=== PATIENT | female | born 1950 | race American Indian/Alaskan Native ===

== ENCOUNTER 2019-01-12 23:29 | Inpatient (IN) | payer MEDICARE ==
[2019-01-12] MEDS ORDERED: MINERAL OIL/PETROLATUM, WHITE OPHTH OINT 3.5 GM OU PRN (23:54)
[2019-01-12] MEDS ORDERED: LIP THERAPY VASELINE TP PRN (23:54)
[2019-01-13] MEDS ORDERED: LORazepam 2 MG/ML VIAL IV ONE (00:03)
--- NOTE | 2019-01-13 00:03 | Emergency Department Report ---
ED Shortness of Breath HPI - General Stated Complaint: SOB Time Seen by Provider: 01/12/19 23:53 Source: family (sister), EMS Limitations: Altered Mental Status - History of Present Illness Initial Comments: 68-year-old female with only past medical history of a psychiatric condition and cerbral palsy presents to the hospital with acute respiratory distress that started 30 minutes prior to arrival. Pts sister/roomate/instrument lens inspector at the bedside. She states at patient's baseline she can speak but can't hold a full conversation and she gets assistance from a home health nurse to take care of her. She states that otherwise patient ambulates without difficulty. Patient also suffers from chronic constipation and takes MiraLAX and metamucil on the regular basis. Tonight her sister noticed that abdomen was more distended than usual. Patient went to the bathroom and had a large hard bowel movement and then developed shortness of breath. Upon arrival patient is on a nonrebreather with agonal respirations satting in the mid to high 90's. She does not respond to verbal or painful stimuli. Abdomen was noted to be hard and distended. Decision made to intubate the patient immediately upon arrival. Patient's only previous abdominal surgical history is a PEG tube which is no longer present. Patient's medications include trazodone, Seroquel, and Ativan. - Related Data Previous Rx's Medication Instructions Recorded Last Taken Type Ibuprofen [Motrin 400 MG tab] 400 mg PO Q8H PRN #30 tablet 12/07/13 Unknown Rx Allergies Allergy/AdvReac Type Severity Reaction Status Date / Time No Known Allergies Allergy Unverified 12/07/13 17:18 ED Review of Systems ROS: Stated complaint: SOB Other details as noted in HPI ED Past Medical Hx - Past Medical History Hx Seizures: Yes Hx Psychiatric Treatment: Yes (schizophrenia) Additional medical history: Chronic Constipation. cerbral palsy - Surgical History Past Surgical History?: Yes Additional Surgical History: PEG tube placement in the past - Social History Smoking Status: Never Smoker Substance Use Type: None - Medications Home Medications: Home Medications Medication Instructions Recorded Confirmed Last Taken Type Ibuprofen [Motrin 400 MG tab] 400 mg PO Q8H PRN #30 tablet 12/07/13 Unknown Rx ED Physical Exam - Other Other exam information: General: Positive distress Head: Atraumatic Eyes: normal appearance ENT: Moist mucous membranes Neck: Normal appearance Chest: Tachypnea, agonal respirations, diminished breath sounds CV: Tachycardic regular rhythm Abdomen: Firm, distended Back: Normal inspection Extremity: Normal inspection Neuro: Lethargic, not follow commands, nonverbal ED Course Vital Signs 01/12/19 01/12/19 01/13/19 23:38 23:45 00:00 Temperature Pulse Rate 144 H 124 H 118 H Respiratory 19 22 16 Rate Blood Pressure 134/92 124/96 124/96 Blood Pressure [Right] O2 Sat by Pulse 95 96 Oximetry 01/13/19 01/13/19 01/13/19 00:15 00:30 00:45 Temperature Pulse Rate 115 H 113 H 112 H Respiratory 18 15 14 Rate Blood Pressure 129/88 137/93 145/95 Blood Pressure [Right] O2 Sat by Pulse Oximetry 01/13/19 01/13/19 01/13/19 01:00 01:01 01:36 Temperature 98.4 F Pulse Rate 111 H 112 H 109 H Respiratory 13 14 11 L Rate Blood Pressure 136/94 136/94 Blood Pressure 136/94 [Right] O2 Sat by Pulse 99 Oximetry 01/13/19 01:45 Temperature Pulse Rate 108 H Respiratory 13 Rate Blood Pressure Blood Pressure [Right] O2 Sat by Pulse 100 Oximetry - Intubation Time Out Performed: Yes Sedative: Etomidate Mg Given: 20 Paralytic: Succinylcholine Mg Given: 100 Laryngoscope: Samantha Size: 3 ET Tube Size: 7.5 Tube Secured Depth (cm): 22 Tube Secured Location: lips Tube Placement Confirmation: visualized tube passing t, equal breath sounds bilat, no breath sounds over epi, confirmation by capnometr Patient Tolerated Procedure: well Intubation Complications: none ED Medical Decision Making - Lab Data Result diagrams: 01/13/19 00:27 01/13/19 00:27 Lab Results 01/13/19 01/13/19 01/13/19 Range/Units 00:27 00:27 00:27 WBC 6.7 (4.5-11.0) K/mm3 RBC 3.36 L (3.65-5.03) M/mm3 Hgb 10.3 (10.1-14.3) gm/dl Hct 31.2 (30.3-42.9) % MCV 93 (79-97) fl MCH 31 (28-32) pg MCHC 33 (30-34) % RDW 14.0 (13.2-15.2) % Plt Count 194 (140-440) K/mm3 Lymph % (Auto) 4.2 L (13.4-35.0) % Emanuel % (Auto) 6.5 (0.0-7.3) % Eos % (Auto) 0.0 (0.0-4.3) % Baso % (Auto) 0.2 (0.0-1.8) % Lymph # 0.3 L (1.2-5.4) K/mm3 Emanuel # 0.4 (0.0-0.8) K/mm3 Eos # 0.0 (0.0-0.4) K/mm3 Baso # 0.0 (0.0-0.1) K/mm3 Seg Neutrophils % 89.1 H (40.0-70.0) % Seg Neutrophils # 5.9 (1.8-7.7) K/mm3 PT 14.0 (12.2-14.9) Sec. INR 1.09 (0.87-1.13) APTT TNR D-Dimer 135.00 (0-234) ng/mlDDU POC ABG pH (7.35-7.45) POC ABG pCO2 (35-45) POC ABG pO2 (80-105) POC ABG HCO3 (22-26 mml/L) POC ABG Total CO2 (23-27mmol/L) POC ABG O2 Sat POC ABG Base Excess ((-2) - (+3)mmol/L) VBG pH 7.178 L* (7.320-7.420) FiO2 % Sodium (137-145) mmol/L Potassium (3.6-5.0) mmol/L Chloride (98-107) mmol/L Carbon Dioxide (22-30) mmol/L Anion Gap mmol/L BUN (7-17) mg/dL Creatinine (0.7-1.2) mg/dL Estimated GFR ml/min BUN/Creatinine Ratio % Glucose (65-100) mg/dL Lactic Acid (0.7-2.0) mmol/L Calcium (8.4-10.2) mg/dL Total Bilirubin (0.1-1.2) mg/dL AST (5-40) units/L ALT (7-56) units/L Alkaline Phosphatase (35-129) units/L Ammonia (25-60) umol/L Total Creatine Kinase (30-135) units/L CK-MB (CK-2) (0.0-4.0) ng/mL CK-MB (CK-2) Rel Index (0-4) Troponin T (0.00-0.029) ng/mL NT-Pro-B Natriuret Pep (0-900) pg/mL Total Protein (6.3-8.2) g/dL Albumin (3.9-5) g/dL Albumin/Globulin Ratio % 01/13/19 01/13/19 01/13/19 Range/Units 00:27 00:27 00:27 WBC (4.5-11.0) K/mm3 RBC (3.65-5.03) M/mm3 Hgb (10.1-14.3) gm/dl Hct (30.3-42.9) % MCV (79-97) fl MCH (28-32) pg MCHC (30-34) % RDW (13.2-15.2) % Plt Count (140-440) K/mm3 Lymph % (Auto) (13.4-35.0) % Emanuel % (Auto) (0.0-7.3) % Eos % (Auto) (0.0-4.3) % Baso % (Auto) (0.0-1.8) % Lymph # (1.2-5.4) K/mm3 Emanuel # (0.0-0.8) K/mm3 Eos # (0.0-0.4) K/mm3 Baso # (0.0-0.1) K/mm3 Seg Neutrophils % (40.0-70.0) % Seg Neutrophils # (1.8-7.7) K/mm3 PT (12.2-14.9) Sec. INR (0.87-1.13) APTT D-Dimer (0-234) ng/mlDDU POC ABG pH (7.35-7.45) POC ABG pCO2 (35-45) POC ABG pO2 (80-105) POC ABG HCO3 (22-26 mml/L) POC ABG Total CO2 (23-27mmol/L) POC ABG O2 Sat POC ABG Base Excess ((-2) - (+3)mmol/L) VBG pH (7.320-7.420) FiO2 % Sodium 141 (137-145) mmol/L Potassium 4.2 (3.6-5.0) mmol/L Chloride 109.1 H (98-107) mmol/L Carbon Dioxide 20 L (22-30) mmol/L Anion Gap 16 mmol/L BUN 29 H (7-17) mg/dL Creatinine 0.7 (0.7-1.2) mg/dL Estimated GFR > 60 ml/min BUN/Creatinine Ratio 41 % Glucose 175 H (65-100) mg/dL Lactic Acid 2.90 H* (0.7-2.0) mmol/L Calcium 7.8 L (8.4-10.2) mg/dL Total Bilirubin < 0.20 (0.1-1.2) mg/dL AST 33 (5-40) units/L ALT 28 (7-56) units/L Alkaline Phosphatase 85 (35-129) units/L Ammonia 25.0 (25-60) umol/L Total Creatine Kinase 106 (30-135) units/L CK-MB (CK-2) 7.7 H (0.0-4.0) ng/mL CK-MB (CK-2) Rel Index 7.2 H (0-4) Troponin T < 0.010 (0.00-0.029) ng/mL NT-Pro-B Natriuret Pep 52.36 (0-900) pg/mL Total Protein 6.0 L (6.3-8.2) g/dL Albumin 3.3 L (3.9-5) g/dL Albumin/Globulin Ratio 1.2 % 01/13/19 Range/Units 02:14 WBC (4.5-11.0) K/mm3 RBC (3.65-5.03) M/mm3 Hgb (10.1-14.3) gm/dl Hct (30.3-42.9) % MCV (79-97) fl MCH (28-32) pg MCHC (30-34) % RDW (13.2-15.2) % Plt Count (140-440) K/mm3 Lymph % (Auto) (13.4-35.0) % Emanuel % (Auto) (0.0-7.3) % Eos % (Auto) (0.0-4.3) % Baso % (Auto) (0.0-1.8) % Lymph # (1.2-5.4) K/mm3 Emanuel # (0.0-0.8) K/mm3 Eos # (0.0-0.4) K/mm3 Baso # (0.0-0.1) K/mm3 Seg Neutrophils % (40.0-70.0) % Seg Neutrophils # (1.8-7.7) K/mm3 PT (12.2-14.9) Sec. INR (0.87-1.13) APTT D-Dimer (0-234) ng/mlDDU POC ABG pH 7.276 L (7.35-7.45) POC ABG pCO2 49.4 H (35-45) POC ABG pO2 156 H (80-105) POC ABG HCO3 23.0 (22-26 mml/L) POC ABG Total CO2 24 (23-27mmol/L) POC ABG O2 Sat 99 POC ABG Base Excess -4 ((-2) - (+3)mmol/L) VBG pH (7.320-7.420) FiO2 50 % Sodium (137-145) mmol/L Potassium (3.6-5.0) mmol/L Chloride (98-107) mmol/L Carbon Dioxide (22-30) mmol/L Anion Gap mmol/L BUN (7-17) mg/dL Creatinine (0.7-1.2) mg/dL Estimated GFR ml/min BUN/Creatinine Ratio % Glucose (65-100) mg/dL Lactic Acid (0.7-2.0) mmol/L Calcium (8.4-10.2) mg/dL Total Bilirubin (0.1-1.2) mg/dL AST (5-40) units/L ALT (7-56) units/L Alkaline Phosphatase (35-129) units/L Ammonia (25-60) umol/L Total Creatine Kinase (30-135) units/L CK-MB (CK-2) (0.0-4.0) ng/mL CK-MB (CK-2) Rel Index (0-4) Troponin T (0.00-0.029) ng/mL NT-Pro-B Natriuret Pep (0-900) pg/mL Total Protein (6.3-8.2) g/dL Albumin (3.9-5) g/dL Albumin/Globulin Ratio % - EKG Data -: EKG Interpreted by Me EKG shows normal: sinus rhythm, ST-T waves (no stemi or t inv) Rate: tachycardia (107) - Radiology Data Radiology results: report reviewed CHEST 1 VIEW INDICATION: ETT placement. COMPARISON: Endotracheal tube and NG tube in satisfactory position. FINDINGS: Support devices: None. Heart: Within normal limits. Lungs/Pleura: Left basilar atelectasis. Additional findings: Bowel distention and prominent stool partially imaged. ABDOMEN 1 VIEW(S) INDICATION / CLINICAL INFORMATION: distended abd. COMPARISON: None available. FINDINGS: TUBES / LINES: NG tube in satisfactory position. BOWEL GAS PATTERN: Prominent constipation with possible impaction. Diffuse small bowel distention. ADDITIONAL FINDINGS: No significant additional findings. . CT head/brain wo con INDICATION: ams, intubated. TECHNIQUE: All CT scans at this location are performed using the following dose modulation technique: Automated exposure control. CONTRAST: None. COMPARISON: 01/13/2019. FINDINGS: The ventricular system is appropriate in size and configuration without midline shift. Negative for mass, stroke or hemorrhage. Imaged portions the paranasal sinuses are clear. IMPRESSION: Negative CT brain without contrast. CT angio chest INDICATION / CLINICAL INFORMATION: ams, resp distress, intubation. TECHNIQUE: Axial CT images were obtained after injection of IV contrast using CTA protocol. 3 plane MIP / 3D reconstructions were produced. All CT scans at this location are performed using CT dose reduction for ALARA by means of automated exposure control. COMPARISON: None available. FINDINGS: Small basilar effusions have associated atelectasis. Negative for mass or significant infiltrate. No mediastinal mass or adenopathy. The esophagus is dilated and filled with fluid. The endotracheal tube and NG tube are in satisfactory position. Negative for aneurysm, dissection or pulmonary embolus. Imaging of the upper abdomen demonstrates marked constipation and gastric distention which contains dependent debris. Diffuse soft tissue anasarca is present. IMPRESSION: 1. Negative for pulmonary embolus or pneumonia. 2. Small basilar effusions with associated atelectasis. 3. Esophagus distended with fluid. 4. Prominent constipation and gastric distention. CT abdomen pelvis w con INDICATION: abd distention, chronic constipation. TECHNIQUE: All CT scans at this location are performed using the following dose modulation technique: Automated exposure control. CONTRAST: Omnipaque 350, 80 cc IV injection. COMPARISON: None available. CT ABDOMEN: The parenchymal organs are unremarkable in appearance other than a benign-appearing left renal cyst. There is severe constipation. The stomach is distended and contains dependent debris. Small bowel is dilated diffusely. Negative for abdominal fluid collection. Diffuse soft tissue anasarca is present. CT PELVIS: Fecal impaction at the upper rectum. Negative for pelvic fluid collection. IMPRESSION: 1. Severe constipation with distal impaction. 2. Small bowel ileus. 3. Diffuse soft tissue anasarca. 4. Gastric distention with dependent debris. - Medical Decision Making after evaluation it appears the patient's respiratory failure is related to severe fecal impaction and constipation causing abdominal distention, gastric distention, and bibasilar atelectasis. Small effusion is also noted. Gastric contents suctioned out with NG tube. At disposition a soapsuds enema has been ordered and awaiting Horan catheter placement and UA collection. Initial venous was pH is 7.1. However ABG performed showed mild respiratory acidosis. Respiratory rate was increased from 10 to 14 and O2 saturation was adjusted by respiratory therapist. hospitalist Informed of admission. pt Did have extravasation of contrast during CT. warm compress applied to right arm - Differential Diagnosis pe, chf, pneumonia, aspiration, obstuction, ich, ileus, Critical Care Time: No Critical care attestation.: If time is entered above; I have spent that time in minutes in the direct care of this critically ill patient, excluding procedure time. ED Disposition Clinical Impression: Fecal impaction, Constipation, Respiratory failure requiring intubation, Ileus, Cerebral palsy, Dehydration Disposition: -09 OP ADMIT IP TO THIS HOSP Is pt being admited?: Yes Condition: Stable Time of Disposition: 02:30 (Dr Meier/[facility])
[2019-01-13] MEDS ORDERED: MIDAZOLAM 2 MG/2 ML INJ IV PRN (00:04)
[2019-01-13] MEDS ORDERED: fentaNYL 100 MCG/2 ML INJ IV PRN (00:04)
[2019-01-13] MEDS ORDERED: LORazepam 2 MG/ML VIAL ONE (00:06)
[2019-01-13] MEDS ORDERED: SODIUM CHLORIDE 0.9% 1000 ML 1,000 ML IV ONE (00:16)
--- NOTE | 2019-01-13 00:40 | XRay Report ---
CHEST 1 VIEW INDICATION: ETT placement. COMPARISON: Endotracheal tube and NG tube in satisfactory position. FINDINGS: Support devices: None. Heart: Within normal limits. Lungs/Pleura: Left basilar atelectasis. Additional findings: Bowel distention and prominent stool partially imaged. Signer Name: Dread Mullen MD Signed: 01/13/2019 12:36 AM Workstation Name: [id number]
--- NOTE | 2019-01-13 00:41 | XRay Report ---
ABDOMEN 1 VIEW(S) INDICATION / CLINICAL INFORMATION: distended abd. COMPARISON: None available. FINDINGS: TUBES / LINES: NG tube in satisfactory position. BOWEL GAS PATTERN: Prominent constipation with possible impaction. Diffuse small bowel distention. ADDITIONAL FINDINGS: No significant additional findings. Signer Name: Dread Mullen MD Signed: 01/13/2019 12:36 AM Workstation Name: [email or web address]
[2019-01-13] MEDS: MIDAZOLAM 100 MG in SODIUM CHLORIDE 0.9% 80 ML IV SCH ×2 (00:47→22:24)
[2019-01-13 00:51] LABS: Basophils % (Auto) 0.2 % (0.0-1.8); Hematocrit 31.2 % (30.3-42.9); Hemoglobin 10.3 gm/dl (10.1-14.3); Lymphocytes # (Auto) 0.3 K/mm3 (1.2-5.4); Lymphocytes % (Auto) 4.2 % (13.4-35.0); Mean Corpuscular HGB Conc 33 % (30-34); Mean Corpuscular Volume 93 fl (79-97); Monocytes # (Auto) 0.4 K/mm3 (0.0-0.8); Monocytes % (Auto) 6.5 % (0.0-7.3); Platelet Count 194 K/mm3 (140-440); Red Blood Count 3.36 M/mm3 (3.65-5.03)
[2019-01-13] MEDS ORDERED: fentaNYL DRIP Premix 2,000 MCG/100 ML BAG IV SCH (01:00)
[2019-01-13 01:02] LABS: Creatine Kinase MB 7.7 ng/mL (0.0-4.0); INR 1.09 (0.87-1.13)
[2019-01-13 01:04] LABS: Alanine Aminotransferase 28 units/L (7-56); Albumin 3.3 g/dL (3.9-5); BUN/Creatinine Ratio 41; Blood Urea Nitrogen 29 mg/dL (7-17); Calcium 7.8 mg/dL (8.4-10.2); Hemolysis Index 61
[2019-01-13 01:26] LABS: Partial Thromboplastin Time TNR Sec. (24.2-36.6)
--- NOTE | 2019-01-13 02:01 | Cat Scan Report ---
. CT head/brain wo con INDICATION: ams, intubated. TECHNIQUE: All CT scans at this location are performed using the following dose modulation technique: Automated exposure control. CONTRAST: None. COMPARISON: 01/13/2019. FINDINGS: The ventricular system is appropriate in size and configuration without midline shift. Nega tive for mass, stroke or hemorrhage. Imaged portions the paranasal sinuses are clear. IMPRESSION: Negative CT brain without contrast. Signer Name: Dread Mullen MD Signed: 01/13/2019 1:56 AM Workstation Name: [id number]
--- NOTE | 2019-01-13 02:07 | Cat Scan Report ---
CT angio chest INDICATION / CLINICAL INFORMATION: ams, resp distress, intubation. TECHNIQUE: Axial CT images were obtained after injection of IV contrast using CTA protocol. 3 plane MIP / 3D rec onstructions were produced. All CT scans at this location are performed using CT dose reduction for A JACK by means of automated exposure control. COMPARISON: None available. FINDINGS: Small basilar effusions have associated atelectasis. Negative for mass or significant infiltrate. No mediastinal mass or adenopathy. The esophagus is dilated and filled with fluid. The endotracheal tube and NG tube are in satisfactory position. Negative for aneurysm, dissection or pulmonary embolus. Imaging of the upper abdomen demonstrates mar ked constipation and gastric distention which contains dependent debris. Diffuse soft tissue anasarca is present. IMPRESSION: 1. Negative for pulmonary embolus or pneumonia. 2. Small basilar effusions with associated atelectasis. 3. Esophagus distended with fluid. 4. Prominent constipation and gastric distention. Signer Name: Dread Mullen MD Signed: 01/13/2019 2:02 AM Workstation Name: [id number]
--- NOTE | 2019-01-13 02:13 | Cat Scan Report ---
CT abdomen pelvis w con INDICATION: abd distention, chronic constipation. TECHNIQUE: All CT scans at this location are performed using the following dose modulation technique: Automated exposure control. CONTRAST: Omnipaque 350, 80 cc IV injection. COMPARISON: None available. CT ABDOMEN: The parenchymal organs are unremarkable in appearance other than a benign-appearing left renal cyst. There is severe constipation. The stomach is distended and contains dependent debris. Sma ll bowel is dilated diffusely. Negative for abdominal fluid collection. Diffuse soft tissue anasarca is present. CT PELVIS: Fecal impaction at the upper rectum. Negative for pelvic fluid collection. IMPRESSION: 1. Severe constipation with distal impaction. 2. Small bowel ileus. 3. Diffuse soft tissue anasarca. 4. Gastric distention with dependent debris. Signer Name: Dread Mullen MD Signed: 01/13/2019 2:09 AM Workstation Name: [id number]
[2019-01-13 03:29] LABS: Bacteria,Urine 1+ /HPF (Negative); Bilirubin,Urine NEG (Negative); Blood,Urine NEG (Negative); Color,Urine Yellow (Yellow); Mucus,Urine 1+ /HPF; Protein,Urine <15 mg/dL mg/dL (Negative); RBC,Urine < 1.0 /HPF (0.0-6.0); Urobilinogen,Urine < 2.0 mg/dL (<2.0)
[2019-01-13 03:36] LABS: WBC,Urine < 1.0 /HPF (0.0-6.0)
[2019-01-13] MEDS ORDERED: fentaNYL DRIP Premix 2,000 MCG/100 ML BAG IV ONE (03:47)
[2019-01-13] MEDS: fentaNYL DRIP Premix 2,000 MCG/100 ML BAG IV SCH ×2 (03:58→19:10)
[2019-01-13] MEDS ORDERED: ONDANSETRON 4 MG/2 ML INJ IV PRN (04:55)
--- NOTE | 2019-01-13 05:29 | History and Physical Report ---
History of Present Illness Date of examination: 01/13/19 Date of admission: 01/13/19 02:34 Chief complaint: Respiratory distress Abdominal distention History of present illness: 68-year-old female with known history of cerebral palsy was brought into the emergency room in respiratory distress. She is also known to have history of chronic constipation. She has been noticed to have increasing swelling of abdomen over the past few days. Upon arrival in the emergency room she was found to be constipated. She had a large bowel movement upon arrival. However because of her respiratory distress she was subsequently intubated. Her work-up however including CT of the abdomen shows fecal impaction. There has been no history of nausea vomiting. No fever or chills. Past History Past Medical History: other (Cerebral palsy, history of chronic constipation.) Past Surgical History: Other (History of PEG tube placement in the past) Social history: no significant social history Family history: no significant family history Medications and Allergies Allergies Allergy/AdvReac Type Severity Reaction Status Date / Time No Known Allergies Allergy Unverified 12/07/13 17:18 Home Medications Medication Instructions Recorded Confirmed Last Taken Type LORazepam 1 mg PO TID 01/13/19 01/13/19 Unknown History Quetiapine Fumarate [SEROquel] 600 mg PO DAILY 01/13/19 01/13/19 Unknown History traZODone [Desyrel] 100 mg PO DAILY 01/13/19 01/13/19 Unknown History Active Meds: Active Medications Acetaminophen (Tylenol) 650 mg NE Q6H PRN PRN Reason: Pain MILD(1-3)/Fever >100.5/WOOD Bisacodyl (Dulcolax) 10 mg NE QDAY PRN PRN Reason: constipation unrelieved by MOM Fentanyl (Sublimaze) 50 mcg IV Q10MIN PRN PRN Reason: ANALGESIA Last Admin: 01/13/19 01:05 Dose: 50 mcg Documented by: Heparin Sodium (Porcine) (Heparin) 5,000 unit SUB-Q Q8HR JOAN Hydrophilic Ointment (Vaseline Lip Therapy) 1 applic TP Q2HR PRN PRN Reason: Dry Lips Midazolam HCl 100 mg/ Sodium (Chloride) 100 mls @ 2 mls/hr IV TITR JOAN; Protocol Last Titration: 01/13/19 01:10 Dose: 3 mg/hr, 3 mls/hr Documented by: Fentanyl Citrate (Fentanyl Drip Premix) 2,000 mcg in 100 mls @ 1.86 mls/hr IV TITR JOAN; Protocol Last Admin: 01/13/19 03:58 Dose: 1 mcg/kg/hr, 1.86 mls/hr Documented by: Sodium Chloride (Nacl 0.9% 1000 Ml) 1,000 mls @ 75 mls/hr IV DIRECT JOAN Midazolam HCl (Versed) 2 mg IV Q10MIN PRN PRN Reason: Sedation Multi-Ingred Cream/Lotion/Oil/Oint (Artificial Tears Ophth Oint) 1 applic OU Q4HR PRN PRN Reason: Dry Eye(s) Ondansetron HCl (Zofran) 4 mg IV Q8H PRN PRN Reason: Nausea And Vomiting Sodium Chloride (Sodium Chloride Flush Syringe 10 Ml) 10 ml IV BID JOAN Sodium Chloride (Sodium Chloride Flush Syringe 10 Ml) 10 ml IV PRN PRN PRN Reason: LINE FLUSH Review of Systems ROS unobtainable: due to endotracheal tube Exam - Constitutional Vitals: Temp Pulse Resp BP Pulse Ox 98.4 F 113 H 16 146/97 98 01/13/19 01:01 01/13/19 05:14 01/13/19 03:00 01/13/19 05:14 01/13/19 05:14 General appearance: Present: no acute distress, cachectic, other (Intubated and sedated) - EENT Eyes: Present: PERRL, EOM intact ENT: hearing intact, clear oral mucosa, dentition normal - Neck Neck: Present: supple, normal ROM - Respiratory Respiratory effort: normal Respiratory: bilateral: CTA - Cardiovascular Rhythm: regular Heart Sounds: Present: S1 & S2 - Extremities Extremities: no ischemia, pulses intact Extremity abnormal: edema (Trace bilateral ankle edema) Peripheral Pulses: within normal limits - Abdominal General gastrointestinal: Present: distended - Rectal Rectal Exam: deferred - Integumentary Integumentary: Present: clear, warm, dry - Musculoskeletal Musculoskeletal: other (Patient intubated and sedated.) - Neurologic Neurologic: other (Patient is intubated and sedated ) Results - Labs CBC & Chem 7: 01/13/19 00:27 01/13/19 00:27 Labs: Abnormal lab results 01/13/19 01/13/19 01/13/19 Range/Units 00:27 00:27 00:27 RBC 3.36 L (3.65-5.03) M/mm3 Lymph % (Auto) 4.2 L (13.4-35.0) % Lymph # 0.3 L (1.2-5.4) K/mm3 Seg Neutrophils % 89.1 H (40.0-70.0) % APTT (24.2-36.6) Sec. POC ABG pH (7.35-7.45) POC ABG pCO2 (35-45) POC ABG pO2 (80-105) VBG pH 7.178 L* (7.320-7.420) Chloride 109.1 H (98-107) mmol/L Carbon Dioxide 20 L (22-30) mmol/L BUN 29 H (7-17) mg/dL Glucose 175 H (65-100) mg/dL Lactic Acid (0.7-2.0) mmol/L Calcium 7.8 L (8.4-10.2) mg/dL CK-MB (CK-2) 7.7 H (0.0-4.0) ng/mL CK-MB (CK-2) Rel Index 7.2 H (0-4) Total Protein 6.0 L (6.3-8.2) g/dL Albumin 3.3 L (3.9-5) g/dL Ur Specific [place] (1.003-1.030) 01/13/19 01/13/19 01/13/19 Range/Units 00:27 02:14 02:22 RBC (3.65-5.03) M/mm3 Lymph % (Auto) (13.4-35.0) % Lymph # (1.2-5.4) K/mm3 Seg Neutrophils % (40.0-70.0) % APTT (24.2-36.6) Sec. POC ABG pH 7.276 L (7.35-7.45) POC ABG pCO2 49.4 H (35-45) POC ABG pO2 156 H (80-105) VBG pH (7.320-7.420) Chloride (98-107) mmol/L Carbon Dioxide (22-30) mmol/L BUN (7-17) mg/dL Glucose (65-100) mg/dL Lactic Acid 2.90 H* 0.30 L (0.7-2.0) mmol/L Calcium (8.4-10.2) mg/dL CK-MB (CK-2) (0.0-4.0) ng/mL CK-MB (CK-2) Rel Index (0-4) Total Protein (6.3-8.2) g/dL Albumin (3.9-5) g/dL Ur Specific [place] (1.003-1.030) 01/13/19 01/13/19 Range/Units 02:22 02:34 RBC (3.65-5.03) M/mm3 Lymph % (Auto) (13.4-35.0) % Lymph # (1.2-5.4) K/mm3 Seg Neutrophils % (40.0-70.0) % APTT 39.4 H (24.2-36.6) Sec. POC ABG pH (7.35-7.45) POC ABG pCO2 (35-45) POC ABG pO2 (80-105) VBG pH (7.320-7.420) Chloride (98-107) mmol/L Carbon Dioxide (22-30) mmol/L BUN (7-17) mg/dL Glucose (65-100) mg/dL Lactic Acid (0.7-2.0) mmol/L Calcium (8.4-10.2) mg/dL CK-MB (CK-2) (0.0-4.0) ng/mL CK-MB (CK-2) Rel Index (0-4) Total Protein (6.3-8.2) g/dL Albumin (3.9-5) g/dL Ur Specific [place] 1.051 H (1.003-1.030) Assessment and Plan - Patient Problems (1) Respiratory failure requiring intubation Current Visit: Yes Status: Acute Plan to address problem: Patient will be monitored in the intensive care unit. Cyber Threat Analyst has been consulted for further evaluation. (2) Cerebral palsy Current Visit: Yes Status: Acute Plan to address problem: Patient has known history of cerebral palsy. (3) Fecal impaction Current Visit: Yes Status: Acute Plan to address problem: She has been placed on an enema. We will also place a consult to gastroenterology for evaluation and further recommendation. (4) DVT prophylaxis Current Visit: Yes Status: Acute Plan to address problem: She has been placed on subcutaneous heparin (5) Full code status Current Visit: Yes Status: Acute
[2019-01-13] MEDS ORDERED: SODIUM CHLORIDE 0.9% 1000 ML 1,000 ML ONE ×2 (05:36→17:18)
[2019-01-13] MEDS ORDERED: HEPARIN 5,000 UNIT/1 ML VIAL ONE ×2 (05:37→14:04)
[2019-01-13] MEDS: SODIUM CHLORIDE 0.9% 1000 ML 1,000 ML IV SCH (05:52)
[2019-01-13] MEDS: HEPARIN 5,000 UNIT/1 ML VIAL SUB-Q SCH ×3 (05:52→21:46)
--- NOTE | 2019-01-13 07:37 | XRay Report ---
CHEST 1 VIEW INDICATION: follow up respiratory failure. COMPARISON: Previous day. FINDINGS: Support devices: NG tube an endotracheal tube unchanged. Heart: Within normal limits. Lungs/Pleura: Persistent basilar atelectasis left greater than right. Additional findings: Chronic constipation again noted. IMPRESSION: 1. No significant change. Signer Name: Derad Mullen MD Signed: 01/13/2019 7:33 AM Workstation Name: [id number]
--- NOTE | 2019-01-13 11:44 | Consultation ---
History of Present Illness Consult date: 01/13/19 Requesting physician: GREGORIO CHEN Reason for consult: other (Acute hypoxic respiratroy failure on MVS, Acute toxic-metabolic encephalopathy) History of present illness: 68-year-old female with only past medical history of a psychiatric condition and cerbral palsy presents to the hospital with acute respiratory distress that started 30 minutes prior to arrival to ED. Pts sister/hops farmworker at the bedside. Sister states at patient's baseline she can speak but can't hold a full conversation and she gets assistance from a home health nurse to take care of her. She states that otherwise patient ambulates without difficulty. Patient also suffers from chronic constipation and takes MiraLAX and metamucil on the regular basis. On her sister noticed that abdomen was more distended than usual. Patient went to the bathroom and had a large hard bowel movement and then developed shortness of breath. Upon arrival patient is on a nonrebreather with agonal respirations satting in the mid to high 90's. She does not respond to verbal or painful stimuli. Abdomen was noted to be hard and distended. Decision made to intubate the patient immediately upon arrival. Patient's only previous abdominal surgical history is a PEG tube which is no longer present. Patient's medications include trazodone, Seroquel, and Ativan. I have been consulted fro critical care management. Patient was seen and examined. Vitals, labs, medications, chart and imaging reviewed. Sister at the bedside Past History Past Medical History: other (Cerebral palsy, history of chronic constipation.) Past Surgical History: Other (History of PEG tube placement in the past) Social history: no significant social history Family history: no significant family history Medications and Allergies Allergies Allergy/AdvReac Type Severity Reaction Status Date / Time No Known Allergies Allergy Unverified 12/07/13 17:18 Home Medications Medication Instructions Recorded Confirmed Last Taken Type LORazepam 1 mg PO TID 01/13/19 01/13/19 Unknown History Quetiapine Fumarate [SEROquel] 600 mg PO DAILY 01/13/19 01/13/19 Unknown History traZODone [Desyrel] 100 mg PO DAILY 01/13/19 01/13/19 Unknown History Haldol 5 mg PO PCHS 01/14/19 01/14/19 Unknown History Active Meds: Active Medications Acetaminophen (Tylenol) 650 mg [place] Q6H PRN PRN Reason: Pain MILD(1-3)/Fever >100.5/WOOD Bisacodyl (Dulcolax) 10 mg [place] QDAY PRN PRN Reason: constipation unrelieved by MOM Fentanyl (Sublimaze) 50 mcg IV Q10MIN PRN PRN Reason: ANALGESIA Last Admin: 01/13/19 01:05 Dose: 50 mcg Documented by: Heparin Sodium (Porcine) (Heparin) 5,000 unit SUB-Q Q8HR JOAN Last Admin: 01/13/19 05:52 Dose: 5,000 unit Documented by: Hydrophilic Ointment (Vaseline Lip Therapy) 1 applic TP Q2HR PRN PRN Reason: Dry Lips Midazolam HCl 100 mg/ Sodium (Chloride) 100 mls @ 2 mls/hr IV TITR JOAN; Protocol Last Titration: 01/13/19 01:10 Dose: 3 mg/hr, 3 mls/hr Documented by: Fentanyl Citrate (Fentanyl Drip Premix) 2,000 mcg in 100 mls @ 1.86 mls/hr IV TITR JOAN; Protocol Last Titration: 01/13/19 06:17 Dose: 1.08 mcg/kg/hr, 2 mls/hr Documented by: Sodium Chloride (Nacl 0.9% 1000 Ml) 1,000 mls @ 75 mls/hr IV DIRECT JOAN Last Admin: 01/13/19 05:52 Dose: 75 mls/hr Documented by: Midazolam HCl (Versed) 2 mg IV Q10MIN PRN PRN Reason: Sedation Multi-Ingred Cream/Lotion/Oil/Oint (Artificial Tears Ophth Oint) 1 applic OU Q4HR PRN PRN Reason: Dry Eye(s) Ondansetron HCl (Zofran) 4 mg IV Q8H PRN PRN Reason: Nausea And Vomiting Sodium Chloride (Sodium Chloride Flush Syringe 10 Ml) 10 ml IV BID JOAN Sodium Chloride (Sodium Chloride Flush Syringe 10 Ml) 10 ml IV PRN PRN PRN Reason: LINE FLUSH Review of Systems ROS unobtainable: due to endotracheal tube, due to mental status Physical Examination Vital signs: Vital Signs Pulse Resp BP 144 H 19 134/92 01/12/19 23:38 01/12/19 23:38 01/12/19 23:38 Vitals reviwed Constitutional: appears uncomfortable, other (chronically ill looking thin AAF with cerebral palsy fascies on MVS with mildly increased resp effort) Eyes: non-icteric ENT: oropharynx moist, other (ETT 23 cm SHERMAN) Neck: supple, no lymphadenopathy, no JVD Effort: mildly labored Ascultation: Bilateral: rales Percussion: Bilateral: not dull Cardiovascular: regular rate and rhythm Gastrointestinal: RLL mass felt( appears to be stool), hypoactive bowel sounds, soft, non-tender, distended Integumentary: rash Extremities: no cyanosis, pulses normal, no ischemia or petechiae Neurologic: pupils equal and round, unable to assess Psychiatric: other (unable to assess re: AMS) Results - Laboratory Findings CBC and BMP: 01/14/19 05:13 01/14/19 05:13 ABG POC ABG pH 7.276 (7.35-7.45) L 01/13/19 02:14 POC ABG pCO2 49.4 (35-45) H 01/13/19 02:14 POC ABG pO2 156 (80-105) H 01/13/19 02:14 POC ABG HCO3 23.0 (22-26 mml/L) 01/13/19 02:14 POC ABG Total CO2 24 (23-27mmol/L) 01/13/19 02:14 POC ABG O2 Sat 99 01/13/19 02:14 PT/INR, D-dimer PT 14.0 Sec. (12.2-14.9) 01/13/19 00:27 INR 1.09 (0.87-1.13) 01/13/19 00:27 D-Dimer 135.00 ng/mlDDU (0-234) 01/13/19 00:27 Abnormal lab findings: Abnormal Labs 01/13/19 01/13/19 01/13/19 00:27 00:27 00:27 RBC 3.36 L Lymph % (Auto) 4.2 L Lymph # 0.3 L Seg Neutrophils % 89.1 H APTT POC ABG pH POC ABG pCO2 POC ABG pO2 VBG pH 7.178 L* Chloride 109.1 H Carbon Dioxide 20 L BUN 29 H Glucose 175 H Lactic Acid Calcium 7.8 L CK-MB (CK-2) 7.7 H CK-MB (CK-2) Rel Index 7.2 H Total Protein 6.0 L Albumin 3.3 L Ur Specific [place] 01/13/19 01/13/19 01/13/19 00:27 02:14 02:22 RBC Lymph % (Auto) Lymph # Seg Neutrophils % APTT POC ABG pH 7.276 L POC ABG pCO2 49.4 H POC ABG pO2 156 H VBG pH Chloride Carbon Dioxide BUN Glucose Lactic Acid 2.90 H* 0.30 L Calcium CK-MB (CK-2) CK-MB (CK-2) Rel Index Total Protein Albumin Ur Specific [place] 01/13/19 01/13/19 02:22 02:34 RBC Lymph % (Auto) Lymph # Seg Neutrophils % APTT 39.4 H POC ABG pH POC ABG pCO2 POC ABG pO2 VBG pH Chloride Carbon Dioxide BUN Glucose Lactic Acid Calcium CK-MB (CK-2) CK-MB (CK-2) Rel Index Total Protein Albumin Ur Specific [place] 1.051 H - Diagnostic Findings Chest x-ray: image reviewed Assessment and Plan Acute Hypoxemic and Hypercapnic Respiratory failure requiring intubation( possible from fecal impaction/mechanical causes) Anemia (Normocytic) Acute Encephalopathy Moderate-Severe protein calorie malnutrition Cerebral palsy Fecal impaction - VAP bundle addressed -Bowel regimen- tap water enema, magnesium citrate -Agitation management -Placement of feeding tube for oral medications, enteric nutrition - VAP bundle addressed (Aspiration precautions, HOB > 40 degrees) - Lung protective strategies - Wean FIO2 for O2 sats >90% - Bronchodilators with pulmonary hygiene per RT - CXR's & ABG in the am -Serial KUBs -Pain management per CPOT - follow clinically off AB's - VTE prophylaxis - Stress ulcer prophylaxis - Acuchecks with glycemic control for SSI (While critically ill target blood glucose of 140-180 mg/dL; avoid hypoglycemia) - Mobility protocol for pressure ulcer prevention - Monitor hemodynamics closely - Monitor electrolyte profile closely and replete as indicated - Resume chronic home medications per attending and as clinically indicated - continue other care per attending / other consultants Discussed with RT and RN Discussed with the sister and the patient's career developer at the bedside. Goasl of care and prognosis discussed extensively CONDITION: CRITICAL PROGNOSIS: GUARDED CODE STATUS: FULL CODE The high probability of a clinically significant, sudden or life-threatening deterioration of the [cardiac, respiratory, gastrointestinal & neurologic] system(s) required my full and direct attention, intervention and personal management. The aggregate critical care time was [65] minutes without overlap. Time includes spent on; [x] Data Review and interpretation [x] Patient assessment and monitoring of vital signs [x] Documentation [x] Medication orders and management
--- NOTE | 2019-01-13 12:06 | Event Note ---
Date: 01/13/19 Patient seen and examined. We will continue the plan as outlined in H&P. Time spent equals 35 minutes with greater than 50% spent on coordination and care and counseling.
--- NOTE | 2019-01-13 16:46 | XRay Report ---
ABDOMEN 1 VIEW(S) INDICATION / CLINICAL INFORMATION: NG tube placement. COMPARISON: CT abdomen and pelvis done earlier on 01/13/2019 FINDINGS: TUBES / LINES: The tip of the esophagogastric tube projects over the body the stomach. BOWEL GAS PATTERN/EXTRALUMINAL GAS: There is unchanged severe constipation. No pneumatosis or seconda ry signs of free air. ADDITIONAL FINDINGS: No significant additional findings. IMPRESSION: 1. Esophagogastric tube tip projects over the body the stomach. Signer Name: Rufus Olivier MD Signed: 01/13/2019 4:42 PM Workstation Name: [email or web address]
[2019-01-13] MEDS ORDERED: ETOMIDATE 20 MG/10 ML INJ IV ONE (23:45)
[2019-01-13] MEDS ORDERED: SUCCINYLCHOLINE CHLORIDE 200 MG/10 ML INJ MDV ONE (23:45)
--- NOTE | 2019-01-14 03:11 | XRay Report ---
CHEST 1 VIEW INDICATION: follow up respiratory failure. COMPARISON: Previous day. FINDINGS: Support devices: Endotracheal tube in satisfactory position. The NG tube has its sidehole in the dist al esophagus. This should be advanced 6-8 cm. Heart: Within normal limits. Lungs/Pleura: Basilar atelectasis is mildly improved. Additional findings: None. IMPRESSION: 1. Advanced NG tube 6-8 cm. 2. Improving basilar atelectasis. Signer Name: Dread Mullen MD Signed: 01/14/2019 3:06 AM Workstation Name: [employer]
[2019-01-14 05:59] LABS: Basophils % (Auto) 0.4 % (0.0-1.8); Eosinophils # (Auto) 0.1 K/mm3 (0.0-0.4); Eosinophils % (Auto) 0.9 % (0.0-4.3); Hematocrit 27.4 % (30.3-42.9); Hemoglobin 9.3 gm/dl (10.1-14.3); Lymphocytes # (Auto) 1.4 K/mm3 (1.2-5.4); Lymphocytes % (Auto) 22.2 % (13.4-35.0); Mean Corpuscular HGB Conc 34 % (30-34); Mean Corpuscular Volume 93 fl (79-97); Monocytes # (Auto) 0.7 K/mm3 (0.0-0.8); Monocytes % (Auto) 11.9 % (0.0-7.3); Platelet Count 155 K/mm3 (140-440); Red Blood Count 2.96 M/mm3 (3.65-5.03); Red Cell Distribution Width 14.3 % (13.2-15.2)
[2019-01-14 06:15] LABS: INR 1.11 (0.87-1.13)
[2019-01-14 06:16] LABS: BUN/Creatinine Ratio 37; Blood Urea Nitrogen 22 mg/dL (7-17); Hemolysis Index 15
[2019-01-14 06:21] LABS: Partial Thromboplastin Time 31.9 Sec. (24.2-36.6)
[2019-01-14] MEDS: HEPARIN 5,000 UNIT/1 ML VIAL SUB-Q SCH ×2 (06:54→14:00)
[2019-01-14] MEDS: SODIUM CHLORIDE 0.9% 1000 ML 1,000 ML IV SCH ×2 (06:55→20:36)
[2019-01-14] MEDS: fentaNYL DRIP Premix 2,000 MCG/100 ML BAG IV SCH (11:03)
--- NOTE | 2019-01-14 12:12 | Progress Note ---
Assessment and Plan Assessment and plan: Respiratory failure requiring intubation Cont vent weaning per protocols. Pulm following Cerebral palsy Patient has known history of cerebral palsy. Fecal impaction She has been placed on an enema. Await gastroenterology evaluation and recommendations. DVT prophylaxis History Interval history: No new issues Hospitalist Physical - Constitutional Vitals: Temp Pulse Resp BP Pulse Ox 99.5 F 83 14 101/58 100 01/14/19 07:51 01/14/19 10:00 01/13/19 18:13 01/14/19 08:53 01/14/19 09:00 General appearance: Present: no acute distress, cachectic, other (Intubated and sedated) - EENT Eyes: Present: PERRL, EOM intact ENT: hearing intact, clear oral mucosa, dentition normal - Neck Neck: Present: supple, normal ROM - Respiratory Respiratory effort: normal Respiratory: bilateral: CTA - Cardiovascular Rhythm: regular Heart Sounds: Present: S1 & S2. Absent: gallop, rub - Extremities Extremities: no ischemia, No edema, Full ROM - Abdominal General gastrointestinal: soft, non-tender, non-distended, normal bowel sounds - Integumentary Integumentary: Present: clear, warm, dry - Neurologic Neurologic: CNII-XII intact, moves all extremities Results - Labs CBC & Chem 7: 01/14/19 05:13 01/14/19 05:13 Labs: Laboratory Last Values WBC 6.1 K/mm3 (4.5-11.0) 01/14/19 05:13 RBC 2.96 M/mm3 (3.65-5.03) L 01/14/19 05:13 Hgb 9.3 gm/dl (10.1-14.3) L 01/14/19 05:13 Hct 27.4 % (30.3-42.9) L 01/14/19 05:13 MCV 93 fl (79-97) 01/14/19 05:13 MCH 31 pg (28-32) 01/14/19 05:13 MCHC 34 % (30-34) 01/14/19 05:13 RDW 14.3 % (13.2-15.2) 01/14/19 05:13 Plt Count 155 K/mm3 (140-440) 01/14/19 05:13 Lymph % (Auto) 22.2 % (13.4-35.0) 01/14/19 05:13 [place] % (Auto) 11.9 % (0.0-7.3) H 01/14/19 05:13 Eos % (Auto) 0.9 % (0.0-4.3) 01/14/19 05:13 Baso % (Auto) 0.4 % (0.0-1.8) 01/14/19 05:13 Lymph # 1.4 K/mm3 (1.2-5.4) 01/14/19 05:13 [place] # 0.7 K/mm3 (0.0-0.8) 01/14/19 05:13 Eos # 0.1 K/mm3 (0.0-0.4) 01/14/19 05:13 Baso # 0.0 K/mm3 (0.0-0.1) 01/14/19 05:13 Seg Neutrophils % 64.6 % (40.0-70.0) 01/14/19 05:13 Seg Neutrophils # 3.9 K/mm3 (1.8-7.7) 01/14/19 05:13 PT 14.2 Sec. (12.2-14.9) 01/14/19 05:13 INR 1.11 (0.87-1.13) 01/14/19 05:13 APTT 31.9 Sec. (24.2-36.6) 01/14/19 05:13 D-Dimer 135.00 ng/mlDDU (0-234) 01/13/19 00:27 POC ABG pH 7.416 (7.35-7.45) 01/14/19 06:06 POC ABG pCO2 36.6 (35-45) 01/14/19 06:06 POC ABG pO2 121 (80-105) H 01/14/19 06:06 POC ABG HCO3 23.5 (22-26 mml/L) 01/14/19 06:06 POC ABG Total CO2 25 (23-27mmol/L) 01/14/19 06:06 POC ABG O2 Sat 99 01/14/19 06:06 POC ABG Base Excess -1 ((-2) - (+3)mmol/L) 01/14/19 06:06 VBG pH 7.178 (7.320-7.420) L* 01/13/19 00:27 FiO2 30 % 01/14/19 06:06 Sodium 140 mmol/L (137-145) 01/14/19 05:13 Potassium 4.0 mmol/L (3.6-5.0) 01/14/19 05:13 Chloride 107.0 mmol/L (98-107) 01/14/19 05:13 Carbon Dioxide 21 mmol/L (22-30) L 01/14/19 05:13 Anion Gap 16 mmol/L 01/14/19 05:13 BUN 22 mg/dL (7-17) H 01/14/19 05:13 Creatinine 0.6 mg/dL (0.7-1.2) L 01/14/19 05:13 Estimated GFR > 60 ml/min 01/14/19 05:13 BUN/Creatinine Ratio 37 % 01/14/19 05:13 Glucose 62 mg/dL (65-100) L 01/14/19 05:13 Lactic Acid 0.30 mmol/L (0.7-2.0) L 01/13/19 02:22 Calcium 8.0 mg/dL (8.4-10.2) L 01/14/19 05:13 Total Bilirubin < 0.20 mg/dL (0.1-1.2) 01/13/19 00:27 AST 33 units/L (5-40) 01/13/19 00:27 ALT 28 units/L (7-56) 01/13/19 00:27 Alkaline Phosphatase 85 units/L (35-129) 01/13/19 00:27 Ammonia 25.0 umol/L (25-60) 01/13/19 00:27 Total Creatine Kinase 106 units/L (30-135) 01/13/19 00:27 CK-MB (CK-2) 7.7 ng/mL (0.0-4.0) H 01/13/19 00:27 CK-MB (CK-2) Rel Index 7.2 (0-4) H 01/13/19 00:27 Troponin T < 0.010 ng/mL (0.00-0.029) 01/13/19 00:27 NT-Pro-B Natriuret Pep 52.36 pg/mL (0-900) 01/13/19 00:27 Total Protein 6.0 g/dL (6.3-8.2) L 01/13/19 00:27 Albumin 3.3 g/dL (3.9-5) L 01/13/19 00:27 Albumin/Globulin Ratio 1.2 % 01/13/19 00:27 Urine Color Yellow (Yellow) 01/13/19 02:34 Urine Turbidity Slightly-cloudy (Clear) 01/13/19 02:34 Urine pH 5.0 (5.0-7.0) 01/13/19 02:34 Ur Specific [place] 1.051 (1.003-1.030) H 01/13/19 02:34 Urine Protein <15 mg/dl mg/dL (Negative) 01/13/19 02:34 Urine Glucose (UA) 50 mg/dL (Negative) 01/13/19 02:34 Urine Ketones Neg mg/dL (Negative) 01/13/19 02:34 Urine Blood Neg (Negative) 01/13/19 02:34 Urine Nitrite Neg (Negative) 01/13/19 02:34 Urine Bilirubin Neg (Negative) 01/13/19 02:34 Urine Urobilinogen < 2.0 mg/dL (<2.0) 01/13/19 02:34 Ur Leukocyte Esterase Neg (Negative) 01/13/19 02:34 Urine WBC (Auto) < 1.0 /HPF (0.0-6.0) 01/13/19 02:34 Urine RBC (Auto) < 1.0 /HPF (0.0-6.0) 01/13/19 02:34 U Epithel Cells (Auto) < 1.0 /HPF (0-13.0) 01/13/19 02:34 Urine Bacteria (Auto) 1+ /HPF (Negative) 01/13/19 02:34 Urine Mucus 1+ /HPF 01/13/19 02:34 Active Medications - Current Medications Current Medications: Generic Name Dose Route Start Last Admin Trade Name Freq PRN Reason Stop Dose Admin Acetaminophen 650 mg 01/13/19 04:55 Tylenol [place] Q6H PRN Pain MILD(1-3)/Fever >100.5/WOOD Bisacodyl 10 mg 01/13/19 04:55 Dulcolax [place] QDAY PRN constipation unrelieved by MOM Fentanyl 50 mcg 01/13/19 00:04 01/13/19 01:05 Sublimaze IV 50 mcg Q10MIN PRN Administration ANALGESIA Heparin Sodium (Porcine) 5,000 unit 01/13/19 06:00 01/14/19 06:54 Heparin SUB-Q 5,000 unit Q8HR JOAN Administration Hydrophilic Ointment 1 applic 01/12/19 23:54 Vaseline Lip Therapy TP Q2HR PRN Dry Lips Midazolam HCl 100 mg/ Sodium 100 mls @ 2 mls/hr 01/13/19 01:00 01/13/19 22:24 Chloride IV 4 mg/hr TITR JOAN 4 mls/hr Administration Protocol 2 MG/HR Fentanyl Citrate 2,000 mcg in 100 mls @ 1.86 mls/hr 01/13/19 04:00 01/14/19 11:03 Fentanyl Drip Premix IV 3 mcg/kg/hr TITR JOAN 5.579 mls/hr Administration Protocol 1 MCG/KG/HR Sodium Chloride 1,000 mls @ 75 mls/hr 01/13/19 05:00 01/14/19 06:55 Nacl 0.9% 1000 Ml IV 75 mls/hr DIRECT JOAN Administration Midazolam HCl 2 mg 01/13/19 00:04 Versed IV Q10MIN PRN Sedation Multi-Ingred Cream/Lotion/Oil/Oint 1 applic 01/12/19 23:54 Artificial Tears Ophth Oint OU Q4HR PRN Dry Eye(s) Ondansetron HCl 4 mg 01/13/19 04:55 Zofran IV Q8H PRN Nausea And Vomiting Sodium Chloride 10 ml 01/13/19 10:00 01/14/19 10:00 Sodium Chloride Flush Syringe 10 Ml IV 10 ml BID JOAN Administration Sodium Chloride 10 ml 01/13/19 04:55 Sodium Chloride Flush Syringe 10 Ml IV PRN PRN LINE FLUSH Nutrition/Malnutrition Assess - Dietary Evaluation Nutrition/Malnutrition Findings: Nutrition Notes Start: 01/13/19 12:10 Freq: Status: Active Protocol: Document 01/13/19 12:10 LP (Rec: 01/13/19 12:18 LP [id number]) Nutrition Notes Need for Assessment generated from: MD Order Initial or Follow up Assessment Current Diagnosis Respiratory Failure Other Pertinent Diagnosis Cerbral palsy, Seizure, fecal impaction, dehydration Current Diet NPO Labs/Tests BUN 29 BG 175 Pertinent Medications NS at 75ml/hr Height 5 ft 2 in Weight 37.195 kg [place] Body Weight (kg) 50.00 BMI 15.0 Subjective/Other Information Consult for evaluate nutritional intake. Pt on vent in the ED. Burn Absent Trauma Absent GI Symptoms Constipation Minimum of two criteria No #1 Nutrition Diagnosis Inadequate oral intake Etiology vent As Evidenced by Signs and Symptoms Pt unable to consume PO and unable to obtain nutrition hx Is patient on ventilator? Yes Is Patient Ambulatory and/or Out of Bed No REE-([facility]-confined to bed) 1032.324 Kcal/Kg value to use for calculation 42 Approximate Energy Requirements Using 1562 kcal/Kg Calculation Used for Recommendations Kcal/kg Additional Notes Protein needs are 44-74g (1.2- 2g/kg) Fluid needs are 1ml/kcal Nutrition Intervention Change Diet Order: TF consult or diet advancement Nutrition Support: Once consulted Promote at 60ml /hr Water flush 60ml q6h Kcal 1,440 Protein (gm) 90 Fluid (mL) 1,208 Goal #1 TF consult or extubation Anticipated Discharge Needs: Unable to determine at this time Follow-Up By: 01/15/19 Additional Comments Follow for TF consult or extubation/intakes
--- NOTE | 2019-01-14 12:43 | Progress Note ---
Assessment and Plan Acute Hypoxemic and Hypercapnic Respiratory failure requiring intubation( possible from fecal impaction/mechanical causes) Anemia (Normocytic) Acute Encephalopathy Moderate-Severe protein calorie malnutrition Cerebral palsy Fecal impaction - VAP bundle addressed -Bowel regimen- tap water enema, magnesium citrate- yet to have a good bowel movement -Agitation management -Feeding tube for oral medications, enteric nutrition- tube feedings, trickle -Daily SAT and SBT- assess for readiness for weaning - VAP bundle addressed (Aspiration precautions, HOB > 40 degrees) - Lung protective strategies - Wean FIO2 for O2 sats >90% - Bronchodilators with pulmonary hygiene per RT - CXR's & ABG in the am -Serial KUBs -Pain management per CPOT - follow clinically off AB's - VTE prophylaxis - Stress ulcer prophylaxis - Acuchecks with glycemic control for SSI (While critically ill target blood glucose of 140-180 mg/dL; avoid hypoglycemia) - Mobility protocol for pressure ulcer prevention - Monitor hemodynamics closely - Monitor electrolyte profile closely and replete as indicated - Continue chronic home medications per attending and as clinically indicated - continue other care per attending / other consultants Discussed with RT and RN Discussed with the sister at the bedside. CONDITION: CRITICAL PROGNOSIS: GUARDED CODE STATUS: FULL CODE The high probability of a clinically significant, sudden or life-threatening deterioration of the [cardiac, respiratory, gastrointestinal & neurologic] system(s) required my full and direct attention, intervention and personal management. The aggregate critical care time was [35] minutes without overlap. Time includes spent on; [x] Data Review and interpretation [x] Patient assessment and monitoring of vital signs [x] Documentation [x] Medication orders and management Subjective Date of service: 01/14/19 Interval history: Patient is seen today for: Acute Hypoxemic and Hypercapnic Respiratory failure; Anemia; Acute Encephalopathy; Cerebral palsy; Fecal impaction Seen and examined at bedside; 24hour events reviewed; nursing and respiratory care staff consulted; no adverse overnight events reported to me; resting in bed; remains on MVS; no patietn-ventilator dysnchrony ; AMS is persistent; oral secretions; No N/V/F/ reported. Had loose stools- sounds like overflow diarrhea Vitals, labs, medications, chart reviewed Objective Vital Signs - 12hr 01/14/19 01/14/19 01/14/19 04:00 04:30 07:51 Temperature 98.7 F 99.5 F Pulse Rate 87 Blood Pressure 92/53 O2 Sat by Pulse 100 Oximetry 01/14/19 01/14/19 01/14/19 08:53 09:00 10:00 Temperature Pulse Rate 88 83 Blood Pressure 101/58 O2 Sat by Pulse 100 100 Oximetry CBC and BMP: 01/14/19 05:13 01/14/19 05:13 ABG, PT/INR, D-dimer: ABG POC ABG pH 7.416 (7.35-7.45) 01/14/19 06:06 POC ABG pCO2 36.6 (35-45) 01/14/19 06:06 POC ABG pO2 121 (80-105) H 01/14/19 06:06 POC ABG HCO3 23.5 (22-26 mml/L) 01/14/19 06:06 POC ABG Total CO2 25 (23-27mmol/L) 01/14/19 06:06 POC ABG O2 Sat 99 01/14/19 06:06 PT/INR, D-dimer PT 14.2 Sec. (12.2-14.9) 01/14/19 05:13 INR 1.11 (0.87-1.13) 01/14/19 05:13 D-Dimer 135.00 ng/mlDDU (0-234) 01/13/19 00:27 Abnormal lab findings: Abnormal Labs 01/13/19 01/13/19 01/13/19 00:27 00:27 00:27 RBC 3.36 L Hgb Hct Lymph % (Auto) 4.2 L [place] % (Auto) Lymph # 0.3 L Seg Neutrophils % 89.1 H APTT POC ABG pH POC ABG pCO2 POC ABG pO2 VBG pH 7.178 L* Chloride 109.1 H Carbon Dioxide 20 L BUN 29 H Creatinine Glucose 175 H Lactic Acid Calcium 7.8 L CK-MB (CK-2) 7.7 H CK-MB (CK-2) Rel Index 7.2 H Total Protein 6.0 L Albumin 3.3 L Ur Specific [place] 01/13/19 01/13/19 01/13/19 00:27 02:14 02:22 RBC Hgb Hct Lymph % (Auto) [place] % (Auto) Lymph # Seg Neutrophils % APTT POC ABG pH 7.276 L POC ABG pCO2 49.4 H POC ABG pO2 156 H VBG pH Chloride Carbon Dioxide BUN Creatinine Glucose Lactic Acid 2.90 H* 0.30 L Calcium CK-MB (CK-2) CK-MB (CK-2) Rel Index Total Protein Albumin Ur Specific [place] 01/13/19 01/13/19 01/14/19 02:22 02:34 05:13 RBC 2.96 L Hgb 9.3 L Hct 27.4 L Lymph % (Auto) [place] % (Auto) 11.9 H Lymph # Seg Neutrophils % APTT 39.4 H POC ABG pH POC ABG pCO2 POC ABG pO2 VBG pH Chloride Carbon Dioxide BUN Creatinine Glucose Lactic Acid Calcium CK-MB (CK-2) CK-MB (CK-2) Rel Index Total Protein Albumin Ur Specific [place] 1.051 H 01/14/19 01/14/19 05:13 06:06 RBC Hgb Hct Lymph % (Auto) [place] % (Auto) Lymph # Seg Neutrophils % APTT POC ABG pH POC ABG pCO2 POC ABG pO2 121 H VBG pH Chloride Carbon Dioxide 21 L BUN 22 H Creatinine 0.6 L Glucose 62 L Lactic Acid Calcium 8.0 L CK-MB (CK-2) CK-MB (CK-2) Rel Index Total Protein Albumin Ur Specific [place]
--- NOTE | 2019-01-14 13:58 | Gastroenterology Consultation ---
History of Present Illness - Reason for Consult Consult date: 01/14/19 Constipation Requesting physician: GREGORIO CHEN - History of Present Illness The patient james 68 yo aaf with h/o cerebral palsy who presented with respiratory failure; pt currently intubated and in the ICU. History gathered from chart review and pt's sister at bedside. Pt with chronic constipation, on daily bowel regimen, and can go up to 2 weeks b/w bm's. she had a large bm prior to arri victor manuel. imaging in ED showed severe constipation with fecal impaction in proximal rectum. She has been receiving enemas since admission. No bm today so far. Past History Past Medical History: other (Cerebral palsy, history of chronic constipation.) Past Surgical History: Other (History of PEG tube placement in the past) Social history: no significant social history Family history: no significant family history Medications and Allergies Allergies Allergy/AdvReac Type Severity Reaction Status Date / Time No Known Allergies Allergy Unverified 12/07/13 17:18 Home Medications Medication Instructions Recorded Confirmed Last Taken Type LORazepam 1 mg PO TID 01/13/19 01/13/19 Unknown History Quetiapine Fumarate [SEROquel] 600 mg PO DAILY 01/13/19 01/13/19 Unknown History traZODone [Desyrel] 100 mg PO DAILY 01/13/19 01/13/19 Unknown History Haldol 5 mg PO PCHS 01/14/19 01/14/19 Unknown History Active Meds: Active Medications Acetaminophen (Tylenol) 650 mg VA Q6H PRN PRN Reason: Pain MILD(1-3)/Fever >100.5/WOOD Bisacodyl (Dulcolax) 10 mg VA QDAY PRN PRN Reason: constipation unrelieved by MOM Fentanyl (Sublimaze) 50 mcg IV Q10MIN PRN PRN Reason: ANALGESIA Last Admin: 01/13/19 01:05 Dose: 50 mcg Documented by: Heparin Sodium (Porcine) (Heparin) 5,000 unit SUB-Q Q8HR JOAN Last Admin: 01/14/19 06:54 Dose: 5,000 unit Documented by: Hydrophilic Ointment (Vaseline Lip Therapy) 1 applic TP Q2HR PRN PRN Reason: Dry Lips Midazolam HCl 100 mg/ Sodium (Chloride) 100 mls @ 2 mls/hr IV TITR JOAN; Protocol Last Admin: 01/13/19 22:24 Dose: 4 mg/hr, 4 mls/hr Documented by: Fentanyl Citrate (Fentanyl Drip Premix) 2,000 mcg in 100 mls @ 1.86 mls/hr IV TITR JOAN; Protocol Last Admin: 01/14/19 11:03 Dose: 3 mcg/kg/hr, 5.579 mls/hr Documented by: Sodium Chloride (Nacl 0.9% 1000 Ml) 1,000 mls @ 75 mls/hr IV DIRECT JOAN Last Admin: 01/14/19 06:55 Dose: 75 mls/hr Documented by: Midazolam HCl (Versed) 2 mg IV Q10MIN PRN PRN Reason: Sedation Multi-Ingred Cream/Lotion/Oil/Oint (Artificial Tears Ophth Oint) 1 applic OU Q4HR PRN PRN Reason: Dry Eye(s) Ondansetron HCl (Zofran) 4 mg IV Q8H PRN PRN Reason: Nausea And Vomiting Sodium Chloride (Sodium Chloride Flush Syringe 10 Ml) 10 ml IV BID [facility] Last Admin: 01/14/19 10:00 Dose: 10 ml Documented by: Sodium Chloride (Sodium Chloride Flush Syringe 10 Ml) 10 ml IV PRN PRN PRN Reason: LINE FLUSH Reviewed/updated patient's home and current medications Review of Systems - Review of Systems ROS unobtainable: due to endotracheal tube, due to mental status Exam - Exam Narrative Exam: Gen: intubated Head: nc/at Eyes: anicteric Mouth: intubated, dry mm CV: RRR Lungs: CTAB Abd: mod dist, hypoactive bs, nt - Constitutional Vital Signs: Temp Pulse Resp BP Pulse Ox 99.1 F 91 H 14 101/51 100 01/14/19 12:00 01/14/19 12:43 01/13/19 18:13 01/14/19 12:43 01/14/19 12:43 - Labs CBC & Chem 7: 01/14/19 05:13 01/14/19 05:13 Lab Results: Laboratory Results - last 24 hr 01/14/19 01/14/19 01/14/19 05:13 05:13 05:13 WBC 6.1 RBC 2.96 L Hgb 9.3 L Hct 27.4 L MCV 93 MCH 31 MCHC 34 RDW 14.3 Plt Count 155 Lymph % (Auto) 22.2 [place] % (Auto) 11.9 H Eos % (Auto) 0.9 Baso % (Auto) 0.4 Lymph # 1.4 [place] # 0.7 Eos # 0.1 Baso # 0.0 Seg Neutrophils % 64.6 Seg Neutrophils # 3.9 PT 14.2 INR 1.11 APTT 31.9 POC ABG pH POC ABG pCO2 POC ABG pO2 POC ABG HCO3 POC ABG Total CO2 POC ABG O2 Sat POC ABG Base Excess FiO2 Sodium 140 Potassium 4.0 Chloride 107.0 Carbon Dioxide 21 L Anion Gap 16 BUN 22 H Creatinine 0.6 L Estimated GFR > 60 BUN/Creatinine Ratio 37 Glucose 62 L Calcium 8.0 L 01/14/19 06:06 WBC RBC Hgb Hct MCV MCH MCHC RDW Plt Count Lymph % (Auto) [place] % (Auto) Eos % (Auto) Baso % (Auto) Lymph # [place] # Eos # Baso # Seg Neutrophils % Seg Neutrophils # PT INR APTT POC ABG pH 7.416 POC ABG pCO2 36.6 POC ABG pO2 121 H POC ABG HCO3 23.5 POC ABG Total CO2 25 POC ABG O2 Sat 99 POC ABG Base Excess -1 FiO2 30 Sodium Potassium Chloride Carbon Dioxide Anion Gap BUN Creatinine Estimated GFR BUN/Creatinine Ratio Glucose Calcium - Imaging X-ray: report reviewed CT Scan: report reviewed Assessment and Plan 1. Fecal impaction/constipation 2. Respiratory failure 3. Cerebral palsy -will monitor response with current enema administration. if inadequate response, then may need gastrograffin enema. repeat KUB tomorrow
--- NOTE | 2019-01-15 03:09 | XRay Report ---
CHEST 1 VIEW INDICATION: follow up respiratory failure. COMPARISON: 01/14/2019. FINDINGS: Support devices: NG tube in satisfactory position. Heart: Within normal limits. Lungs/Pleura: Mild basilar atelectasis. Additional findings: None. IMPRESSION: Mild basilar atelectasis. Signer Name: Dread Mullen MD Signed: 01/15/2019 3:05 AM Workstation Name: [id number]
[2019-01-15] MEDS: MIDAZOLAM 100 MG in SODIUM CHLORIDE 0.9% 80 ML IV SCH (04:15)
[2019-01-15] MEDS: HEPARIN 5,000 UNIT/1 ML VIAL SUB-Q SCH ×3 (06:24→22:09)
[2019-01-15] MEDS: LORazepam 1 MG TAB PO SCH ×2 (08:00→16:00)
[2019-01-15] MEDS ORDERED: DEXTROSE 50% IN WATER (25GM) 50 ML SYRINGE IV PRN (08:51)
[2019-01-15] MEDS ORDERED: DEXTROSE 50% IN WATER (25GM) 50 ML SYRINGE IV ONE (08:56)
--- NOTE | 2019-01-15 09:16 | Progress Note ---
Assessment and Plan Acute Hypoxemic and Hypercapnic Respiratory failure requiring intubation Anemia (Normocytic) Acute Encephalopathy Cerebral palsy Fecal impaction - begin D5NS @ 75 ml's/hr X 3 liters then reassess - reduce set rate to 12/min - continue daily SAT's and SBT assessment as tolerated now - schedule lactulose for constipation - Magnesium citrate 150 ml's X 1 now - VAP bundle addressed (Aspiration precautions, HOB > 40 degrees) - continue Lung protective strategies - continue to wean FIO2 for O2 sats >90% - continue bronchodilators with pulmonary hygiene per RT - continue daily CXR's & ABG's acutely - begin enteral nutrition and advance to goal rate as tolerated (hold for tentative extubation) - continue agitation management / Pain management per CPOT - follow clinically off AB's - continue VTE prophylaxis - continue stress ulcer prophylaxis - continue accuchecks with glycemic control for SSI (While critically ill target blood glucose of 140-180 mg/dL; avoid hypoglycemia) - Continue mobility protocol for pressure ulcer prevention - Continue to monitor hemodynamics closely - Monitor electrolyte profile closely and replete as indicated - continue chronic home medications per attending and as clinically indicated - continue other care per attending / other consultants CONDITION: CRITICAL PROGNOSIS: GUARDED-POOR CODE STATUS: FULL CODE The high probability of a clinically significant, sudden or life-threatening deterioration of the [cardiac, respiratory & neurologic] system(s) required my full and direct attention, intervention and personal management. The aggregate critical care time was [32] minutes without overlap. Time includes spent on; [x] Data Review and interpretation [x] Patient assessment and monitoring of vital signs [x] Documentation [x] Medication orders and management Subjective Date of service: 01/15/19 Principal diagnosis: Ac Hypoxemic and Hypercapnic Resp failure; Anemia; Cerebral palsy Interval history: Patient is seen today for: Acute Hypoxemic and Hypercapnic Respiratory failure; Anemia; Acute Encephalopathy; Cerebral palsy; Fecal impaction Seen and examined at bedside; 24hour events reviewed; nursing and respiratory care staff consulted; no adverse overnight events reported to me; resting in bed; remains on MVS; secretions moderate; not following commands and remains encephalopathic; still with constipation Objective Vital Signs - 12hr 01/14/19 01/14/19 01/15/19 21:55 22:00 00:00 Temperature 99.3 F Pulse Rate 94 H 77 75 Pulse Rate [ From Monitor] Blood Pressure 117/73 120/71 O2 Sat by Pulse 100 100 Oximetry 01/15/19 01/15/19 01/15/19 01:00 04:00 04:13 Temperature 98.9 F Pulse Rate 66 Pulse Rate [ 76 From Monitor] Blood Pressure 127/67 O2 Sat by Pulse 100 100 Oximetry 01/15/19 01/15/19 01/15/19 05:00 07:57 08:00 Temperature 98.3 F Pulse Rate 63 Pulse Rate [ 77 From Monitor] Blood Pressure 109/65 O2 Sat by Pulse 100 100 Oximetry Constitutional: appears uncomfortable, other (elderly looking thin AAF with cerebral palsy fascies on MVS with mildly increased resp effort) Eyes: non-icteric ENT: oropharynx moist, other (ETT 23 cm SHERMAN) Neck: supple, no lymphadenopathy, no JVD Effort: mildly labored Ascultation: Bilateral: rales Percussion: Bilateral: not dull Cardiovascular: regular rate and rhythm Gastrointestinal: normoactive bowel sounds, hypoactive bowel sounds, soft, non- tender, non-distended Integumentary: rash Extremities: no cyanosis, pulses normal, no ischemia or petechiae Neurologic: pupils equal and round, unable to assess Psychiatric: other (unable to assess re: AMS) CBC and BMP: 01/14/19 05:13 01/14/19 05:13 ABG, PT/INR, D-dimer: ABG POC ABG pH 7.397 (7.35-7.45) 01/15/19 04:31 POC ABG pCO2 33.7 (35-45) L 01/15/19 04:31 POC ABG pO2 114 (80-105) H 01/15/19 04:31 POC ABG HCO3 20.7 (22-26 mml/L) 01/15/19 04:31 POC ABG Total CO2 22 (23-27mmol/L) 01/15/19 04:31 POC ABG O2 Sat 99 01/15/19 04:31 PT/INR, D-dimer PT 14.2 Sec. (12.2-14.9) 01/14/19 05:13 INR 1.11 (0.87-1.13) 01/14/19 05:13 D-Dimer 135.00 ng/mlDDU (0-234) 01/13/19 00:27 Abnormal lab findings: Abnormal Labs 01/13/19 01/13/19 01/13/19 00:27 00:27 00:27 RBC 3.36 L Hgb Hct Lymph % (Auto) 4.2 L [place] % (Auto) Lymph # 0.3 L Seg Neutrophils % 89.1 H APTT POC ABG pH POC ABG pCO2 POC ABG pO2 VBG pH 7.178 L* Chloride 109.1 H Carbon Dioxide 20 L BUN 29 H Creatinine Glucose 175 H POC Glucose Lactic Acid Calcium 7.8 L CK-MB (CK-2) 7.7 H CK-MB (CK-2) Rel Index 7.2 H Total Protein 6.0 L Albumin 3.3 L Ur Specific [place] 01/13/19 01/13/19 01/13/19 00:27 02:14 02:22 RBC Hgb Hct Lymph % (Auto) [place] % (Auto) Lymph # Seg Neutrophils % APTT POC ABG pH 7.276 L POC ABG pCO2 49.4 H POC ABG pO2 156 H VBG pH Chloride Carbon Dioxide BUN Creatinine Glucose POC Glucose Lactic Acid 2.90 H* 0.30 L Calcium CK-MB (CK-2) CK-MB (CK-2) Rel Index Total Protein Albumin Ur Specific [place] 01/13/19 01/13/19 01/14/19 02:22 02:34 05:13 RBC 2.96 L Hgb 9.3 L Hct 27.4 L Lymph % (Auto) [place] % (Auto) 11.9 H Lymph # Seg Neutrophils % APTT 39.4 H POC ABG pH POC ABG pCO2 POC ABG pO2 VBG pH Chloride Carbon Dioxide BUN Creatinine Glucose POC Glucose Lactic Acid Calcium CK-MB (CK-2) CK-MB (CK-2) Rel Index Total Protein Albumin Ur Specific [place] 1.051 H 01/14/19 01/14/19 01/15/19 05:13 06:06 04:31 RBC Hgb Hct Lymph % (Auto) [place] % (Auto) Lymph # Seg Neutrophils % APTT POC ABG pH POC ABG pCO2 33.7 L POC ABG pO2 121 H 114 H VBG pH Chloride Carbon Dioxide 21 L BUN 22 H Creatinine 0.6 L Glucose 62 L POC Glucose Lactic Acid Calcium 8.0 L CK-MB (CK-2) CK-MB (CK-2) Rel Index Total Protein Albumin Ur Specific [place] 01/15/19 08:51 RBC Hgb Hct Lymph % (Auto) [place] % (Auto) Lymph # Seg Neutrophils % APTT POC ABG pH POC ABG pCO2 POC ABG pO2 VBG pH Chloride Carbon Dioxide BUN Creatinine Glucose POC Glucose < 40 L Lactic Acid Calcium CK-MB (CK-2) CK-MB (CK-2) Rel Index Total Protein Albumin Ur Specific [place] Chest x-ray: image reviewed (RLL platelike atelectasis; ETT in good position) Allied health notes reviewed: nursing
[2019-01-15] MEDS: QUEtiapine 200 MG TAB PO SCH (10:00)
[2019-01-15] MEDS: FAMOTIDINE 20 MG/2 ML INJ IV SCH ×2 (10:00→22:08)
[2019-01-15] MEDS: traZODone 100 MG TAB PO SCH (10:00)
[2019-01-15] MEDS: SODIUM CHLORIDE 0.9% 1000 ML 1,000 ML IV SCH (10:05)
[2019-01-15] MEDS: fentaNYL DRIP Premix 2,000 MCG/100 ML BAG IV SCH (10:06)
[2019-01-15] MEDS: D5W/0.9% NACL 1,000 ML IV SCH (13:00)
--- NOTE | 2019-01-15 13:41 | Gastroenterology Progress Note ---
<BETZAIDA HARTMAN - Last Filed: 01/15/19 13:43> Assessment and Plan 1. Fecal impaction/constipation 2. Respiratory failure 3. Cerebral palsy -large BM x 1 this am with current enema administration -KUB pending for today -gastrograffin enema pending on KUB results Subjective Date of service: 01/15/19 Principal diagnosis: fecal impaction Interval history: Remains in ICU on vent. Large BM x 1 this am per nursing. Objective - Constitutional Vitals: Temp Pulse Resp BP Pulse Ox 98.3 F 65 14 110/68 100 01/15/19 08:00 01/15/19 13:04 01/13/19 18:13 01/15/19 13:04 01/15/19 13:04 General appearance: other (in ICU on vent) - Respiratory Respiratory: bilateral: diminished - Cardiovascular Rhythm: regular - Gastrointestinal General gastrointestinal: Present: non-tender, distended, hypoactive bowel sounds - Integumentary Integumentary: Present: warm, dry - Neurologic Neurological: other (alert) - Labs CBC & Chem 7: 01/14/19 05:13 01/14/19 05:13 Labs: Laboratory Results - last 24 hr 01/15/19 01/15/19 01/15/19 04:21 04:31 08:51 POC ABG pH 7.397 POC ABG pCO2 33.7 L POC ABG pO2 114 H POC ABG HCO3 20.7 POC ABG Total CO2 22 POC ABG O2 Sat 99 POC ABG Base Excess -4 FiO2 25 POC Glucose 76 < 40 L 01/15/19 10:07 POC ABG pH POC ABG pCO2 POC ABG pO2 POC ABG HCO3 POC ABG Total CO2 POC ABG O2 Sat POC ABG Base Excess FiO2 POC Glucose 158 H <ROBERTO AVILES - Last Filed: 01/15/19 20:00> Assessment and Plan Pt seen and examined. Agree with note above. Objective - Constitutional Vitals: Temp Pulse Resp BP Pulse Ox 97.5 F L 81 14 101/68 100 01/15/19 16:00 01/15/19 17:00 01/13/19 18:13 01/15/19 16:59 01/15/19 17:00 - Labs CBC & Chem 7: 01/14/19 05:13 01/14/19 05:13 Labs: Laboratory Results - last 24 hr 01/15/19 01/15/19 01/15/19 04:21 04:31 08:51 POC ABG pH 7.397 POC ABG pCO2 33.7 L POC ABG pO2 114 H POC ABG HCO3 20.7 POC ABG Total CO2 22 POC ABG O2 Sat 99 POC ABG Base Excess -4 FiO2 25 POC Glucose 76 < 40 L 01/15/19 10:07 POC ABG pH POC ABG pCO2 POC ABG pO2 POC ABG HCO3 POC ABG Total CO2 POC ABG O2 Sat POC ABG Base Excess FiO2 POC Glucose 158 H
--- NOTE | 2019-01-15 13:44 | XRay Report ---
ABDOMEN 2 VIEW(S) INDICATION / CLINICAL INFORMATION: abdominal distention. COMPARISON: KUB from 01/13/2019 FINDINGS: TUBES / LINES: NG tube tip is in the mid stomach. BOWEL GAS PATTERN: Large colonic stool burden again noted. FREE AIR / EXTRALUMINAL GAS: None seen. ADDITIONAL FINDINGS: No significant additional findings. IMPRESSION: 1. Findings of fecal impaction/severe constipation again noted. Signer Name: Karl Roque MD Signed: 01/15/2019 1:40 PM Workstation Name: [id number]
[2019-01-15] MEDS: LACTULOSE 20 GM/30 ML ORAL LIQD PO SCH ×2 (14:00→22:10)
[2019-01-15] MEDS ORDERED: MAGNESIUM CITRATE 300 ML ORAL LIQD PO ONE (14:00)
[2019-01-15] MEDS: SCOPOLAMINE TRANSDERMAL PATCH 72 HR TD SCH (14:00)
[2019-01-15] MEDS: HALOPERIDOL 5 MG TAB PO SCH (22:10)
--- NOTE | 2019-01-16 02:44 | XRay Report ---
CHEST 1 VIEW INDICATION: follow up respiratory failure. COMPARISON: Previous day. FINDINGS: Support devices: Endotracheal tube and NG tube remain in satisfactory position. Heart: Within normal limits. Lungs/Pleura: Mild decrease in lung volumes. No significant infiltrate. Additional findings: Prominent constipation imaged upper abdomen. IMPRESSION: 1. Diminished lung volumes. 2. Prominent constipation. Signer Name: Dread Mullen MD Signed: 01/16/2019 2:39 AM Workstation Name: [id number]
[2019-01-16] MEDS: D5W/0.9% NACL 1,000 ML IV SCH ×2 (02:59→17:21)
[2019-01-16] MEDS: LACTULOSE 20 GM/30 ML ORAL LIQD PO SCH ×3 (06:02→21:44)
[2019-01-16] MEDS: LORazepam 1 MG TAB PO SCH ×3 (06:02→16:00)
--- NOTE | 2019-01-16 08:27 | Progress Note ---
Assessment and Plan Respiratory failure requiring intubation Cont vent weaning per protocols. Pulm following Cerebral palsy Patient has known history of cerebral palsy. Fecal impaction -large BM x 1 this am with current enema administration -KUB pending for today -gastrograffin enema pending on KUB results DVT prophylaxis On Heparin SQ The high probability of a clinically significant, sudden or life threatening deterioration of the [respiratory neurological] system(s) required my full and direct attention, intervention and personal management. The aggregate critical care time was [31] minutes. This time is in addition to time spent performing re ported procedures but includes the following: [x] Data Review and interpretation [x] Patient assessment and monitoring of vital signs [x] Documentation [x] Medication orders and management Subjective Date of service: 01/15/19 Principal diagnosis: Ac Hypoxemic and Hypercapnic Resp failure; Anemia; Cerebral palsy Interval history: 68-year-old female with known history of cerebral palsy was brought into the emergency room in respiratory distress. She is also known to have history of chronic constipation. She has been noticed to have increasing swelling of abdomen over the past few days. Upon arrival in the emergency room she was found to be constipated. She had a large bowel movement upon arrival. However because of her respiratory distress she was subsequently intubated. Her work-up however including CT of the abdomen shows fecal impaction. There has been no history of nausea vomiting. No fever or chills. Large BM this am. Objective - Constitutional Vitals: Vital Signs - 12hr 01/15/19 01/15/19 01/16/19 20:51 22:00 00:00 Temperature 97.5 F L Pulse Rate 79 76 Pulse Rate [ 72 From Monitor] Blood Pressure 119/77 O2 Sat by Pulse 100 100 Oximetry 01/16/19 01/16/19 01/16/19 01:30 03:54 04:12 Temperature 98.3 F Pulse Rate 78 85 Pulse Rate [ From Monitor] Blood Pressure 142/87 143/92 O2 Sat by Pulse 100 100 Oximetry 01/16/19 05:00 Temperature Pulse Rate Pulse Rate [ 76 From Monitor] Blood Pressure O2 Sat by Pulse 100 Oximetry General appearance: Present: no acute distress, well-nourished - EENT Eyes: PERRL, EOM intact ENT: hearing intact, clear oral mucosa Ears: bilateral: normal - Neck Neck: supple, normal ROM - Respiratory Respiratory effort: normal Respiratory: bilateral: CTA - Breasts Breasts: normal - Cardiovascular Heart rate: 78 Rhythm: regular Heart Sounds: Present: S1 & S2. Absent: gallop, rub Extremities: pulses intact, No edema, normal color, Full ROM - Gastrointestinal General gastrointestinal: Present: soft, non-tender, non-distended, normal bowel sounds - Genitourinary Female genitourinary: normal - Integumentary Integumentary: clear, warm, dry - Musculoskeletal Musculoskeletal: generalized weakness - Allied health notes Allied health notes reviewed: nursing, case management - Labs CBC & Chem 7: 01/14/19 05:13 01/14/19 05:13 Labs: Abnormal lab results 01/15/19 01/15/19 01/16/19 Range/Units 08:51 10:07 02:56 POC Glucose < 40 L 158 H 142 H (70-105)
--- NOTE | 2019-01-16 08:43 | Progress Note ---
Assessment and Plan Respiratory failure requiring intubation Cont vent weaning per protocols. Pulm following Cerebral palsy Patient has known history of cerebral palsy. Fecal impaction -large BM x 1 Yesterday. On lactulose -KUB pending -gastrograffin enema pending DVT prophylaxis On Heparin SQ The high probability of a clinically significant, sudden or life threatening deterioration of the [respiratory neurological] system(s) required my full and direct attention, intervention and personal management. The aggregate critical care time was [31] minutes. This time is in addition to time spent performing reported procedures but includes the following: [x] Data Review and interpretation [x] Patient assessment and monitoring of vital signs [x] Documentation [x] Medication orders and management Subjective Date of service: 01/16/19 Principal diagnosis: Ac Hypoxemic and Hypercapnic Resp failure; Anemia; Cerebral palsy Interval history: 68-year-old female with known history of cerebral palsy was brought into the emergency room in respiratory distress. She is also known to have history of chronic constipation. She has been noticed to have increasing swelling of abdomen over the past few days. Upon arrival in the emergency room she was found to be constipated. She had a large bowel movement upon arrival. However because of her respiratory distress she was subsequently intubated. Her work-up however including CT of the abdomen shows fecal impaction. There has been no history of nausea vomiting. No fever or chills. Large BM yesterday. KUB showing Fecal impaction Objective - Constitutional Vitals: Vital Signs - 12hr 01/15/19 01/15/19 01/16/19 20:51 22:00 00:00 Temperature 97.5 F L Pulse Rate 79 76 Pulse Rate [ 72 From Monitor] Blood Pressure 119/77 O2 Sat by Pulse 100 100 Oximetry 01/16/19 01/16/19 01/16/19 01:30 03:54 04:12 Temperature 98.3 F Pulse Rate 78 85 Pulse Rate [ From Monitor] Blood Pressure 142/87 143/92 O2 Sat by Pulse 100 100 Oximetry 01/16/19 05:00 Temperature Pulse Rate Pulse Rate [ 76 From Monitor] Blood Pressure O2 Sat by Pulse 100 Oximetry General appearance: Present: no acute distress, well-nourished - EENT Eyes: PERRL, EOM intact ENT: hearing intact, clear oral mucosa Ears: bilateral: normal - Neck Neck: supple, normal ROM - Respiratory Respiratory effort: normal Respiratory: bilateral: CTA - Breasts Breasts: normal - Cardiovascular Rhythm: regular Heart Sounds: Present: S1 & S2. Absent: gallop, rub Extremities: pulses intact, No edema, normal color, Full ROM - Gastrointestinal General gastrointestinal: Present: soft, non-tender, non-distended, normal bowel sounds - Genitourinary Female genitourinary: normal - Integumentary Integumentary: clear, warm, dry - Musculoskeletal Musculoskeletal: 1, strength equal bilaterally - Neurologic Neurologic: moves all extremities - Psychiatric Psychiatric: memory intact, appropriate mood/affect, intact judgment & insight - Labs CBC & Chem 7: 01/14/19 05:13 01/14/19 05:13 Labs: Abnormal lab results 01/15/19 01/15/19 01/16/19 Range/Units 08:51 10:07 02:56 POC Glucose < 40 L 158 H 142 H (70-105)
[2019-01-16] MEDS: traZODone 100 MG TAB PO SCH (09:01)
[2019-01-16] MEDS: QUEtiapine 200 MG TAB PO SCH (09:02)
[2019-01-16] MEDS: HEPARIN 5,000 UNIT/1 ML VIAL SUB-Q SCH ×2 (09:03→21:45)
[2019-01-16] MEDS: FAMOTIDINE 20 MG/2 ML INJ IV SCH ×2 (09:04→21:45)
--- NOTE | 2019-01-16 11:29 | Gastroenterology Progress Note ---
<BETZAIDA HARTMAN - Last Filed: 01/16/19 11:32> Assessment and Plan 1. Fecal impaction/constipation 2. Respiratory failure 3. Cerebral palsy -small BM x 1 this am -repeat KUB yesterday showed continue fecal impaction/severe constipation -will order gastrograffin enema for today Subjective Date of service: 01/16/19 Principal diagnosis: fecal impaction Interval history: No acute distress. Small BM this am. Objective - Constitutional Vitals: Temp Pulse Resp BP Pulse Ox 98.6 F 79 12 148/91 100 01/16/19 08:00 01/16/19 08:45 01/16/19 08:45 01/16/19 08:45 01/16/19 08:45 General appearance: no acute distress, other (in ICU on vent) - Respiratory Respiratory: bilateral: CTA (anterior) - Cardiovascular Rhythm: regular - Gastrointestinal General gastrointestinal: Present: non-tender, distended, hypoactive bowel sounds - Labs CBC & Chem 7: 01/14/19 05:13 01/14/19 05:13 Labs: Laboratory Results - last 24 hr 01/16/19 01/16/19 02:56 04:29 POC ABG pH 7.404 POC ABG pCO2 35.7 POC ABG pO2 103 POC ABG HCO3 22.3 POC ABG Total CO2 23 POC ABG O2 Sat 98 POC ABG Base Excess -2 FiO2 25 POC Glucose 142 H <ROBERTO AVILES - Last Filed: 01/16/19 19:02> Assessment and Plan Patient seen and examined; agree with note above. okay for tube feeds from gi stand point. GGE when able to per radiology Objective - Constitutional Vitals: Temp Pulse Resp BP Pulse Ox 98.4 F 92 H 12 154/105 100 01/16/19 16:00 01/16/19 17:45 01/16/19 17:45 01/16/19 17:45 01/16/19 17:45 - Labs CBC & Chem 7: 01/14/19 05:13 01/14/19 05:13 Labs: Laboratory Results - last 24 hr 01/16/19 01/16/19 02:56 04:29 POC ABG pH 7.404 POC ABG pCO2 35.7 POC ABG pO2 103 POC ABG HCO3 22.3 POC ABG Total CO2 23 POC ABG O2 Sat 98 POC ABG Base Excess -2 FiO2 25 POC Glucose 142 H
[2019-01-16] MEDS ORDERED: SIMPLE SYRUP 15 ML FEEDTUBE PRN ×2 (13:32)
[2019-01-16] MEDS ORDERED: LIPASE 10,500/PROTEASE 25,000/AMYLASE 43,750 (UNITS) DR CAP FEEDTUBE PRN (13:32)
[2019-01-16] MEDS ORDERED: SODIUM BICARBONATE 325 MG TAB FEEDTUBE PRN (13:32)
--- NOTE | 2019-01-16 14:18 | Progress Note ---
Assessment and Plan Acute Hypoxemic and Hypercapnic Respiratory failure requiring intubation Anemia (Normocytic) Acute Encephalopathy Cerebral palsy Fecal impaction - get ABG after 2-4 hours on PSV 12/03 - allow to go the whole day on PSV if tolerates; rest on AC overnight and tentative extubation in am - complete D5NS @ 75 ml's/hr X 3 liters then reassess - continue set rate at 12/min - continue daily SAT's and SBT assessment as tolerated now - continue lactulose for constipation (had a large BM after Mag citrate yesterday) - VAP bundle addressed (Aspiration precautions, HOB > 40 degrees) - continue Lung protective strategies - continue to wean FIO2 for O2 sats >90% - continue bronchodilators with pulmonary hygiene per RT - continue daily CXR's & ABG's acutely - continue enteral nutrition and advance to goal rate as tolerated (hold for tentative extubation) - continue agitation management / Pain management per CPOT - follow clinically off AB's - continue VTE prophylaxis - continue stress ulcer prophylaxis - continue accuchecks with glycemic control for SSI (While critically ill target blood glucose of 140-180 mg/dL; avoid hypoglycemia) - Continue mobility protocol for pressure ulcer prevention - Continue to monitor hemodynamics closely - Monitor electrolyte profile closely and replete as indicated - continue chronic home medications per attending and as clinically indicated - continue other care per attending / other consultants CONDITION: CRITICAL PROGNOSIS: GUARDED-POOR CODE STATUS: FULL CODE The high probability of a clinically significant, sudden or life-threatening deterioration of the [cardiac, respiratory & neurologic] system(s) required my full and direct attention, intervention and personal management. The aggregate critical care time was [34] minutes without overlap. Time includes spent on; [x] Data Review and interpretation [x] Patient assessment and monitoring of vital signs [x] Documentation [x] Medication orders and management Subjective Date of service: 01/16/19 Principal diagnosis: Ac Hypoxemic and Hypercapnic Resp failure; Anemia; Cerebral palsy Interval history: Patient is seen today for: Acute Hypoxemic and Hypercapnic Respiratory failure; Anemia; Acute Encephalopathy; Cerebral palsy; Fecal impaction Seen and examined at bedside; 24hour events reviewed; nursing and respiratory care staff consulted; no adverse overnight events reported to me; resting in bed; remains on MVS; tolerating PSV trial better today; AMS is persistent; secretions better but persistent; No N/V/F/C Objective Vital Signs - 12hr 01/16/19 01/16/19 01/16/19 03:54 04:12 05:00 Temperature 98.3 F Pulse Rate 85 Pulse Rate [ 76 From Monitor] Respiratory Rate Blood Pressure 143/92 O2 Sat by Pulse 100 100 Oximetry 01/16/19 01/16/19 01/16/19 08:00 08:45 09:00 Temperature 98.6 F Pulse Rate 79 Pulse Rate [ 86 From Monitor] Respiratory 12 Rate Blood Pressure 148/91 O2 Sat by Pulse 100 100 Oximetry 01/16/19 01/16/19 12:00 12:37 Temperature 98.3 F Pulse Rate 86 Pulse Rate [ From Monitor] Respiratory 14 Rate Blood Pressure 146/93 O2 Sat by Pulse 100 Oximetry Constitutional: appears uncomfortable, other (elderly looking thin AAF with cerebral palsy fascies on MVS with mildly increased resp effort) Eyes: non-icteric ENT: oropharynx moist, other (ETT 23 cm SHERMAN) Neck: supple, no lymphadenopathy, no JVD Effort: mildly labored Ascultation: Bilateral: rales Percussion: Bilateral: not dull Cardiovascular: regular rate and rhythm Gastrointestinal: normoactive bowel sounds, hypoactive bowel sounds, soft, non- tender, non-distended Integumentary: rash Extremities: no cyanosis, pulses normal, no ischemia or petechiae Neurologic: pupils equal and round, unable to assess Psychiatric: other (unable to assess re: AMS) CBC and BMP: 01/14/19 05:13 01/14/19 05:13 ABG, PT/INR, D-dimer: ABG POC ABG pH 7.404 (7.35-7.45) 01/16/19 04:29 POC ABG pCO2 35.7 (35-45) 01/16/19 04:29 POC ABG pO2 103 (80-105) 01/16/19 04:29 POC ABG HCO3 22.3 (22-26 mml/L) 01/16/19 04:29 POC ABG Total CO2 23 (23-27mmol/L) 01/16/19 04:29 POC ABG O2 Sat 98 01/16/19 04:29 PT/INR, D-dimer PT 14.2 Sec. (12.2-14.9) 01/14/19 05:13 INR 1.11 (0.87-1.13) 01/14/19 05:13 D-Dimer 135.00 ng/mlDDU (0-234) 01/13/19 00:27 Abnormal lab findings: Abnormal Labs 01/13/19 01/13/19 01/13/19 00:27 00:27 00:27 RBC 3.36 L Hgb Hct Lymph % (Auto) 4.2 L [place] % (Auto) Lymph # 0.3 L Seg Neutrophils % 89.1 H APTT POC ABG pH POC ABG pCO2 POC ABG pO2 VBG pH 7.178 L* Chloride 109.1 H Carbon Dioxide 20 L BUN 29 H Creatinine Glucose 175 H POC Glucose Lactic Acid Calcium 7.8 L CK-MB (CK-2) 7.7 H CK-MB (CK-2) Rel Index 7.2 H Total Protein 6.0 L Albumin 3.3 L Ur Specific [place] 01/13/19 01/13/19 01/13/19 00:27 02:14 02:22 RBC Hgb Hct Lymph % (Auto) [place] % (Auto) Lymph # Seg Neutrophils % APTT POC ABG pH 7.276 L POC ABG pCO2 49.4 H POC ABG pO2 156 H VBG pH Chloride Carbon Dioxide BUN Creatinine Glucose POC Glucose Lactic Acid 2.90 H* 0.30 L Calcium CK-MB (CK-2) CK-MB (CK-2) Rel Index Total Protein Albumin Ur Specific [place] 01/13/19 01/13/19 01/14/19 02:22 02:34 05:13 RBC 2.96 L Hgb 9.3 L Hct 27.4 L Lymph % (Auto) [place] % (Auto) 11.9 H Lymph # Seg Neutrophils % APTT 39.4 H POC ABG pH POC ABG pCO2 POC ABG pO2 VBG pH Chloride Carbon Dioxide BUN Creatinine Glucose POC Glucose Lactic Acid Calcium CK-MB (CK-2) CK-MB (CK-2) Rel Index Total Protein Albumin Ur Specific [place] 1.051 H 01/14/19 01/14/19 01/15/19 05:13 06:06 04:31 RBC Hgb Hct Lymph % (Auto) [place] % (Auto) Lymph # Seg Neutrophils % APTT POC ABG pH POC ABG pCO2 33.7 L POC ABG pO2 121 H 114 H VBG pH Chloride Carbon Dioxide 21 L BUN 22 H Creatinine 0.6 L Glucose 62 L POC Glucose Lactic Acid Calcium 8.0 L CK-MB (CK-2) CK-MB (CK-2) Rel Index Total Protein Albumin Ur Specific [place] 01/15/19 01/15/19 01/16/19 08:51 10:07 02:56 RBC Hgb Hct Lymph % (Auto) [place] % (Auto) Lymph # Seg Neutrophils % APTT POC ABG pH POC ABG pCO2 POC ABG pO2 VBG pH Chloride Carbon Dioxide BUN Creatinine Glucose POC Glucose < 40 L 158 H 142 H Lactic Acid Calcium CK-MB (CK-2) CK-MB (CK-2) Rel Index Total Protein Albumin Ur Specific [place] Chest x-ray: image reviewed (ETT in good position) Allied health notes reviewed: nursing
[2019-01-16] MEDS: HALOPERIDOL 5 MG TAB PO SCH (21:45)
[2019-01-17] MEDS: LORazepam 1 MG TAB PO SCH ×4 (00:27→23:59)
--- NOTE | 2019-01-17 04:06 | XRay Report ---
CHEST 1 VIEW INDICATION: follow up respiratory failure. COMPARISON: Previous day. FINDINGS: Support devices: Unchanged. Heart: Within normal limits. Lungs/Pleura: No acute air space or interstitial disease. Additional findings: Persistent constipation upper abdomen. IMPRESSION: Stenosis and constipation. Signer Name: Dread Mullen MD Signed: 01/17/2019 4:01 AM Workstation Name: [email or web address]
[2019-01-17] MEDS: LACTULOSE 20 GM/30 ML ORAL LIQD PO SCH ×2 (06:00→21:01)
--- NOTE | 2019-01-17 08:56 | XRay Report ---
ABDOMEN SINGLE VIEW HISTORY: Abdominal distention. COMPARISON: 01/15/2019 FINDINGS: Lung bases are clear. A large volume of stool throughout the colon slightly less stool than on the last exam. Mild distention of proximal small bowel. No free air. The nasogastric tube tip is in the stomach. IMPRESSION: Persistent but slightly improved findings of fecal impaction/severe constipation. Signer Name: Dougie Gillespie MD Signed: 01/17/2019 8:52 AM Workstation Name: [id number]
[2019-01-17] MEDS: traZODone 100 MG TAB PO SCH (10:00)
[2019-01-17] MEDS: HEPARIN 5,000 UNIT/1 ML VIAL SUB-Q SCH ×2 (10:00→21:01)
[2019-01-17] MEDS: QUEtiapine 200 MG TAB PO SCH (10:00)
[2019-01-17] MEDS: FAMOTIDINE 20 MG TAB PO SCH ×2 (10:00→21:01)
--- NOTE | 2019-01-17 10:11 | Gastroenterology Progress Note ---
<BETZAIDA HARTMAN - Last Filed: 01/17/19 10:18> Assessment and Plan 1. Fecal impaction/constipation 2. Respiratory failure 3. Cerebral palsy -small BM x 1 this am -KUB showed slight improvement in fecal impaction/severe constipation -give colon prep today via OGT and start on daily bowel regimen with Miralax BID tomorrow -hold gastrograffin enema for now, will consider once extubated based on progress -continue supportive care -will follow Subjective Date of service: 01/17/19 Principal diagnosis: fecal impaction Interval history: Patient remains in ICU on vent. No acute distress. BM x 1 this am. Objective - Constitutional Vitals: Temp Pulse Resp BP Pulse Ox 99.4 F 100 H 18 155/90 99 01/17/19 08:00 01/17/19 08:57 01/17/19 08:57 01/17/19 08:57 01/17/19 08:57 General appearance: no acute distress, other (on vent) - Respiratory Respiratory: bilateral: diminished (anterior) - Cardiovascular Rhythm: other (tachycardia) - Gastrointestinal General gastrointestinal: Present: soft, non-tender, distended (slightly), hypoactive bowel sounds - Integumentary Integumentary: Present: warm, dry - Labs CBC & Chem 7: 01/14/19 05:13 01/14/19 05:13 Labs: Laboratory Results - last 24 hr 01/16/19 01/17/19 01/17/19 17:54 04:06 04:23 POC ABG pH 7.450 POC ABG pCO2 33.7 L POC ABG pO2 85 POC ABG HCO3 23.4 POC ABG Total CO2 24 POC ABG O2 Sat 97 POC ABG Base Excess -1 FiO2 25 POC Glucose 123 H 161 H <ROBERTO AVILES - Last Filed: 01/17/19 11:38> Assessment and Plan pt seen and examined; improvement in KUB; hold of on GGE and will give bowel regimen/prep as above. Objective - Constitutional Vitals: Temp Pulse Resp BP Pulse Ox 99.4 F 101 H 20 148/89 100 01/17/19 08:00 01/17/19 11:09 01/17/19 11:09 01/17/19 11:09 01/17/19 11:09 - Labs CBC & Chem 7: 01/14/19 05:13 01/14/19 05:13 Labs: Laboratory Results - last 24 hr 01/16/19 01/17/19 01/17/19 17:54 04:06 04:23 POC ABG pH 7.450 POC ABG pCO2 33.7 L POC ABG pO2 85 POC ABG HCO3 23.4 POC ABG Total CO2 24 POC ABG O2 Sat 97 POC ABG Base Excess -1 FiO2 25 POC Glucose 123 H 161 H
[2019-01-17] MEDS ORDERED: POLYETHYLENE GLYCOL/ELECT SOLN 4000 ML PO ONE (11:00)
--- NOTE | 2019-01-17 13:08 | Progress Note ---
Assessment and Plan Acute Hypoxemic and Hypercapnic Respiratory failure requiring intubation Anemia (Normocytic) Acute Encephalopathy Cerebral palsy Fecal impaction - add Robinul for better secretion control - taper off lactulose at this point (3 BM's today already) - Extubate after completing SBT (ABG acceptable) - complete D5NS @ 75 ml's/hr X 3 liters then reassess - continue set rate at 12/min - continue daily SAT's and SBT assessment as tolerated now - continue lactulose for constipation (had a large BM after Mag citrate yesterday) - VAP bundle addressed (Aspiration precautions, HOB > 40 degrees) - continue Lung protective strategies - continue to wean FIO2 for O2 sats >90% - continue bronchodilators with pulmonary hygiene per RT - continue daily CXR's & ABG's acutely - continue enteral nutrition and advance to goal rate as tolerated (hold for tentative extubation) - continue agitation management / Pain management per CPOT - follow clinically off AB's - continue VTE prophylaxis - continue stress ulcer prophylaxis - continue accuchecks with glycemic control for SSI (While critically ill target blood glucose of 140-180 mg/dL; avoid hypoglycemia) - Continue mobility protocol for pressure ulcer prevention - Continue to monitor hemodynamics closely - Monitor electrolyte profile closely and replete as indicated - continue chronic home medications per attending and as clinically indicated - continue other care per attending / other consultants CONDITION: CRITICAL PROGNOSIS: GUARDED-POOR CODE STATUS: FULL CODE The high probability of a clinically significant, sudden or life-threatening deterioration of the [cardiac, respiratory & neurologic] system(s) required my full and direct attention, intervention and personal management. The aggregate critical care time was [32] minutes without overlap. Time includes spent on; [x] Data Review and interpretation [x] Patient assessment and monitoring of vital signs [x] Documentation [x] Medication orders and management Subjective Date of service: 01/17/19 Principal diagnosis: Ac Hypoxemic and Hypercapnic Resp failure; Anemia; Cerebral palsy Interval history: Patient is seen today for: Acute Hypoxemic and Hypercapnic Respiratory failure; Anemia; Acute Encephalopathy; Cerebral palsy; Fecal impaction Seen and examined at bedside; 24hour events reviewed; nursing and respiratory care staff consulted; no adverse overnight events reported to me; resting in bed; remains on MVS; tolerating SBT better; secretions mild; No seizures; No emesis or overt aspiration Objective Vital Signs - 12hr 01/17/19 01/17/19 01/17/19 04:00 04:04 08:00 Temperature 98.1 F 99.4 F Pulse Rate 98 H Respiratory Rate Blood Pressure 156/97 O2 Sat by Pulse Oximetry 01/17/19 01/17/19 01/17/19 08:54 08:57 11:09 Temperature Pulse Rate 102 H 100 H 101 H Respiratory 18 20 Rate Blood Pressure 155/90 155/90 148/89 O2 Sat by Pulse 100 99 100 Oximetry 01/17/19 12:00 Temperature 98.7 F Pulse Rate Respiratory Rate Blood Pressure O2 Sat by Pulse Oximetry Constitutional: appears uncomfortable, other (elderly looking thin AAF with cerebral palsy fascies on MVS with mildly increased resp effort) Eyes: non-icteric ENT: oropharynx moist, other (ETT 23 cm SHERMAN) Neck: supple, no lymphadenopathy, no JVD Effort: mildly labored Ascultation: Bilateral: rales Percussion: Bilateral: not dull Cardiovascular: regular rate and rhythm Gastrointestinal: normoactive bowel sounds, hypoactive bowel sounds, soft, non- tender, non-distended Integumentary: rash Extremities: no cyanosis, pulses normal, no ischemia or petechiae Neurologic: pupils equal and round, unable to assess Psychiatric: mood appropriate, affect normal CBC and BMP: 01/14/19 05:13 01/14/19 05:13 ABG, PT/INR, D-dimer: ABG POC ABG pH 7.498 (7.35-7.45) H 01/17/19 11:20 POC ABG pCO2 32.1 (35-45) L 01/17/19 11:20 POC ABG pO2 99 (80-105) 01/17/19 11:20 POC ABG HCO3 24.9 (22-26 mml/L) 01/17/19 11:20 POC ABG Total CO2 26 (23-27mmol/L) 01/17/19 11:20 POC ABG O2 Sat 98 01/17/19 11:20 PT/INR, D-dimer PT 14.2 Sec. (12.2-14.9) 01/14/19 05:13 INR 1.11 (0.87-1.13) 01/14/19 05:13 D-Dimer 135.00 ng/mlDDU (0-234) 01/13/19 00:27 Abnormal lab findings: Abnormal Labs 01/13/19 01/13/19 01/13/19 00:27 00:27 00:27 RBC 3.36 L Hgb Hct Lymph % (Auto) 4.2 L [place] % (Auto) Lymph # 0.3 L Seg Neutrophils % 89.1 H APTT POC ABG pH POC ABG pCO2 POC ABG pO2 VBG pH 7.178 L* Chloride 109.1 H Carbon Dioxide 20 L BUN 29 H Creatinine Glucose 175 H POC Glucose Lactic Acid Calcium 7.8 L CK-MB (CK-2) 7.7 H CK-MB (CK-2) Rel Index 7.2 H Total Protein 6.0 L Albumin 3.3 L Ur Specific [place] 01/13/19 01/13/19 01/13/19 00:27 02:14 02:22 RBC Hgb Hct Lymph % (Auto) [place] % (Auto) Lymph # Seg Neutrophils % APTT POC ABG pH 7.276 L POC ABG pCO2 49.4 H POC ABG pO2 156 H VBG pH Chloride Carbon Dioxide BUN Creatinine Glucose POC Glucose Lactic Acid 2.90 H* 0.30 L Calcium CK-MB (CK-2) CK-MB (CK-2) Rel Index Total Protein Albumin Ur Specific [place] 01/13/19 01/13/19 01/14/19 02:22 02:34 05:13 RBC 2.96 L Hgb 9.3 L Hct 27.4 L Lymph % (Auto) [place] % (Auto) 11.9 H Lymph # Seg Neutrophils % APTT 39.4 H POC ABG pH POC ABG pCO2 POC ABG pO2 VBG pH Chloride Carbon Dioxide BUN Creatinine Glucose POC Glucose Lactic Acid Calcium CK-MB (CK-2) CK-MB (CK-2) Rel Index Total Protein Albumin Ur Specific [place] 1.051 H 01/14/19 01/14/19 01/15/19 05:13 06:06 04:31 RBC Hgb Hct Lymph % (Auto) [place] % (Auto) Lymph # Seg Neutrophils % APTT POC ABG pH POC ABG pCO2 33.7 L POC ABG pO2 121 H 114 H VBG pH Chloride Carbon Dioxide 21 L BUN 22 H Creatinine 0.6 L Glucose 62 L POC Glucose Lactic Acid Calcium 8.0 L CK-MB (CK-2) CK-MB (CK-2) Rel Index Total Protein Albumin Ur Specific [place] 01/15/19 01/15/19 01/16/19 08:51 10:07 02:56 RBC Hgb Hct Lymph % (Auto) [place] % (Auto) Lymph # Seg Neutrophils % APTT POC ABG pH POC ABG pCO2 POC ABG pO2 VBG pH Chloride Carbon Dioxide BUN Creatinine Glucose POC Glucose < 40 L 158 H 142 H Lactic Acid Calcium CK-MB (CK-2) CK-MB (CK-2) Rel Index Total Protein Albumin Ur Specific [place] 01/16/19 01/17/19 01/17/19 17:54 04:06 04:23 RBC Hgb Hct Lymph % (Auto) [place] % (Auto) Lymph # Seg Neutrophils % APTT POC ABG pH POC ABG pCO2 33.7 L POC ABG pO2 VBG pH Chloride Carbon Dioxide BUN Creatinine Glucose POC Glucose 123 H 161 H Lactic Acid Calcium CK-MB (CK-2) CK-MB (CK-2) Rel Index Total Protein Albumin Ur Specific [place] 01/17/19 11:20 RBC Hgb Hct Lymph % (Auto) [place] % (Auto) Lymph # Seg Neutrophils % APTT POC ABG pH 7.498 H POC ABG pCO2 32.1 L POC ABG pO2 VBG pH Chloride Carbon Dioxide BUN Creatinine Glucose POC Glucose Lactic Acid Calcium CK-MB (CK-2) CK-MB (CK-2) Rel Index Total Protein Albumin Ur Specific [place] Chest x-ray: image reviewed (ETT in good position; no new infiltrates) Allied health notes reviewed: nursing
[2019-01-17] MEDS: GLYCOPYRROLATE 1 MG TAB PO SCH ×2 (13:35→20:57)
[2019-01-17] MEDS: HALOPERIDOL 5 MG TAB PO SCH (21:01)
--- NOTE | 2019-01-17 23:57 | Progress Note ---
Assessment and Plan Respiratory failure requiring intubation Cont vent weaning per protocols. Pulm following Cerebral palsy Patient has known history of cerebral palsy. Fecal impaction -large BM x 1 Yesterday. On lactulose -KUB pending -gastrograffin enema pending DVT prophylaxis On Heparin SQ The high probability of a clinically significant, sudden or life threatening deterioration of the [respiratory neurological] system(s) required my full and d irect attention, intervention and personal management. The aggregate critical care time was [31] minutes. This time is in addition to time spent performing reported procedures but includes the following: [x] Data Review and interpretation [x] Patient assessment and monitoring of vital signs [x] Documentation [x] Medication orders and management Subjective Date of service: 01/17/19 Principal diagnosis: Ac Hypoxemic and Hypercapnic Resp failure; Anemia; Cerebral palsy Interval history: 68-year-old female with known history of cerebral palsy was brought into the emergency room in respiratory distress. She is also known to have history of chronic constipation. She has been noticed to have increasing swelling of abdomen over the past few days. Upon arrival in the emergency room she was found to be constipated. She had a large bowel movement upon arrival. However because of her respiratory distress she was subsequently intubated. Her work-up however including CT of the abdomen shows fecal impaction. There has been no history of nausea vomiting. No fever or chills. Large BM yesterday. KUB showing Fecal impaction Objective - Constitutional Vitals: Vital Signs - 12hr 01/17/19 01/17/19 01/17/19 12:00 13:00 14:23 Temperature 98.7 F Pulse Rate 99 H Pulse Rate [ 88 From Monitor] Respiratory 23 Rate Blood Pressure 154/100 O2 Sat by Pulse 100 100 Oximetry 01/17/19 01/17/19 01/17/19 16:00 17:00 17:22 Temperature 98.8 F Pulse Rate 89 Pulse Rate [ 94 H From Monitor] Respiratory 24 Rate Blood Pressure 152/94 O2 Sat by Pulse 100 100 Oximetry 01/17/19 01/17/19 01/17/19 20:00 20:37 22:00 Temperature 98.2 F Pulse Rate 87 78 Pulse Rate [ From Monitor] Respiratory 8 L Rate Blood Pressure 148/89 O2 Sat by Pulse 100 100 Oximetry General appearance: Present: no acute distress, well-nourished - EENT Eyes: PERRL, EOM intact ENT: hearing intact, clear oral mucosa Ears: bilateral: normal - Neck Neck: supple, normal ROM - Respiratory Respiratory effort: normal Respiratory: bilateral: CTA - Breasts Breasts: normal - Cardiovascular Rhythm: regular Heart Sounds: Present: S1 & S2. Absent: gallop, rub Extremities: pulses intact, No edema, normal color, Full ROM - Gastrointestinal General gastrointestinal: Present: soft, non-tender, non-distended, normal bowel sounds - Genitourinary Female genitourinary: normal - Integumentary Integumentary: clear, warm, dry - Musculoskeletal Musculoskeletal: 1, strength equal bilaterally - Neurologic Neurologic: moves all extremities - Psychiatric Psychiatric: memory intact, appropriate mood/affect, intact judgment & insight - Labs CBC & Chem 7: 01/14/19 05:13 01/14/19 05:13 Labs: Abnormal lab results 01/16/19 01/17/19 01/17/19 Range/Units 17:54 04:06 04:23 POC ABG pH (7.35-7.45) POC ABG pCO2 33.7 L (35-45) POC Glucose 123 H 161 H (70-105) 01/17/19 Range/Units 11:20 POC ABG pH 7.498 H (7.35-7.45) POC ABG pCO2 32.1 L (35-45) POC Glucose (70-105)
--- NOTE | 2019-01-18 08:41 | XRay Report ---
CHEST 1 VIEW INDICATION / CLINICAL INFORMATION: follow up respiratory failure. COMPARISON: 01/17/2019 FINDINGS: SUPPORT DEVICES: Nasogastric tube appears unchanged. Endotracheal tube tip is positioned approximatel y 4 cm above the jodie. HEART / MEDIASTINUM: No significant abnormality. LUNGS / PLEURA: No significant pulmonary or pleural abnormality.. No pneumothorax. ADDITIONAL FINDINGS: No significant additional findings. IMPRESSION: 1. No acute findings. Signer Name: Terry Bueno MD Signed: 01/18/2019 8:37 AM Workstation Name: [id number]
--- NOTE | 2019-01-18 08:42 | XRay Report ---
ABDOMEN 1 VIEW(S) INDICATION / CLINICAL INFORMATION: Fecal impaction, constipation. COMPARISON: None available. FINDINGS: TUBES / LINES: Nasogastric tube tip is in stomach BOWEL GAS PATTERN/EXTRALUMINAL GAS: There is marked decrease in the volume of stool in the colon. The re is some gas noted throughout the small bowel and there is some gas in the colon. No pneumatosis or secondary signs of free air. ADDITIONAL FINDINGS: No significant additional findings. IMPRESSION: 1. Marked interval decrease in volume of stool in the colon Signer Name: Terry Bueno MD Signed: 01/18/2019 8:38 AM Workstation Name: [id number]
[2019-01-18] MEDS ORDERED: SODIUM BICARBONATE 325 MG TAB FEEDTUBE PRN (09:36)
[2019-01-18] MEDS ORDERED: LIPASE 10,500/PROTEASE 25,000/AMYLASE 43,750 (UNITS) DR CAP FEEDTUBE PRN (09:36)
[2019-01-18] MEDS ORDERED: SIMPLE SYRUP 15 ML FEEDTUBE PRN ×2 (09:36)
--- NOTE | 2019-01-18 10:11 | Progress Note ---
Assessment and Plan Acute Hypoxemic and Hypercapnic Respiratory failure requiring intubation/MVS Anemia (Normocytic) Acute Encephalopathy( improving) Cerebral palsy Fecal impaction( resolved) Get weaning parameters, if acceptable plan to liberate from MVS Stop OGT feedings in anticipation of extubation Once extubated, keep NPO, get TILE GRADER evaluation in the morning. - continue daily SAT's and SBT - VAP bundle addressed (Aspiration precautions, HOB > 40 degrees) - continue Lung protective strategies - continue to wean FIO2 for O2 sats >90% - continue bronchodilators with pulmonary hygiene per RT - CXR and ABG prn - begin enteral nutrition and advance to goal rate as tolerated (hold for tentative extubation) - continue agitation management / Pain management per CPOT - follow clinically off AB's - continue VTE prophylaxis - continue stress ulcer prophylaxis - continue accuchecks with glycemic control for SSI (While critically ill target blood glucose of 140-180 mg/dL; avoid hypoglycemia) - Continue mobility protocol for pressure ulcer prevention - Continue to monitor hemodynamics closely - Monitor electrolyte profile closely and replete as indicated - continue chronic home medications per attending and as clinically indicated - continue other care per attending / other consultants CONDITION: CRITICAL PROGNOSIS: GUARDED CODE STATUS: FULL CODE The high probability of a clinically significant, sudden or life-threatening deterioration of the [cardiac, respiratory & neurologic] system(s) required my full and direct attention, intervention and personal management. The aggregate critical care time was [32] minutes without overlap. Time includes spent on; [x] Data Review and interpretation [x] Patient assessment and monitoring of vital signs [x] Documentation [x] Medication orders and management Subjective Date of service: 01/18/19 Principal diagnosis: Ac Hypoxemic and Hypercapnic Resp failure; Anemia; Cerebral palsy Interval history: Patient is seen today for: Acute Hypoxemic and Hypercapnic Respiratory failure; Anemia; Acute Encephalopathy; Cerebral palsy; Fecal impaction Seen and examined at bedside; 24hour events reviewed; nursing and respiratory care staff consulted; no adverse overnight events reported to me; resting in bed; remains on MVS; tolerating PSV trial better today on PS 10/6 with spontaneous tidal volumes 380-550 ; AMS is persistent; secretions much better; N o N/V/F/C, Vitals, labs, medications, chart reviewed Objective Vital Signs - 12hr 01/18/19 01/18/19 01/18/19 00:00 00:58 04:00 Temperature 97.5 F L 98.3 F Pulse Rate 76 Respiratory Rate Blood Pressure 159/90 O2 Sat by Pulse 100 100 100 Oximetry 01/18/19 01/18/19 01/18/19 04:16 08:00 09:30 Temperature 98.5 F Pulse Rate 82 88 Respiratory 13 Rate Blood Pressure 141/85 131/83 O2 Sat by Pulse 100 100 Oximetry Constitutional: no acute distress, alert Eyes: non-icteric ENT: oropharynx moist, other (ETT 23 cm SHERMAN) Neck: supple, no lymphadenopathy, no JVD Effort: normal Ascultation: Bilateral: rales Percussion: Bilateral: not dull Cardiovascular: regular rate and rhythm, other (S1,S2) Gastrointestinal: normoactive bowel sounds, hypoactive bowel sounds, soft, non- tender, non-distended Integumentary: rash Extremities: no cyanosis, pulses normal, no ischemia or petechiae Neurologic: pupils equal and round, other (awake, alert, tracking voice) Psychiatric: mood appropriate, affect normal CBC and BMP: 01/14/19 05:13 01/14/19 05:13 ABG, PT/INR, D-dimer: ABG POC ABG pH 7.484 (7.35-7.45) H 01/18/19 04:34 POC ABG pCO2 35.6 (35-45) 01/18/19 04:34 POC ABG pO2 121 (80-105) H 01/18/19 04:34 POC ABG HCO3 26.8 (22-26 mml/L) 01/18/19 04:34 POC ABG Total CO2 28 (23-27mmol/L) 01/18/19 04:34 POC ABG O2 Sat 99 01/18/19 04:34 PT/INR, D-dimer PT 14.2 Sec. (12.2-14.9) 01/14/19 05:13 INR 1.11 (0.87-1.13) 01/14/19 05:13 D-Dimer 135.00 ng/mlDDU (0-234) 01/13/19 00:27 Abnormal lab findings: Abnormal Labs 01/13/19 01/13/19 01/13/19 00:27 00:27 00:27 RBC 3.36 L Hgb Hct Lymph % (Auto) 4.2 L [place] % (Auto) Lymph # 0.3 L Seg Neutrophils % 89.1 H APTT POC ABG pH POC ABG pCO2 POC ABG pO2 VBG pH 7.178 L* Chloride 109.1 H Carbon Dioxide 20 L BUN 29 H Creatinine Glucose 175 H POC Glucose Lactic Acid Calcium 7.8 L CK-MB (CK-2) 7.7 H CK-MB (CK-2) Rel Index 7.2 H Total Protein 6.0 L Albumin 3.3 L Ur Specific [place] 01/13/19 01/13/19 01/13/19 00:27 02:14 02:22 RBC Hgb Hct Lymph % (Auto) [place] % (Auto) Lymph # Seg Neutrophils % APTT POC ABG pH 7.276 L POC ABG pCO2 49.4 H POC ABG pO2 156 H VBG pH Chloride Carbon Dioxide BUN Creatinine Glucose POC Glucose Lactic Acid 2.90 H* 0.30 L Calcium CK-MB (CK-2) CK-MB (CK-2) Rel Index Total Protein Albumin Ur Specific [place] 01/13/19 01/13/19 01/14/19 02:22 02:34 05:13 RBC 2.96 L Hgb 9.3 L Hct 27.4 L Lymph % (Auto) [place] % (Auto) 11.9 H Lymph # Seg Neutrophils % APTT 39.4 H POC ABG pH POC ABG pCO2 POC ABG pO2 VBG pH Chloride Carbon Dioxide BUN Creatinine Glucose POC Glucose Lactic Acid Calcium CK-MB (CK-2) CK-MB (CK-2) Rel Index Total Protein Albumin Ur Specific [place] 1.051 H 01/14/19 01/14/19 01/15/19 05:13 06:06 04:31 RBC Hgb Hct Lymph % (Auto) [place] % (Auto) Lymph # Seg Neutrophils % APTT POC ABG pH POC ABG pCO2 33.7 L POC ABG pO2 121 H 114 H VBG pH Chloride Carbon Dioxide 21 L BUN 22 H Creatinine 0.6 L Glucose 62 L POC Glucose Lactic Acid Calcium 8.0 L CK-MB (CK-2) CK-MB (CK-2) Rel Index Total Protein Albumin Ur Specific [place] 01/15/19 01/15/19 01/16/19 08:51 10:07 02:56 RBC Hgb Hct Lymph % (Auto) [place] % (Auto) Lymph # Seg Neutrophils % APTT POC ABG pH POC ABG pCO2 POC ABG pO2 VBG pH Chloride Carbon Dioxide BUN Creatinine Glucose POC Glucose < 40 L 158 H 142 H Lactic Acid Calcium CK-MB (CK-2) CK-MB (CK-2) Rel Index Total Protein Albumin Ur Specific [place] 01/16/19 01/17/19 01/17/19 17:54 04:06 04:23 RBC Hgb Hct Lymph % (Auto) [place] % (Auto) Lymph # Seg Neutrophils % APTT POC ABG pH POC ABG pCO2 33.7 L POC ABG pO2 VBG pH Chloride Carbon Dioxide BUN Creatinine Glucose POC Glucose 123 H 161 H Lactic Acid Calcium CK-MB (CK-2) CK-MB (CK-2) Rel Index Total Protein Albumin Ur Specific [place] 01/17/19 01/18/19 11:20 04:34 RBC Hgb Hct Lymph % (Auto) [place] % (Auto) Lymph # Seg Neutrophils % APTT POC ABG pH 7.498 H 7.484 H POC ABG pCO2 32.1 L POC ABG pO2 121 H VBG pH Chloride Carbon Dioxide BUN Creatinine Glucose POC Glucose Lactic Acid Calcium CK-MB (CK-2) CK-MB (CK-2) Rel Index Total Protein Albumin Ur Specific [place] Chest x-ray: image reviewed Allied health notes reviewed: RT
--- NOTE | 2019-01-18 11:47 | Gastroenterology Progress Note ---
Assessment and Plan 1. Fecal impaction/constipation 2. Respiratory failure 3. Cerebral palsy -Multiple BMs yesterday s/p colon prep -KUB this am showed marked interval decrease in volume of stool in the colon -clinically, abdomen is soft with distention improved upon exam. -continue daily bowel regimen with Miralax BID -avoid narcotics -continue supportive care -no further recommendations per GI standpoint at this time -will sign off, please call if needed Subjective Date of service: 01/18/19 Principal diagnosis: fecal impaction Interval history: Patient remains in ICU on vent. No acute distress. Multiple BMs yesterday s/p colon prep. Objective - Constitutional Vitals: Temp Pulse Resp BP Pulse Ox 98.5 F 88 13 131/83 100 01/18/19 08:00 01/18/19 09:30 01/18/19 09:30 01/18/19 09:30 01/18/19 09:30 General appearance: no acute distress, other (in ICU on vent) - Respiratory Respiratory: bilateral: rales - Cardiovascular Rhythm: regular - Gastrointestinal General gastrointestinal: Present: soft, non-tender, non-distended, hypoactive bowel sounds - Integumentary Integumentary: Present: warm, dry - Labs CBC & Chem 7: 01/14/19 05:13 01/14/19 05:13 Labs: Laboratory Results - last 24 hr 01/17/19 01/17/19 01/18/19 11: 18:41 04:34 POC ABG pH 7.498 H 7.484 H POC ABG pCO2 32.1 L 35.6 POC ABG pO2 99 121 H POC ABG HCO3 24.9 26.8 POC ABG Total CO2 26 28 POC ABG O2 Sat 98 99 POC ABG Base Excess 2 3 FiO2 25 25 POC Glucose 102
[2019-01-18] MEDS: LORazepam 1 MG TAB PO SCH ×2 (14:37→16:44)
[2019-01-18] MEDS: GLYCOPYRROLATE 1 MG TAB PO SCH ×3 (14:37→20:37)
[2019-01-18] MEDS: HEPARIN 5,000 UNIT/1 ML VIAL SUB-Q SCH ×2 (14:45→22:25)
[2019-01-18] MEDS: SCOPOLAMINE TRANSDERMAL PATCH 72 HR TD SCH (14:48)
--- NOTE | 2019-01-18 15:38 | XRay Report ---
ABDOMEN 1 VIEW(S) INDICATION / CLINICAL INFORMATION: DHT feeding tube plcmt. COMPARISON: 01/18/2019, 0727 hours FINDINGS: TUBES / LINES: Tip of feeding tube projects the level the body of the stomach BOWEL GAS PATTERN/EXTRALUMINAL GAS: There is gas noted throughout the bowel. The volume of bowel gas is somewhat increased when compared to radiograph obtained earlier. No pneumatosis or secondary signs of free air. ADDITIONAL FINDINGS: No significant additional findings. Signer Name: Terry Bueno MD Signed: 01/18/2019 3:34 PM Workstation Name: [id number]
[2019-01-18] MEDS ORDERED: IPRATROPIUM/ALBUTEROL SULFATE 3 ML AMPUL.NEB IH ONE (16:32)
[2019-01-18] MEDS ORDERED: EPINEPHrine RACEMIC 2.25% 0.5ML NEBU IH ONE (16:41)
[2019-01-18] MEDS: FAMOTIDINE 20 MG TAB PO SCH ×2 (16:44→22:26)
[2019-01-18] MEDS: QUEtiapine 200 MG TAB PO SCH (16:44)
[2019-01-18] MEDS: LACTULOSE 20 GM/30 ML ORAL LIQD PO SCH ×2 (16:44→22:25)
[2019-01-18] MEDS: traZODone 100 MG TAB PO SCH (16:44)
[2019-01-18] MEDS: POLYETHYLENE GLYCOL 3350 17 GM POWDER PO SCH ×2 (16:44→22:25)
[2019-01-18] MEDS ORDERED: EPINEPHrine RACEMIC 2.25% 0.5ML NEBU IH STA (17:19)
[2019-01-18] MEDS ORDERED: hydrALAZINE 20 MG/1 ML INJ IV PRN (18:48)
[2019-01-18] MEDS: LORazepam 2 MG/ML VIAL IV PRN (19:37)
[2019-01-18] MEDS: HALOPERIDOL 5 MG TAB PO SCH (22:25)
[2019-01-19] MEDS: LORazepam 1 MG TAB PO SCH ×3 (01:16→17:08)
[2019-01-19] MEDS: LORazepam 2 MG/ML VIAL IV PRN (01:17)
--- NOTE | 2019-01-19 02:48 | XRay Report ---
CHEST 1 VIEW INDICATION: follow up respiratory failure. COMPARISON: Previous day. FINDINGS: Support devices: NG tube removed. Heart: Within normal limits. Lungs/Pleura: No acute air space or interstitial disease. Additional findings: None. IMPRESSION: No acute infiltrate. Signer Name: Dread Mullen MD Signed: 01/19/2019 2:44 AM Workstation Name: [email or web address]
--- NOTE | 2019-01-19 07:07 | Progress Note ---
Assessment and Plan Respiratory failure requiring intubation Cont vent weaning per protocols. Pulm following Extubated today On Bipap Cerebral palsy Patient has known history of cerebral palsy. Fecal impaction -large BM x 1 Yesterday. On lactulose -gastrograffin enema pending DVT prophylaxis On Heparin SQ The high probability of a clinically significant, sudden or life threatening deterioration of the [respiratory neurological] system(s) required my full and direct attention, intervention and personal management. The aggregate critical care time was [31] minutes. This time is in addition to time spent performing reported procedures but includes the following: [x] Data Review and interpretation [x] Patient assessment and monitoring of vital signs [x] Documentation [x] Medication orders and management Subjective Date of service: 01/18/19 Principal diagnosis: Ac Hypoxemic and Hypercapnic Resp failure; Anemia; Cerebral palsy Interval history: 68-year-old female with known history of cerebral palsy was brought into the emergency room in respiratory distress. She is also known to have history of chronic constipation. She has been noticed to have increasing swelling of abdomen over the past few days. Upon arrival in the emergency room she was found to be constipated. She had a large bowel movement upon arrival. However because of her respiratory distress she was subsequently intubated. Her work-up however including CT of the abdomen shows fecal impaction. There has been no history of nausea vomiting. No fever or chills. Large BM yesterday. KUB showing Fecal impaction Objective - Constitutional Vitals: Vital Signs - 12hr 01/18/19 01/18/19 01/18/19 19:36 19:45 19:57 Temperature 98.8 F Pulse Rate 103 H 92 H Pulse Rate [ Bilateral Throughout] Pulse Rate [ From Monitor] Respiratory 23 Rate Respiratory Rate [Bilateral Throughout] Blood Pressure 199/118 175/100 O2 Sat by Pulse 97 Oximetry 01/18/19 01/18/19 01/18/19 20:00 20:01 20:03 Temperature Pulse Rate 104 H 92 H Pulse Rate [ Bilateral Throughout] Pulse Rate [ 104 H From Monitor] Respiratory 25 H 25 H Rate Respiratory Rate [Bilateral Throughout] Blood Pressure 167/90 O2 Sat by Pulse 100 100 Oximetry 01/18/19 01/18/19 01/18/19 20:41 20:44 21:01 Temperature Pulse Rate 88 91 H Pulse Rate [ 90 Bilateral Throughout] Pulse Rate [ From Monitor] Respiratory 24 21 Rate Respiratory 22 Rate [Bilateral Throughout] Blood Pressure 175/100 151/80 O2 Sat by Pulse 95 100 Oximetry 01/18/19 01/18/19 01/18/19 22:00 23:00 23:38 Temperature Pulse Rate 98 H 96 H 99 H Pulse Rate [ Bilateral Throughout] Pulse Rate [ From Monitor] Respiratory 21 22 24 Rate Respiratory Rate [Bilateral Throughout] Blood Pressure 161/85 150/78 150/78 O2 Sat by Pulse 100 100 100 Oximetry 01/19/19 01/19/19 01/19/19 00:00 01:00 02:00 Temperature 97.4 F L Pulse Rate 99 H 95 H 106 H Pulse Rate [ Bilateral Throughout] Pulse Rate [ 99 H From Monitor] Respiratory 22 23 23 Rate Respiratory Rate [Bilateral Throughout] Blood Pressure 152/71 137/71 91/60 O2 Sat by Pulse 100 98 100 Oximetry 01/19/19 01/19/19 01/19/19 03:00 03:46 04:00 Temperature 97.6 F Pulse Rate 93 H 95 H 92 H Pulse Rate [ Bilateral Throughout] Pulse Rate [ 92 H From Monitor] Respiratory 24 24 25 H Rate Respiratory Rate [Bilateral Throughout] Blood Pressure 120/79 115/80 129/76 O2 Sat by Pulse 100 100 100 Oximetry 01/19/19 01/19/19 05:00 06:00 Temperature Pulse Rate 92 H 91 H Pulse Rate [ Bilateral Throughout] Pulse Rate [ From Monitor] Respiratory 23 21 Rate Respiratory Rate [Bilateral Throughout] Blood Pressure 127/78 135/81 O2 Sat by Pulse 100 100 Oximetry General appearance: Present: mild distress, well-nourished - EENT Eyes: PERRL, EOM intact ENT: hearing intact, clear oral mucosa Ears: bilateral: normal - Neck Neck: supple, normal ROM - Respiratory Respiratory effort: normal Respiratory: bilateral: CTA, rhonchi - Breasts Breasts: normal - Cardiovascular Rhythm: regular Heart Sounds: Present: S1 & S2. Absent: gallop, rub Extremities: pulses intact, No edema, normal color, Full ROM - Gastrointestinal General gastrointestinal: Present: soft, non-tender, non-distended, normal bowel sounds - Genitourinary Female genitourinary: normal - Integumentary Integumentary: clear, warm, dry - Musculoskeletal Musculoskeletal: 1, strength equal bilaterally - Neurologic Neurologic: moves all extremities - Psychiatric Psychiatric: memory intact, appropriate mood/affect, intact judgment & insight - Labs CBC & Chem 7: 01/14/19 05:13 01/14/19 05:13
[2019-01-19] MEDS ORDERED: IPRATROPIUM/ALBUTEROL SULFATE 3 ML AMPUL.NEB IH ONE ×2 (08:08→09:30)
[2019-01-19] MEDS: GLYCOPYRROLATE 1 MG TAB PO SCH (08:56)
[2019-01-19] MEDS: POLYETHYLENE GLYCOL 3350 17 GM POWDER PO SCH ×2 (10:00→21:50)
[2019-01-19] MEDS: FAMOTIDINE 20 MG TAB PO SCH ×2 (10:00→21:51)
[2019-01-19] MEDS: LACTULOSE 20 GM/30 ML ORAL LIQD PO SCH (10:00)
[2019-01-19] MEDS: HEPARIN 5,000 UNIT/1 ML VIAL SUB-Q SCH ×2 (10:36→21:49)
--- NOTE | 2019-01-19 11:43 | XRay Report ---
ABDOMEN 1 VIEW(S) INDICATION / CLINICAL INFORMATION: dobhoff placement. COMPARISON: 01/18/2019 FINDINGS: TUBES / LINES: Feeding tube is coiled in the stomach BOWEL GAS PATTERN/EXTRALUMINAL GAS: No significant abnormality. No pneumatosis or secondary signs of free air. There is gas noted throughout the small and large bowel. The volume of bowel gas is mildly decreased from yesterday's study ADDITIONAL FINDINGS: No significant additional findings. IMPRESSION: 1. No acute abnormality. Signer Name: Terry Bueno MD Signed: 01/19/2019 11:38 AM Workstation Name: [id number]
[2019-01-19] MEDS: IPRATROPIUM/ALBUTEROL SULFATE 3 ML AMPUL.NEB IH SCH ×3 (12:04→20:36)
[2019-01-19] MEDS ORDERED: LIPASE 10,500/PROTEASE 25,000/AMYLASE 43,750 (UNITS) DR CAP FEEDTUBE PRN (13:12)
[2019-01-19] MEDS ORDERED: SODIUM BICARBONATE 325 MG TAB FEEDTUBE PRN (13:12)
[2019-01-19] MEDS: traZODone 100 MG TAB PO SCH (13:12)
[2019-01-19] MEDS ORDERED: SIMPLE SYRUP 15 ML FEEDTUBE PRN ×2 (13:12)
[2019-01-19] MEDS: QUEtiapine 200 MG TAB PO SCH (13:16)
--- NOTE | 2019-01-19 15:28 | Progress Note ---
Assessment and Plan Acute Hypoxemic and Hypercapnic Respiratory failure s/p extubation on NIPPV Anemia (Normocytic) Acute Encephalopathy( improving) Cerebral palsy Fecal impaction( resolved) Moderate- severe protein calorie malnutrition -Place small bowel feeding tube for nutritional support -NIPPV, can take her off NIPPV and trial supplemental oxygen via NC with NIPPV at night -Aspiration precautions, HOB >40% -CHEMICAL CHECKER to evaluate and treat once she is off BIPAP -PT/OT to evaluate and treat -wean supplemental oxygen for O2 sats>90% -Get ABG and adjust BIPAP settings as indicated -Mainenance of sleep -wake cycle -Avoid delirium and -continue bronchodilators with pulmonary hygiene per RT - CXR and ABG prn -Stop IV sedation, resume her home once small bowel feeding tube is placed and placement confirmed - continue agitation management / Pain management per CPOT - follow clinically off antibiotics - continue VTE prophylaxis - continue stress ulcer prophylaxis - continue accuchecks with glycemic control for SSI (While critically ill target blood glucose of 140-180 mg/dL; avoid hypoglycemia) - Continue mobility protocol for pressure ulcer prevention - Continue to monitor hemodynamics closely - Monitor electrolyte profile closely and replete as indicated - continue other care per attending / other consultants Discussed with Dr. Sheikh- monitor overnight in ICU CONDITION: CRITICAL PROGNOSIS: GUARDED CODE STATUS: FULL CODE The high probability of a clinically significant, sudden or life-threatening deterioration of the [cardiac, respiratory & neurologic] system(s) required my full and direct attention, intervention and personal management. The aggregate critical care time was [32] minutes without overlap. Time includes spent on; [x] Data Review and interpretation [x] Patient assessment and monitoring of vital signs [x] Documentation [x] Medication orders and management Subjective Date of service: 01/19/19 Principal diagnosis: Ac Hypoxemic and Hypercapnic Resp failure; Anemia; Cerebral palsy Interval history: Patient is seen today for: Acute Hypoxemic and Hypercapnic Respiratory failure; Anemia; Acute Encephalopathy; Cerebral palsy; Fecal impaction Seen and examined at bedside; 24hour events reviewed; nursing and respiratory care staff consulted; no adverse overnight events reported to me; resting in bed; s/p extubation, required racemic epinephrine for stridor and BIPAP for increased work of breathing about 4 hours post extubation. Somnolent this morning, but had 2 doses of IV lorazepam overnight. Has been having good bowel movements Vitals, labs, medications, chart reviewed Sister at the bedside Objective Vital Signs - 12hr 01/19/19 01/19/19 01/19/19 03:46 04:00 05:00 Temperature 97.6 F Pulse Rate 95 H 92 H 92 H Pulse Rate [ Anterior Throughout] Pulse Rate [ Bilateral Throughout] Pulse Rate [ 92 H From Monitor] Respiratory 24 25 H 23 Rate Respiratory Rate [Anterior Throughout] Respiratory Rate [Bilateral Throughout] Blood Pressure 115/80 129/76 127/78 O2 Sat by Pulse 100 100 100 Oximetry 01/19/19 01/19/19 01/19/19 06:00 07:00 08:00 Temperature 97.5 F L Pulse Rate 91 H 90 94 H Pulse Rate [ Anterior Throughout] Pulse Rate [ Bilateral Throughout] Pulse Rate [ From Monitor] Respiratory 21 25 H 23 Rate Respiratory Rate [Anterior Throughout] Respiratory Rate [Bilateral Throughout] Blood Pressure 135/81 135/87 148/88 O2 Sat by Pulse 100 99 96 Oximetry 01/19/19 01/19/19 01/19/19 09:00 09:30 09:56 Temperature Pulse Rate 95 H 99 H Pulse Rate [ 94 H Anterior Throughout] Pulse Rate [ 94 H Bilateral Throughout] Pulse Rate [ From Monitor] Respiratory 23 23 Rate Respiratory 25 H Rate [Anterior Throughout] Respiratory 25 H Rate [Bilateral Throughout] Blood Pressure 152/93 148/96 O2 Sat by Pulse 100 100 Oximetry 01/19/19 01/19/19 01/19/19 10:00 10:47 11:00 Temperature 97.3 F L Pulse Rate 92 H 99 H Pulse Rate [ Anterior Throughout] Pulse Rate [ Bilateral Throughout] Pulse Rate [ From Monitor] Respiratory 29 H 25 H Rate Respiratory Rate [Anterior Throughout] Respiratory Rate [Bilateral Throughout] Blood Pressure 155/91 135/90 O2 Sat by Pulse 100 94 Oximetry 01/19/19 01/19/19 01/19/19 12:01 12:05 12:10 Temperature Pulse Rate 91 H Pulse Rate [ 93 H Anterior Throughout] Pulse Rate [ 93 H Bilateral Throughout] Pulse Rate [ From Monitor] Respiratory 30 H Rate Respiratory 28 H Rate [Anterior Throughout] Respiratory 28 H Rate [Bilateral Throughout] Blood Pressure 158/96 O2 Sat by Pulse 97 100 Oximetry 01/19/19 01/19/19 01/19/19 12:49 13:01 13:07 Temperature 98.1 F Pulse Rate 102 H 109 H Pulse Rate [ Anterior Throughout] Pulse Rate [ Bilateral Throughout] Pulse Rate [ From Monitor] Respiratory 32 H 26 H Rate Respiratory Rate [Anterior Throughout] Respiratory Rate [Bilateral Throughout] Blood Pressure 155/92 147/95 O2 Sat by Pulse 100 93 Oximetry 01/19/19 14:00 Temperature Pulse Rate 114 H Pulse Rate [ Anterior Throughout] Pulse Rate [ Bilateral Throughout] Pulse Rate [ From Monitor] Respiratory 20 Rate Respiratory Rate [Anterior Throughout] Respiratory Rate [Bilateral Throughout] Blood Pressure 144/94 O2 Sat by Pulse 95 Oximetry Constitutional: no acute distress, other (on BIPAP, rousable when I adjusted her mask and turned the lights on) Eyes: non-icteric ENT: oropharynx dry Neck: supple, no lymphadenopathy, no JVD Effort: mildly labored Ascultation: Bilateral: rales Percussion: Bilateral: not dull Cardiovascular: regular rate and rhythm, other (S1,S2) Gastrointestinal: normoactive bowel sounds, soft, non-tender, non-distended Integumentary: rash Extremities: no cyanosis, no edema, pulses normal, no ischemia or petechiae Neurologic: pupils equal and round, other (awake, alert, ) Psychiatric: other (unable to assess) CBC and BMP: 01/14/19 05:13 01/14/19 05:13 ABG, PT/INR, D-dimer: ABG POC ABG pH 7.442 (7.35-7.45) 01/19/19 11:55 POC ABG pCO2 41.8 (35-45) 01/19/19 11:55 POC ABG pO2 52 (80-105) L 01/19/19 11:55 POC ABG HCO3 28.5 (22-26 mml/L) 01/19/19 11:55 POC ABG Total CO2 30 (23-27mmol/L) 01/19/19 11:55 POC ABG O2 Sat 88 01/19/19 11:55 PT/INR, D-dimer PT 14.2 Sec. (12.2-14.9) 01/14/19 05:13 INR 1.11 (0.87-1.13) 01/14/19 05:13 D-Dimer 135.00 ng/mlDDU (0-234) 01/13/19 00:27 Abnormal lab findings: Abnormal Labs 01/13/19 01/13/19 01/13/19 00:27 00:27 00:27 RBC 3.36 L Hgb Hct Lymph % (Auto) 4.2 L [place] % (Auto) Lymph # 0.3 L Seg Neutrophils % 89.1 H APTT POC ABG pH POC ABG pCO2 POC ABG pO2 VBG pH 7.178 L* Chloride 109.1 H Carbon Dioxide 20 L BUN 29 H Creatinine Glucose 175 H POC Glucose Lactic Acid Calcium 7.8 L CK-MB (CK-2) 7.7 H CK-MB (CK-2) Rel Index 7.2 H Total Protein 6.0 L Albumin 3.3 L Ur Specific [place] 01/13/19 01/13/19 01/13/19 00:27 02:14 02:22 RBC Hgb Hct Lymph % (Auto) [place] % (Auto) Lymph # Seg Neutrophils % APTT POC ABG pH 7.276 L POC ABG pCO2 49.4 H POC ABG pO2 156 H VBG pH Chloride Carbon Dioxide BUN Creatinine Glucose POC Glucose Lactic Acid 2.90 H* 0.30 L Calcium CK-MB (CK-2) CK-MB (CK-2) Rel Index Total Protein Albumin Ur Specific [place] 01/13/19 01/13/19 01/14/19 02:22 02:34 05:13 RBC 2.96 L Hgb 9.3 L Hct 27.4 L Lymph % (Auto) [place] % (Auto) 11.9 H Lymph # Seg Neutrophils % APTT 39.4 H POC ABG pH POC ABG pCO2 POC ABG pO2 VBG pH Chloride Carbon Dioxide BUN Creatinine Glucose POC Glucose Lactic Acid Calcium CK-MB (CK-2) CK-MB (CK-2) Rel Index Total Protein Albumin Ur Specific [place] 1.051 H 01/14/19 01/14/19 01/15/19 05:13 06:06 04:31 RBC Hgb Hct Lymph % (Auto) [place] % (Auto) Lymph # Seg Neutrophils % APTT POC ABG pH POC ABG pCO2 33.7 L POC ABG pO2 121 H 114 H VBG pH Chloride Carbon Dioxide 21 L BUN 22 H Creatinine 0.6 L Glucose 62 L POC Glucose Lactic Acid Calcium 8.0 L CK-MB (CK-2) CK-MB (CK-2) Rel Index Total Protein Albumin Ur Specific [place] 11/01/15/19 01/16/19 08:51 10:07 02:56 RBC Hgb Hct Lymph % (Auto) [place] % (Auto) Lymph # Seg Neutrophils % APTT POC ABG pH POC ABG pCO2 POC ABG pO2 VBG pH Chloride Carbon Dioxide BUN Creatinine Glucose POC Glucose < 40 L 158 H 142 H Lactic Acid Calcium CK-MB (CK-2) CK-MB (CK-2) Rel Index Total Protein Albumin Ur Specific [place] 01/16/19 01/17/19 01/17/19 17:54 04:06 04:23 RBC Hgb Hct Lymph % (Auto) [place] % (Auto) Lymph # Seg Neutrophils % APTT POC ABG pH POC ABG pCO2 33.7 L POC ABG pO2 VBG pH Chloride Carbon Dioxide BUN Creatinine Glucose POC Glucose 123 H 161 H Lactic Acid Calcium CK-MB (CK-2) CK-MB (CK-2) Rel Index Total Protein Albumin Ur Specific [place] 01/17/19 01/18/19 01/19/19 11:20 04:34 11:55 RBC Hgb Hct Lymph % (Auto) [place] % (Auto) Lymph # Seg Neutrophils % APTT POC ABG pH 7.498 H 7.484 H POC ABG pCO2 32.1 L POC ABG pO2 121 H 52 L VBG pH Chloride Carbon Dioxide BUN Creatinine Glucose POC Glucose Lactic Acid Calcium CK-MB (CK-2) CK-MB (CK-2) Rel Index Total Protein Albumin Ur Specific [place] Chest x-ray: image reviewed (No new infiltrates, ETT out) Allied health notes reviewed: RT
--- NOTE | 2019-01-19 17:06 | Progress Note ---
Assessment and Plan Assessment and plan: Respiratory failure requiring intubation Cont vent weaning per protocols. Pulm following Extubated , On Bipap,supportive care Cerebral palsy Patient has known history of cerebral palsy. Fecal impaction -large BM x 1 Yesterday. On lactulose -gastrograffin enema as needed DVT prophylaxis On Heparin SQ The high probability of a clinically significant, sudden or life threatening deterioration of the [respiratory neurological] system(s) required my full and direct attention, intervention and personal management. The aggregate critical care time was [31] minutes. This time is in addition to time spent performing reported procedures but includes the following: [x] Data Review and interpretation [x] Patient assessment and monitoring of vital signs [x] Documentation [x] Medication orders and management History Interval history: Patient seen and examined medical records reviewed Patient was extubated,on Bipap.lethergic Mild distress, Vitals noted Hospitalist Physical - Constitutional Vitals: Temp Pulse Resp BP Pulse Ox 97.6 F 103 H 25 H 144/94 95 01/19/19 15:45 01/19/19 15:52 01/19/19 15:52 01/19/19 14:00 01/19/19 14:00 General appearance: Present: mild distress, well-nourished - EENT Eyes: Present: PERRL, EOM intact - Neck Neck: Present: supple, normal ROM - Respiratory Respiratory effort: normal Respiratory: bilateral: diminished, rhonchi, negative: rales, wheezing - Cardiovascular Rhythm: regular Heart Sounds: Present: S1 & S2 - Extremities Extremities: no ischemia, No edema - Abdominal General gastrointestinal: soft, non-tender, non-distended, normal bowel sounds - Integumentary Integumentary: Present: clear, warm - Psychiatric Psychiatric: other (on bipap) - Neurologic Neurologic: moves all extremities Results - Labs CBC & Chem 7: 01/14/19 05:13 01/14/19 05:13 Labs: Laboratory Last Values WBC 6.1 K/mm3 (4.5-11.0) 01/14/19 05:13 RBC 2.96 M/mm3 (3.65-5.03) L 01/14/19 05:13 Hgb 9.3 gm/dl (10.1-14.3) L 01/14/19 05:13 Hct 27.4 % (30.3-42.9) L 01/14/19 05:13 MCV 93 fl (79-97) 01/14/19 05:13 MCH 31 pg (28-32) 01/14/19 05:13 MCHC 34 % (30-34) 01/14/19 05:13 RDW 14.3 % (13.2-15.2) 01/14/19 05:13 Plt Count 155 K/mm3 (140-440) 01/14/19 05:13 Lymph % (Auto) 22.2 % (13.4-35.0) 01/14/19 05:13 [place] % (Auto) 11.9 % (0.0-7.3) H 01/14/19 05:13 Eos % (Auto) 0.9 % (0.0-4.3) 01/14/19 05:13 Baso % (Auto) 0.4 % (0.0-1.8) 01/14/19 05:13 Lymph # 1.4 K/mm3 (1.2-5.4) 01/14/19 05:13 [place] # 0.7 K/mm3 (0.0-0.8) 01/14/19 05:13 Eos # 0.1 K/mm3 (0.0-0.4) 01/14/19 05:13 Baso # 0.0 K/mm3 (0.0-0.1) 01/14/19 05:13 Seg Neutrophils % 64.6 % (40.0-70.0) 01/14/19 05:13 Seg Neutrophils # 3.9 K/mm3 (1.8-7.7) 01/14/19 05:13 PT 14.2 Sec. (12.2-14.9) 01/14/19 05:13 INR 1.11 (0.87-1.13) 01/14/19 05:13 APTT 31.9 Sec. (24.2-36.6) 01/14/19 05:13 D-Dimer 135.00 ng/mlDDU (0-234) 01/13/19 00:27 POC ABG pH 7.442 (7.35-7.45) 01/19/19 11:55 POC ABG pCO2 41.8 (35-45) 01/19/19 11:55 POC ABG pO2 52 (80-105) L 01/19/19 11:55 POC ABG HCO3 28.5 (22-26 mml/L) 01/19/19 11:55 POC ABG Total CO2 30 (23-27mmol/L) 01/19/19 11:55 POC ABG O2 Sat 88 01/19/19 11:55 POC ABG Base Excess 4 ((-2) - (+3)mmol/L) 01/19/19 11:55 VBG pH 7.178 (7.320-7.420) L* 01/13/19 00:27 FiO2 45 % 01/19/19 11:55 Sodium 140 mmol/L (137-145) 01/14/19 05:13 Potassium 4.0 mmol/L (3.6-5.0) 01/14/19 05:13 Chloride 107.0 mmol/L (98-107) 01/14/19 05:13 Carbon Dioxide 21 mmol/L (22-30) L 01/14/19 05:13 Anion Gap 16 mmol/L 01/14/19 05:13 BUN 22 mg/dL (7-17) H 01/14/19 05:13 Creatinine 0.6 mg/dL (0.7-1.2) L 01/14/19 05:13 Estimated GFR > 60 ml/min 01/14/19 05:13 BUN/Creatinine Ratio 37 % 01/14/19 05:13 Glucose 62 mg/dL (65-100) L 01/14/19 05:13 POC Glucose 98 (70-105) 01/19/19 11:51 Lactic Acid 0.30 mmol/L (0.7-2.0) L 01/13/19 02:22 Calcium 8.0 mg/dL (8.4-10.2) L 01/14/19 05:13 Total Bilirubin < 0.20 mg/dL (0.1-1.2) 01/13/19 00:27 AST 33 units/L (5-40) 01/13/19 00:27 ALT 28 units/L (7-56) 01/13/19 00:27 Alkaline Phosphatase 85 units/L (35-129) 01/13/19 00:27 Ammonia 25.0 umol/L (25-60) 01/13/19 00:27 Total Creatine Kinase 106 units/L (30-135) 01/13/19 00:27 CK-MB (CK-2) 7.7 ng/mL (0.0-4.0) H 01/13/19 00:27 CK-MB (CK-2) Rel Index 7.2 (0-4) H 01/13/19 00:27 Troponin T < 0.010 ng/mL (0.00-0.029) 01/13/19 00:27 NT-Pro-B Natriuret Pep 52.36 pg/mL (0-900) 01/13/19 00:27 Total Protein 6.0 g/dL (6.3-8.2) L 01/13/19 00:27 Albumin 3.3 g/dL (3.9-5) L 01/13/19 00:27 Albumin/Globulin Ratio 1.2 % 01/13/19 00:27 Urine Color Yellow (Yellow) 01/13/19 02:34 Urine Turbidity Slightly-cloudy (Clear) 01/13/19 02:34 Urine pH 5.0 (5.0-7.0) 01/13/19 02:34 Ur Specific [place] 1.051 (1.003-1.030) H 01/13/19 02:34 Urine Protein <15 mg/dl mg/dL (Negative) 01/13/19 02:34 Urine Glucose (UA) 50 mg/dL (Negative) 01/13/19 02:34 Urine Ketones Neg mg/dL (Negative) 01/13/19 02:34 Urine Blood Neg (Negative) 01/13/19 02:34 Urine Nitrite Neg (Negative) 01/13/19 02:34 Urine Bilirubin Neg (Negative) 01/13/19 02:34 Urine Urobilinogen < 2.0 mg/dL (<2.0) 01/13/19 02:34 Ur Leukocyte Esterase Neg (Negative) 01/13/19 02:34 Urine WBC (Auto) < 1.0 /HPF (0.0-6.0) 01/13/19 02:34 Urine RBC (Auto) < 1.0 /HPF (0.0-6.0) 01/13/19 02:34 U Epithel Cells (Auto) < 1.0 /HPF (0-13.0) 01/13/19 02:34 Urine Bacteria (Auto) 1+ /HPF (Negative) 01/13/19 02:34 Urine Mucus 1+ /HPF 01/13/19 02:34 Active Medications - Current Medications Current Medications: Generic Name Dose Route Start Last Admin Trade Name Freq PRN Reason Stop Dose Admin Acetaminophen 650 mg 01/13/19 04:55 Tylenol OR Q6H PRN Pain MILD(1-3)/Fever >100.5/WOOD Albuterol/Ipratropium 1 ampul 01/19/19 12:00 01/19/19 15:51 Duoneb *Not For Prn Use* IH 1 ampul QIDRT JOAN Administration Lipase/Protease/Amylase 1 each 01/19/19 13:12 Pancreazsundeep Schwartz 10,500 Unit FEEDTUBE PRN PRN For Clogged Feeding Tube Bisacodyl 10 mg 01/13/19 04:55 01/16/19 11:30 Dulcolax OR 10 mg QDAY PRN Administration constipation unrelieved by MOM Dextrose 25 ml 01/15/19 08:51 01/15/19 09:00 D50w (25gm) Syringe IV 25 ml Q30MIN PRN Administration Hypoglycemia Protocol Famotidine 20 mg 01/17/19 10:00 01/19/19 10:00 Pepcid PO Not Given BID [facility] Haloperidol 5 mg 01/15/19 22:00 01/18/19 22:25 Haldol PO Not Given QHS [facility] Heparin Sodium (Porcine) 5,000 unit 01/15/19 22:00 01/19/19 10:36 Heparin SUB-Q 5,000 unit Q12HR [facility] Administration Hydralazine HCl 10 mg 01/18/19 18:48 01/18/19 19:36 Apresoline IV 10 mg Q3HR PRN Administration SBP >/=160 Hydrophilic Ointment 1 applic 01/12/19 23:54 Vaseline Lip Therapy TP Q2HR PRN Dry Lips Lorazepam 1 mg 01/15/19 08:00 01/19/19 08:00 Ativan PO Not Given Q8H [facility] Multi-Ingred Cream/Lotion/Oil/Oint 1 applic 01/12/19 23:54 Artificial Tears Ophth Oint OU Q4HR PRN Dry Eye(s) Ondansetron HCl 4 mg 01/13/19 04:55 Zofran IV Q8H PRN Nausea And Vomiting Polyethylene Glycol 17 gm 01/18/19 11:00 01/19/19 10:00 Miralax 3350 PO Not Given BID JOAN Quetiapine Fumarate 600 mg 01/15/19 10:00 01/19/19 13:16 Seroquel PO 600 mg DAILY JOAN Administration Scopolamine 1 each 01/15/19 14:00 01/18/19 14:48 Transderm-Scop TD 1 each Q3D JOAN Administration Simple Syrup 15 ml 01/19/19 13:12 Simple Syrup FEEDTUBE PRN PRN Hypoglycemia Simple Syrup 30 ml 01/19/19 13:12 Simple Syrup FEEDTUBE PRN PRN Hypoglycemia Sodium Bicarbonate 325 mg 01/19/19 13:12 Sodium Bicarbonate FEEDTUBE PRN PRN For Clogged Feeding Tube Sodium Chloride 10 ml 01/13/19 10:00 01/19/19 13:17 Sodium Chloride Flush Syringe 10 Ml IV 10 ml BID JOAN Administration Sodium Chloride 10 ml 01/13/19 04:55 Sodium Chloride Flush Syringe 10 Ml IV PRN PRN LINE FLUSH Trazodone HCl 100 mg 01/15/19 10:00 01/19/19 13:12 Desyrel PO 100 mg DAILY JOAN Administration Nutrition/Malnutrition Assess - Dietary Evaluation Nutrition/Malnutrition Findings: Nutrition Notes Start: 01/13/19 12:10 Freq: Status: Active Protocol: Document 01/19/19 10:58 CC (Rec: 01/19/19 11:13 CC [email or web address]) Co-Sign 01/19/19 10:58 LP Nutrition Notes Initial or Follow up Reassessment Current Diagnosis Respiratory Failure Other Pertinent Diagnosis Cerbral palsy, Seizure, fecal impaction, dehydration Current Diet Promote at 60ml/hr Labs/Tests No new labs Pertinent Medications Reviewed Height 5 ft 2 in Weight 37.195 kg [place] Body Weight (kg) 50.00 BMI 15.0 Weight Status Underweight Subjective/Other Information Pt was extubated yesterday, [employer] consulted for today. TF not running. Dobhoff is planned to be placed today. Change TF to [place] 1.2 at 50ml/hr Percent of energy/protein needs met: 0%/0% Burn Absent Trauma Absent Current % PO Negligible Minimum of two criteria No #1 Nutrition Diagnosis Inadequate oral intake Diagnosis Progress(for reassessment Continues documentation) Is patient on ventilator? No Is Patient Ambulatory and/or Out of Bed No [facility] 1032.324 Kcal/Kg value to use for calculation 42 Approximate Energy Requirements Using 1562 kcal/Kg Calculation Used for Recommendations Kcal/kg Additional Notes PRO: 37-45g/day (1.0-1.2g/kg) Fluid: Nutrition Intervention Change Diet Order: TF diet Nutrition Support: Change to Jevity 1.2 at 50ml/ hr Water flush 100ml q4hr Kcal 1,440 Protein (gm) 67 Fluid (mL) 968 Goal #1 Restart TF once Dobhoff placed Goal #2 Meet at least 80% of energy and protein needs Anticipated Discharge Needs: Unable to determine at this time Follow-Up By: 01/23/19 Additional Comments F/U for TF rate/tolerance
[2019-01-19] MEDS: HALOPERIDOL 5 MG TAB PO SCH (21:50)
[2019-01-20] MEDS: LORazepam 1 MG TAB PO SCH ×3 (00:10→21:10)
[2019-01-20] MEDS: IPRATROPIUM/ALBUTEROL SULFATE 3 ML AMPUL.NEB IH SCH ×4 (07:47→20:31)
[2019-01-20] MEDS: POLYETHYLENE GLYCOL 3350 17 GM POWDER PO SCH ×2 (09:45→21:11)
[2019-01-20] MEDS: FAMOTIDINE 20 MG TAB PO SCH ×2 (09:59→21:10)
[2019-01-20] MEDS: HEPARIN 5,000 UNIT/1 ML VIAL SUB-Q SCH ×2 (09:59→21:11)
--- NOTE | 2019-01-20 10:09 | Progress Note ---
Assessment and Plan Acute Hypoxemic and Hypercapnic Respiratory failure requiring intubation Anemia (Normocytic) Acute Encephalopathy Cerebral palsy Fecal impaction - Stop Trazodone re: letheragy - get stat ABG and address - give daytime breaks off BIPAP as tolerated if pH well compensated - continue Robinul & scopolamine for secretion control - tapered off lactulose - continue aspiration precautions (HOB > 40 degrees) - continue to wean FIO2 for O2 sats >90% - continue bronchodilators with pulmonary hygiene per RT - prn CXR's & ABG's at this point - continue enteral nutrition and advance to goal rate as tolerated - ST evaluation shortly - continue agitation management / Pain management per CPOT - follow clinically off AB's - continue VTE prophylaxis - continue stress ulcer prophylaxis - continue accuchecks with glycemic control for SSI (While critically ill target blood glucose of 140-180 mg/dL; avoid hypoglycemia) - Continue mobility protocol for pressure ulcer prevention - Continue to monitor hemodynamics closely - Monitor electrolyte profile closely and replete as indicated - continue chronic home medications per attending and as clinically indicated - continue other care per attending / other consultants CONDITION: CRITICAL PROGNOSIS: GUARDED-POOR CODE STATUS: FULL CODE The high probability of a clinically significant, sudden or life-threatening deterioration of the [cardiac, respiratory & neurologic] system(s) required my full and direct attention, intervention and personal management. The aggregate critical care time was [35] minutes without overlap. Time includes spent on; [x] Data Review and interpretation [x] Patient assessment and monitoring of vital signs [x] Documentation [x] Medication orders and management Subjective Date of service: 01/20/19 Principal diagnosis: Ac Hypoxemic and Hypercapnic Resp failure; Anemia; Cerebral palsy Interval history: Patient is seen today for: Acute Hypoxemic and Hypercapnic Respiratory failure; Anemia; Acute Encephalopathy; Cerebral palsy; Fecal impaction Seen and examined at bedside; 24hour events reviewed; nursing and respiratory care staff consulted; no adverse overnight events reported to me; resting in bed; resting peacefully in bed; lethargic; remains on continuous BIPAP; no emesis or overt aspiration Objective Vital Signs - 12hr 01/19/19 01/19/19 01/19/19 22:38 23:00 23:20 Temperature Pulse Rate 98 H 99 H 99 H Pulse Rate [ Anterior Throughout] Pulse Rate [ Bilateral Throughout] Respiratory 15 20 20 Rate Respiratory Rate [Anterior Throughout] Respiratory Rate [Bilateral Throughout] Blood Pressure 110/77 121/79 121/79 O2 Sat by Pulse 100 97 95 Oximetry 01/19/19 01/20/19 01/20/19 23:47 00:00 00:10 Temperature 97.4 F L Pulse Rate 97 H 97 H Pulse Rate [ Anterior Throughout] Pulse Rate [ Bilateral Throughout] Respiratory 17 Rate Respiratory Rate [Anterior Throughout] Respiratory Rate [Bilateral Throughout] Blood Pressure 132/87 O2 Sat by Pulse 95 100 Oximetry 01/20/19 01/20/19 01/20/19 01:00 01:30 02:00 Temperature Pulse Rate 111 H 97 H 102 H Pulse Rate [ Anterior Throughout] Pulse Rate [ Bilateral Throughout] Respiratory 19 20 Rate Respiratory Rate [Anterior Throughout] Respiratory Rate [Bilateral Throughout] Blood Pressure 114/78 127/82 O2 Sat by Pulse 79 L 100 90 Oximetry 01/20/19 01/20/19 01/20/19 03:00 03:27 03:30 Temperature Pulse Rate 96 H 104 H Pulse Rate [ Anterior Throughout] Pulse Rate [ Bilateral Throughout] Respiratory 10 L 25 H Rate Respiratory Rate [Anterior Throughout] Respiratory Rate [Bilateral Throughout] Blood Pressure 128/85 128/85 O2 Sat by Pulse 92 100 100 Oximetry 01/20/19 01/20/19 01/20/19 04:00 05:00 06:00 Temperature 98.1 F Pulse Rate 95 H 103 H 105 H Pulse Rate [ Anterior Throughout] Pulse Rate [ Bilateral Throughout] Respiratory 11 L 20 19 Rate Respiratory Rate [Anterior Throughout] Respiratory Rate [Bilateral Throughout] Blood Pressure 138/86 132/79 134/81 O2 Sat by Pulse 100 96 100 Oximetry 01/20/19 01/20/19 01/20/19 07:00 07:48 07:52 Temperature Pulse Rate 105 H 107 H Pulse Rate [ 110 H Anterior Throughout] Pulse Rate [ 110 H Bilateral Throughout] Respiratory 20 20 Rate Respiratory 23 Rate [Anterior Throughout] Respiratory 22 Rate [Bilateral Throughout] Blood Pressure 145/86 128/82 O2 Sat by Pulse 100 100 Oximetry 01/20/19 08:00 Temperature 99.4 F Pulse Rate 104 H Pulse Rate [ Anterior Throughout] Pulse Rate [ Bilateral Throughout] Respiratory 19 Rate Respiratory Rate [Anterior Throughout] Respiratory Rate [Bilateral Throughout] Blood Pressure 127/79 O2 Sat by Pulse 100 Oximetry Constitutional: no acute distress, other (\) Eyes: non-icteric ENT: oropharynx moist, other (BIPAP) Neck: supple, no lymphadenopathy, no JVD Effort: mildly labored Ascultation: Bilateral: rhonchi, other (referred upper airway sounds) Percussion: Bilateral: not dull Cardiovascular: regular rate and rhythm, other (S1,S2) Gastrointestinal: normoactive bowel sounds, soft, non-tender, non-distended Integumentary: rash Extremities: no cyanosis, no edema, pulses normal, no ischemia or petechiae Neurologic: non-focal exam (grossly), pupils equal and round, other (lethargic) Psychiatric: other (unable to assess) CBC and BMP: 01/14/19 05:13 01/14/19 05:13 ABG, PT/INR, D-dimer: ABG POC ABG pH 7.442 (7.35-7.45) 01/19/19 11:55 POC ABG pCO2 41.8 (35-45) 01/19/19 11:55 POC ABG pO2 52 (80-105) L 01/19/19 11:55 POC ABG HCO3 28.5 (22-26 mml/L) 01/19/19 11:55 POC ABG Total CO2 30 (23-27mmol/L) 01/19/19 11:55 POC ABG O2 Sat 88 01/19/19 11:55 PT/INR, D-dimer PT 14.2 Sec. (12.2-14.9) 01/14/19 05:13 INR 1.11 (0.87-1.13) 01/14/19 05:13 D-Dimer 135.00 ng/mlDDU (0-234) 01/13/19 00:27 Abnormal lab findings: Abnormal Labs 01/13/19 01/13/19 01/13/19 00:27 00:27 00:27 RBC 3.36 L Hgb Hct Lymph % (Auto) 4.2 L [place] % (Auto) Lymph # 0.3 L Seg Neutrophils % 89.1 H APTT POC ABG pH POC ABG pCO2 POC ABG pO2 VBG pH 7.178 L* Chloride 109.1 H Carbon Dioxide 20 L BUN 29 H Creatinine Glucose 175 H POC Glucose Lactic Acid Calcium 7.8 L CK-MB (CK-2) 7.7 H CK-MB (CK-2) Rel Index 7.2 H Total Protein 6.0 L Albumin 3.3 L Ur Specific [place] 01/13/19 01/13/19 01/13/19 00:27 02:14 02:22 RBC Hgb Hct Lymph % (Auto) [place] % (Auto) Lymph # Seg Neutrophils % APTT POC ABG pH 7.276 L POC ABG pCO2 49.4 H POC ABG pO2 156 H VBG pH Chloride Carbon Dioxide BUN Creatinine Glucose POC Glucose Lactic Acid 2.90 H* 0.30 L Calcium CK-MB (CK-2) CK-MB (CK-2) Rel Index Total Protein Albumin Ur Specific [place] 01/13/19 01/13/19 01/14/19 02:22 02:34 05:13 RBC 2.96 L Hgb 9.3 L Hct 27.4 L Lymph % (Auto) [place] % (Auto) 11.9 H Lymph # Seg Neutrophils % APTT 39.4 H POC ABG pH POC ABG pCO2 POC ABG pO2 VBG pH Chloride Carbon Dioxide BUN Creatinine Glucose POC Glucose Lactic Acid Calcium CK-MB (CK-2) CK-MB (CK-2) Rel Index Total Protein Albumin Ur Specific [place] 1.051 H 01/14/19 01/14/19 01/15/19 05:13 06:06 04:31 RBC Hgb Hct Lymph % (Auto) [place] % (Auto) Lymph # Seg Neutrophils % APTT POC ABG pH POC ABG pCO2 33.7 L POC ABG pO2 121 H 114 H VBG pH Chloride Carbon Dioxide 21 L BUN 22 H Creatinine 0.6 L Glucose 62 L POC Glucose Lactic Acid Calcium 8.0 L CK-MB (CK-2) CK-MB (CK-2) Rel Index Total Protein Albumin Ur Specific [place] 01/15/19 01/15/19 01/16/19 08:51 10:07 02:56 RBC Hgb Hct Lymph % (Auto) [place] % (Auto) Lymph # Seg Neutrophils % APTT POC ABG pH POC ABG pCO2 POC ABG pO2 VBG pH Chloride Carbon Dioxide BUN Creatinine Glucose POC Glucose < 40 L 158 H 142 H Lactic Acid Calcium CK-MB (CK-2) CK-MB (CK-2) Rel Index Total Protein Albumin Ur Specific [place] 01/16/19 01/17/19 01/17/19 17:54 04:06 04:23 RBC Hgb Hct Lymph % (Auto) [place] % (Auto) Lymph # Seg Neutrophils % APTT POC ABG pH POC ABG pCO2 33.7 L POC ABG pO2 VBG pH Chloride Carbon Dioxide BUN Creatinine Glucose POC Glucose 123 H 161 H Lactic Acid Calcium CK-MB (CK-2) CK-MB (CK-2) Rel Index Total Protein Albumin Ur Specific [place] 01/17/19 01/18/19 01/19/19 11:20 04:34 11:55 RBC Hgb Hct Lymph % (Auto) [place] % (Auto) Lymph # Seg Neutrophils % APTT POC ABG pH 7.498 H 7.484 H POC ABG pCO2 32.1 L POC ABG pO2 121 H 52 L VBG pH Chloride Carbon Dioxide BUN Creatinine Glucose POC Glucose Lactic Acid Calcium CK-MB (CK-2) CK-MB (CK-2) Rel Index Total Protein Albumin Ur Specific [place] 01/19/19 01/20/19 23:45 06:30 RBC Hgb Hct Lymph % (Auto) [place] % (Auto) Lymph # Seg Neutrophils % APTT POC ABG pH POC ABG pCO2 POC ABG pO2 VBG pH Chloride Carbon Dioxide BUN Creatinine Glucose POC Glucose 128 H 107 H Lactic Acid Calcium CK-MB (CK-2) CK-MB (CK-2) Rel Index Total Protein Albumin Ur Specific [place] Chest x-ray: other (none today) Allied health notes reviewed: RT
[2019-01-20] MEDS: QUEtiapine 200 MG TAB PO SCH (10:16)
[2019-01-20] MEDS: traZODone 100 MG TAB PO SCH (10:16)
--- NOTE | 2019-01-20 10:23 | Progress Note ---
Assessment and Plan Assessment and plan: Respiratory failure requiring intubation Cont vent weaning per protocols. Pulm following Extubated , On Bipap,supportive care. Metabolic encephalopathy : Multifactorial, supportive care Cerebral palsy Patient has known history of cerebral palsy. Fecal impaction Resolved, stool softeners as needed. Moderate malnutrition /hypoalbuminemia Nutrition supplements, supportive care DVT prophylaxis, On Heparin SQ Full code status Continue to Monitor clinically in the ICU and adjust the management as needed . The high probability of a clinically significant, sudden or life threatening deterioration of the [respiratory neurological] system(s) required my full and direct attention, intervention and personal management. The aggregate critical care time was [32] minutes. This time is in addition to time spent performing reported procedures but includes the following: [x] Data Review and interpretation [x] Patient assessment and monitoring of vital signs [x] Documentation [x] Medication orders and management History Interval history: Patient seen and examined medical records reviewed Patient is in mild distress on BiPAP Lethargic, vital signs reviewed Hospitalist Physical - Constitutional Vitals: Temp Pulse Resp BP Pulse Ox 99.4 F 111 H 12 105/65 100 01/20/19 08:00 01/20/19 10:00 01/20/19 10:00 01/20/19 10:00 01/20/19 10:00 General appearance: Present: mild distress, cachectic, other (lethargic on BiPAP) - EENT Eyes: Present: PERRL, EOM intact - Neck Neck: Present: supple, normal ROM, carotid bruits - Respiratory Respiratory effort: normal Respiratory: bilateral: diminished, rhonchi, negative: rales, wheezing - Cardiovascular Rhythm: regular Heart Sounds: Present: S1 & S2 - Extremities Extremities: no ischemia, No edema - Abdominal General gastrointestinal: soft, non-tender, non-distended, normal bowel sounds - Integumentary Integumentary: Present: clear, warm - Psychiatric Psychiatric: other (noncommunicative) - Neurologic Neurologic: moves all extremities, other (on BiPAP) Results - Labs CBC & Chem 7: 01/14/19 05:13 01/14/19 05:13 Labs: Laboratory Last Values WBC 6.1 K/mm3 (4.5-11.0) 01/14/19 05:13 RBC 2.96 M/mm3 (3.65-5.03) L 01/14/19 05:13 Hgb 9.3 gm/dl (10.1-14.3) L 01/14/19 05:13 Hct 27.4 % (30.3-42.9) L 01/14/19 05:13 MCV 93 fl (79-97) 01/14/19 05:13 MCH 31 pg (28-32) 01/14/19 05:13 MCHC 34 % (30-34) 01/14/19 05:13 RDW 14.3 % (13.2-15.2) 01/14/19 05:13 Plt Count 155 K/mm3 (140-440) 01/14/19 05:13 Lymph % (Auto) 22.2 % (13.4-35.0) 01/14/19 05:13 [place] % (Auto) 11.9 % (0.0-7.3) H 01/14/19 05:13 Eos % (Auto) 0.9 % (0.0-4.3) 01/14/19 05:13 Baso % (Auto) 0.4 % (0.0-1.8) 01/14/19 05:13 Lymph # 1.4 K/mm3 (1.2-5.4) 01/14/19 05:13 [place] # 0.7 K/mm3 (0.0-0.8) 01/14/19 05:13 Eos # 0.1 K/mm3 (0.0-0.4) 01/14/19 05:13 Baso # 0.0 K/mm3 (0.0-0.1) 01/14/19 05:13 Seg Neutrophils % 64.6 % (40.0-70.0) 01/14/19 05:13 Seg Neutrophils # 3.9 K/mm3 (1.8-7.7) 01/14/19 05:13 PT 14.2 Sec. (12.2-14.9) 01/14/19 05:13 INR 1.11 (0.87-1.13) 01/14/19 05:13 APTT 31.9 Sec. (24.2-36.6) 01/14/19 05:13 D-Dimer 135.00 ng/mlDDU (0-234) 01/13/19 00:27 POC ABG pH 7.442 (7.35-7.45) 01/19/19 11:55 POC ABG pCO2 41.8 (35-45) 01/19/19 11:55 POC ABG pO2 52 (80-105) L 01/19/19 11:55 POC ABG HCO3 28.5 (22-26 mml/L) 01/19/19 11:55 POC ABG Total CO2 30 (23-27mmol/L) 01/19/19 11:55 POC ABG O2 Sat 88 01/19/19 11:55 POC ABG Base Excess 4 ((-2) - (+3)mmol/L) 01/19/19 11:55 VBG pH 7.178 (7.320-7.420) L* 01/13/19 00:27 FiO2 45 % 01/19/19 11:55 Sodium 140 mmol/L (137-145) 01/14/19 05:13 Potassium 4.0 mmol/L (3.6-5.0) 01/14/19 05:13 Chloride 107.0 mmol/L (98-107) 01/14/19 05:13 Carbon Dioxide 21 mmol/L (22-30) L 01/14/19 05:13 Anion Gap 16 mmol/L 01/14/19 05:13 BUN 22 mg/dL (7-17) H 01/14/19 05:13 Creatinine 0.6 mg/dL (0.7-1.2) L 01/14/19 05:13 Estimated GFR > 60 ml/min 01/14/19 05:13 BUN/Creatinine Ratio 37 % 01/14/19 05:13 Glucose 62 mg/dL (65-100) L 01/14/19 05:13 POC Glucose 107 (70-105) H 01/20/19 06:30 Lactic Acid 0.30 mmol/L (0.7-2.0) L 01/13/19 02:22 Calcium 8.0 mg/dL (8.4-10.2) L 01/14/19 05:13 Total Bilirubin < 0.20 mg/dL (0.1-1.2) 01/13/19 00:27 AST 33 units/L (5-40) 01/13/19 00:27 ALT 28 units/L (7-56) 01/13/19 00:27 Alkaline Phosphatase 85 units/L (35-129) 01/13/19 00:27 Ammonia 25.0 umol/L (25-60) 01/13/19 00:27 Total Creatine Kinase 106 units/L (30-135) 01/13/19 00:27 CK-MB (CK-2) 7.7 ng/mL (0.0-4.0) H 01/13/19 00:27 CK-MB (CK-2) Rel Index 7.2 (0-4) H 01/13/19 00:27 Troponin T < 0.010 ng/mL (0.00-0.029) 01/13/19 00:27 NT-Pro-B Natriuret Pep 52.36 pg/mL (0-900) 01/13/19 00:27 Total Protein 6.0 g/dL (6.3-8.2) L 01/13/19 00:27 Albumin 3.3 g/dL (3.9-5) L 01/13/19 00:27 Albumin/Globulin Ratio 1.2 % 01/13/19 00:27 Urine Color Yellow (Yellow) 01/13/19 02:34 Urine Turbidity Slightly-cloudy (Clear) 01/13/19 02:34 Urine pH 5.0 (5.0-7.0) 01/13/19 02:34 Ur Specific [place] 1.051 (1.003-1.030) H 01/13/19 02:34 Urine Protein <15 mg/dl mg/dL (Negative) 01/13/19 02:34 Urine Glucose (UA) 50 mg/dL (Negative) 01/13/19 02:34 Urine Ketones Neg mg/dL (Negative) 01/13/19 02:34 Urine Blood Neg (Negative) 01/13/19 02:34 Urine Nitrite Neg (Negative) 01/13/19 02:34 Urine Bilirubin Neg (Negative) 01/13/19 02:34 Urine Urobilinogen < 2.0 mg/dL (<2.0) 01/13/19 02:34 Ur Leukocyte Esterase Neg (Negative) 01/13/19 02:34 Urine WBC (Auto) < 1.0 /HPF (0.0-6.0) 01/13/19 02:34 Urine RBC (Auto) < 1.0 /HPF (0.0-6.0) 01/13/19 02:34 U Epithel Cells (Auto) < 1.0 /HPF (0-13.0) 01/13/19 02:34 Urine Bacteria (Auto) 1+ /HPF (Negative) 01/13/19 02:34 Urine Mucus 1+ /HPF 01/13/19 02:34 Active Medications - Current Medications Current Medications: Generic Name Dose Route Start Last Admin Trade Name Freq PRN Reason Stop Dose Admin Acetaminophen 650 mg 01/13/19 04:[address] Q6H PRN Pain MILD(1-3)/Fever >100.5/WOOD Albuterol/Ipratropium 1 ampul 01/19/19 12:00 01/20/19 07:47 Duoneb *Not For Prn Use* IH 1 ampul QIDRT JOAN Administration Lipase/Protease/Amylase 1 each 01/19/19 13:12 Pancrenicolasa Schwartz 10,500 Unit FEEDTUBE PRN PRN For Clogged Feeding Tube Bisacodyl 10 mg 01/13/19 04:55 01/16/19 11:[address] 10 mg QDAY PRN Administration constipation unrelieved by MOM Dextrose 25 ml 01/15/19 08:51 01/15/19 09:00 D50w (25gm) Syringe IV 25 ml Q30MIN PRN Administration Hypoglycemia Protocol Famotidine 20 mg 01/17/19 10:00 01/20/19 09:59 Pepcid PO 20 mg BID JOAN Administration Haloperidol 5 mg 01/15/19 22:00 01/19/19 21:50 Haldol PO Not Given QHS [facility] Heparin Sodium (Porcine) 5,000 unit 01/15/19 22:00 01/20/19 09:59 Heparin SUB-Q 5,000 unit Q12HR JOAN Administration Hydralazine HCl 10 mg 01/18/19 18:48 01/18/19 19:36 Apresoline IV 10 mg Q3HR PRN Administration SBP >/=160 Hydrophilic Ointment 1 applic 01/12/19 23:54 Vaseline Lip Therapy TP Q2HR PRN Dry Lips Lorazepam 1 mg 01/15/19 08:00 01/20/19 09:11 Ativan PO Not Given Q8H [facility] Multi-Ingred Cream/Lotion/Oil/Oint 1 applic 01/12/19 23:54 Artificial Tears Ophth Oint OU Q4HR PRN Dry Eye(s) Ondansetron HCl 4 mg 01/13/19 04:55 Zofran IV Q8H PRN Nausea And Vomiting Polyethylene Glycol 17 gm 01/18/19 11:00 01/20/19 09:45 Miralax 3350 PO 17 gm BID JOAN Administration Quetiapine Fumarate 600 mg 01/15/19 10:00 01/20/19 10:16 Seroquel PO Not Given DAILY JOAN Scopolamine 1 each 01/15/19 14:00 01/18/19 14:48 Transderm-Scop TD 1 each Q3D JOAN Administration Simple Syrup 15 ml 01/19/19 13:12 Simple Syrup FEEDTUBE PRN PRN Hypoglycemia Simple Syrup 30 ml 01/19/19 13:12 Simple Syrup FEEDTUBE PRN PRN Hypoglycemia Sodium Bicarbonate 325 mg 01/19/19 13:12 Sodium Bicarbonate FEEDTUBE PRN PRN For Clogged Feeding Tube Sodium Chloride 10 ml 01/13/19 10:00 01/19/19 22:43 Sodium Chloride Flush Syringe 10 Ml IV 10 ml BID JOAN Administration Sodium Chloride 10 ml 01/13/19 04:55 Sodium Chloride Flush Syringe 10 Ml IV PRN PRN LINE FLUSH Trazodone HCl 100 mg 01/15/19 10:00 01/20/19 10:16 Desyrel PO Not Given DAILY JOAN Nutrition/Malnutrition Assess - Dietary Evaluation Nutrition/Malnutrition Findings: Nutrition Notes Start: 01/13/19 12:10 Freq: Status: Active Protocol: Document 01/19/19 10:58 CC (Rec: 01/19/19 11:13 CC [id number]) Co-Sign 01/19/19 10:58 LP Nutrition Notes Initial or Follow up Reassessment Current Diagnosis Respiratory Failure Other Pertinent Diagnosis Cerbral palsy, Seizure, fecal impaction, dehydration Current Diet Promote at 60ml/hr Labs/Tests No new labs Pertinent Medications Reviewed Height 5 ft 2 in Weight 37.195 kg [place] Body Weight (kg) 50.00 BMI 15.0 Weight Status Underweight Subjective/Other Information Pt was extubated yesterday, [employer] MEMBER consulted for today. TF not running. Dobhoff is planned to be placed today. Change TF to Jevity 1.2 at 50ml/hr Percent of energy/protein needs met: 0%/0% Burn Absent Trauma Absent Current % PO Negligible Minimum of two criteria No #1 Nutrition Diagnosis Inadequate oral intake Diagnosis Progress(for reassessment Continues documentation) Is patient on ventilator? No Is Patient Ambulatory and/or Out of Bed No REE-([facility]-confined to bed) 1032.324 Kcal/Kg value to use for calculation 42 Approximate Energy Requirements Using 1562 kcal/Kg Calculation Used for Recommendations Kcal/kg Additional Notes PRO: 37-45g/day (1.0-1.2g/kg) Fluid: Nutrition Intervention Change Diet Order: TF diet Nutrition Support: Change to Jevity 1.2 at 50ml/ hr Water flush 100ml q4hr Kcal 1,440 Protein (gm) 67 Fluid (mL) 968 Goal #1 Restart TF once Dobhoff placed Goal #2 Meet at least 80% of energy and protein needs Anticipated Discharge Needs: Unable to determine at this time Follow-Up By: 01/23/19 Additional Comments F/U for TF rate/tolerance
[2019-01-20] MEDS: HALOPERIDOL 5 MG TAB PO SCH (21:10)
[2019-01-21 05:09] LABS: Basophils % (Auto) 0.2 % (0.0-1.8); Eosinophils % (Auto) 0.2 % (0.0-4.3); Hematocrit 26.7 % (30.3-42.9); Hemoglobin 8.9 gm/dl (10.1-14.3); Lymphocytes # (Auto) 0.7 K/mm3 (1.2-5.4); Mean Corpuscular HGB Conc 33 % (30-34); Mean Corpuscular Volume 93 fl (79-97); Monocytes # (Auto) 0.5 K/mm3 (0.0-0.8); Monocytes % (Auto) 9.6 % (0.0-7.3); Platelet Count 234 K/mm3 (140-440); Red Blood Count 2.89 M/mm3 (3.65-5.03); Red Cell Distribution Width 13.5 % (13.2-15.2)
[2019-01-21 05:40] LABS: Alanine Aminotransferase 102 units/L (7-56); Albumin 2.2 g/dL (3.9-5); BUN/Creatinine Ratio 45; Blood Urea Nitrogen 18 mg/dL (7-17); Hemolysis Index 3
[2019-01-21] MEDS: IPRATROPIUM/ALBUTEROL SULFATE 3 ML AMPUL.NEB IH SCH ×4 (08:32→19:37)
--- NOTE | 2019-01-21 08:39 | Progress Note ---
Assessment and Plan Assessment and plan: Metabolic encephalopathy : Multifactorial, supportive care Respiratory failure requiring intubation Extubated , On Bipap,supportive care. Pulm following, continue supportive care Transaminitis ; Monitor LFTs closely, consult GI if needed Cerebral palsy Patient has known history of cerebral palsy. Fecal impaction Resolved, stool softeners as needed. Severe malnutrition /hypoalbuminemia Nutrition supplements, dietitian following Continue tube feeding DVT prophylaxis, On Heparin SQ Full code status. Patient is critically ill with full poor prognosis Continue to Monitor clinically in the ICU and adjust the management as needed . The high probability of a clinically significant, sudden or life threatening deterioration of the [respiratory neurological] system(s) required my full and direct attention, intervention and personal management. The aggregate critical care time was [31] minutes. This time is in addition to time spent performing reported procedures but includes the following: [x] Data Review and interpretation [x] Patient assessment and monitoring of vital signs [x] Documentation [x] Medication orders and management History Interval history: Patient seen and examined this morning medical records reviewed Patient is patient is having loose stool secondary to MiraLAX Patient was getting for constipation Patient is Lethargic, on BiPAP, noncommunicative No new overnight events reported by the nursing staff Vital signs reviewed Hospitalist Physical - Constitutional Vitals: Temp Pulse Resp BP Pulse Ox 98.2 F 90 16 122/75 100 01/21/19 04:36 01/21/19 08:33 01/21/19 08:33 01/21/19 08:00 01/21/19 08:00 General appearance: Present: mild distress, cachectic, other (lethargic on BiPAP) - EENT Eyes: Present: PERRL, EOM intact - Neck Neck: Present: supple, normal ROM - Respiratory Respiratory effort: normal Respiratory: bilateral: diminished, rhonchi, negative: rales, wheezing - Cardiovascular Rhythm: regular Heart Sounds: Present: S1 & S2 - Extremities Extremities: no ischemia, No edema - Abdominal General gastrointestinal: soft, non-tender, non-distended, normal bowel sounds - Integumentary Integumentary: Present: clear, warm - Psychiatric Psychiatric: appropriate mood/affect, cooperative - Neurologic Neurologic: CNII-XII intact, moves all extremities Results - Labs CBC & Chem 7: 01/21/19 04:47 01/21/19 04:47 Labs: Laboratory Last Values WBC 5.5 K/mm3 (4.5-11.0) 01/21/19 04:47 RBC 2.89 M/mm3 (3.65-5.03) L 01/21/19 04:47 Hgb 8.9 gm/dl (10.1-14.3) L 01/21/19 04:47 Hct 26.7 % (30.3-42.9) L 01/21/19 04:47 MCV 93 fl (79-97) 01/21/19 04:47 MCH 31 pg (28-32) 01/21/19 04:47 MCHC 33 % (30-34) 01/21/19 04:47 RDW 13.5 % (13.2-15.2) 01/21/19 04:47 Plt Count 234 K/mm3 (140-440) 01/21/19 04:47 Lymph % (Auto) 13.0 % (13.4-35.0) L 01/21/19 04:47 [place] % (Auto) 9.6 % (0.0-7.3) H 01/21/19 04:47 Eos % (Auto) 0.2 % (0.0-4.3) 01/21/19 04:47 Baso % (Auto) 0.2 % (0.0-1.8) 01/21/19 04:47 Lymph # 0.7 K/mm3 (1.2-5.4) L 01/21/19 04:47 [place] # 0.5 K/mm3 (0.0-0.8) 01/21/19 04:47 Eos # 0.0 K/mm3 (0.0-0.4) 01/21/19 04:47 Baso # 0.0 K/mm3 (0.0-0.1) 01/21/19 04:47 Seg Neutrophils % 77.0 % (40.0-70.0) H 01/21/19 04:47 Seg Neutrophils # 4.2 K/mm3 (1.8-7.7) 01/21/19 04:47 PT 14.2 Sec. (12.2-14.9) 01/14/19 05:13 INR 1.11 (0.87-1.13) 01/14/19 05:13 APTT 31.9 Sec. (24.2-36.6) 01/14/19 05:13 D-Dimer 135.00 ng/mlDDU (0-234) 01/13/19 00:27 POC ABG pH 7.518 (7.35-7.45) H 01/20/19 16:07 POC ABG pCO2 37.5 (35-45) 01/20/19 16:07 POC ABG pO2 210 (80-105) H 01/20/19 16:07 POC ABG HCO3 30.4 (22-26 mml/L) 01/20/19 16:07 POC ABG Total CO2 32 (23-27mmol/L) 01/20/19 16:07 POC ABG O2 Sat 100 01/20/19 16:07 POC ABG Base Excess 8 ((-2) - (+3)mmol/L) 01/20/19 16:07 VBG pH 7.178 (7.320-7.420) L* 01/13/19 00:27 FiO2 50 % 01/20/19 16:07 Sodium 134 mmol/L (137-145) L 01/21/19 04:47 Potassium 3.7 mmol/L (3.6-5.0) 01/21/19 04:47 Chloride 96.9 mmol/L (98-107) L 01/21/19 04:47 Carbon Dioxide 25 mmol/L (22-30) 01/21/19 04:47 Anion Gap 16 mmol/L 01/21/19 04:47 BUN 18 mg/dL (7-17) H 01/21/19 04:47 Creatinine 0.4 mg/dL (0.7-1.2) L 01/21/19 04:47 Estimated GFR > 60 ml/min 01/21/19 04:47 BUN/Creatinine Ratio 45 % 01/21/19 04:47 Glucose 138 mg/dL (65-100) H 01/21/19 04:47 POC Glucose 138 (70-105) H 01/21/19 04:36 Lactic Acid 0.30 mmol/L (0.7-2.0) L 01/13/19 02:22 Calcium 8.0 mg/dL (8.4-10.2) L 01/21/19 04:47 Magnesium 2.10 mg/dL (1.7-2.3) 01/21/19 04:47 Total Bilirubin < 0.20 mg/dL (0.1-1.2) 01/21/19 04:47 AST 171 units/L (5-40) H 01/21/19 04:47 ALT 102 units/L (7-56) H 01/21/19 04:47 Alkaline Phosphatase 107 units/L (35-129) 01/21/19 04:47 Ammonia 25.0 umol/L (25-60) 01/13/19 00:27 Total Creatine Kinase 106 units/L (30-135) 01/13/19 00:27 CK-MB (CK-2) 7.7 ng/mL (0.0-4.0) H 01/13/19 00:27 CK-MB (CK-2) Rel Index 7.2 (0-4) H 01/13/19 00:27 Troponin T < 0.010 ng/mL (0.00-0.029) 01/13/19 00:27 NT-Pro-B Natriuret Pep 52.36 pg/mL (0-900) 01/13/19 00:27 Total Protein 5.6 g/dL (6.3-8.2) L 01/21/19 04:47 Albumin 2.2 g/dL (3.9-5) L 01/21/19 04:47 Albumin/Globulin Ratio 0.6 % 01/21/19 04:47 Urine Color Yellow (Yellow) 01/13/19 02:34 Urine Turbidity Slightly-cloudy (Clear) 01/13/19 02:34 Urine pH 5.0 (5.0-7.0) 01/13/19 02:34 Ur Specific [place] 1.051 (1.003-1.030) H 01/13/19 02:34 Urine Protein <15 mg/dl mg/dL (Negative) 01/13/19 02:34 Urine Glucose (UA) 50 mg/dL (Negative) 01/13/19 02:34 Urine Ketones Neg mg/dL (Negative) 01/13/19 02:34 Urine Blood Neg (Negative) 01/13/19 02:34 Urine Nitrite Neg (Negative) 01/13/19 02:34 Urine Bilirubin Neg (Negative) 01/13/19 02:34 Urine Urobilinogen < 2.0 mg/dL (<2.0) 01/13/19 02:34 Ur Leukocyte Esterase Neg (Negative) 01/13/19 02:34 Urine WBC (Auto) < 1.0 /HPF (0.0-6.0) 01/13/19 02:34 Urine RBC (Auto) < 1.0 /HPF (0.0-6.0) 01/13/19 02:34 U Epithel Cells (Auto) < 1.0 /HPF (0-13.0) 01/13/19 02:34 Urine Bacteria (Auto) 1+ /HPF (Negative) 01/13/19 02:34 Urine Mucus 1+ /HPF 01/13/19 02:34 Active Medications - Current Medications Current Medications: Generic Name Dose Route Start Last Admin Trade Name Freq PRN Reason Stop Dose Admin Acetaminophen 650 mg 01/13/19 04:55 Tylenol [place] Q6H PRN Pain MILD(1-3)/Fever >100.5/WOOD Albuterol/Ipratropium 1 ampul 01/19/19 12:00 01/21/19 08:32 Duoneb *Not For Prn Use* IH 1 ampul QIDRT JOAN Administration Lipase/Protease/Amylase 1 each 01/19/19 13:12 Pancreazsundeep Schwartz 10,500 Unit FEEDTUBE PRN PRN For Clogged Feeding Tube Bisacodyl 10 mg 01/13/19 04:55 01/16/19 11:30 Dulcolax [place] 10 mg QDAY PRN Administration constipation unrelieved by MOM Dextrose 25 ml 01/15/19 08:51 01/15/19 09:00 D50w (25gm) Syringe IV 25 ml Q30MIN PRN Administration Hypoglycemia Protocol Famotidine 20 mg 01/17/19 10:00 01/20/19 21:10 Pepcid PO 20 mg BID JOAN Administration Haloperidol 5 mg 01/15/19 22:00 01/20/19 21:10 Haldol PO Not Given QHS JOAN Heparin Sodium (Porcine) 5,000 unit 01/15/19 22:00 01/20/19 21:11 Heparin SUB-Q 5,000 unit Q12HR JOAN Administration Hydralazine HCl 10 mg 01/18/19 18:48 01/18/19 19:36 Apresoline IV 10 mg Q3HR PRN Administration SBP >/=160 Hydrophilic Ointment 1 applic 01/12/19 23:54 Vaseline Lip Therapy TP Q2HR PRN Dry Lips Lorazepam 1 mg 01/20/19 22:00 01/20/19 21:10 Ativan PO 1 mg BID JOAN Administration Multi-Ingred Cream/Lotion/Oil/Oint 1 applic 01/12/19 23:54 Artificial Tears Ophth Oint OU Q4HR PRN Dry Eye(s) Ondansetron HCl 4 mg 01/13/19 04:55 Zofran IV Q8H PRN Nausea And Vomiting Polyethylene Glycol 17 gm 01/18/19 11:00 01/20/19 21:11 Miralax 3350 PO 17 gm BID JOAN Administration Quetiapine Fumarate 600 mg 01/15/19 10:00 01/20/19 10:16 Seroquel PO Not Given DAILY JOAN Scopolamine 1 each 01/15/19 14:00 01/18/19 14:48 Transderm-Scop TD 1 each Q3D JOAN Administration Simple Syrup 15 ml 01/19/19 13:12 Simple Syrup FEEDTUBE PRN PRN Hypoglycemia Simple Syrup 30 ml 01/19/19 13:12 Simple Syrup FEEDTUBE PRN PRN Hypoglycemia Sodium Bicarbonate 325 mg 01/19/19 13:12 Sodium Bicarbonate FEEDTUBE PRN PRN For Clogged Feeding Tube Sodium Chloride 10 ml 01/13/19 10:00 01/20/19 21:17 Sodium Chloride Flush Syringe 10 Ml IV 10 ml BID JOAN Administration Sodium Chloride 10 ml 01/13/19 04:55 Sodium Chloride Flush Syringe 10 Ml IV PRN PRN LINE FLUSH Nutrition/Malnutrition Assess - Dietary Evaluation Nutrition/Malnutrition Findings: Nutrition Notes Start: 01/13/19 12:10 Freq: Status: Active Protocol: Document 01/19/19 10:58 CC (Rec: 01/19/19 11:13 CC [id number]) Co-Sign 01/19/19 10:58 LP Nutrition Notes Initial or Follow up Reassessment Current Diagnosis Respiratory Failure Other Pertinent Diagnosis Cerbral palsy, Seizure, fecal impaction, dehydration Current Diet Promote at 60ml/hr Labs/Tests No new labs Pertinent Medications Reviewed Height 5 ft 2 in Weight 37.195 kg [place] Body Weight (kg) 50.00 BMI 15.0 Weight Status Underweight Subjective/Other Information Pt was extubated yesterday, [employer]LINE CONTENT EDITOR consulted for today. TF not running. Dobhoff is planned to be placed today. Change TF to Jevity 1.2 at 50ml/hr Percent of energy/protein needs met: 0%/0% Burn Absent Trauma Absent Current % PO Negligible Minimum of two criteria No #1 Nutrition Diagnosis Inadequate oral intake Diagnosis Progress(for reassessment Continues documentation) Is patient on ventilator? No Is Patient Ambulatory and/or Out of Bed No REE-([facility]-confined to bed) 1032.324 Kcal/Kg value to use for calculation 42 Approximate Energy Requirements Using 1562 kcal/Kg Calculation Used for Recommendations Kcal/kg Additional Notes PRO: 37-45g/day (1.0-1.2g/kg) Fluid: Nutrition Intervention Change Diet Order: TF diet Nutrition Support: Change to Jevity 1.2 at 50ml/ hr Water flush 100ml q4hr Kcal 1,440 Protein (gm) 67 Fluid (mL) 968 Goal #1 Restart TF once Dobhoff placed Goal #2 Meet at least 80% of energy and protein needs Anticipated Discharge Needs: Unable to determine at this time Follow-Up By: 01/23/19 Additional Comments F/U for TF rate/tolerance
[2019-01-21] MEDS: QUEtiapine 200 MG TAB PO SCH (10:11)
[2019-01-21] MEDS: HEPARIN 5,000 UNIT/1 ML VIAL SUB-Q SCH ×2 (10:11→21:54)
[2019-01-21] MEDS: FAMOTIDINE 20 MG TAB PO SCH ×2 (10:11→21:54)
[2019-01-21] MEDS: LORazepam 1 MG TAB PO SCH ×2 (10:11→21:56)
--- NOTE | 2019-01-21 14:14 | Progress Note ---
Assessment and Plan Acute Hypoxemic and Hypercapnic Respiratory failure requiring intubation Anemia (Normocytic) Acute Encephalopathy Cerebral palsy Fecal impaction - Stopped Trazodone re: letheragy - ABG reviewed and addressed; ventilation adequate - continue give daytime breaks off BIPAP as tolerated but keep in ICU - continue Robinul & scopolamine for secretion control - tapered off lactulose (follow ammonia level prn) - continue aspiration precautions (HOB > 40 degrees) - continue to wean FIO2 for O2 sats >90% - continue bronchodilators with pulmonary hygiene per RT - prn CXR's & ABG's at this point - continue enteral nutrition and advance to goal rate as tolerated - ST evaluation shortly - continue agitation management / Pain management per CPOT - follow clinically off AB's - continue VTE prophylaxis - continue stress ulcer prophylaxis - continue accuchecks with glycemic control for SSI (While critically ill target blood glucose of 140-180 mg/dL; avoid hypoglycemia) - Continue mobility protocol for pressure ulcer prevention - Continue to monitor hemodynamics closely - Monitor electrolyte profile closely and replete as indicated - continue chronic home medications per attending and as clinically indicated - continue other care per attending / other consultants CONDITION: CRITICAL PROGNOSIS: GUARDED-POOR CODE STATUS: FULL CODE The high probability of a clinically significant, sudden or life-threatening deterioration of the [cardiac, respiratory & neurologic] system(s) required my full and direct attention, intervention and personal management. The aggregate critical care time was [32] minutes without overlap. Time includes spent on; [x] Data Review and interpretation [x] Patient assessment and monitoring of vital signs [x] Documentation [x] Medication orders and management Subjective Date of service: 01/21/19 Principal diagnosis: Ac Hypoxemic and Hypercapnic Resp failure; Anemia; Cerebral palsy Interval history: Patient is seen today for: Acute Hypoxemic and Hypercapnic Respiratory failure; Anemia; Acute Encephalopathy; Cerebral palsy; Fecal impaction Seen and examined at bedside; 24hour events reviewed; nursing and respiratory care staff consulted; no adverse overnight events reported to me; resting in bed; still very lethargic; no emesis or overt aspiration; remains on supplemental oxygen Objective Vital Signs - 12hr 01/21/19 01/21/19 01/21/19 03:00 04:00 04:36 Temperature 98.2 F Pulse Rate 99 H 94 H 96 H Pulse Rate [ Anterior Throughout] Pulse Rate [ Bilateral Throughout] Pulse Rate [ From Monitor] Respiratory 26 H 16 14 Rate Respiratory Rate [Anterior Throughout] Respiratory Rate [Bilateral Throughout] Blood Pressure 124/80 114/77 O2 Sat by Pulse 100 100 100 Oximetry 01/21/19 01/21/19 01/21/19 05:00 06:00 07:00 Temperature Pulse Rate 94 H 92 H 86 Pulse Rate [ Anterior Throughout] Pulse Rate [ Bilateral Throughout] Pulse Rate [ From Monitor] Respiratory 20 20 20 Rate Respiratory Rate [Anterior Throughout] Respiratory Rate [Bilateral Throughout] Blood Pressure 126/84 125/80 120/82 O2 Sat by Pulse 100 100 Oximetry 01/21/19 01/21/19 01/21/19 08:00 08:33 08:56 Temperature 99.0 F Pulse Rate 87 90 Pulse Rate [ Anterior Throughout] Pulse Rate [ 90 Bilateral Throughout] Pulse Rate [ 87 From Monitor] Respiratory 20 22 Rate Respiratory Rate [Anterior Throughout] Respiratory 16 Rate [Bilateral Throughout] Blood Pressure 122/75 O2 Sat by Pulse 100 100 Oximetry 01/21/19 01/21/19 01/21/19 09:00 10:00 11:00 Temperature Pulse Rate 92 H 81 112 H Pulse Rate [ Anterior Throughout] Pulse Rate [ Bilateral Throughout] Pulse Rate [ From Monitor] Respiratory 18 22 11 L Rate Respiratory Rate [Anterior Throughout] Respiratory Rate [Bilateral Throughout] Blood Pressure 129/81 121/76 110/69 O2 Sat by Pulse 100 98 100 Oximetry 01/21/19 01/21/19 01/21/19 12:00 12:35 12:38 Temperature Pulse Rate 110 H 111 H Pulse Rate [ 112 H Anterior Throughout] Pulse Rate [ Bilateral Throughout] Pulse Rate [ 110 H From Monitor] Respiratory 17 Rate Respiratory 16 Rate [Anterior Throughout] Respiratory Rate [Bilateral Throughout] Blood Pressure 115/82 O2 Sat by Pulse 100 99 Oximetry Constitutional: no acute distress, other (\) Eyes: non-icteric ENT: oropharynx moist, other (BIPAP) Neck: supple, no lymphadenopathy, no JVD Effort: mildly labored Ascultation: Bilateral: rhonchi Percussion: Bilateral: not dull Cardiovascular: regular rate and rhythm, other (S1,S2) Gastrointestinal: normoactive bowel sounds, soft, non-tender, non-distended Integumentary: rash Extremities: no cyanosis, no edema, pulses normal, no ischemia or petechiae Neurologic: non-focal exam (grossly), pupils equal and round, other (lethargic) Psychiatric: other (unable to assess) CBC and BMP: 01/21/19 04:47 01/21/19 04:47 ABG, PT/INR, D-dimer: ABG POC ABG pH 7.518 (7.35-7.45) H 01/20/19 16:07 POC ABG pCO2 37.5 (35-45) 01/20/19 16:07 POC ABG pO2 210 (80-105) H 01/20/19 16:07 POC ABG HCO3 30.4 (22-26 mml/L) 01/20/19 16:07 POC ABG Total CO2 32 (23-27mmol/L) 01/20/19 16:07 POC ABG O2 Sat 100 01/20/19 16:07 PT/INR, D-dimer PT 14.2 Sec. (12.2-14.9) 01/14/19 05:13 INR 1.11 (0.87-1.13) 01/14/19 05:13 D-Dimer 135.00 ng/mlDDU (0-234) 01/13/19 00:27 Abnormal lab findings: Abnormal Labs 01/13/19 01/13/19 01/13/19 00:27 00:27 00:27 RBC 3.36 L Hgb Hct Lymph % (Auto) 4.2 L [place] % (Auto) Lymph # 0.3 L Seg Neutrophils % 89.1 H APTT POC ABG pH POC ABG pCO2 POC ABG pO2 VBG pH 7.178 L* Sodium Chloride 109.1 H Carbon Dioxide 20 L BUN 29 H Creatinine Glucose 175 H POC Glucose Lactic Acid Calcium 7.8 L AST ALT CK-MB (CK-2) 7.7 H CK-MB (CK-2) Rel Index 7.2 H Total Protein 6.0 L Albumin 3.3 L Ur Specific [place] 01/13/19 01/13/19 01/13/19 00:27 02:14 02:22 RBC Hgb Hct Lymph % (Auto) [place] % (Auto) Lymph # Seg Neutrophils % APTT POC ABG pH 7.276 L POC ABG pCO2 49.4 H POC ABG pO2 156 H VBG pH Sodium Chloride Carbon Dioxide BUN Creatinine Glucose POC Glucose Lactic Acid 2.90 H* 0.30 L Calcium AST ALT CK-MB (CK-2) CK-MB (CK-2) Rel Index Total Protein Albumin Ur Specific [place] 01/13/19 01/13/19 01/14/19 02:22 02:34 05:13 RBC 2.96 L Hgb 9.3 L Hct 27.4 L Lymph % (Auto) [place] % (Auto) 11.9 H Lymph # Seg Neutrophils % APTT 39.4 H POC ABG pH POC ABG pCO2 POC ABG pO2 VBG pH Sodium Chloride Carbon Dioxide BUN Creatinine Glucose POC Glucose Lactic Acid Calcium AST ALT CK-MB (CK-2) CK-MB (CK-2) Rel Index Total Protein Albumin Ur Specific [place] 1.051 H 01/14/19 01/14/19 01/15/19 05:13 06:06 04:31 RBC Hgb Hct Lymph % (Auto) [place] % (Auto) Lymph # Seg Neutrophils % APTT POC ABG pH POC ABG pCO2 33.7 L POC ABG pO2 121 H 114 H VBG pH Sodium Chloride Carbon Dioxide 21 L BUN 22 H Creatinine 0.6 L Glucose 62 L POC Glucose Lactic Acid Calcium 8.0 L AST ALT CK-MB (CK-2) CK-MB (CK-2) Rel Index Total Protein Albumin Ur Specific [place] 01/15/19 01/15/19 01/16/19 08:51 10:07 02:56 RBC Hgb Hct Lymph % (Auto) [place] % (Auto) Lymph # Seg Neutrophils % APTT POC ABG pH POC ABG pCO2 POC ABG pO2 VBG pH Sodium Chloride Carbon Dioxide BUN Creatinine Glucose POC Glucose < 40 L 158 H 142 H Lactic Acid Calcium AST ALT CK-MB (CK-2) CK-MB (CK-2) Rel Index Total Protein Albumin Ur Specific [place] 01/16/19 01/17/19 01/17/19 17:54 04:06 04:23 RBC Hgb Hct Lymph % (Auto) [place] % (Auto) Lymph # Seg Neutrophils % APTT POC ABG pH POC ABG pCO2 33.7 L POC ABG pO2 VBG pH Sodium Chloride Carbon Dioxide BUN Creatinine Glucose POC Glucose 123 H 161 H Lactic Acid Calcium AST ALT CK-MB (CK-2) CK-MB (CK-2) Rel Index Total Protein Albumin Ur Specific [place] 01/17/19 01/18/19 01/19/19 11:20 04:34 11:55 RBC Hgb Hct Lymph % (Auto) [place] % (Auto) Lymph # Seg Neutrophils % APTT POC ABG pH 7.498 H 7.484 H POC ABG pCO2 32.1 L POC ABG pO2 121 H 52 L VBG pH Sodium Chloride Carbon Dioxide BUN Creatinine Glucose POC Glucose Lactic Acid Calcium AST ALT CK-MB (CK-2) CK-MB (CK-2) Rel Index Total Protein Albumin Ur Specific [place] 01/19/19 01/20/19 01/20/19 23:45 06:30 13:22 RBC Hgb Hct Lymph % (Auto) [place] % (Auto) Lymph # Seg Neutrophils % APTT POC ABG pH POC ABG pCO2 POC ABG pO2 VBG pH Sodium Chloride Carbon Dioxide BUN Creatinine Glucose POC Glucose 128 H 107 H 149 H Lactic Acid Calcium AST ALT CK-MB (CK-2) CK-MB (CK-2) Rel Index Total Protein Albumin Ur Specific [place] 01/20/19 01/20/19 01/20/19 16:07 18:11 22:53 RBC Hgb Hct Lymph % (Auto) [place] % (Auto) Lymph # Seg Neutrophils % APTT POC ABG pH 7.518 H POC ABG pCO2 POC ABG pO2 210 H VBG pH Sodium Chloride Carbon Dioxide BUN Creatinine Glucose POC Glucose 139 H 166 H Lactic Acid Calcium AST ALT CK-MB (CK-2) CK-MB (CK-2) Rel Index Total Protein Albumin Ur Specific [place] 01/21/19 01/21/19 01/21/19 04:36 04:47 04:47 RBC 2.89 L Hgb 8.9 L Hct 26.7 L Lymph % (Auto) 13.0 L [place] % (Auto) 9.6 H Lymph # 0.7 L Seg Neutrophils % 77.0 H APTT POC ABG pH POC ABG pCO2 POC ABG pO2 VBG pH Sodium 134 L Chloride 96.9 L Carbon Dioxide BUN 18 H Creatinine 0.4 L Glucose 138 H POC Glucose 138 H Lactic Acid Calcium 8.0 L AST 171 H ALT 102 H CK-MB (CK-2) CK-MB (CK-2) Rel Index Total Protein 5.6 L Albumin 2.2 L Ur Specific [place] Chest x-ray: other (none today) Allied health notes reviewed: RT
[2019-01-21] MEDS: SCOPOLAMINE TRANSDERMAL PATCH 72 HR TD SCH (14:29)
[2019-01-21] MEDS: HALOPERIDOL 5 MG TAB PO SCH (21:56)
[2019-01-22] MEDS: LORazepam 1 MG TAB PO SCH ×3 (07:51→23:13)
[2019-01-22] MEDS: IPRATROPIUM/ALBUTEROL SULFATE 3 ML AMPUL.NEB IH SCH ×4 (07:52→20:26)
[2019-01-22] MEDS: FAMOTIDINE 20 MG TAB PO SCH ×2 (09:03→23:13)
[2019-01-22] MEDS: HEPARIN 5,000 UNIT/1 ML VIAL SUB-Q SCH ×2 (09:04→23:13)
--- NOTE | 2019-01-22 10:23 | Progress Note ---
Assessment and Plan Acute Hypoxemic and Hypercapnic Respiratory failure s/p extubation on NIPPV qhs Anemia (Normocytic) Acute Encephalopathy( improving) Cerebral palsy Fecal impaction( resolved) Moderate- severe protein calorie malnutrition -Continue small bowel feeding tube , until MBS is done to further evaluate swallow function -NIPPV qhs and prn -Aspiration precautions, HOB >40% -PT/OT to evaluate and treat -wean supplemental oxygen for O2 sats>90% -Get ABG and adjust BIPAP settings as indicated -Mainenance of sleep -wake cycle -Avoid delirium, decrease Seroquel dos -continue bronchodilators with pulmonary hygiene per RT - CXR and ABG prn - continue agitation management / Pain management per CPOT - follow clinically off antibiotics - continue VTE prophylaxis - continue stress ulcer prophylaxis - continue accuchecks with glycemic control for SSI (While critically ill target blood glucose of 140-180 mg/dL; avoid hypoglycemia) - Continue mobility protocol for pressure ulcer prevention - Monitor electrolyte profile closely and replete as indicated - continue other care per attending / other consultants Ok to transfer out of the ICU to a step down unit CONDITION: FAIR PROGNOSIS: GUARDED CODE STATUS: FULL CODE Subjective Date of service: 01/22/19 Principal diagnosis: Ac Hypoxemic and Hypercapnic Resp failure; Anemia; Cerebral palsy Interval history: Patient is seen today for: Acute Hypoxemic and Hypercapnic Respiratory failure; Anemia; Acute Encephalopathy; Cerebral palsy; Fecal impaction Seen and examined at bedside; 24hour events reviewed; nursing and respiratory care staff consulted; no adverse overnight events reported to me; resting in bed; on supplemental oxygen, NIPPV qhs. Failed bedside swallow evalaution by PRINCIPAL CONSULTING ENGINEER, needs modified barium swallow; no fevers, no vomiting, tolerating tube feeding via SBFT Vitals, labs, medications, chart reviewed Sister at the bedside Objective Vital Signs - 12hr 01/21/19 01/21/19 01/22/19 23:00 23:51 00:00 Temperature 98 F Pulse Rate 88 80 Pulse Rate [ Bilateral Throughout] Pulse Rate [ 81 From Monitor] Respiratory 18 18 20 Rate Respiratory Rate [Bilateral Throughout] Blood Pressure 100/61 116/77 O2 Sat by Pulse 100 100 100 Oximetry 01/22/19 01/22/19 01/22/19 00:01 01:00 02:00 Temperature Pulse Rate 82 87 83 Pulse Rate [ Bilateral Throughout] Pulse Rate [ From Monitor] Respiratory 20 19 18 Rate Respiratory Rate [Bilateral Throughout] Blood Pressure 116/77 113/78 117/77 O2 Sat by Pulse 100 100 100 Oximetry 01/22/19 01/22/19 01/22/19 03:00 03:23 03:28 Temperature 99 F Pulse Rate 88 93 H Pulse Rate [ Bilateral Throughout] Pulse Rate [ From Monitor] Respiratory 17 22 Rate Respiratory Rate [Bilateral Throughout] Blood Pressure 123/81 123/81 O2 Sat by Pulse 99 100 Oximetry 01/22/19 01/22/19 01/22/19 03:52 04:00 05:00 Temperature Pulse Rate 85 79 Pulse Rate [ Bilateral Throughout] Pulse Rate [ 93 H From Monitor] Respiratory 18 19 Rate Respiratory Rate [Bilateral Throughout] Blood Pressure 121/74 119/75 O2 Sat by Pulse 100 99 97 Oximetry 01/22/19 01/22/19 01/22/19 06:00 06:05 07:00 Temperature Pulse Rate 86 86 Pulse Rate [ Bilateral Throughout] Pulse Rate [ From Monitor] Respiratory 17 14 Rate Respiratory Rate [Bilateral Throughout] Blood Pressure 141/90 140/78 O2 Sat by Pulse 100 100 100 Oximetry 01/22/19 01/22/19 01/22/19 07:51 07:52 08:00 Temperature 99.2 F Pulse Rate 84 Pulse Rate [ 87 Bilateral Throughout] Pulse Rate [ 94 H From Monitor] Respiratory 19 Rate Respiratory 14 Rate [Bilateral Throughout] Blood Pressure 140/83 O2 Sat by Pulse 100 100 Oximetry 01/22/19 09:00 Temperature Pulse Rate 92 H Pulse Rate [ Bilateral Throughout] Pulse Rate [ From Monitor] Respiratory 17 Rate Respiratory Rate [Bilateral Throughout] Blood Pressure 142/80 O2 Sat by Pulse 100 Oximetry Constitutional: no acute distress Eyes: non-icteric ENT: oropharynx moist, other (BIPAP) Neck: supple, no lymphadenopathy, no JVD Effort: normal Ascultation: Bilateral: rales, rhonchi Percussion: Bilateral: not dull Cardiovascular: regular rate and rhythm, other (S1,S2) Gastrointestinal: normoactive bowel sounds, soft, non-tender, non-distended Integumentary: rash Extremities: no cyanosis, no edema, pulses normal, no ischemia or petechiae Neurologic: non-focal exam (grossly), pupils equal and round Psychiatric: other (unable to assess) CBC and BMP: 01/21/19 04:47 01/21/19 04:47 ABG, PT/INR, D-dimer: ABG POC ABG pH 7.518 (7.35-7.45) H 01/20/19 16:07 POC ABG pCO2 37.5 (35-45) 01/20/19 16:07 POC ABG pO2 210 (80-105) H 01/20/19 16:07 POC ABG HCO3 30.4 (22-26 mml/L) 01/20/19 16:07 POC ABG Total CO2 32 (23-27mmol/L) 01/20/19 16:07 POC ABG O2 Sat 100 01/20/19 16:07 PT/INR, D-dimer PT 14.2 Sec. (12.2-14.9) 01/14/19 05:13 INR 1.11 (0.87-1.13) 01/14/19 05:13 D-Dimer 135.00 ng/mlDDU (0-234) 01/13/19 00:27 Abnormal lab findings: Abnormal Labs 01/13/19 01/13/19 01/13/19 00:27 00:27 00:27 RBC 3.36 L Hgb Hct Lymph % (Auto) 4.2 L [place] % (Auto) Lymph # 0.3 L Seg Neutrophils % 89.1 H APTT POC ABG pH POC ABG pCO2 POC ABG pO2 VBG pH 7.178 L* Sodium Chloride 109.1 H Carbon Dioxide 20 L BUN 29 H Creatinine Glucose 175 H POC Glucose Lactic Acid Calcium 7.8 L AST ALT CK-MB (CK-2) 7.7 H CK-MB (CK-2) Rel Index 7.2 H Total Protein 6.0 L Albumin 3.3 L Ur Specific [place] 01/13/19 01/13/19 01/13/19 00:27 02:14 02:22 RBC Hgb Hct Lymph % (Auto) [place] % (Auto) Lymph # Seg Neutrophils % APTT POC ABG pH 7.276 L POC ABG pCO2 49.4 H POC ABG pO2 156 H VBG pH Sodium Chloride Carbon Dioxide BUN Creatinine Glucose POC Glucose Lactic Acid 2.90 H* 0.30 L Calcium AST ALT CK-MB (CK-2) CK-MB (CK-2) Rel Index Total Protein Albumin Ur Specific [place] 01/13/19 01/13/1901/14/19 02:22 02:34 05:13 RBC 2.96 L Hgb 9.3 L Hct 27.4 L Lymph % (Auto) [place] % (Auto) 11.9 H Lymph # Seg Neutrophils % APTT 39.4 H POC ABG pH POC ABG pCO2 POC ABG pO2 VBG pH Sodium Chloride Carbon Dioxide BUN Creatinine Glucose POC Glucose Lactic Acid Calcium AST ALT CK-MB (CK-2) CK-MB (CK-2) Rel Index Total Protein Albumin Ur Specific [place] 1.051 H 01/14/19 01/14/19 01/15/19 05:13 06:06 04:31 RBC Hgb Hct Lymph % (Auto) [place] % (Auto) Lymph # Seg Neutrophils % APTT POC ABG pH POC ABG pCO2 33.7 L POC ABG pO2 121 H 114 H VBG pH Sodium Chloride Carbon Dioxide 21 L BUN 22 H Creatinine 0.6 L Glucose 62 L POC Glucose Lactic Acid Calcium 8.0 L AST ALT CK-MB (CK-2) CK-MB (CK-2) Rel Index Total Protein Albumin Ur Specific [place] 01/15/19 01/15/19 01/16/19 08:51 10:07 02:56 RBC Hgb Hct Lymph % (Auto) [place] % (Auto) Lymph # Seg Neutrophils % APTT POC ABG pH POC ABG pCO2 POC ABG pO2 VBG pH Sodium Chloride Carbon Dioxide BUN Creatinine Glucose POC Glucose < 40 L 158 H 142 H Lactic Acid Calcium AST ALT CK-MB (CK-2) CK-MB (CK-2) Rel Index Total Protein Albumin Ur Specific [place] 01/16/19 01/17/19 01/17/19 17:54 04:06 04:23 RBC Hgb Hct Lymph % (Auto) [place] % (Auto) Lymph # Seg Neutrophils % APTT POC ABG pH POC ABG pCO2 33.7 L POC ABG pO2 VBG pH Sodium Chloride Carbon Dioxide BUN Creatinine Glucose POC Glucose 123 H 161 H Lactic Acid Calcium AST ALT CK-MB (CK-2) CK-MB (CK-2) Rel Index Total Protein Albumin Ur Specific [place] 01/17/19 01/18/19 01/19/19 11:20 04:34 11:55 RBC Hgb Hct Lymph % (Auto) [place] % (Auto) Lymph # Seg Neutrophils % APTT POC ABG pH 7.498 H 7.484 H POC ABG pCO2 32.1 L POC ABG pO2 121 H 52 L VBG pH Sodium Chloride Carbon Dioxide BUN Creatinine Glucose POC Glucose Lactic Acid Calcium AST ALT CK-MB (CK-2) CK-MB (CK-2) Rel Index Total Protein Albumin Ur Specific [place] 01/19/19 01/20/19 01/20/19 23:45 06:30 13:22 RBC Hgb Hct Lymph % (Auto) [place] % (Auto) Lymph # Seg Neutrophils % APTT POC ABG pH POC ABG pCO2 POC ABG pO2 VBG pH Sodium Chloride Carbon Dioxide BUN Creatinine Glucose POC Glucose 128 H 107 H 149 H Lactic Acid Calcium AST ALT CK-MB (CK-2) CK-MB (CK-2) Rel Index Total Protein Albumin Ur Specific [place] 01/20/19 01/20/19 01/20/19 16:07 18:11 22:53 RBC Hgb Hct Lymph % (Auto) [place] % (Auto) Lymph # Seg Neutrophils % APTT POC ABG pH 7.518 H POC ABG pCO2 POC ABG pO2 210 H VBG pH Sodium Chloride Carbon Dioxide BUN Creatinine Glucose POC Glucose 139 H 166 H Lactic Acid Calcium AST ALT CK-MB (CK-2) CK-MB (CK-2) Rel Index Total Protein Albumin Ur Specific [place] 01/21/19 01/21/19 01/21/19 04:36 04:47 04:47 RBC 2.89 L Hgb 8.9 L Hct 26.7 L Lymph % (Auto) 13.0 L [place] % (Auto) 9.6 H Lymph # 0.7 L Seg Neutrophils % 77.0 H APTT POC ABG pH POC ABG pCO2 POC ABG pO2 VBG pH Sodium 134 L Chloride 96.9 L Carbon Dioxide BUN 18 H Creatinine 0.4 L Glucose 138 H POC Glucose 138 H Lactic Acid Calcium 8.0 L AST 171 H ALT 102 H CK-MB (CK-2) CK-MB (CK-2) Rel Index Total Protein 5.6 L Albumin 2.2 L Ur Specific [place] 01/22/19 01/22/19 00:31 05:27 RBC Hgb Hct Lymph % (Auto) [place] % (Auto) Lymph # Seg Neutrophils % APTT POC ABG pH POC ABG pCO2 POC ABG pO2 VBG pH Sodium Chloride Carbon Dioxide BUN Creatinine Glucose POC Glucose 113 H 106 H Lactic Acid Calcium AST ALT CK-MB (CK-2) CK-MB (CK-2) Rel Index Total Protein Albumin Ur Specific [place] Allied health notes reviewed: RT
[2019-01-22] MEDS: QUEtiapine 200 MG TAB PO SCH ×2 (11:12→23:12)
--- NOTE | 2019-01-22 11:35 | Progress Note ---
Assessment and Plan Assessment and plan: --Dysphagia; modified barium swallow evaluation Speech therapist recommended PEG GI evaluated possible PEG tomorrow --Metabolic encephalopathy : Multifactorial, supportive care. --Respiratory failure requiring intubation Extubated , On Bipap, when necessary Saturating well on nasal cannula oxygen --Transaminitis ; Monitor LFTs closely, consult GI if needed --Cerebral palsy Patient has known history of cerebral palsy. --Fecal impaction Resolved, stool softeners as needed. --Severe malnutrition /hypoalbuminemia Nutrition supplements, dietitian following Continue tube feeding --DVT prophylaxis, On Heparin SQ --Full code status. Patient is critically ill with poor poor prognosis . Follow-up PEG placement, PEG feeds This patient is stable discharge with home health versus subacute rehabilitation History Interval history: Patient seen and examined medical records reviewed No new complaints, patient is noncommunicative Cachectic and malnourished Vital signs reviewed Hospitalist Physical - Constitutional Vitals: Temp Pulse Resp BP Pulse Ox 99.2 F 91 H 17 138/83 100 01/22/19 08:00 01/22/19 10:00 01/22/19 10:00 01/22/19 10:00 01/22/19 10:00 General appearance: Present: no acute distress, cachectic - EENT Eyes: Present: PERRL, EOM intact - Neck Neck: Present: supple, normal ROM - Respiratory Respiratory effort: normal Respiratory: bilateral: diminished, rhonchi, negative: rales, wheezing - Cardiovascular Rhythm: regular Heart Sounds: Present: S1 & S2 - Extremities Extremities: no ischemia, No edema - Abdominal General gastrointestinal: soft, non-tender, non-distended, normal bowel sounds - Integumentary Integumentary: Present: clear, warm - Psychiatric Psychiatric: cooperative, other (infused at times) - Neurologic Neurologic: moves all extremities, other (residual weakness) Results - Labs CBC & Chem 7: 01/21/19 04:47 01/21/19 04:47 Labs: Laboratory Last Values WBC 5.5 K/mm3 (4.5-11.0) 01/21/19 04:47 RBC 2.89 M/mm3 (3.65-5.03) L 01/21/19 04:47 Hgb 8.9 gm/dl (10.1-14.3) L 01/21/19 04:47 Hct 26.7 % (30.3-42.9) L 01/21/19 04:47 MCV 93 fl (79-97) 01/21/19 04:47 MCH 31 pg (28-32) 01/21/19 04:47 MCHC 33 % (30-34) 01/21/19 04:47 RDW 13.5 % (13.2-15.2) 01/21/19 04:47 Plt Count 234 K/mm3 (140-440) 01/21/19 04:47 Lymph % (Auto) 13.0 % (13.4-35.0) L 01/21/19 04:47 [place] % (Auto) 9.6 % (0.0-7.3) H 01/21/19 04:47 Eos % (Auto) 0.2 % (0.0-4.3) 01/21/19 04:47 Baso % (Auto) 0.2 % (0.0-1.8) 01/21/19 04:47 Lymph # 0.7 K/mm3 (1.2-5.4) L 01/21/19 04:47 [place] # 0.5 K/mm3 (0.0-0.8) 01/21/19 04:47 Eos # 0.0 K/mm3 (0.0-0.4) 01/21/19 04:47 Baso # 0.0 K/mm3 (0.0-0.1) 01/21/19 04:47 Seg Neutrophils % 77.0 % (40.0-70.0) H 01/21/19 04:47 Seg Neutrophils # 4.2 K/mm3 (1.8-7.7) 01/21/19 04:47 PT 14.2 Sec. (12.2-14.9) 01/14/19 05:13 INR 1.11 (0.87-1.13) 01/14/19 05:13 APTT 31.9 Sec. (24.2-36.6) 01/14/19 05:13 D-Dimer 135.00 ng/mlDDU (0-234) 01/13/19 00:27 POC ABG pH 7.518 (7.35-7.45) H 01/20/19 16:07 POC ABG pCO2 37.5 (35-45) 01/20/19 16:07 POC ABG pO2 210 (80-105) H 01/20/19 16:07 POC ABG HCO3 30.4 (22-26 mml/L) 01/20/19 16:07 POC ABG Total CO2 32 (23-27mmol/L) 01/20/19 16:07 POC ABG O2 Sat 100 01/20/19 16:07 POC ABG Base Excess 8 ((-2) - (+3)mmol/L) 01/20/19 16:07 VBG pH 7.178 (7.320-7.420) L* 01/13/19 00:27 FiO2 50 % 01/20/19 16:07 Sodium 134 mmol/L (137-145) L 01/21/19 04:47 Potassium 3.7 mmol/L (3.6-5.0) 01/21/19 04:47 Chloride 96.9 mmol/L (98-107) L 01/21/19 04:47 Carbon Dioxide 25 mmol/L (22-30) 01/21/19 04:47 Anion Gap 16 mmol/L 01/21/19 04:47 BUN 18 mg/dL (7-17) H 01/21/19 04:47 Creatinine 0.4 mg/dL (0.7-1.2) L 01/21/19 04:47 Estimated GFR > 60 ml/min 01/21/19 04:47 BUN/Creatinine Ratio 45 % 01/21/19 04:47 Glucose 138 mg/dL (65-100) H 01/21/19 04:47 POC Glucose 106 (70-105) H 01/22/19 05:27 Lactic Acid 0.30 mmol/L (0.7-2.0) L 01/13/19 02:22 Calcium 8.0 mg/dL (8.4-10.2) L 01/21/19 04:47 Magnesium 2.10 mg/dL (1.7-2.3) 01/21/19 04:47 Total Bilirubin < 0.20 mg/dL (0.1-1.2) 01/21/19 04:47 AST 171 units/L (5-40) H 01/21/19 04:47 ALT 102 units/L (7-56) H 01/21/19 04:47 Alkaline Phosphatase 107 units/L (35-129) 01/21/19 04:47 Ammonia 25.0 umol/L (25-60) 01/13/19 00:27 Total Creatine Kinase 106 units/L (30-135) 01/13/19 00:27 CK-MB (CK-2) 7.7 ng/mL (0.0-4.0) H 01/13/19 00:27 CK-MB (CK-2) Rel Index 7.2 (0-4) H 01/13/19 00:27 Troponin T < 0.010 ng/mL (0.00-0.029) 01/13/19 00:27 NT-Pro-B Natriuret Pep 52.36 pg/mL (0-900) 01/13/19 00:27 Total Protein 5.6 g/dL (6.3-8.2) L 01/21/19 04:47 Albumin 2.2 g/dL (3.9-5) L 01/21/19 04:47 Albumin/Globulin Ratio 0.6 % 01/21/19 04:47 Urine Color Yellow (Yellow) 01/13/19 02:34 Urine Turbidity Slightly-cloudy (Clear) 01/13/19 02:34 Urine pH 5.0 (5.0-7.0) 01/13/19 02:34 Ur Specific [place] 1.051 (1.003-1.030) H 01/13/19 02:34 Urine Protein <15 mg/dl mg/dL (Negative) 01/13/19 02:34 Urine Glucose (UA) 50 mg/dL (Negative) 01/13/19 02:34 Urine Ketones Neg mg/dL (Negative) 01/13/19 02:34 Urine Blood Neg (Negative) 01/13/19 02:34 Urine Nitrite Neg (Negative) 01/13/19 02:34 Urine Bilirubin Neg (Negative) 01/13/19 02:34 Urine Urobilinogen < 2.0 mg/dL (<2.0) 01/13/19 02:34 Ur Leukocyte Esterase Neg (Negative) 01/13/19 02:34 Urine WBC (Auto) < 1.0 /HPF (0.0-6.0) 01/13/19 02:34 Urine RBC (Auto) < 1.0 /HPF (0.0-6.0) 01/13/19 02:34 U Epithel Cells (Auto) < 1.0 /HPF (0-13.0) 01/13/19 02:34 Urine Bacteria (Auto) 1+ /HPF (Negative) 01/13/19 02:34 Urine Mucus 1+ /HPF 01/13/19 02:34 Active Medications - Current Medications Current Medications: Generic Name Dose Route Start Last Admin Trade Name Freq PRN Reason Stop Dose Admin Acetaminophen 650 mg 01/13/19 04:55 Tylenol NV Q6H PRN Pain MILD(1-3)/Fever >100.5/WOOD Albuterol/Ipratropium 1 ampul 01/19/19 12:00 01/22/19 07:52 Duoneb *Not For Prn Use* IH 1 ampul QIDRT JOAN Administration Lipase/Protease/Amylase 1 each 01/19/19 13:12 Pancreazsundeep Schwartz 10,500 Unit FEEDTUBE PRN PRN For Clogged Feeding Tube Bisacodyl 10 mg 01/13/19 04:55 01/16/19 11:30 Dulcolax NV 10 mg QDAY PRN Administration constipation unrelieved by MOM Dextrose 25 ml 01/15/19 08:51 01/15/19 09:00 D50w (25gm) Syringe IV 25 ml Q30MIN PRN Administration Hypoglycemia Protocol Famotidine 20 mg 01/17/19 10:00 01/22/19 09:03 Pepcid PO 20 mg BID JOAN Administration Haloperidol 5 mg 01/15/19 22:00 01/21/19 21:56 Haldol PO Not Given QHS [facility] Heparin Sodium (Porcine) 5,000 unit 01/15/19 22:00 01/22/19 09:04 Heparin SUB-Q 5,000 unit Q12HR JOAN Administration Hydralazine HCl 10 mg 01/18/19 18:48 01/18/19 19:36 Apresoline IV 10 mg Q3HR PRN Administration SBP >/=160 Hydrophilic Ointment 1 applic 01/12/19 23:54 Vaseline Lip Therapy TP Q2HR PRN Dry Lips Lorazepam 1 mg 01/20/19 22:00 01/22/19 09:04 Ativan PO 1 mg BID JOAN Administration Multi-Ingred Cream/Lotion/Oil/Oint 1 applic 01/12/19 23:54 Artificial Tears Ophth Oint OU Q4HR PRN Dry Eye(s) Ondansetron HCl 4 mg 01/13/19 04:55 Zofran IV Q8H PRN Nausea And Vomiting Quetiapine Fumarate 400 mg 01/22/19 22:00 Seroquel PO QHS JOAN Scopolamine 1 each 01/15/19 14:00 01/21/19 14:29 Transderm-Scop TD 1 each Q3D JOAN Administration Simple Syrup 15 ml 01/19/19 13:12 Simple Syrup FEEDTUBE PRN PRN Hypoglycemia Simple Syrup 30 ml 01/19/19 13:12 Simple Syrup FEEDTUBE PRN PRN Hypoglycemia Sodium Bicarbonate 325 mg 01/19/19 13:12 Sodium Bicarbonate FEEDTUBE PRN PRN For Clogged Feeding Tube Sodium Chloride 10 ml 01/13/19 10:00 01/22/19 09:04 Sodium Chloride Flush Syringe 10 Ml IV 10 ml BID JOAN Administration Sodium Chloride 10 ml 01/13/19 04:55 Sodium Chloride Flush Syringe 10 Ml IV PRN PRN LINE FLUSH Nutrition/Malnutrition Assess - Dietary Evaluation Nutrition/Malnutrition Findings: Nutrition Notes Start: 01/13/19 12:10 Freq: Status: Active Protocol: Document 01/19/19 10:58 CC (Rec: 01/19/19 11:13 CC [id number]) Co-Sign 01/19/19 10:58 LP Nutrition Notes Initial or Follow up Reassessment Current Diagnosis Respiratory Failure Other Pertinent Diagnosis Cerbral palsy, Seizure, fecal impaction, dehydration Current Diet Promote at 60ml/hr Labs/Tests No new labs Pertinent Medications Reviewed Height 5 ft 2 in Weight 37.195 kg [place] Body Weight (kg) 50.00 BMI 15.0 Weight Status Underweight Subjective/Other Information Pt was extubated yesterday, [employer]ATOR consulted for today. TF not running. Dobhoff is planned to be placed today. Change TF to [place] 1.2 at 50ml/hr Percent of energy/protein needs met: 0%/0% Burn Absent Trauma Absent Current % PO Negligible Minimum of two criteria No #1 Nutrition Diagnosis Inadequate oral intake Diagnosis Progress(for reassessment Continues documentation) Is patient on ventilator? No Is Patient Ambulatory and/or Out of Bed No REE-([facility]-confined to bed) 1032.324 Kcal/Kg value to use for calculation 42 Approximate Energy Requirements Using 1562 kcal/Kg Calculation Used for Recommendations Kcal/kg Additional Notes PRO: 37-45g/day (1.0-1.2g/kg) Fluid: Nutrition Intervention Change Diet Order: TF diet Nutrition Support: Change to Jevity 1.2 at 50ml/ hr Water flush 100ml q4hr Kcal 1,440 Protein (gm) 67 Fluid (mL) 968 Goal #1 Restart TF once Dobhoff placed Goal #2 Meet at least 80% of energy and protein needs Anticipated Discharge Needs: Unable to determine at this time Follow-Up By: 01/23/19 Additional Comments F/U for TF rate/tolerance
--- NOTE | 2019-01-22 13:44 | Progress Note ---
Assessment and Plan Patient sleeping. Not responding to verbal stimuli.Not following commands. Patient bruxing her teeth. Patient is on 3 litres O2. O2 saturation 100%. No acute respiratory distress. - Patient Problems (1) Respiratory failure requiring intubation Current Visit: Yes Status: Acute Plan to address problem: Patient intubated and extubated presently resting on 2 l of O2. [id number] running at 100% (2) Cerebral palsy Current Visit: Yes Status: Acute Plan to address problem: Aspiration precautions management was per primary care (3) Constipation Current Visit: Yes Status: Acute Plan to address problem: Management was per primary care team (4) Ileus Current Visit: Yes Status: Acute Plan to address problem: Management was per primary care team Subjective Date of service: 01/22/19 Principal diagnosis: Ac Hypoxemic and Hypercapnic Resp failure; Anemia; Cerebral palsy Interval history: Patient sleeping. Not responding to verbal stimuli.Not following commands. Patient bruxing her teeth. Patient is on 3 litres O2. O2 saturation 100%. No acu te respiratory distress. Objective Vital Signs - 12hr 01/22/19 01/22/19 01/22/19 02:00 03:00 03:23 Temperature 99 F Pulse Rate 83 88 Pulse Rate [ Bilateral Throughout] Pulse Rate [ From Monitor] Respiratory 18 17 Rate Respiratory Rate [Bilateral Throughout] Blood Pressure 117/77 123/81 O2 Sat by Pulse 100 99 Oximetry 01/22/19 01/22/19 01/22/19 03:28 03:52 04:00 Temperature Pulse Rate 93 H 85 Pulse Rate [ Bilateral Throughout] Pulse Rate [ 93 H From Monitor] Respiratory 22 18 Rate Respiratory Rate [Bilateral Throughout] Blood Pressure 123/81 121/74 O2 Sat by Pulse 100 100 99 Oximetry 01/22/19 01/22/19 01/22/19 05:00 06:00 06:05 Temperature Pulse Rate 79 86 Pulse Rate [ Bilateral Throughout] Pulse Rate [ From Monitor] Respiratory 19 17 Rate Respiratory Rate [Bilateral Throughout] Blood Pressure 119/75 141/90 O2 Sat by Pulse 97 100 100 Oximetry 01/22/19 01/22/19 01/22/19 07:00 07:51 07:52 Temperature Pulse Rate 86 Pulse Rate [ 87 Bilateral Throughout] Pulse Rate [ From Monitor] Respiratory 14 Rate Respiratory 14 Rate [Bilateral Throughout] Blood Pressure 140/78 O2 Sat by Pulse 100 100 Oximetry 01/22/19 01/22/19 01/22/19 08:00 09:00 10:00 Temperature 99.2 F Pulse Rate 84 92 H 91 H Pulse Rate [ Bilateral Throughout] Pulse Rate [ 94 H From Monitor] Respiratory 19 17 17 Rate Respiratory Rate [Bilateral Throughout] Blood Pressure 140/83 142/80 138/83 O2 Sat by Pulse 100 100 100 Oximetry 01/22/19 01/22/19 11:00 12:00 Temperature Pulse Rate 95 H 94 H Pulse Rate [ Bilateral Throughout] Pulse Rate [ 105 H From Monitor] Respiratory 25 H 15 Rate Respiratory Rate [Bilateral Throughout] Blood Pressure 137/85 129/87 O2 Sat by Pulse 81 L 78 L Oximetry Constitutional: no acute distress, asleep Eyes: non-icteric ENT: oropharynx moist, other (BIPAP) Neck: supple, no lymphadenopathy, no JVD Effort: mildly labored Ascultation: Bilateral: rales, rhonchi, other (referred upper airway sounds) Percussion: Bilateral: not dull Cardiovascular: regular rate and rhythm, other (S1,S2) Gastrointestinal: normoactive bowel sounds, soft, non-tender, non-distended Integumentary: rash Extremities: no cyanosis, no edema, pulses normal, no ischemia or petechiae Neurologic: non-focal exam (grossly), pupils equal and round, other (lethargic) Psychiatric: other (unable to assess) CBC and BMP: 01/21/19 04:47 01/21/19 04:47 ABG, PT/INR, D-dimer: ABG POC ABG pH 7.518 (7.35-7.45) H 01/20/19 16:07 POC ABG pCO2 37.5 (35-45) 01/20/19 16:07 POC ABG pO2 210 (80-105) H 01/20/19 16:07 POC ABG HCO3 30.4 (22-26 mml/L) 01/20/19 16:07 POC ABG Total CO2 32 (23-27mmol/L) 01/20/19 16:07 POC ABG O2 Sat 100 01/20/19 16:07 PT/INR, D-dimer PT 14.2 Sec. (12.2-14.9) 01/14/19 05:13 INR 1.11 (0.87-1.13) 01/14/19 05:13 D-Dimer 135.00 ng/mlDDU (0-234) 01/13/19 00:27 Abnormal lab findings: Abnormal Labs 01/13/19 01/13/19 01/13/19 00:27 00:27 00:27 RBC 3.36 L Hgb Hct Lymph % (Auto) 4.2 L [place] % (Auto) Lymph # 0.3 L Seg Neutrophils % 89.1 H APTT POC ABG pH POC ABG pCO2 POC ABG pO2 VBG pH 7.178 L* Sodium Chloride 109.1 H Carbon Dioxide 20 L BUN 29 H Creatinine Glucose 175 H POC Glucose Lactic Acid Calcium 7.8 L AST ALT CK-MB (CK-2) 7.7 H CK-MB (CK-2) Rel Index 7.2 H Total Protein 6.0 L Albumin 3.3 L Ur Specific [place] 01/13/19 01/13/19 01/13/19 00:27 02:14 02:22 RBC Hgb Hct Lymph % (Auto) [place] % (Auto) Lymph # Seg Neutrophils % APTT POC ABG pH 7.276 L POC ABG pCO2 49.4 H POC ABG pO2 156 H VBG pH Sodium Chloride Carbon Dioxide BUN Creatinine Glucose POC Glucose Lactic Acid 2.90 H* 0.30 L Calcium AST ALT CK-MB (CK-2) CK-MB (CK-2) Rel Index Total Protein Albumin Ur Specific [place] 01/13/19 01/13/19 01/14/19 02:22 02:34 05:13 RBC 2.96 L Hgb 9.3 L Hct 27.4 L Lymph % (Auto) [place] % (Auto) 11.9 H Lymph # Seg Neutrophils % APTT 39.4 H POC ABG pH POC ABG pCO2 POC ABG pO2 VBG pH Sodium Chloride Carbon Dioxide BUN Creatinine Glucose POC Glucose Lactic Acid Calcium AST ALT CK-MB (CK-2) CK-MB (CK-2) Rel Index Total Protein Albumin Ur Specific [place] 1.051 H 01/14/19 01/14/19 01/15/19 05:13 06:06 04:31 RBC Hgb Hct Lymph % (Auto) [place] % (Auto) Lymph # Seg Neutrophils % APTT POC ABG pH POC ABG pCO2 33.7 L POC ABG pO2 121 H 114 H VBG pH Sodium Chloride Carbon Dioxide 21 L BUN 22 H Creatinine 0.6 L Glucose 62 L POC Glucose Lactic Acid Calcium 8.0 L AST ALT CK-MB (CK-2) CK-MB (CK-2) Rel Index Total Protein Albumin Ur Specific [place] 01/15/19 01/15/19 01/16/19 08:51 10:07 02:56 RBC Hgb Hct Lymph % (Auto) [place] % (Auto) Lymph # Seg Neutrophils % APTT POC ABG pH POC ABG pCO2 POC ABG pO2 VBG pH Sodium Chloride Carbon Dioxide BUN Creatinine Glucose POC Glucose < 40 L 158 H 142 H Lactic Acid Calcium AST ALT CK-MB (CK-2) CK-MB (CK-2) Rel Index Total Protein Albumin Ur Specific [place] 01/16/19 01/17/19 01/17/19 17:54 04:06 04:23 RBC Hgb Hct Lymph % (Auto) [place] % (Auto) Lymph # Seg Neutrophils % APTT POC ABG pH POC ABG pCO2 33.7 L POC ABG pO2 VBG pH Sodium Chloride Carbon Dioxide BUN Creatinine Glucose POC Glucose 123 H 161 H Lactic Acid Calcium AST ALT CK-MB (CK-2) CK-MB (CK-2) Rel Index Total Protein Albumin Ur Specific [place] 01/17/19 01/18/19 01/19/19 11:20 04:34 11:55 RBC Hgb Hct Lymph % (Auto) [place] % (Auto) Lymph # Seg Neutrophils % APTT POC ABG pH 7.498 H 7.484 H POC ABG pCO2 32.1 L POC ABG pO2 121 H 52 L VBG pH Sodium Chloride Carbon Dioxide BUN Creatinine Glucose POC Glucose Lactic Acid Calcium AST ALT CK-MB (CK-2) CK-MB (CK-2) Rel Index Total Protein Albumin Ur Specific [place] 01/19/19 01/20/19 01/20/19 23:45 06:30 13:22 RBC Hgb Hct Lymph % (Auto) [place] % (Auto) Lymph # Seg Neutrophils % APTT POC ABG pH POC ABG pCO2 POC ABG pO2 VBG pH Sodium Chloride Carbon Dioxide BUN Creatinine Glucose POC Glucose 128 H 107 H 149 H Lactic Acid Calcium AST ALT CK-MB (CK-2) CK-MB (CK-2) Rel Index Total Protein Albumin Ur Specific [place] 01/20/19 01/20/19 01/20/19 16:07 18:11 22:53 RBC Hgb Hct Lymph % (Auto) [place] % (Auto) Lymph # Seg Neutrophils % APTT POC ABG pH 7.518 H POC ABG pCO2 POC ABG pO2 210 H VBG pH Sodium Chloride Carbon Dioxide BUN Creatinine Glucose POC Glucose 139 H 166 H Lactic Acid Calcium AST ALT CK-MB (CK-2) CK-MB (CK-2) Rel Index Total Protein Albumin Ur Specific [place] 01/21/19 01/21/19 01/21/19 04:36 04:47 04:47 RBC 2.89 L Hgb 8.9 L Hct 26.7 L Lymph % (Auto) 13.0 L [place] % (Auto) 9.6 H Lymph # 0.7 L Seg Neutrophils % 77.0 H APTT POC ABG pH POC ABG pCO2 POC ABG pO2 VBG pH Sodium 134 L Chloride 96.9 L Carbon Dioxide BUN 18 H Creatinine 0.4 L Glucose 138 H POC Glucose 138 H Lactic Acid Calcium 8.0 L AST 171 H ALT 102 H CK-MB (CK-2) CK-MB (CK-2) Rel Index Total Protein 5.6 L Albumin 2.2 L Ur Specific [place] 01/22/19 01/22/19 01/22/19 00:31 05:27 12:16 RBC Hgb Hct Lymph % (Auto) [place] % (Auto) Lymph # Seg Neutrophils % APTT POC ABG pH POC ABG pCO2 POC ABG pO2 VBG pH Sodium Chloride Carbon Dioxide BUN Creatinine Glucose POC Glucose 113 H 106 H 113 H Lactic Acid Calcium AST ALT CK-MB (CK-2) CK-MB (CK-2) Rel Index Total Protein Albumin Ur Specific [place] Chest x-ray: report reviewed (reported no acute findings), image reviewed Allied health notes reviewed: RT
--- NOTE | 2019-01-22 15:26 | Fluoroscopy Report ---
MODIFIED BARIUM SWALLOW INDICATION: dysphagia TECHNIQUE: Swallowing was evaluated in the lateral position under direct fluoroscopy. FINDINGS: The patient was evaluated with thin liquids, nectar and puree consistencies. Silent aspiration was witnessed with all 3 consistencies. The exam was terminated at this point. IMPRESSION: Aspiration with thin liquids, nectar and puree consistencies. Fluoroscopic time: 1.0 minutes Number of fluoroscopic images: 1 Signer Name: Víctor Bai Jr, MD Signed: 01/22/2019 3:22 PM Workstation Name: [id number]
[2019-01-22] MEDS: HALOPERIDOL 5 MG TAB PO SCH (23:13)
[2019-01-23] MEDS: IPRATROPIUM/ALBUTEROL SULFATE 3 ML AMPUL.NEB IH SCH ×4 (02:15→21:52)
--- NOTE | 2019-01-23 08:21 | Progress Note ---
Assessment and Plan Assessment and plan: Metabolic encephalopathy : Multifactorial, supportive care Respiratory failure requiring intubation Extubated , On Bipap, when necessary Saturating well on nasal cannula oxygen Transaminitis ; Monitor LFTs closely, consult GI if needed Abnormal swallow evaluation /dysphagia GI evaluation and PEG placement Cerebral palsy Patient has known history of cerebral palsy. Fecal impaction Resolved, stool softeners as needed. Severe malnutrition /hypoalbuminemia Nutrition supplements, dietitian following Continue tube feeding DVT prophylaxis, On Heparin SQ Full code status. monitor the patient closely and adjust management as needed Follow GI evaluation and recommendations Plan of care reviewed with the patient and nurse History Interval history: Patient seen and examined medical records reviewed No new events reported by the nursing staff Speech and swallow evaluated the patient Modified barium swallow abnormal Check GI for possible PEG placement Patient feels better Hospitalist Physical - Constitutional Vitals: Temp Pulse Resp BP Pulse Ox 99.8 F H 93 H 18 89/57 100 01/23/19 02:16 01/23/19 02:16 01/23/19 02:16 01/23/19 02:16 01/23/19 08:14 General appearance: Present: no acute distress, cachectic - EENT Eyes: Present: PERRL, EOM intact - Neck Neck: Present: supple, normal ROM - Respiratory Respiratory effort: normal Respiratory: bilateral: diminished, negative: rales, rhonchi, wheezing - Cardiovascular Rhythm: regular Heart Sounds: Present: S1 & S2 - Extremities Extremities: no ischemia, pulses intact Peripheral Pulses: within normal limits - Abdominal General gastrointestinal: soft, non-tender, non-distended, normal bowel sounds - Integumentary Integumentary: Present: clear, warm - Psychiatric Psychiatric: appropriate mood/affect, cooperative - Neurologic Neurologic: CNII-XII intact Results - Labs CBC & Chem 7: 01/21/19 04:47 01/21/19 04:47 Labs: Laboratory Last Values WBC 5.5 K/mm3 (4.5-11.0) 01/21/19 04:47 RBC 2.89 M/mm3 (3.65-5.03) L 01/21/19 04:47 Hgb 8.9 gm/dl (10.1-14.3) L 01/21/19 04:47 Hct 26.7 % (30.3-42.9) L 01/21/19 04:47 MCV 93 fl (79-97) 01/21/19 04:47 MCH 31 pg (28-32) 01/21/19 04:47 MCHC 33 % (30-34) 01/21/19 04:47 RDW 13.5 % (13.2-15.2) 01/21/19 04:47 Plt Count 234 K/mm3 (140-440) 01/21/19 04:47 Lymph % (Auto) 13.0 % (13.4-35.0) L 01/21/19 04:47 [place] % (Auto) 9.6 % (0.0-7.3) H 01/21/19 04:47 Eos % (Auto) 0.2 % (0.0-4.3) 01/21/19 04:47 Baso % (Auto) 0.2 % (0.0-1.8) 01/21/19 04:47 Lymph # 0.7 K/mm3 (1.2-5.4) L 01/21/19 04:47 [place] # 0.5 K/mm3 (0.0-0.8) 01/21/19 04:47 Eos # 0.0 K/mm3 (0.0-0.4) 01/21/19 04:47 Baso # 0.0 K/mm3 (0.0-0.1) 01/21/19 04:47 Seg Neutrophils % 77.0 % (40.0-70.0) H 01/21/19 04:47 Seg Neutrophils # 4.2 K/mm3 (1.8-7.7) 01/21/19 04:47 PT 14.2 Sec. (12.2-14.9) 01/14/19 05:13 INR 1.11 (0.87-1.13) 01/14/19 05:13 APTT 31.9 Sec. (24.2-36.6) 01/14/19 05:13 D-Dimer 135.00 ng/mlDDU (0-234) 01/13/19 00:27 POC ABG pH 7.518 (7.35-7.45) H 01/20/19 16:07 POC ABG pCO2 37.5 (35-45) 01/20/19 16:07 POC ABG pO2 210 (80-105) H 01/20/19 16:07 POC ABG HCO3 30.4 (22-26 mml/L) 01/20/19 16:07 POC ABG Total CO2 32 (23-27mmol/L) 01/20/19 16:07 POC ABG O2 Sat 100 01/20/19 16:07 POC ABG Base Excess 8 ((-2) - (+3)mmol/L) 01/20/19 16:07 VBG pH 7.178 (7.320-7.420) L* 01/13/19 00:27 FiO2 50 % 01/20/19 16:07 Sodium 134 mmol/L (137-145) L 01/21/19 04:47 Potassium 3.7 mmol/L (3.6-5.0) 01/21/19 04:47 Chloride 96.9 mmol/L (98-107) L 01/21/19 04:47 Carbon Dioxide 25 mmol/L (22-30) 01/21/19 04:47 Anion Gap 16 mmol/L 01/21/19 04:47 BUN 18 mg/dL (7-17) H 01/21/19 04:47 Creatinine 0.4 mg/dL (0.7-1.2) L 01/21/19 04:47 Estimated GFR > 60 ml/min 01/21/19 04:47 BUN/Creatinine Ratio 45 % 01/21/19 04:47 Glucose 138 mg/dL (65-100) H 01/21/19 04:47 POC Glucose 139 (70-105) H 01/23/19 05:43 Lactic Acid 0.30 mmol/L (0.7-2.0) L 01/13/19 02:22 Calcium 8.0 mg/dL (8.4-10.2) L 01/21/19 04:47 Magnesium 2.10 mg/dL (1.7-2.3) 01/21/19 04:47 Total Bilirubin < 0.20 mg/dL (0.1-1.2) 01/21/19 04:47 AST 171 units/L (5-40) H 01/21/19 04:47 ALT 102 units/L (7-56) H 01/21/19 04:47 Alkaline Phosphatase 107 units/L (35-129) 01/21/19 04:47 Ammonia 25.0 umol/L (25-60) 01/13/19 00:27 Total Creatine Kinase 106 units/L (30-135) 01/13/19 00:27 CK-MB (CK-2) 7.7 ng/mL (0.0-4.0) H 01/13/19 00:27 CK-MB (CK-2) Rel Index 7.2 (0-4) H 01/13/19 00:27 Troponin T < 0.010 ng/mL (0.00-0.029) 01/13/19 00:27 NT-Pro-B Natriuret Pep 52.36 pg/mL (0-900) 01/13/19 00:27 Total Protein 5.6 g/dL (6.3-8.2) L 01/21/19 04:47 Albumin 2.2 g/dL (3.9-5) L 01/21/19 04:47 Albumin/Globulin Ratio 0.6 % 01/21/19 04:47 Urine Color Yellow (Yellow) 01/13/19 02:34 Urine Turbidity Slightly-cloudy (Clear) 01/13/19 02:34 Urine pH 5.0 (5.0-7.0) 01/13/19 02:34 Ur Specific [place] 1.051 (1.003-1.030) H 01/13/19 02:34 Urine Protein <15 mg/dl mg/dL (Negative) 01/13/19 02:34 Urine Glucose (UA) 50 mg/dL (Negative) 01/13/19 02:34 Urine Ketones Neg mg/dL (Negative) 01/13/19 02:34 Urine Blood Neg (Negative) 01/13/19 02:34 Urine Nitrite Neg (Negative) 01/13/19 02:34 Urine Bilirubin Neg (Negative) 01/13/19 02:34 Urine Urobilinogen < 2.0 mg/dL (<2.0) 01/13/19 02:34 Ur Leukocyte Esterase Neg (Negative) 01/13/19 02:34 Urine WBC (Auto) < 1.0 /HPF (0.0-6.0) 01/13/19 02:34 Urine RBC (Auto) < 1.0 /HPF (0.0-6.0) 01/13/19 02:34 U Epithel Cells (Auto) < 1.0 /HPF (0-13.0) 01/13/19 02:34 Urine Bacteria (Auto) 1+ /HPF (Negative) 01/13/19 02:34 Urine Mucus 1+ /HPF 01/13/19 02:34 Active Medications - Current Medications Current Medications: Generic Name Dose Route Start Last Admin Trade Name Freq PRN Reason Stop Dose Admin Acetaminophen 650 mg 01/13/19 04:55 Tylenol TX Q6H PRN Pain MILD(1-3)/Fever >100.5/WOOD Albuterol/Ipratropium 1 ampul 01/22/19 14:00 01/23/19 08:18 Duoneb *Not For Prn Use* IH 1 ampul Q6HRT JOAN Administration Lipase/Protease/Amylase 1 each 01/19/19 13:12 Pancreazsundeep Schwartz 10,500 Unit FEEDTUBE PRN PRN For Clogged Feeding Tube Bisacodyl 10 mg 01/13/19 04:55 01/16/19 11:30 Dulcolax TX 10 mg QDAY PRN Administration constipation unrelieved by MOM Dextrose 25 ml 01/15/19 08:51 01/15/19 09:00 D50w (25gm) Syringe IV 25 ml Q30MIN PRN Administration Hypoglycemia Protocol Famotidine 20 mg 01/17/19 10:00 01/22/19 23:13 Pepcid PO 20 mg BID OJAN Administration Haloperidol 5 mg 01/15/19 22:00 01/22/19 23:13 Haldol PO 5 mg QHS JOAN Administration Heparin Sodium (Porcine) 5,000 unit 01/15/19 22:00 01/22/19 23:13 Heparin SUB-Q 5,000 unit Q12HR JOAN Administration Hydralazine HCl 10 mg 01/18/19 18:48 01/18/19 19:36 Apresoline IV 10 mg Q3HR PRN Administration SBP >/=160 Hydrophilic Ointment 1 applic 01/12/19 23:54 Vaseline Lip Therapy TP Q2HR PRN Dry Lips Lorazepam 1 mg 01/20/19 22:00 01/22/19 23:13 Ativan PO 1 mg BID JOAN Administration Multi-Ingred Cream/Lotion/Oil/Oint 1 applic 01/12/19 23:54 Artificial Tears Ophth Oint OU Q4HR PRN Dry Eye(s) Ondansetron HCl 4 mg 01/13/19 04:55 Zofran IV Q8H PRN Nausea And Vomiting Quetiapine Fumarate 400 mg 01/22/19 22:00 01/22/19 23:12 Seroquel PO 400 mg QHS JOAN Administration Simple Syrup 15 ml 01/19/19 13:12 Simple Syrup FEEDTUBE PRN PRN Hypoglycemia Simple Syrup 30 ml 01/19/19 13:12 Simple Syrup FEEDTUBE PRN PRN Hypoglycemia Sodium Bicarbonate 325 mg 01/19/19 13:12 Sodium Bicarbonate FEEDTUBE PRN PRN For Clogged Feeding Tube Sodium Chloride 10 ml 01/13/19 10:00 01/22/19 23:14 Sodium Chloride Flush Syringe 10 Ml IV 10 ml BID JOAN Administration Sodium Chloride 10 ml 01/13/19 04:55 Sodium Chloride Flush Syringe 10 Ml IV PRN PRN LINE FLUSH Nutrition/Malnutrition Assess - Dietary Evaluation Nutrition/Malnutrition Findings: Nutrition Notes Start: 01/13/19 12:10 Freq: Status: Active Protocol: Document 01/19/19 10:58 CC (Rec: 01/19/19 11:13 CC [id number]) Co-Sign 01/19/19 10:58 LP Nutrition Notes Initial or Follow up Reassessment Current Diagnosis Respiratory Failure Other Pertinent Diagnosis Cerbral palsy, Seizure, fecal impaction, dehydration Current Diet Promote at 60ml/hr Labs/Tests No new labs Pertinent Medications Reviewed Height 5 ft 2 in Weight 37.195 kg [place] Body Weight (kg) 50.00 BMI 15.0 Weight Status Underweight Subjective/Other Information Pt was extubated yesterday, [employer] consulted for today. TF not running. Dobhoff is planned to be placed today. Change TF to Jevity 1.2 at 50ml/hr Percent of energy/protein needs met: 0%/0% Burn Absent Trauma Absent Current % PO Negligible Minimum of two criteria No #1 Nutrition Diagnosis Inadequate oral intake Diagnosis Progress(for reassessment Continues documentation) Is patient on ventilator? No Is Patient Ambulatory and/or Out of Bed No REE-([facility]-confined to bed) 1032.324 Kcal/Kg value to use for calculation 42 Approximate Energy Requirements Using 1562 kcal/Kg Calculation Used for Recommendations Kcal/kg Additional Notes PRO: 37-45g/day (1.0-1.2g/kg) Fluid: Nutrition Intervention Change Diet Order: TF diet Nutrition Support: Change to Jevity 1.2 at 50ml/ hr Water flush 100ml q4hr Kcal 1,440 Protein (gm) 67 Fluid (mL) 968 Goal #1 Restart TF once Dobhoff placed Goal #2 Meet at least 80% of energy and protein needs Anticipated Discharge Needs: Unable to determine at this time Follow-Up By: 01/23/19 Additional Comments F/U for TF rate/tolerance
[2019-01-23] MEDS: FAMOTIDINE 20 MG TAB PO SCH ×2 (10:14→23:00)
[2019-01-23] MEDS: LORazepam 1 MG TAB PO SCH ×2 (10:14→22:59)
[2019-01-23] MEDS: HEPARIN 5,000 UNIT/1 ML VIAL SUB-Q SCH ×2 (10:15→23:00)
--- NOTE | 2019-01-23 14:15 | Progress Note ---
Assessment and Plan Patient awake. .Not following commands. Patient bruxing her teeth. Patient is on 3 litres O2. O2 saturation 98%. No acute respiratory distress.. - Patient Problems (1) Respiratory failure requiring intubation Current Visit: Yes Status: Acute Plan to address problem: Patient intubated and extubated presently resting on 3 l of O2. [id number] running at 98% (2) Cerebral palsy Current Visit: Yes Status: Acute Plan to address problem: Aspiration precautions management was per primary care (3) Constipation Current Visit: Yes Status: Acute Plan to address problem: Management was per primary care team (4) Ileus Current Visit: Yes Status: Acute Plan to address problem: Management was per primary care team Subjective Date of service: 01/23/19 Principal diagnosis: Ac Hypoxemic and Hypercapnic Resp failure; Anemia; Cerebral palsy Interval history: Patient awake. .Not following commands. Patient bruxing her teeth. Patient is on 3 litres O2. O2 saturation 98%. No acute respiratory distress. Objective Vital Signs - 12hr 01/23/19 01/23/19 01/23/19 02:16 08:14 08:17 Temperature 99.8 F H Pulse Rate 131 H 95 H Pulse Rate [ 93 H Anterior Throughout] Pulse Rate [ 92 H Bilateral Throughout] Pulse Rate [ From Monitor] Respiratory 18 Rate Respiratory 18 Rate [Anterior Throughout] Respiratory 16 Rate [Bilateral Throughout] Blood Pressure 89/57 O2 Sat by Pulse 100 100 100 Oximetry 01/23/19 01/23/19 08:18 10:00 Temperature Pulse Rate Pulse Rate [ Anterior Throughout] Pulse Rate [ 96 H Bilateral Throughout] Pulse Rate [ 96 H From Monitor] Respiratory 18 Rate Respiratory Rate [Anterior Throughout] Respiratory 18 Rate [Bilateral Throughout] Blood Pressure O2 Sat by Pulse 100 Oximetry Constitutional: no acute distress, alert Eyes: non-icteric ENT: oropharynx moist, other (BIPAP) Neck: supple, no lymphadenopathy, no JVD Effort: normal Ascultation: Bilateral: rales, other (referred upper airway sounds) Percussion: Bilateral: not dull Cardiovascular: regular rate and rhythm, other (S1,S2) Gastrointestinal: normoactive bowel sounds, soft, non-tender, non-distended Integumentary: rash Extremities: no cyanosis, no edema, pulses normal, no ischemia or petechiae Neurologic: non-focal exam (grossly), pupils equal and round Psychiatric: other (unable to assess) CBC and BMP: 01/21/19 04:47 01/21/19 04:47 ABG, PT/INR, D-dimer: ABG POC ABG pH 7.518 (7.35-7.45) H 01/20/19 16:07 POC ABG pCO2 37.5 (35-45) 01/20/19 16:07 POC ABG pO2 210 (80-105) H 01/20/19 16:07 POC ABG HCO3 30.4 (22-26 mml/L) 01/20/19 16:07 POC ABG Total CO2 32 (23-27mmol/L) 01/20/19 16:07 POC ABG O2 Sat 100 01/20/19 16:07 PT/INR, D-dimer PT 14.2 Sec. (12.2-14.9) 01/14/19 05:13 INR 1.11 (0.87-1.13) 01/14/19 05:13 D-Dimer 135.00 ng/mlDDU (0-234) 01/13/19 00:27 Abnormal lab findings: Abnormal Labs 01/13/19 01/13/19 01/13/19 00:27 00:27 00:27 RBC 3.36 L Hgb Hct Lymph % (Auto) 4.2 L [place] % (Auto) Lymph # 0.3 L Seg Neutrophils % 89.1 H APTT POC ABG pH POC ABG pCO2 POC ABG pO2 VBG pH 7.178 L* Sodium Chloride 109.1 H Carbon Dioxide 20 L BUN 29 H Creatinine Glucose 175 H POC Glucose Lactic Acid Calcium 7.8 L AST ALT CK-MB (CK-2) 7.7 H CK-MB (CK-2) Rel Index 7.2 H Total Protein 6.0 L Albumin 3.3 L Ur Specific [place] 01/13/19 01/13/19 01/13/19 00:27 02:14 02:22 RBC Hgb Hct Lymph % (Auto) [place] % (Auto) Lymph # Seg Neutrophils % APTT POC ABG pH 7.276 L POC ABG pCO2 49.4 H POC ABG pO2 156 H VBG pH Sodium Chloride Carbon Dioxide BUN Creatinine Glucose POC Glucose Lactic Acid 2.90 H* 0.30 L Calcium AST ALT CK-MB (CK-2) CK-MB (CK-2) Rel Index Total Protein Albumin Ur Specific [place] 01/13/19 01/13/19 01/14/19 02:22 02:34 05:13 RBC 2.96 L Hgb 9.3 L Hct 27.4 L Lymph % (Auto) [place] % (Auto) 11.9 H Lymph # Seg Neutrophils % APTT 39.4 H POC ABG pH POC ABG pCO2 POC ABG pO2 VBG pH Sodium Chloride Carbon Dioxide BUN Creatinine Glucose POC Glucose Lactic Acid Calcium AST ALT CK-MB (CK-2) CK-MB (CK-2) Rel Index Total Protein Albumin Ur Specific [place] 1.051 H 01/14/19 01/14/19 01/15/19 05:13 06:06 04:31 RBC Hgb Hct Lymph % (Auto) [place] % (Auto) Lymph # Seg Neutrophils % APTT POC ABG pH POC ABG pCO2 33.7 L POC ABG pO2 121 H 114 H VBG pH Sodium Chloride Carbon Dioxide 21 L BUN 22 H Creatinine 0.6 L Glucose 62 L POC Glucose Lactic Acid Calcium 8.0 L AST ALT CK-MB (CK-2) CK-MB (CK-2) Rel Index Total Protein Albumin Ur Specific [place] 01/15/19 01/15/19 01/16/19 08:51 10:07 02:56 RBC Hgb Hct Lymph % (Auto) [place] % (Auto) Lymph # Seg Neutrophils % APTT POC ABG pH POC ABG pCO2 POC ABG pO2 VBG pH Sodium Chloride Carbon Dioxide BUN Creatinine Glucose POC Glucose < 40 L 158 H 142 H Lactic Acid Calcium AST ALT CK-MB (CK-2) CK-MB (CK-2) Rel Index Total Protein Albumin Ur Specific [place] 01/16/19 01/17/19 01/17/19 17:54 04:06 04:23 RBC Hgb Hct Lymph % (Auto) [place] % (Auto) Lymph # Seg Neutrophils % APTT POC ABG pH POC ABG pCO2 33.7 L POC ABG pO2 VBG pH Sodium Chloride Carbon Dioxide BUN Creatinine Glucose POC Glucose 123 H 161 H Lactic Acid Calcium AST ALT CK-MB (CK-2) CK-MB (CK-2) Rel Index Total Protein Albumin Ur Specific [place] 01/17/19 01/18/19 01/19/19 11:20 04:34 11:55 RBC Hgb Hct Lymph % (Auto) [place] % (Auto) Lymph # Seg Neutrophils % APTT POC ABG pH 7.498 H 7.484 H POC ABG pCO2 32.1 L POC ABG pO2 121 H 52 L VBG pH Sodium Chloride Carbon Dioxide BUN Creatinine Glucose POC Glucose Lactic Acid Calcium AST ALT CK-MB (CK-2) CK-MB (CK-2) Rel Index Total Protein Albumin Ur Specific [place] 01/19/19 01/20/19 01/20/19 23:45 06:30 13:22 RBC Hgb Hct Lymph % (Auto) [place] % (Auto) Lymph # Seg Neutrophils % APTT POC ABG pH POC ABG pCO2 POC ABG pO2 VBG pH Sodium Chloride Carbon Dioxide BUN Creatinine Glucose POC Glucose 128 H 107 H 149 H Lactic Acid Calcium AST ALT CK-MB (CK-2) CK-MB (CK-2) Rel Index Total Protein Albumin Ur Specific [place] 01/20/19 01/20/19 01/20/19 16:07 18:11 22:53 RBC Hgb Hct Lymph % (Auto) [place] % (Auto) Lymph # Seg Neutrophils % APTT POC ABG pH 7.518 H POC ABG pCO2 POC ABG pO2 210 H VBG pH Sodium Chloride Carbon Dioxide BUN Creatinine Glucose POC Glucose 139 H 166 H Lactic Acid Calcium AST ALT CK-MB (CK-2) CK-MB (CK-2) Rel Index Total Protein Albumin Ur Specific [place] 01/21/19 01/21/19 01/21/19 04:36 04:47 04:47 RBC 2.89 L Hgb 8.9 L Hct 26.7 L Lymph % (Auto) 13.0 L [place] % (Auto) 9.6 H Lymph # 0.7 L Seg Neutrophils % 77.0 H APTT POC ABG pH POC ABG pCO2 POC ABG pO2 VBG pH Sodium 134 L Chloride 96.9 L Carbon Dioxide BUN 18 H Creatinine 0.4 L Glucose 138 H POC Glucose 138 H Lactic Acid Calcium 8.0 L AST 171 H ALT 102 H CK-MB (CK-2) CK-MB (CK-2) Rel Index Total Protein 5.6 L Albumin 2.2 L Ur Specific [place] 01/22/19 01/22/19 01/22/19 00:31 05:27 12:16 RBC Hgb Hct Lymph % (Auto) [place] % (Auto) Lymph # Seg Neutrophils % APTT POC ABG pH POC ABG pCO2 POC ABG pO2 VBG pH Sodium Chloride Carbon Dioxide BUN Creatinine Glucose POC Glucose 113 H 106 H 113 H Lactic Acid Calcium AST ALT CK-MB (CK-2) CK-MB (CK-2) Rel Index Total Protein Albumin Ur Specific [place] 01/23/19 01/23/19 01/23/19 00:35 05:43 11:55 RBC Hgb Hct Lymph % (Auto) [place] % (Auto) Lymph # Seg Neutrophils % APTT POC ABG pH POC ABG pCO2 POC ABG pO2 VBG pH Sodium Chloride Carbon Dioxide BUN Creatinine Glucose POC Glucose 120 H 139 H 119 H Lactic Acid Calcium AST ALT CK-MB (CK-2) CK-MB (CK-2) Rel Index Total Protein Albumin Ur Specific [place] Allied health notes reviewed: RT
[2019-01-23] MEDS: QUEtiapine 200 MG TAB PO SCH (22:59)
[2019-01-23] MEDS: HALOPERIDOL 5 MG TAB PO SCH (22:59)
[2019-01-24] MEDS: IPRATROPIUM/ALBUTEROL SULFATE 3 ML AMPUL.NEB IH SCH ×4 (01:39→21:23)
[2019-01-24] MEDS ORDERED: ALBUTEROL 2.5 MG/3 ML NEBU IH ONE (08:09)
--- NOTE | 2019-01-24 09:33 | Progress Note ---
Assessment and Plan Patient awake. Still not following commands. Patient is on 3 litres O2. O2 saturation 99%. No acute respiratory distress.Bipap on standby in the room. - Patient Problems (1) Respiratory failure requiring intubation Current Visit: Yes Status: Acute Plan to address problem: Patient intubated and extubated presently resting on 3 l of O2. [id number] running at 99% (2) Cerebral palsy Current Visit: Yes Status: Acute Plan to address problem: Aspiration precautions management as per primary care (3) Constipation Current Visit: Yes Status: Acute Plan to address problem: Management as per primary care team (4) Ileus Current Visit: Yes Status: Acute Plan to address problem: Management as per primary care team Subjective Date of service: 01/24/19 Principal diagnosis: Ac Hypoxemic and Hypercapnic Resp failure; Anemia; Cerebral palsy Interval history: Patient awake. Still not following commands. Patient is on 3 litres O2. O2 saturation 99%. No acute respiratory distress. BIPAP standby in the room. Objective Vital Signs - 12hr 01/23/19 01/23/19 01/23/19 21:53 21:54 22:00 Temperature Pulse Rate Pulse Rate [ 96 H Bilateral Throughout] Pulse Rate [ 100 H From Monitor] Respiratory 21 Rate Respiratory 20 Rate [Bilateral Throughout] Blood Pressure Blood Pressure [Right] O2 Sat by Pulse 100 99 Oximetry 01/24/19 01/24/19 01/24/19 01:32 01:39 02:00 Temperature 97.8 F Pulse Rate 100 H 100 H Pulse Rate [ 102 H Bilateral Throughout] Pulse Rate [ From Monitor] Respiratory 21 20 Rate Respiratory 20 Rate [Bilateral Throughout] Blood Pressure Blood Pressure 126/67 [Right] O2 Sat by Pulse 99 94 Oximetry 01/24/19 01/24/19 01/24/19 07:51 08:00 08:34 Temperature Pulse Rate 101 H Pulse Rate [ 104 H Bilateral Throughout] Pulse Rate [ From Monitor] Respiratory 22 20 Rate Respiratory 20 Rate [Bilateral Throughout] Blood Pressure 108/71 Blood Pressure [Right] O2 Sat by Pulse 100 Oximetry 01/24/19 08:36 Temperature Pulse Rate Pulse Rate [ Bilateral Throughout] Pulse Rate [ From Monitor] Respiratory Rate Respiratory Rate [Bilateral Throughout] Blood Pressure Blood Pressure [Right] O2 Sat by Pulse 99 Oximetry Constitutional: no acute distress, alert Eyes: non-icteric ENT: oropharynx moist, other (BIPAP) Neck: supple, no lymphadenopathy, no JVD Effort: normal Ascultation: Bilateral: rales, rhonchi, other (referred upper airway sounds) Percussion: Bilateral: not dull Cardiovascular: regular rate and rhythm, other (S1,S2) Gastrointestinal: normoactive bowel sounds, soft, non-tender, non-distended Integumentary: rash Extremities: no cyanosis, no edema, pulses normal, no ischemia or petechiae Neurologic: non-focal exam (grossly), pupils equal and round Psychiatric: other (unable to assess) CBC and BMP: 01/21/19 04:47 01/21/19 04:47 ABG, PT/INR, D-dimer: ABG POC ABG pH 7.518 (7.35-7.45) H 01/20/19 16:07 POC ABG pCO2 37.5 (35-45) 01/20/19 16:07 POC ABG pO2 210 (80-105) H 01/20/19 16:07 POC ABG HCO3 30.4 (22-26 mml/L) 01/20/19 16:07 POC ABG Total CO2 32 (23-27mmol/L) 01/20/19 16:07 POC ABG O2 Sat 100 01/20/19 16:07 PT/INR, D-dimer PT 14.2 Sec. (12.2-14.9) 01/14/19 05:13 INR 1.11 (0.87-1.13) 01/14/19 05:13 D-Dimer 135.00 ng/mlDDU (0-234) 01/13/19 00:27 Abnormal lab findings: Abnormal Labs 01/13/19 01/13/19 01/13/19 00:27 00:27 00:27 RBC 3.36 L Hgb Hct Lymph % (Auto) 4.2 L Rich % (Auto) Lymph # 0.3 L Seg Neutrophils % 89.1 H APTT POC ABG pH POC ABG pCO2 POC ABG pO2 VBG pH 7.178 L* Sodium Chloride 109.1 H Carbon Dioxide 20 L BUN 29 H Creatinine Glucose 175 H POC Glucose Lactic Acid Calcium 7.8 L AST ALT CK-MB (CK-2) 7.7 H CK-MB (CK-2) Rel Index 7.2 H Total Protein 6.0 L Albumin 3.3 L Ur Specific [place] 01/13/19 01/13/19 01/13/19 00:27 02:14 02:22 RBC Hgb Hct Lymph % (Auto) Rich % (Auto) Lymph # Seg Neutrophils % APTT POC ABG pH 7.276 L POC ABG pCO2 49.4 H POC ABG pO2 156 H VBG pH Sodium Chloride Carbon Dioxide BUN Creatinine Glucose POC Glucose Lactic Acid 2.90 H* 0.30 L Calcium AST ALT CK-MB (CK-2) CK-MB (CK-2) Rel Index Total Protein Albumin Ur Specific [place] 01/13/19 01/13/19 01/14/19 02:22 02:34 05:13 RBC 2.96 L Hgb 9.3 L Hct 27.4 L Lymph % (Auto) Rich % (Auto) 11.9 H Lymph # Seg Neutrophils % APTT 39.4 H POC ABG pH POC ABG pCO2 POC ABG pO2 VBG pH Sodium Chloride Carbon Dioxide BUN Creatinine Glucose POC Glucose Lactic Acid Calcium AST ALT CK-MB (CK-2) CK-MB (CK-2) Rel Index Total Protein Albumin Ur Specific [place] 1.051 H 01/14/19 01/14/19 01/15/19 05:13 06:06 04:31 RBC Hgb Hct Lymph % (Auto) Rich % (Auto) Lymph # Seg Neutrophils % APTT POC ABG pH POC ABG pCO2 33.7 L POC ABG pO2 121 H 114 H VBG pH Sodium Chloride Carbon Dioxide 21 L BUN 22 H Creatinine 0.6 L Glucose 62 L POC Glucose Lactic Acid Calcium 8.0 L AST ALT CK-MB (CK-2) CK-MB (CK-2) Rel Index Total Protein Albumin Ur Specific [place] 01/15/19 01/15/19 01/16/19 08:51 10:07 02:56 RBC Hgb Hct Lymph % (Auto) Rich % (Auto) Lymph # Seg Neutrophils % APTT POC ABG pH POC ABG pCO2 POC ABG pO2 VBG pH Sodium Chloride Carbon Dioxide BUN Creatinine Glucose POC Glucose < 40 L 158 H 142 H Lactic Acid Calcium AST ALT CK-MB (CK-2) CK-MB (CK-2) Rel Index Total Protein Albumin Ur Specific [place] 01/16/19 01/17/19 01/17/19 17:54 04:06 04:23 RBC Hgb Hct Lymph % (Auto) Rich % (Auto) Lymph # Seg Neutrophils % APTT POC ABG pH POC ABG pCO2 33.7 L POC ABG pO2 VBG pH Sodium Chloride Carbon Dioxide BUN Creatinine Glucose POC Glucose 123 H 161 H Lactic Acid Calcium AST ALT CK-MB (CK-2) CK-MB (CK-2) Rel Index Total Protein Albumin Ur Specific [place] 01/17/19 01/18/19 01/19/19 11:20 04:34 11:55 RBC Hgb Hct Lymph % (Auto) Rich % (Auto) Lymph # Seg Neutrophils % APTT POC ABG pH 7.498 H 7.484 H POC ABG pCO2 32.1 L POC ABG pO2 121 H 52 L VBG pH Sodium Chloride Carbon Dioxide BUN Creatinine Glucose POC Glucose Lactic Acid Calcium AST ALT CK-MB (CK-2) CK-MB (CK-2) Rel Index Total Protein Albumin Ur Specific [place] 01/19/19 01/20/19 01/20/19 23:45 06:30 13:22 RBC Hgb Hct Lymph % (Auto) Rich % (Auto) Lymph # Seg Neutrophils % APTT POC ABG pH POC ABG pCO2 POC ABG pO2 VBG pH Sodium Chloride Carbon Dioxide BUN Creatinine Glucose POC Glucose 128 H 107 H 149 H Lactic Acid Calcium AST ALT CK-MB (CK-2) CK-MB (CK-2) Rel Index Total Protein Albumin Ur Specific [place] 01/20/19 01/20/19 01/20/19 16:07 18:11 22:53 RBC Hgb Hct Lymph % (Auto) Rich % (Auto) Lymph # Seg Neutrophils % APTT POC ABG pH 7.518 H POC ABG pCO2 POC ABG pO2 210 H VBG pH Sodium Chloride Carbon Dioxide BUN Creatinine Glucose POC Glucose 139 H 166 H Lactic Acid Calcium AST ALT CK-MB (CK-2) CK-MB (CK-2) Rel Index Total Protein Albumin Ur Specific [place] 01/21/19 01/21/19 01/21/19 04:36 04:47 04:47 RBC 2.89 L Hgb 8.9 L Hct 26.7 L Lymph % (Auto) 13.0 L Rich % (Auto) 9.6 H Lymph # 0.7 L Seg Neutrophils % 77.0 H APTT POC ABG pH POC ABG pCO2 POC ABG pO2 VBG pH Sodium 134 L Chloride 96.9 L Carbon Dioxide BUN 18 H Creatinine 0.4 L Glucose 138 H POC Glucose 138 H Lactic Acid Calcium 8.0 L AST 171 H ALT 102 H CK-MB (CK-2) CK-MB (CK-2) Rel Index Total Protein 5.6 L Albumin 2.2 L Ur Specific [place] 01/22/19 01/22/19 01/22/19 00:31 05:27 12:16 RBC Hgb Hct Lymph % (Auto) Rich % (Auto) Lymph # Seg Neutrophils % APTT POC ABG pH POC ABG pCO2 POC ABG pO2 VBG pH Sodium Chloride Carbon Dioxide BUN Creatinine Glucose POC Glucose 113 H 106 H 113 H Lactic Acid Calcium AST ALT CK-MB (CK-2) CK-MB (CK-2) Rel Index Total Protein Albumin Ur Specific [place] 01/23/19 01/23/19 01/23/19 00:35 05:43 11:55 RBC Hgb Hct Lymph % (Auto) Rich % (Auto) Lymph # Seg Neutrophils % APTT POC ABG pH POC ABG pCO2 POC ABG pO2 VBG pH Sodium Chloride Carbon Dioxide BUN Creatinine Glucose POC Glucose 120 H 139 H 119 H Lactic Acid Calcium AST ALT CK-MB (CK-2) CK-MB (CK-2) Rel Index Total Protein Albumin Ur Specific [place] 01/23/19 01/24/19 01/24/19 18:34 00:40 05:42 RBC Hgb Hct Lymph % (Auto) Rich % (Auto) Lymph # Seg Neutrophils % APTT POC ABG pH POC ABG pCO2 POC ABG pO2 VBG pH Sodium Chloride Carbon Dioxide BUN Creatinine Glucose POC Glucose 146 H 136 H 119 H Lactic Acid Calcium AST ALT CK-MB (CK-2) CK-MB (CK-2) Rel Index Total Protein Albumin Ur Specific Excel Allied health notes reviewed: RT
--- NOTE | 2019-01-24 10:45 | Gastroenterology Progress Note ---
Assessment and Plan 1. PEG placement -s/p failed OUTSOLE CEMENTER MACHINE evaluation -discussed option of PEG placement with patient's sister to include nature of procedure, details of the technique, benefits, purpose, and risks including but limited to perforation, bleeding, infection, and independent risks of anesthesia. She is agreeable to proceed with procedure. -will tentatively schedule EGD/PEG for Tuesday01/26/19 -continue alternative method of nutrition for now (TFs via Dobhoff) -continue supportive care -electrolyte management per primary team -will follow 2.Fecal impaction-resolved -continue daily bowel regiment for constipation 3. Cerebral palsy Subjective Date of service: 01/24/19 Principal diagnosis: PEG Interval history: GI has been re-consulted on this patient for PEG placement after a failed OUTSOLE CEMENTER MACHINE evaluation. Currently tolerating TFs via Dobhoff. No evidence of abd pain or N/V. Objective - Constitutional Vitals: Temp Pulse Resp BP Pulse Ox 97.8 F 101 H 20 108/71 99 01/24/19 02:00 01/24/19 08:34 01/24/19 08:34 01/24/19 07:51 01/24/19 08:36 General appearance: no acute distress, other (nonverbal) - EENT ENT: other (+Dobhoff) - Respiratory Respiratory effort: normal Respiratory: bilateral: diminished - Cardiovascular Rhythm: other (tachycardia) - Gastrointestinal General gastrointestinal: Present: soft, non-distended, normal bowel sounds - Integumentary Integumentary: Present: warm, dry - Musculoskeletal Musculoskeletal: other (contracted) - Neurologic Neurological: other (alert) - Labs CBC & Chem 7: 01/21/19 04:47 01/21/19 04:47 Labs: Laboratory Results - last 24 hr 01/23/19 01/23/19 01/24/19 11:55 18:34 00:40 POC Glucose 119 H 146 H 136 H 01/24/19 05:42 POC Glucose 119 H
[2019-01-24] MEDS: FAMOTIDINE 20 MG TAB PO SCH ×2 (10:56→22:45)
[2019-01-24] MEDS: LORazepam 1 MG TAB PO SCH ×2 (10:56→22:45)
[2019-01-24] MEDS: HEPARIN 5,000 UNIT/1 ML VIAL SUB-Q SCH ×2 (10:56→22:54)
--- NOTE | 2019-01-24 12:48 | Progress Note ---
Assessment and Plan Assessment and plan: --Dysphagia ;Failed swallow evaluation, GI evaluation noted and appreciated, possible PEG placement Metabolic encephalopathy : Multifactorial, supportive care. Respiratory failure requiring intubation Extubated , On Bipap, when necessary Saturating well on nasal cannula oxygen Transaminitis ; Monitor LFTs closely, consult GI if needed Cerebral palsy Patient has known history of cerebral palsy. Fecal impaction Resolved, stool softeners as needed. Severe malnutrition /hypoalbuminemia Nutrition supplements, dietitian following Continue tube feeding DVT prophylaxis, On Heparin SQ Full code status. History Interval history: Patient seen and examined ,medical records. Clinically no change Patient noncommunicative awaiting PEG placement Hospitalist Physical - Constitutional Vitals: Temp Pulse Resp BP Pulse Ox 97.8 F 101 H 20 108/71 99 01/24/19 02:00 01/24/19 08:34 01/24/19 08:34 01/24/19 07:51 01/24/19 08:36 General appearance: Present: no acute distress, cachectic - EENT Eyes: Present: PERRL, EOM intact - Neck Neck: Present: supple, normal ROM - Respiratory Respiratory effort: normal Respiratory: bilateral: diminished, negative: rales, rhonchi, wheezing - Cardiovascular Rhythm: regular Heart Sounds: Present: S1 & S2 - Extremities Extremities: no ischemia, No edema - Abdominal General gastrointestinal: soft, non-tender, non-distended, normal bowel sounds - Integumentary Integumentary: Present: clear, warm - Psychiatric Psychiatric: other (noncommunicative) - Neurologic Neurologic: moves all extremities, other (residual weakness) Results - Labs CBC & Chem 7: 01/21/19 04:47 01/21/19 04:47 Labs: Laboratory Last Values WBC 5.5 K/mm3 (4.5-11.0) 01/21/19 04:47 RBC 2.89 M/mm3 (3.65-5.03) L 01/21/19 04:47 Hgb 8.9 gm/dl (10.1-14.3) L 01/21/19 04:47 Hct 26.7 % (30.3-42.9) L 01/21/19 04:47 MCV 93 fl (79-97) 01/21/19 04:47 MCH 31 pg (28-32) 01/21/19 04:47 MCHC 33 % (30-34) 01/21/19 04:47 RDW 13.5 % (13.2-15.2) 01/21/19 04:47 Plt Count 234 K/mm3 (140-440) 01/21/19 04:47 Lymph % (Auto) 13.0 % (13.4-35.0) L 01/21/19 04:47 [place] % (Auto) 9.6 % (0.0-7.3) H 01/21/19 04:47 Eos % (Auto) 0.2 % (0.0-4.3) 01/21/19 04:47 Baso % (Auto) 0.2 % (0.0-1.8) 01/21/19 04:47 Lymph # 0.7 K/mm3 (1.2-5.4) L 01/21/19 04:47 [place] # 0.5 K/mm3 (0.0-0.8) 01/21/19 04:47 Eos # 0.0 K/mm3 (0.0-0.4) 01/21/19 04:47 Baso # 0.0 K/mm3 (0.0-0.1) 01/21/19 04:47 Seg Neutrophils % 77.0 % (40.0-70.0) H 01/21/19 04:47 Seg Neutrophils # 4.2 K/mm3 (1.8-7.7) 01/21/19 04:47 PT 14.2 Sec. (12.2-14.9) 01/14/19 05:13 INR 1.11 (0.87-1.13) 01/14/19 05:13 APTT 31.9 Sec. (24.2-36.6) 01/14/19 05:13 D-Dimer 135.00 ng/mlDDU (0-234) 01/13/19 00:27 POC ABG pH 7.518 (7.35-7.45) H 01/20/19 16:07 POC ABG pCO2 37.5 (35-45) 01/20/19 16:07 POC ABG pO2 210 (80-105) H 01/20/19 16:07 POC ABG HCO3 30.4 (22-26 mml/L) 01/20/19 16:07 POC ABG Total CO2 32 (23-27mmol/L) 01/20/19 16:07 POC ABG O2 Sat 100 01/20/19 16:07 POC ABG Base Excess 8 ((-2) - (+3)mmol/L) 01/20/19 16:07 VBG pH 7.178 (7.320-7.420) L* 01/13/19 00:27 FiO2 50 % 01/20/19 16:07 Sodium 134 mmol/L (137-145) L 01/21/19 04:47 Potassium 3.7 mmol/L (3.6-5.0) 01/21/19 04:47 Chloride 96.9 mmol/L (98-107) L 01/21/19 04:47 Carbon Dioxide 25 mmol/L (22-30) 01/21/19 04:47 Anion Gap 16 mmol/L 01/21/19 04:47 BUN 18 mg/dL (7-17) H 01/21/19 04:47 Creatinine 0.4 mg/dL (0.7-1.2) L 01/21/19 04:47 Estimated GFR > 60 ml/min 01/21/19 04:47 BUN/Creatinine Ratio 45 % 01/21/19 04:47 Glucose 138 mg/dL (65-100) H 01/21/19 04:47 POC Glucose 117 (70-105) H 01/24/19 11:35 Lactic Acid 0.30 mmol/L (0.7-2.0) L 01/13/19 02:22 Calcium 8.0 mg/dL (8.4-10.2) L 01/21/19 04:47 Magnesium 2.10 mg/dL (1.7-2.3) 01/21/19 04:47 Total Bilirubin < 0.20 mg/dL (0.1-1.2) 01/21/19 04:47 AST 171 units/L (5-40) H 01/21/19 04:47 ALT 102 units/L (7-56) H 01/21/19 04:47 Alkaline Phosphatase 107 units/L (35-129) 01/21/19 04:47 Ammonia 25.0 umol/L (25-60) 01/13/19 00:27 Total Creatine Kinase 106 units/L (30-135) 01/13/19 00:27 CK-MB (CK-2) 7.7 ng/mL (0.0-4.0) H 01/13/19 00:27 CK-MB (CK-2) Rel Index 7.2 (0-4) H 01/13/19 00:27 Troponin T < 0.010 ng/mL (0.00-0.029) 01/13/19 00:27 NT-Pro-B Natriuret Pep 52.36 pg/mL (0-900) 01/13/19 00:27 Total Protein 5.6 g/dL (6.3-8.2) L 01/21/19 04:47 Albumin 2.2 g/dL (3.9-5) L 01/21/19 04:47 Albumin/Globulin Ratio 0.6 % 01/21/19 04:47 Urine Color Yellow (Yellow) 01/13/19 02:34 Urine Turbidity Slightly-cloudy (Clear) 01/13/19 02:34 Urine pH 5.0 (5.0-7.0) 01/13/19 02:34 Ur Specific [place] 1.051 (1.003-1.030) H 01/13/19 02:34 Urine Protein <15 mg/dl mg/dL (Negative) 01/13/19 02:34 Urine Glucose (UA) 50 mg/dL (Negative) 01/13/19 02:34 Urine Ketones Neg mg/dL (Negative) 01/13/19 02:34 Urine Blood Neg (Negative) 01/13/19 02:34 Urine Nitrite Neg (Negative) 01/13/19 02:34 Urine Bilirubin Neg (Negative) 01/13/19 02:34 Urine Urobilinogen < 2.0 mg/dL (<2.0) 01/13/19 02:34 Ur Leukocyte Esterase Neg (Negative) 01/13/19 02:34 Urine WBC (Auto) < 1.0 /HPF (0.0-6.0) 01/13/19 02:34 Urine RBC (Auto) < 1.0 /HPF (0.0-6.0) 01/13/19 02:34 U Epithel Cells (Auto) < 1.0 /HPF (0-13.0) 01/13/19 02:34 Urine Bacteria (Auto) 1+ /HPF (Negative) 01/13/19 02:34 Urine Mucus 1+ /HPF 01/13/19 02:34 Active Medications - Current Medications Current Medications: Generic Name Dose Route Start Last Admin Trade Name Freq PRN Reason Stop Dose Admin Acetaminophen 650 mg 01/13/19 04:55 Tylenol PA Q6H PRN Pain MILD(1-3)/Fever >100.5/WOOD Albuterol/Ipratropium 1 ampul 01/22/19 14:00 01/24/19 08:29 Duoneb *Not For Prn Use* IH Not Given Q6HRT JOAN Lipase/Protease/Amylase 1 each 01/19/19 13:12 Pancreaze 10,500 Unit FEEDTUBE PRN PRN For Clogged Feeding Tube Bisacodyl 10 mg 01/13/19 04:55 01/16/19 11:30 Dulcolax PA 10 mg QDAY PRN Administration constipation unrelieved by MOM Dextrose 25 ml 01/15/19 08:51 01/15/19 09:00 D50w (25gm) Syringe IV 25 ml Q30MIN PRN Administration Hypoglycemia Protocol Famotidine 20 mg 01/17/19 10:00 01/24/19 10:56 Pepcid PO 20 mg BID JOAN Administration Haloperidol 5 mg 01/15/19 22:00 01/23/19 22:59 Haldol PO 5 mg QHS JOAN Administration Heparin Sodium (Porcine) 5,000 unit 01/15/19 22:00 01/24/19 10:56 Heparin SUB-Q 5,000 unit Q12HR JOAN Administration Hydralazine HCl 10 mg 01/18/19 18:48 01/18/19 19:36 Apresoline IV 10 mg Q3HR PRN Administration SBP >/=160 Hydrophilic Ointment 1 applic 01/12/19 23:54 Vaseline Lip Therapy TP Q2HR PRN Dry Lips Lorazepam 1 mg 01/20/19 22:00 01/24/19 10:56 Ativan PO 1 mg BID JOAN Administration Multi-Ingred Cream/Lotion/Oil/Oint 1 applic 01/12/19 23:54 Artificial Tears Ophth Oint OU Q4HR PRN Dry Eye(s) Ondansetron HCl 4 mg 01/13/19 04:55 Zofran IV Q8H PRN Nausea And Vomiting Polyethylene Glycol 17 gm 01/25/19 10:00 Miralax 3350 PO QDAY JOAN Quetiapine Fumarate 400 mg 01/22/19 22:00 01/23/19 22:59 Seroquel PO 400 mg QHS JOAN Administration Simple Syrup 15 ml 01/19/19 13:12 Simple Syrup FEEDTUBE PRN PRN Hypoglycemia Simple Syrup 30 ml 01/19/19 13:12 Simple Syrup FEEDTUBE PRN PRN Hypoglycemia Sodium Bicarbonate 325 mg 01/19/19 13:12 Sodium Bicarbonate FEEDTUBE PRN PRN For Clogged Feeding Tube Sodium Chloride 10 ml 01/13/19 10:00 01/24/19 10:57 Sodium Chloride Flush Syringe 10 Ml IV 10 ml BID JOAN Administration Sodium Chloride 10 ml 01/13/19 04:55 Sodium Chloride Flush Syringe 10 Ml IV PRN PRN LINE FLUSH Nutrition/Malnutrition Assess - Dietary Evaluation Nutrition/Malnutrition Findings: Nutrition Notes Start: 01/13/19 12:10 Freq: Status: Active Protocol: Document 01/23/19 11:45 LM (Rec: 01/23/19 11:52 LM [email or web address]) Nutrition Notes Initial or Follow up Reassessment Current Diagnosis Respiratory Failure Other Pertinent Diagnosis Cerbral palsy, Seizure, fecal impaction, dehydration Current Diet Jevity 1.2 at 50 ml/hr Labs/Tests Poc glu 139 Pertinent Medications Reviewed Height 5 ft 2 in Weight 38 kg [place] Body Weight (kg) 50.00 BMI 15.3 Weight Status Underweight Subjective/Other Information RESISTOR TESTER recommends pt to be NPO. Jevity 1.2 running at 50 ml/hr . Pt tolerating TF. Percent of energy/protein needs met: 90%/100% Burn Absent Trauma Absent Current % PO Negligible Minimum of two criteria No #1 Nutrition Diagnosis Inadequate oral intake Etiology dysphagia As Evidenced by Signs and Symptoms RESISTOR TESTER recommends NPO Diagnosis Progress(for reassessment Continues documentation) Is patient on ventilator? No Is Patient Ambulatory and/or Out of Bed No REE-([facility]-confined to bed) 1041.972 Kcal/Kg value to use for calculation 42 Approximate Energy Requirements Using 1596 kcal/Kg Calculation Used for Recommendations Kcal/kg Additional Notes PRO: 38-46g/day (1.0-1.2g/kg) Fluid: 1 ml/kcal Nutrition Intervention Change Diet Order: TF diet Nutrition Support: Jevity 1.2 at 50ml/hr Water flush 100ml q4hr Kcal 1,440 Protein (gm) 67 Fluid (mL) 968 Goal #1 TF tolerance Goal #2 Meet at least 80% of energy and protein needs Anticipated Discharge Needs: Unable to determine at this time Follow-Up By: 01/30/19 Additional Comments F/U for TF rate/tolerance
[2019-01-24] MEDS: QUEtiapine 200 MG TAB PO SCH (22:22)
[2019-01-24] MEDS: HALOPERIDOL 5 MG TAB PO SCH (22:53)
[2019-01-25] MEDS: IPRATROPIUM/ALBUTEROL SULFATE 3 ML AMPUL.NEB IH SCH ×4 (02:30→20:41)
--- NOTE | 2019-01-25 09:30 | Progress Note ---
Assessment and Plan Acute Hypoxemic and Hypercapnic Respiratory failure requiring intubation Anemia (Normocytic) Acute Encephalopathy Cerebral palsy Fecal impaction - tentatively for EGD - prn BIPAP support for increased work of breathing - Robinul & scopolamine stopped re: oropharyngeal dryness - continue aspiration precautions (HOB > 40 degrees) - continue to wean FIO2 for O2 sats >90% - continue bronchodilators with pulmonary hygiene per RT - prn CXR's & ABG's at this point - continue agitation management / Pain management per CPOT (prn haldol) - continue VTE prophylaxis - continue stress ulcer prophylaxis - continue accuchecks with glycemic control for SSI (While critically ill target blood glucose of 140-180 mg/dL; avoid hypoglycemia) - Continue mobility protocol for pressure ulcer prevention - Continue to monitor hemodynamics closely - Monitor electrolyte profile closely and replete as indicated - continue chronic home medications per attending and as clinically indicated - continue other care per attending / other consultants CONDITION: FAIR PROGNOSIS: IMPROVED CODE STATUS: FULL CODE Subjective Date of service: 01/25/19 Principal diagnosis: Ac Hypoxemic and Hypercapnic Resp failure; Anemia; Cerebral palsy Interval history: Patient is seen today for: Acute Hypoxemic and Hypercapnic Respiratory failure; Anemia; Acute Encephalopathy; Cerebral palsy; Fecal impaction Seen and examined at bedside; 24hour events reviewed; nursing and respiratory care staff consulted; no adverse overnight events reported to me; resting in bed; doing better overall; stil with poor appetite / constipation / abd distention; no emesis or overt aspiration reported; non verbal Objective Vital Signs - 12hr 01/24/19 01/24/19 01/24/19 22:00 22:13 22:17 Temperature Pulse Rate Pulse Rate [ 100 H Bilateral Throughout] Pulse Rate [ 59 L From Monitor] Respiratory 20 Rate Respiratory 18 Rate [Bilateral Throughout] Blood Pressure O2 Sat by Pulse 99 Oximetry 01/25/19 01/25/19 01/25/19 02:30 02:34 07:31 Temperature 98.5 F 98.2 F Pulse Rate 99 H Pulse Rate [ 97 H Bilateral Throughout] Pulse Rate [ From Monitor] Respiratory 22 20 Rate Respiratory 18 Rate [Bilateral Throughout] Blood Pressure 97/61 129/82 O2 Sat by Pulse 98 Oximetry 01/25/19 01/25/19 08:00 08:25 Temperature Pulse Rate Pulse Rate [ 86 Bilateral Throughout] Pulse Rate [ From Monitor] Respiratory Rate Respiratory 18 Rate [Bilateral Throughout] Blood Pressure O2 Sat by Pulse 97 Oximetry Constitutional: no acute distress, other (elderly petite AAF, normocephalic with normal respiratory effort at rest) Eyes: non-icteric ENT: oropharynx dry Neck: supple, no lymphadenopathy, no JVD Effort: normal Ascultation: Bilateral: clear Percussion: Bilateral: not dull Cardiovascular: regular rate and rhythm, other (S1,S2) Gastrointestinal: normoactive bowel sounds, soft, non-tender, non-distended Integumentary: rash Extremities: no cyanosis, no edema, pulses normal, no ischemia or petechiae Neurologic: non-focal exam (grossly), pupils equal and round, other (somnolent) Psychiatric: other (Affect flat) CBC and BMP: 01/26/19 04:12 01/26/19 04:12 ABG, PT/INR, D-dimer: ABG POC ABG pH 7.518 (7.35-7.45) H 01/20/19 16:07 POC ABG pCO2 37.5 (35-45) 01/20/19 16:07 POC ABG pO2 210 (80-105) H 01/20/19 16:07 POC ABG HCO3 30.4 (22-26 mml/L) 01/20/19 16:07 POC ABG Total CO2 32 (23-27mmol/L) 01/20/19 16:07 POC ABG O2 Sat 100 01/20/19 16:07 PT/INR, D-dimer PT 14.2 Sec. (12.2-14.9) 01/14/19 05:13 INR 1.11 (0.87-1.13) 01/14/19 05:13 D-Dimer 135.00 ng/mlDDU (0-234) 01/13/19 00:27 Abnormal lab findings: Abnormal Labs 01/13/19 01/13/19 01/13/19 00:27 00:27 00:27 RBC 3.36 L Hgb Hct Lymph % (Auto) 4.2 L [place] % (Auto) Lymph # 0.3 L Seg Neutrophils % 89.1 H APTT POC ABG pH POC ABG pCO2 POC ABG pO2 VBG pH 7.178 L* Sodium Chloride 109.1 H Carbon Dioxide 20 L BUN 29 H Creatinine Glucose 175 H POC Glucose Lactic Acid Calcium 7.8 L AST ALT CK-MB (CK-2) 7.7 H CK-MB (CK-2) Rel Index 7.2 H Total Protein 6.0 L Albumin 3.3 L Ur Specific [place] 01/13/19 01/13/19 01/13/19 00:27 02:14 02:22 RBC Hgb Hct Lymph % (Auto) [place] % (Auto) Lymph # Seg Neutrophils % APTT POC ABG pH 7.276 L POC ABG pCO2 49.4 H POC ABG pO2 156 H VBG pH Sodium Chloride Carbon Dioxide BUN Creatinine Glucose POC Glucose Lactic Acid 2.90 H* 0.30 L Calcium AST ALT CK-MB (CK-2) CK-MB (CK-2) Rel Index Total Protein Albumin Ur Specific [place] 01/13/19 01/13/19 01/14/19 02:22 02:34 05:13 RBC 2.96 L Hgb 9.3 L Hct 27.4 L Lymph % (Auto) [place] % (Auto) 11.9 H Lymph # Seg Neutrophils % APTT 39.4 H POC ABG pH POC ABG pCO2 POC ABG pO2 VBG pH Sodium Chloride Carbon Dioxide BUN Creatinine Glucose POC Glucose Lactic Acid Calcium AST ALT CK-MB (CK-2) CK-MB (CK-2) Rel Index Total Protein Albumin Ur Specific [place] 1.051 H 01/14/19 01/14/19 01/15/19 05:13 06:06 04:31 RBC Hgb Hct Lymph % (Auto) [place] % (Auto) Lymph # Seg Neutrophils % APTT POC ABG pH POC ABG pCO2 33.7 L POC ABG pO2 121 H 114 H VBG pH Sodium Chloride Carbon Dioxide 21 L BUN 22 H Creatinine 0.6 L Glucose 62 L POC Glucose Lactic Acid Calcium 8.0 L AST ALT CK-MB (CK-2) CK-MB (CK-2) Rel Index Total Protein Albumin Ur Specific [place] 01/15/19 01/15/19 01/16/19 08:51 10:07 02:56 RBC Hgb Hct Lymph % (Auto) [place] % (Auto) Lymph # Seg Neutrophils % APTT POC ABG pH POC ABG pCO2 POC ABG pO2 VBG pH Sodium Chloride Carbon Dioxide BUN Creatinine Glucose POC Glucose < 40 L 158 H 142 H Lactic Acid Calcium AST ALT CK-MB (CK-2) CK-MB (CK-2) Rel Index Total Protein Albumin Ur Specific [place] 01/16/19 01/17/19 01/17/19 17:54 04:06 04:23 RBC Hgb Hct Lymph % (Auto) [place] % (Auto) Lymph # Seg Neutrophils % APTT POC ABG pH POC ABG pCO2 33.7 L POC ABG pO2 VBG pH Sodium Chloride Carbon Dioxide BUN Creatinine Glucose POC Glucose 123 H 161 H Lactic Acid Calcium AST ALT CK-MB (CK-2) CK-MB (CK-2) Rel Index Total Protein Albumin Ur Specific [place] 01/17/19 01/18/19 01/19/19 11:20 04:34 11:55 RBC Hgb Hct Lymph % (Auto) [place] % (Auto) Lymph # Seg Neutrophils % APTT POC ABG pH 7.498 H 7.484 H POC ABG pCO2 32.1 L POC ABG pO2 121 H 52 L VBG pH Sodium Chloride Carbon Dioxide BUN Creatinine Glucose POC Glucose Lactic Acid Calcium AST ALT CK-MB (CK-2) CK-MB (CK-2) Rel Index Total Protein Albumin Ur Specific [place] 01/19/19 01/20/19 01/20/19 23:45 06:30 13:22 RBC Hgb Hct Lymph % (Auto) [place] % (Auto) Lymph # Seg Neutrophils % APTT POC ABG pH POC ABG pCO2 POC ABG pO2 VBG pH Sodium Chloride Carbon Dioxide BUN Creatinine Glucose POC Glucose 128 H 107 H 149 H Lactic Acid Calcium AST ALT CK-MB (CK-2) CK-MB (CK-2) Rel Index Total Protein Albumin Ur Specific [place] 01/20/19 01/20/19 01/20/19 16:07 18:11 22:53 RBC Hgb Hct Lymph % (Auto) [place] % (Auto) Lymph # Seg Neutrophils % APTT POC ABG pH 7.518 H POC ABG pCO2 POC ABG pO2 210 H VBG pH Sodium Chloride Carbon Dioxide BUN Creatinine Glucose POC Glucose 139 H 166 H Lactic Acid Calcium AST ALT CK-MB (CK-2) CK-MB (CK-2) Rel Index Total Protein Albumin Ur Specific [place] 01/21/19 01/21/19 01/21/19 04:36 04:47 04:47 RBC 2.89 L Hgb 8.9 L Hct 26.7 L Lymph % (Auto) 13.0 L [place] % (Auto) 9.6 H Lymph # 0.7 L Seg Neutrophils % 77.0 H APTT POC ABG pH POC ABG pCO2 POC ABG pO2 VBG pH Sodium 134 L Chloride 96.9 L Carbon Dioxide BUN 18 H Creatinine 0.4 L Glucose 138 H POC Glucose 138 H Lactic Acid Calcium 8.0 L AST 171 H ALT 102 H CK-MB (CK-2) CK-MB (CK-2) Rel Index Total Protein 5.6 L Albumin 2.2 L Ur Specific [place] 01/22/19 01/22/19 01/22/19 00:31 05:27 12:16 RBC Hgb Hct Lymph % (Auto) [place] % (Auto) Lymph # Seg Neutrophils % APTT POC ABG pH POC ABG pCO2 POC ABG pO2 VBG pH Sodium Chloride Carbon Dioxide BUN Creatinine Glucose POC Glucose 113 H 106 H 113 H Lactic Acid Calcium AST ALT CK-MB (CK-2) CK-MB (CK-2) Rel Index Total Protein Albumin Ur Specific [place] 01/23/19 01/23/19 01/23/19 00:35 05:43 11:55 RBC Hgb Hct Lymph % (Auto) [place] % (Auto) Lymph # Seg Neutrophils % APTT POC ABG pH POC ABG pCO2 POC ABG pO2 VBG pH Sodium Chloride Carbon Dioxide BUN Creatinine Glucose POC Glucose 120 H 139 H 119 H Lactic Acid Calcium AST ALT CK-MB (CK-2) CK-MB (CK-2) Rel Index Total Protein Albumin Ur Specific [place] 01/23/19 01/24/19 01/24/19 18:34 00:40 05:42 RBC Hgb Hct Lymph % (Auto) [place] % (Auto) Lymph # Seg Neutrophils % APTT POC ABG pH POC ABG pCO2 POC ABG pO2 VBG pH Sodium Chloride Carbon Dioxide BUN Creatinine Glucose POC Glucose 146 H 136 H 119 H Lactic Acid Calcium AST ALT CK-MB (CK-2) CK-MB (CK-2) Rel Index Total Protein Albumin Ur Specific [place] 01/24/19 01/25/19 01/25/19 11:35 00:09 06:30 RBC Hgb Hct Lymph % (Auto) [place] % (Auto) Lymph # Seg Neutrophils % APTT POC ABG pH POC ABG pCO2 POC ABG pO2 VBG pH Sodium Chloride Carbon Dioxide BUN Creatinine Glucose POC Glucose 117 H 119 H 127 H Lactic Acid Calcium AST ALT CK-MB (CK-2) CK-MB (CK-2) Rel Index Total Protein Albumin Ur Specific [place] Chest x-ray: other (none for review today) Allied health notes reviewed: nursing
[2019-01-25] MEDS: FAMOTIDINE 20 MG TAB PO SCH (10:09)
[2019-01-25] MEDS: POLYETHYLENE GLYCOL 3350 17 GM POWDER PO SCH (10:09)
[2019-01-25] MEDS: LORazepam 1 MG TAB PO SCH ×2 (10:09→22:05)
[2019-01-25] MEDS: HEPARIN 5,000 UNIT/1 ML VIAL SUB-Q SCH ×2 (10:10→22:05)
[2019-01-25] MEDS ORDERED: MAGNESIUM CITRATE 300 ML ORAL LIQD PO ONE (11:30)
--- NOTE | 2019-01-25 11:37 | Gastroenterology Progress Note ---
Assessment and Plan - Patient Problems (1) Neurogenic dysphagia Current Visit: Yes Status: Acute Plan to address problem: - Attempted call sister to confirm EGD/PEG for 01/26 (not at home). - Will place on schedule for tomorrow, and re-attempt to contact family (had already given verbal consent to EMERGENCY ROOM REGISTERED NURSE Gonzales earlier this week). - Will check AM KUB and given Mg Citrate x 1 given mild abdominal distention. (2) Fecal impaction Current Visit: Yes Status: Acute Plan to address problem: - Disimpaction last week via Dobhoff tube. - (+) stool in rectal tube, but abdomen is moderately distended; will check AM KUB before proceeding to EGD/PEG, as well a give another dose of Mg Citrate today. - CT reviewed; stomach lumen appears to be in acceptable location to place PEG endoscopically. Subjective Date of service: 01/25/19 Principal diagnosis: Neurogenic Dysphagia Interval history: Patient is alert but nonverbal. No apparent distress. Tolerating tube feeds at 50ml/hour without N/V per nursing. Objective - Constitutional Vitals: Temp Pulse Resp BP Pulse Ox 98.2 F 86 18 129/82 97 01/25/19 07:31 01/25/19 08:00 01/25/19 08:00 01/25/19 07:31 01/25/19 08:25 General appearance: no acute distress - EENT ENT: other (Dobhoff present.) - Respiratory Respiratory effort: normal Respiratory: bilateral: CTA - Cardiovascular Rhythm: regular Heart Sounds: Present: S1 & S2 - Gastrointestinal General gastrointestinal: Present: soft, non-tender, distended (Moderate distention; (+) bowel sounds (normal); stool in rectal tube) - Labs CBC & Chem 7: 01/21/19 04:47 01/21/19 04:47 Labs: Laboratory Results - last 24 hr 01/24/19 01/24/19 01/25/19 11:35 18:31 00:09 POC Glucose 117 H 104 119 H 01/25/19 06:30 POC Glucose 127 H
--- NOTE | 2019-01-25 15:27 | Progress Note ---
Assessment and Plan Assessment and plan: --Dysphagia ;Failed swallow evaluation, GI evaluation noted and appreciated, possible PEG placement tomorrow Metabolic encephalopathy : Multifactorial, supportive care. Respiratory failure requiring intubation Extubated , On Bipap, when necessary Saturating well on nasal cannula oxygen Transaminitis ; Monitor LFTs closely, consult GI if needed Cerebral palsy Patient has known history of cerebral palsy. Fecal impaction Resolved, stool softeners as needed. Severe malnutrition /hypoalbuminemia Nutrition supplements, dietitian following Continue tube feeding DVT prophylaxis, On Heparin SQ. Full code status. f/u PEG Placement, PEG feeding If able to tolerate and if patient is stable may be discharged Home with home health versus subacute rehabilitation History Interval history: Patient seen and examined medical records The patient is alert and awake noncommunicative Cachectic emaciated Right vital signs reviewed Scheduled for PEG placement tomorrow This evening acute feeding NPO from midnight Hospitalist Physical - Constitutional Vitals: Temp Pulse Resp BP Pulse Ox 98.4 F 79 18 115/77 97 01/25/19 12:47 01/25/19 15:06 01/25/19 15:06 01/25/19 12:47 01/25/19 08:25 General appearance: Present: no acute distress, cachectic - EENT Eyes: Present: PERRL, EOM intact - Neck Neck: Present: supple, normal ROM - Respiratory Respiratory effort: normal Respiratory: bilateral: diminished, negative: rales, rhonchi, wheezing - Cardiovascular Rhythm: regular Heart Sounds: Present: S1 & S2 - Extremities Extremities: no ischemia, No edema - Abdominal General gastrointestinal: soft, non-tender, non-distended, normal bowel sounds - Integumentary Integumentary: Present: clear, warm - Psychiatric Psychiatric: other (noncommunicative) - Neurologic Neurologic: other (residual weakness) Results - Labs CBC & Chem 7: 01/21/19 04:47 01/21/19 04:47 Labs: Laboratory Last Values WBC 5.5 K/mm3 (4.5-11.0) 01/21/19 04:47 RBC 2.89 M/mm3 (3.65-5.03) L 01/21/19 04:47 Hgb 8.9 gm/dl (10.1-14.3) L 01/21/19 04:47 Hct 26.7 % (30.3-42.9) L 01/21/19 04:47 MCV 93 fl (79-97) 01/21/19 04:47 MCH 31 pg (28-32) 01/21/19 04:47 MCHC 33 % (30-34) 01/21/19 04:47 RDW 13.5 % (13.2-15.2) 01/21/19 04:47 Plt Count 234 K/mm3 (140-440) 01/21/19 04:47 Lymph % (Auto) 13.0 % (13.4-35.0) L 01/21/19 04:47 [place] % (Auto) 9.6 % (0.0-7.3) H 01/21/19 04:47 Eos % (Auto) 0.2 % (0.0-4.3) 01/21/19 04:47 Baso % (Auto) 0.2 % (0.0-1.8) 01/21/19 04:47 Lymph # 0.7 K/mm3 (1.2-5.4) L 01/21/19 04:47 [place] # 0.5 K/mm3 (0.0-0.8) 01/21/19 04:47 Eos # 0.0 K/mm3 (0.0-0.4) 01/21/19 04:47 Baso # 0.0 K/mm3 (0.0-0.1) 01/21/19 04:47 Seg Neutrophils % 77.0 % (40.0-70.0) H 01/21/19 04:47 Seg Neutrophils # 4.2 K/mm3 (1.8-7.7) 01/21/19 04:47 PT 14.2 Sec. (12.2-14.9) 01/14/19 05:13 INR 1.11 (0.87-1.13) 01/14/19 05:13 APTT 31.9 Sec. (24.2-36.6) 01/14/19 05:13 D-Dimer 135.00 ng/mlDDU (0-234) 01/13/19 00:27 POC ABG pH 7.518 (7.35-7.45) H 01/20/19 16:07 POC ABG pCO2 37.5 (35-45) 01/20/19 16:07 POC ABG pO2 210 (80-105) H 01/20/19 16:07 POC ABG HCO3 30.4 (22-26 mml/L) 01/20/19 16:07 POC ABG Total CO2 32 (23-27mmol/L) 01/20/19 16:07 POC ABG O2 Sat 100 01/20/19 16:07 POC ABG Base Excess 8 ((-2) - (+3)mmol/L) 01/20/19 16:07 VBG pH 7.178 (7.320-7.420) L* 01/13/19 00:27 FiO2 50 % 01/20/19 16:07 Sodium 134 mmol/L (137-145) L 01/21/19 04:47 Potassium 3.7 mmol/L (3.6-5.0) 01/21/19 04:47 Chloride 96.9 mmol/L (98-107) L 01/21/19 04:47 Carbon Dioxide 25 mmol/L (22-30) 01/21/19 04:47 Anion Gap 16 mmol/L 01/21/19 04:47 BUN 18 mg/dL (7-17) H 01/21/19 04:47 Creatinine 0.4 mg/dL (0.7-1.2) L 01/21/19 04:47 Estimated GFR > 60 ml/min 01/21/19 04:47 BUN/Creatinine Ratio 45 % 01/21/19 04:47 Glucose 138 mg/dL (65-100) H 01/21/19 04:47 POC Glucose 109 (70-105) H 01/25/19 12:10 Lactic Acid 0.30 mmol/L (0.7-2.0) L 01/13/19 02:22 Calcium 8.0 mg/dL (8.4-10.2) L 01/21/19 04:47 Magnesium 2.10 mg/dL (1.7-2.3) 01/21/19 04:47 Total Bilirubin < 0.20 mg/dL (0.1-1.2) 01/21/19 04:47 AST 171 units/L (5-40) H 01/21/19 04:47 ALT 102 units/L (7-56) H 01/21/19 04:47 Alkaline Phosphatase 107 units/L (35-129) 01/21/19 04:47 Ammonia 25.0 umol/L (25-60) 01/13/19 00:27 Total Creatine Kinase 106 units/L (30-135) 01/13/19 00:27 CK-MB (CK-2) 7.7 ng/mL (0.0-4.0) H 01/13/19 00:27 CK-MB (CK-2) Rel Index 7.2 (0-4) H 01/13/19 00:27 Troponin T < 0.010 ng/mL (0.00-0.029) 01/13/19 00:27 NT-Pro-B Natriuret Pep 52.36 pg/mL (0-900) 01/13/19 00:27 Total Protein 5.6 g/dL (6.3-8.2) L 01/21/19 04:47 Albumin 2.2 g/dL (3.9-5) L 01/21/19 04:47 Albumin/Globulin Ratio 0.6 % 01/21/19 04:47 Urine Color Yellow (Yellow) 01/13/19 02:34 Urine Turbidity Slightly-cloudy (Clear) 01/13/19 02:34 Urine pH 5.0 (5.0-7.0) 01/13/19 02:34 Ur Specific [place] 1.051 (1.003-1.030) H 01/13/19 02:34 Urine Protein <15 mg/dl mg/dL (Negative) 01/13/19 02:34 Urine Glucose (UA) 50 mg/dL (Negative) 01/13/19 02:34 Urine Ketones Neg mg/dL (Negative) 01/13/19 02:34 Urine Blood Neg (Negative) 01/13/19 02:34 Urine Nitrite Neg (Negative) 01/13/19 02:34 Urine Bilirubin Neg (Negative) 01/13/19 02:34 Urine Urobilinogen < 2.0 mg/dL (<2.0) 01/13/19 02:34 Ur Leukocyte Esterase Neg (Negative) 01/13/19 02:34 Urine WBC (Auto) < 1.0 /HPF (0.0-6.0) 01/13/19 02:34 Urine RBC (Auto) < 1.0 /HPF (0.0-6.0) 01/13/19 02:34 U Epithel Cells (Auto) < 1.0 /HPF (0-13.0) 01/13/19 02:34 Urine Bacteria (Auto) 1+ /HPF (Negative) 01/13/19 02:34 Urine Mucus 1+ /HPF 01/13/19 02:34 Active Medications - Current Medications Current Medications: Generic Name Dose Route Start Last Admin Trade Name Freq PRN Reason Stop Dose Admin Acetaminophen 650 mg 01/13/19 04:55 Tylenol PA Q6H PRN Pain MILD(1-3)/Fever >100.5/WOOD Albuterol/Ipratropium 1 ampul 01/22/19 14:00 01/25/19 15:06 Duoneb *Not For Prn Use* IH 1 ampul Q6HRT JOAN Administration Lipase/Protease/Amylase 1 each 01/19/19 13:12 Pancreaze 10,500 Unit FEEDTUBE PRN PRN For Clogged Feeding Tube Bisacodyl 10 mg 01/13/19 04:55 01/16/19 11:30 Dulcolax PA 10 mg QDAY PRN Administration constipation unrelieved by MOM Dextrose 25 ml 01/15/19 08:51 01/15/19 09:00 D50w (25gm) Syringe IV 25 ml Q30MIN PRN Administration Hypoglycemia Protocol Haloperidol 5 mg 01/15/19 22:00 01/24/19 22:53 Haldol PO 5 mg QHS JOAN Administration Heparin Sodium (Porcine) 5,000 unit 01/15/19 22:00 01/25/19 10:10 Heparin SUB-Q Not Given Q12HR [facility] Hydralazine HCl 10 mg 01/18/19 18:48 01/18/19 19:36 Apresoline IV 10 mg Q3HR PRN Administration SBP >/=160 Hydrophilic Ointment 1 applic 01/12/19 23:54 Vaseline Lip Therapy TP Q2HR PRN Dry Lips Lorazepam 1 mg 01/20/19 22:00 01/25/19 10:09 Ativan PO 1 mg BID JOAN Administration Multi-Ingred Cream/Lotion/Oil/Oint 1 applic 01/12/19 23:54 Artificial Tears Ophth Oint OU Q4HR PRN Dry Eye(s) Ondansetron HCl 4 mg 01/13/19 04:55 Zofran IV Q8H PRN Nausea And Vomiting Polyethylene Glycol 17 gm 01/25/19 10:00 01/25/19 10:09 Miralax 3350 PO 17 gm QDAY JOAN Administration Quetiapine Fumarate 400 mg 01/22/19 22:00 01/24/19 22:22 Seroquel PO 400 mg QHS JOAN Administration Simple Syrup 15 ml 01/19/19 13:12 Simple Syrup FEEDTUBE PRN PRN Hypoglycemia Simple Syrup 30 ml 01/19/19 13:12 Simple Syrup FEEDTUBE PRN PRN Hypoglycemia Sodium Bicarbonate 325 mg 01/19/19 13:12 Sodium Bicarbonate FEEDTUBE PRN PRN For Clogged Feeding Tube Sodium Chloride 10 ml 01/13/19 10:00 01/25/19 10:10 Sodium Chloride Flush Syringe 10 Ml IV 10 ml BID JOAN Administration Sodium Chloride 10 ml 01/13/19 04:55 Sodium Chloride Flush Syringe 10 Ml IV PRN PRN LINE FLUSH Nutrition/Malnutrition Assess - Dietary Evaluation Nutrition/Malnutrition Findings: Nutrition Notes Start: 01/13/19 12:10 Freq: Status: Active Protocol: Document 01/23/19 11:45 LM (Rec: 01/23/19 11:52 LM [email or web address]) Nutrition Notes Initial or Follow up Reassessment Current Diagnosis Respiratory Failure Other Pertinent Diagnosis Cerbral palsy, Seizure, fecal impaction, dehydration Current Diet Jevity 1.2 at 50 ml/hr Labs/Tests Poc glu 139 Pertinent Medications Reviewed Height 5 ft 2 in Weight 38 kg [place] Body Weight (kg) 50.00 BMI 15.3 Weight Status Underweight Subjective/Other Information HEALTH ASSESSMENT AND TREATMENT TEACHER recommends pt to be NPO. Jevity 1.2 running at 50 ml/hr . Pt tolerating TF. Percent of energy/protein needs met: 90%/100% Burn Absent Trauma Absent Current % PO Negligible Minimum of two criteria No #1 Nutrition Diagnosis Inadequate oral intake Etiology dysphagia As Evidenced by Signs and Symptoms HEALTH ASSESSMENT AND TREATMENT TEACHER recommends NPO Diagnosis Progress(for reassessment Continues documentation) Is patient on ventilator? No Is Patient Ambulatory and/or Out of Bed No REE-([place]-confined to bed) 1041.972 Kcal/Kg value to use for calculation 42 Approximate Energy Requirements Using 1596 kcal/Kg Calculation Used for Recommendations Kcal/kg Additional Notes PRO: 38-46g/day (1.0-1.2g/kg) Fluid: 1 ml/kcal Nutrition Intervention Change Diet Order: TF diet Nutrition Support: Jevity 1.2 at 50ml/hr Water flush 100ml q4hr Kcal 1,440 Protein (gm) 67 Fluid (mL) 968 Goal #1 TF tolerance Goal #2 Meet at least 80% of energy and protein needs Anticipated Discharge Needs: Unable to determine at this time Follow-Up By: 01/30/19 Additional Comments F/U for TF rate/tolerance
[2019-01-25] MEDS: QUEtiapine 200 MG TAB PO SCH (22:05)
[2019-01-25] MEDS: HALOPERIDOL 5 MG TAB PO SCH (22:05)
[2019-01-26] MEDS: IPRATROPIUM/ALBUTEROL SULFATE 3 ML AMPUL.NEB IH SCH ×4 (02:26→20:35)
[2019-01-26 04:36] LABS: Basophils % (Auto) 0.5 % (0.0-1.8); Eosinophils % (Auto) 0.5 % (0.0-4.3); Hematocrit 27.5 % (30.3-42.9); Hemoglobin 9.3 gm/dl (10.1-14.3); Lymphocytes # (Auto) 0.9 K/mm3 (1.2-5.4); Lymphocytes % (Auto) 15.1 % (13.4-35.0); Mean Corpuscular HGB Conc 34 % (30-34); Mean Corpuscular Volume 90 fl (79-97); Monocytes # (Auto) 0.6 K/mm3 (0.0-0.8); Platelet Count 409 K/mm3 (140-440); Red Blood Count 3.05 M/mm3 (3.65-5.03); Red Cell Distribution Width 13.2 % (13.2-15.2)
[2019-01-26 04:54] LABS: Alanine Aminotransferase 208 units/L (7-56); Albumin 2.8 g/dL (3.9-5); BUN/Creatinine Ratio 52; Blood Urea Nitrogen 26 mg/dL (7-17); Calcium 8.5 mg/dL (8.4-10.2); Hemolysis Index 2; INR 0.98 (0.87-1.13)
--- NOTE | 2019-01-26 08:46 | Anesthesia Consultation ---
Anesthesia Consult and Med Hx Date of service: 01/26/19 - Airway Anesthetic Teeth Evaluation: Poor ROM Head & Neck: Adequate Mental/Hyoid Distance: Adequate Mallampati Class: Class II Intubation Access Assessment: Probably Good - Pre-Operative Health Status ASA Pre-Surgery Classification: ASA3, Emergency Proposed Anesthetic Plan: MAC - Pulmonary Hx Smoking: No Hx Asthma: No Hx Respiratory Symptoms: No SOB: No COPD: No Home Oxygen Therapy: No Hx Pneumonia: No Hx Sleep Apnea: No - Cardiovascular System Hx Hypertension: No Hx Coronary Artery Disease: No Hx Heart Attack/AMI: No Hx Angina: No Hx Percutaneous Transluminal Coronary Angioplasty (PTCA): No Hx Cardia Arrhythmia: No Hx Pacemaker: No Hx Internal Defibrillator: No Hx Valvular Heart Disease: No Hx Heart Murmur: No Hx Peripheral Vascular Disease: No - Central Nervous System Hx Neuromuscular Disorder: No Hx Seizures: Yes (@ 5yrs old) CVA: No Hx Back Pain: No Hx Psychiatric Problems: Yes (Mentally retarded ) - Gastrointestinal Hx Ulcer: No Hx Gastroesophageal Reflux Disease: No - Endocrine Hx Renal Disease: No Hx End Stage Renal Disease: No Hx Cirrhosis: No Hx Liver Disease: No Hx Insulin Dependent Diabetes: No Hx Non-Insulin Dependent Diabetes: No Hx Thyroid Disease: No Hx Hypothyroidism: No Hx Hyperthyroidism: No - Hematic Hx Anemia: No Hx Sickle Cell Disease: No - Other Systems Hx Alcohol Use: No Hx Substance Use: No Hx Cancer: No Hx Obesity: No
--- NOTE | 2019-01-26 08:47 | Anesthesia Day of Surgery ---
Anesthesia Day of Surgery - Day of Surgery Patient Examined: Yes Patient H&P Reviewed: Yes Patient is NPO: Yes Beta Blockers: No
[2019-01-26] MEDS ORDERED: WATER FOR IRRIG STERILE 1,000 ML BOTTLE ONE (08:56)
[2019-01-26] MEDS ORDERED: SODIUM CHLORIDE 0.9% 1000 ML 1,000 ML ONE ×2 (08:57→11:01)
[2019-01-26] MEDS ORDERED: WATER FOR IRRIG STERILE 250 ML BOTTLE IR ONE (08:57)
[2019-01-26] MEDS ORDERED: ceFAZolin/STERILE WATER 2 GM/20 ML SYRINGE IV NR (09:00)
[2019-01-26] MEDS ORDERED: PROPOFOL 200 MG/20 ML VIAL IV ONE ×2 (09:32→09:33)
[2019-01-26] MEDS ORDERED: ceFAZolin/STERILE WATER 2 GM/20 ML SYRINGE IV ONE (10:00)
[2019-01-26] MEDS: HEPARIN 5,000 UNIT/1 ML VIAL SUB-Q SCH ×2 (10:00→22:07)
[2019-01-26] MEDS ORDERED: ceFAZolin/Water 2 GM/20 ML 2 GM/20 ML SYRINGE IV ONE (10:07)
--- NOTE | 2019-01-26 10:13 | XRay Report ---
ABDOMEN 1 VIEW INDICATION / CLINICAL INFORMATION: fecal impaction. COMPARISON: Abdominal radiograph 01/19/2019 FINDINGS: TUBES / LINES: Dobbhoff tube with tip terminating in the region of the second/third portion of the du odenum. BOWEL GAS PATTERN: No significant abnormality. ADDITIONAL FINDINGS: There is a large amount of stool throughout the colon. Multiple prominent, air-f illed loops of bowel. IMPRESSION: 1. Large amount of stool throughout the colon compatible with provided history of fecal impaction. Signer Name: Elyse Rogel MD Signed: 01/26/2019 10:08 AM Workstation Name: [id number]
--- NOTE | 2019-01-26 10:52 | Post Operative Note ---
Pre-op diagnosis: Neurogenic Dysphagia Post-op diagnosis: other (Foreign Body Stomach) Findings: 1. Large pieces of plastic in stomach; unable to remove through GE junction despite rat tooth forceps, snare, or Gunn net 2. Able to traverse pylorus (once plastic pushed to side) 3. Small hiatal hernia 4. LA Grade A esophagitis Procedure: EGD with attempted foreign body removal Anesthesia: MAC Surgeon: CLAU CLARKE Estimated blood loss: none Pathology: none Specimen disposition: other (N/A) Condition: stable Disposition: floor (Recs: 1. Will consult Gen Surg; patient will need surgical removal of foreign bodies in stomach, and possible exploration of small bowel. 2. PEG not placed due to foreign bodies present; can be placed at surgery.)
[2019-01-26] MEDS ORDERED: LIDOCAINE MPF (2%) 20 MG/1 ML VIAL 5 ML ONE (11:00)
--- NOTE | 2019-01-26 11:15 | Operative Report ---
PROCEDURE PERFORMED: Esophagogastroduodenoscopy with aborted gastrostomy tube placement and attempted removal of foreign bodies in the stomach. PREOPERATIVE DIAGNOSIS: Neurogenic dysphagia. POSTOPERATIVE DIAGNOSES: Neurogenic dysphagia and foreign bodies in the stomach. ENDOSCOPIST: Fam Bruce MD INSTRUMENT: Olympus video endoscope. MEDICATIONS: MAC anesthesia by Anesthesia Services. COMPLICATIONS: No apparent complications. ESTIMATED BLOOD LOSS: Minimal. SPECIMENS: None. IMPLANTS: None. ASSISTANTS: None. CONDITION AT COMPLETION: Stable. TECHNIQUE: The patient and her sister were informed of the risks and benefits of the procedure. The sister signed the informed consent due to the patient's chronic neurologic state. After consent was obtained, she was placed in the supine position. The above sedative medications were given. Her vital signs remained stable throughout the procedure. The instrument was advanced from the mouth to the second portion of the duodenum under direct visualization. At that point, the bowel was insufflated and the endoscope was slowly withdrawn. FINDINGS: 1. The pylorus was able to be traversed and the visualized small bowel appeared normal. 2. There was an unexpected finding in the stomach of large pieces of plastic or heavy grade paper products; these foreign bodies did not appear to obstruct the pylorus, but they were too large to be removed with either using the rat tooth forceps, the snare device or the Gunn net despite numerous attempts. A. The large pieces of foreign body lodged in the gastroesophageal junction could not be passed through there. B. Due to the presence of foreign bodies in the stomach, we did not place the planned gastrostomy tube in the stomach as the patient will require exploratory laparoscopy to remove the foreign bodies. 3. A small scar was present on the anterior wall of the body of the stomach consistent with a prior gastrostomy tube. 4. Small hiatal hernia was present. 5. LA grade A esophagitis, likely from chronic reflux. RECOMMENDATIONS: 1. We will consult General Surgery and the patient will need surgical removal of foreign bodies in the stomach; in addition due to her dilated small bowel, she may require surgical exploration to the level of the terminal ileum. 2. Gastrostomy tube was not placed due to foreign bodies present in the stomach; this can be placed at surgical intervention. JOB# [id number] KASIE/NTS
--- NOTE | 2019-01-26 11:41 | Post Anesthesia Evaluation ---
- Post Anesthesia Evaluation Patient Participated: Yes Airway Patent: Yes Stable Respiratory Function: Yes Nausea/Vomiting: No Temp > 96.8F: Yes Pain Manageable: Yes Adequeate Hydration: Yes Anesthesia Complications: No Block Receding Appropriately: Not Applicable Patient on Ventilator: No
[2019-01-26] MEDS: LORazepam 1 MG TAB PO SCH ×2 (13:10→22:07)
[2019-01-26] MEDS: POLYETHYLENE GLYCOL 3350 17 GM POWDER PO SCH (13:11)
--- NOTE | 2019-01-26 13:38 | Progress Note ---
Assessment and Plan Acute Hypoxemic and Hypercapnic Respiratory failure requiring intubation Anemia (Normocytic) Acute Encephalopathy Cerebral palsy Fecal impaction - surgery evaluation for retained foreign body - continue prn BIPAP support for increased work of breathing - continue aspiration precautions (HOB > 40 degrees) - continue to wean supplemental oxygen for O2 sats >90% - continue bronchodilators with pulmonary hygiene per RT - prn CXR's & ABG's at this point - continue agitation management / Pain management per CPOT (prn haldol) - continue VTE prophylaxis - continue stress ulcer prophylaxis - continue accuchecks with glycemic control for SSI (While critically ill target blood glucose of 140-180 mg/dL; avoid hypoglycemia) - Continue mobility protocol for pressure ulcer prevention - Continue to monitor hemodynamics closely - Monitor electrolyte profile closely and replete as indicated - continue chronic home medications per attending and as clinically indicated - continue other care per attending / other consultants CONDITION: FAIR PROGNOSIS: IMPROVED CODE STATUS: FULL CODE Subjective Date of service: 01/26/19 Principal diagnosis: Ac Hypoxemic and Hypercapnic Resp failure; Anemia; Cerebral palsy Interval history: Patient is seen today for: Acute Hypoxemic and Hypercapnic Respiratory failure; Anemia; Acute Encephalopathy; Cerebral palsy; Fecal impaction Seen and examined at bedside; 24hour events reviewed; nursing and respiratory care staff consulted; no adverse overnight events reported to me; resting in bed; s/p EGD; large foreign body noted and not amenable to endoscopic extraction; Objective Vital Signs - 12hr 01/26/19 01/26/19 01/26/19 01:48 01:49 07:22 Temperature 98.3 F 98.2 F Pulse Rate 99 H 104 H Pulse Rate [ Bilateral Throughout] Pulse Rate [ From Monitor] Respiratory 22 20 Rate Respiratory Rate [Bilateral Throughout] Blood Pressure 182/120 O2 Sat by Pulse 100 100 Oximetry 01/26/19 01/26/19 01/26/19 08:34 08:57 09:30 Temperature 97.9 F Pulse Rate 83 Pulse Rate [ 72 Bilateral Throughout] Pulse Rate [ From Monitor] Respiratory 24 Rate Respiratory 18 Rate [Bilateral Throughout] Blood Pressure 149/91 O2 Sat by Pulse 99 100 Oximetry 01/26/19 01/26/19 01/26/19 10:00 10:43 10:58 Temperature 97.9 F Pulse Rate 100 H 104 H Pulse Rate [ Bilateral Throughout] Pulse Rate [ 92 H From Monitor] Respiratory 22 13 20 Rate Respiratory Rate [Bilateral Throughout] Blood Pressure 128/78 108/61 O2 Sat by Pulse 98 97 96 Oximetry 01/26/19 01/26/19 11:13 12:32 Temperature 98.0 F Pulse Rate 94 H Pulse Rate [ Bilateral Throughout] Pulse Rate [ From Monitor] Respiratory 15 20 Rate Respiratory Rate [Bilateral Throughout] Blood Pressure 119/75 135/86 O2 Sat by Pulse 100 Oximetry Constitutional: no acute distress, other (elderly petite AAF, normocephalic with normal respiratory effort at rest) Eyes: non-icteric ENT: oropharynx dry Neck: supple, no lymphadenopathy, no JVD Effort: normal Ascultation: Bilateral: clear, rales, rhonchi, other (referred upper airway sounds) Percussion: Bilateral: not dull Cardiovascular: regular rate and rhythm, other (S1,S2) Gastrointestinal: normoactive bowel sounds, soft, non-tender, non-distended Integumentary: rash Extremities: no cyanosis, no edema, pulses normal, no ischemia or petechiae Neurologic: non-focal exam (grossly), pupils equal and round, other (somnolent) Psychiatric: other (Affect flat) CBC and BMP: 01/27/19 04:49 01/27/19 04:49 ABG, PT/INR, D-dimer: ABG POC ABG pH 7.518 (7.35-7.45) H 01/20/19 16:07 POC ABG pCO2 37.5 (35-45) 01/20/19 16:07 POC ABG pO2 210 (80-105) H 01/20/19 16:07 POC ABG HCO3 30.4 (22-26 mml/L) 01/20/19 16:07 POC ABG Total CO2 32 (23-27mmol/L) 01/20/19 16:07 POC ABG O2 Sat 100 01/20/19 16:07 PT/INR, D-dimer PT 12.9 Sec. (12.2-14.9) 01/26/19 04:12 INR 0.98 (0.87-1.13) 01/26/19 04:12 D-Dimer 135.00 ng/mlDDU (0-234) 01/13/19 00:27 Abnormal lab findings: Abnormal Labs 01/13/19 01/13/1901/13/19 00:27 00:27 00:27 RBC 3.36 L Hgb Hct Lymph % (Auto) 4.2 L [place] % (Auto) Lymph # 0.3 L Seg Neutrophils % 89.1 H APTT POC ABG pH POC ABG pCO2 POC ABG pO2 VBG pH 7.178 L* Sodium Potassium Chloride 109.1 H Carbon Dioxide 20 L BUN 29 H Creatinine Glucose 175 H POC Glucose Lactic Acid Calcium 7.8 L AST ALT CK-MB (CK-2) 7.7 H CK-MB (CK-2) Rel Index 7.2 H Total Protein 6.0 L Albumin 3.3 L Ur Specific [place] 01/13/19 01/13/19 01/13/19 00:27 02:14 02:22 RBC Hgb Hct Lymph % (Auto) [place] % (Auto) Lymph # Seg Neutrophils % APTT POC ABG pH 7.276 L POC ABG pCO2 49.4 H POC ABG pO2 156 H VBG pH Sodium Potassium Chloride Carbon Dioxide BUN Creatinine Glucose POC Glucose Lactic Acid 2.90 H* 0.30 L Calcium AST ALT CK-MB (CK-2) CK-MB (CK-2) Rel Index Total Protein Albumin Ur Specific [place] 01/13/19 01/13/19 01/14/19 02:22 02:34 05:13 RBC 2.96 L Hgb 9.3 L Hct 27.4 L Lymph % (Auto) [place] % (Auto) 11.9 H Lymph # Seg Neutrophils % APTT 39.4 H POC ABG pH POC ABG pCO2 POC ABG pO2 VBG pH Sodium Potassium Chloride Carbon Dioxide BUN Creatinine Glucose POC Glucose Lactic Acid Calcium AST ALT CK-MB (CK-2) CK-MB (CK-2) Rel Index Total Protein Albumin Ur Specific [place] 1.051 H 01/14/19 01/14/19 01/15/19 05:13 06:06 04:31 RBC Hgb Hct Lymph % (Auto) [place] % (Auto) Lymph # Seg Neutrophils % APTT POC ABG pH POC ABG pCO2 33.7 L POC ABG pO2 121 H 114 H VBG pH Sodium Potassium Chloride Carbon Dioxide 21 L BUN 22 H Creatinine 0.6 L Glucose 62 L POC Glucose Lactic Acid Calcium 8.0 L AST ALT CK-MB (CK-2) CK-MB (CK-2) Rel Index Total Protein Albumin Ur Specific [place] 01/15/19 01/15/19 01/16/19 08:51 10:07 02:56 RBC Hgb Hct Lymph % (Auto) [place] % (Auto) Lymph # Seg Neutrophils % APTT POC ABG pH POC ABG pCO2 POC ABG pO2 VBG pH Sodium Potassium Chloride Carbon Dioxide BUN Creatinine Glucose POC Glucose < 40 L 158 H 142 H Lactic Acid Calcium AST ALT CK-MB (CK-2) CK-MB (CK-2) Rel Index Total Protein Albumin Ur Specific [place] 01/16/19 01/17/19 01/17/19 17:54 04:06 04:23 RBC Hgb Hct Lymph % (Auto) [place] % (Auto) Lymph # Seg Neutrophils % APTT POC ABG pH POC ABG pCO2 33.7 L POC ABG pO2 VBG pH Sodium Potassium Chloride Carbon Dioxide BUN Creatinine Glucose POC Glucose 123 H 161 H Lactic Acid Calcium AST ALT CK-MB (CK-2) CK-MB (CK-2) Rel Index Total Protein Albumin Ur Specific [place] 01/17/19 01/18/19 01/19/19 11:20 04:34 11:55 RBC Hgb Hct Lymph % (Auto) [place] % (Auto) Lymph # Seg Neutrophils % APTT POC ABG pH 7.498 H 7.484 H POC ABG pCO2 32.1 L POC ABG pO2 121 H 52 L VBG pH Sodium Potassium Chloride Carbon Dioxide BUN Creatinine Glucose POC Glucose Lactic Acid Calcium AST ALT CK-MB (CK-2) CK-MB (CK-2) Rel Index Total Protein Albumin Ur Specific [place] 01/19/19 01/20/19 01/20/19 23:45 06:30 13:22 RBC Hgb Hct Lymph % (Auto) [place] % (Auto) Lymph # Seg Neutrophils % APTT POC ABG pH POC ABG pCO2 POC ABG pO2 VBG pH Sodium Potassium Chloride Carbon Dioxide BUN Creatinine Glucose POC Glucose 128 H 107 H 149 H Lactic Acid Calcium AST ALT CK-MB (CK-2) CK-MB (CK-2) Rel Index Total Protein Albumin Ur Specific [place] 01/20/19 01/20/19 01/20/19 16:07 18:11 22:53 RBC Hgb Hct Lymph % (Auto) [place] % (Auto) Lymph # Seg Neutrophils % APTT POC ABG pH 7.518 H POC ABG pCO2 POC ABG pO2 210 H VBG pH Sodium Potassium Chloride Carbon Dioxide BUN Creatinine Glucose POC Glucose 139 H 166 H Lactic Acid Calcium AST ALT CK-MB (CK-2) CK-MB (CK-2) Rel Index Total Protein Albumin Ur Specific [place] 01/21/19 01/21/19 01/21/19 04:36 04:47 04:47 RBC 2.89 L Hgb 8.9 L Hct 26.7 L Lymph % (Auto) 13.0 L [place] % (Auto) 9.6 H Lymph # 0.7 L Seg Neutrophils % 77.0 H APTT POC ABG pH POC ABG pCO2 POC ABG pO2 VBG pH Sodium 134 L Potassium Chloride 96.9 L Carbon Dioxide BUN 18 H Creatinine 0.4 L Glucose 138 H POC Glucose 138 H Lactic Acid Calcium 8.0 L AST 171 H ALT 102 H CK-MB (CK-2) CK-MB (CK-2) Rel Index Total Protein 5.6 L Albumin 2.2 L Ur Specific [place] 01/22/19 01/22/19 01/22/19 00:31 05:27 12:16 RBC Hgb Hct Lymph % (Auto) [place] % (Auto) Lymph # Seg Neutrophils % APTT POC ABG pH POC ABG pCO2 POC ABG pO2 VBG pH Sodium Potassium Chloride Carbon Dioxide BUN Creatinine Glucose POC Glucose 113 H 106 H 113 H Lactic Acid Calcium AST ALT CK-MB (CK-2) CK-MB (CK-2) Rel Index Total Protein Albumin Ur Specific [place] 01/23/19 01/23/19 01/23/19 00:35 05:43 11:55 RBC Hgb Hct Lymph % (Auto) [place] % (Auto) Lymph # Seg Neutrophils % APTT POC ABG pH POC ABG pCO2 POC ABG pO2 VBG pH Sodium Potassium Chloride Carbon Dioxide BUN Creatinine Glucose POC Glucose 120 H 139 H 119 H Lactic Acid Calcium AST ALT CK-MB (CK-2) CK-MB (CK-2) Rel Index Total Protein Albumin Ur Specific [place] 01/23/19 01/24/19 01/24/19 18:34 00:40 05:42 RBC Hgb Hct Lymph % (Auto) [place] % (Auto) Lymph # Seg Neutrophils % APTT POC ABG pH POC ABG pCO2 POC ABG pO2 VBG pH Sodium Potassium Chloride Carbon Dioxide BUN Creatinine Glucose POC Glucose 146 H 136 H 119 H Lactic Acid Calcium AST ALT CK-MB (CK-2) CK-MB (CK-2) Rel Index Total Protein Albumin Ur Specific [place] 01/24/19 01/25/19 01/25/19 11:35 00:09 06:30 RBC Hgb Hct Lymph % (Auto) [place] % (Auto) Lymph # Seg Neutrophils % APTT POC ABG pH POC ABG pCO2 POC ABG pO2 VBG pH Sodium Potassium Chloride Carbon Dioxide BUN Creatinine Glucose POC Glucose 117 H 119 H 127 H Lactic Acid Calcium AST ALT CK-MB (CK-2) CK-MB (CK-2) Rel Index Total Protein Albumin Ur Specific [place] 01/25/19 01/26/19 01/26/19 12:10 00:21 04:12 RBC 3.05 L Hgb 9.3 L Hct 27.5 L Lymph % (Auto) [place] % (Auto) 10.0 H Lymph # 0.9 L Seg Neutrophils % 73.9 H APTT POC ABG pH POC ABG pCO2 POC ABG pO2 VBG pH Sodium Potassium Chloride Carbon Dioxide BUN Creatinine Glucose POC Glucose 109 H 125 H Lactic Acid Calcium AST ALT CK-MB (CK-2) CK-MB (CK-2) Rel Index Total Protein Albumin Ur Specific [place] 01/26/19 04:12 RBC Hgb Hct Lymph % (Auto) [place] % (Auto) Lymph # Seg Neutrophils % APTT POC ABG pH POC ABG pCO2 POC ABG pO2 VBG pH Sodium 133 L Potassium 5.4 H D Chloride Carbon Dioxide BUN 26 H Creatinine 0.5 L Glucose POC Glucose Lactic Acid Calcium AST 161 H ALT 208 H CK-MB (CK-2) CK-MB (CK-2) Rel Index Total Protein Albumin 2.8 L Ur Specific [place] Allied health notes reviewed: nursing
--- NOTE | 2019-01-26 15:24 | Progress Note ---
Assessment and Plan Assessment and plan: Dysphagia ;Failed swallow evaluation, GI evaluation noted and appreciated, for PEG placement. S/P EGD:for PEG placement 1. Large pieces of plastic in stomach; unable to remove through GE junction despite rat tooth forceps, snare, or Gunn net 2. Able to traverse pylorus (once plastic pushed to side) 3. Small hiatal hernia 4. LA Grade A esophagitis GI attempted foreign body removal PEG not placed due to foreign bodies present Recs: Gen Surg consult; patient will need surgical removal of foreign bodies in stomach, and possible exploration of small bowel. PEG can be placed at surgery.) Metabolic encephalopathy : Multifactorial, supportive care. Hyperkalemia ; calcium chloride ,monitor electrolytes Respiratory failure requiring intubation Extubated , On Bipap, when necessary Saturating well on nasal cannula oxygen Transaminitis ; Monitor LFTs closely, consult GI if needed Cerebral palsy Patient has known history of cerebral palsy. Fecal impaction Resolved, stool softeners as needed. Severe malnutrition /hypoalbuminemia Nutrition supplements, dietitian following Continue tube feeding DVT prophylaxis, On Heparin SQ. Full code status. Discharge planning; placement Plan of care reviewed with the patient's nurse Follow Surgical evaluation and recommendations History Interval history: Patient seen and examined medical records Patient underwent EGD, GI found to have large plastic pieces, foreign body In the stomach. Tried to remove, did not do PEG Advised surgery evaluation Hospitalist Physical - Constitutional Vitals: Temp Pulse Resp BP Pulse Ox 98.0 F 84 20 135/86 100 01/26/19 12:32 01/26/19 15:10 01/26/19 15:10 01/26/19 12:32 01/26/19 11:13 General appearance: Present: no acute distress, cachectic - EENT Eyes: Present: PERRL, EOM intact - Neck Neck: Present: supple, normal ROM - Respiratory Respiratory effort: normal Respiratory: bilateral: diminished, negative: rales, rhonchi, wheezing - Cardiovascular Rhythm: regular Heart Sounds: Present: S1 & S2 - Extremities Extremities: no ischemia, No edema - Abdominal General gastrointestinal: soft, non-tender, non-distended, normal bowel sounds - Integumentary Integumentary: Present: clear, warm - Psychiatric Psychiatric: other (minimally communicative confused) - Neurologic Neurologic: other (residual weakness) Results - Labs CBC & Chem 7: 01/26/19 04:12 01/26/19 04:12 Labs: Laboratory Last Values WBC 6.1 K/mm3 (4.5-11.0) 01/26/19 04:12 RBC 3.05 M/mm3 (3.65-5.03) L 01/26/19 04:12 Hgb 9.3 gm/dl (10.1-14.3) L 01/26/19 04:12 Hct 27.5 % (30.3-42.9) L 01/26/19 04:12 MCV 90 fl (79-97) 01/26/19 04:12 MCH 30 pg (28-32) 01/26/19 04:12 MCHC 34 % (30-34) 01/26/19 04:12 RDW 13.2 % (13.2-15.2) 01/26/19 04:12 Plt Count 409 K/mm3 (140-440) 01/26/19 04:12 Lymph % (Auto) 15.1 % (13.4-35.0) 01/26/19 04:12 [place] % (Auto) 10.0 % (0.0-7.3) H 01/26/19 04:12 Eos % (Auto) 0.5 % (0.0-4.3) 01/26/19 04:12 Baso % (Auto) 0.5 % (0.0-1.8) 01/26/19 04:12 Lymph # 0.9 K/mm3 (1.2-5.4) L 01/26/19 04:12 [place] # 0.6 K/mm3 (0.0-0.8) 01/26/19 04:12 Eos # 0.0 K/mm3 (0.0-0.4) 01/26/19 04:12 Baso # 0.0 K/mm3 (0.0-0.1) 01/26/19 04:12 Seg Neutrophils % 73.9 % (40.0-70.0) H 01/26/19 04:12 Seg Neutrophils # 4.5 K/mm3 (1.8-7.7) 01/26/19 04:12 PT 12.9 Sec. (12.2-14.9) 01/26/19 04:12 INR 0.98 (0.87-1.13) 01/26/19 04:12 APTT 31.9 Sec. (24.2-36.6) 01/14/19 05:13 D-Dimer 135.00 ng/mlDDU (0-234) 01/13/19 00:27 POC ABG pH 7.518 (7.35-7.45) H 01/20/19 16:07 POC ABG pCO2 37.5 (35-45) 01/20/19 16:07 POC ABG pO2 210 (80-105) H 01/20/19 16:07 POC ABG HCO3 30.4 (22-26 mml/L) 01/20/19 16:07 POC ABG Total CO2 32 (23-27mmol/L) 01/20/19 16:07 POC ABG O2 Sat 100 01/20/19 16:07 POC ABG Base Excess 8 ((-2) - (+3)mmol/L) 01/20/19 16:07 VBG pH 7.178 (7.320-7.420) L* 01/13/19 00:27 FiO2 50 % 01/20/19 16:07 Sodium 133 mmol/L (137-145) L 01/26/19 04:12 Potassium 5.4 mmol/L (3.6-5.0) H D 01/26/19 04:12 Chloride 98.6 mmol/L (98-107) 01/26/19 04:12 Carbon Dioxide 25 mmol/L (22-30) 01/26/19 04:12 Anion Gap 15 mmol/L 01/26/19 04:12 BUN 26 mg/dL (7-17) H 01/26/19 04:12 Creatinine 0.5 mg/dL (0.7-1.2) L 01/26/19 04:12 Estimated GFR > 60 ml/min 01/26/19 04:12 BUN/Creatinine Ratio 52 % 01/26/19 04:12 Glucose 96 mg/dL (65-100) 01/26/19 04:12 POC Glucose 94 (70-105) 01/26/19 08:17 Lactic Acid 0.30 mmol/L (0.7-2.0) L 01/13/19 02:22 Calcium 8.5 mg/dL (8.4-10.2) 01/26/19 04:12 Magnesium 2.10 mg/dL (1.7-2.3) 01/21/19 04:47 Total Bilirubin < 0.20 mg/dL (0.1-1.2) 01/26/19 04:12 AST 161 units/L (5-40) H 01/26/19 04:12 ALT 208 units/L (7-56) H 01/26/19 04:12 Alkaline Phosphatase 111 units/L (35-129) 01/26/19 04:12 Ammonia 25.0 umol/L (25-60) 01/13/19 00:27 Total Creatine Kinase 106 units/L (30-135) 01/13/19 00:27 CK-MB (CK-2) 7.7 ng/mL (0.0-4.0) H 01/13/19 00:27 CK-MB (CK-2) Rel Index 7.2 (0-4) H 01/13/19 00:27 Troponin T < 0.010 ng/mL (0.00-0.029) 01/13/19 00:27 NT-Pro-B Natriuret Pep 52.36 pg/mL (0-900) 01/13/19 00:27 Total Protein 6.6 g/dL (6.3-8.2) 01/26/19 04:12 Albumin 2.8 g/dL (3.9-5) L 01/26/19 04:12 Albumin/Globulin Ratio 0.7 % 01/26/19 04:12 Urine Color Yellow (Yellow) 01/13/19 02:34 Urine Turbidity Slightly-cloudy (Clear) 01/13/19 02:34 Urine pH 5.0 (5.0-7.0) 01/13/19 02:34 Ur Specific [place] 1.051 (1.003-1.030) H 01/13/19 02:34 Urine Protein <15 mg/dl mg/dL (Negative) 01/13/19 02:34 Urine Glucose (UA) 50 mg/dL (Negative) 01/13/19 02:34 Urine Ketones Neg mg/dL (Negative) 01/13/19 02:34 Urine Blood Neg (Negative) 01/13/19 02:34 Urine Nitrite Neg (Negative) 01/13/19 02:34 Urine Bilirubin Neg (Negative) 01/13/19 02:34 Urine Urobilinogen < 2.0 mg/dL (<2.0) 01/13/19 02:34 Ur Leukocyte Esterase Neg (Negative) 01/13/19 02:34 Urine WBC (Auto) < 1.0 /HPF (0.0-6.0) 01/13/19 02:34 Urine RBC (Auto) < 1.0 /HPF (0.0-6.0) 01/13/19 02:34 U Epithel Cells (Auto) < 1.0 /HPF (0-13.0) 01/13/19 02:34 Urine Bacteria (Auto) 1+ /HPF (Negative) 01/13/19 02:34 Urine Mucus 1+ /HPF 01/13/19 02:34 Active Medications - Current Medications Current Medications: Generic Name Dose Route Start Last Admin Trade Name Freq PRN Reason Stop Dose Admin Acetaminophen 650 mg 01/13/19 04:55 Tylenol ID Q6H PRN Pain MILD(1-3)/Fever >100.5/WOOD Albuterol/Ipratropium 1 ampul 01/22/19 14:00 01/26/19 14:53 Duoneb *Not For Prn Use* IH 1 ampul Q6HRT JOAN Administration Lipase/Protease/Amylase 1 each 01/19/19 13:12 Pancreaze 10,500 Unit FEEDTUBE PRN PRN For Clogged Feeding Tube Bisacodyl 10 mg 01/13/19 04:55 01/16/19 11:30 Dulcolax ID 10 mg QDAY PRN Administration constipation unrelieved by MOM Dextrose 25 ml 01/15/19 08:51 01/15/19 09:00 D50w (25gm) Syringe IV 25 ml Q30MIN PRN Administration Hypoglycemia Protocol Haloperidol 5 mg 01/15/19 22:00 01/25/19 22:05 Haldol PO 5 mg QHS JOAN Administration Heparin Sodium (Porcine) 5,000 unit 01/15/19 22:00 01/26/19 10:00 Heparin SUB-Q Not Given Q12HR [facility] Hydralazine HCl 10 mg 01/18/19 18:48 01/18/19 19:36 Apresoline IV 10 mg Q3HR PRN Administration SBP >/=160 Hydrophilic Ointment 1 applic 01/12/19 23:54 Vaseline Lip Therapy TP Q2HR PRN Dry Lips Sodium Chloride 1,000 mls @ 50 mls/hr 01/26/19 10:00 Nacl 0.9% 1000 Ml IV DIRECT JOAN Lorazepam 1 mg 01/20/19 22:00 01/26/19 13:10 Ativan PO Not Given BID JOAN Multi-Ingred Cream/Lotion/Oil/Oint 1 applic 01/12/19 23:54 Artificial Tears Ophth Oint OU Q4HR PRN Dry Eye(s) Ondansetron HCl 4 mg 01/13/19 04:55 Zofran IV Q8H PRN Nausea And Vomiting Polyethylene Glycol 17 gm 01/25/19 10:00 01/26/19 13:11 Miralax 3350 PO Not Given QDAY JOAN Quetiapine Fumarate 400 mg 01/22/19 22:00 01/25/19 22:05 Seroquel PO 400 mg QHS JOAN Administration Simple Syrup 15 ml 01/19/19 13:12 Simple Syrup FEEDTUBE PRN PRN Hypoglycemia Simple Syrup 30 ml 01/19/19 13:12 Simple Syrup FEEDTUBE PRN PRN Hypoglycemia Sodium Bicarbonate 325 mg 01/19/19 13:12 Sodium Bicarbonate FEEDTUBE PRN PRN For Clogged Feeding Tube Sodium Chloride 10 ml 01/13/19 10:00 01/25/19 22:06 Sodium Chloride Flush Syringe 10 Ml IV 10 ml BID JOAN Administration Sodium Chloride 10 ml 01/13/19 04:55 Sodium Chloride Flush Syringe 10 Ml IV PRN PRN LINE FLUSH Nutrition/Malnutrition Assess - Dietary Evaluation Nutrition/Malnutrition Findings: Nutrition Notes Start: 01/13/19 12:10 Freq: Status: Active Protocol: Document 01/23/19 11:45 LM (Rec: 01/23/19 11:52 LM [email or web address]) Nutrition Notes Initial or Follow up Reassessment Current Diagnosis Respiratory Failure Other Pertinent Diagnosis Cerbral palsy, Seizure, fecal impaction, dehydration Current Diet Jevity 1.2 at 50 ml/hr Labs/Tests Poc glu 139 Pertinent Medications Reviewed Height 5 ft 2 in Weight 38 kg [place] Body Weight (kg) 50.00 BMI 15.3 Weight Status Underweight Subjective/Other Information G[employer]ER recommends pt to be NPO. Jevity 1.2 running at 50 ml/hr . Pt tolerating TF. Percent of energy/protein needs met: 90%/100% Burn Absent Trauma Absent Current % PO Negligible Minimum of two criteria No #1 Nutrition Diagnosis Inadequate oral intake Etiology dysphagia As Evidenced by Signs and Symptoms GOLD BUYER recommends NPO Diagnosis Progress(for reassessment Continues documentation) Is patient on ventilator? No Is Patient Ambulatory and/or Out of Bed No REE-([facility]-confined to bed) 1041.972 Kcal/Kg value to use for calculation 42 Approximate Energy Requirements Using 1596 kcal/Kg Calculation Used for Recommendations Kcal/kg Additional Notes PRO: 38-46g/day (1.0-1.2g/kg) Fluid: 1 ml/kcal Nutrition Intervention Change Diet Order: TF diet Nutrition Support: Jevity 1.2 at 50ml/hr Water flush 100ml q4hr Kcal 1,440 Protein (gm) 67 Fluid (mL) 968 Goal #1 TF tolerance Goal #2 Meet at least 80% of energy and protein needs Anticipated Discharge Needs: Unable to determine at this time Follow-Up By: 01/30/19 Additional Comments F/U for TF rate/tolerance
[2019-01-26] MEDS: ACETAMINOPHEN 650 MG RECT SUPP PR PRN (15:26)
[2019-01-26] MEDS ORDERED: CALCIUM CHLORIDE 500 MG in SODIUM CHLORIDE 0.9% 100 ML IV ONE (16:00)
--- NOTE | 2019-01-26 16:04 | Consultation ---
History of Present Illness Consult date: 01/26/19 Reason for consult: other (Foreign bodies in stomach) Requesting physician: CLAU CLARKE Chief complaint: abdominal bloating - History of present illness History of present illness: 68-year-old female with known history of cerebral palsy and developmental delays was brought into the emergency room in respiratory distress. She is also known to have history of chronic constipation. She has been noticed to have increasing swelling of abdomen over the past few days at the time of admission. Upon arrival in the emergency room she was found to be constipated. She had a large bowel movement upon arrival. However because of her respiratory distress she was subsequently intubated. Her work-up however including CT of the abdomen shows fecal impaction. There has been no history of nausea vomiting. No fever or chills. After multiple bowel treatments, the fecal impaction was felt to be resolved. In the interim, a swallow study had been done. She failed that study and was subsequently set up for PEG tube placement by GI. Today, during the EGD, Dr. Clarke found foreign bodies in the stomach. He felt they may be contributing to her bowel issues. He was unable to remove them due to the large size. He therefore requested general surgery consult on this case. Patient has a well-established history of Pica-like behavior. Pt had a PEG tube 15 years ago that she pulled out. She is able to eat without any difficulties. Pt unable to give any history. History obtained from chart, staff, and sister. Past History Past Medical History: other (Cerebral palsy, history of chronic constipation, developmental delay) Past Surgical History: Other (History of PEG tube placement in the past) Social history: no significant social history Family history: no significant family history Medications and Allergies Allergies Allergy/AdvReac Type Severity Reaction Status Date / Time No Known Allergies Allergy Unverified 12/07/13 17:18 Home Medications Medication Instructions Recorded Confirmed Last Taken Type LORazepam 1 mg PO TID 01/13/19 01/13/19 Unknown History Quetiapine Fumarate [SEROquel] 600 mg PO DAILY 01/13/19 01/13/19 Unknown History traZODone [Desyrel] 100 mg PO DAILY 01/13/19 01/13/19 Unknown History Haldol 5 mg PO PCHS 01/14/19 01/14/19 Unknown History Active Meds: Active Medications Acetaminophen (Tylenol) 650 mg DE Q6H PRN PRN Reason: Pain MILD(1-3)/Fever >100.5/WOOD Albuterol/Ipratropium (Duoneb *Not For Prn Use*) 1 ampul IH Q6HRT [facility] Last Admin: 01/26/19 14:53 Dose: 1 ampul Documented by: Lipase/Protease/Amylase ([place] 10,500 Unit) 1 each FEEDTUBE PRN PRN PRN Reason: For Clogged Feeding Tube Bisacodyl (Dulcolax) 10 mg DE QDAY PRN PRN Reason: constipation unrelieved by MOM Last Admin: 01/16/19 11:30 Dose: 10 mg Documented by: Dextrose (D50w (25gm) Syringe) 25 ml IV Q30MIN PRN; Protocol PRN Reason: Hypoglycemia Last Admin: 01/15/19 09:00 Dose: 25 ml Documented by: Haloperidol (Haldol) 5 mg PO QHS [facility] Last Admin: 01/25/19 22:05 Dose: 5 mg Documented by: Heparin Sodium (Porcine) (Heparin) 5,000 unit SUB-Q Q12HR [facility] Last Admin: 01/26/19 10:00 Dose: Not Given Documented by: Hydralazine HCl (Apresoline) 10 mg IV Q3HR PRN PRN Reason: SBP >/=160 Last Admin: 01/18/19 19:36 Dose: 10 mg Documented by: Hydrophilic Ointment (Vaseline Lip Therapy) 1 applic TP Q2HR PRN PRN Reason: Dry Lips Sodium Chloride (Nacl 0.9% 1000 Ml) 1,000 mls @ 50 mls/hr IV DIRECT [facility] Calcium Chloride 500 mg/ (Sodium Chloride) 105 mls @ 660 mls/hr IV ONCE ONE Stop: 01/26/19 16:09 Ketorolac Tromethamine (Toradol) 15 mg IV Q6H PRN PRN Reason: Pain, Mild (1-3) Stop: 01/31/19 15:31 Lorazepam (Ativan) 1 mg PO BID [facility] Last Admin: 01/26/19 13:10 Dose: Not Given Documented by: Multi-Ingred Cream/Lotion/Oil/Oint (Artificial Tears Ophth Oint) 1 applic OU Q4HR PRN PRN Reason: Dry Eye(s) Ondansetron HCl (Zofran) 4 mg IV Q8H PRN PRN Reason: Nausea And Vomiting Polyethylene Glycol (Miralax 3350) 17 gm PO QDAY [facility] Last Admin: 01/26/19 13:11 Dose: Not Given Documented by: Quetiapine Fumarate (Seroquel) 400 mg PO QHS [facility] Last Admin: 01/25/19 22:05 Dose: 400 mg Documented by: Simple Syrup (Simple Syrup) 15 ml FEEDTUBE PRN PRN PRN Reason: Hypoglycemia Simple Syrup (Simple Syrup) 30 ml FEEDTUBE PRN PRN PRN Reason: Hypoglycemia Sodium Bicarbonate (Sodium Bicarbonate) 325 mg FEEDTUBE PRN PRN PRN Reason: For Clogged Feeding Tube Sodium Chloride (Sodium Chloride Flush Syringe 10 Ml) 10 ml IV BID [facility] Last Admin: 01/25/19 22:06 Dose: 10 ml Documented by: Sodium Chloride (Sodium Chloride Flush Syringe 10 Ml) 10 ml IV PRN PRN PRN Reason: LINE FLUSH Review of Systems ROS unobtainable: due to mental status Exam Vital Signs Pulse Resp BP 144 H 19 134/92 01/12/19 23:38 01/12/19 23:38 01/12/19 23:38 - General physical appearance Positive: no distress, no pain, other (very thin. grinding teeth. Unable to communicate effectively. ) - Respiratory Positive: normal expansion, normal respiratory effort - Cardiovascular Rhythm: regular - Abdomen Abdomen: Present: soft, distended, surgical scars (old PEG tube site scar. ). Absent: tender, masses, guarding, rigid - Integumentary no rash, no growths, no abnormal pigmentation Results - Labs 01/26/19 04:12 01/26/19 04:12 Abnormal lab results 01/26/19 01/26/19 01/26/19 Range/Units 00:21 04:12 04:12 RBC 3.05 L (3.65-5.03) M/mm3 Hgb 9.3 L (10.1-14.3) gm/dl Hct 27.5 L (30.3-42.9) % [place] % (Auto) 10.0 H (0.0-7.3) % Lymph # 0.9 L (1.2-5.4) K/mm3 Seg Neutrophils % 73.9 H (40.0-70.0) % Sodium 133 L (137-145) mmol/L Potassium 5.4 H D (3.6-5.0) mmol/L BUN 26 H (7-17) mg/dL Creatinine 0.5 L (0.7-1.2) mg/dL POC Glucose 125 H (70-105) AST 161 H (5-40) units/L ALT 208 H (7-56) units/L Albumin 2.8 L (3.9-5) g/dL Diabetes panel 01/26/19 Range/Units 04:12 Sodium 133 L (137-145) mmol/L Potassium 5.4 H D (3.6-5.0) mmol/L Chloride 98.6 (98-107) mmol/L Carbon Dioxide 25 (22-30) mmol/L BUN 26 H (7-17) mg/dL Creatinine 0.5 L (0.7-1.2) mg/dL Glucose 96 (65-100) mg/dL Calcium 8.5 (8.4-10.2) mg/dL AST 161 H (5-40) units/L ALT 208 H (7-56) units/L Alkaline Phosphatase 111 (35-129) units/L Total Protein 6.6 (6.3-8.2) g/dL Albumin 2.8 L (3.9-5) g/dL Calcium panel 01/26/19 Range/Units 04:12 Calcium 8.5 (8.4-10.2) mg/dL Albumin 2.8 L (3.9-5) g/dL Pituitary panel 01/26/19 Range/Units 04:12 Sodium 133 L (137-145) mmol/L Potassium 5.4 H D (3.6-5.0) mmol/L Chloride 98.6 (98-107) mmol/L Carbon Dioxide 25 (22-30) mmol/L BUN 26 H (7-17) mg/dL Creatinine 0.5 L (0.7-1.2) mg/dL Glucose 96 (65-100) mg/dL Calcium 8.5 (8.4-10.2) mg/dL Adrenal panel 01/26/19 Range/Units 04:12 Sodium 133 L (137-145) mmol/L Potassium 5.4 H D (3.6-5.0) mmol/L Chloride 98.6 (98-107) mmol/L Carbon Dioxide 25 (22-30) mmol/L BUN 26 H (7-17) mg/dL Creatinine 0.5 L (0.7-1.2) mg/dL Glucose 96 (65-100) mg/dL Calcium 8.5 (8.4-10.2) mg/dL Total Bilirubin < 0.20 (0.1-1.2) mg/dL AST 161 H (5-40) units/L ALT 208 H (7-56) units/L Alkaline Phosphatase 111 (35-129) units/L Total Protein 6.6 (6.3-8.2) g/dL Albumin 2.8 L (3.9-5) g/dL - Imaging Abdominal x-ray: report reviewed, image reviewed CT scan - abdomen: report reviewed, image reviewed CT scan - pelvis: report reviewed, image reviewed Assessment and Plan - Patient Problems (1) Foreign body alimentary tract Current Visit: Yes Status: Acute Qualifiers: Encounter type: initial encounter Qualified Code(s): T18.9XXA - Foreign body of alimentary tract, part unspecified, initial encounter Plan to address problem: Pt stable. Patient need of surgical exploration to remove foreign bodies. As patient is stable and abdomen is benign, we'll get repeat CT scan to assess the status of the entire intestinal tract. GI expressed concern that there might be something at the terminal ileum. After CT is complete, I will sit down with a sister to decide upon a surgical plan. We'll most likely proceed to surgery this weekend. We will most likely need to place a feeding tube as well. Discussed with Dr. Sheikh. TPN would be a good idea at this time. time=45min
[2019-01-26] MEDS: KETOROLAC 30 MG/1 ML INJ IV PRN (16:07)
[2019-01-26] MEDS: HALOPERIDOL 5 MG TAB PO SCH (22:07)
[2019-01-26] MEDS: QUEtiapine 200 MG TAB PO SCH (22:07)
--- NOTE | 2019-01-26 23:32 | Cat Scan Report ---
CT ABDOMEN AND PELVIS WITHOUT CONTRAST INDICATION / CLINICAL INFORMATION: Severe abdominal pain and distention worsening TECHNIQUE: Axial CT images were obtained through the abdomen and pelvis without IV contrast. All CT scans at [facility] location are performed using CT dose reduction for ALARA by means of automated exposure control. COMPARISON: 01/13/2019 FINDINGS: Abdomen and pelvis: When compared to the prior exam the overall burden of stool throughout the colon has significantly de creased in the interim however there is still persistent severe adynamic ileus of the small and large bowel. I see no evidence of foreign body within the large bowel aside from the prominent rectal tube . No free air is appreciated however the exam is somewhat limited from respiratory motion artifact. T here is patchy bibasilar airspace densities within both lower lungs suspicious for aspiration pneumon ia. Tiny bilateral pleural effusions. Review of the intra-abdominal organs are quite limited secondary to diffuse anasarca and the lack of IV contrast. IMPRESSION: 1. Overall decrease in the stool burden throughout the colon when compared to 01/13/2019 however the degree of severe adynamic ileus of the small large bowel has not improved in the interim. 2. Persistent severe anasarca. 3. Suspect bilateral lower lobe aspiration pneumonia. Signer Name: Pio Castro MD Signed: 01/26/2019 11:28 PM Workstation Name: [id number]
[2019-01-27] MEDS: SODIUM CHLORIDE 0.9% 1000 ML 1,000 ML IV SCH ×2 (00:36→16:43)
[2019-01-27] MEDS: IPRATROPIUM/ALBUTEROL SULFATE 3 ML AMPUL.NEB IH SCH ×3 (02:37→14:00)
[2019-01-27 05:08] LABS: Basophils % (Auto) 0.4 % (0.0-1.8); Eosinophils % (Auto) 0.1 % (0.0-4.3); Hemoglobin 9.5 gm/dl (10.1-14.3); Lymphocytes # (Auto) 0.8 K/mm3 (1.2-5.4); Lymphocytes % (Auto) 7.4 % (13.4-35.0); Mean Corpuscular HGB Conc 34 % (30-34); Mean Corpuscular Volume 90 fl (79-97); Monocytes # (Auto) 0.4 K/mm3 (0.0-0.8); Monocytes % (Auto) 4.4 % (0.0-7.3); Platelet Count 477 K/mm3 (140-440); Red Blood Count 3.11 M/mm3 (3.65-5.03); Red Cell Distribution Width 13.3 % (13.2-15.2)
[2019-01-27 05:50] LABS: Alanine Aminotransferase 122 units/L (7-56); Albumin 2.7 g/dL (3.9-5); BUN/Creatinine Ratio 56; Blood Urea Nitrogen 28 mg/dL (7-17); Calcium 8.6 mg/dL (8.4-10.2); Hemolysis Index 1
[2019-01-27] MEDS: LORazepam 1 MG TAB PO SCH ×2 (10:39→21:00)
[2019-01-27] MEDS: HEPARIN 5,000 UNIT/1 ML VIAL SUB-Q SCH ×2 (10:39→21:00)
[2019-01-27] MEDS: POLYETHYLENE GLYCOL 3350 17 GM POWDER PO SCH (10:39)
[2019-01-27] MEDS: KETOROLAC 30 MG/1 ML INJ IV PRN (10:54)
--- NOTE | 2019-01-27 11:38 | Progress Note ---
Assessment and Plan - Patient Problems (1) Foreign body alimentary tract Current Visit: Yes Status: Acute Qualifiers: Encounter type: initial encounter Qualified Code(s): T18.9XXA - Foreign body of alimentary tract, part unspecified, initial encounter Plan to address problem: Pt stable. Patient need of surgical exploration to remove foreign bodies. Procedure, risks, benefits discussed. Consent obtained from sister. To OR today for ex lap and feeding tube placement. time=15min Subjective Date of service: 01/27/19 Patient Reports: Positive: no new complaints Objective Vital Signs - 12hr 01/27/19 01/27/19 01/27/19 02:31 07:40 08:40 Temperature 98.6 F 98.5 F Pulse Rate 87 90 Pulse Rate [ 92 H Anterior Throughout] Pulse Rate [ 92 H Bilateral Throughout] Respiratory 18 20 Rate Respiratory 16 Rate [Anterior Throughout] Respiratory 16 Rate [Bilateral Throughout] Blood Pressure 122/83 133/78 O2 Sat by Pulse 98 98 Oximetry 01/27/19 08:50 Temperature Pulse Rate Pulse Rate [ Anterior Throughout] Pulse Rate [ Bilateral Throughout] Respiratory Rate Respiratory Rate [Anterior Throughout] Respiratory Rate [Bilateral Throughout] Blood Pressure O2 Sat by Pulse 95 Oximetry - General physical appearance no distress, no pain, other (still grinding teeth) - Respiratory normal expansion, normal respiratory effort - Abdomen soft, not tender, bowel sounds hypoactive, distended, not guarding, not rigid - Integumentary no rash, no growths, no abnormal pigmentation - Labs 01/27/19 04:49 01/27/19 04:49 Diabetes panel 01/27/19 Range/Units 04:49 Sodium 131 L (137-145) mmol/L Potassium 4.9 (3.6-5.0) mmol/L Chloride 101.6 (98-107) mmol/L Carbon Dioxide 20 L (22-30) mmol/L BUN 28 H (7-17) mg/dL Creatinine 0.5 L (0.7-1.2) mg/dL Glucose 87 (65-100) mg/dL Calcium 8.6 (8.4-10.2) mg/dL AST 82 H (5-40) units/L ALT 122 H (7-56) units/L Alkaline Phosphatase 110 (35-129) units/L Total Protein 6.2 L (6.3-8.2) g/dL Albumin 2.7 L (3.9-5) g/dL Calcium panel 01/27/19 Range/Units 04:49 Calcium 8.6 (8.4-10.2) mg/dL Phosphorus 4.60 H (2.5-4.5) mg/dL Albumin 2.7 L (3.9-5) g/dL Pituitary panel 01/27/19 Range/Units 04:49 Sodium 131 L (137-145) mmol/L Potassium 4.9 (3.6-5.0) mmol/L Chloride 101.6 (98-107) mmol/L Carbon Dioxide 20 L (22-30) mmol/L BUN 28 H (7-17) mg/dL Creatinine 0.5 L (0.7-1.2) mg/dL Glucose 87 (65-100) mg/dL Calcium 8.6 (8.4-10.2) mg/dL Adrenal panel 01/27/19 Range/Units 04:49 Sodium 131 L (137-145) mmol/L Potassium 4.9 (3.6-5.0) mmol/L Chloride 101.6 (98-107) mmol/L Carbon Dioxide 20 L (22-30) mmol/L BUN 28 H (7-17) mg/dL Creatinine 0.5 L (0.7-1.2) mg/dL Glucose 87 (65-100) mg/dL Calcium 8.6 (8.4-10.2) mg/dL Total Bilirubin 0.20 (0.1-1.2) mg/dL AST 82 H (5-40) units/L ALT 122 H (7-56) units/L Alkaline Phosphatase 110 (35-129) units/L Total Protein 6.2 L (6.3-8.2) g/dL Albumin 2.7 L (3.9-5) g/dL
[2019-01-27] MEDS ORDERED: ceFAZolin/Water 2 GM/20 ML 2 GM/20 ML SYRINGE IV NR (13:00)
--- NOTE | 2019-01-27 13:29 | Progress Note ---
Assessment and Plan Acute Hypoxemic and Hypercapnic Respiratory failure requiring intubation Anemia (Normocytic) Acute Encephalopathy Cerebral palsy Fecal impaction - to OR todayu; will follow evelin-operatively - continue prn BIPAP support for increased work of breathing - continue aspiration precautions (HOB > 40 degrees) - continue prn supplemental oxygen for target O2 sats >90% - continue bronchodilators with pulmonary hygiene per RT - prn CXR's & ABG's at this point - continue agitation management / Pain management per CPOT (prn haldol) - continue VTE prophylaxis - continue stress ulcer prophylaxis - continue accuchecks with glycemic control for SSI (While critically ill target blood glucose of 140-180 mg/dL; avoid hypoglycemia) - Continue mobility protocol for pressure ulcer prevention - Continue to monitor hemodynamics closely - Monitor electrolyte profile closely and replete as indicated - continue chronic home medications per attending and as clinically indicated - continue other care per attending / other consultants CONDITION: FAIR PROGNOSIS: IMPROVED CODE STATUS: FULL CODE Subjective Date of service: 01/27/19 Principal diagnosis: Ac Hypoxemic and Hypercapnic Resp failure; Anemia; Cerebral palsy Interval history: Patient is seen today for: Acute Hypoxemic and Hypercapnic Respiratory failure; Anemia; Acute Encephalopathy; Cerebral palsy; Fecal impaction Seen and examined at bedside; 24hour events reviewed; nursing and respiratory care staff consulted; no adverse overnight events reported to me; resting in bed; sister in room; tentatively to OR today re: gastric lesion; no emesis or overt aspiration reported Objective Vital Signs - 12hr 01/27/19 01/27/19 01/27/19 02:31 07:40 08:40 Temperature 98.6 F 98.5 F Pulse Rate 87 90 Pulse Rate [ 92 H Anterior Throughout] Pulse Rate [ 92 H Bilateral Throughout] Pulse Rate [ From Monitor] Respiratory 18 20 Rate Respiratory 16 Rate [Anterior Throughout] Respiratory 16 Rate [Bilateral Throughout] Blood Pressure 122/83 133/78 O2 Sat by Pulse 98 98 Oximetry 01/27/19 01/27/19 01/27/19 08:50 10:00 13:12 Temperature 99.0 F Pulse Rate 51 L Pulse Rate [ Anterior Throughout] Pulse Rate [ Bilateral Throughout] Pulse Rate [ 90 From Monitor] Respiratory 20 18 Rate Respiratory Rate [Anterior Throughout] Respiratory Rate [Bilateral Throughout] Blood Pressure 102/59 O2 Sat by Pulse 95 98 83 L Oximetry Constitutional: appears uncomfortable, other (elderly petite AAF, normocephalic with normal respiratory effort at rest) Eyes: non-icteric ENT: oropharynx moist Neck: supple, no lymphadenopathy, no JVD Effort: normal Ascultation: Bilateral: rhonchi Percussion: Bilateral: not dull Cardiovascular: regular rate and rhythm, other (S1,S2) Gastrointestinal: normoactive bowel sounds, soft, non-tender, non-distended Integumentary: rash Extremities: no cyanosis, no edema, pulses normal, no ischemia or petechiae Neurologic: non-focal exam (grossly), pupils equal and round, other (+ cognitive defect re: cerebral Palsy) Psychiatric: anxious CBC and BMP: 01/28/19 04:13 01/28/19 04:13 ABG, PT/INR, D-dimer: ABG POC ABG pH 7.518 (7.35-7.45) H 01/20/19 16:07 POC ABG pCO2 37.5 (35-45) 01/20/19 16:07 POC ABG pO2 210 (80-105) H 01/20/19 16:07 POC ABG HCO3 30.4 (22-26 mml/L) 01/20/19 16:07 POC ABG Total CO2 32 (23-27mmol/L) 01/20/19 16:07 POC ABG O2 Sat 100 01/20/19 16:07 PT/INR, D-dimer PT 12.9 Sec. (12.2-14.9) 01/26/19 04:12 INR 0.98 (0.87-1.13) 01/26/19 04:12 D-Dimer 135.00 ng/mlDDU (0-234) 01/13/19 00:27 Abnormal lab findings: Abnormal Labs 01/13/19 01/13/19 01/13/19 00:27 00:27 00:27 RBC 3.36 L Hgb Hct Plt Count Lymph % (Auto) 4.2 L [place] % (Auto) Lymph # 0.3 L Seg Neutrophils % 89.1 H Seg Neutrophils # APTT POC ABG pH POC ABG pCO2 POC ABG pO2 VBG pH 7.178 L* Sodium Potassium Chloride 109.1 H Carbon Dioxide 20 L BUN 29 H Creatinine Glucose 175 H POC Glucose Lactic Acid Calcium 7.8 L Phosphorus AST ALT CK-MB (CK-2) 7.7 H CK-MB (CK-2) Rel Index 7.2 H Total Protein 6.0 L Albumin 3.3 L Ur Specific [place] 01/13/19 01/13/19 01/13/19 00:27 02:14 02:22 RBC Hgb Hct Plt Count Lymph % (Auto) [place] % (Auto) Lymph # Seg Neutrophils % Seg Neutrophils # APTT POC ABG pH 7.276 L POC ABG pCO2 49.4 H POC ABG pO2 156 H VBG pH Sodium Potassium Chloride Carbon Dioxide BUN Creatinine Glucose POC Glucose Lactic Acid 2.90 H* 0.30 L Calcium Phosphorus AST ALT CK-MB (CK-2) CK-MB (CK-2) Rel Index Total Protein Albumin Ur Specific [place] 01/13/19 01/13/19 01/14/19 02:22 02:34 05:13 RBC 2.96 L Hgb 9.3 L Hct 27.4 L Plt Count Lymph % (Auto) [place] % (Auto) 11.9 H Lymph # Seg Neutrophils % Seg Neutrophils # APTT 39.4 H POC ABG pH POC ABG pCO2 POC ABG pO2 VBG pH Sodium Potassium Chloride Carbon Dioxide BUN Creatinine Glucose POC Glucose Lactic Acid Calcium Phosphorus AST ALT CK-MB (CK-2) CK-MB (CK-2) Rel Index Total Protein Albumin Ur Specific [place] 1.051 H 01/14/19 01/14/19 01/15/19 05:13 06:06 04:31 RBC Hgb Hct Plt Count Lymph % (Auto) [place] % (Auto) Lymph # Seg Neutrophils % Seg Neutrophils # APTT POC ABG pH POC ABG pCO2 33.7 L POC ABG pO2 121 H 114 H VBG pH Sodium Potassium Chloride Carbon Dioxide 21 L BUN 22 H Creatinine 0.6 L Glucose 62 L POC Glucose Lactic Acid Calcium 8.0 L Phosphorus AST ALT CK-MB (CK-2) CK-MB (CK-2) Rel Index Total Protein Albumin Ur Specific [place] 01/15/19 01/15/19 01/16/19 08:51 10:07 02:56 RBC Hgb Hct Plt Count Lymph % (Auto) [place] % (Auto) Lymph # Seg Neutrophils % Seg Neutrophils # APTT POC ABG pH POC ABG pCO2 POC ABG pO2 VBG pH Sodium Potassium Chloride Carbon Dioxide BUN Creatinine Glucose POC Glucose < 40 L 158 H 142 H Lactic Acid Calcium Phosphorus AST ALT CK-MB (CK-2) CK-MB (CK-2) Rel Index Total Protein Albumin Ur Specific [place] 01/16/19 01/17/19 01/17/19 17:54 04:06 04:23 RBC Hgb Hct Plt Count Lymph % (Auto) [place] % (Auto) Lymph # Seg Neutrophils % Seg Neutrophils # APTT POC ABG pH POC ABG pCO2 33.7 L POC ABG pO2 VBG pH Sodium Potassium Chloride Carbon Dioxide BUN Creatinine Glucose POC Glucose 123 H 161 H Lactic Acid Calcium Phosphorus AST ALT CK-MB (CK-2) CK-MB (CK-2) Rel Index Total Protein Albumin Ur Specific [place] 01/17/19 01/18/19 01/19/19 11:20 04:34 11:55 RBC Hgb Hct Plt Count Lymph % (Auto) [place] % (Auto) Lymph # Seg Neutrophils % Seg Neutrophils # APTT POC ABG pH 7.498 H 7.484 H POC ABG pCO2 32.1 L POC ABG pO2 121 H 52 L VBG pH Sodium Potassium Chloride Carbon Dioxide BUN Creatinine Glucose POC Glucose Lactic Acid Calcium Phosphorus AST ALT CK-MB (CK-2) CK-MB (CK-2) Rel Index Total Protein Albumin Ur Specific [place] 01/19/19 01/20/19 01/20/19 23:45 06:30 13:22 RBC Hgb Hct Plt Count Lymph % (Auto) [place] % (Auto) Lymph # Seg Neutrophils % Seg Neutrophils # APTT POC ABG pH POC ABG pCO2 POC ABG pO2 VBG pH Sodium Potassium Chloride Carbon Dioxide BUN Creatinine Glucose POC Glucose 128 H 107 H 149 H Lactic Acid Calcium Phosphorus AST ALT CK-MB (CK-2) CK-MB (CK-2) Rel Index Total Protein Albumin Ur Specific [place] 01/20/19 01/20/19 01/20/19 16:07 18:11 22:53 RBC Hgb Hct Plt Count Lymph % (Auto) [place] % (Auto) Lymph # Seg Neutrophils % Seg Neutrophils # APTT POC ABG pH 7.518 H POC ABG pCO2 POC ABG pO2 210 H VBG pH Sodium Potassium Chloride Carbon Dioxide BUN Creatinine Glucose POC Glucose 139 H 166 H Lactic Acid Calcium Phosphorus AST ALT CK-MB (CK-2) CK-MB (CK-2) Rel Index Total Protein Albumin Ur Specific [place] 01/21/19 01/21/19 01/21/19 04:36 04:47 04:47 RBC 2.89 L Hgb 8.9 L Hct 26.7 L Plt Count Lymph % (Auto) 13.0 L [place] % (Auto) 9.6 H Lymph # 0.7 L Seg Neutrophils % 77.0 H Seg Neutrophils # APTT POC ABG pH POC ABG pCO2 POC ABG pO2 VBG pH Sodium 134 L Potassium Chloride 96.9 L Carbon Dioxide BUN 18 H Creatinine 0.4 L Glucose 138 H POC Glucose 138 H Lactic Acid Calcium 8.0 L Phosphorus AST 171 H ALT 102 H CK-MB (CK-2) CK-MB (CK-2) Rel Index Total Protein 5.6 L Albumin 2.2 L Ur Specific [place] 01/22/19 01/22/19 01/22/19 00:31 05:27 12:16 RBC Hgb Hct Plt Count Lymph % (Auto) [place] % (Auto) Lymph # Seg Neutrophils % Seg Neutrophils # APTT POC ABG pH POC ABG pCO2 POC ABG pO2 VBG pH Sodium Potassium Chloride Carbon Dioxide BUN Creatinine Glucose POC Glucose 113 H 106 H 113 H Lactic Acid Calcium Phosphorus AST ALT CK-MB (CK-2) CK-MB (CK-2) Rel Index Total Protein Albumin Ur Specific [place] 01/23/19 01/23/19 01/23/19 00:35 05:43 11:55 RBC Hgb Hct Plt Count Lymph % (Auto) [place] % (Auto) Lymph # Seg Neutrophils % Seg Neutrophils # APTT POC ABG pH POC ABG pCO2 POC ABG pO2 VBG pH Sodium Potassium Chloride Carbon Dioxide BUN Creatinine Glucose POC Glucose 120 H 139 H 119 H Lactic Acid Calcium Phosphorus AST ALT CK-MB (CK-2) CK-MB (CK-2) Rel Index Total Protein Albumin Ur Specific [place] 01/23/19 01/24/19 01/24/19 18:34 00:40 05:42 RBC Hgb Hct Plt Count Lymph % (Auto) [place] % (Auto) Lymph # Seg Neutrophils % Seg Neutrophils # APTT POC ABG pH POC ABG pCO2 POC ABG pO2 VBG pH Sodium Potassium Chloride Carbon Dioxide BUN Creatinine Glucose POC Glucose 146 H 136 H 119 H Lactic Acid Calcium Phosphorus AST ALT CK-MB (CK-2) CK-MB (CK-2) Rel Index Total Protein Albumin Ur Specific [place] 11/01/25/19 01/25/19 11:35 00:09 06:30 RBC Hgb Hct Plt Count Lymph % (Auto) [place] % (Auto) Lymph # Seg Neutrophils % Seg Neutrophils # APTT POC ABG pH POC ABG pCO2 POC ABG pO2 VBG pH Sodium Potassium Chloride Carbon Dioxide BUN Creatinine Glucose POC Glucose 117 H 119 H 127 H Lactic Acid Calcium Phosphorus AST ALT CK-MB (CK-2) CK-MB (CK-2) Rel Index Total Protein Albumin Ur Specific [place] 01/25/19 01/26/19 01/26/19 12:10 00:21 04:12 RBC 3.05 L Hgb 9.3 L Hct 27.5 L Plt Count Lymph % (Auto) [place] % (Auto) 10.0 H Lymph # 0.9 L Seg Neutrophils % 73.9 H Seg Neutrophils # APTT POC ABG pH POC ABG pCO2 POC ABG pO2 VBG pH Sodium Potassium Chloride Carbon Dioxide BUN Creatinine Glucose POC Glucose 109 H 125 H Lactic Acid Calcium Phosphorus AST ALT CK-MB (CK-2) CK-MB (CK-2) Rel Index Total Protein Albumin Ur Specific [place] 01/26/19 01/27/19 01/27/19 04:12 04:49 04:49 RBC 3.11 L Hgb 9.5 L Hct 28.0 L Plt Count 477 H Lymph % (Auto) 7.4 L [place] % (Auto) Lymph # 0.8 L Seg Neutrophils % 87.7 H Seg Neutrophils # 9.0 H APTT POC ABG pH POC ABG pCO2 POC ABG pO2 VBG pH Sodium 133 L 131 L Potassium 5.4 H D Chloride Carbon Dioxide 20 L BUN 26 H 28 H Creatinine 0.5 L 0.5 L Glucose POC Glucose Lactic Acid Calcium Phosphorus 4.60 H AST 161 H 82 H ALT 208 H 122 H CK-MB (CK-2) CK-MB (CK-2) Rel Index Total Protein 6.2 L Albumin 2.8 L 2.7 L Ur Specific [place] Allied health notes reviewed: nursing
--- NOTE | 2019-01-27 14:27 | Event Note ---
Date: 01/27/[address] results and patient to OR today. Will see patient tomorrow post-op.
--- NOTE | 2019-01-27 15:30 | Anesthesia Consultation ---
Anesthesia Consult and Med Hx Date of service: 01/27/19 - Airway Anesthetic Teeth Evaluation: Poor Intubation Access Assessment: Possibly Difficult (uncooperative with airway exam. Previously documented MP 2. Sister denies difficulty with neck mobility.) - Pulmonary Exam CTA: Yes - Cardiac Exam Cardiac Exam: RRR - Pre-Operative Health Status ASA Pre-Surgery Classification: ASA3, Emergency Proposed Anesthetic Plan: General - Pulmonary Hx Respiratory Symptoms: Yes (acute resp failure this admission now on prn BiPAP/O2) Home Oxygen Therapy: No - Cardiovascular System Hx Hypertension: No Hx Heart Attack/AMI: No Hx Percutaneous Transluminal Coronary Angioplasty (PTCA): No - Central Nervous System Hx Neuromuscular Disorder: Yes (cerebral palsy) Hx Seizures: Yes (childhood) CVA: No Hx Psychiatric Problems: Yes (developmental delay) - Gastrointestinal Hx Gastroesophageal Reflux Disease: No - Endocrine Hx Renal Disease: No Hx Liver Disease: No Hx Insulin Dependent Diabetes: No Hx Non-Insulin Dependent Diabetes: No Hx Thyroid Disease: No - Hematic Hx Anemia: Yes - Other Systems Hx Obesity: No - Additional Comments Anesthesia Medical History Comments: EGD for PEG placement performed 01/26 showed foreign material in stomach which could not be removed 2/2 size. Now scheduled for ex-lap, possible PEG placement. Consent obtained from sister, Angelique Meza.
--- NOTE | 2019-01-27 15:31 | Anesthesia Day of Surgery ---
Anesthesia Day of Surgery - Day of Surgery Patient Examined: Yes Patient H&P Reviewed: Yes Patient is NPO: Yes
--- NOTE | 2019-01-27 16:28 | Progress Note ---
Assessment and Plan Patient going to OR today for removal of foreign body and Peg placement. Dysphagia ;Failed swallow evaluation, GI evaluation noted and appreciated, for PEG placement. S/P EGD:for PEG placement 1. Large pieces of plastic in stomach; unable to remove through GE junction despite rat tooth forceps, snare, or Gunn net 2. Able to traverse pylorus (once plastic pushed to side) 3. Small hiatal hernia 4. LA Grade A esophagitis GI attempted foreign body removal PEG not placed due to foreign bodies present Recs: Gen Surg consult; patient will need surgical removal of foreign bodies in stomach, and possible exploration of small bowel. PEG can be placed at surgery.) Metabolic encephalopathy : Multifactorial, supportive care. Hyperkalemia ; calcium chloride ,monitor electrolytes Respiratory failure requiring intubation Extubated , On Bipap, when necessary Saturating well on nasal cannula oxygen Transaminitis ; Monitor LFTs closely, consult GI if needed Cerebral palsy Patient has known history of cerebral palsy. Fecal impaction Resolved, stool softeners as needed. Severe malnutrition /hypoalbuminemia Nutrition supplements, dietitian following Continue tube feeding DVT prophylaxis, On Heparin SQ. Subjective Date of service: 01/27/19 Principal diagnosis: Ac Hypoxemic and Hypercapnic Resp failure; Anemia; Cerebral palsy Interval history: 68-year-old female with known history of cerebral palsy was brought into the emergency room in respiratory distress. She is also known to have history of chronic constipation. She has been noticed to have increasing swelling of abdomen over the past few days. Upon arrival in the emergency room she was found to be constipated. She had a large bowel movement upon arrival. However because of her respiratory distress she was subsequently intubated. Her work-up however including CT of the abdomen shows fecal impaction. There has been no history of nausea vomiting. No fever or chills. Large foreign body in Stomach which could not be removed during EGD. Objective - Constitutional Vitals: Vital Signs - 12hr 01/27/19 01/27/19 01/27/19 07:40 08:40 08:50 Temperature 98.5 F Pulse Rate 90 Pulse Rate [ 92 H Anterior Throughout] Pulse Rate [ 92 H Bilateral Throughout] Pulse Rate [ From Monitor] Respiratory 20 Rate Respiratory 16 Rate [Anterior Throughout] Respiratory 16 Rate [Bilateral Throughout] Blood Pressure 133/78 O2 Sat by Pulse 98 95 Oximetry 01/27/19 01/27/19 01/27/19 10:00 13:12 14:00 Temperature 99.0 F Pulse Rate 51 L Pulse Rate [ 84 Anterior Throughout] Pulse Rate [ 84 Bilateral Throughout] Pulse Rate [ 90 From Monitor] Respiratory 20 18 Rate Respiratory 16 Rate [Anterior Throughout] Respiratory 16 Rate [Bilateral Throughout] Blood Pressure 102/59 O2 Sat by Pulse 98 83 L Oximetry General appearance: Present: no acute distress, well-nourished - EENT Eyes: PERRL, EOM intact ENT: hearing intact, clear oral mucosa Ears: bilateral: normal - Neck Neck: supple, normal ROM - Respiratory Respiratory effort: normal Respiratory: bilateral: CTA - Breasts Breasts: normal - Cardiovascular Rhythm: regular Heart Sounds: Present: S1 & S2. Absent: gallop, rub Extremities: pulses intact, No edema, normal color, Full ROM - Gastrointestinal General gastrointestinal: Present: soft, non-tender, non-distended, normal bowel sounds - Genitourinary Female genitourinary: normal - Integumentary Integumentary: clear, warm, dry - Musculoskeletal Musculoskeletal: 1, strength equal bilaterally - Neurologic Neurologic: moves all extremities - Psychiatric Psychiatric: memory intact, appropriate mood/affect, intact judgment & insight - Labs CBC & Chem 7: 01/27/19 04:49 01/27/19 04:49 Labs: Abnormal lab results 01/27/19 01/27/19 Range/Units 04:49 04:49 RBC 3.11 L (3.65-5.03) M/mm3 Hgb 9.5 L (10.1-14.3) gm/dl Hct 28.0 L (30.3-42.9) % Plt Count 477 H (140-440) K/mm3 Lymph % (Auto) 7.4 L (13.4-35.0) % Lymph # 0.8 L (1.2-5.4) K/mm3 Seg Neutrophils % 87.7 H (40.0-70.0) % Seg Neutrophils # 9.0 H (1.8-7.7) K/mm3 Sodium 131 L (137-145) mmol/L Carbon Dioxide 20 L (22-30) mmol/L BUN 28 H (7-17) mg/dL Creatinine 0.5 L (0.7-1.2) mg/dL Phosphorus 4.60 H (2.5-4.5) mg/dL AST 82 H (5-40) units/L ALT 122 H (7-56) units/L Total Protein 6.2 L (6.3-8.2) g/dL Albumin 2.7 L (3.9-5) g/dL Abd CT IMPRESSION: 1. Overall decrease in the stool burden throughout the colon when compared to 01/13/2019 however the degree of severe adynamic ileus of the small large bowel has not improved in the interim. 2. Persistent severe anasarca. 3. Suspect bilateral lower lobe aspiration pneumonia.
[2019-01-27] MEDS ORDERED: TOTAL PARENTERAL NUTRITION 1,560 ML IV SCH (20:00)
[2019-01-27] MEDS ORDERED: HYDROmorphone 1 MG/1 ML INJ IV PRN (20:32)
[2019-01-27] MEDS: QUEtiapine 200 MG TAB PO SCH (21:00)
[2019-01-27] MEDS: HALOPERIDOL 5 MG TAB PO SCH (21:00)
[2019-01-27] MEDS ORDERED: LIDOCAINE (1%) 10 MG/1 ML VIAL 20 ML MDV ONE (21:44)
[2019-01-27] MEDS ORDERED: fentaNYL 100 MCG/2 ML INJ ONE (21:44)
[2019-01-27] MEDS ORDERED: BUPIVACAINE/PF (0.5%) 5 MG/1 ML 30 ML VIAL INFILTRATI ONE (21:44)
[2019-01-27] MEDS ORDERED: PROPOFOL 200 MG/20 ML VIAL IV ONE (21:44)
[2019-01-27] MEDS ORDERED: LIDOCAINE MPF (2%) 20 MG/1 ML VIAL 5 ML ONE (21:45)
[2019-01-27] MEDS ORDERED: ceFAZolin 1 GM VIAL ONE (21:45)
[2019-01-27] MEDS ORDERED: ROCURONIUM 50 MG/5 ML INJ IV ONE (21:47)
[2019-01-27] MEDS ORDERED: SODIUM CHLORIDE 0.9% IRR 1,000 ML BOTTLE IR ONE (22:40)
[2019-01-27] MEDS ORDERED: PHENYLEPHRINE/NS 1,000 MCG/10 ML SYRINGE (OR USE) IV ONE (23:00)
[2019-01-27] MEDS ORDERED: dexAMETHasone 20 MG/5 ML VIAL ONE (23:24)
[2019-01-27] MEDS ORDERED: NEOSTIGMINE 10MG/10 ML INJ MDV ONE (23:24)
[2019-01-27] MEDS ORDERED: ONDANSETRON 4 MG/2 ML INJ ONE (23:24)
[2019-01-27] MEDS ORDERED: GLYCOPYRROLATE 0.4 MG/2 ML INJ ONE (23:24)
--- NOTE | 2019-01-27 23:41 | Post Operative Note ---
Date of procedure: 01/27/19 (dictation: [id number]) Pre-op diagnosis: foreign body ingestion Post-op diagnosis: same Findings: plastic glove found in cecum. Procedure: Ex Lap Gastro-Jejunostomy tube placement removal of foreign body from cecum [id number] EBL min UOP 50cc Anesthesia: GETA Surgeon: IRAIDA FRIEDMAN Estimated blood loss: minimal Pathology: list (foreign body) Specimen disposition: to lab Condition: stable Disposition: PACU
--- NOTE | 2019-01-28 00:28 | Post Anesthesia Evaluation ---
- Post Anesthesia Evaluation Patient Participated: No (returned to baseline mentation) Airway Patent: Yes Stable Respiratory Function: Yes Nausea/Vomiting: No Temp > 96.8F: Yes Pain Manageable: Yes Adequeate Hydration: Yes Anesthesia Complications: No
[2019-01-28] MEDS: IPRATROPIUM/ALBUTEROL SULFATE 3 ML AMPUL.NEB IH SCH ×4 (02:00→13:03)
[2019-01-28 04:42] LABS: Hematocrit 26.5 % (30.3-42.9); Hemoglobin 8.9 gm/dl (10.1-14.3); Mean Corpuscular HGB Conc 34 % (30-34); Mean Corpuscular Volume 90 fl (79-97); Platelet Count 514 K/mm3 (140-440); Red Blood Count 2.94 M/mm3 (3.65-5.03); Red Cell Distribution Width 13.4 % (13.2-15.2)
[2019-01-28 05:01] LABS: Alanine Aminotransferase 108 units/L (7-56); Albumin 2.7 g/dL (3.9-5); BUN/Creatinine Ratio 84; Blood Urea Nitrogen 42 mg/dL (7-17); Calcium 8.4 mg/dL (8.4-10.2); Hemolysis Index 1
[2019-01-28 06:15] LABS: Band Neutrophils # (Manual) 0.3 K/mm3; Basophils % (Manual) 0 % (0.0-1.8); Eosinophils % (Manual) 0 % (0.0-4.3); Total Cells Counted 100
[2019-01-28 06:16] LABS: Anisocytosis 1+; Platelet Estimate Consistent w Auto
[2019-01-28] MEDS: HEPARIN 5,000 UNIT/1 ML VIAL SUB-Q SCH ×2 (09:51→21:25)
[2019-01-28] MEDS: LORazepam 1 MG TAB PO SCH ×3 (09:53→23:51)
[2019-01-28] MEDS: POLYETHYLENE GLYCOL 3350 17 GM POWDER PO SCH ×2 (09:53→11:30)
--- NOTE | 2019-01-28 11:10 | Progress Note ---
Assessment and Plan - Patient Problems (1) Foreign body alimentary tract Current Visit: Yes Status: Acute Qualifiers: Encounter type: initial encounter Qualified Code(s): T18.9XXA - Foreign body of alimentary tract, part unspecified, initial encounter Plan to address problem: Pt stable. s/p foreign body removal from cecum and Gastro-Jejunal feeding tube placement - 01/27 - POD#1. No apparent complications. Rec: 1) May use gastric port for meds only today 2) Will begin tube feedings in the next few days. Would like to allow time for cecal incision to heal. Please call with questions. Subjective Date of service: 01/28/19 Patient Reports: Positive: no new complaints Objective Vital Signs - 12hr 01/28/19 01/28/19 01/28/19 00:10 00:15 00:20 Temperature Pulse Rate 66 66 65 Pulse Rate [ Bilateral Throughout] Respiratory 13 12 14 Rate Respiratory Rate [Bilateral Throughout] Blood Pressure 126/78 127/73 128/75 O2 Sat by Pulse 100 100 100 Oximetry 01/28/19 01/28/19 01/28/19 00:25 00:35 07:38 Temperature 98.9 F 98.6 F Pulse Rate 68 73 94 H Pulse Rate [ Bilateral Throughout] Respiratory 23 18 18 Rate Respiratory Rate [Bilateral Throughout] Blood Pressure 130/73 132/82 125/78 O2 Sat by Pulse 100 97 96 Oximetry 01/28/19 09:17 Temperature Pulse Rate Pulse Rate [ 80 Bilateral Throughout] Respiratory Rate Respiratory 16 Rate [Bilateral Throughout] Blood Pressure O2 Sat by Pulse 97 Oximetry - General physical appearance no distress, no pain - Respiratory normal expansion, normal respiratory effort - Abdomen soft, not distended, other (G-J tube in place) - Integumentary no rash, no growths, no abnormal pigmentation - Labs 01/28/19 04:13 01/28/19 04:13 Diabetes panel 01/28/19 Range/Units 04:13 Sodium 137 (137-145) mmol/L Potassium 4.0 (3.6-5.0) mmol/L Chloride 104.3 (98-107) mmol/L Carbon Dioxide 19 L (22-30) mmol/L BUN 42 H (7-17) mg/dL Creatinine 0.5 L (0.7-1.2) mg/dL Glucose 134 H (65-100) mg/dL Calcium 8.4 (8.4-10.2) mg/dL AST 91 H (5-40) units/L ALT 108 H (7-56) units/L Alkaline Phosphatase 97 (35-129) units/L Total Protein 6.1 L (6.3-8.2) g/dL Albumin 2.7 L (3.9-5) g/dL Calcium panel 01/28/19 01/28/19 Range/Units 04:13 08:47 Calcium 8.4 (8.4-10.2) mg/dL Phosphorus 2.80 D (2.5-4.5) mg/dL Albumin 2.7 L (3.9-5) g/dL Pituitary panel 01/28/19 Range/Units 04:13 Sodium 137 (137-145) mmol/L Potassium 4.0 (3.6-5.0) mmol/L Chloride 104.3 (98-107) mmol/L Carbon Dioxide 19 L (22-30) mmol/L BUN 42 H (7-17) mg/dL Creatinine 0.5 L (0.7-1.2) mg/dL Glucose 134 H (65-100) mg/dL Calcium 8.4 (8.4-10.2) mg/dL Adrenal panel 01/28/19 Range/Units 04:13 Sodium 137 (137-145) mmol/L Potassium 4.0 (3.6-5.0) mmol/L Chloride 104.3 (98-107) mmol/L Carbon Dioxide 19 L (22-30) mmol/L BUN 42 H (7-17) mg/dL Creatinine 0.5 L (0.7-1.2) mg/dL Glucose 134 H (65-100) mg/dL Calcium 8.4 (8.4-10.2) mg/dL Total Bilirubin 0.20 (0.1-1.2) mg/dL AST 91 H (5-40) units/L ALT 108 H (7-56) units/L Alkaline Phosphatase 97 (35-129) units/L Total Protein 6.1 L (6.3-8.2) g/dL Albumin 2.7 L (3.9-5) g/dL
--- NOTE | 2019-01-28 12:45 | Progress Note ---
Assessment and Plan Assessment and plan: 68-year-old woman who was brought to the hospital for constipation and increasing swelling of the abdomen. Per her sister she was having trouble swallowing, she was admitted with fecal impaction. Patient has history of cerebral palsy, mental retardation and chronic constipation. dyphagia and FB in GI tract he has a known hx of eating paper, plastic etc due to MR-CP -sp exlap with removal of FB, plastic glove in cecum and placement of PEG -General surgery input appreciated, continue only meds per PEG tube. Will wait for cecal incision to heal prior to starting tube feeding Ataxia/generalized weakness PT consult pending Metabolic encephalopathy : Multifactorial, supportive care. Hyperkalemia ; calcium chloride ,monitor electrolytes Respiratory failure requiring intubation/mechanical ventilator less than 96 hours Extubated , On Bipap, when necessary Saturating well on nasal cannula oxygen Transaminitis ; Monitor LFTs closely, consult GI if needed Cerebral palsy Patient has known history of cerebral palsy. Fecal impaction Resolved, stool softeners as needed. Severe malnutrition /hypoalbuminemia Nutrition supplements, dietitian following Continue tube feeding DVT prophylaxis, On Heparin SQ. History Interval history: Review of systems Constitutional: No fevers, no malaise, no joint pains CVS: No chest pain, no orthopnea, no pedal edema GI: No abdominal pain, no diarrhea, no vomiting, no constipation Respiratory: , no wheezing, no coughing Hospitalist Physical - Physical exam Narrative exam: General.: Appears well, no distress, nontoxic HEENT: Moist mucous membranes, extraocular muscles intact, no lymphadenopathy, poor dentition Neck: supple Cardiac: S1-S2 heard Lungs: clear to auscultation bilaterally Abdomen: soft , nontender, somewhat distended, bowel sounds positive Extremities: no edema clubbing or cyanosis Skin: no rash or lesions Neurologic: Moves all extremities, generalized weakness, mentally retarded, only able to see how you are doing, cannot answer any other questions about her well-being Psych: calm, and cooperative - Constitutional Vitals: Temp Pulse Resp BP Pulse Ox 98.6 F 80 16 125/78 97 01/28/19 07:38 01/28/19 09:17 01/28/19 09:17 01/28/19 07:38 01/28/19 09:17 General appearance: Present: no acute distress, well-nourished Results - Labs CBC & Chem 7: 01/28/19 04:13 01/29/19 08:47 Labs: Laboratory Last Values WBC 14.9 K/mm3 (4.5-11.0) H 01/28/19 04:13 RBC 2.94 M/mm3 (3.65-5.03) L 01/28/19 04:13 Hgb 8.9 gm/dl (10.1-14.3) L 01/28/19 04:13 Hct 26.5 % (30.3-42.9) L 01/28/19 04:13 MCV 90 fl (79-97) 01/28/19 04:13 MCH 30 pg (28-32) 01/28/19 04:13 MCHC 34 % (30-34) 01/28/19 04:13 RDW 13.4 % (13.2-15.2) 01/28/19 04:13 Plt Count 514 K/mm3 (140-440) H 01/28/19 04:13 Lymph % (Auto) 7.4 % (13.4-35.0) L 01/27/19 04:49 Braxton % (Auto) 4.4 % (0.0-7.3) 01/27/19 04:49 Eos % (Auto) 0.1 % (0.0-4.3) 01/27/19 04:49 Baso % (Auto) 0.4 % (0.0-1.8) 01/27/19 04:49 Lymph # 0.8 K/mm3 (1.2-5.4) L 01/27/19 04:49 Braxton # 0.4 K/mm3 (0.0-0.8) 01/27/19 04:49 Eos # 0.0 K/mm3 (0.0-0.4) 01/27/19 04:49 Baso # 0.0 K/mm3 (0.0-0.1) 01/27/19 04:49 Add Manual Diff Complete 01/28/19 04:13 Total Counted 100 01/28/19 04:13 Seg Neutrophils % Forming Fixer 01/28/19 04:13 Seg Neuts % (Manual) 93.0 % (40.0-70.0) H 01/28/19 04:13 Band Neutrophils % 2.0 % 01/28/19 04:13 Lymphocytes % (Manual) 2.0 % (13.4-35.0) L 01/28/19 04:13 Reactive Lymphs % (Man) 0 % 01/28/19 04:13 Monocytes % (Manual) 3.0 % (0.0-7.3) 01/28/19 04:13 Eosinophils % (Manual) 0 % (0.0-4.3) 01/28/19 04:13 Basophils % (Manual) 0 % (0.0-1.8) 01/28/19 04:13 Metamyelocytes % 0 % 01/28/19 04:13 Myelocytes % 0 % 01/28/19 04:13 Promyelocytes % 0 % 01/28/19 04:13 Blast Cells % 0 % 01/28/19 04:13 Nucleated RBC % Not Reportable 01/28/19 04:13 Seg Neutrophils # 9.0 K/mm3 (1.8-7.7) H 01/27/19 04:49 Seg Neutrophils # Man 13.9 K/mm3 (1.8-7.7) H 01/28/19 04:13 Band Neutrophils # 0.3 K/mm3 01/28/19 04:13 Lymphocytes # (Manual) 0.3 K/mm3 (1.2-5.4) L 01/28/19 04:13 Abs React Lymphs (Man) 0.0 K/mm3 01/28/19 04:13 Monocytes # (Manual) 0.4 K/mm3 (0.0-0.8) 01/28/19 04:13 Eosinophils # (Manual) 0.0 K/mm3 (0.0-0.4) 01/28/19 04:13 Basophils # (Manual) 0.0 K/mm3 (0.0-0.1) 01/28/19 04:13 Metamyelocytes # 0.0 K/mm3 01/28/19 04:13 Myelocytes # 0.0 K/mm3 01/28/19 04:13 Promyelocytes # 0.0 K/mm3 01/28/19 04:13 Blast Cells # 0.0 K/mm3 01/28/19 04:13 WBC Morphology Not Reportable 01/28/19 04:13 Hypersegmented Neuts Not Reportable 01/28/19 04:13 Hyposegmented Neuts Not Reportable 01/28/19 04:13 Hypogranular Neuts Not Reportable 01/28/19 04:13 Smudge Cells Not Reportable 01/28/19 04:13 Toxic Granulation Not Reportable 01/28/19 04:13 Toxic Vacuolation Not Reportable 01/28/19 04:13 Dohle Bodies Not Reportable 01/28/19 04:13 Pelger-Huet Anomaly Not Reportable 01/28/19 04:13 Shivani Rods Not Reportable 01/28/19 04:13 Platelet Estimate Consistent w auto 01/28/19 04:13 Clumped Platelets Not Reportable 01/28/19 04:13 Plt Clumps, EDTA Not Reportable 01/28/19 04:13 Large Platelets Not Reportable 01/28/19 04:13 Giant Platelets Not Reportable 01/28/19 04:13 Platelet Satelliting Not Reportable 01/28/19 04:13 Plt Morphology Comment Not Reportable 01/28/19 04:13 RBC Morphology Not Reportable 01/28/19 04:13 Dimorphic RBCs Not Reportable 01/28/19 04:13 Polychromasia Not Reportable 01/28/19 04:13 Hypochromasia Not Reportable 01/28/19 04:13 Poikilocytosis Not Reportable 01/28/19 04:13 Anisocytosis 1+ 01/28/19 04:13 Microcytosis Not Reportable 01/28/19 04:13 Macrocytosis Not Reportable 01/28/19 04:13 Spherocytes Not Reportable 01/28/19 04:13 Pappenheimer Bodies Not Reportable 01/28/19 04:13 Sickle Cells Not Reportable 01/28/19 04:13 Target Cells Not Reportable 01/28/19 04:13 Tear Drop Cells Not Reportable 01/28/19 04:13 Ovalocytes Not Reportable 01/28/19 04:13 Helmet Cells Not Reportable 01/28/19 04:13 [place] Bodies Not Reportable 01/28/19 04:13 [place] Rings Not Reportable 01/28/19 04:13 [place] Cells Not Reportable 01/28/19 04:13 Bite Cells Not Reportable 01/28/19 04:13 Crenated Cell Not Reportable 01/28/19 04:13 Elliptocytes Not Reportable 01/28/19 04:13 Acanthocytes (Spur) Not Reportable 01/28/19 04:13 Rouleaux Not Reportable 01/28/19 04:13 Hemoglobin C Crystals Not Reportable 01/28/19 04:13 Schistocytes Not Reportable 01/28/19 04:13 Malaria parasites Not Reportable 01/28/19 04:13 Sebas Bodies Not Reportable 01/28/19 04:13 Hem Pathologist Commnt No 01/28/19 04:13 PT 12.9 Sec. (12.2-14.9) 01/26/19 04:12 INR 0.98 (0.87-1.13) 01/26/19 04:12 APTT 31.9 Sec. (24.2-36.6) 01/14/19 05:13 D-Dimer 135.00 ng/mlDDU (0-234) 01/13/19 00:27 POC ABG pH 7.518 (7.35-7.45) H 01/20/19 16:07 POC ABG pCO2 37.5 (35-45) 01/20/19 16:07 POC ABG pO2 210 (80-105) H 01/20/19 16:07 POC ABG HCO3 30.4 (22-26 mml/L) 01/20/19 16:07 POC ABG Total CO2 32 (23-27mmol/L) 01/20/19 16:07 POC ABG O2 Sat 100 01/20/19 16:07 POC ABG Base Excess 8 ((-2) - (+3)mmol/L) 01/20/19 16:07 VBG pH 7.178 (7.320-7.420) L* 01/13/19 00:27 FiO2 50 % 01/20/19 16:07 Sodium 137 mmol/L (137-145) 01/28/19 04:13 Potassium 4.0 mmol/L (3.6-5.0) 01/28/19 04:13 Chloride 104.3 mmol/L (98-107) 01/28/19 04:13 Carbon Dioxide 19 mmol/L (22-30) L 01/28/19 04:13 Anion Gap 18 mmol/L 01/28/19 04:13 BUN 42 mg/dL (7-17) H 01/28/19 04:13 Creatinine 0.5 mg/dL (0.7-1.2) L 01/28/19 04:13 Estimated GFR > 60 ml/min 01/28/19 04:13 BUN/Creatinine Ratio 84 % 01/28/19 04:13 Glucose 134 mg/dL (65-100) H 01/28/19 04:13 POC Glucose 159 (70-105) H 01/28/19 12:43 Lactic Acid 0.30 mmol/L (0.7-2.0) L 01/13/19 02:22 Calcium 8.4 mg/dL (8.4-10.2) 01/28/19 04:13 Phosphorus 2.80 mg/dL (2.5-4.5) D 01/28/19 08:47 Magnesium 2.10 mg/dL (1.7-2.3) 01/28/19 08:47 Total Bilirubin 0.20 mg/dL (0.1-1.2) 01/28/19 04:13 AST 91 units/L (5-40) H 01/28/19 04:13 ALT 108 units/L (7-56) H 01/28/19 04:13 Alkaline Phosphatase 97 units/L (35-129) 01/28/19 04:13 Ammonia 25.0 umol/L (25-60) 01/13/19 00:27 Total Creatine Kinase 106 units/L (30-135) 01/13/19 00:27 CK-MB (CK-2) 7.7 ng/mL (0.0-4.0) H 01/13/19 00:27 CK-MB (CK-2) Rel Index 7.2 (0-4) H 01/13/19 00:27 Troponin T < 0.010 ng/mL (0.00-0.029) 01/13/19 00:27 NT-Pro-B Natriuret Pep 52.36 pg/mL (0-900) 01/13/19 00:27 Total Protein 6.1 g/dL (6.3-8.2) L 01/28/19 04:13 Albumin 2.7 g/dL (3.9-5) L 01/28/19 04:13 Albumin/Globulin Ratio 0.8 % 01/28/19 04:13 Urine Color Yellow (Yellow) 01/13/19 02:34 Urine Turbidity Slightly-cloudy (Clear) 01/13/19 02:34 Urine pH 5.0 (5.0-7.0) 01/13/19 02:34 Ur Specific [place] 1.051 (1.003-1.030) H 01/13/19 02:34 Urine Protein <15 mg/dl mg/dL (Negative) 01/13/19 02:34 Urine Glucose (UA) 50 mg/dL (Negative) 01/13/19 02:34 Urine Ketones Neg mg/dL (Negative) 01/13/19 02:34 Urine Blood Neg (Negative) 01/13/19 02:34 Urine Nitrite Neg (Negative) 01/13/19 02:34 Urine Bilirubin Neg (Negative) 01/13/19 02:34 Urine Urobilinogen < 2.0 mg/dL (<2.0) 01/13/19 02:34 Ur Leukocyte Esterase Neg (Negative) 01/13/19 02:34 Urine WBC (Auto) < 1.0 /HPF (0.0-6.0) 01/13/19 02:34 Urine RBC (Auto) < 1.0 /HPF (0.0-6.0) 01/13/19 02:34 U Epithel Cells (Auto) < 1.0 /HPF (0-13.0) 01/13/19 02:34 Urine Bacteria (Auto) 1+ /HPF (Negative) 01/13/19 02:34 Urine Mucus 1+ /HPF 01/13/19 02:34 Blood Type O POSITIVE 01/27/19 16:00 Antibody Screen Negative 01/27/19 16:00 Active Medications - Current Medications Current Medications: Generic Name Dose Route Start Last Admin Trade Name Freq PRN Reason Stop Dose Admin Acetaminophen 650 mg 01/13/19 04:55 Tylenol NJ Q6H PRN Pain MILD(1-3)/Fever >100.5/WOOD Albuterol/Ipratropium 1 ampul 01/22/19 14:00 01/28/19 09:00 Duoneb *Not For Prn Use* IH 1 ampul Q6HRT JOAN Administration Lipase/Protease/Amylase 1 each 01/19/19 13:12 Pancreazsundeep Schwartz 10,500 Unit FEEDTUBE PRN PRN For Clogged Feeding Tube Bisacodyl 10 mg 01/13/19 04:55 01/16/19 11:30 Dulcolax NJ 10 mg QDAY PRN Administration constipation unrelieved by MOM Dextrose 25 ml 01/15/19 08:51 01/15/19 09:00 D50w (25gm) Syringe IV 25 ml Q30MIN PRN Administration Hypoglycemia Protocol Haloperidol 5 mg 01/15/19 22:00 01/27/19 21:00 Haldol PO Not Given QHS [facility] Heparin Sodium (Porcine) 5,000 unit 01/15/19 22:00 01/28/19 09:51 Heparin SUB-Q 5,000 unit Q12HR JOAN Administration Hydralazine HCl 10 mg 01/18/19 18:48 01/18/19 19:36 Apresoline IV 10 mg Q3HR PRN Administration SBP >/=160 Hydrophilic Ointment 1 applic 01/12/19 23:54 Vaseline Lip Therapy TP Q2HR PRN Dry Lips Amino Acids/Electrolytes/Dextrose 1,560 mls @ 65 mls/hr 01/27/19 20:00 01/27/19 20:03 Tpn Adult IV 01/28/19 19:59 65 mls/hr DAILY@1999 [facility] Administration Protocol Amino Acids/Electrolytes/Dextrose 1,560 mls @ 65 mls/hr 01/28/19 20:00 Tpn Adult IV DAILY@1999 [facility] Protocol Ketorolac Tromethamine 15 mg 01/26/19 15:32 01/27/19 10:54 Toradol IV 01/31/19 15:31 15 mg Q6H PRN Administration Pain, Mild (1-3) Lorazepam 1 mg 01/20/19 22:00 01/28/19 11:30 Ativan PO 1 mg BID JOAN Administration Multi-Ingred Cream/Lotion/Oil/Oint 1 applic 01/12/19 23:54 Artificial Tears Ophth Oint OU Q4HR PRN Dry Eye(s) Ondansetron HCl 4 mg 01/13/19 04:55 Zofran IV Q8H PRN Nausea And Vomiting Polyethylene Glycol 17 gm 01/25/19 10:00 01/28/19 11:30 Miralax 3350 PO 17 gm QDAY JOAN Administration Quetiapine Fumarate 400 mg 01/22/19 22:00 01/27/19 21:00 Seroquel PO Not Given QHS JOAN Simple Syrup 15 ml 01/19/19 13:12 Simple Syrup FEEDTUBE PRN PRN Hypoglycemia Simple Syrup 30 ml 01/19/19 13:12 Simple Syrup FEEDTUBE PRN PRN Hypoglycemia Sodium Bicarbonate 325 mg 01/19/19 13:12 Sodium Bicarbonate FEEDTUBE PRN PRN For Clogged Feeding Tube Sodium Chloride 10 ml 01/13/19 10:00 01/28/19 09:52 Sodium Chloride Flush Syringe 10 Ml IV 10 ml BID JOAN Administration Sodium Chloride 10 ml 01/13/19 04:55 01/26/19 17:15 Sodium Chloride Flush Syringe 10 Ml IV 10 ml PRN PRN Administration LINE FLUSH Nutrition/Malnutrition Assess - Dietary Evaluation Nutrition/Malnutrition Findings: Nutrition Notes Start: 01/13/19 12:10 Freq: Status: Active Protocol: Document 01/28/19 10:31 LM (Rec: 01/28/19 10:42 LM [email or web address]) Nutrition Notes Initial or Follow up Reassessment Current Diagnosis Respiratory Failure Other Pertinent Diagnosis Cerebral palsy, Seizure, fecal impaction, dehydration Current Diet PPN at 65 ml/hr Labs/Tests BUN 42 Cr 0.5 BG 134 Pertinent Medications Reviewed Height 5 ft 2 in Weight 38 kg [place] Body Weight (kg) 50.00 BMI 15.3 Weight Status Underweight Subjective/Other Information PPN day 2. Family member in room at time of visit. Family member stated that pt was able to eat fine [employer] but had wt loss that began 4 months ago. Family was not aware of what caused the wt loss but stated pt would walk a lot. Pt with severe muscle and fat wasting. Percent of energy/protein needs met: 33%/100% Burn Absent Trauma Absent GI Symptoms None Difficulty In Swallowing,Chewing Current % PO Negligible Minimum of two criteria Yes Interpretation of Weight Loss (non- 7.5% in 3 months severe) Body Fat Depletion Moderate depletion (severe) Muscle Mass Moderate Depletion (severe) #2 Nutrition Diagnosis Malnutrition Etiology cerebral palsy, chronic illness, dysphagia As Evidenced by Signs and Symptoms pt with with severe muscle and fat wasting, wt loss, and BMI 15.3 #1 Nutrition Diagnosis Inadequate oral intake Diagnosis Progress(for reassessment Continues documentation) Is patient on ventilator? No Is Patient Ambulatory and/or Out of Bed No REE-([facility]-confined to bed) 1041.972 Kcal/Kg value to use for calculation 42 Approximate Energy Requirements Using 1596 kcal/Kg Calculation Used for Recommendations Kcal/kg Additional Notes PRO: 38-46g/day (1.0-1.2g/kg) Fluid: 1 ml/kcal Nutrition Intervention Change Diet Order: Continue PPN Nutrition Support: PPN at 65 ml/hr: 7.4% dextrose , 20 mEq K, 4 mEq Mg, 10 mmol phos, MVI, thiamine; 899 mOsm Kcal 575 Protein (gm) 46 Carbohydrates (gm) 115 Fat (gm) 0 Fluid (mL) 1,560 Goal #1 Meet needs as best as possible via PPN Anticipated Discharge Needs: Unable to determine at this time Follow-Up By: 01/29/19 Additional Comments Labs in AM: BMP, Mg, Phos
--- NOTE | 2019-01-28 13:38 | Operative Report ---
PREOPERATIVE DIAGNOSES: 1. Foreign body ingestion. 2. Dysphagia. POSTOPERATIVE DIAGNOSES: 1. Foreign body ingestion. 2. Dysphagia. PROCEDURES: 1. Exploratory laparotomy. 2. Gastrojejunostomy tube placement. 3. Removal of foreign body from the cecum. ATTENDING PHYSICIAN: Armin Feliciano MD ANESTHESIA: General. ESTIMATED BLOOD LOSS: Minimal. FLUIDS: 1100 mL. URINE OUTPUT: 50 mL. FINDINGS: The patient had a foreign body in the cecum that turned out to be a plastic glove. No other foreign bodies were identified. IMPLANT: A 22-Icelandic gastrojejunostomy feeding tube. SPECIMEN: Foreign body. COMPLICATIONS: None. DISPOSITION: Stable, transferred to Recovery Room. INDICATIONS: This is a 68-year-old female who presented with abdominal pain and bloating. The patient was found to have fecal impaction. This was resolved; however, during an attempt for feeding tube placement by GI, the patient was noted to have a large foreign body in the stomach that could not be retrieved. Therefore, General Surgery was consulted. The patient was assessed to be need for operative exploration. Procedure, risks, benefits were explained to the sister. Risks included but were not limited to infection, bleeding, pain, injury to surrounding structures, possible need for further procedures in the future. Sister understood and consented. OPERATIVE NOTE: The patient was brought to the operating room and placed on the table in supine position. After adequate general anesthesia was established, the patient was prepped and draped in the usual sterile fashion. Antibiotics have been given. SCDs were in place. Time-out was called. I began by making a midline incision. The entire abdomen was examined. There was no foreign body in the stomach; however, after running the small bowel and checked in the colon, we found the foreign body that was sitting in the cecum. No other foreign bodies were identified. At this point, the plan was to make a small cecotomy to remove the foreign body. We will do a primary repair and then subsequently do the feeding tube placement. Cecum was toweled off to catch any spillage. Small incision was made in line with the tinea. Foreign body was easily identified and removed. There was no spillage of intestinal contents, interrupted 3-0 silk sutures were used to close the opening and then 3-0 silk Lembert sutures were placed to reinforce it. Everything looked good. There was no spillage, bowel was viable. We then turned our attention to the stomach through her old PEG site. I brought through a 22-Icelandic gastrojejunostomy tube. Small opening was made in the stomach close to where the abdominal wall incision was made. Around this area, we placed a 2-0 Prolene pursestring suture. Small gastrotomy was made and then the catheter was passed into the stomach and into the duodenum. The patient was so thin and had no intraabdominal fat that we could easily see the first and second portion of the duodenum and palpate the tube going into it. The tube passed easily. I could feel that the tube was not coiled in the stomach. We insufflated the balloon and then pulled it back near the opening of the gastrotomy, pursestring suture was closed down and then that suture was used to attach the stomach at one point to the anterior abdominal wall. Additional 2-0 Prolene sutures were used to attach other portions of the stomach around the tube to the anterior abdominal wall. We laid what little omentum she had over the bowel. I placed a piece of Seprafilm under the incision because my concern was based on her history of repeated episodes of foreign body ingestion, I thought that in case we had to come back again for another foreign body, it would be easier to enter the abdominal cavity if we do not have significant adhesions. A #1 looped PDS suture was used to close the fascia in a running stitch. Skin was closed with diego. I secured the catheter to the abdomen with 2-0 nylon sutures. Skin was cleaned and dried, dressings were placed. Abdominal binder was placed. The patient tolerated the procedure well. There were no complications. All counts were correct at the end of the case. Foreign body was sent to pathology. I spoke with the family at the end of the case. JOB# [id number] CHRISSIE/SHANNA FRANCO
--- NOTE | 2019-01-28 13:50 | Gastroenterology Progress Note ---
Assessment and Plan - Patient Problems (1) Neurogenic dysphagia Current Visit: Yes Status: Acute Plan to address problem: - GJ tube placed at surgery during Exp Lap. - Advance as per surgical recommendations. (2) Fecal impaction Current Visit: Yes Status: Acute Plan to address problem: - Both severe stool impaction (resolved with laxatives) but also foreign body (see op note; patient has a hx of eating plastic/paper/etc per family). - No further GI recs at present. - Will sign off; please call if needed. Subjective Date of service: 01/28/19 Principal diagnosis: Dysphagia, Foreign Body Interval history: The events of yesterday are noted. The foreign body has been removed. The patient has had no N/V this shift, and remains mostly nonverbal (as per preop). She is awake and looking around/no obvious distress. Objective - Constitutional Vitals: Temp Pulse Resp BP Pulse Ox 98.6 F 75 16 125/78 97 01/28/19 07:38 01/28/19 13:03 01/28/19 13:03 01/28/19 07:38 01/28/19 09:17 General appearance: no acute distress - Respiratory Respiratory effort: normal Respiratory: bilateral: CTA - Cardiovascular Rhythm: regular Heart Sounds: Present: S1 & S2 - Gastrointestinal General gastrointestinal: Present: soft, non-tender, non-distended, other (Wound C/D/I) - Labs CBC & Chem 7: 01/28/19 04:13 01/28/19 04:13 Labs: Laboratory Results - last 24 hr 01/27/19 01/27/19 01/28/19 16:00 18:12 00:50 WBC RBC Hgb Hct MCV MCH MCHC RDW Plt Count Add Manual Diff Total Counted Seg Neutrophils % Seg Neuts % (Manual) Band Neutrophils % Lymphocytes % (Manual) Reactive Lymphs % (Man) Monocytes % (Manual) Eosinophils % (Manual) Basophils % (Manual) Metamyelocytes % Myelocytes % Promyelocytes % Blast Cells % Nucleated RBC % Seg Neutrophils # Man Band Neutrophils # Lymphocytes # (Manual) Abs React Lymphs (Man) Monocytes # (Manual) Eosinophils # (Manual) Basophils # (Manual) Metamyelocytes # Myelocytes # Promyelocytes # Blast Cells # WBC Morphology Hypersegmented Neuts Hyposegmented Neuts Hypogranular Neuts Smudge Cells Toxic Granulation Toxic Vacuolation Dohle Bodies Pelger-Huet Anomaly Shivani Rods Platelet Estimate Clumped Platelets Plt Clumps, EDTA Large Platelets Giant Platelets Platelet Satelliting Plt Morphology Comment RBC Morphology Dimorphic RBCs Polychromasia Hypochromasia Poikilocytosis Anisocytosis Microcytosis Macrocytosis Spherocytes Pappenheimer Bodies Sickle Cells Target Cells Tear Drop Cells Ovalocytes Helmet Cells [place] Bodies [place] Rings [place]y Cells Bite Cells Crenated Cell Elliptocytes Acanthocytes (Spur) Rouleaux Hemoglobin C Crystals Schistocytes Malaria parasites Sebas Bodies Hem Pathologist Commnt Sodium Potassium Chloride Carbon Dioxide Anion Gap BUN Creatinine Estimated GFR BUN/Creatinine Ratio Glucose POC Glucose 82 96 Calcium Phosphorus Magnesium Total Bilirubin AST ALT Alkaline Phosphatase Total Protein Albumin Albumin/Globulin Ratio Blood Type O POSITIVE Antibody Screen Negative 01/28/19 01/28/19 01/28/19 04:13 04:13 06:14 WBC 14.9 H RBC 2.94 L Hgb 8.9 L Hct 26.5 L MCV 90 MCH 30 MCHC 34 RDW 13.4 Plt Count 514 H Add Manual Diff Complete Total Counted 100 Seg Neutrophils % Hydraulic Plumber Helper Seg Neuts % (Manual) 93.0 H Band Neutrophils % 2.0 Lymphocytes % (Manual) 2.0 L Reactive Lymphs % (Man) 0 Monocytes % (Manual) 3.0 Eosinophils % (Manual) 0 Basophils % (Manual) 0 Metamyelocytes % 0 Myelocytes % 0 Promyelocytes % 0 Blast Cells % 0 Nucleated RBC % Not Reportable Seg Neutrophils # Man 13.9 H Band Neutrophils # 0.3 Lymphocytes # (Manual) 0.3 L Abs React Lymphs (Man) 0.0 Monocytes # (Manual) 0.4 Eosinophils # (Manual) 0.0 Basophils # (Manual) 0.0 Metamyelocytes # 0.0 Myelocytes # 0.0 Promyelocytes # 0.0 Blast Cells # 0.0 WBC Morphology Not Reportable Hypersegmented Neuts Not Reportable Hyposegmented Neuts Not Reportable Hypogranular Neuts Not Reportable Smudge Cells Not Reportable Toxic Granulation Not Reportable Toxic Vacuolation Not Reportable Dohle Bodies Not Reportable Pelger-Huet Anomaly Not Reportable Shivani Rods Not Reportable Platelet Estimate Consistent w auto Clumped Platelets Not Reportable Plt Clumps, EDTA Not Reportable Large Platelets Not Reportable Giant Platelets Not Reportable Platelet Satelliting Not Reportable Plt Morphology Comment Not Reportable RBC Morphology Not Reportable Dimorphic RBCs Not Reportable Polychromasia Not Reportable Hypochromasia Not Reportable Poikilocytosis Not Reportable Anisocytosis 1+ Microcytosis Not Reportable Macrocytosis Not Reportable Spherocytes Not Reportable Pappenheimer Bodies Not Reportable Sickle Cells Not Reportable Target Cells Not Reportable Tear Drop Cells Not Reportable Ovalocytes Not Reportable Helmet Cells Not Reportable [place] Bodies Not Reportable [place] Rings Not Reportable [place] Cells Not Reportable Bite Cells Not Reportable Crenated Cell Not Reportable Elliptocytes Not Reportable Acanthocytes (Spur) Not Reportable Rouleaux Not Reportable Hemoglobin C Crystals Not Reportable Schistocytes Not Reportable Malaria parasites Not Reportable Sebas Bodies Not Reportable Hem Pathologist Commnt No Sodium 137 Potassium 4.0 Chloride 104.3 Carbon Dioxide 19 L Anion Gap 18 BUN 42 H Creatinine 0.5 L Estimated GFR > 60 BUN/Creatinine Ratio 84 Glucose 134 H POC Glucose 159 H Calcium 8.4 Phosphorus Magnesium Total Bilirubin 0.20 AST 91 H ALT 108 H Alkaline Phosphatase 97 Total Protein 6.1 L Albumin 2.7 L Albumin/Globulin Ratio 0.8 Blood Type Antibody Screen 01/28/19 01/28/19 08:47 12:43 WBC RBC Hgb Hct MCV MCH MCHC RDW Plt Count Add Manual Diff Total Counted Seg Neutrophils % Seg Neuts % (Manual) Band Neutrophils % Lymphocytes % (Manual) Reactive Lymphs % (Man) Monocytes % (Manual) Eosinophils % (Manual) Basophils % (Manual) Metamyelocytes % Myelocytes % Promyelocytes % Blast Cells % Nucleated RBC % Seg Neutrophils # Man Band Neutrophils # Lymphocytes # (Manual) Abs React Lymphs (Man) Monocytes # (Manual) Eosinophils # (Manual) Basophils # (Manual) Metamyelocytes # Myelocytes # Promyelocytes # Blast Cells # WBC Morphology Hypersegmented Neuts Hyposegmented Neuts Hypogranular Neuts Smudge Cells Toxic Granulation Toxic Vacuolation Dohle Bodies Pelger-Huet Anomaly Shivani Rods Platelet Estimate Clumped Platelets Plt Clumps, EDTA Large Platelets Giant Platelets Platelet Satelliting Plt Morphology Comment RBC Morphology Dimorphic RBCs Polychromasia Hypochromasia Poikilocytosis Anisocytosis Microcytosis Macrocytosis Spherocytes Pappenheimer Bodies Sickle Cells Target Cells Tear Drop Cells Ovalocytes Helmet Cells [place] Bodies [place] Rings [place] Cells Bite Cells Crenated Cell Elliptocytes Acanthocytes (Spur) Rouleaux Hemoglobin C Crystals Schistocytes Malaria parasites Sebas Bodies Hem Pathologist Commnt Sodium Potassium Chloride Carbon Dioxide Anion Gap BUN Creatinine Estimated GFR BUN/Creatinine Ratio Glucose POC Glucose 159 H Calcium Phosphorus 2.80 D Magnesium 2.10 Total Bilirubin AST ALT Alkaline Phosphatase Total Protein Albumin Albumin/Globulin Ratio Blood Type Antibody Screen
--- NOTE | 2019-01-28 14:51 | Progress Note ---
Assessment and Plan Acute Hypoxemic and Hypercapnic Respiratory failure requiring intubation Anemia (Normocytic) Acute Encephalopathy Cerebral palsy Fecal impaction - to OR today; will follow evelin-operatively - continue prn BIPAP support for increased work of breathing - continue aspiration precautions (HOB > 40 degrees) - continue prn supplemental oxygen for target O2 sats >90% - continue bronchodilators with pulmonary hygiene per RT - prn CXR's & ABG's at this point - continue agitation management / Pain management per CPOT (prn haldol) - continue VTE prophylaxis - continue stress ulcer prophylaxis - continue accuchecks with glycemic control for SSI (While critically ill target blood glucose of 140-180 mg/dL; avoid hypoglycemia) - Continue mobility protocol for pressure ulcer prevention - Continue to monitor hemodynamics closely - Monitor electrolyte profile closely and replete as indicated - continue chronic home medications per attending and as clinically indicated - continue other care per attending / other consultants CONDITION: FAIR PROGNOSIS: IMPROVED CODE STATUS: FULL CODE Subjective Date of service: 01/28/19 Principal diagnosis: Ac Hypoxemic and Hypercapnic Resp failure; Anemia; Cerebral palsy Interval history: Patient is seen today for: Acute Hypoxemic and Hypercapnic Respiratory failure; Anemia; Acute Encephalopathy; Cerebral palsy; Fecal impaction Seen and examined at bedside; 24hour events reviewed; nursing and respiratory care staff consulted; no adverse overnight events reported to me; resting in bed; apparently gastric content had migrated and plastic glove found in cecum; Objective Vital Signs - 12hr 01/28/19 01/28/19 01/28/19 07:38 09:17 13:03 Temperature 98.6 F Pulse Rate 94 H Pulse Rate [ 80 75 Bilateral Throughout] Respiratory 18 Rate Respiratory 16 16 Rate [Bilateral Throughout] Blood Pressure 125/78 O2 Sat by Pulse 96 97 Oximetry Constitutional: appears uncomfortable, other (elderly petite AAF, normocephalic with normal respiratory effort at rest) Eyes: non-icteric ENT: oropharynx moist Neck: supple, no lymphadenopathy, no JVD Effort: normal Ascultation: Bilateral: clear, rales, rhonchi, other (referred upper airway sounds) Percussion: Bilateral: not dull Cardiovascular: regular rate and rhythm, other (S1,S2) Gastrointestinal: normoactive bowel sounds, soft, non-tender, non-distended Integumentary: rash Extremities: no cyanosis, no edema, pulses normal, no ischemia or petechiae Neurologic: non-focal exam (grossly), pupils equal and round, other (+ cognitive defect re: cerebral Palsy) Psychiatric: anxious CBC and BMP: 01/28/19 04:13 01/28/19 04:13 ABG, PT/INR, D-dimer: ABG POC ABG pH 7.518 (7.35-7.45) H 01/20/19 16:07 POC ABG pCO2 37.5 (35-45) 01/20/19 16:07 POC ABG pO2 210 (80-105) H 01/20/19 16:07 POC ABG HCO3 30.4 (22-26 mml/L) 01/20/19 16:07 POC ABG Total CO2 32 (23-27mmol/L) 01/20/19 16:07 POC ABG O2 Sat 100 01/20/19 16:07 PT/INR, D-dimer PT 12.9 Sec. (12.2-14.9) 01/26/19 04:12 INR 0.98 (0.87-1.13) 01/26/19 04:12 D-Dimer 135.00 ng/mlDDU (0-234) 01/13/19 00:27 Abnormal lab findings: Abnormal Labs 01/13/19 01/13/19 01/13/19 00:27 00:27 00:27 WBC RBC 3.36 L Hgb Hct Plt Count Lymph % (Auto) 4.2 L [place] % (Auto) Lymph # 0.3 L Seg Neutrophils % 89.1 H Seg Neuts % (Manual) Lymphocytes % (Manual) Seg Neutrophils # Seg Neutrophils # Man Lymphocytes # (Manual) APTT POC ABG pH POC ABG pCO2 POC ABG pO2 VBG pH 7.178 L* Sodium Potassium Chloride 109.1 H Carbon Dioxide 20 L BUN 29 H Creatinine Glucose 175 H POC Glucose Lactic Acid Calcium 7.8 L Phosphorus AST ALT CK-MB (CK-2) 7.7 H CK-MB (CK-2) Rel Index 7.2 H Total Protein 6.0 L Albumin 3.3 L Ur Specific [place] 01/13/19 01/13/19 01/13/19 00:27 02:14 02:22 WBC RBC Hgb Hct Plt Count Lymph % (Auto) [place] % (Auto) Lymph # Seg Neutrophils % Seg Neuts % (Manual) Lymphocytes % (Manual) Seg Neutrophils # Seg Neutrophils # Man Lymphocytes # (Manual) APTT POC ABG pH 7.276 L POC ABG pCO2 49.4 H POC ABG pO2 156 H VBG pH Sodium Potassium Chloride Carbon Dioxide BUN Creatinine Glucose POC Glucose Lactic Acid 2.90 H* 0.30 L Calcium Phosphorus AST ALT CK-MB (CK-2) CK-MB (CK-2) Rel Index Total Protein Albumin Ur Specific [place] 01/13/19 01/13/19 01/14/19 02:22 02:34 05:13 WBC RBC 2.96 L Hgb 9.3 L Hct 27.4 L Plt Count Lymph % (Auto) [place] % (Auto) 11.9 H Lymph # Seg Neutrophils % Seg Neuts % (Manual) Lymphocytes % (Manual) Seg Neutrophils # Seg Neutrophils # Man Lymphocytes # (Manual) APTT 39.4 H POC ABG pH POC ABG pCO2 POC ABG pO2 VBG pH Sodium Potassium Chloride Carbon Dioxide BUN Creatinine Glucose POC Glucose Lactic Acid Calcium Phosphorus AST ALT CK-MB (CK-2) CK-MB (CK-2) Rel Index Total Protein Albumin Ur Specific [place] 1.051 H 01/14/19 01/14/19 01/15/19 05:13 06:06 04:31 WBC RBC Hgb Hct Plt Count Lymph % (Auto) [place] % (Auto) Lymph # Seg Neutrophils % Seg Neuts % (Manual) Lymphocytes % (Manual) Seg Neutrophils # Seg Neutrophils # Man Lymphocytes # (Manual) APTT POC ABG pH POC ABG pCO2 33.7 L POC ABG pO2 121 H 114 H VBG pH Sodium Potassium Chloride Carbon Dioxide 21 L BUN 22 H Creatinine 0.6 L Glucose 62 L POC Glucose Lactic Acid Calcium 8.0 L Phosphorus AST ALT CK-MB (CK-2) CK-MB (CK-2) Rel Index Total Protein Albumin Ur Specific [place] 01/15/19 01/15/19 01/16/19 08:51 10:07 02:56 WBC RBC Hgb Hct Plt Count Lymph % (Auto) [place] % (Auto) Lymph # Seg Neutrophils % Seg Neuts % (Manual) Lymphocytes % (Manual) Seg Neutrophils # Seg Neutrophils # Man Lymphocytes # (Manual) APTT POC ABG pH POC ABG pCO2 POC ABG pO2 VBG pH Sodium Potassium Chloride Carbon Dioxide BUN Creatinine Glucose POC Glucose < 40 L 158 H 142 H Lactic Acid Calcium Phosphorus AST ALT CK-MB (CK-2) CK-MB (CK-2) Rel Index Total Protein Albumin Ur Specific [place] 01/16/19 01/17/19 01/17/19 17:54 04:06 04:23 WBC RBC Hgb Hct Plt Count Lymph % (Auto) [place] % (Auto) Lymph # Seg Neutrophils % Seg Neuts % (Manual) Lymphocytes % (Manual) Seg Neutrophils # Seg Neutrophils # Man Lymphocytes # (Manual) APTT POC ABG pH POC ABG pCO2 33.7 L POC ABG pO2 VBG pH Sodium Potassium Chloride Carbon Dioxide BUN Creatinine Glucose POC Glucose 123 H 161 H Lactic Acid Calcium Phosphorus AST ALT CK-MB (CK-2) CK-MB (CK-2) Rel Index Total Protein Albumin Ur Specific [place] 01/17/19 01/18/19 01/19/19 11:20 04:34 11:55 WBC RBC Hgb Hct Plt Count Lymph % (Auto) [place] % (Auto) Lymph # Seg Neutrophils % Seg Neuts % (Manual) Lymphocytes % (Manual) Seg Neutrophils # Seg Neutrophils # Man Lymphocytes # (Manual) APTT POC ABG pH 7.498 H 7.484 H POC ABG pCO2 32.1 L POC ABG pO2 121 H 52 L VBG pH Sodium Potassium Chloride Carbon Dioxide BUN Creatinine Glucose POC Glucose Lactic Acid Calcium Phosphorus AST ALT CK-MB (CK-2) CK-MB (CK-2) Rel Index Total Protein Albumin Ur Specific [place] 01/19/19 01/20/19 01/20/19 23:45 06:30 13:22 WBC RBC Hgb Hct Plt Count Lymph % (Auto) [place] % (Auto) Lymph # Seg Neutrophils % Seg Neuts % (Manual) Lymphocytes % (Manual) Seg Neutrophils # Seg Neutrophils # Man Lymphocytes # (Manual) APTT POC ABG pH POC ABG pCO2 POC ABG pO2 VBG pH Sodium Potassium Chloride Carbon Dioxide BUN Creatinine Glucose POC Glucose 128 H 107 H 149 H Lactic Acid Calcium Phosphorus AST ALT CK-MB (CK-2) CK-MB (CK-2) Rel Index Total Protein Albumin Ur Specific [place] 01/20/19 01/20/19 01/20/19 16:07 18:11 22:53 WBC RBC Hgb Hct Plt Count Lymph % (Auto) [place] % (Auto) Lymph # Seg Neutrophils % Seg Neuts % (Manual) Lymphocytes % (Manual) Seg Neutrophils # Seg Neutrophils # Man Lymphocytes # (Manual) APTT POC ABG pH 7.518 H POC ABG pCO2 POC ABG pO2 210 H VBG pH Sodium Potassium Chloride Carbon Dioxide BUN Creatinine Glucose POC Glucose 139 H 166 H Lactic Acid Calcium Phosphorus AST ALT CK-MB (CK-2) CK-MB (CK-2) Rel Index Total Protein Albumin Ur Specific [place] 01/21/19 01/21/19 01/21/19 04:36 04:47 04:47 WBC RBC 2.89 L Hgb 8.9 L Hct 26.7 L Plt Count Lymph % (Auto) 13.0 L [place] % (Auto) 9.6 H Lymph # 0.7 L Seg Neutrophils % 77.0 H Seg Neuts % (Manual) Lymphocytes % (Manual) Seg Neutrophils # Seg Neutrophils # Man Lymphocytes # (Manual) APTT POC ABG pH POC ABG pCO2 POC ABG pO2 VBG pH Sodium 134 L Potassium Chloride 96.9 L Carbon Dioxide BUN 18 H Creatinine 0.4 L Glucose 138 H POC Glucose 138 H Lactic Acid Calcium 8.0 L Phosphorus AST 171 H ALT 102 H CK-MB (CK-2) CK-MB (CK-2) Rel Index Total Protein 5.6 L Albumin 2.2 L Ur Specific [place] 01/22/19 01/22/19 01/22/19 00:31 05:27 12:16 WBC RBC Hgb Hct Plt Count Lymph % (Auto) [place] % (Auto) Lymph # Seg Neutrophils % Seg Neuts % (Manual) Lymphocytes % (Manual) Seg Neutrophils # Seg Neutrophils # Man Lymphocytes # (Manual) APTT POC ABG pH POC ABG pCO2 POC ABG pO2 VBG pH Sodium Potassium Chloride Carbon Dioxide BUN Creatinine Glucose POC Glucose 113 H 106 H 113 H Lactic Acid Calcium Phosphorus AST ALT CK-MB (CK-2) CK-MB (CK-2) Rel Index Total Protein Albumin Ur Specific [place] 01/23/19 01/23/19 01/23/19 00:35 05:43 11:55 WBC RBC Hgb Hct Plt Count Lymph % (Auto) [place] % (Auto) Lymph # Seg Neutrophils % Seg Neuts % (Manual) Lymphocytes % (Manual) Seg Neutrophils # Seg Neutrophils # Man Lymphocytes # (Manual) APTT POC ABG pH POC ABG pCO2 POC ABG pO2 VBG pH Sodium Potassium Chloride Carbon Dioxide BUN Creatinine Glucose POC Glucose 120 H 139 H 119 H Lactic Acid Calcium Phosphorus AST ALT CK-MB (CK-2) CK-MB (CK-2) Rel Index Total Protein Albumin Ur Specific [place] 01/23/19 01/24/19 01/24/19 18:34 00:40 05:42 WBC RBC Hgb Hct Plt Count Lymph % (Auto) [place] % (Auto) Lymph # Seg Neutrophils % Seg Neuts % (Manual) Lymphocytes % (Manual) Seg Neutrophils # Seg Neutrophils # Man Lymphocytes # (Manual) APTT POC ABG pH POC ABG pCO2 POC ABG pO2 VBG pH Sodium Potassium Chloride Carbon Dioxide BUN Creatinine Glucose POC Glucose 146 H 136 H 119 H Lactic Acid Calcium Phosphorus AST ALT CK-MB (CK-2) CK-MB (CK-2) Rel Index Total Protein Albumin Ur Specific [place] 01/24/19 01/25/19 01/25/19 11:35 00:09 06:30 WBC RBC Hgb Hct Plt Count Lymph % (Auto) [place] % (Auto) Lymph # Seg Neutrophils % Seg Neuts % (Manual) Lymphocytes % (Manual) Seg Neutrophils # Seg Neutrophils # Man Lymphocytes # (Manual) APTT POC ABG pH POC ABG pCO2 POC ABG pO2 VBG pH Sodium Potassium Chloride Carbon Dioxide BUN Creatinine Glucose POC Glucose 117 H 119 H 127 H Lactic Acid Calcium Phosphorus AST ALT CK-MB (CK-2) CK-MB (CK-2) Rel Index Total Protein Albumin Ur Specific [place] 01/25/19 01/26/19 01/26/19 12:10 00:21 04:12 WBC RBC 3.05 L Hgb 9.3 L Hct 27.5 L Plt Count Lymph % (Auto) [place] % (Auto) 10.0 H Lymph # 0.9 L Seg Neutrophils % 73.9 H Seg Neuts % (Manual) Lymphocytes % (Manual) Seg Neutrophils # Seg Neutrophils # Man Lymphocytes # (Manual) APTT POC ABG pH POC ABG pCO2 POC ABG pO2 VBG pH Sodium Potassium Chloride Carbon Dioxide BUN Creatinine Glucose POC Glucose 109 H 125 H Lactic Acid Calcium Phosphorus AST ALT CK-MB (CK-2) CK-MB (CK-2) Rel Index Total Protein Albumin Ur Specific [place] 01/26/19 01/27/19 01/27/19 04:12 04:49 04:49 WBC RBC 3.11 L Hgb 9.5 L Hct 28.0 L Plt Count 477 H Lymph % (Auto) 7.4 L [place] % (Auto) Lymph # 0.8 L Seg Neutrophils % 87.7 H Seg Neuts % (Manual) Lymphocytes % (Manual) Seg Neutrophils # 9.0 H Seg Neutrophils # Man Lymphocytes # (Manual) APTT POC ABG pH POC ABG pCO2 POC ABG pO2 VBG pH Sodium 133 L 131 L Potassium 5.4 H D Chloride Carbon Dioxide 20 L BUN 26 H 28 H Creatinine 0.5 L 0.5 L Glucose POC Glucose Lactic Acid Calcium Phosphorus 4.60 H AST 161 H 82 H ALT 208 H 122 H CK-MB (CK-2) CK-MB (CK-2) Rel Index Total Protein 6.2 L Albumin 2.8 L 2.7 L Ur Specific [place] 01/28/19 01/28/19 01/28/19 04:13 04:13 06:14 WBC 14.9 H RBC 2.94 L Hgb 8.9 L Hct 26.5 L Plt Count 514 H Lymph % (Auto) [place] % (Auto) Lymph # Seg Neutrophils % Seg Neuts % (Manual) 93.0 H Lymphocytes % (Manual) 2.0 L Seg Neutrophils # Seg Neutrophils # Man 13.9 H Lymphocytes # (Manual) 0.3 L APTT POC ABG pH POC ABG pCO2 POC ABG pO2 VBG pH Sodium Potassium Chloride Carbon Dioxide 19 L BUN 42 H Creatinine 0.5 L Glucose 134 H POC Glucose 159 H Lactic Acid Calcium Phosphorus AST 91 H ALT 108 H CK-MB (CK-2) CK-MB (CK-2) Rel Index Total Protein 6.1 L Albumin 2.7 L Ur Specific [place] 01/28/19 12:43 WBC RBC Hgb Hct Plt Count Lymph % (Auto) [place] % (Auto) Lymph # Seg Neutrophils % Seg Neuts % (Manual) Lymphocytes % (Manual) Seg Neutrophils # Seg Neutrophils # Man Lymphocytes # (Manual) APTT POC ABG pH POC ABG pCO2 POC ABG pO2 VBG pH Sodium Potassium Chloride Carbon Dioxide BUN Creatinine Glucose POC Glucose 159 H Lactic Acid Calcium Phosphorus AST ALT CK-MB (CK-2) CK-MB (CK-2) Rel Index Total Protein Albumin Ur Specific [place] Allied health notes reviewed: nursing
[2019-01-28] MEDS ORDERED: TOTAL PARENTERAL NUTRITION 1,560 ML IV SCH (20:00)
[2019-01-28] MEDS: HALOPERIDOL 5 MG TAB PO SCH (21:24)
[2019-01-29] MEDS: QUEtiapine 200 MG TAB PO SCH ×2 (02:08→22:34)
--- NOTE | 2019-01-29 02:36 | XRay Report ---
ABDOMEN 1 VIEW(S) INDICATION / CLINICAL INFORMATION: abdominal distention, tightness. COMPARISON: None available. FINDINGS: TUBES / LINES: None. BOWEL GAS PATTERN: Moderate adynamic ileus type pattern persists. FREE AIR / EXTRALUMINAL GAS: None seen. Signer Name: Pio Castro MD Signed: 01/29/2019 2:32 AM Workstation Name: [email or web address]
--- NOTE | 2019-01-29 03:07 | Event Note ---
Date: 01/28/19 Complains of abdominal distention by nursing staff On examination--decreased bowel sounds Abdominal x-ray shows adynamic ileus Stop tube feedings for now Surgery to reassess NG tube if necessary
[2019-01-29] MEDS: IPRATROPIUM/ALBUTEROL SULFATE 3 ML AMPUL.NEB IH SCH ×4 (08:19→19:59)
--- NOTE | 2019-01-29 09:24 | Progress Note ---
Assessment and Plan - Patient Problems (1) Foreign body alimentary tract Current Visit: Yes Status: Acute Qualifiers: Encounter type: initial encounter Qualified Code(s): T18.9XXA - Foreign body of alimentary tract, part unspecified, initial encounter Plan to address problem: Pt stable. s/p foreign body removal from cecum and Gastro-Jejunal feeding tube placement - 01/27 - POD#2. No apparent complications. Reviewed notes from last night. There should be no need to place NGT as patient has a functional G-J tube. Need to make sure the G port is to LIS and flush it periodically. Will start tube feeds soon. Would try to minimize meds via G port for now. TPN - No need to hold for ileus. If there was another reason to hold it last night, that's fine. If the reason was her ileus, the TPN should be restarted until tube feeds are started and advanced to goal. Discussed with nurse. Rec: 1) May use gastric port for meds only today 2) Will begin tube feedings in the next few days. Would like to allow time for cecal incision to heal. Please call with questions. Subjective Date of service: 01/29/19 Patient Reports: Positive: other (nurse got report that patient may have been nauseated and vomited last night. ) Objective Vital Signs - 12hr 01/28/19 01/28/19 01/29/19 22:00 22:44 02:00 Temperature 99 F Pulse Rate 79 Pulse Rate [ Anterior Throughout] Pulse Rate [ Bilateral Throughout] Respiratory 18 18 Rate Respiratory Rate [Anterior Throughout] Respiratory Rate [Bilateral Throughout] Blood Pressure Blood Pressure 140/89 [Right] O2 Sat by Pulse 98 97 Oximetry 01/29/19 01/29/19 01/29/19 02:47 08:20 08:35 Temperature 99.0 F Pulse Rate 77 Pulse Rate [ 89 Anterior Throughout] Pulse Rate [ 87 Bilateral Throughout] Respiratory 18 Rate Respiratory 18 Rate [Anterior Throughout] Respiratory 18 Rate [Bilateral Throughout] Blood Pressure 140/89 Blood Pressure [Right] O2 Sat by Pulse 96 98 Oximetry - General physical appearance no distress, no pain, other (unable to communicate) - Respiratory normal expansion, normal respiratory effort - Abdomen soft, not tender, distended (unchanged), not guarding, not rigid, other (G-J tube in place) - Integumentary no rash, no growths, no abnormal pigmentation - Labs 01/28/19 04:13 01/28/19 04:13
[2019-01-29 09:39] LABS: BUN/Creatinine Ratio 153; Blood Urea Nitrogen 46 mg/dL (7-17); Calcium 8.8 mg/dL (8.4-10.2); Hemolysis Index 7
--- NOTE | 2019-01-29 10:05 | Progress Note ---
Assessment and Plan Assessment and plan: 68-year-old woman who was brought to the hospital for constipation and increasing swelling of the abdomen. Per her sister she was having trouble swallowing, she was admitted with fecal impaction. Patient has history of cerebral palsy, mental retardation and chronic constipation. 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 Will wait for cecal incision to heal prior to starting tube feeding SBO/ileus Patient had vomiting last night, she is having some SBO Keep n.p.o., G-tube to suction, rectal tube in place. Continue TPN, discussed with general surgery Ataxia/generalized weakness PT consult pending Metabolic encephalopathy : Multifactorial, supportive care. Hyperkalemia ; calcium chloride ,monitor electrolytes Respiratory failure requiring intubation/mechanical ventilator less than 96 hours Extubated , On Bipap, when necessary Saturating well on nasal cannula oxygen Transaminitis ; Monitor LFTs closely, consult GI if needed Cerebral palsy Patient has known history of cerebral palsy. Fecal impaction Resolved, stool softeners as needed. Severe malnutrition /hypoalbuminemia Nutrition supplements, dietitian following Continue tube feeding DVT prophylaxis, On Heparin SQ. Preventative health counseling performed for 17 minutes Discussed with sister, she is interested in subacute rehab. States that patient was able to walk unassisted prior to this event History Interval history: Review of systems Constitutional: No fevers, no malaise, no joint pains CVS: No chest pain, no orthopnea, no pedal edema GI: She had vomiting last night Respiratory: , no wheezing, no coughing Hospitalist Physical - Physical exam Narrative exam: General.: Appears well, no distress, nontoxic HEENT: Moist mucous membranes, extraocular muscles intact, no lymphadenopathy, poor dentition Neck: supple Cardiac: S1-S2 heard Lungs: clear to auscultation bilaterally Abdomen: soft , nontender, somewhat distended, bowel sounds positive Extremities: no edema clubbing or cyanosis Skin: no rash or lesions Neurologic: Moves all extremities, generalized weakness, mentally retarded, only able to see how you are doing, cannot answer any other questions about her well-being Psych: calm, and cooperative - Constitutional Vitals: Temp Pulse Resp BP Pulse Ox 99.0 F 89 18 140/89 98 01/29/19 02:47 01/29/19 08:35 01/29/19 08:35 01/29/19 02:47 01/29/19 08:20 General appearance: Present: no acute distress, well-nourished Results - Labs CBC & Chem 7: 01/28/19 04:13 01/29/19 08:47 Labs: Laboratory Last Values WBC 14.9 K/mm3 (4.5-11.0) H 01/28/19 04:13 RBC 2.94 M/mm3 (3.65-5.03) L 01/28/19 04:13 Hgb 8.9 gm/dl (10.1-14.3) L 01/28/19 04:13 Hct 26.5 % (30.3-42.9) L 01/28/19 04:13 MCV 90 fl (79-97) 01/28/19 04:13 MCH 30 pg (28-32) 01/28/19 04:13 MCHC 34 % (30-34) 01/28/19 04:13 RDW 13.4 % (13.2-15.2) 01/28/19 04:13 Plt Count 514 K/mm3 (140-440) H 01/28/19 04:13 Lymph % (Auto) 7.4 % (13.4-35.0) L 01/27/19 04:49 [facility] % (Auto) 4.4 % (0.0-7.3) 01/27/19 04:49 Eos % (Auto) 0.1 % (0.0-4.3) 01/27/19 04:49 Baso % (Auto) 0.4 % (0.0-1.8) 01/27/19 04:49 Lymph # 0.8 K/mm3 (1.2-5.4) L 01/27/19 04:49 [facility] # 0.4 K/mm3 (0.0-0.8) 01/27/19 04:49 Eos # 0.0 K/mm3 (0.0-0.4) 01/27/19 04:49 Baso # 0.0 K/mm3 (0.0-0.1) 01/27/19 04:49 Add Manual Diff Complete 01/28/19 04:13 Total Counted 100 01/28/19 04:13 Seg Neutrophils % Laundry Presser 01/28/19 04:13 Seg Neuts % (Manual) 93.0 % (40.0-70.0) H 01/28/19 04:13 Band Neutrophils % 2.0 % 01/28/19 04:13 Lymphocytes % (Manual) 2.0 % (13.4-35.0) L 01/28/19 04:13 Reactive Lymphs % (Man) 0 % 01/28/19 04:13 Monocytes % (Manual) 3.0 % (0.0-7.3) 01/28/19 04:13 Eosinophils % (Manual) 0 % (0.0-4.3) 01/28/19 04:13 Basophils % (Manual) 0 % (0.0-1.8) 01/28/19 04:13 Metamyelocytes % 0 % 01/28/19 04:13 Myelocytes % 0 % 01/28/19 04:13 Promyelocytes % 0 % 01/28/19 04:13 Blast Cells % 0 % 01/28/19 04:13 Nucleated RBC % Not Reportable 01/28/19 04:13 Seg Neutrophils # 9.0 K/mm3 (1.8-7.7) H 01/27/19 04:49 Seg Neutrophils # Man 13.9 K/mm3 (1.8-7.7) H 01/28/19 04:13 Band Neutrophils # 0.3 K/mm3 01/28/19 04:13 Lymphocytes # (Manual) 0.3 K/mm3 (1.2-5.4) L 01/28/19 04:13 Abs React Lymphs (Man) 0.0 K/mm3 01/28/19 04:13 Monocytes # (Manual) 0.4 K/mm3 (0.0-0.8) 01/28/19 04:13 Eosinophils # (Manual) 0.0 K/mm3 (0.0-0.4) 01/28/19 04:13 Basophils # (Manual) 0.0 K/mm3 (0.0-0.1) 01/28/19 04:13 Metamyelocytes # 0.0 K/mm3 01/28/19 04:13 Myelocytes # 0.0 K/mm3 01/28/19 04:13 Promyelocytes # 0.0 K/mm3 01/28/19 04:13 Blast Cells # 0.0 K/mm3 01/28/19 04:13 WBC Morphology Not Reportable 01/28/19 04:13 Hypersegmented Neuts Not Reportable 01/28/19 04:13 Hyposegmented Neuts Not Reportable 01/28/19 04:13 Hypogranular Neuts Not Reportable 01/28/19 04:13 Smudge Cells Not Reportable 01/28/19 04:13 Toxic Granulation Not Reportable 01/28/19 04:13 Toxic Vacuolation Not Reportable 01/28/19 04:13 Dohle Bodies Not Reportable 01/28/19 04:13 Pelger-Huet Anomaly Not Reportable 01/28/19 04:13 Shivani Rods Not Reportable 01/28/19 04:13 Platelet Estimate Consistent w auto 01/28/19 04:13 Clumped Platelets Not Reportable 01/28/19 04:13 Plt Clumps, EDTA Not Reportable 01/28/19 04:13 Large Platelets Not Reportable 01/28/19 04:13 Giant Platelets Not Reportable 01/28/19 04:13 Platelet Satelliting Not Reportable 01/28/19 04:13 Plt Morphology Comment Not Reportable 01/28/19 04:13 RBC Morphology Not Reportable 01/28/19 04:13 Dimorphic RBCs Not Reportable 01/28/19 04:13 Polychromasia Not Reportable 01/28/19 04:13 Hypochromasia Not Reportable 01/28/19 04:13 Poikilocytosis Not Reportable 01/28/19 04:13 Anisocytosis 1+ 01/28/19 04:13 Microcytosis Not Reportable 01/28/19 04:13 Macrocytosis Not Reportable 01/28/19 04:13 Spherocytes Not Reportable 01/28/19 04:13 Pappenheimer Bodies Not Reportable 01/28/19 04:13 Sickle Cells Not Reportable 01/28/19 04:13 Target Cells Not Reportable 01/28/19 04:13 Tear Drop Cells Not Reportable 01/28/19 04:13 Ovalocytes Not Reportable 01/28/19 04:13 Helmet Cells Not Reportable 01/28/19 04:13 [place] Bodies Not Reportable 01/28/19 04:13 [place] Rings Not Reportable 01/28/19 04:13 [place] Cells Not Reportable 01/28/19 04:13 Bite Cells Not Reportable 01/28/19 04:13 Crenated Cell Not Reportable 01/28/19 04:13 Elliptocytes Not Reportable 01/28/19 04:13 Acanthocytes (Spur) Not Reportable 01/28/19 04:13 Rouleaux Not Reportable 01/28/19 04:13 Hemoglobin C Crystals Not Reportable 01/28/19 04:13 Schistocytes Not Reportable 01/28/19 04:13 Malaria parasites Not Reportable 01/28/19 04:13 Sebas Bodies Not Reportable 01/28/19 04:13 Hem Pathologist Commnt No 01/28/19 04:13 PT 12.9 Sec. (12.2-14.9) 01/26/19 04:12 INR 0.98 (0.87-1.13) 01/26/19 04:12 APTT 31.9 Sec. (24.2-36.6) 01/14/19 05:13 D-Dimer 135.00 ng/mlDDU (0-234) 01/13/19 00:27 POC ABG pH 7.518 (7.35-7.45) H 01/20/19 16:07 POC ABG pCO2 37.5 (35-45) 01/20/19 16:07 POC ABG pO2 210 (80-105) H 01/20/19 16:07 POC ABG HCO3 30.4 (22-26 mml/L) 01/20/19 16:07 POC ABG Total CO2 32 (23-27mmol/L) 01/20/19 16:07 POC ABG O2 Sat 100 01/20/19 16:07 POC ABG Base Excess 8 ((-2) - (+3)mmol/L) 01/20/19 16:07 VBG pH 7.178 (7.320-7.420) L* 01/13/19 00:27 FiO2 50 % 01/20/19 16:07 Sodium 140 mmol/L (137-145) 01/29/19 08:47 Potassium 3.4 mmol/L (3.6-5.0) L 01/29/19 08:47 Chloride 103.5 mmol/L (98-107) 01/29/19 08:47 Carbon Dioxide 21 mmol/L (22-30) L 01/29/19 08:47 Anion Gap 19 mmol/L 01/29/19 08:47 BUN 46 mg/dL (7-17) H 01/29/19 08:47 Creatinine 0.3 mg/dL (0.7-1.2) L 01/29/19 08:47 Estimated GFR > 60 ml/min 01/29/19 08:47 BUN/Creatinine Ratio 153 % 01/29/19 08:47 Glucose 117 mg/dL (65-100) H 01/29/19 08:47 POC Glucose 144 (70-105) H 01/29/19 07:43 Lactic Acid 0.30 mmol/L (0.7-2.0) L 01/13/19 02:22 Calcium 8.8 mg/dL (8.4-10.2) 01/29/19 08:47 Phosphorus 2.60 mg/dL (2.5-4.5) 01/29/19 08:47 Magnesium 1.90 mg/dL (1.7-2.3) 01/29/19 08:47 Total Bilirubin 0.20 mg/dL (0.1-1.2) 01/28/19 04:13 AST 91 units/L (5-40) H 01/28/19 04:13 ALT 108 units/L (7-56) H 01/28/19 04:13 Alkaline Phosphatase 97 units/L (35-129) 01/28/19 04:13 Ammonia 25.0 umol/L (25-60) 01/13/19 00:27 Total Creatine Kinase 106 units/L (30-135) 01/13/19 00:27 CK-MB (CK-2) 7.7 ng/mL (0.0-4.0) H 01/13/19 00:27 CK-MB (CK-2) Rel Index 7.2 (0-4) H 01/13/19 00:27 Troponin T < 0.010 ng/mL (0.00-0.029) 01/13/19 00:27 NT-Pro-B Natriuret Pep 52.36 pg/mL (0-900) 01/13/19 00:27 Total Protein 6.1 g/dL (6.3-8.2) L 01/28/19 04:13 Albumin 2.7 g/dL (3.9-5) L 01/28/19 04:13 Albumin/Globulin Ratio 0.8 % 01/28/19 04:13 Urine Color Yellow (Yellow) 01/13/19 02:34 Urine Turbidity Slightly-cloudy (Clear) 01/13/19 02:34 Urine pH 5.0 (5.0-7.0) 01/13/19 02:34 Ur Specific [place] 1.051 (1.003-1.030) H 01/13/19 02:34 Urine Protein <15 mg/dl mg/dL (Negative) 01/13/19 02:34 Urine Glucose (UA) 50 mg/dL (Negative) 01/13/19 02:34 Urine Ketones Neg mg/dL (Negative) 01/13/19 02:34 Urine Blood Neg (Negative) 01/13/19 02:34 Urine Nitrite Neg (Negative) 01/13/19 02:34 Urine Bilirubin Neg (Negative) 01/13/19 02:34 Urine Urobilinogen < 2.0 mg/dL (<2.0) 01/13/19 02:34 Ur Leukocyte Esterase Neg (Negative) 01/13/19 02:34 Urine WBC (Auto) < 1.0 /HPF (0.0-6.0) 01/13/19 02:34 Urine RBC (Auto) < 1.0 /HPF (0.0-6.0) 01/13/19 02:34 U Epithel Cells (Auto) < 1.0 /HPF (0-13.0) 01/13/19 02:34 Urine Bacteria (Auto) 1+ /HPF (Negative) 01/13/19 02:34 Urine Mucus 1+ /HPF 01/13/19 02:34 Blood Type O POSITIVE 01/27/19 16:00 Antibody Screen Negative 01/27/19 16:00 Active Medications - Current Medications Current Medications: Generic Name Dose Route Start Last Admin Trade Name Freq PRN Reason Stop Dose Admin Acetaminophen 650 mg 01/13/19 04:55 Tylenol MO Q6H PRN Pain MILD(1-3)/Fever >100.5/WOOD Albuterol/Ipratropium 1 ampul 01/22/19 14:00 01/29/19 08:19 Duoneb *Not For Prn Use* IH 1 ampul Q6HRT JOAN Administration Lipase/Protease/Amylase 1 each 01/19/19 13:12 Pancrenicolasa Schwartz 10,500 Unit FEEDTUBE PRN PRN For Clogged Feeding Tube Bisacodyl 10 mg 01/13/19 04:55 01/16/19 11:30 Dulcolax MO 10 mg QDAY PRN Administration constipation unrelieved by MOM Dextrose 25 ml 01/15/19 08:51 01/15/19 09:00 D50w (25gm) Syringe IV 25 ml Q30MIN PRN Administration Hypoglycemia Protocol Haloperidol 5 mg 01/15/19 22:00 01/28/19 21:24 Haldol PO 5 mg QHS JOAN Administration Heparin Sodium (Porcine) 5,000 unit 01/15/19 22:00 01/28/19 21:25 Heparin SUB-Q 5,000 unit Q12HR JOAN Administration Hydralazine HCl 10 mg 01/18/19 18:48 01/18/19 19:36 Apresoline IV 10 mg Q3HR PRN Administration SBP >/=160 Hydrophilic Ointment 1 applic 01/12/19 23:54 Vaseline Lip Therapy TP Q2HR PRN Dry Lips Ketorolac Tromethamine 15 mg 01/26/19 15:32 01/27/19 10:54 Toradol IV 01/31/19 15:31 15 mg Q6H PRN Administration Pain, Mild (1-3) Lorazepam 1 mg 01/20/19 22:00 01/28/19 23:51 Ativan PO 1 mg BID JOAN Administration Multi-Ingred Cream/Lotion/Oil/Oint 1 applic 01/12/19 23:54 Artificial Tears Ophth Oint OU Q4HR PRN Dry Eye(s) Ondansetron HCl 4 mg 01/13/19 04:55 Zofran IV Q8H PRN Nausea And Vomiting Quetiapine Fumarate 400 mg 01/22/19 22:00 01/29/19 02:08 Seroquel PO Not Given QHS JOAN Simple Syrup 15 ml 01/19/19 13:12 Simple Syrup FEEDTUBE PRN PRN Hypoglycemia Simple Syrup 30 ml 01/19/19 13:12 Simple Syrup FEEDTUBE PRN PRN Hypoglycemia Sodium Bicarbonate 325 mg 01/19/19 13:12 Sodium Bicarbonate FEEDTUBE PRN PRN For Clogged Feeding Tube Sodium Chloride 10 ml 01/13/19 10:00 01/28/19 21:24 Sodium Chloride Flush Syringe 10 Ml IV 10 ml BID JOAN Administration Sodium Chloride 10 ml 01/13/19 04:55 01/26/19 17:15 Sodium Chloride Flush Syringe 10 Ml IV 10 ml PRN PRN Administration LINE FLUSH Nutrition/Malnutrition Assess - Dietary Evaluation Nutrition/Malnutrition Findings: Nutrition Notes Start: 01/13/19 12:10 Freq: Status: Active Protocol: Document 01/28/19 10:31 LM (Rec: 01/28/19 10:42 LM [email or web address]) Nutrition Notes Initial or Follow up Reassessment Current Diagnosis Respiratory Failure Other Pertinent Diagnosis Cerebral palsy, Seizure, fecal impaction, dehydration Current Diet PPN at 65 ml/hr Labs/Tests BUN 42 Cr 0.5 BG 134 Pertinent Medications Reviewed Height 5 ft 2 in Weight 38 kg [place] Body Weight (kg) 50.00 BMI 15.3 Weight Status Underweight Subjective/Other Information PPN day 2. Family member in room at time of visit. Family member stated that pt was able to eat fine [employer] but had wt loss that began 4 months ago. Family was not aware of what caused the wt loss but stated pt would walk a lot. Pt with severe muscle and fat wasting. Percent of energy/protein needs met: 33%/100% Burn Absent Trauma Absent GI Symptoms None Difficulty In Swallowing,Chewing Current % PO Negligible Minimum of two criteria Yes Interpretation of Weight Loss (non- 7.5% in 3 months severe) Body Fat Depletion Moderate depletion (severe) Muscle Mass Moderate Depletion (severe) #2 Nutrition Diagnosis Malnutrition Etiology cerebral palsy, chronic illness, dysphagia As Evidenced by Signs and Symptoms pt with with severe muscle and fat wasting, wt loss, and BMI 15.3 #1 Nutrition Diagnosis Inadequate oral intake Diagnosis Progress(for reassessment Continues documentation) Is patient on ventilator? No Is Patient Ambulatory and/or Out of Bed No REE-([place]-confined to bed) 1041.972 Kcal/Kg value to use for calculation 42 Approximate Energy Requirements Using 1596 kcal/Kg Calculation Used for Recommendations Kcal/kg Additional Notes PRO: 38-46g/day (1.0-1.2g/kg) Fluid: 1 ml/kcal Nutrition Intervention Change Diet Order: Continue PPN Nutrition Support: PPN at 65 ml/hr: 7.4% dextrose , 20 mEq K, 4 mEq Mg, 10 mmol phos, MVI, thiamine; 899 mOsm Kcal 575 Protein (gm) 46 Carbohydrates (gm) 115 Fat (gm) 0 Fluid (mL) 1,560 Goal #1 Meet needs as best as possible via PPN Anticipated Discharge Needs: Unable to determine at this time Follow-Up By: 01/29/19 Additional Comments Labs in AM: BMP, Mg, Phos
[2019-01-29] MEDS: LORazepam 1 MG TAB PO SCH ×2 (10:11→22:35)
[2019-01-29] MEDS: HEPARIN 5,000 UNIT/1 ML VIAL SUB-Q SCH ×2 (10:11→22:34)
--- NOTE | 2019-01-29 17:56 | Progress Note ---
Assessment and Plan Patient awake. Not following commands. Patient confused and moaning and groning. Patient is on 2 litres O2. O2 saturation 98%. No acute respiratory distress. - Patient Problems (1) Respiratory failure requiring intubation Current Visit: Yes Status: Acute Plan to address problem: Patient intubated and extubated presently resting on 2 l of O2. [id number] running at 98% (2) Cerebral palsy Current Visit: Yes Status: Acute Plan to address problem: Aspiration precautions management as per primary care (3) Constipation Current Visit: Yes Status: Acute Plan to address problem: Management as per primary care team (4) Ileus Current Visit: Yes Status: Acute Plan to address problem: Management as per primary care team Subjective Date of service: 01/29/19 Principal diagnosis: Ac Hypoxemic and Hypercapnic Resp failure; Anemia; Cerebral palsy Interval history: Patient awake. Not following commands. Patient confused and moaning and groning. Patient is on 2 litres O2. O2 saturation 98%. No acute respiratory distress. Objective Vital Signs - 12hr 01/29/19 01/29/19 01/29/19 08:20 08:35 13:34 Temperature 97.9 F Pulse Rate 80 Pulse Rate [ 89 Anterior Throughout] Pulse Rate [ 87 Bilateral Throughout] Respiratory 20 Rate Respiratory 18 Rate [Anterior Throughout] Respiratory 18 Rate [Bilateral Throughout] Blood Pressure 143/82 Blood Pressure [Right] O2 Sat by Pulse 98 99 Oximetry 01/29/19 01/29/19 13:51 14:48 Temperature Pulse Rate Pulse Rate [ Anterior Throughout] Pulse Rate [ 76 Bilateral Throughout] Respiratory Rate Respiratory Rate [Anterior Throughout] Respiratory 20 Rate [Bilateral Throughout] Blood Pressure Blood Pressure 143/82 [Right] O2 Sat by Pulse Oximetry Constitutional: no acute distress, alert, appears uncomfortable, other (elderly petite AAF, normocephalic with normal respiratory effort at rest) Eyes: non-icteric ENT: oropharynx moist Neck: supple, no lymphadenopathy, no JVD Effort: normal Ascultation: Bilateral: rales, rhonchi, other (referred upper airway sounds) Percussion: Bilateral: not dull Cardiovascular: regular rate and rhythm, other (S1,S2) Gastrointestinal: normoactive bowel sounds, soft, non-tender, non-distended Integumentary: rash Extremities: no cyanosis, no edema, pulses normal, no ischemia or petechiae Neurologic: non-focal exam (grossly), pupils equal and round, other (+ cognitive defect re: cerebral Palsy) Psychiatric: anxious CBC and BMP: 01/28/19 04:13 01/29/19 08:47 ABG, PT/INR, D-dimer: ABG POC ABG pH 7.518 (7.35-7.45) H 01/20/19 16:07 POC ABG pCO2 37.5 (35-45) 01/20/19 16:07 POC ABG pO2 210 (80-105) H 01/20/19 16:07 POC ABG HCO3 30.4 (22-26 mml/L) 01/20/19 16:07 POC ABG Total CO2 32 (23-27mmol/L) 01/20/19 16:07 POC ABG O2 Sat 100 01/20/19 16:07 PT/INR, D-dimer PT 12.9 Sec. (12.2-14.9) 01/26/19 04:12 INR 0.98 (0.87-1.13) 01/26/19 04:12 D-Dimer 135.00 ng/mlDDU (0-234) 01/13/19 00:27 Abnormal lab findings: Abnormal Labs 01/13/19 01/13/19 01/13/19 00:27 00:27 00:27 WBC RBC 3.36 L Hgb Hct Plt Count Lymph % (Auto) 4.2 L [place] % (Auto) Lymph # 0.3 L Seg Neutrophils % 89.1 H Seg Neuts % (Manual) Lymphocytes % (Manual) Seg Neutrophils # Seg Neutrophils # Man Lymphocytes # (Manual) APTT POC ABG pH POC ABG pCO2 POC ABG pO2 VBG pH 7.178 L* Sodium Potassium Chloride 109.1 H Carbon Dioxide 20 L BUN 29 H Creatinine Glucose 175 H POC Glucose Lactic Acid Calcium 7.8 L Phosphorus AST ALT CK-MB (CK-2) 7.7 H CK-MB (CK-2) Rel Index 7.2 H Total Protein 6.0 L Albumin 3.3 L Ur Specific [place] 01/13/19 01/13/19 01/13/19 00:27 02:14 02:22 WBC RBC Hgb Hct Plt Count Lymph % (Auto) [place] % (Auto) Lymph # Seg Neutrophils % Seg Neuts % (Manual) Lymphocytes % (Manual) Seg Neutrophils # Seg Neutrophils # Man Lymphocytes # (Manual) APTT POC ABG pH 7.276 L POC ABG pCO2 49.4 H POC ABG pO2 156 H VBG pH Sodium Potassium Chloride Carbon Dioxide BUN Creatinine Glucose POC Glucose Lactic Acid 2.90 H* 0.30 L Calcium Phosphorus AST ALT CK-MB (CK-2) CK-MB (CK-2) Rel Index Total Protein Albumin Ur Specific [place] 01/13/19 01/13/19 01/14/19 02:22 02:34 05:13 WBC RBC 2.96 L Hgb 9.3 L Hct 27.4 L Plt Count Lymph % (Auto) [place] % (Auto) 11.9 H Lymph # Seg Neutrophils % Seg Neuts % (Manual) Lymphocytes % (Manual) Seg Neutrophils # Seg Neutrophils # Man Lymphocytes # (Manual) APTT 39.4 H POC ABG pH POC ABG pCO2 POC ABG pO2 VBG pH Sodium Potassium Chloride Carbon Dioxide BUN Creatinine Glucose POC Glucose Lactic Acid Calcium Phosphorus AST ALT CK-MB (CK-2) CK-MB (CK-2) Rel Index Total Protein Albumin Ur Specific [place] 1.051 H 01/14/19 01/14/19 01/15/19 05:13 06:06 04:31 WBC RBC Hgb Hct Plt Count Lymph % (Auto) [place] % (Auto) Lymph # Seg Neutrophils % Seg Neuts % (Manual) Lymphocytes % (Manual) Seg Neutrophils # Seg Neutrophils # Man Lymphocytes # (Manual) APTT POC ABG pH POC ABG pCO2 33.7 L POC ABG pO2 121 H 114 H VBG pH Sodium Potassium Chloride Carbon Dioxide 21 L BUN 22 H Creatinine 0.6 L Glucose 62 L POC Glucose Lactic Acid Calcium 8.0 L Phosphorus AST ALT CK-MB (CK-2) CK-MB (CK-2) Rel Index Total Protein Albumin Ur Specific [place] 01/15/19 01/15/19 01/16/19 08:51 10:07 02:56 WBC RBC Hgb Hct Plt Count Lymph % (Auto) [place] % (Auto) Lymph # Seg Neutrophils % Seg Neuts % (Manual) Lymphocytes % (Manual) Seg Neutrophils # Seg Neutrophils # Man Lymphocytes # (Manual) APTT POC ABG pH POC ABG pCO2 POC ABG pO2 VBG pH Sodium Potassium Chloride Carbon Dioxide BUN Creatinine Glucose POC Glucose < 40 L 158 H 142 H Lactic Acid Calcium Phosphorus AST ALT CK-MB (CK-2) CK-MB (CK-2) Rel Index Total Protein Albumin Ur Specific [place] 01/16/19 01/17/19 01/17/19 17:54 04:06 04:23 WBC RBC Hgb Hct Plt Count Lymph % (Auto) [place] % (Auto) Lymph # Seg Neutrophils % Seg Neuts % (Manual) Lymphocytes % (Manual) Seg Neutrophils # Seg Neutrophils # Man Lymphocytes # (Manual) APTT POC ABG pH POC ABG pCO2 33.7 L POC ABG pO2 VBG pH Sodium Potassium Chloride Carbon Dioxide BUN Creatinine Glucose POC Glucose 123 H 161 H Lactic Acid Calcium Phosphorus AST ALT CK-MB (CK-2) CK-MB (CK-2) Rel Index Total Protein Albumin Ur Specific [place] 01/17/19 01/18/19 01/19/19 11:20 04:34 11:55 WBC RBC Hgb Hct Plt Count Lymph % (Auto) [place] % (Auto) Lymph # Seg Neutrophils % Seg Neuts % (Manual) Lymphocytes % (Manual) Seg Neutrophils # Seg Neutrophils # Man Lymphocytes # (Manual) APTT POC ABG pH 7.498 H 7.484 H POC ABG pCO2 32.1 L POC ABG pO2 121 H 52 L VBG pH Sodium Potassium Chloride Carbon Dioxide BUN Creatinine Glucose POC Glucose Lactic Acid Calcium Phosphorus AST ALT CK-MB (CK-2) CK-MB (CK-2) Rel Index Total Protein Albumin Ur Specific [place] 01/19/19 01/20/19 01/20/19 23:45 06:30 13:22 WBC RBC Hgb Hct Plt Count Lymph % (Auto) [place] % (Auto) Lymph # Seg Neutrophils % Seg Neuts % (Manual) Lymphocytes % (Manual) Seg Neutrophils # Seg Neutrophils # Man Lymphocytes # (Manual) APTT POC ABG pH POC ABG pCO2 POC ABG pO2 VBG pH Sodium Potassium Chloride Carbon Dioxide BUN Creatinine Glucose POC Glucose 128 H 107 H 149 H Lactic Acid Calcium Phosphorus AST ALT CK-MB (CK-2) CK-MB (CK-2) Rel Index Total Protein Albumin Ur Specific [place] 01/20/19 01/20/19 01/20/19 16:07 18:11 22:53 WBC RBC Hgb Hct Plt Count Lymph % (Auto) [place] % (Auto) Lymph # Seg Neutrophils % Seg Neuts % (Manual) Lymphocytes % (Manual) Seg Neutrophils # Seg Neutrophils # Man Lymphocytes # (Manual) APTT POC ABG pH 7.518 H POC ABG pCO2 POC ABG pO2 210 H VBG pH Sodium Potassium Chloride Carbon Dioxide BUN Creatinine Glucose POC Glucose 139 H 166 H Lactic Acid Calcium Phosphorus AST ALT CK-MB (CK-2) CK-MB (CK-2) Rel Index Total Protein Albumin Ur Specific [place] 01/21/19 01/21/19 01/21/19 04:36 04:47 04:47 WBC RBC 2.89 L Hgb 8.9 L Hct 26.7 L Plt Count Lymph % (Auto) 13.0 L [place] % (Auto) 9.6 H Lymph # 0.7 L Seg Neutrophils % 77.0 H Seg Neuts % (Manual) Lymphocytes % (Manual) Seg Neutrophils # Seg Neutrophils # Man Lymphocytes # (Manual) APTT POC ABG pH POC ABG pCO2 POC ABG pO2 VBG pH Sodium 134 L Potassium Chloride 96.9 L Carbon Dioxide BUN 18 H Creatinine 0.4 L Glucose 138 H POC Glucose 138 H Lactic Acid Calcium 8.0 L Phosphorus AST 171 H ALT 102 H CK-MB (CK-2) CK-MB (CK-2) Rel Index Total Protein 5.6 L Albumin 2.2 L Ur Specific [place] 01/22/19 01/22/19 01/22/19 00:31 05:27 12:16 WBC RBC Hgb Hct Plt Count Lymph % (Auto) [place] % (Auto) Lymph # Seg Neutrophils % Seg Neuts % (Manual) Lymphocytes % (Manual) Seg Neutrophils # Seg Neutrophils # Man Lymphocytes # (Manual) APTT POC ABG pH POC ABG pCO2 POC ABG pO2 VBG pH Sodium Potassium Chloride Carbon Dioxide BUN Creatinine Glucose POC Glucose 113 H 106 H 113 H Lactic Acid Calcium Phosphorus AST ALT CK-MB (CK-2) CK-MB (CK-2) Rel Index Total Protein Albumin Ur Specific [place] 01/23/19 01/23/19 01/23/19 00:35 05:43 11:55 WBC RBC Hgb Hct Plt Count Lymph % (Auto) [place] % (Auto) Lymph # Seg Neutrophils % Seg Neuts % (Manual) Lymphocytes % (Manual) Seg Neutrophils # Seg Neutrophils # Man Lymphocytes # (Manual) APTT POC ABG pH POC ABG pCO2 POC ABG pO2 VBG pH Sodium Potassium Chloride Carbon Dioxide BUN Creatinine Glucose POC Glucose 120 H 139 H 119 H Lactic Acid Calcium Phosphorus AST ALT CK-MB (CK-2) CK-MB (CK-2) Rel Index Total Protein Albumin Ur Specific [place] 01/23/19 01/24/19 01/24/19 18:34 00:40 05:42 WBC RBC Hgb Hct Plt Count Lymph % (Auto) [place] % (Auto) Lymph # Seg Neutrophils % Seg Neuts % (Manual) Lymphocytes % (Manual) Seg Neutrophils # Seg Neutrophils # Man Lymphocytes # (Manual) APTT POC ABG pH POC ABG pCO2 POC ABG pO2 VBG pH Sodium Potassium Chloride Carbon Dioxide BUN Creatinine Glucose POC Glucose 146 H 136 H 119 H Lactic Acid Calcium Phosphorus AST ALT CK-MB (CK-2) CK-MB (CK-2) Rel Index Total Protein Albumin Ur Specific [place] 01/24/19 01/25/19 01/25/19 11:35 00:09 06:30 WBC RBC Hgb Hct Plt Count Lymph % (Auto) [place] % (Auto) Lymph # Seg Neutrophils % Seg Neuts % (Manual) Lymphocytes % (Manual) Seg Neutrophils # Seg Neutrophils # Man Lymphocytes # (Manual) APTT POC ABG pH POC ABG pCO2 POC ABG pO2 VBG pH Sodium Potassium Chloride Carbon Dioxide BUN Creatinine Glucose POC Glucose 117 H 119 H 127 H Lactic Acid Calcium Phosphorus AST ALT CK-MB (CK-2) CK-MB (CK-2) Rel Index Total Protein Albumin Ur Specific [place] 01/25/19 01/26/19 01/26/19 12:10 00:21 04:12 WBC RBC 3.05 L Hgb 9.3 L Hct 27.5 L Plt Count Lymph % (Auto) [place] % (Auto) 10.0 H Lymph # 0.9 L Seg Neutrophils % 73.9 H Seg Neuts % (Manual) Lymphocytes % (Manual) Seg Neutrophils # Seg Neutrophils # Man Lymphocytes # (Manual) APTT POC ABG pH POC ABG pCO2 POC ABG pO2 VBG pH Sodium Potassium Chloride Carbon Dioxide BUN Creatinine Glucose POC Glucose 109 H 125 H Lactic Acid Calcium Phosphorus AST ALT CK-MB (CK-2) CK-MB (CK-2) Rel Index Total Protein Albumin Ur Specific [place] 01/26/19 01/27/19 01/27/19 04:12 04:49 04:49 WBC RBC 3.11 L Hgb 9.5 L Hct 28.0 L Plt Count 477 H Lymph % (Auto) 7.4 L [place] % (Auto) Lymph # 0.8 L Seg Neutrophils % 87.7 H Seg Neuts % (Manual) Lymphocytes % (Manual) Seg Neutrophils # 9.0 H Seg Neutrophils # Man Lymphocytes # (Manual) APTT POC ABG pH POC ABG pCO2 POC ABG pO2 VBG pH Sodium 133 L 131 L Potassium 5.4 H D Chloride Carbon Dioxide 20 L BUN 26 H 28 H Creatinine 0.5 L 0.5 L Glucose POC Glucose Lactic Acid Calcium Phosphorus 4.60 H AST 161 H 82 H ALT 208 H 122 H CK-MB (CK-2) CK-MB (CK-2) Rel Index Total Protein 6.2 L Albumin 2.8 L 2.7 L Ur Specific [place] 01/28/19 01/28/19 01/28/19 04:13 04:13 06:14 WBC 14.9 H RBC 2.94 L Hgb 8.9 L Hct 26.5 L Plt Count 514 H Lymph % (Auto) [place] % (Auto) Lymph # Seg Neutrophils % Seg Neuts % (Manual) 93.0 H Lymphocytes % (Manual) 2.0 L Seg Neutrophils # Seg Neutrophils # Man 13.9 H Lymphocytes # (Manual) 0.3 L APTT POC ABG pH POC ABG pCO2 POC ABG pO2 VBG pH Sodium Potassium Chloride Carbon Dioxide 19 L BUN 42 H Creatinine 0.5 L Glucose 134 H POC Glucose 159 H Lactic Acid Calcium Phosphorus AST 91 H ALT 108 H CK-MB (CK-2) CK-MB (CK-2) Rel Index Total Protein 6.1 L Albumin 2.7 L Ur Specific [place] 01/28/19 01/28/19 01/29/19 12:43 17:49 00:13 WBC RBC Hgb Hct Plt Count Lymph % (Auto) [place] % (Auto) Lymph # Seg Neutrophils % Seg Neuts % (Manual) Lymphocytes % (Manual) Seg Neutrophils # Seg Neutrophils # Man Lymphocytes # (Manual) APTT POC ABG pH POC ABG pCO2 POC ABG pO2 VBG pH Sodium Potassium Chloride Carbon Dioxide BUN Creatinine Glucose POC Glucose 159 H 151 H 148 H Lactic Acid Calcium Phosphorus AST ALT CK-MB (CK-2) CK-MB (CK-2) Rel Index Total Protein Albumin Ur Specific [place] 01/29/19 01/29/19 01/29/19 07:00 07:43 08:47 WBC RBC Hgb Hct Plt Count Lymph % (Auto) [place] % (Auto) Lymph # Seg Neutrophils % Seg Neuts % (Manual) Lymphocytes % (Manual) Seg Neutrophils # Seg Neutrophils # Man Lymphocytes # (Manual) APTT POC ABG pH POC ABG pCO2 POC ABG pO2 VBG pH Sodium Potassium 3.4 L Chloride Carbon Dioxide 21 L BUN 46 H Creatinine 0.3 L Glucose 117 H POC Glucose 130 H 144 H Lactic Acid Calcium Phosphorus AST ALT CK-MB (CK-2) CK-MB (CK-2) Rel Index Total Protein Albumin Ur Specific [place] 01/29/19 01/29/19 11:31 16:21 WBC RBC Hgb Hct Plt Count Lymph % (Auto) [place] % (Auto) Lymph # Seg Neutrophils % Seg Neuts % (Manual) Lymphocytes % (Manual) Seg Neutrophils # Seg Neutrophils # Man Lymphocytes # (Manual) APTT POC ABG pH POC ABG pCO2 POC ABG pO2 VBG pH Sodium Potassium Chloride Carbon Dioxide BUN Creatinine Glucose POC Glucose 133 H 138 H Lactic Acid Calcium Phosphorus AST ALT CK-MB (CK-2) CK-MB (CK-2) Rel Index Total Protein Albumin Ur Specific [place] Allied health notes reviewed: nursing
[2019-01-29] MEDS ORDERED: TOTAL PARENTERAL NUTRITION 1,800 ML IV SCH (20:00)
[2019-01-29] MEDS: HALOPERIDOL 5 MG TAB PO SCH (22:34)
[2019-01-30 04:58] LABS: BUN/Creatinine Ratio 113; Blood Urea Nitrogen 34 mg/dL (7-17); Calcium 8.5 mg/dL (8.4-10.2); Hemolysis Index 7
[2019-01-30] MEDS: IPRATROPIUM/ALBUTEROL SULFATE 3 ML AMPUL.NEB IH SCH ×4 (05:42→20:28)
--- NOTE | 2019-01-30 08:43 | Progress Note ---
Assessment and Plan - Patient Problems (1) Foreign body alimentary tract Current Visit: Yes Status: Acute Qualifiers: Encounter type: initial encounter Qualified Code(s): T18.9XXA - Foreign body of alimentary tract, part unspecified, initial encounter Plan to address problem: Pt stable. s/p foreign body removal from cecum and Gastro-Jejunal feeding tube placement - 01/27 - POD#3. No apparent complications. Suction found on continuous setting. Shown to nurse. Needs to be low intermittent suction. Drainage appearance is improving. Will most likely start trickle feeds through jejunal tube tomorrow. Discussed with nurse. Rec: 1) May use gastric port for meds only today. Must otherwise be on Low Intermittent Suction 2) Will probably begin trickle tube feeds tomorrow. Please call with questions. Subjective Date of service: 01/30/19 Patient Reports: Positive: no new complaints (per staff) Objective Vital Signs - 12hr 01/29/19 01/30/19 01/30/19 22:00 01:28 01:30 Temperature 98.8 F Pulse Rate 92 H Respiratory 20 Rate Blood Pressure Blood Pressure 142/91 [Right] O2 Sat by Pulse 96 97 Oximetry 01/30/19 07:25 Temperature 98.2 F Pulse Rate 102 H Respiratory 20 Rate Blood Pressure 116/79 Blood Pressure [Right] O2 Sat by Pulse 100 Oximetry - General physical appearance no distress, no pain, other (resting comfortably) - Respiratory normal expansion, normal respiratory effort - Abdomen soft, bowel sounds hypoactive, distended (mild), other (G-J tube in place. ) - Labs 01/28/19 04:13 01/30/19 04:13 Diabetes panel 01/29/19 01/30/19 Range/Units 08:47 04:13 Sodium 140 141 (137-145) mmol/L Potassium 3.4 L 3.3 L (3.6-5.0) mmol/L Chloride 103.5 102.5 (98-107) mmol/L Carbon Dioxide 21 L 29 D (22-30) mmol/L BUN 46 H 34 H (7-17) mg/dL Creatinine 0.3 L 0.3 L (0.7-1.2) mg/dL Glucose 117 H 156 H (65-100) mg/dL Calcium 8.8 8.5 (8.4-10.2) mg/dL Calcium panel 01/29/19 01/30/19 Range/Units 08:47 04:13 Calcium 8.8 8.5 (8.4-10.2) mg/dL Phosphorus 2.60 3.20 D (2.5-4.5) mg/dL Pituitary panel 01/29/19 01/30/19 Range/Units 08:47 04:13 Sodium 140 141 (137-145) mmol/L Potassium 3.4 L 3.3 L (3.6-5.0) mmol/L Chloride 103.5 102.5 (98-107) mmol/L Carbon Dioxide 21 L 29 D (22-30) mmol/L BUN 46 H 34 H (7-17) mg/dL Creatinine 0.3 L 0.3 L (0.7-1.2) mg/dL Glucose 117 H 156 H (65-100) mg/dL Calcium 8.8 8.5 (8.4-10.2) mg/dL Adrenal panel 01/29/19 01/30/19 Range/Units 08:47 04:13 Sodium 140 141 (137-145) mmol/L Potassium 3.4 L 3.3 L (3.6-5.0) mmol/L Chloride 103.5 102.5 (98-107) mmol/L Carbon Dioxide 21 L 29 D (22-30) mmol/L BUN 46 H 34 H (7-17) mg/dL Creatinine 0.3 L 0.3 L (0.7-1.2) mg/dL Glucose 117 H 156 H (65-100) mg/dL Calcium 8.8 8.5 (8.4-10.2) mg/dL
[2019-01-30] MEDS: LORazepam 1 MG TAB PO SCH ×2 (09:18→22:53)
[2019-01-30] MEDS: HEPARIN 5,000 UNIT/1 ML VIAL SUB-Q SCH ×2 (09:18→22:52)
--- NOTE | 2019-01-30 15:11 | Progress Note ---
Assessment and Plan Assessment and plan: Patient is a 68-year-old woman with a history of history of cerebral palsy, mental retardation, unspecified mental disorder and chronic constipation who was brought to the hospital for constipation and increasing swelling of the abdomen. 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 Will wait for cecal incision to heal prior to starting tube feeding SBO/ileus Patient had vomiting last night, she is having some SBO Keep n.p.o., G-tube to suction, rectal tube in place. Continue TPN, discussed with general surgery Ataxia/generalized weakness PT consult pending Metabolic encephalopathy : Multifactorial, supportive care. Hyperkalemia ; calcium chloride ,monitor electrolytes Respiratory failure requiring intubation/mechanical ventilator less than 96 hours Extubated , On Bipap, when necessary Saturating well on nasal cannula oxygen Transaminitis ; Monitor LFTs closely, consult GI if needed Cerebral palsy Patient has known history of cerebral palsy. Fecal impaction Resolved, stool softeners as needed. Severe malnutrition /hypoalbuminemia Nutrition supplements, dietitian following Continue tube feeding DVT prophylaxis, On Heparin SQ. subacute rehab. States that patient was able to walk unassisted prior to this event History Interval history: Patient was seen and examined. Follow-up on current diagnosis. No overnight events reported to me. Not cooperative today. Nonverbal. Imaging, nursing note, chart, labs and old chart reviewed. Hospitalist Physical - Physical exam Narrative exam: Gen: cachetic, bmi 15.3, nonverbal CVS/Heart: Regular tachycardia, normal S1S2, pulses present bilaterally Chest/Lungs: Symmetrical chest expansion, good air entry bilaterally GI/Abdomen: soft, binder in place /Bladder: no suprapubic tenderness, no CVA or paraspinal tenderness Extermity/Skin: atrophic limbs MSK: contracted limbs Neuro: CN 2-12 grossly intact, doesn't follow commands Psych: calm but confused - Constitutional Vitals: Temp Pulse Resp BP Pulse Ox 98.8 F 99 H 20 136/87 100 01/30/19 13:12 01/30/19 13:12 01/30/19 13:12 01/30/19 13:12 01/30/19 13:12 General appearance: Present: no acute distress. Absent: well-nourished Results - Labs CBC & Chem 7: 01/28/19 04:13 01/31/19 05:16 Labs: Laboratory Last Values WBC 14.9 K/mm3 (4.5-11.0) H 01/28/19 04:13 RBC 2.94 M/mm3 (3.65-5.03) L 01/28/19 04:13 Hgb 8.9 gm/dl (10.1-14.3) L 01/28/19 04:13 Hct 26.5 % (30.3-42.9) L 01/28/19 04:13 MCV 90 fl (79-97) 01/28/19 04:13 MCH 30 pg (28-32) 01/28/19 04:13 MCHC 34 % (30-34) 01/28/19 04:13 RDW 13.4 % (13.2-15.2) 01/28/19 04:13 Plt Count 514 K/mm3 (140-440) H 01/28/19 04:13 Lymph % (Auto) 7.4 % (13.4-35.0) L 01/27/19 04:49 [place] % (Auto) 4.4 % (0.0-7.3) 01/27/19 04:49 Eos % (Auto) 0.1 % (0.0-4.3) 01/27/19 04:49 Baso % (Auto) 0.4 % (0.0-1.8) 01/27/19 04:49 Lymph # 0.8 K/mm3 (1.2-5.4) L 01/27/19 04:49 [place] # 0.4 K/mm3 (0.0-0.8) 01/27/19 04:49 Eos # 0.0 K/mm3 (0.0-0.4) 01/27/19 04:49 Baso # 0.0 K/mm3 (0.0-0.1) 01/27/19 04:49 Add Manual Diff Complete 01/28/19 04:13 Total Counted 100 01/28/19 04:13 Seg Neutrophils % Mud Mixer 01/28/19 04:13 Seg Neuts % (Manual) 93.0 % (40.0-70.0) H 01/28/19 04:13 Band Neutrophils % 2.0 % 01/28/19 04:13 Lymphocytes % (Manual) 2.0 % (13.4-35.0) L 01/28/19 04:13 Reactive Lymphs % (Man) 0 % 01/28/19 04:13 Monocytes % (Manual) 3.0 % (0.0-7.3) 01/28/19 04:13 Eosinophils % (Manual) 0 % (0.0-4.3) 01/28/19 04:13 Basophils % (Manual) 0 % (0.0-1.8) 01/28/19 04:13 Metamyelocytes % 0 % 01/28/19 04:13 Myelocytes % 0 % 01/28/19 04:13 Promyelocytes % 0 % 01/28/19 04:13 Blast Cells % 0 % 01/28/19 04:13 Nucleated RBC % Not Reportable 01/28/19 04:13 Seg Neutrophils # 9.0 K/mm3 (1.8-7.7) H 01/27/19 04:49 Seg Neutrophils # Man 13.9 K/mm3 (1.8-7.7) H 01/28/19 04:13 Band Neutrophils # 0.3 K/mm3 01/28/19 04:13 Lymphocytes # (Manual) 0.3 K/mm3 (1.2-5.4) L 01/28/19 04:13 Abs React Lymphs (Man) 0.0 K/mm3 01/28/19 04:13 Monocytes # (Manual) 0.4 K/mm3 (0.0-0.8) 01/28/19 04:13 Eosinophils # (Manual) 0.0 K/mm3 (0.0-0.4) 01/28/19 04:13 Basophils # (Manual) 0.0 K/mm3 (0.0-0.1) 01/28/19 04:13 Metamyelocytes # 0.0 K/mm3 01/28/19 04:13 Myelocytes # 0.0 K/mm3 01/28/19 04:13 Promyelocytes # 0.0 K/mm3 01/28/19 04:13 Blast Cells # 0.0 K/mm3 01/28/19 04:13 WBC Morphology Not Reportable 01/28/19 04:13 Hypersegmented Neuts Not Reportable 01/28/19 04:13 Hyposegmented Neuts Not Reportable 01/28/19 04:13 Hypogranular Neuts Not Reportable 01/28/19 04:13 Smudge Cells Not Reportable 01/28/19 04:13 Toxic Granulation Not Reportable 01/28/19 04:13 Toxic Vacuolation Not Reportable 01/28/19 04:13 Dohle Bodies Not Reportable 01/28/19 04:13 Pelger-Huet Anomaly Not Reportable 01/28/19 04:13 Shivani Rods Not Reportable 01/28/19 04:13 Platelet Estimate Consistent w auto 01/28/19 04:13 Clumped Platelets Not Reportable 01/28/19 04:13 Plt Clumps, EDTA Not Reportable 01/28/19 04:13 Large Platelets Not Reportable 01/28/19 04:13 Giant Platelets Not Reportable 01/28/19 04:13 Platelet Satelliting Not Reportable 01/28/19 04:13 Plt Morphology Comment Not Reportable 01/28/19 04:13 RBC Morphology Not Reportable 01/28/19 04:13 Dimorphic RBCs Not Reportable 01/28/19 04:13 Polychromasia Not Reportable 01/28/19 04:13 Hypochromasia Not Reportable 01/28/19 04:13 Poikilocytosis Not Reportable 01/28/19 04:13 Anisocytosis 1+ 01/28/19 04:13 Microcytosis Not Reportable 01/28/19 04:13 Macrocytosis Not Reportable 01/28/19 04:13 Spherocytes Not Reportable 01/28/19 04:13 Pappenheimer Bodies Not Reportable 01/28/19 04:13 Sickle Cells Not Reportable 01/28/19 04:13 Target Cells Not Reportable 01/28/19 04:13 Tear Drop Cells Not Reportable 01/28/19 04:13 Ovalocytes Not Reportable 01/28/19 04:13 Helmet Cells Not Reportable 01/28/19 04:13 [place] Bodies Not Reportable 01/28/19 04:13 [place] Rings Not Reportable 01/28/19 04:13 [place] Cells Not Reportable 01/28/19 04:13 Bite Cells Not Reportable 01/28/19 04:13 Crenated Cell Not Reportable 01/28/19 04:13 Elliptocytes Not Reportable 01/28/19 04:13 Acanthocytes (Spur) Not Reportable 01/28/19 04:13 Rouleaux Not Reportable 01/28/19 04:13 Hemoglobin C Crystals Not Reportable 01/28/19 04:13 Schistocytes Not Reportable 01/28/19 04:13 Malaria parasites Not Reportable 01/28/19 04:13 Sebas Bodies Not Reportable 01/28/19 04:13 Hem Pathologist Commnt No 01/28/19 04:13 PT 12.9 Sec. (12.2-14.9) 01/26/19 04:12 INR 0.98 (0.87-1.13) 01/26/19 04:12 APTT 31.9 Sec. (24.2-36.6) 01/14/19 05:13 D-Dimer 135.00 ng/mlDDU (0-234) 01/13/19 00:27 POC ABG pH 7.518 (7.35-7.45) H 01/20/19 16:07 POC ABG pCO2 37.5 (35-45) 01/20/19 16:07 POC ABG pO2 210 (80-105) H 01/20/19 16:07 POC ABG HCO3 30.4 (22-26 mml/L) 01/20/19 16:07 POC ABG Total CO2 32 (23-27mmol/L) 01/20/19 16:07 POC ABG O2 Sat 100 01/20/19 16:07 POC ABG Base Excess 8 ((-2) - (+3)mmol/L) 01/20/19 16:07 VBG pH 7.178 (7.320-7.420) L* 01/13/19 00:27 FiO2 50 % 01/20/19 16:07 Sodium 141 mmol/L (137-145) 01/30/19 04:13 Potassium 3.3 mmol/L (3.6-5.0) L 01/30/19 04:13 Chloride 102.5 mmol/L (98-107) 01/30/19 04:13 Carbon Dioxide 29 mmol/L (22-30) D 01/30/19 04:13 Anion Gap 13 mmol/L 01/30/19 04:13 BUN 34 mg/dL (7-17) H 01/30/19 04:13 Creatinine 0.3 mg/dL (0.7-1.2) L 01/30/19 04:13 Estimated GFR > 60 ml/min 01/30/19 04:13 BUN/Creatinine Ratio 113 % 01/30/19 04:13 Glucose 156 mg/dL (65-100) H 01/30/19 04:13 POC Glucose 134 (70-105) H 01/30/19 12:36 Lactic Acid 0.30 mmol/L (0.7-2.0) L 01/13/19 02:22 Calcium 8.5 mg/dL (8.4-10.2) 01/30/19 04:13 Phosphorus 3.20 mg/dL (2.5-4.5) D 01/30/19 04:13 Magnesium 2.00 mg/dL (1.7-2.3) 01/30/19 04:13 Total Bilirubin 0.20 mg/dL (0.1-1.2) 01/28/19 04:13 AST 91 units/L (5-40) H 01/28/19 04:13 ALT 108 units/L (7-56) H 01/28/19 04:13 Alkaline Phosphatase 97 units/L (35-129) 01/28/19 04:13 Ammonia 25.0 umol/L (25-60) 01/13/19 00:27 Total Creatine Kinase 106 units/L (30-135) 01/13/19 00:27 CK-MB (CK-2) 7.7 ng/mL (0.0-4.0) H 01/13/19 00:27 CK-MB (CK-2) Rel Index 7.2 (0-4) H 01/13/19 00:27 Troponin T < 0.010 ng/mL (0.00-0.029) 01/13/19 00:27 NT-Pro-B Natriuret Pep 52.36 pg/mL (0-900) 01/13/19 00:27 Total Protein 6.1 g/dL (6.3-8.2) L 01/28/19 04:13 Albumin 2.7 g/dL (3.9-5) L 01/28/19 04:13 Albumin/Globulin Ratio 0.8 % 01/28/19 04:13 Urine Color Yellow (Yellow) 01/13/19 02:34 Urine Turbidity Slightly-cloudy (Clear) 01/13/19 02:34 Urine pH 5.0 (5.0-7.0) 01/13/19 02:34 Ur Specific [place] 1.051 (1.003-1.030) H 01/13/19 02:34 Urine Protein <15 mg/dl mg/dL (Negative) 01/13/19 02:34 Urine Glucose (UA) 50 mg/dL (Negative) 01/13/19 02:34 Urine Ketones Neg mg/dL (Negative) 01/13/19 02:34 Urine Blood Neg (Negative) 01/13/19 02:34 Urine Nitrite Neg (Negative) 01/13/19 02:34 Urine Bilirubin Neg (Negative) 01/13/19 02:34 Urine Urobilinogen < 2.0 mg/dL (<2.0) 01/13/19 02:34 Ur Leukocyte Esterase Neg (Negative) 01/13/19 02:34 Urine WBC (Auto) < 1.0 /HPF (0.0-6.0) 01/13/19 02:34 Urine RBC (Auto) < 1.0 /HPF (0.0-6.0) 01/13/19 02:34 U Epithel Cells (Auto) < 1.0 /HPF (0-13.0) 01/13/19 02:34 Urine Bacteria (Auto) 1+ /HPF (Negative) 01/13/19 02:34 Urine Mucus 1+ /HPF 01/13/19 02:34 Blood Type O POSITIVE 01/27/19 16:00 Antibody Screen Negative 01/27/19 16:00 Active Medications - Current Medications Current Medications: Generic Name Dose Route Start Last Admin Trade Name Freq PRN Reason Stop Dose Admin Acetaminophen 650 mg 01/13/19 04:55 Tylenol MS Q6H PRN Pain MILD(1-3)/Fever >100.5/WOOD Albuterol/Ipratropium 1 ampul 01/22/19 14:00 01/30/19 05:42 Duoneb *Not For Prn Use* IH Not Given Q6HRT JOAN Lipase/Protease/Amylase 1 each 01/19/19 13:12 Pancrenicolasa Schwartz 10,500 Unit FEEDTUBE PRN PRN For Clogged Feeding Tube Bisacodyl 10 mg 01/13/19 04:55 01/16/19 11:30 Dulcolax MS 10 mg QDAY PRN Administration constipation unrelieved by MOM Dextrose 25 ml 01/15/19 08:51 01/15/19 09:00 D50w (25gm) Syringe IV 25 ml Q30MIN PRN Administration Hypoglycemia Protocol Haloperidol 5 mg 01/15/19 22:00 01/29/19 22:34 Haldol PO 5 mg QHS JOAN Administration Heparin Sodium (Porcine) 5,000 unit 01/15/19 22:00 01/30/19 09:18 Heparin SUB-Q 5,000 unit Q12HR JOAN Administration Hydralazine HCl 10 mg 01/18/19 18:48 01/18/19 19:36 Apresoline IV 10 mg Q3HR PRN Administration SBP >/=160 Hydrophilic Ointment 1 applic 01/12/19 23:54 Vaseline Lip Therapy TP Q2HR PRN Dry Lips Amino Acids/Electrolytes/Dextrose 1,800 mls @ 75 mls/hr 01/29/19 20:00 01/29/19 20:43 Tpn Adult IV 01/30/19 19:59 75 mls/hr DAILY@1999 JOAN Administration Protocol Amino Acids/Electrolytes/Dextrose 1,800 mls @ 75 mls/hr 01/30/19 20:00 Tpn Adult IV 01/31/19 19:59 DAILY@1999 JOAN Protocol Ketorolac Tromethamine 15 mg 01/26/19 15:32 01/27/19 10:54 Toradol IV 01/31/19 15:31 15 mg Q6H PRN Administration Pain, Mild (1-3) Lorazepam 1 mg 01/20/19 22:00 01/30/19 09:18 Ativan PO 1 mg BID JOAN Administration Multi-Ingred Cream/Lotion/Oil/Oint 1 applic 01/12/19 23:54 Artificial Tears Ophth Oint OU Q4HR PRN Dry Eye(s) Ondansetron HCl 4 mg 01/13/19 04:55 Zofran IV Q8H PRN Nausea And Vomiting Quetiapine Fumarate 400 mg 01/22/19 22:00 01/29/19 22:34 Seroquel PO 400 mg QHS JOAN Administration Simple Syrup 15 ml 01/19/19 13:12 Simple Syrup FEEDTUBE PRN PRN Hypoglycemia Simple Syrup 30 ml 01/19/19 13:12 Simple Syrup FEEDTUBE PRN PRN Hypoglycemia Sodium Bicarbonate 325 mg 01/19/19 13:12 Sodium Bicarbonate FEEDTUBE PRN PRN For Clogged Feeding Tube Sodium Chloride 10 ml 01/13/19 10:00 01/30/19 09:18 Sodium Chloride Flush Syringe 10 Ml IV 10 ml BID JOAN Administration Sodium Chloride 10 ml 01/13/19 04:55 01/26/19 17:15 Sodium Chloride Flush Syringe 10 Ml IV 10 ml PRN PRN Administration LINE FLUSH Nutrition/Malnutrition Assess - Dietary Evaluation Nutrition/Malnutrition Findings: Nutrition Notes Start: 01/13/19 12:10 Freq: Status: Active Protocol: Document 01/30/19 10:35 ANGELIKA (Rec: 01/30/19 11:27 ANGELIKA [id number]) Co-Sign 01/30/19 10:35 LP Nutrition Notes Initial or Follow up Reassessment Current Diagnosis Respiratory Failure Other Pertinent Diagnosis Cerebral palsy, Seizure, fecal impaction, dehydration Current Diet PPN at 75 ml/hr Labs/Tests BUN 34 Cr 0.3 K 3.3 BG 156 Pertinent Medications Reviewed Height 5 ft 2 in Weight 38 kg [place] Body Weight (kg) 50.00 BMI 15.3 Weight Status Underweight Subjective/Other Information PPN day 4. PEG has been placed and may start trickle feed tomorrow per chart. Percent of energy/protein needs met: 41%/100% Burn Absent Trauma Absent GI Symptoms None Current % PO Negligible Minimum of two criteria Yes Interpretation of Weight Loss (non- 7.5% in 3 months severe) Body Fat Depletion Moderate depletion (severe) Muscle Mass Moderate Depletion (severe) #2 Nutrition Diagnosis Malnutrition Diagnosis Progress(for reassessment Continues documentation) #1 Nutrition Diagnosis Inadequate oral intake Diagnosis Progress(for reassessment Continues documentation) Is patient on ventilator? No Is Patient Ambulatory and/or Out of Bed No [facility] 1041.972 Kcal/Kg value to use for calculation 42 Approximate Energy Requirements Using 1596 kcal/Kg Calculation Used for Recommendations Kcal/kg Additional Notes PRO: 46-57g/day (1.2-1.5g/kg) Fluid: 1 ml/kcal Nutrition Intervention Change Diet Order: Continue PPN and start TF when medically feasible Nutrition Support: PPN at 75 ml/hr: 80 mEq K, MVI , MTE Kcal 653 Protein (gm) 57 Carbohydrates (gm) 125 Fat (gm) 0 Fluid (mL) 1,800 Goal #1 Meet needs as best as possible via PPN Goal #2 Start TF when medically feasible Anticipated Discharge Needs: TF Follow-Up By: 01/31/19 Additional Comments Labs in AM: BMP, Mg, Phos
--- NOTE | 2019-01-30 18:07 | Progress Note ---
Assessment and Plan Patient sleeping. Patient bruxing her teeth. Patient is on 2 litres O2. O2 saturation 100%. No acute respiratory distress. - Patient Problems (1) Respiratory failure requiring intubation Current Visit: Yes Status: Acute Plan to address problem: Patient intubated and extubated presently on 2 l of O2. [id number] running at 100% (2) Cerebral palsy Current Visit: Yes Status: Acute Plan to address problem: Aspiration precautions management as per primary care (3) Constipation Current Visit: Yes Status: Acute Plan to address problem: Management as per primary care team (4) Ileus Current Visit: Yes Status: Acute Plan to address problem: Management as per primary care team Subjective Date of service: 01/30/19 Principal diagnosis: Ac Hypoxemic and Hypercapnic Resp failure; Anemia; Cerebral palsy Interval history: Patient sleeping. Patient bruxing her teeth. Patient is on 2 litres O2. O2 saturation 100%. No acute respiratory distress. Objective Vital Signs - 12hr 01/30/19 01/30/19 01/30/19 07:25 08:00 10:00 Temperature 98.2 F Pulse Rate 102 H Pulse Rate [ 98 H Anterior Throughout] Pulse Rate [ 96 H Bilateral Throughout] Respiratory 20 17 Rate Respiratory 17 Rate [Anterior Throughout] Respiratory 17 Rate [Bilateral Throughout] Blood Pressure 116/79 O2 Sat by Pulse 100 98 Oximetry 01/30/19 01/30/19 13:12 14:00 Temperature 98.8 F Pulse Rate 99 H Pulse Rate [ Anterior Throughout] Pulse Rate [ 94 H Bilateral Throughout] Respiratory 20 Rate Respiratory Rate [Anterior Throughout] Respiratory 18 Rate [Bilateral Throughout] Blood Pressure 136/87 O2 Sat by Pulse 100 Oximetry Constitutional: no acute distress, alert, appears uncomfortable, other (elderly petite AAF, normocephalic with normal respiratory effort at rest) Eyes: non-icteric ENT: oropharynx moist Neck: supple, no lymphadenopathy, no JVD Effort: normal Ascultation: Bilateral: rales, rhonchi, other (referred upper airway sounds) Percussion: Bilateral: not dull Cardiovascular: regular rate and rhythm, other (S1,S2) Gastrointestinal: normoactive bowel sounds, soft, non-tender, non-distended Integumentary: rash Extremities: no cyanosis, no edema, pulses normal, no ischemia or petechiae Neurologic: non-focal exam (grossly), pupils equal and round, other (+ cognitive defect re: cerebral Palsy) Psychiatric: anxious CBC and BMP: 01/28/19 04:13 01/30/19 04:13 ABG, PT/INR, D-dimer: ABG POC ABG pH 7.518 (7.35-7.45) H 01/20/19 16:07 POC ABG pCO2 37.5 (35-45) 01/20/19 16:07 POC ABG pO2 210 (80-105) H 01/20/19 16:07 POC ABG HCO3 30.4 (22-26 mml/L) 01/20/19 16:07 POC ABG Total CO2 32 (23-27mmol/L) 01/20/19 16:07 POC ABG O2 Sat 100 01/20/19 16:07 PT/INR, D-dimer PT 12.9 Sec. (12.2-14.9) 01/26/19 04:12 INR 0.98 (0.87-1.13) 01/26/19 04:12 D-Dimer 135.00 ng/mlDDU (0-234) 01/13/19 00:27 Abnormal lab findings: Abnormal Labs 01/13/19 01/13/19 01/13/19 00:27 00:27 00:27 WBC RBC 3.36 L Hgb Hct Plt Count Lymph % (Auto) 4.2 L [place] % (Auto) Lymph # 0.3 L Seg Neutrophils % 89.1 H Seg Neuts % (Manual) Lymphocytes % (Manual) Seg Neutrophils # Seg Neutrophils # Man Lymphocytes # (Manual) APTT POC ABG pH POC ABG pCO2 POC ABG pO2 VBG pH 7.178 L* Sodium Potassium Chloride 109.1 H Carbon Dioxide 20 L BUN 29 H Creatinine Glucose 175 H POC Glucose Lactic Acid Calcium 7.8 L Phosphorus AST ALT CK-MB (CK-2) 7.7 H CK-MB (CK-2) Rel Index 7.2 H Total Protein 6.0 L Albumin 3.3 L Ur Specific [place] 01/13/19 01/13/19 01/13/19 00:27 02:14 02:22 WBC RBC Hgb Hct Plt Count Lymph % (Auto) [place] % (Auto) Lymph # Seg Neutrophils % Seg Neuts % (Manual) Lymphocytes % (Manual) Seg Neutrophils # Seg Neutrophils # Man Lymphocytes # (Manual) APTT POC ABG pH 7.276 L POC ABG pCO2 49.4 H POC ABG pO2 156 H VBG pH Sodium Potassium Chloride Carbon Dioxide BUN Creatinine Glucose POC Glucose Lactic Acid 2.90 H* 0.30 L Calcium Phosphorus AST ALT CK-MB (CK-2) CK-MB (CK-2) Rel Index Total Protein Albumin Ur Specific [place] 01/13/19 01/13/19 01/14/19 02:22 02:34 05:13 WBC RBC 2.96 L Hgb 9.3 L Hct 27.4 L Plt Count Lymph % (Auto) [place] % (Auto) 11.9 H Lymph # Seg Neutrophils % Seg Neuts % (Manual) Lymphocytes % (Manual) Seg Neutrophils # Seg Neutrophils # Man Lymphocytes # (Manual) APTT 39.4 H POC ABG pH POC ABG pCO2 POC ABG pO2 VBG pH Sodium Potassium Chloride Carbon Dioxide BUN Creatinine Glucose POC Glucose Lactic Acid Calcium Phosphorus AST ALT CK-MB (CK-2) CK-MB (CK-2) Rel Index Total Protein Albumin Ur Specific [place] 1.051 H 01/14/19 01/14/19 01/15/19 05:13 06:06 04:31 WBC RBC Hgb Hct Plt Count Lymph % (Auto) [place] % (Auto) Lymph # Seg Neutrophils % Seg Neuts % (Manual) Lymphocytes % (Manual) Seg Neutrophils # Seg Neutrophils # Man Lymphocytes # (Manual) APTT POC ABG pH POC ABG pCO2 33.7 L POC ABG pO2 121 H 114 H VBG pH Sodium Potassium Chloride Carbon Dioxide 21 L BUN 22 H Creatinine 0.6 L Glucose 62 L POC Glucose Lactic Acid Calcium 8.0 L Phosphorus AST ALT CK-MB (CK-2) CK-MB (CK-2) Rel Index Total Protein Albumin Ur Specific [place] 01/15/19 01/15/19 01/16/19 08:51 10:07 02:56 WBC RBC Hgb Hct Plt Count Lymph % (Auto) [place] % (Auto) Lymph # Seg Neutrophils % Seg Neuts % (Manual) Lymphocytes % (Manual) Seg Neutrophils # Seg Neutrophils # Man Lymphocytes # (Manual) APTT POC ABG pH POC ABG pCO2 POC ABG pO2 VBG pH Sodium Potassium Chloride Carbon Dioxide BUN Creatinine Glucose POC Glucose < 40 L 158 H 142 H Lactic Acid Calcium Phosphorus AST ALT CK-MB (CK-2) CK-MB (CK-2) Rel Index Total Protein Albumin Ur Specific [place] 01/16/19 01/17/19 01/17/19 17:54 04:06 04:23 WBC RBC Hgb Hct Plt Count Lymph % (Auto) [place] % (Auto) Lymph # Seg Neutrophils % Seg Neuts % (Manual) Lymphocytes % (Manual) Seg Neutrophils # Seg Neutrophils # Man Lymphocytes # (Manual) APTT POC ABG pH POC ABG pCO2 33.7 L POC ABG pO2 VBG pH Sodium Potassium Chloride Carbon Dioxide BUN Creatinine Glucose POC Glucose 123 H 161 H Lactic Acid Calcium Phosphorus AST ALT CK-MB (CK-2) CK-MB (CK-2) Rel Index Total Protein Albumin Ur Specific [place] 01/17/19 01/18/19 01/19/19 11:20 04:34 11:55 WBC RBC Hgb Hct Plt Count Lymph % (Auto) [place] % (Auto) Lymph # Seg Neutrophils % Seg Neuts % (Manual) Lymphocytes % (Manual) Seg Neutrophils # Seg Neutrophils # Man Lymphocytes # (Manual) APTT POC ABG pH 7.498 H 7.484 H POC ABG pCO2 32.1 L POC ABG pO2 121 H 52 L VBG pH Sodium Potassium Chloride Carbon Dioxide BUN Creatinine Glucose POC Glucose Lactic Acid Calcium Phosphorus AST ALT CK-MB (CK-2) CK-MB (CK-2) Rel Index Total Protein Albumin Ur Specific [place] 01/19/19 01/20/19 01/20/19 23:45 06:30 13:22 WBC RBC Hgb Hct Plt Count Lymph % (Auto) [place] % (Auto) Lymph # Seg Neutrophils % Seg Neuts % (Manual) Lymphocytes % (Manual) Seg Neutrophils # Seg Neutrophils # Man Lymphocytes # (Manual) APTT POC ABG pH POC ABG pCO2 POC ABG pO2 VBG pH Sodium Potassium Chloride Carbon Dioxide BUN Creatinine Glucose POC Glucose 128 H 107 H 149 H Lactic Acid Calcium Phosphorus AST ALT CK-MB (CK-2) CK-MB (CK-2) Rel Index Total Protein Albumin Ur Specific [place] 01/20/19 01/20/19 01/20/19 16:07 18:11 22:53 WBC RBC Hgb Hct Plt Count Lymph % (Auto) [place] % (Auto) Lymph # Seg Neutrophils % Seg Neuts % (Manual) Lymphocytes % (Manual) Seg Neutrophils # Seg Neutrophils # Man Lymphocytes # (Manual) APTT POC ABG pH 7.518 H POC ABG pCO2 POC ABG pO2 210 H VBG pH Sodium Potassium Chloride Carbon Dioxide BUN Creatinine Glucose POC Glucose 139 H 166 H Lactic Acid Calcium Phosphorus AST ALT CK-MB (CK-2) CK-MB (CK-2) Rel Index Total Protein Albumin Ur Specific [place] 01/21/19 01/21/19 01/21/19 04:36 04:47 04:47 WBC RBC 2.89 L Hgb 8.9 L Hct 26.7 L Plt Count Lymph % (Auto) 13.0 L [place] % (Auto) 9.6 H Lymph # 0.7 L Seg Neutrophils % 77.0 H Seg Neuts % (Manual) Lymphocytes % (Manual) Seg Neutrophils # Seg Neutrophils # Man Lymphocytes # (Manual) APTT POC ABG pH POC ABG pCO2 POC ABG pO2 VBG pH Sodium 134 L Potassium Chloride 96.9 L Carbon Dioxide BUN 18 H Creatinine 0.4 L Glucose 138 H POC Glucose 138 H Lactic Acid Calcium 8.0 L Phosphorus AST 171 H ALT 102 H CK-MB (CK-2) CK-MB (CK-2) Rel Index Total Protein 5.6 L Albumin 2.2 L Ur Specific [place] 01/22/19 01/22/19 01/22/19 00:31 05:27 12:16 WBC RBC Hgb Hct Plt Count Lymph % (Auto) [place] % (Auto) Lymph # Seg Neutrophils % Seg Neuts % (Manual) Lymphocytes % (Manual) Seg Neutrophils # Seg Neutrophils # Man Lymphocytes # (Manual) APTT POC ABG pH POC ABG pCO2 POC ABG pO2 VBG pH Sodium Potassium Chloride Carbon Dioxide BUN Creatinine Glucose POC Glucose 113 H 106 H 113 H Lactic Acid Calcium Phosphorus AST ALT CK-MB (CK-2) CK-MB (CK-2) Rel Index Total Protein Albumin Ur Specific [place] 01/23/19 01/23/19 01/23/19 00:35 05:43 11:55 WBC RBC Hgb Hct Plt Count Lymph % (Auto) [place] % (Auto) Lymph # Seg Neutrophils % Seg Neuts % (Manual) Lymphocytes % (Manual) Seg Neutrophils # Seg Neutrophils # Man Lymphocytes # (Manual) APTT POC ABG pH POC ABG pCO2 POC ABG pO2 VBG pH Sodium Potassium Chloride Carbon Dioxide BUN Creatinine Glucose POC Glucose 120 H 139 H 119 H Lactic Acid Calcium Phosphorus AST ALT CK-MB (CK-2) CK-MB (CK-2) Rel Index Total Protein Albumin Ur Specific [place] 01/23/19 01/24/19 01/24/19 18:34 00:40 05:42 WBC RBC Hgb Hct Plt Count Lymph % (Auto) [place] % (Auto) Lymph # Seg Neutrophils % Seg Neuts % (Manual) Lymphocytes % (Manual) Seg Neutrophils # Seg Neutrophils # Man Lymphocytes # (Manual) APTT POC ABG pH POC ABG pCO2 POC ABG pO2 VBG pH Sodium Potassium Chloride Carbon Dioxide BUN Creatinine Glucose POC Glucose 146 H 136 H 119 H Lactic Acid Calcium Phosphorus AST ALT CK-MB (CK-2) CK-MB (CK-2) Rel Index Total Protein Albumin Ur Specific [place] 01/24/19 01/25/19 01/25/19 11:35 00:09 06:30 WBC RBC Hgb Hct Plt Count Lymph % (Auto) [place] % (Auto) Lymph # Seg Neutrophils % Seg Neuts % (Manual) Lymphocytes % (Manual) Seg Neutrophils # Seg Neutrophils # Man Lymphocytes # (Manual) APTT POC ABG pH POC ABG pCO2 POC ABG pO2 VBG pH Sodium Potassium Chloride Carbon Dioxide BUN Creatinine Glucose POC Glucose 117 H 119 H 127 H Lactic Acid Calcium Phosphorus AST ALT CK-MB (CK-2) CK-MB (CK-2) Rel Index Total Protein Albumin Ur Specific [place] 01/25/19 01/26/19 01/26/19 12:10 00:21 04:12 WBC RBC 3.05 L Hgb 9.3 L Hct 27.5 L Plt Count Lymph % (Auto) [place] % (Auto) 10.0 H Lymph # 0.9 L Seg Neutrophils % 73.9 H Seg Neuts % (Manual) Lymphocytes % (Manual) Seg Neutrophils # Seg Neutrophils # Man Lymphocytes # (Manual) APTT POC ABG pH POC ABG pCO2 POC ABG pO2 VBG pH Sodium Potassium Chloride Carbon Dioxide BUN Creatinine Glucose POC Glucose 109 H 125 H Lactic Acid Calcium Phosphorus AST ALT CK-MB (CK-2) CK-MB (CK-2) Rel Index Total Protein Albumin Ur Specific [place] 01/26/19 01/27/19 01/27/19 04:12 04:49 04:49 WBC RBC 3.11 L Hgb 9.5 L Hct 28.0 L Plt Count 477 H Lymph % (Auto) 7.4 L [place] % (Auto) Lymph # 0.8 L Seg Neutrophils % 87.7 H Seg Neuts % (Manual) Lymphocytes % (Manual) Seg Neutrophils # 9.0 H Seg Neutrophils # Man Lymphocytes # (Manual) APTT POC ABG pH POC ABG pCO2 POC ABG pO2 VBG pH Sodium 133 L 131 L Potassium 5.4 H D Chloride Carbon Dioxide 20 L BUN 26 H 28 H Creatinine 0.5 L 0.5 L Glucose POC Glucose Lactic Acid Calcium Phosphorus 4.60 H AST 161 H 82 H ALT 208 H 122 H CK-MB (CK-2) CK-MB (CK-2) Rel Index Total Protein 6.2 L Albumin 2.8 L 2.7 L Ur Specific [place] 01/28/19 01/28/19 01/28/19 04:13 04:13 06:14 WBC 14.9 H RBC 2.94 L Hgb 8.9 L Hct 26.5 L Plt Count 514 H Lymph % (Auto) [place] % (Auto) Lymph # Seg Neutrophils % Seg Neuts % (Manual) 93.0 H Lymphocytes % (Manual) 2.0 L Seg Neutrophils # Seg Neutrophils # Man 13.9 H Lymphocytes # (Manual) 0.3 L APTT POC ABG pH POC ABG pCO2 POC ABG pO2 VBG pH Sodium Potassium Chloride Carbon Dioxide 19 L BUN 42 H Creatinine 0.5 L Glucose 134 H POC Glucose 159 H Lactic Acid Calcium Phosphorus AST 91 H ALT 108 H CK-MB (CK-2) CK-MB (CK-2) Rel Index Total Protein 6.1 L Albumin 2.7 L Ur Specific [place] 01/28/19 01/28/19 01/29/19 12:43 17:49 00:13 WBC RBC Hgb Hct Plt Count Lymph % (Auto) [place] % (Auto) Lymph # Seg Neutrophils % Seg Neuts % (Manual) Lymphocytes % (Manual) Seg Neutrophils # Seg Neutrophils # Man Lymphocytes # (Manual) APTT POC ABG pH POC ABG pCO2 POC ABG pO2 VBG pH Sodium Potassium Chloride Carbon Dioxide BUN Creatinine Glucose POC Glucose 159 H 151 H 148 H Lactic Acid Calcium Phosphorus AST ALT CK-MB (CK-2) CK-MB (CK-2) Rel Index Total Protein Albumin Ur Specific [place] 01/29/19 01/29/19 01/29/19 07:00 07:43 08:47 WBC RBC Hgb Hct Plt Count Lymph % (Auto) [place] % (Auto) Lymph # Seg Neutrophils % Seg Neuts % (Manual) Lymphocytes % (Manual) Seg Neutrophils # Seg Neutrophils # Man Lymphocytes # (Manual) APTT POC ABG pH POC ABG pCO2 POC ABG pO2 VBG pH Sodium Potassium 3.4 L Chloride Carbon Dioxide 21 L BUN 46 H Creatinine 0.3 L Glucose 117 H POC Glucose 130 H 144 H Lactic Acid Calcium Phosphorus AST ALT CK-MB (CK-2) CK-MB (CK-2) Rel Index Total Protein Albumin Ur Specific [place] 01/29/19 01/29/19 01/30/19 11:31 16:21 00:33 WBC RBC Hgb Hct Plt Count Lymph % (Auto) [place] % (Auto) Lymph # Seg Neutrophils % Seg Neuts % (Manual) Lymphocytes % (Manual) Seg Neutrophils # Seg Neutrophils # Man Lymphocytes # (Manual) APTT POC ABG pH POC ABG pCO2 POC ABG pO2 VBG pH Sodium Potassium Chloride Carbon Dioxide BUN Creatinine Glucose POC Glucose 133 H 138 H 159 H Lactic Acid Calcium Phosphorus AST ALT CK-MB (CK-2) CK-MB (CK-2) Rel Index Total Protein Albumin Ur Specific [place] 01/30/19 01/30/19 01/30/19 04:13 06:04 07:34 WBC RBC Hgb Hct Plt Count Lymph % (Auto) [place] % (Auto) Lymph # Seg Neutrophils % Seg Neuts % (Manual) Lymphocytes % (Manual) Seg Neutrophils # Seg Neutrophils # Man Lymphocytes # (Manual) APTT POC ABG pH POC ABG pCO2 POC ABG pO2 VBG pH Sodium Potassium 3.3 L Chloride Carbon Dioxide BUN 34 H Creatinine 0.3 L Glucose 156 H POC Glucose 136 H 130 H Lactic Acid Calcium Phosphorus AST ALT CK-MB (CK-2) CK-MB (CK-2) Rel Index Total Protein Albumin Ur Specific [place] 01/30/19 12:36 WBC RBC Hgb Hct Plt Count Lymph % (Auto) [place] % (Auto) Lymph # Seg Neutrophils % Seg Neuts % (Manual) Lymphocytes % (Manual) Seg Neutrophils # Seg Neutrophils # Man Lymphocytes # (Manual) APTT POC ABG pH POC ABG pCO2 POC ABG pO2 VBG pH Sodium Potassium Chloride Carbon Dioxide BUN Creatinine Glucose POC Glucose 134 H Lactic Acid Calcium Phosphorus AST ALT CK-MB (CK-2) CK-MB (CK-2) Rel Index Total Protein Albumin Ur Specific [place] Allied health notes reviewed: nursing
[2019-01-30] MEDS ORDERED: TOTAL PARENTERAL NUTRITION 1,800 ML IV SCH (20:00)
[2019-01-30] MEDS: HALOPERIDOL 5 MG TAB PO SCH (22:52)
[2019-01-30] MEDS: QUEtiapine 200 MG TAB PO SCH (22:53)
[2019-01-31] MEDS: IPRATROPIUM/ALBUTEROL SULFATE 3 ML AMPUL.NEB IH SCH ×4 (03:29→20:56)
[2019-01-31 06:25] LABS: BUN/Creatinine Ratio 97; Blood Urea Nitrogen 29 mg/dL (7-17); Calcium 8.6 mg/dL (8.4-10.2); Hemolysis Index 4
--- NOTE | 2019-01-31 09:39 | Progress Note ---
Assessment and Plan - Patient Problems (1) Foreign body alimentary tract Current Visit: Yes Status: Acute Qualifiers: Encounter type: initial encounter Qualified Code(s): T18.9XXA - Foreign body of alimentary tract, part unspecified, initial encounter Plan to address problem: Pt stable. s/p foreign body removal from cecum and Gastro-Jejunal feeding tube placement - 01/27 - POD#4. No apparent complications. Asked nurse to adjust abdominal binder to cover abd. Discussed with nurse. Rec: 1) Stop LIS on G-port and begin q4h residual checks 2) Begin trickle feeds via Jejunal port. No meds via Jejunal port. If tolerated today, slowly advance to goal starting tomorrow. Please call with questions. Subjective Date of service: 01/31/19 Patient Reports: Positive: no new complaints (no reports by staff) Objective Vital Signs - 12hr 01/30/19 01/30/19 01/31/19 22:00 22:14 02:18 Temperature 98.2 F Pulse Rate 106 H Respiratory 16 20 Rate Blood Pressure Blood Pressure 142/91 [Right] O2 Sat by Pulse 96 96 Oximetry 01/31/19 07:21 Temperature 97.7 F Pulse Rate 99 H Respiratory 18 Rate Blood Pressure 141/85 Blood Pressure [Right] O2 Sat by Pulse 96 Oximetry - General physical appearance no distress, no pain, other (resting comfortably) - Respiratory normal expansion, normal respiratory effort - Abdomen soft, distended (mild), surgical scars (C/D/I), other (abd binder was covering the chest) - Labs 01/28/19 04:13 01/31/19 05:16 Diabetes panel 01/31/19 Range/Units 05:16 Sodium 142 (137-145) mmol/L Potassium 3.7 (3.6-5.0) mmol/L Chloride 101.1 (98-107) mmol/L Carbon Dioxide 26 (22-30) mmol/L BUN 29 H (7-17) mg/dL Creatinine 0.3 L (0.7-1.2) mg/dL Glucose 129 H (65-100) mg/dL Calcium 8.6 (8.4-10.2) mg/dL Calcium panel 01/31/19 Range/Units 05:16 Calcium 8.6 (8.4-10.2) mg/dL Phosphorus 4.00 D (2.5-4.5) mg/dL Pituitary panel 01/31/19 Range/Units 05:16 Sodium 142 (137-145) mmol/L Potassium 3.7 (3.6-5.0) mmol/L Chloride 101.1 (98-107) mmol/L Carbon Dioxide 26 (22-30) mmol/L BUN 29 H (7-17) mg/dL Creatinine 0.3 L (0.7-1.2) mg/dL Glucose 129 H (65-100) mg/dL Calcium 8.6 (8.4-10.2) mg/dL Adrenal panel 01/31/19 Range/Units 05:16 Sodium 142 (137-145) mmol/L Potassium 3.7 (3.6-5.0) mmol/L Chloride 101.1 (98-107) mmol/L Carbon Dioxide 26 (22-30) mmol/L BUN 29 H (7-17) mg/dL Creatinine 0.3 L (0.7-1.2) mg/dL Glucose 129 H (65-100) mg/dL Calcium 8.6 (8.4-10.2) mg/dL
[2019-01-31] MEDS ORDERED: LIPASE 10,500/PROTEASE 25,000/AMYLASE 43,750 (UNITS) DR CAP FEEDTUBE PRN (09:41)
[2019-01-31] MEDS ORDERED: SODIUM BICARBONATE 325 MG TAB FEEDTUBE PRN (09:41)
[2019-01-31] MEDS ORDERED: SIMPLE SYRUP 15 ML FEEDTUBE PRN ×2 (09:41)
[2019-01-31] MEDS: HEPARIN 5,000 UNIT/1 ML VIAL SUB-Q SCH ×2 (10:43→22:11)
[2019-01-31] MEDS: LORazepam 1 MG TAB PO SCH ×2 (10:43→22:10)
--- NOTE | 2019-01-31 14:02 | Progress Note ---
Assessment and Plan Patient awake. Weak.Patient bruxing her teeth. Patient is on 2 litres O2. O2 saturation 96%. No acute respiratory distress. Patient running low grade temp. Repeating chest xray and CBC. - Patient Problems (1) Respiratory failure requiring intubation Current Visit: Yes Status: Acute Plan to address problem: Patient intubated and extubated presently on 2 l of O2. [id number] running at 96% (2) Cerebral palsy Current Visit: Yes Status: Acute Plan to address problem: Aspiration precautions management as per primary care (3) Constipation Current Visit: Yes Status: Acute Plan to address problem: Management as per primary care team (4) Ileus Current Visit: Yes Status: Acute Plan to address problem: Management as per primary care team Subjective Date of service: 01/31/19 Principal diagnosis: Ac Hypoxemic and Hypercapnic Resp failure; Anemia; Cerebral palsy Interval history: Patient awake. Weak.Patient bruxing her teeth. Patient is on 2 litres O2. O2 saturation 96%. No acute respiratory distress. Patient running low grade temp. Repeating chest xray and CBC. Objective Vital Signs - 12hr 01/31/19 01/31/19 01/31/19 02:18 07:21 10:25 Temperature 98.2 F 97.7 F Pulse Rate 106 H 99 H Pulse Rate [ 103 H Bilateral Throughout] Respiratory 20 18 Rate Respiratory 20 Rate [Bilateral Throughout] Blood Pressure 141/85 O2 Sat by Pulse 96 96 Oximetry 01/31/19 01/31/19 01/31/19 10:30 13:10 13:28 Temperature 122.0 F H 98.0 F Pulse Rate 109 H Pulse Rate [ Bilateral Throughout] Respiratory 18 Rate Respiratory Rate [Bilateral Throughout] Blood Pressure 115/79 O2 Sat by Pulse 97 98 Oximetry Constitutional: no acute distress, alert, other (elderly petite AAF, normocephalic with normal respiratory effort at rest) Eyes: non-icteric ENT: oropharynx moist Neck: supple, no lymphadenopathy, no JVD Effort: normal Ascultation: Bilateral: rales, rhonchi, other (referred upper airway sounds) Percussion: Bilateral: not dull Cardiovascular: regular rate and rhythm, other (S1,S2) Gastrointestinal: normoactive bowel sounds, soft, non-tender, non-distended Integumentary: rash Extremities: no cyanosis, no edema, pulses normal, no ischemia or petechiae Neurologic: non-focal exam (grossly), pupils equal and round, other (+ cognitive defect re: cerebral Palsy) Psychiatric: anxious CBC and BMP: 01/28/19 04:13 01/31/19 05:16 ABG, PT/INR, D-dimer: ABG POC ABG pH 7.518 (7.35-7.45) H 01/20/19 16:07 POC ABG pCO2 37.5 (35-45) 01/20/19 16:07 POC ABG pO2 210 (80-105) H 01/20/19 16:07 POC ABG HCO3 30.4 (22-26 mml/L) 01/20/19 16:07 POC ABG Total CO2 32 (23-27mmol/L) 01/20/19 16:07 POC ABG O2 Sat 100 01/20/19 16:07 PT/INR, D-dimer PT 12.9 Sec. (12.2-14.9) 01/26/19 04:12 INR 0.98 (0.87-1.13) 01/26/19 04:12 D-Dimer 135.00 ng/mlDDU (0-234) 01/13/19 00:27 Abnormal lab findings: Abnormal Labs 01/13/19 01/13/19 01/13/19 00:27 00:27 00:27 WBC RBC 3.36 L Hgb Hct Plt Count Lymph % (Auto) 4.2 L [place] % (Auto) Lymph # 0.3 L Seg Neutrophils % 89.1 H Seg Neuts % (Manual) Lymphocytes % (Manual) Seg Neutrophils # Seg Neutrophils # Man Lymphocytes # (Manual) APTT POC ABG pH POC ABG pCO2 POC ABG pO2 VBG pH 7.178 L* Sodium Potassium Chloride 109.1 H Carbon Dioxide 20 L BUN 29 H Creatinine Glucose 175 H POC Glucose Lactic Acid Calcium 7.8 L Phosphorus AST ALT CK-MB (CK-2) 7.7 H CK-MB (CK-2) Rel Index 7.2 H Total Protein 6.0 L Albumin 3.3 L Ur Specific [place] 01/13/19 01/13/19 01/13/19 00:27 02:14 02:22 WBC RBC Hgb Hct Plt Count Lymph % (Auto) [place] % (Auto) Lymph # Seg Neutrophils % Seg Neuts % (Manual) Lymphocytes % (Manual) Seg Neutrophils # Seg Neutrophils # Man Lymphocytes # (Manual) APTT POC ABG pH 7.276 L POC ABG pCO2 49.4 H POC ABG pO2 156 H VBG pH Sodium Potassium Chloride Carbon Dioxide BUN Creatinine Glucose POC Glucose Lactic Acid 2.90 H* 0.30 L Calcium Phosphorus AST ALT CK-MB (CK-2) CK-MB (CK-2) Rel Index Total Protein Albumin Ur Specific [place] 01/13/19 01/13/19 01/14/19 02:22 02:34 05:13 WBC RBC 2.96 L Hgb 9.3 L Hct 27.4 L Plt Count Lymph % (Auto) [place] % (Auto) 11.9 H Lymph # Seg Neutrophils % Seg Neuts % (Manual) Lymphocytes % (Manual) Seg Neutrophils # Seg Neutrophils # Man Lymphocytes # (Manual) APTT 39.4 H POC ABG pH POC ABG pCO2 POC ABG pO2 VBG pH Sodium Potassium Chloride Carbon Dioxide BUN Creatinine Glucose POC Glucose Lactic Acid Calcium Phosphorus AST ALT CK-MB (CK-2) CK-MB (CK-2) Rel Index Total Protein Albumin Ur Specific [place] 1.051 H 01/14/19 01/14/19 01/15/19 05:13 06:06 04:31 WBC RBC Hgb Hct Plt Count Lymph % (Auto) [place] % (Auto) Lymph # Seg Neutrophils % Seg Neuts % (Manual) Lymphocytes % (Manual) Seg Neutrophils # Seg Neutrophils # Man Lymphocytes # (Manual) APTT POC ABG pH POC ABG pCO2 33.7 L POC ABG pO2 121 H 114 H VBG pH Sodium Potassium Chloride Carbon Dioxide 21 L BUN 22 H Creatinine 0.6 L Glucose 62 L POC Glucose Lactic Acid Calcium 8.0 L Phosphorus AST ALT CK-MB (CK-2) CK-MB (CK-2) Rel Index Total Protein Albumin Ur Specific [place] 01/15/19 01/15/19 01/16/19 08:51 10:07 02:56 WBC RBC Hgb Hct Plt Count Lymph % (Auto) [place] % (Auto) Lymph # Seg Neutrophils % Seg Neuts % (Manual) Lymphocytes % (Manual) Seg Neutrophils # Seg Neutrophils # Man Lymphocytes # (Manual) APTT POC ABG pH POC ABG pCO2 POC ABG pO2 VBG pH Sodium Potassium Chloride Carbon Dioxide BUN Creatinine Glucose POC Glucose < 40 L 158 H 142 H Lactic Acid Calcium Phosphorus AST ALT CK-MB (CK-2) CK-MB (CK-2) Rel Index Total Protein Albumin Ur Specific [place] 01/16/19 01/17/19 01/17/19 17:54 04:06 04:23 WBC RBC Hgb Hct Plt Count Lymph % (Auto) [place] % (Auto) Lymph # Seg Neutrophils % Seg Neuts % (Manual) Lymphocytes % (Manual) Seg Neutrophils # Seg Neutrophils # Man Lymphocytes # (Manual) APTT POC ABG pH POC ABG pCO2 33.7 L POC ABG pO2 VBG pH Sodium Potassium Chloride Carbon Dioxide BUN Creatinine Glucose POC Glucose 123 H 161 H Lactic Acid Calcium Phosphorus AST ALT CK-MB (CK-2) CK-MB (CK-2) Rel Index Total Protein Albumin Ur Specific [place] 01/17/19 01/18/19 01/19/19 11:20 04:34 11:55 WBC RBC Hgb Hct Plt Count Lymph % (Auto) [place] % (Auto) Lymph # Seg Neutrophils % Seg Neuts % (Manual) Lymphocytes % (Manual) Seg Neutrophils # Seg Neutrophils # Man Lymphocytes # (Manual) APTT POC ABG pH 7.498 H 7.484 H POC ABG pCO2 32.1 L POC ABG pO2 121 H 52 L VBG pH Sodium Potassium Chloride Carbon Dioxide BUN Creatinine Glucose POC Glucose Lactic Acid Calcium Phosphorus AST ALT CK-MB (CK-2) CK-MB (CK-2) Rel Index Total Protein Albumin Ur Specific [place] 01/19/19 01/20/19 01/20/19 23:45 06:30 13:22 WBC RBC Hgb Hct Plt Count Lymph % (Auto) [place] % (Auto) Lymph # Seg Neutrophils % Seg Neuts % (Manual) Lymphocytes % (Manual) Seg Neutrophils # Seg Neutrophils # Man Lymphocytes # (Manual) APTT POC ABG pH POC ABG pCO2 POC ABG pO2 VBG pH Sodium Potassium Chloride Carbon Dioxide BUN Creatinine Glucose POC Glucose 128 H 107 H 149 H Lactic Acid Calcium Phosphorus AST ALT CK-MB (CK-2) CK-MB (CK-2) Rel Index Total Protein Albumin Ur Specific [place] 01/20/19 01/20/19 01/20/19 16:07 18:11 22:53 WBC RBC Hgb Hct Plt Count Lymph % (Auto) [place] % (Auto) Lymph # Seg Neutrophils % Seg Neuts % (Manual) Lymphocytes % (Manual) Seg Neutrophils # Seg Neutrophils # Man Lymphocytes # (Manual) APTT POC ABG pH 7.518 H POC ABG pCO2 POC ABG pO2 210 H VBG pH Sodium Potassium Chloride Carbon Dioxide BUN Creatinine Glucose POC Glucose 139 H 166 H Lactic Acid Calcium Phosphorus AST ALT CK-MB (CK-2) CK-MB (CK-2) Rel Index Total Protein Albumin Ur Specific [place] 01/21/19 01/21/19 01/21/19 04:36 04:47 04:47 WBC RBC 2.89 L Hgb 8.9 L Hct 26.7 L Plt Count Lymph % (Auto) 13.0 L [place] % (Auto) 9.6 H Lymph # 0.7 L Seg Neutrophils % 77.0 H Seg Neuts % (Manual) Lymphocytes % (Manual) Seg Neutrophils # Seg Neutrophils # Man Lymphocytes # (Manual) APTT POC ABG pH POC ABG pCO2 POC ABG pO2 VBG pH Sodium 134 L Potassium Chloride 96.9 L Carbon Dioxide BUN 18 H Creatinine 0.4 L Glucose 138 H POC Glucose 138 H Lactic Acid Calcium 8.0 L Phosphorus AST 171 H ALT 102 H CK-MB (CK-2) CK-MB (CK-2) Rel Index Total Protein 5.6 L Albumin 2.2 L Ur Specific [place] 01/22/19 01/22/19 01/22/19 00:31 05:27 12:16 WBC RBC Hgb Hct Plt Count Lymph % (Auto) [place] % (Auto) Lymph # Seg Neutrophils % Seg Neuts % (Manual) Lymphocytes % (Manual) Seg Neutrophils # Seg Neutrophils # Man Lymphocytes # (Manual) APTT POC ABG pH POC ABG pCO2 POC ABG pO2 VBG pH Sodium Potassium Chloride Carbon Dioxide BUN Creatinine Glucose POC Glucose 113 H 106 H 113 H Lactic Acid Calcium Phosphorus AST ALT CK-MB (CK-2) CK-MB (CK-2) Rel Index Total Protein Albumin Ur Specific [place] 01/23/19 01/23/19 01/23/19 00:35 05:43 11:55 WBC RBC Hgb Hct Plt Count Lymph % (Auto) [place] % (Auto) Lymph # Seg Neutrophils % Seg Neuts % (Manual) Lymphocytes % (Manual) Seg Neutrophils # Seg Neutrophils # Man Lymphocytes # (Manual) APTT POC ABG pH POC ABG pCO2 POC ABG pO2 VBG pH Sodium Potassium Chloride Carbon Dioxide BUN Creatinine Glucose POC Glucose 120 H 139 H 119 H Lactic Acid Calcium Phosphorus AST ALT CK-MB (CK-2) CK-MB (CK-2) Rel Index Total Protein Albumin Ur Specific [place] 01/23/19 01/24/19 01/24/19 18:34 00:40 05:42 WBC RBC Hgb Hct Plt Count Lymph % (Auto) [place] % (Auto) Lymph # Seg Neutrophils % Seg Neuts % (Manual) Lymphocytes % (Manual) Seg Neutrophils # Seg Neutrophils # Man Lymphocytes # (Manual) APTT POC ABG pH POC ABG pCO2 POC ABG pO2 VBG pH Sodium Potassium Chloride Carbon Dioxide BUN Creatinine Glucose POC Glucose 146 H 136 H 119 H Lactic Acid Calcium Phosphorus AST ALT CK-MB (CK-2) CK-MB (CK-2) Rel Index Total Protein Albumin Ur Specific [place] 01/24/19 01/25/19 01/25/19 11:35 00:09 06:30 WBC RBC Hgb Hct Plt Count Lymph % (Auto) [place] % (Auto) Lymph # Seg Neutrophils % Seg Neuts % (Manual) Lymphocytes % (Manual) Seg Neutrophils # Seg Neutrophils # Man Lymphocytes # (Manual) APTT POC ABG pH POC ABG pCO2 POC ABG pO2 VBG pH Sodium Potassium Chloride Carbon Dioxide BUN Creatinine Glucose POC Glucose 117 H 119 H 127 H Lactic Acid Calcium Phosphorus AST ALT CK-MB (CK-2) CK-MB (CK-2) Rel Index Total Protein Albumin Ur Specific [place] 01/25/19 01/26/19 01/26/19 12:10 00:21 04:12 WBC RBC 3.05 L Hgb 9.3 L Hct 27.5 L Plt Count Lymph % (Auto) [place] % (Auto) 10.0 H Lymph # 0.9 L Seg Neutrophils % 73.9 H Seg Neuts % (Manual) Lymphocytes % (Manual) Seg Neutrophils # Seg Neutrophils # Man Lymphocytes # (Manual) APTT POC ABG pH POC ABG pCO2 POC ABG pO2 VBG pH Sodium Potassium Chloride Carbon Dioxide BUN Creatinine Glucose POC Glucose 109 H 125 H Lactic Acid Calcium Phosphorus AST ALT CK-MB (CK-2) CK-MB (CK-2) Rel Index Total Protein Albumin Ur Specific [place] 01/26/19 01/27/19 01/27/19 04:12 04:49 04:49 WBC RBC 3.11 L Hgb 9.5 L Hct 28.0 L Plt Count 477 H Lymph % (Auto) 7.4 L [place] % (Auto) Lymph # 0.8 L Seg Neutrophils % 87.7 H Seg Neuts % (Manual) Lymphocytes % (Manual) Seg Neutrophils # 9.0 H Seg Neutrophils # Man Lymphocytes # (Manual) APTT POC ABG pH POC ABG pCO2 POC ABG pO2 VBG pH Sodium 133 L 131 L Potassium 5.4 H D Chloride Carbon Dioxide 20 L BUN 26 H 28 H Creatinine 0.5 L 0.5 L Glucose POC Glucose Lactic Acid Calcium Phosphorus 4.60 H AST 161 H 82 H ALT 208 H 122 H CK-MB (CK-2) CK-MB (CK-2) Rel Index Total Protein 6.2 L Albumin 2.8 L 2.7 L Ur Specific [place] 01/28/19 01/28/19 01/28/19 04:13 04:13 06:14 WBC 14.9 H RBC 2.94 L Hgb 8.9 L Hct 26.5 L Plt Count 514 H Lymph % (Auto) [place] % (Auto) Lymph # Seg Neutrophils % Seg Neuts % (Manual) 93.0 H Lymphocytes % (Manual) 2.0 L Seg Neutrophils # Seg Neutrophils # Man 13.9 H Lymphocytes # (Manual) 0.3 L APTT POC ABG pH POC ABG pCO2 POC ABG pO2 VBG pH Sodium Potassium Chloride Carbon Dioxide 19 L BUN 42 H Creatinine 0.5 L Glucose 134 H POC Glucose 159 H Lactic Acid Calcium Phosphorus AST 91 H ALT 108 H CK-MB (CK-2) CK-MB (CK-2) Rel Index Total Protein 6.1 L Albumin 2.7 L Ur Specific [place] 01/28/19 01/28/19 01/29/19 12:43 17:49 00:13 WBC RBC Hgb Hct Plt Count Lymph % (Auto) [place] % (Auto) Lymph # Seg Neutrophils % Seg Neuts % (Manual) Lymphocytes % (Manual) Seg Neutrophils # Seg Neutrophils # Man Lymphocytes # (Manual) APTT POC ABG pH POC ABG pCO2 POC ABG pO2 VBG pH Sodium Potassium Chloride Carbon Dioxide BUN Creatinine Glucose POC Glucose 159 H 151 H 148 H Lactic Acid Calcium Phosphorus AST ALT CK-MB (CK-2) CK-MB (CK-2) Rel Index Total Protein Albumin Ur Specific [place] 01/29/19 01/29/19 01/29/19 07:00 07:43 08:47 WBC RBC Hgb Hct Plt Count Lymph % (Auto) [place] % (Auto) Lymph # Seg Neutrophils % Seg Neuts % (Manual) Lymphocytes % (Manual) Seg Neutrophils # Seg Neutrophils # Man Lymphocytes # (Manual) APTT POC ABG pH POC ABG pCO2 POC ABG pO2 VBG pH Sodium Potassium 3.4 L Chloride Carbon Dioxide 21 L BUN 46 H Creatinine 0.3 L Glucose 117 H POC Glucose 130 H 144 H Lactic Acid Calcium Phosphorus AST ALT CK-MB (CK-2) CK-MB (CK-2) Rel Index Total Protein Albumin Ur Specific [place] 01/29/19 01/29/19 01/30/19 11:31 16:21 00:33 WBC RBC Hgb Hct Plt Count Lymph % (Auto) [place] % (Auto) Lymph # Seg Neutrophils % Seg Neuts % (Manual) Lymphocytes % (Manual) Seg Neutrophils # Seg Neutrophils # Man Lymphocytes # (Manual) APTT POC ABG pH POC ABG pCO2 POC ABG pO2 VBG pH Sodium Potassium Chloride Carbon Dioxide BUN Creatinine Glucose POC Glucose 133 H 138 H 159 H Lactic Acid Calcium Phosphorus AST ALT CK-MB (CK-2) CK-MB (CK-2) Rel Index Total Protein Albumin Ur Specific [place] 01/30/19 01/30/19 01/30/19 04:13 06:04 07:34 WBC RBC Hgb Hct Plt Count Lymph % (Auto) [place] % (Auto) Lymph # Seg Neutrophils % Seg Neuts % (Manual) Lymphocytes % (Manual) Seg Neutrophils # Seg Neutrophils # Man Lymphocytes # (Manual) APTT POC ABG pH POC ABG pCO2 POC ABG pO2 VBG pH Sodium Potassium 3.3 L Chloride Carbon Dioxide BUN 34 H Creatinine 0.3 L Glucose 156 H POC Glucose 136 H 130 H Lactic Acid Calcium Phosphorus AST ALT CK-MB (CK-2) CK-MB (CK-2) Rel Index Total Protein Albumin Ur Specific [place] 01/30/19 01/30/19 01/31/19 12:36 18:55 05:16 WBC RBC Hgb Hct Plt Count Lymph % (Auto) [place] % (Auto) Lymph # Seg Neutrophils % Seg Neuts % (Manual) Lymphocytes % (Manual) Seg Neutrophils # Seg Neutrophils # Man Lymphocytes # (Manual) APTT POC ABG pH POC ABG pCO2 POC ABG pO2 VBG pH Sodium Potassium Chloride Carbon Dioxide BUN 29 H Creatinine 0.3 L Glucose 129 H POC Glucose 134 H 114 H Lactic Acid Calcium Phosphorus AST ALT CK-MB (CK-2) CK-MB (CK-2) Rel Index Total Protein Albumin Ur Specific [place] 01/31/19 11:32 WBC RBC Hgb Hct Plt Count Lymph % (Auto) [place] % (Auto) Lymph # Seg Neutrophils % Seg Neuts % (Manual) Lymphocytes % (Manual) Seg Neutrophils # Seg Neutrophils # Man Lymphocytes # (Manual) APTT POC ABG pH POC ABG pCO2 POC ABG pO2 VBG pH Sodium Potassium Chloride Carbon Dioxide BUN Creatinine Glucose POC Glucose 127 H Lactic Acid Calcium Phosphorus AST ALT CK-MB (CK-2) CK-MB (CK-2) Rel Index Total Protein Albumin Ur Specific [place] Allied health notes reviewed: nursing
--- NOTE | 2019-01-31 17:47 | Progress Note ---
Assessment and Plan Assessment and plan: Patient is a 68-year-old woman with a history of history of cerebral palsy, mental retardation and chronic constipation who presented to [facility] ED on 01/12/19 SOB and respiratory distress, constipation and increasing swelling of the abdomen. Patient's sister Angelique Meza is her caregiver. Ms. Meza noticed abdomen was more distended than usual. It was discovered thru collateral history that patient has a well-established history of Pica-like behavior. Pt had a PEG tube 15 years ago that she pulled out. She was able to eat without any difficulties recently.Patient went to the bathroom and had a large hard bowel movement followed by acute severe shortness of breath and respiratory distress. Upon arrival to the ED, patient was on 100% O2 NRB mask with agonal respirations. She was confused and unresponsive; therefore, she was intubated via ETT. Abdomen was noted to be hard and distended. Of note, Patient's only previous abdominal surgical history is a PEG tube which is no longer present. CT of the abdomen shows fecal impaction. She was admitted to ICU intubated. She was extubated on 01/18/19. However, the abdominal distension persisted after multiple bowel treatments, the fecal impaction was felt to be resolved. Nonetheless, she failed her swallow study and was subsequently set up for PEG tube placement by GI. Then on 01/26/[address] Bruce found foreign bodies (pieces of plastic) in the stomach. Dr. Bruce felt they may be contributing to her bowel issues. He was unable to remove them due to the large size. Therefore, he requested general surgery consult. Then on 01/27/19, She underwent exploratory laparatomy and plastic glove was found in the cecum via ingestion. It was removed and Gastro-Jejunostomy tube was place. 01/26/2019 EGD with attempted foreign body removal Pre-op diagnosis: Neurogenic Dysphagia Post-op diagnosis: other (Foreign Body Stomach) Findings: 1. Large pieces of plastic in stomach; unable to remove through GE junction despite rat tooth forceps, snare, or Gunn net, 2. Able to traverse pylorus (once plastic pushed to side), 3. Small hiatal hernia, 4. LA Grade A esophagitis Date of procedure: 01/27/19 (dictation: [id number]) Pre-op diagnosis: foreign body ingestion Post-op diagnosis: same Findings: plastic glove found in cecum. Procedure: Ex Lap, Gastro-Jejunostomy tube placement, removal of foreign body from cecum Diagnoses: Acute combined respiratory failure s/p MV > 96 hours Dyphagia and Foreign body removal s/p Ex-lap: General Surgery following SBO/ileus: TPN ,monitor electrolytes Acute metabolic encephalopathy as above Hyperkalemia; monitor bmp closely calcium chloride Transaminitis; Monitor LFTs closely, consult GI if needed Cerebral palsy history of cerebral palsy. Fecal impaction: Resolved, stool softeners as needed. Severe malnutrition, bmi 15.3: Window Dresser following DVT prophylaxis On Heparin SQ. Disposition: subacute rehab. States that patient was able to walk unassisted prior to this event D/W sister Angelique Meza at bedside History Interval history: Patient was seen and examined. Follow-up on current diagnosis. No overnight events reported to me. Not cooperative today. Nonverbal. Imaging, nursing note, chart, labs and old chart reviewed. Hospitalist Physical - Physical exam Narrative exam: Gen: cachetic, bmi 15.3, nonverbal CVS/Heart: Regular tachycardia, normal S1S2, pulses present bilaterally Chest/Lungs: Symmetrical chest expansion, good air entry bilaterally GI/Abdomen: soft, binder in place /Bladder: no suprapubic tenderness, no CVA or paraspinal tenderness Extermity/Skin: atrophic limbs MSK: contracted limbs Neuro: CN 2-12 grossly intact, doesn't follow commands Psych: calm but confused - Constitutional Vitals: Temp Pulse Resp BP Pulse Ox 98.0 F 109 H 18 115/79 98 01/31/19 13:28 01/31/19 13:10 01/31/19 13:10 01/31/19 13:10 01/31/19 13:10 General appearance: Present: no acute distress. Absent: well-nourished Results - Labs CBC & Chem 7: 01/28/19 04:13 01/31/19 05:16 Labs: Laboratory Last Values WBC 14.9 K/mm3 (4.5-11.0) H 01/28/19 04:13 RBC 2.94 M/mm3 (3.65-5.03) L 01/28/19 04:13 Hgb 8.9 gm/dl (10.1-14.3) L 01/28/19 04:13 Hct 26.5 % (30.3-42.9) L 01/28/19 04:13 MCV 90 fl (79-97) 01/28/19 04:13 MCH 30 pg (28-32) 01/28/19 04:13 MCHC 34 % (30-34) 01/28/19 04:13 RDW 13.4 % (13.2-15.2) 01/28/19 04:13 Plt Count 514 K/mm3 (140-440) H 01/28/19 04:13 Lymph % (Auto) 7.4 % (13.4-35.0) L 01/27/19 04:49 [place] % (Auto) 4.4 % (0.0-7.3) 01/27/19 04:49 Eos % (Auto) 0.1 % (0.0-4.3) 01/27/19 04:49 Baso % (Auto) 0.4 % (0.0-1.8) 01/27/19 04:49 Lymph # 0.8 K/mm3 (1.2-5.4) L 01/27/19 04:49 [place] # 0.4 K/mm3 (0.0-0.8) 01/27/19 04:49 Eos # 0.0 K/mm3 (0.0-0.4) 01/27/19 04:49 Baso # 0.0 K/mm3 (0.0-0.1) 01/27/19 04:49 Add Manual Diff Complete 01/28/19 04:13 Total Counted 100 01/28/19 04:13 Seg Neutrophils % Editor 01/28/19 04:13 Seg Neuts % (Manual) 93.0 % (40.0-70.0) H 01/28/19 04:13 Band Neutrophils % 2.0 % 01/28/19 04:13 Lymphocytes % (Manual) 2.0 % (13.4-35.0) L 01/28/19 04:13 Reactive Lymphs % (Man) 0 % 01/28/19 04:13 Monocytes % (Manual) 3.0 % (0.0-7.3) 01/28/19 04:13 Eosinophils % (Manual) 0 % (0.0-4.3) 01/28/19 04:13 Basophils % (Manual) 0 % (0.0-1.8) 01/28/19 04:13 Metamyelocytes % 0 % 01/28/19 04:13 Myelocytes % 0 % 01/28/19 04:13 Promyelocytes % 0 % 01/28/19 04:13 Blast Cells % 0 % 01/28/19 04:13 Nucleated RBC % Not Reportable 01/28/19 04:13 Seg Neutrophils # 9.0 K/mm3 (1.8-7.7) H 01/27/19 04:49 Seg Neutrophils # Man 13.9 K/mm3 (1.8-7.7) H 01/28/19 04:13 Band Neutrophils # 0.3 K/mm3 01/28/19 04:13 Lymphocytes # (Manual) 0.3 K/mm3 (1.2-5.4) L 01/28/19 04:13 Abs React Lymphs (Man) 0.0 K/mm3 01/28/19 04:13 Monocytes # (Manual) 0.4 K/mm3 (0.0-0.8) 01/28/19 04:13 Eosinophils # (Manual) 0.0 K/mm3 (0.0-0.4) 01/28/19 04:13 Basophils # (Manual) 0.0 K/mm3 (0.0-0.1) 01/28/19 04:13 Metamyelocytes # 0.0 K/mm3 01/28/19 04:13 Myelocytes # 0.0 K/mm3 01/28/19 04:13 Promyelocytes # 0.0 K/mm3 01/28/19 04:13 Blast Cells # 0.0 K/mm3 01/28/19 04:13 WBC Morphology Not Reportable 01/28/19 04:13 Hypersegmented Neuts Not Reportable 01/28/19 04:13 Hyposegmented Neuts Not Reportable 01/28/19 04:13 Hypogranular Neuts Not Reportable 01/28/19 04:13 Smudge Cells Not Reportable 01/28/19 04:13 Toxic Granulation Not Reportable 01/28/19 04:13 Toxic Vacuolation Not Reportable 01/28/19 04:13 Dohle Bodies Not Reportable 01/28/19 04:13 Pelger-Huet Anomaly Not Reportable 01/28/19 04:13 Shivani Rods Not Reportable 01/28/19 04:13 Platelet Estimate Consistent w auto 01/28/19 04:13 Clumped Platelets Not Reportable 01/28/19 04:13 Plt Clumps, EDTA Not Reportable 01/28/19 04:13 Large Platelets Not Reportable 01/28/19 04:13 Giant Platelets Not Reportable 01/28/19 04:13 Platelet Satelliting Not Reportable 01/28/19 04:13 Plt Morphology Comment Not Reportable 01/28/19 04:13 RBC Morphology Not Reportable 01/28/19 04:13 Dimorphic RBCs Not Reportable 01/28/19 04:13 Polychromasia Not Reportable 01/28/19 04:13 Hypochromasia Not Reportable 01/28/19 04:13 Poikilocytosis Not Reportable 01/28/19 04:13 Anisocytosis 1+ 01/28/19 04:13 Microcytosis Not Reportable 01/28/19 04:13 Macrocytosis Not Reportable 01/28/19 04:13 Spherocytes Not Reportable 01/28/19 04:13 Pappenheimer Bodies Not Reportable 01/28/19 04:13 Sickle Cells Not Reportable 01/28/19 04:13 Target Cells Not Reportable 01/28/19 04:13 Tear Drop Cells Not Reportable 01/28/19 04:13 Ovalocytes Not Reportable 01/28/19 04:13 Helmet Cells Not Reportable 01/28/19 04:13 [place] Bodies Not Reportable 01/28/19 04:13 [place] Rings Not Reportable 01/28/19 04:13 [place] Cells Not Reportable 01/28/19 04:13 Bite Cells Not Reportable 01/28/19 04:13 Crenated Cell Not Reportable 01/28/19 04:13 Elliptocytes Not Reportable 01/28/19 04:13 Acanthocytes (Spur) Not Reportable 01/28/19 04:13 Rouleaux Not Reportable 01/28/19 04:13 Hemoglobin C Crystals Not Reportable 01/28/19 04:13 Schistocytes Not Reportable 01/28/19 04:13 Malaria parasites Not Reportable 01/28/19 04:13 Sebas Bodies Not Reportable 01/28/19 04:13 Hem Pathologist Commnt No 01/28/19 04:13 PT 12.9 Sec. (12.2-14.9) 01/26/19 04:12 INR 0.98 (0.87-1.13) 01/26/19 04:12 APTT 31.9 Sec. (24.2-36.6) 01/14/19 05:13 D-Dimer 135.00 ng/mlDDU (0-234) 01/13/19 00:27 POC ABG pH 7.518 (7.35-7.45) H 01/20/19 16:07 POC ABG pCO2 37.5 (35-45) 01/20/19 16:07 POC ABG pO2 210 (80-105) H 01/20/19 16:07 POC ABG HCO3 30.4 (22-26 mml/L) 01/20/19 16:07 POC ABG Total CO2 32 (23-27mmol/L) 01/20/19 16:07 POC ABG O2 Sat 100 01/20/19 16:07 POC ABG Base Excess 8 ((-2) - (+3)mmol/L) 01/20/19 16:07 VBG pH 7.178 (7.320-7.420) L* 01/13/19 00:27 FiO2 50 % 01/20/19 16:07 Sodium 142 mmol/L (137-145) 01/31/19 05:16 Potassium 3.7 mmol/L (3.6-5.0) 01/31/19 05:16 Chloride 101.1 mmol/L (98-107) 01/31/19 05:16 Carbon Dioxide 26 mmol/L (22-30) 01/31/19 05:16 Anion Gap 19 mmol/L 01/31/19 05:16 BUN 29 mg/dL (7-17) H 01/31/19 05:16 Creatinine 0.3 mg/dL (0.7-1.2) L 01/31/19 05:16 Estimated GFR > 60 ml/min 01/31/19 05:16 BUN/Creatinine Ratio 97 % 01/31/19 05:16 Glucose 129 mg/dL (65-100) H 01/31/19 05:16 POC Glucose 141 (70-105) H 01/31/19 16:58 Lactic Acid 0.30 mmol/L (0.7-2.0) L 01/13/19 02:22 Calcium 8.6 mg/dL (8.4-10.2) 01/31/19 05:16 Phosphorus 4.00 mg/dL (2.5-4.5) D 01/31/19 05:16 Magnesium 2.10 mg/dL (1.7-2.3) 01/31/19 05:16 Total Bilirubin 0.20 mg/dL (0.1-1.2) 01/28/19 04:13 AST 91 units/L (5-40) H 01/28/19 04:13 ALT 108 units/L (7-56) H 01/28/19 04:13 Alkaline Phosphatase 97 units/L (35-129) 01/28/19 04:13 Ammonia 25.0 umol/L (25-60) 01/13/19 00:27 Total Creatine Kinase 106 units/L (30-135) 01/13/19 00:27 CK-MB (CK-2) 7.7 ng/mL (0.0-4.0) H 01/13/19 00:27 CK-MB (CK-2) Rel Index 7.2 (0-4) H 01/13/19 00:27 Troponin T < 0.010 ng/mL (0.00-0.029) 01/13/19 00:27 NT-Pro-B Natriuret Pep 52.36 pg/mL (0-900) 01/13/19 00:27 Total Protein 6.1 g/dL (6.3-8.2) L 01/28/19 04:13 Albumin 2.7 g/dL (3.9-5) L 01/28/19 04:13 Albumin/Globulin Ratio 0.8 % 01/28/19 04:13 Urine Color Yellow (Yellow) 01/13/19 02:34 Urine Turbidity Slightly-cloudy (Clear) 01/13/19 02:34 Urine pH 5.0 (5.0-7.0) 01/13/19 02:34 Ur Specific [place] 1.051 (1.003-1.030) H 01/13/19 02:34 Urine Protein <15 mg/dl mg/dL (Negative) 01/13/19 02:34 Urine Glucose (UA) 50 mg/dL (Negative) 01/13/19 02:34 Urine Ketones Neg mg/dL (Negative) 01/13/19 02:34 Urine Blood Neg (Negative) 01/13/19 02:34 Urine Nitrite Neg (Negative) 01/13/19 02:34 Urine Bilirubin Neg (Negative) 01/13/19 02:34 Urine Urobilinogen < 2.0 mg/dL (<2.0) 01/13/19 02:34 Ur Leukocyte Esterase Neg (Negative) 01/13/19 02:34 Urine WBC (Auto) < 1.0 /HPF (0.0-6.0) 01/13/19 02:34 Urine RBC (Auto) < 1.0 /HPF (0.0-6.0) 01/13/19 02:34 U Epithel Cells (Auto) < 1.0 /HPF (0-13.0) 01/13/19 02:34 Urine Bacteria (Auto) 1+ /HPF (Negative) 01/13/19 02:34 Urine Mucus 1+ /HPF 01/13/19 02:34 Blood Type O POSITIVE 01/27/19 16:00 Antibody Screen Negative 01/27/19 16:00 Active Medications - Current Medications Current Medications: Generic Name Dose Route Start Last Admin Trade Name Freq PRN Reason Stop Dose Admin Acetaminophen 650 mg 01/13/19 04:55 Tylenol IL Q6H PRN Pain MILD(1-3)/Fever >100.5/WOOD Albuterol/Ipratropium 1 ampul 01/22/19 14:00 01/31/19 15:41 Duoneb *Not For Prn Use* IH 1 ampul Q6HRT JOAN Administration Lipase/Protease/Amylase 1 each 01/31/19 09:41 Pancrenicolasa Schwartz 10,500 Unit FEEDTUBE PRN PRN For Clogged Feeding Tube Bisacodyl 10 mg 01/13/19 04:55 01/16/19 11:30 Dulcolax IL 10 mg QDAY PRN Administration constipation unrelieved by MOM Dextrose 25 ml 01/15/19 08:51 01/15/19 09:00 D50w (25gm) Syringe IV 25 ml Q30MIN PRN Administration Hypoglycemia Protocol Haloperidol 5 mg 01/15/19 22:00 01/30/19 22:52 Haldol PO 5 mg QHS JOAN Administration Heparin Sodium (Porcine) 5,000 unit 01/15/19 22:00 01/31/19 10:43 Heparin SUB-Q 5,000 unit Q12HR JOAN Administration Hydralazine HCl 10 mg 01/18/19 18:48 01/18/19 19:36 Apresoline IV 10 mg Q3HR PRN Administration SBP >/=160 Hydrophilic Ointment 1 applic 01/12/19 23:54 Vaseline Lip Therapy TP Q2HR PRN Dry Lips Amino Acids/Electrolytes/Dextrose 1,800 mls @ 75 mls/hr 01/30/19 20:00 01/30/19 21:04 Tpn Adult IV 01/31/19 19:59 75 mls/hr DAILY@1999 [facility] Administration Protocol Amino Acids/Electrolytes/Dextrose 1,800 mls @ 75 mls/hr 01/31/19 20:00 Tpn Adult IV 02/01/19 19:59 DAILY@1999 [facility] Protocol Fat Emulsion Intravenous 250 mls @ 21 mls/hr 01/31/19 20:00 Intralipid 20% IV 02/01/19 08:00 DAILY@1999 [facility] Lorazepam 1 mg 01/20/19 22:00 01/31/19 10:43 Ativan PO 1 mg BID JOAN Administration Multi-Ingred Cream/Lotion/Oil/Oint 1 applic 01/12/19 23:54 Artificial Tears Ophth Oint OU Q4HR PRN Dry Eye(s) Ondansetron HCl 4 mg 01/13/19 04:55 Zofran IV Q8H PRN Nausea And Vomiting Quetiapine Fumarate 400 mg 01/22/19 22:00 01/30/19 22:53 Seroquel PO 400 mg QHS JOAN Administration Simple Syrup 15 ml 01/31/19 09:41 Simple Syrup FEEDTUBE PRN PRN Hypoglycemia Simple Syrup 30 ml 01/31/19 09:41 Simple Syrup FEEDTUBE PRN PRN Hypoglycemia Sodium Bicarbonate 325 mg 01/31/19 09:41 Sodium Bicarbonate FEEDTUBE PRN PRN For Clogged Feeding Tube Sodium Chloride 10 ml 01/13/19 10:00 01/31/19 10:43 Sodium Chloride Flush Syringe 10 Ml IV 10 ml BID JOAN Administration Sodium Chloride 10 ml 01/13/19 04:55 01/26/19 17:15 Sodium Chloride Flush Syringe 10 Ml IV 10 ml PRN PRN Administration LINE FLUSH Nutrition/Malnutrition Assess - Dietary Evaluation Nutrition/Malnutrition Findings: Nutrition Notes Start: 01/13/19 12:10 Freq: Status: Active Protocol: Document 01/31/19 10:13 ANGELIKA (Rec: 01/31/19 11:06 ANGELIKA [id number]) Co-Sign 01/31/19 10:13 LM Nutrition Notes Initial or Follow up Reassessment Current Diagnosis Respiratory Failure Other Pertinent Diagnosis Cerebral palsy, Seizure, fecal impaction, dehydration Current Diet PPN at 75 ml/hr Labs/Tests BUN 29 Cr 0.3 BG 129 Pertinent Medications Reviewed Height 5 ft 2 in Weight 38 kg [place] Body Weight (kg) 50.00 BMI 15.3 Weight Status Underweight Subjective/Other Information PPN day 5. Pt consult per MD for a trickle feed. If they tolerate it advance to goal tomorrow. Percent of energy/protein needs met: 41%/100% Burn Absent Trauma Absent GI Symptoms None Current % PO Negligible Minimum of two criteria Yes Interpretation of Weight Loss (non- 7.5% in 3 months severe) Body Fat Depletion Moderate depletion (severe) Muscle Mass Moderate Depletion (severe) #2 Nutrition Diagnosis Malnutrition Diagnosis Progress(for reassessment Continues documentation) #1 Nutrition Diagnosis Inadequate oral intake Diagnosis Progress(for reassessment Continues documentation) Is patient on ventilator? No Is Patient Ambulatory and/or Out of Bed No REE-([facility]-confined to bed) 1041.972 Kcal/Kg value to use for calculation 42 Approximate Energy Requirements Using 1596 kcal/Kg Calculation Used for Recommendations Kcal/kg Additional Notes PRO: 46-57g/day (1.2-1.5g/kg) Fluid: 1 ml/kcal Nutrition Intervention Change Diet Order: Continue PPN and TF Nutrition Support: PPN at 75ml/hr: 50g fat, 80 mEq Na, 8 mEq Mg, 5 mmol phos, MVI Jevity 1.2 at 10ml/hr. Water flush of 50 q4h Jevity 1.2 at 50ml/hr. Water flush 120ml q4hr once advanced Kcal 1,441 Protein (gm) 70 Carbohydrates (gm) 166 Fat (gm) 59 Fluid (mL) 1,994 Goal #1 Meet needs as best as possible via PPN and TF Goal #2 Advance TF when medically feasible Anticipated Discharge Needs: TF Follow-Up By: 02/01/19 Additional Comments Labs in AM: BMP, Mg, Phos. F/U for TF tolerance
[2019-01-31] MEDS ORDERED: FAT EMULSIONS 20% 250 ML IV SCH (20:00)
[2019-01-31] MEDS ORDERED: TOTAL PARENTERAL NUTRITION 1,800 ML IV SCH (20:00)
[2019-01-31] MEDS: HALOPERIDOL 5 MG TAB PO SCH (22:10)
[2019-01-31] MEDS: QUEtiapine 200 MG TAB PO SCH (22:10)
[2019-01-31 22:51] LABS: Basophils % (Auto) 0.4 % (0.0-1.8); Eosinophils % (Auto) 0.2 % (0.0-4.3); Hemoglobin 8.6 gm/dl (10.1-14.3); Lymphocytes # (Auto) 0.6 K/mm3 (1.2-5.4); Lymphocytes % (Auto) 9.7 % (13.4-35.0); Mean Corpuscular HGB Conc 34 % (30-34); Mean Corpuscular Volume 91 fl (79-97); Monocytes # (Auto) 0.3 K/mm3 (0.0-0.8); Monocytes % (Auto) 4.4 % (0.0-7.3); Platelet Count 478 K/mm3 (140-440); Red Blood Count 2.76 M/mm3 (3.65-5.03); Red Cell Distribution Width 13.7 % (13.2-15.2)
[2019-01-31 23:09] LABS: Alanine Aminotransferase 85 units/L (7-56); Albumin 2.2 g/dL (3.9-5); BUN/Creatinine Ratio 107; Blood Urea Nitrogen 32 mg/dL (7-17); Calcium 8.4 mg/dL (8.4-10.2); Hemolysis Index 4
[2019-02-01] MEDS: IPRATROPIUM/ALBUTEROL SULFATE 3 ML AMPUL.NEB IH SCH ×4 (03:02→20:25)
[2019-02-01 06:13] LABS: BUN/Creatinine Ratio 90; Blood Urea Nitrogen 27 mg/dL (7-17); Calcium 8.1 mg/dL (8.4-10.2); Hemolysis Index 5
--- NOTE | 2019-02-01 08:49 | XRay Report ---
CHEST 1 VIEW INDICATION: patient running fever, H/O respiratory failure.. COMPARISON: 01/19/2019 FINDINGS: Support devices: None. Heart: Within normal limits. Lungs/Pleura: There is poor inspiratory effort. Moderate airspace opacity has developed at the left l trino base concerning for pneumonia or large areas of atelectasis. The right lung is clear. No large pl eural effusion or pneumothorax. Additional findings: None. IMPRESSION: Poor inspiration. Probable left lung infiltrate. Signer Name: Víctor Bai Jr, MD Signed: 02/01/2019 8:45 AM Workstation Name: [id number]
--- NOTE | 2019-02-01 09:31 | Progress Note ---
Assessment and Plan - Patient Problems (1) Foreign body alimentary tract Current Visit: Yes Status: Acute Qualifiers: Encounter type: initial encounter Qualified Code(s): T18.9XXA - Foreign body of alimentary tract, part unspecified, initial encounter Plan to address problem: Pt stable. s/p foreign body removal from cecum and Gastro-Jejunal feeding tube placement - 01/27 - POD#5. No apparent complications. Will advance TF to goal. Discussed with nurse. Rec: 1) Stop LIS on G-port and cont q4h residual checks 2) Advance tube feeds as tolerated to goal today. Once she has tolerated tube feeds at goal for 24hrs, then may begin discharge preparations. 3) Begin bowel regimen today Please call with questions. Subjective Date of service: 02/01/19 Patient Reports: Positive: no new complaints, no bowel movement, other (Spoke with nurse. No events o/n. Appears to be tolerating trickle feeds) Objective Vital Signs - 12hr 02/01/19 02/01/19 02:32 07:39 Temperature 97.6 F 98.8 F Pulse Rate 106 H 98 H Respiratory 18 18 Rate Blood Pressure 114/69 124/86 O2 Sat by Pulse 100 99 Oximetry - General physical appearance no distress, no pain - Respiratory normal expansion, normal respiratory effort - Abdomen soft, distended (mild (baseline)), not guarding, not rigid, surgical scars (C/D/I) - Integumentary no rash, no growths, no abnormal pigmentation - Labs 01/31/19 21:06 02/01/19 04:56 Diabetes panel 01/31/19 02/01/19 Range/Units 21:06 04:56 Sodium 140 137 (137-145) mmol/L Potassium 4.0 3.8 (3.6-5.0) mmol/L Chloride 101.2 102.7 (98-107) mmol/L Carbon Dioxide 24 27 (22-30) mmol/L BUN 32 H 27 H (7-17) mg/dL Creatinine 0.3 L 0.3 L (0.7-1.2) mg/dL Glucose 122 H 117 H (65-100) mg/dL Calcium 8.4 8.1 L (8.4-10.2) mg/dL AST 77 H (5-40) units/L ALT 85 H (7-56) units/L Alkaline Phosphatase 72 (35-129) units/L Total Protein 5.3 L (6.3-8.2) g/dL Albumin 2.2 L (3.9-5) g/dL Calcium panel 01/31/19 02/01/19 Range/Units 21:06 04:56 Calcium 8.4 8.1 L (8.4-10.2) mg/dL Phosphorus 3.10 D (2.5-4.5) mg/dL Albumin 2.2 L (3.9-5) g/dL Pituitary panel 01/31/19 02/01/19 Range/Units 21:06 04:56 Sodium 140 137 (137-145) mmol/L Potassium 4.0 3.8 (3.6-5.0) mmol/L Chloride 101.2 102.7 (98-107) mmol/L Carbon Dioxide 24 27 (22-30) mmol/L BUN 32 H 27 H (7-17) mg/dL Creatinine 0.3 L 0.3 L (0.7-1.2) mg/dL Glucose 122 H 117 H (65-100) mg/dL Calcium 8.4 8.1 L (8.4-10.2) mg/dL Adrenal panel 01/31/19 02/01/19 Range/Units 21: 04:56 Sodium 140 137 (137-145) mmol/L Potassium 4.0 3.8 (3.6-5.0) mmol/L Chloride 101.2 102.7 (98-107) mmol/L Carbon Dioxide 24 27 (22-30) mmol/L BUN 32 H 27 H (7-17) mg/dL Creatinine 0.3 L 0.3 L (0.7-1.2) mg/dL Glucose 122 H 117 H (65-100) mg/dL Calcium 8.4 8.1 L (8.4-10.2) mg/dL Total Bilirubin 0.20 (0.1-1.2) mg/dL AST 77 H (5-40) units/L ALT 85 H (7-56) units/L Alkaline Phosphatase 72 (35-129) units/L Total Protein 5.3 L (6.3-8.2) g/dL Albumin 2.2 L (3.9-5) g/dL
[2019-02-01] MEDS: HEPARIN 5,000 UNIT/1 ML VIAL SUB-Q SCH ×2 (11:22→22:08)
[2019-02-01] MEDS: LORazepam 1 MG TAB PO SCH ×2 (11:22→21:24)
[2019-02-01] MEDS: POLYETHYLENE GLYCOL 3350 17 GM POWDER FEEDTUBE SCH (11:22)
[2019-02-01] MEDS: SENNOSIDES ORAL LIQD 8.8 MG/5 ML ORAL LIQD FEEDTUBE SCH ×2 (11:22→21:25)
--- NOTE | 2019-02-01 11:27 | Progress Note ---
Assessment and Plan Acute Hypoxemic and Hypercapnic Respiratory failure s/p extubation Anemia (Normocytic) Acute Encephalopathy( improving) Cerebral palsy Fecal impaction( resolved) Moderate- severe protein calorie malnutrition Oropharyngeal dysphagia s/p PEG -Continue PEG tube feedings, once at goal stop TPN -NIPPV qhs and prn -Aspiration precautions, HOB >40% -Continue with mobility and off loading for pressure ulcer prevention -wean supplemental oxygen for O2 sats>90% -prn CXR and ABG -Maintenance of sleep -wake cycle -Avoid delirium -continue bronchodilators with pulmonary hygiene per RT - continue agitation management / Pain management per CPOT - continue to follow clinically off antibiotics - continue VTE prophylaxis - continue accuchecks with glycemic control for SSI (While critically ill target blood glucose of 140-180 mg/dL; avoid hypoglycemia) - Continue mobility protocol for pressure ulcer prevention - Monitor electrolyte profile closely and replete as indicated - continue other care per attending / other consultants Updated sister at the bedside Discharge planning CONDITION: FAIR PROGNOSIS: FAIR CODE STATUS: FULL CODE Subjective Date of service: 02/01/19 Principal diagnosis: Ac Hypoxemic and Hypercapnic Resp failure; Anemia; Cerebral palsy Interval history: Patient is seen today for: Acute Hypoxemic and Hypercapnic Respiratory failure; Anemia; Acute Encephalopathy; Cerebral palsy; Fecal impaction Seen and examined at bedside; 24hour events reviewed; nursing and respiratory care staff consulted; no adverse overnight events reported to me; resting in bed; on supplemental oxygen. Failed bedside swallow evaluation by BOBBIN MARKER and MBS, no fevers, no vomiting, tolerating tube feeding via PEG tube, remains on TPN Vitals, labs, medications, chart reviewed Sister at the bedside, wants to know if we will repeat MBS prior to discharge Objective Vital Signs - 12hr 02/01/19 02/01/19 02:32 07:39 Temperature 97.6 F 98.8 F Pulse Rate 106 H 98 H Respiratory 18 18 Rate Blood Pressure 114/69 124/86 O2 Sat by Pulse 100 99 Oximetry Constitutional: no acute distress, alert, other (elderly petite AAF, normocephalic with normal respiratory effort at rest) Eyes: non-icteric ENT: oropharynx moist Neck: supple, no lymphadenopathy, no JVD Effort: normal Ascultation: Bilateral: clear, rales, rhonchi, other (referred upper airway soun ds) Percussion: Bilateral: not dull Cardiovascular: regular rate and rhythm, other (S1,S2) Gastrointestinal: normoactive bowel sounds, soft, non-tender, non-distended, other (PEG in places) Integumentary: rash Extremities: no cyanosis, no edema, pulses normal, no ischemia or petechiae Neurologic: pupils equal and round, other (+ cognitive defect re: cerebral Palsy) Psychiatric: other (unable to assess) CBC and BMP: 01/31/19 21:06 02/03/19 04:26 ABG, PT/INR, D-dimer: ABG POC ABG pH 7.518 (7.35-7.45) H 01/20/19 16:07 POC ABG pCO2 37.5 (35-45) 01/20/19 16:07 POC ABG pO2 210 (80-105) H 01/20/19 16:07 POC ABG HCO3 30.4 (22-26 mml/L) 01/20/19 16:07 POC ABG Total CO2 32 (23-27mmol/L) 01/20/19 16:07 POC ABG O2 Sat 100 01/20/19 16:07 PT/INR, D-dimer PT 12.9 Sec. (12.2-14.9) 01/26/19 04:12 INR 0.98 (0.87-1.13) 01/26/19 04:12 D-Dimer 135.00 ng/mlDDU (0-234) 01/13/19 00:27 Abnormal lab findings: Abnormal Labs 01/13/19 01/13/19 01/13/19 00:27 00:27 00:27 WBC RBC 3.36 L Hgb Hct Plt Count Lymph % (Auto) 4.2 L [place] % (Auto) Lymph # 0.3 L Seg Neutrophils % 89.1 H Seg Neuts % (Manual) Lymphocytes % (Manual) Seg Neutrophils # Seg Neutrophils # Man Lymphocytes # (Manual) APTT POC ABG pH POC ABG pCO2 POC ABG pO2 VBG pH 7.178 L* Sodium Potassium Chloride 109.1 H Carbon Dioxide 20 L BUN 29 H Creatinine Glucose 175 H POC Glucose Lactic Acid Calcium 7.8 L Phosphorus AST ALT CK-MB (CK-2) 7.7 H CK-MB (CK-2) Rel Index 7.2 H Total Protein 6.0 L Albumin 3.3 L Ur Specific [place] 01/13/19 01/13/19 01/13/19 00:27 02:14 02:22 WBC RBC Hgb Hct Plt Count Lymph % (Auto) [place] % (Auto) Lymph # Seg Neutrophils % Seg Neuts % (Manual) Lymphocytes % (Manual) Seg Neutrophils # Seg Neutrophils # Man Lymphocytes # (Manual) APTT POC ABG pH 7.276 L POC ABG pCO2 49.4 H POC ABG pO2 156 H VBG pH Sodium Potassium Chloride Carbon Dioxide BUN Creatinine Glucose POC Glucose Lactic Acid 2.90 H* 0.30 L Calcium Phosphorus AST ALT CK-MB (CK-2) CK-MB (CK-2) Rel Index Total Protein Albumin Ur Specific [place] 01/13/19 01/13/19 01/14/19 02:22 02:34 05:13 WBC RBC 2.96 L Hgb 9.3 L Hct 27.4 L Plt Count Lymph % (Auto) [place] % (Auto) 11.9 H Lymph # Seg Neutrophils % Seg Neuts % (Manual) Lymphocytes % (Manual) Seg Neutrophils # Seg Neutrophils # Man Lymphocytes # (Manual) APTT 39.4 H POC ABG pH POC ABG pCO2 POC ABG pO2 VBG pH Sodium Potassium Chloride Carbon Dioxide BUN Creatinine Glucose POC Glucose Lactic Acid Calcium Phosphorus AST ALT CK-MB (CK-2) CK-MB (CK-2) Rel Index Total Protein Albumin Ur Specific [place] 1.051 H 01/14/19 01/14/19 01/15/19 05:13 06:06 04:31 WBC RBC Hgb Hct Plt Count Lymph % (Auto) [place] % (Auto) Lymph # Seg Neutrophils % Seg Neuts % (Manual) Lymphocytes % (Manual) Seg Neutrophils # Seg Neutrophils # Man Lymphocytes # (Manual) APTT POC ABG pH POC ABG pCO2 33.7 L POC ABG pO2 121 H 114 H VBG pH Sodium Potassium Chloride Carbon Dioxide 21 L BUN 22 H Creatinine 0.6 L Glucose 62 L POC Glucose Lactic Acid Calcium 8.0 L Phosphorus AST ALT CK-MB (CK-2) CK-MB (CK-2) Rel Index Total Protein Albumin Ur Specific [place] 01/15/19 01/15/19 01/16/19 08:51 10:07 02:56 WBC RBC Hgb Hct Plt Count Lymph % (Auto) [place] % (Auto) Lymph # Seg Neutrophils % Seg Neuts % (Manual) Lymphocytes % (Manual) Seg Neutrophils # Seg Neutrophils # Man Lymphocytes # (Manual) APTT POC ABG pH POC ABG pCO2 POC ABG pO2 VBG pH Sodium Potassium Chloride Carbon Dioxide BUN Creatinine Glucose POC Glucose < 40 L 158 H 142 H Lactic Acid Calcium Phosphorus AST ALT CK-MB (CK-2) CK-MB (CK-2) Rel Index Total Protein Albumin Ur Specific [place] 01/16/19 01/17/19 01/17/19 17:54 04:06 04:23 WBC RBC Hgb Hct Plt Count Lymph % (Auto) [place] % (Auto) Lymph # Seg Neutrophils % Seg Neuts % (Manual) Lymphocytes % (Manual) Seg Neutrophils # Seg Neutrophils # Man Lymphocytes # (Manual) APTT POC ABG pH POC ABG pCO2 33.7 L POC ABG pO2 VBG pH Sodium Potassium Chloride Carbon Dioxide BUN Creatinine Glucose POC Glucose 123 H 161 H Lactic Acid Calcium Phosphorus AST ALT CK-MB (CK-2) CK-MB (CK-2) Rel Index Total Protein Albumin Ur Specific [place] 01/17/19 01/18/19 01/19/19 11:20 04:34 11:55 WBC RBC Hgb Hct Plt Count Lymph % (Auto) [place] % (Auto) Lymph # Seg Neutrophils % Seg Neuts % (Manual) Lymphocytes % (Manual) Seg Neutrophils # Seg Neutrophils # Man Lymphocytes # (Manual) APTT POC ABG pH 7.498 H 7.484 H POC ABG pCO2 32.1 L POC ABG pO2 121 H 52 L VBG pH Sodium Potassium Chloride Carbon Dioxide BUN Creatinine Glucose POC Glucose Lactic Acid Calcium Phosphorus AST ALT CK-MB (CK-2) CK-MB (CK-2) Rel Index Total Protein Albumin Ur Specific [place] 01/19/19 01/20/19 01/20/19 23:45 06:30 13:22 WBC RBC Hgb Hct Plt Count Lymph % (Auto) [place] % (Auto) Lymph # Seg Neutrophils % Seg Neuts % (Manual) Lymphocytes % (Manual) Seg Neutrophils # Seg Neutrophils # Man Lymphocytes # (Manual) APTT POC ABG pH POC ABG pCO2 POC ABG pO2 VBG pH Sodium Potassium Chloride Carbon Dioxide BUN Creatinine Glucose POC Glucose 128 H 107 H 149 H Lactic Acid Calcium Phosphorus AST ALT CK-MB (CK-2) CK-MB (CK-2) Rel Index Total Protein Albumin Ur Specific [place] 01/20/19 01/20/19 01/20/19 16:07 18:11 22:53 WBC RBC Hgb Hct Plt Count Lymph % (Auto) [place] % (Auto) Lymph # Seg Neutrophils % Seg Neuts % (Manual) Lymphocytes % (Manual) Seg Neutrophils # Seg Neutrophils # Man Lymphocytes # (Manual) APTT POC ABG pH 7.518 H POC ABG pCO2 POC ABG pO2 210 H VBG pH Sodium Potassium Chloride Carbon Dioxide BUN Creatinine Glucose POC Glucose 139 H 166 H Lactic Acid Calcium Phosphorus AST ALT CK-MB (CK-2) CK-MB (CK-2) Rel Index Total Protein Albumin Ur Specific [place] 01/21/19 01/21/19 01/21/19 04:36 04:47 04:47 WBC RBC 2.89 L Hgb 8.9 L Hct 26.7 L Plt Count Lymph % (Auto) 13.0 L [place] % (Auto) 9.6 H Lymph # 0.7 L Seg Neutrophils % 77.0 H Seg Neuts % (Manual) Lymphocytes % (Manual) Seg Neutrophils # Seg Neutrophils # Man Lymphocytes # (Manual) APTT POC ABG pH POC ABG pCO2 POC ABG pO2 VBG pH Sodium 134 L Potassium Chloride 96.9 L Carbon Dioxide BUN 18 H Creatinine 0.4 L Glucose 138 H POC Glucose 138 H Lactic Acid Calcium 8.0 L Phosphorus AST 171 H ALT 102 H CK-MB (CK-2) CK-MB (CK-2) Rel Index Total Protein 5.6 L Albumin 2.2 L Ur Specific [place] 01/22/19 01/22/19 01/22/19 00:31 05:27 12:16 WBC RBC Hgb Hct Plt Count Lymph % (Auto) [place] % (Auto) Lymph # Seg Neutrophils % Seg Neuts % (Manual) Lymphocytes % (Manual) Seg Neutrophils # Seg Neutrophils # Man Lymphocytes # (Manual) APTT POC ABG pH POC ABG pCO2 POC ABG pO2 VBG pH Sodium Potassium Chloride Carbon Dioxide BUN Creatinine Glucose POC Glucose 113 H 106 H 113 H Lactic Acid Calcium Phosphorus AST ALT CK-MB (CK-2) CK-MB (CK-2) Rel Index Total Protein Albumin Ur Specific [place] 01/23/19 01/23/19 01/23/19 00:35 05:43 11:55 WBC RBC Hgb Hct Plt Count Lymph % (Auto) [place] % (Auto) Lymph # Seg Neutrophils % Seg Neuts % (Manual) Lymphocytes % (Manual) Seg Neutrophils # Seg Neutrophils # Man Lymphocytes # (Manual) APTT POC ABG pH POC ABG pCO2 POC ABG pO2 VBG pH Sodium Potassium Chloride Carbon Dioxide BUN Creatinine Glucose POC Glucose 120 H 139 H 119 H Lactic Acid Calcium Phosphorus AST ALT CK-MB (CK-2) CK-MB (CK-2) Rel Index Total Protein Albumin Ur Specific [place] 01/23/19 01/24/19 01/24/19 18:34 00:40 05:42 WBC RBC Hgb Hct Plt Count Lymph % (Auto) [place] % (Auto) Lymph # Seg Neutrophils % Seg Neuts % (Manual) Lymphocytes % (Manual) Seg Neutrophils # Seg Neutrophils # Man Lymphocytes # (Manual) APTT POC ABG pH POC ABG pCO2 POC ABG pO2 VBG pH Sodium Potassium Chloride Carbon Dioxide BUN Creatinine Glucose POC Glucose 146 H 136 H 119 H Lactic Acid Calcium Phosphorus AST ALT CK-MB (CK-2) CK-MB (CK-2) Rel Index Total Protein Albumin Ur Specific [place] 01/24/19 01/25/19 01/25/19 11:35 00:09 06:30 WBC RBC Hgb Hct Plt Count Lymph % (Auto) [place] % (Auto) Lymph # Seg Neutrophils % Seg Neuts % (Manual) Lymphocytes % (Manual) Seg Neutrophils # Seg Neutrophils # Man Lymphocytes # (Manual) APTT POC ABG pH POC ABG pCO2 POC ABG pO2 VBG pH Sodium Potassium Chloride Carbon Dioxide BUN Creatinine Glucose POC Glucose 117 H 119 H 127 H Lactic Acid Calcium Phosphorus AST ALT CK-MB (CK-2) CK-MB (CK-2) Rel Index Total Protein Albumin Ur Specific [place] 01/25/19 01/26/19 01/26/19 12:10 00:21 04:12 WBC RBC 3.05 L Hgb 9.3 L Hct 27.5 L Plt Count Lymph % (Auto) [place] % (Auto) 10.0 H Lymph # 0.9 L Seg Neutrophils % 73.9 H Seg Neuts % (Manual) Lymphocytes % (Manual) Seg Neutrophils # Seg Neutrophils # Man Lymphocytes # (Manual) APTT POC ABG pH POC ABG pCO2 POC ABG pO2 VBG pH Sodium Potassium Chloride Carbon Dioxide BUN Creatinine Glucose POC Glucose 109 H 125 H Lactic Acid Calcium Phosphorus AST ALT CK-MB (CK-2) CK-MB (CK-2) Rel Index Total Protein Albumin Ur Specific [place] 01/26/19 01/27/19 01/27/19 04:12 04:49 04:49 WBC RBC 3.11 L Hgb 9.5 L Hct 28.0 L Plt Count 477 H Lymph % (Auto) 7.4 L [place] % (Auto) Lymph # 0.8 L Seg Neutrophils % 87.7 H Seg Neuts % (Manual) Lymphocytes % (Manual) Seg Neutrophils # 9.0 H Seg Neutrophils # Man Lymphocytes # (Manual) APTT POC ABG pH POC ABG pCO2 POC ABG pO2 VBG pH Sodium 133 L 131 L Potassium 5.4 H D Chloride Carbon Dioxide 20 L BUN 26 H 28 H Creatinine 0.5 L 0.5 L Glucose POC Glucose Lactic Acid Calcium Phosphorus 4.60 H AST 161 H 82 H ALT 208 H 122 H CK-MB (CK-2) CK-MB (CK-2) Rel Index Total Protein 6.2 L Albumin 2.8 L 2.7 L Ur Specific [place] 01/28/19 01/28/19 01/28/19 04:13 04:13 06:14 WBC 14.9 H RBC 2.94 L Hgb 8.9 L Hct 26.5 L Plt Count 514 H Lymph % (Auto) [place] % (Auto) Lymph # Seg Neutrophils % Seg Neuts % (Manual) 93.0 H Lymphocytes % (Manual) 2.0 L Seg Neutrophils # Seg Neutrophils # Man 13.9 H Lymphocytes # (Manual) 0.3 L APTT POC ABG pH POC ABG pCO2 POC ABG pO2 VBG pH Sodium Potassium Chloride Carbon Dioxide 19 L BUN 42 H Creatinine 0.5 L Glucose 134 H POC Glucose 159 H Lactic Acid Calcium Phosphorus AST 91 H ALT 108 H CK-MB (CK-2) CK-MB (CK-2) Rel Index Total Protein 6.1 L Albumin 2.7 L Ur Specific [place] 01/28/19 01/28/19 01/29/19 12:43 17:49 00:13 WBC RBC Hgb Hct Plt Count Lymph % (Auto) [place] % (Auto) Lymph # Seg Neutrophils % Seg Neuts % (Manual) Lymphocytes % (Manual) Seg Neutrophils # Seg Neutrophils # Man Lymphocytes # (Manual) APTT POC ABG pH POC ABG pCO2 POC ABG pO2 VBG pH Sodium Potassium Chloride Carbon Dioxide BUN Creatinine Glucose POC Glucose 159 H 151 H 148 H Lactic Acid Calcium Phosphorus AST ALT CK-MB (CK-2) CK-MB (CK-2) Rel Index Total Protein Albumin Ur Specific [place] 01/29/19 01/29/19 01/29/19 07:00 07:43 08:47 WBC RBC Hgb Hct Plt Count Lymph % (Auto) [place] % (Auto) Lymph # Seg Neutrophils % Seg Neuts % (Manual) Lymphocytes % (Manual) Seg Neutrophils # Seg Neutrophils # Man Lymphocytes # (Manual) APTT POC ABG pH POC ABG pCO2 POC ABG pO2 VBG pH Sodium Potassium 3.4 L Chloride Carbon Dioxide 21 L BUN 46 H Creatinine 0.3 L Glucose 117 H POC Glucose 130 H 144 H Lactic Acid Calcium Phosphorus AST ALT CK-MB (CK-2) CK-MB (CK-2) Rel Index Total Protein Albumin Ur Specific [place] 01/29/19 01/29/19 01/30/19 11:31 16:21 00:33 WBC RBC Hgb Hct Plt Count Lymph % (Auto) [place] % (Auto) Lymph # Seg Neutrophils % Seg Neuts % (Manual) Lymphocytes % (Manual) Seg Neutrophils # Seg Neutrophils # Man Lymphocytes # (Manual) APTT POC ABG pH POC ABG pCO2 POC ABG pO2 VBG pH Sodium Potassium Chloride Carbon Dioxide BUN Creatinine Glucose POC Glucose 133 H 138 H 159 H Lactic Acid Calcium Phosphorus AST ALT CK-MB (CK-2) CK-MB (CK-2) Rel Index Total Protein Albumin Ur Specific [place] 01/30/19 01/30/19 01/30/19 04:13 06:04 07:34 WBC RBC Hgb Hct Plt Count Lymph % (Auto) [place] % (Auto) Lymph # Seg Neutrophils % Seg Neuts % (Manual) Lymphocytes % (Manual) Seg Neutrophils # Seg Neutrophils # Man Lymphocytes # (Manual) APTT POC ABG pH POC ABG pCO2 POC ABG pO2 VBG pH Sodium Potassium 3.3 L Chloride Carbon Dioxide BUN 34 H Creatinine 0.3 L Glucose 156 H POC Glucose 136 H 130 H Lactic Acid Calcium Phosphorus AST ALT CK-MB (CK-2) CK-MB (CK-2) Rel Index Total Protein Albumin Ur Specific [place] 01/30/19 01/30/19 01/31/19 12:36 18:55 05:16 WBC RBC Hgb Hct Plt Count Lymph % (Auto) [place] % (Auto) Lymph # Seg Neutrophils % Seg Neuts % (Manual) Lymphocytes % (Manual) Seg Neutrophils # Seg Neutrophils # Man Lymphocytes # (Manual) APTT POC ABG pH POC ABG pCO2 POC ABG pO2 VBG pH Sodium Potassium Chloride Carbon Dioxide BUN 29 H Creatinine 0.3 L Glucose 129 H POC Glucose 134 H 114 H Lactic Acid Calcium Phosphorus AST ALT CK-MB (CK-2) CK-MB (CK-2) Rel Index Total Protein Albumin Ur Specific [place] 01/31/19 01/31/19 01/31/19 11:32 16:58 21:06 WBC RBC 2.76 L Hgb 8.6 L Hct 25.0 L Plt Count 478 H Lymph % (Auto) 9.7 L [place] % (Auto) Lymph # 0.6 L Seg Neutrophils % 85.3 H Seg Neuts % (Manual) Lymphocytes % (Manual) Seg Neutrophils # Seg Neutrophils # Man Lymphocytes # (Manual) APTT POC ABG pH POC ABG pCO2 POC ABG pO2 VBG pH Sodium Potassium Chloride Carbon Dioxide BUN Creatinine Glucose POC Glucose 127 H 141 H Lactic Acid Calcium Phosphorus AST ALT CK-MB (CK-2) CK-MB (CK-2) Rel Index Total Protein Albumin Ur Specific [place] 01/31/19 02/01/19 02/01/19 21:06 00:22 04:56 WBC RBC Hgb Hct Plt Count Lymph % (Auto) [place] % (Auto) Lymph # Seg Neutrophils % Seg Neuts % (Manual) Lymphocytes % (Manual) Seg Neutrophils # Seg Neutrophils # Man Lymphocytes # (Manual) APTT POC ABG pH POC ABG pCO2 POC ABG pO2 VBG pH Sodium Potassium Chloride Carbon Dioxide BUN 32 H 27 H Creatinine 0.3 L 0.3 L Glucose 122 H 117 H POC Glucose 133 H Lactic Acid Calcium 8.1 L Phosphorus AST 77 H ALT 85 H CK-MB (CK-2) CK-MB (CK-2) Rel Index Total Protein 5.3 L Albumin 2.2 L Ur Specific [place] 02/01/19 06:35 WBC RBC Hgb Hct Plt Count Lymph % (Auto) [place] % (Auto) Lymph # Seg Neutrophils % Seg Neuts % (Manual) Lymphocytes % (Manual) Seg Neutrophils # Seg Neutrophils # Man Lymphocytes # (Manual) APTT POC ABG pH POC ABG pCO2 POC ABG pO2 VBG pH Sodium Potassium Chloride Carbon Dioxide BUN Creatinine Glucose POC Glucose 112 H Lactic Acid Calcium Phosphorus AST ALT CK-MB (CK-2) CK-MB (CK-2) Rel Index Total Protein Albumin Ur Specific [place] Allied health notes reviewed: nursing
--- NOTE | 2019-02-01 15:47 | Progress Note ---
Assessment and Plan Assessment and plan: Patient is a 68-year-old woman with a history of cerebral palsy, mental retardation, unspecified mental disorder and chronic constipation who presented to [facility] ED on 01/12/19 with SOB, respiratory distress, constipation and increasing swelling of the abdomen. Patient's sister Angelique Meza is her caregiver/roommate noticed that patient abdomen was more distended than usual. It was discovered thru collateral history from Ms. Meza that patient has a well-established history of Pica-like behavior. Pt had a PEG tube placed 15 years ago but she pulled out. Since then she has been able to eat without any difficulties until recently. Patient went to the bathroom and had a large hard bowel movement followed by an acute episode of severe shortness of breath and respiratory distress. Upon arrival to the ED, patient was on 100% O2 NRB mask with agonal respirations. She was confused and unresponsive; therefore, she was intubated via ETT. Abdomen was noted to be hard and distended. Of note, Patient's only previous abdominal surgical history was the PEG tube placement which is no longer present. CT of the abdomen shows fecal impaction. She was admitted to ICU. She was extubated on 01/18/19. However, the abdominal distension persisted after multiple bowel treatments, the fecal impaction was felt to be resolved. Nonetheless, she failed her swallow study and was subsequently set up for PEG tube placement by GI. Then on 01/26/[address] Bruce found foreign bodies (pieces of plastic) in the stomach. Dr. Bruce felt they may be contributing to her bowel issues. He was unable to remove them due to the large size. Therefore, he requested general surgery consult. Then on 01/27/19, She underwent exploratory laparatomy and plastic glove was found in the cecum.. It was removed and Gastro-Jejunostomy tube was place. She was started on PPN and re-feeding via tube feeding has been very gradual. 01/26/2019 EGD with attempted foreign body removal Pre-op diagnosis: Neurogenic Dysphagia Post-op diagnosis: other (Foreign Body Stomach) Findings: 1. Large pieces of plastic in stomach; unable to remove through GE junction despite rat tooth forceps, snare, or Gunn net, 2. Able to traverse pylorus (once plastic pushed to side), 3. Small hiatal hernia, 4. LA Grade A esophagitis Date of procedure: 01/27/19 (dictation: [id number]) Pre-op diagnosis: foreign body ingestion Post-op diagnosis: same Findings: plastic glove found in cecum. Procedure: Ex Lap, Gastro-Jejunostomy tube placement, removal of foreign body from cecum Diagnoses: Acute combined respiratory failure s/p MV > 96 hours; stable on nasal canula Dyphagia and Foreign body removal s/p Ex-lap: General Surgery following SBO/ileus: TPN ,monitor electrolytes Acute metabolic encephalopathy as above Hyperkalemia; monitor bmp closely calcium chloride Transaminitis; Monitor LFTs closely, consult GI if needed Cerebral palsy history of cerebral palsy. Fecal impaction: Resolved, stool softeners as needed. Severe malnutrition, bmi 15.3: [place] following DVT prophylaxis On Heparin SQ. Disposition: subacute rehab. States that patient was able to walk unassisted prior to this event D/W sister Angelique Meza History Interval history: Patient was seen and examined. Follow-up on current diagnosis. No overnight events reported to me. Not cooperative today. Nonverbal. Imaging, nursing note, chart, labs and old chart reviewed. Hospitalist Physical - Physical exam Narrative exam: Gen: cachetic, bmi 15.3, nonverbal CVS/Heart: Regular tachycardia, normal S1S2, pulses present bilaterally Chest/Lungs: Symmetrical chest expansion, good air entry bilaterally GI/Abdomen: soft, binder in place /Bladder: no suprapubic tenderness, no CVA or paraspinal tenderness Extermity/Skin: atrophic limbs MSK: contracted limbs Neuro: CN 2-12 grossly intact, doesn't follow commands Psych: calm but confused - Constitutional Vitals: Temp Pulse Resp BP Pulse Ox 98.8 F 98 H 18 124/86 99 02/01/19 07:39 02/01/19 07:39 02/01/19 07:39 02/01/19 07:39 02/01/19 07:39 General appearance: Present: no acute distress. Absent: well-nourished Results - Labs CBC & Chem 7: 01/31/19 21:06 02/01/19 04:56 Labs: Laboratory Last Values WBC 6.0 K/mm3 (4.5-11.0) 01/31/19 21:06 RBC 2.76 M/mm3 (3.65-5.03) L 01/31/19 21:06 Hgb 8.6 gm/dl (10.1-14.3) L 01/31/19 21:06 Hct 25.0 % (30.3-42.9) L 01/31/19 21:06 MCV 91 fl (79-97) 01/31/19 21:06 MCH 31 pg (28-32) 01/31/19 21:06 MCHC 34 % (30-34) 01/31/19 21:06 RDW 13.7 % (13.2-15.2) 01/31/19 21:06 Plt Count 478 K/mm3 (140-440) H 01/31/19 21:06 Lymph % (Auto) 9.7 % (13.4-35.0) L 01/31/19 21:06 [place] % (Auto) 4.4 % (0.0-7.3) 01/31/19 21:06 Eos % (Auto) 0.2 % (0.0-4.3) 01/31/19 21:06 Baso % (Auto) 0.4 % (0.0-1.8) 01/31/19 21:06 Lymph # 0.6 K/mm3 (1.2-5.4) L 01/31/19 21:06 [place] # 0.3 K/mm3 (0.0-0.8) 01/31/19 21:06 Eos # 0.0 K/mm3 (0.0-0.4) 01/31/19 21:06 Baso # 0.0 K/mm3 (0.0-0.1) 01/31/19 21:06 Add Manual Diff Complete 01/28/19 04:13 Total Counted 100 01/28/19 04:13 Seg Neutrophils % 85.3 % (40.0-70.0) H 01/31/19 21:06 Seg Neuts % (Manual) 93.0 % (40.0-70.0) H 01/28/19 04:13 Band Neutrophils % 2.0 % 01/28/19 04:13 Lymphocytes % (Manual) 2.0 % (13.4-35.0) L 01/28/19 04:13 Reactive Lymphs % (Man) 0 % 01/28/19 04:13 Monocytes % (Manual) 3.0 % (0.0-7.3) 01/28/19 04:13 Eosinophils % (Manual) 0 % (0.0-4.3) 01/28/19 04:13 Basophils % (Manual) 0 % (0.0-1.8) 01/28/19 04:13 Metamyelocytes % 0 % 01/28/19 04:13 Myelocytes % 0 % 01/28/19 04:13 Promyelocytes % 0 % 01/28/19 04:13 Blast Cells % 0 % 01/28/19 04:13 Nucleated RBC % Not Reportable 01/28/19 04:13 Seg Neutrophils # 5.1 K/mm3 (1.8-7.7) 01/31/19 21:06 Seg Neutrophils # Man 13.9 K/mm3 (1.8-7.7) H 01/28/19 04:13 Band Neutrophils # 0.3 K/mm3 01/28/19 04:13 Lymphocytes # (Manual) 0.3 K/mm3 (1.2-5.4) L 01/28/19 04:13 Abs React Lymphs (Man) 0.0 K/mm3 01/28/19 04:13 Monocytes # (Manual) 0.4 K/mm3 (0.0-0.8) 01/28/19 04:13 Eosinophils # (Manual) 0.0 K/mm3 (0.0-0.4) 01/28/19 04:13 Basophils # (Manual) 0.0 K/mm3 (0.0-0.1) 01/28/19 04:13 Metamyelocytes # 0.0 K/mm3 01/28/19 04:13 Myelocytes # 0.0 K/mm3 01/28/19 04:13 Promyelocytes # 0.0 K/mm3 01/28/19 04:13 Blast Cells # 0.0 K/mm3 01/28/19 04:13 WBC Morphology Not Reportable 01/28/19 04:13 Hypersegmented Neuts Not Reportable 01/28/19 04:13 Hyposegmented Neuts Not Reportable 01/28/19 04:13 Hypogranular Neuts Not Reportable 01/28/19 04:13 Smudge Cells Not Reportable 01/28/19 04:13 Toxic Granulation Not Reportable 01/28/19 04:13 Toxic Vacuolation Not Reportable 01/28/19 04:13 Dohle Bodies Not Reportable 01/28/19 04:13 Pelger-Huet Anomaly Not Reportable 01/28/19 04:13 Shivani Rods Not Reportable 01/28/19 04:13 Platelet Estimate Consistent w auto 01/28/19 04:13 Clumped Platelets Not Reportable 01/28/19 04:13 Plt Clumps, EDTA Not Reportable 01/28/19 04:13 Large Platelets Not Reportable 01/28/19 04:13 Giant Platelets Not Reportable 01/28/19 04:13 Platelet Satelliting Not Reportable 01/28/19 04:13 Plt Morphology Comment Not Reportable 01/28/19 04:13 RBC Morphology Not Reportable 01/28/19 04:13 Dimorphic RBCs Not Reportable 01/28/19 04:13 Polychromasia Not Reportable 01/28/19 04:13 Hypochromasia Not Reportable 01/28/19 04:13 Poikilocytosis Not Reportable 01/28/19 04:13 Anisocytosis 1+ 01/28/19 04:13 Microcytosis Not Reportable 01/28/19 04:13 Macrocytosis Not Reportable 01/28/19 04:13 Spherocytes Not Reportable 01/28/19 04:13 Pappenheimer Bodies Not Reportable 01/28/19 04:13 Sickle Cells Not Reportable 01/28/19 04:13 Target Cells Not Reportable 01/28/19 04:13 Tear Drop Cells Not Reportable 01/28/19 04:13 Ovalocytes Not Reportable 01/28/19 04:13 Helmet Cells Not Reportable 01/28/19 04:13 [place] Bodies Not Reportable 01/28/19 04:13 [place] Rings Not Reportable 01/28/19 04:13 St[place] Cells Not Reportable 01/28/19 04:13 Bite Cells Not Reportable 01/28/19 04:13 Crenated Cell Not Reportable 01/28/19 04:13 Elliptocytes Not Reportable 01/28/19 04:13 Acanthocytes (Spur) Not Reportable 01/28/19 04:13 Rouleaux Not Reportable 01/28/19 04:13 Hemoglobin C Crystals Not Reportable 01/28/19 04:13 Schistocytes Not Reportable 01/28/19 04:13 Malaria parasites Not Reportable 01/28/19 04:13 Sebas Bodies Not Reportable 01/28/19 04:13 Hem Pathologist Commnt No 01/28/19 04:13 PT 12.9 Sec. (12.2-14.9) 01/26/19 04:12 INR 0.98 (0.87-1.13) 01/26/19 04:12 APTT 31.9 Sec. (24.2-36.6) 01/14/19 05:13 D-Dimer 135.00 ng/mlDDU (0-234) 01/13/19 00:27 POC ABG pH 7.518 (7.35-7.45) H 01/20/19 16:07 POC ABG pCO2 37.5 (35-45) 01/20/19 16:07 POC ABG pO2 210 (80-105) H 01/20/19 16:07 POC ABG HCO3 30.4 (22-26 mml/L) 01/20/19 16:07 POC ABG Total CO2 32 (23-27mmol/L) 01/20/19 16:07 POC ABG O2 Sat 100 01/20/19 16:07 POC ABG Base Excess 8 ((-2) - (+3)mmol/L) 01/20/19 16:07 VBG pH 7.178 (7.320-7.420) L* 01/13/19 00:27 FiO2 50 % 01/20/19 16:07 Sodium 137 mmol/L (137-145) 02/01/19 04:56 Potassium 3.8 mmol/L (3.6-5.0) 02/01/19 04:56 Chloride 102.7 mmol/L (98-107) 02/01/19 04:56 Carbon Dioxide 27 mmol/L (22-30) 02/01/19 04:56 Anion Gap 11 mmol/L 02/01/19 04:56 BUN 27 mg/dL (7-17) H 02/01/19 04:56 Creatinine 0.3 mg/dL (0.7-1.2) L 02/01/19 04:56 Estimated GFR > 60 ml/min 02/01/19 04:56 BUN/Creatinine Ratio 90 % 02/01/19 04:56 Glucose 117 mg/dL (65-100) H 02/01/19 04:56 POC Glucose 139 (70-105) H 02/01/19 11:54 Lactic Acid 0.30 mmol/L (0.7-2.0) L 01/13/19 02:22 Calcium 8.1 mg/dL (8.4-10.2) L 02/01/19 04:56 Phosphorus 3.10 mg/dL (2.5-4.5) D 02/01/19 04:56 Magnesium 2.10 mg/dL (1.7-2.3) 02/01/19 04:56 Total Bilirubin 0.20 mg/dL (0.1-1.2) 01/31/19 21:06 AST 77 units/L (5-40) H 01/31/19 21:06 ALT 85 units/L (7-56) H 01/31/19 21:06 Alkaline Phosphatase 72 units/L (35-129) 01/31/19 21:06 Ammonia 25.0 umol/L (25-60) 01/13/19 00:27 Total Creatine Kinase 106 units/L (30-135) 01/13/19 00:27 CK-MB (CK-2) 7.7 ng/mL (0.0-4.0) H 01/13/19 00:27 CK-MB (CK-2) Rel Index 7.2 (0-4) H 01/13/19 00:27 Troponin T < 0.010 ng/mL (0.00-0.029) 01/13/19 00:27 NT-Pro-B Natriuret Pep 52.36 pg/mL (0-900) 01/13/19 00:27 Total Protein 5.3 g/dL (6.3-8.2) L 01/31/19 21:06 Albumin 2.2 g/dL (3.9-5) L 01/31/19 21:06 Albumin/Globulin Ratio 0.7 % 01/31/19 21:06 Urine Color Yellow (Yellow) 01/13/19 02:34 Urine Turbidity Slightly-cloudy (Clear) 01/13/19 02:34 Urine pH 5.0 (5.0-7.0) 01/13/19 02:34 Ur Specific [place] 1.051 (1.003-1.030) H 01/13/19 02:34 Urine Protein <15 mg/dl mg/dL (Negative) 01/13/19 02:34 Urine Glucose (UA) 50 mg/dL (Negative) 01/13/19 02:34 Urine Ketones Neg mg/dL (Negative) 01/13/19 02:34 Urine Blood Neg (Negative) 01/13/19 02:34 Urine Nitrite Neg (Negative) 01/13/19 02:34 Urine Bilirubin Neg (Negative) 01/13/19 02:34 Urine Urobilinogen < 2.0 mg/dL (<2.0) 01/13/19 02:34 Ur Leukocyte Esterase Neg (Negative) 01/13/19 02:34 Urine WBC (Auto) < 1.0 /HPF (0.0-6.0) 01/13/19 02:34 Urine RBC (Auto) < 1.0 /HPF (0.0-6.0) 01/13/19 02:34 U Epithel Cells (Auto) < 1.0 /HPF (0-13.0) 01/13/19 02:34 Urine Bacteria (Auto) 1+ /HPF (Negative) 01/13/19 02:34 Urine Mucus 1+ /HPF 01/13/19 02:34 Blood Type O POSITIVE 01/27/19 16:00 Antibody Screen Negative 01/27/19 16:00 Active Medications - Current Medications Current Medications: Generic Name Dose Route Start Last Admin Trade Name Freq PRN Reason Stop Dose Admin Acetaminophen 650 mg 01/13/19 04:55 Tylenol NE Q6H PRN Pain MILD(1-3)/Fever >100.5/WOOD Albuterol/Ipratropium 1 ampul 01/22/19 14:00 02/01/19 14:47 Duoneb *Not For Prn Use* IH 1 ampul Q6HRT JOAN Administration Lipase/Protease/Amylase 1 each 01/31/19 09:41 Pancrenicolasa Schwartz 10,500 Unit FEEDTUBE PRN PRN For Clogged Feeding Tube Bisacodyl 10 mg 01/13/19 04:55 01/16/19 11:30 Dulcolax NE 10 mg QDAY PRN Administration constipation unrelieved by MOM Dextrose 25 ml 01/15/19 08:51 01/15/19 09:00 D50w (25gm) Syringe IV 25 ml Q30MIN PRN Administration Hypoglycemia Protocol Haloperidol 5 mg 01/15/19 22:00 01/31/19 22:10 Haldol PO 5 mg QHS JOAN Administration Heparin Sodium (Porcine) 5,000 unit 01/15/19 22:00 02/01/19 11:22 Heparin SUB-Q 5,000 unit Q12HR JOAN Administration Hydralazine HCl 10 mg 01/18/19 18:48 01/18/19 19:36 Apresoline IV 10 mg Q3HR PRN Administration SBP >/=160 Hydrophilic Ointment 1 applic 01/12/19 23:54 Vaseline Lip Therapy TP Q2HR PRN Dry Lips Amino Acids/Electrolytes/Dextrose 1,800 mls @ 75 mls/hr 01/31/19 20:00 01/31/19 19:48 Tpn Adult IV 02/01/19 19:59 75 mls/hr DAILY@1999 JOAN Administration Protocol Amino Acids/Electrolytes/Dextrose 1,800 mls @ 75 mls/hr 02/01/19 20:00 Tpn Adult IV 02/02/19 19:59 DAILY@1999 [facility] Protocol Lorazepam 1 mg 01/20/19 22:00 02/01/19 11:22 Ativan PO 1 mg BID JOAN Administration Multi-Ingred Cream/Lotion/Oil/Oint 1 applic 01/12/19 23:54 Artificial Tears Ophth Oint OU Q4HR PRN Dry Eye(s) Ondansetron HCl 4 mg 01/13/19 04:55 Zofran IV Q8H PRN Nausea And Vomiting Polyethylene Glycol 17 gm 02/01/19 10:00 02/01/19 11:22 Miralax 3350 FEEDTUBE 17 gm QDAY JOAN Administration Quetiapine Fumarate 400 mg 01/22/19 22:00 01/31/19 22:10 Seroquel PO 400 mg QHS JOAN Administration Senna 17.6 mg 02/01/19 10:00 02/01/19 11:22 Senokot FEEDTUBE 17.6 mg Q12HR JOAN Administration Simple Syrup 15 ml 01/31/19 09:41 Simple Syrup FEEDTUBE PRN PRN Hypoglycemia Simple Syrup 30 ml 01/31/19 09:41 Simple Syrup FEEDTUBE PRN PRN Hypoglycemia Sodium Bicarbonate 325 mg 01/31/19 09:41 Sodium Bicarbonate FEEDTUBE PRN PRN For Clogged Feeding Tube Sodium Chloride 10 ml 01/13/19 10:00 02/01/19 11:22 Sodium Chloride Flush Syringe 10 Ml IV 10 ml BID JOAN Administration Sodium Chloride 10 ml 01/13/19 04:55 01/26/19 17:15 Sodium Chloride Flush Syringe 10 Ml IV 10 ml PRN PRN Administration LINE FLUSH Nutrition/Malnutrition Assess - Dietary Evaluation Nutrition/Malnutrition Findings: Nutrition Notes Start: 01/13/19 12:10 Freq: Status: Active Protocol: Document 02/01/19 10:02 ANGELIKA (Rec: 02/01/19 10:46 ANGELIKA [id number]) Co-Sign 02/01/19 10:02 LP Nutrition Notes Initial or Follow up Reassessment Current Diagnosis Respiratory Failure Other Pertinent Diagnosis Cerebral palsy, Seizure, fecal impaction, dehydration Current Diet PPN at 75 ml/hr and Jevity at 10ml/hr Labs/Tests BUN 27 Cr 0.3 BG 117 Pertinent Medications Reviewed Height 5 ft 2 in Weight 38 kg [place] Body Weight (kg) 50.00 BMI 15.3 Weight Status Underweight Subjective/Other Information PPN day 6. Per chart MD wants to advance to goal rate today. MD wants to continue TF and PPN for now. Percent of energy/protein needs met: 90%/100% Burn Absent Trauma Absent GI Symptoms None Current % PO Negligible Minimum of two criteria Yes Interpretation of Weight Loss (non- 7.5% in 3 months severe) Body Fat Depletion Moderate depletion (severe) Muscle Mass Moderate Depletion (severe) #2 Nutrition Diagnosis Malnutrition Diagnosis Progress(for reassessment Continues documentation) #1 Nutrition Diagnosis Inadequate oral intake Diagnosis Progress(for reassessment Continues documentation) Is patient on ventilator? No Is Patient Ambulatory and/or Out of Bed No REE-([facility]-confined to bed) 1041.972 Kcal/Kg value to use for calculation 42 Approximate Energy Requirements Using 1596 kcal/Kg Calculation Used for Recommendations Kcal/kg Additional Notes PRO: 46-57g/day (1.2-1.5g/kg) Fluid: 1 ml/kcal Nutrition Intervention Change Diet Order: Continue PPN and TF Nutrition Support: PPN at 75ml/hr: 924 mOsm, 653 kcal, 120 mEq Na, 100 mEq K, 10 mmol phos, MVI, MTE Jevity 1.2 at 50ml/hr. Water flush 120ml q4hr once advanced Kcal 2,093 Protein (gm) 123 Carbohydrates (gm) 203 Fat (gm) 47 Fluid (mL) 2,769 Goal #1 Meet needs as best as possible via PPN and TF Goal #2 Advance TF to goal rate Anticipated Discharge Needs: TF Follow-Up By: 02/02/19 Additional Comments Labs in AM: BMP, Mg, Phos. F/U for TF tolerance
[2019-02-01] MEDS: ACETAMINOPHEN 650 MG RECT SUPP PR PRN (17:52)
[2019-02-01] MEDS ORDERED: TOTAL PARENTERAL NUTRITION 1,800 ML IV SCH (20:00)
[2019-02-01] MEDS: QUEtiapine 200 MG TAB PO SCH (21:24)
[2019-02-01] MEDS: HALOPERIDOL 5 MG TAB PO SCH (21:24)
[2019-02-02 06:08] LABS: BUN/Creatinine Ratio 80; Blood Urea Nitrogen 24 mg/dL (7-17); Calcium 8.1 mg/dL (8.4-10.2); Hemolysis Index 8
[2019-02-02] MEDS: IPRATROPIUM/ALBUTEROL SULFATE 3 ML AMPUL.NEB IH SCH ×3 (07:42→20:34)
--- NOTE | 2019-02-02 08:42 | Progress Note ---
Assessment and Plan - Patient Problems (1) Foreign body alimentary tract Current Visit: Yes Status: Acute Qualifiers: Encounter type: initial encounter Qualified Code(s): T18.9XXA - Foreign body of alimentary tract, part unspecified, initial encounter Plan to address problem: Pt stable. s/p foreign body removal from cecum and Gastro-Jejunal feeding tube placement - 01/27 - POD#6. No apparent complications. Will advance TF to goal. (50cc/hr) I believe she has chronic bowel dysfunction which causes her to have persistent bowel distention. Hopefully the bowel regimen will a help a little. Not sure what to make of this elevated HR. She clinically appears no different than in previous days. TF intolerance? Some other issue? Will discuss with hospitalist. Discussed with nurse. Rec: 1) Stop LIS on G-port and cont q4h residual checks 2) Advance tube feeds as tolerated to goal today. Once she has tolerated tube feeds at goal for 24hrs, then may begin discharge preparations. 3) Cont bowel regimen today Please call with questions. Subjective Date of service: 02/02/19 Patient Reports: Positive: bowel movement, other (no issues last night per staff. there was no discussion about the elevated HR) Objective Vital Signs - 12hr 02/01/19 02/02/19 02/02/19 22:00 02:00 07:24 Temperature 98.6 F 98.7 F Pulse Rate 128 H 120 H Pulse Rate [ Bilateral Throughout] Respiratory 18 19 Rate Respiratory Rate [Bilateral Throughout] Blood Pressure 139/82 Blood Pressure 140/75 [Right] O2 Sat by Pulse 100 100 Oximetry 02/02/19 02/02/19 07:42 08:13 Temperature Pulse Rate Pulse Rate [ 114 H Bilateral Throughout] Respiratory Rate Respiratory 16 Rate [Bilateral Throughout] Blood Pressure Blood Pressure [Right] O2 Sat by Pulse 100 Oximetry - General physical appearance no distress, no pain - Respiratory normal expansion, normal respiratory effort - Abdomen soft, tender (no change), bowel sounds hypoactive, distended (mild - no change), not guarding, not rigid - Integumentary no rash, no growths, no abnormal pigmentation - Labs 01/31/19 21:06 02/02/19 05:01 Diabetes panel 02/02/19 Range/Units 05:01 Sodium 133 L (137-145) mmol/L Potassium 4.8 D (3.6-5.0) mmol/L Chloride 98.2 (98-107) mmol/L Carbon Dioxide 22 (22-30) mmol/L BUN 24 H (7-17) mg/dL Creatinine 0.3 L (0.7-1.2) mg/dL Glucose 130 H (65-100) mg/dL Calcium 8.1 L (8.4-10.2) mg/dL Calcium panel 02/02/19 Range/Units 05:01 Calcium 8.1 L (8.4-10.2) mg/dL Phosphorus 3.40 (2.5-4.5) mg/dL Pituitary panel 02/02/19 Range/Units 05:01 Sodium 133 L (137-145) mmol/L Potassium 4.8 D (3.6-5.0) mmol/L Chloride 98.2 (98-107) mmol/L Carbon Dioxide 22 (22-30) mmol/L BUN 24 H (7-17) mg/dL Creatinine 0.3 L (0.7-1.2) mg/dL Glucose 130 H (65-100) mg/dL Calcium 8.1 L (8.4-10.2) mg/dL Adrenal panel 02/02/19 Range/Units 05:01 Sodium 133 L (137-145) mmol/L Potassium 4.8 D (3.6-5.0) mmol/L Chloride 98.2 (98-107) mmol/L Carbon Dioxide 22 (22-30) mmol/L BUN 24 H (7-17) mg/dL Creatinine 0.3 L (0.7-1.2) mg/dL Glucose 130 H (65-100) mg/dL Calcium 8.1 L (8.4-10.2) mg/dL
[2019-02-02] MEDS: POLYETHYLENE GLYCOL 3350 17 GM POWDER FEEDTUBE SCH (09:55)
[2019-02-02] MEDS: LORazepam 1 MG TAB PO SCH ×2 (09:55→22:00)
[2019-02-02] MEDS: HEPARIN 5,000 UNIT/1 ML VIAL SUB-Q SCH ×2 (09:55→22:00)
[2019-02-02] MEDS: SENNOSIDES ORAL LIQD 8.8 MG/5 ML ORAL LIQD FEEDTUBE SCH ×2 (09:55→21:59)
--- NOTE | 2019-02-02 11:38 | Progress Note ---
Assessment and Plan Assessment and plan: Patient is a 68-year-old woman with a history of cerebral palsy, mental retardation, unspecified mental disorder and chronic constipation who presented to [facility] ED on 01/12/19 with SOB, respiratory distress, constipation and increasing swelling of the abdomen. Patient's sister Angelique Meza is her caregiver/roommate noticed that patient abdomen was more distended than usual. It was discovered thru collateral history from Ms. Meza that patient has a well-established history of Pica-like behavior. Pt had a PEG tube placed 15 years ago but she pulled out. Since then she has been able to eat without any difficulties until recently. Patient went to the bathroom and had a large hard bowel movement followed by an acute episode of severe shortness of breath and respiratory distress. Upon arrival to the ED, patient was on 100% O2 NRB mask with agonal respirations. She was confused and unresponsive; therefore, she was intubated via ETT. Abdomen was noted to be hard and distended. Of note, Patient's only previous abdominal surgical history was the PEG tube placement which is no longer present. CT of the abdomen shows fecal impaction. She was admitted to ICU. She was extubated on 01/18/19. However, the abdominal distension persisted after multiple bowel treatments, the fecal impaction was felt to be resolved. Nonetheless, she failed her swallow study and was subsequently set up for PEG tube placement by GI. Then on 01/26/[address] Bruce found foreign bodies (pieces of plastic) in the stomach. Dr. Bruce felt they may be contributing to her bowel issues. He was unable to remove them due to the large size. Therefore, he requested general surgery consult. Then on 01/27/19, She underwent exploratory laparatomy and plastic glove was found in the cecum.. It was removed and Gastro-Jejunostomy tube was place. She was started on PPN and re-feeding via tube feeding has been very gradual. 01/26/2019 EGD with attempted foreign body removal Pre-op diagnosis: Neurogenic Dysphagia Post-op diagnosis: other (Foreign Body Stomach) Findings: 1. Large pieces of plastic in stomach; unable to remove through GE junction despite rat tooth forceps, snare, or Gunn net, 2. Able to traverse pylorus (once plastic pushed to side), 3. Small hiatal hernia, 4. LA Grade A esophagitis Date of procedure: 01/27/19 (dictation: [id number]) Pre-op diagnosis: foreign body ingestion Post-op diagnosis: same Findings: plastic glove found in cecum. Procedure: Ex Lap, Gastro-Jejunostomy tube placement, removal of foreign body from cecum Diagnoses: Acute combined respiratory failure s/p MV > 96 hours; stable on nasal canula Dyphagia and Foreign body removal s/p Ex-lap: General Surgery following SBO/ileus: TPN ,monitor electrolytes Acute metabolic encephalopathy as above Hyperkalemia; monitor bmp closely calcium chloride Transaminitis; Monitor LFTs closely, consult GI if needed Cerebral palsy history of cerebral palsy. Fecal impaction: Resolved, stool softeners as needed. Severe malnutrition, bmi 15.3: Acute Care Nurse following DVT prophylaxis On Heparin SQ. Disposition: subacute rehab. States that patient was able to walk unassisted prior to this event new issue is tachycardia, get ekg and start remote monitoring, ?re-feeding syndrome D/W sister Angelique Meza History Interval history: Patient was seen and examined. Follow-up on current diagnosis. No overnight events reported to me. Not cooperative today. Nonverbal. Imaging, nursing note, chart, labs and old chart reviewed. Hospitalist Physical - Physical exam Narrative exam: Gen: cachetic, bmi 15.3, nonverbal CVS/Heart: Regular tachycardia, normal S1S2, pulses present bilaterally Chest/Lungs: Symmetrical chest expansion, good air entry bilaterally GI/Abdomen: soft, PEG and binder in place /Bladder: no suprapubic tenderness, no CVA or paraspinal tenderness Extermity/Skin: atrophic limbs MSK: contracted limbs Neuro: CN 2-12 grossly intact, doesn't follow commands Psych: calm but confused - Constitutional Vitals: Temp Pulse Resp BP Pulse Ox 98.7 F 114 H 16 139/82 100 02/02/19 07:24 02/02/19 07:42 02/02/19 07:42 02/02/19 07:24 02/02/19 10:00 General appearance: Present: no acute distress. Absent: well-nourished Results - Labs CBC & Chem 7: 01/31/19 21:06 02/02/19 05:01 Labs: Laboratory Last Values WBC 6.0 K/mm3 (4.5-11.0) 01/31/19 21:06 RBC 2.76 M/mm3 (3.65-5.03) L 01/31/19 21:06 Hgb 8.6 gm/dl (10.1-14.3) L 01/31/19 21:06 Hct 25.0 % (30.3-42.9) L 01/31/19 21:06 MCV 91 fl (79-97) 01/31/19 21:06 MCH 31 pg (28-32) 01/31/19 21:06 MCHC 34 % (30-34) 01/31/19 21:06 RDW 13.7 % (13.2-15.2) 01/31/19 21:06 Plt Count 478 K/mm3 (140-440) H 01/31/19 21:06 Lymph % (Auto) 9.7 % (13.4-35.0) L 01/31/19 21:06 [place] % (Auto) 4.4 % (0.0-7.3) 01/31/19 21:06 Eos % (Auto) 0.2 % (0.0-4.3) 01/31/19 21:06 Baso % (Auto) 0.4 % (0.0-1.8) 01/31/19 21:06 Lymph # 0.6 K/mm3 (1.2-5.4) L 01/31/19 21:06 [place] # 0.3 K/mm3 (0.0-0.8) 01/31/19 21:06 Eos # 0.0 K/mm3 (0.0-0.4) 01/31/19 21:06 Baso # 0.0 K/mm3 (0.0-0.1) 01/31/19 21:06 Add Manual Diff Complete 01/28/19 04:13 Total Counted 100 01/28/19 04:13 Seg Neutrophils % 85.3 % (40.0-70.0) H 01/31/19 21:06 Seg Neuts % (Manual) 93.0 % (40.0-70.0) H 01/28/19 04:13 Band Neutrophils % 2.0 % 01/28/19 04:13 Lymphocytes % (Manual) 2.0 % (13.4-35.0) L 01/28/19 04:13 Reactive Lymphs % (Man) 0 % 01/28/19 04:13 Monocytes % (Manual) 3.0 % (0.0-7.3) 01/28/19 04:13 Eosinophils % (Manual) 0 % (0.0-4.3) 01/28/19 04:13 Basophils % (Manual) 0 % (0.0-1.8) 01/28/19 04:13 Metamyelocytes % 0 % 01/28/19 04:13 Myelocytes % 0 % 01/28/19 04:13 Promyelocytes % 0 % 01/28/19 04:13 Blast Cells % 0 % 01/28/19 04:13 Nucleated RBC % Not Reportable 01/28/19 04:13 Seg Neutrophils # 5.1 K/mm3 (1.8-7.7) 01/31/19 21:06 Seg Neutrophils # Man 13.9 K/mm3 (1.8-7.7) H 01/28/19 04:13 Band Neutrophils # 0.3 K/mm3 01/28/19 04:13 Lymphocytes # (Manual) 0.3 K/mm3 (1.2-5.4) L 01/28/19 04:13 Abs React Lymphs (Man) 0.0 K/mm3 01/28/19 04:13 Monocytes # (Manual) 0.4 K/mm3 (0.0-0.8) 01/28/19 04:13 Eosinophils # (Manual) 0.0 K/mm3 (0.0-0.4) 01/28/19 04:13 Basophils # (Manual) 0.0 K/mm3 (0.0-0.1) 01/28/19 04:13 Metamyelocytes # 0.0 K/mm3 01/28/19 04:13 Myelocytes # 0.0 K/mm3 01/28/19 04:13 Promyelocytes # 0.0 K/mm3 01/28/19 04:13 Blast Cells # 0.0 K/mm3 01/28/19 04:13 WBC Morphology Not Reportable 01/28/19 04:13 Hypersegmented Neuts Not Reportable 01/28/19 04:13 Hyposegmented Neuts Not Reportable 01/28/19 04:13 Hypogranular Neuts Not Reportable 01/28/19 04:13 Smudge Cells Not Reportable 01/28/19 04:13 Toxic Granulation Not Reportable 01/28/19 04:13 Toxic Vacuolation Not Reportable 01/28/19 04:13 Dohle Bodies Not Reportable 01/28/19 04:13 Pelger-Huet Anomaly Not Reportable 01/28/19 04:13 Shivani Rods Not Reportable 01/28/19 04:13 Platelet Estimate Consistent w auto 01/28/19 04:13 Clumped Platelets Not Reportable 01/28/19 04:13 Plt Clumps, EDTA Not Reportable 01/28/19 04:13 Large Platelets Not Reportable 01/28/19 04:13 Giant Platelets Not Reportable 01/28/19 04:13 Platelet Satelliting Not Reportable 01/28/19 04:13 Plt Morphology Comment Not Reportable 01/28/19 04:13 RBC Morphology Not Reportable 01/28/19 04:13 Dimorphic RBCs Not Reportable 01/28/19 04:13 Polychromasia Not Reportable 01/28/19 04:13 Hypochromasia Not Reportable 01/28/19 04:13 Poikilocytosis Not Reportable 01/28/19 04:13 Anisocytosis 1+ 01/28/19 04:13 Microcytosis Not Reportable 01/28/19 04:13 Macrocytosis Not Reportable 01/28/19 04:13 Spherocytes Not Reportable 01/28/19 04:13 Pappenheimer Bodies Not Reportable 01/28/19 04:13 Sickle Cells Not Reportable 01/28/19 04:13 Target Cells Not Reportable 01/28/19 04:13 Tear Drop Cells Not Reportable 01/28/19 04:13 Ovalocytes Not Reportable 01/28/19 04:13 Helmet Cells Not Reportable 01/28/19 04:13 [place] Bodies Not Reportable 01/28/19 04:13 [place] Rings Not Reportable 01/28/19 04:13 [place] Cells Not Reportable 01/28/19 04:13 Bite Cells Not Reportable 01/28/19 04:13 Crenated Cell Not Reportable 01/28/19 04:13 Elliptocytes Not Reportable 01/28/19 04:13 Acanthocytes (Spur) Not Reportable 01/28/19 04:13 Rouleaux Not Reportable 01/28/19 04:13 Hemoglobin C Crystals Not Reportable 01/28/19 04:13 Schistocytes Not Reportable 01/28/19 04:13 Malaria parasites Not Reportable 01/28/19 04:13 Sebas Bodies Not Reportable 01/28/19 04:13 Hem Pathologist Commnt No 01/28/19 04:13 PT 12.9 Sec. (12.2-14.9) 01/26/19 04:12 INR 0.98 (0.87-1.13) 01/26/19 04:12 APTT 31.9 Sec. (24.2-36.6) 01/14/19 05:13 D-Dimer 135.00 ng/mlDDU (0-234) 01/13/19 00:27 POC ABG pH 7.518 (7.35-7.45) H 01/20/19 16:07 POC ABG pCO2 37.5 (35-45) 01/20/19 16:07 POC ABG pO2 210 (80-105) H 01/20/19 16:07 POC ABG HCO3 30.4 (22-26 mml/L) 01/20/19 16:07 POC ABG Total CO2 32 (23-27mmol/L) 01/20/19 16:07 POC ABG O2 Sat 100 01/20/19 16:07 POC ABG Base Excess 8 ((-2) - (+3)mmol/L) 01/20/19 16:07 VBG pH 7.178 (7.320-7.420) L* 01/13/19 00:27 FiO2 50 % 01/20/19 16:07 Sodium 133 mmol/L (137-145) L 02/02/19 05:01 Potassium 4.8 mmol/L (3.6-5.0) D 02/02/19 05:01 Chloride 98.2 mmol/L (98-107) 02/02/19 05:01 Carbon Dioxide 22 mmol/L (22-30) 02/02/19 05:01 Anion Gap 18 mmol/L 02/02/19 05:01 BUN 24 mg/dL (7-17) H 02/02/19 05:01 Creatinine 0.3 mg/dL (0.7-1.2) L 02/02/19 05:01 Estimated GFR > 60 ml/min 02/02/19 05:01 BUN/Creatinine Ratio 80 % 02/02/19 05:01 Glucose 130 mg/dL (65-100) H 02/02/19 05:01 POC Glucose 126 (70-105) H 02/02/19 05:51 Lactic Acid 0.30 mmol/L (0.7-2.0) L 01/13/19 02:22 Calcium 8.1 mg/dL (8.4-10.2) L 02/02/19 05:01 Phosphorus 3.40 mg/dL (2.5-4.5) 02/02/19 05:01 Magnesium 2.00 mg/dL (1.7-2.3) 02/02/19 05:01 Total Bilirubin 0.20 mg/dL (0.1-1.2) 01/31/19 21:06 AST 77 units/L (5-40) H 01/31/19 21:06 ALT 85 units/L (7-56) H 01/31/19 21:06 Alkaline Phosphatase 72 units/L (35-129) 01/31/19 21:06 Ammonia 25.0 umol/L (25-60) 01/13/19 00:27 Total Creatine Kinase 106 units/L (30-135) 01/13/19 00:27 CK-MB (CK-2) 7.7 ng/mL (0.0-4.0) H 01/13/19 00:27 CK-MB (CK-2) Rel Index 7.2 (0-4) H 01/13/19 00:27 Troponin T < 0.010 ng/mL (0.00-0.029) 01/13/19 00:27 NT-Pro-B Natriuret Pep 52.36 pg/mL (0-900) 01/13/19 00:27 Total Protein 5.3 g/dL (6.3-8.2) L 01/31/19 21:06 Albumin 2.2 g/dL (3.9-5) L 01/31/19 21:06 Albumin/Globulin Ratio 0.7 % 01/31/19 21:06 Urine Color Yellow (Yellow) 01/13/19 02:34 Urine Turbidity Slightly-cloudy (Clear) 01/13/19 02:34 Urine pH 5.0 (5.0-7.0) 01/13/19 02:34 Ur Specific [place] 1.051 (1.003-1.030) H 01/13/19 02:34 Urine Protein <15 mg/dl mg/dL (Negative) 01/13/19 02:34 Urine Glucose (UA) 50 mg/dL (Negative) 01/13/19 02:34 Urine Ketones Neg mg/dL (Negative) 01/13/19 02:34 Urine Blood Neg (Negative) 01/13/19 02:34 Urine Nitrite Neg (Negative) 01/13/19 02:34 Urine Bilirubin Neg (Negative) 01/13/19 02:34 Urine Urobilinogen < 2.0 mg/dL (<2.0) 01/13/19 02:34 Ur Leukocyte Esterase Neg (Negative) 01/13/19 02:34 Urine WBC (Auto) < 1.0 /HPF (0.0-6.0) 01/13/19 02:34 Urine RBC (Auto) < 1.0 /HPF (0.0-6.0) 01/13/19 02:34 U Epithel Cells (Auto) < 1.0 /HPF (0-13.0) 01/13/19 02:34 Urine Bacteria (Auto) 1+ /HPF (Negative) 01/13/19 02:34 Urine Mucus 1+ /HPF 01/13/19 02:34 Blood Type O POSITIVE 01/27/19 16:00 Antibody Screen Negative 01/27/19 16:00 Active Medications - Current Medications Current Medications: Generic Name Dose Route Start Last Admin Trade Name Freq PRN Reason Stop Dose Admin Acetaminophen 650 mg 01/13/19 04:55 02/01/19 17:52 Tylenol WA 650 mg Q6H PRN Administration Pain MILD(1-3)/Fever >100.5/WOOD Albuterol/Ipratropium 1 ampul 02/02/19 08:00 02/02/19 07:42 Duoneb *Not For Prn Use* IH 1 ampul TIDRT JOAN Administration Lipase/Protease/Amylase 1 each 01/31/19 09:41 Pancrenicolasa Schwartz 10,500 Unit FEEDTUBE PRN PRN For Clogged Feeding Tube Bisacodyl 10 mg 01/13/19 04:55 01/16/19 11:30 Dulcolax [place] 10 mg QDAY PRN Administration constipation unrelieved by MOM Dextrose 25 ml 01/15/19 08:51 01/15/19 09:00 D50w (25gm) Syringe IV 25 ml Q30MIN PRN Administration Hypoglycemia Protocol Haloperidol 5 mg 01/15/19 22:00 02/01/19 21:24 Haldol PO 5 mg QHS JOAN Administration Heparin Sodium (Porcine) 5,000 unit 01/15/19 22:00 02/02/19 09:55 Heparin SUB-Q 5,000 unit Q12HR JOAN Administration Hydralazine HCl 10 mg 01/18/19 18:48 01/18/19 19:36 Apresoline IV 10 mg Q3HR PRN Administration SBP >/=160 Hydrophilic Ointment 1 applic 01/12/19 23:54 Vaseline Lip Therapy TP Q2HR PRN Dry Lips Amino Acids/Electrolytes/Dextrose 1,800 mls @ 75 mls/hr 02/01/19 20:00 02/01/19 19:42 Tpn Adult IV 02/02/19 19:59 75 mls/hr DAILY@2000 JOAN Administration Protocol Lorazepam 1 mg 01/20/19 22:00 02/02/19 09:55 Ativan PO 1 mg BID JOAN Administration Multi-Ingred Cream/Lotion/Oil/Oint 1 applic 01/12/19 23:54 Artificial Tears Ophth Oint OU Q4HR PRN Dry Eye(s) Ondansetron HCl 4 mg 01/13/19 04:55 Zofran IV Q8H PRN Nausea And Vomiting Polyethylene Glycol 17 gm 02/01/19 10:00 02/02/19 09:55 Miralax 3350 FEEDTUBE 17 gm QDAY JOAN Administration Quetiapine Fumarate 400 mg 01/22/19 22:00 02/01/19 21:24 Seroquel PO 400 mg QHS JOAN Administration Senna 17.6 mg 02/01/19 10:00 02/02/19 09:55 Senokot FEEDTUBE 17.6 mg Q12HR JOAN Administration Simple Syrup 15 ml 01/31/19 09:41 Simple Syrup FEEDTUBE PRN PRN Hypoglycemia Simple Syrup 30 ml 01/31/19 09:41 Simple Syrup FEEDTUBE PRN PRN Hypoglycemia Sodium Bicarbonate 325 mg 01/31/19 09:41 Sodium Bicarbonate FEEDTUBE PRN PRN For Clogged Feeding Tube Sodium Chloride 10 ml 01/13/19 10:00 02/02/19 09:55 Sodium Chloride Flush Syringe 10 Ml IV 10 ml BID JOAN Administration Sodium Chloride 10 ml 01/13/19 04:55 01/26/19 17:15 Sodium Chloride Flush Syringe 10 Ml IV 10 ml PRN PRN Administration LINE FLUSH Nutrition/Malnutrition Assess - Dietary Evaluation Nutrition/Malnutrition Findings: Nutrition Notes Start: 01/13/19 12:10 Freq: Status: Active Protocol: Document 02/02/19 09:43 ANGELIKA (Rec: 02/02/19 10:14 ANGELIKA [id number]) Co-Sign 02/02/19 09:43 LP Nutrition Notes Initial or Follow up Reassessment Current Diagnosis Respiratory Failure Other Pertinent Diagnosis Cerebral palsy, Seizure, fecal impaction, dehydration Current Diet PPN at 75 ml/hr and Jevity at 50ml/hr Labs/Tests Na 133 BUN 24 Cr 0.3 BG 130 Pertinent Medications Reviewed Height 5 ft 2 in Weight 38.1 kg [place] Body Weight (kg) 50.00 BMI 15.3 Weight Status Underweight Subjective/Other Information PPN day 7. Pt is tolerating TF at 40ml/hr. GJ TF placement Percent of energy/protein needs met: 100%/100% (TF and PPN) Burn Absent Trauma Absent GI Symptoms None Current % PO Negligible Minimum of two criteria Yes Interpretation of Weight Loss (non- 7.5% in 3 months severe) Body Fat Depletion Moderate depletion (severe) Muscle Mass Moderate Depletion (severe) #2 Nutrition Diagnosis Malnutrition Diagnosis Progress(for reassessment Continues documentation) #1 Nutrition Diagnosis Inadequate oral intake Diagnosis Progress(for reassessment Continues documentation) Is patient on ventilator? No Is Patient Ambulatory and/or Out of Bed No REE-([facility]-confined to bed) 1043.172 Kcal/Kg value to use for calculation 42 Approximate Energy Requirements Using 1600 kcal/Kg Calculation Used for Recommendations Kcal/kg Additional Notes PRO: 46-57g/day (1.2-1.5g/kg) Fluid: 1 ml/kcal Nutrition Intervention Change Diet Order: TF Nutrition Support: Jevity 1.2 at 50ml/hr. Water flush 120ml q4hr. Kcal 1,440 Protein (gm) 66 Fluid (mL) 968 Goal #1 Meet at least 80% of energy and protein needs via TF Anticipated Discharge Needs: TF Follow-Up By: 02/03/19 Additional Comments F/U for TF goal rate and tolerance
--- NOTE | 2019-02-02 11:41 | Progress Note ---
Assessment and Plan Acute Hypoxemic and Hypercapnic Respiratory failure s/p extubation Anemia (Normocytic) Acute Encephalopathy( improving) Cerebral palsy Fecal impaction( resolved) Moderate- severe protein calorie malnutrition Oropharyngeal dysphagia s/p PEG -Continue PEG tube feedings, stop TPN -NIPPV qhs and prn -Aspiration precautions, HOB >40% -Continue with mobility and off loading for pressure ulcer prevention -wean supplemental oxygen for O2 sats>90% -prn CXR and ABG -Maintenance of sleep -wake cycle -Avoid delirium -continue bronchodilators with pulmonary hygiene per RT - continue agitation management / Pain management per CPOT - continue to follow clinically off antibiotics - continue VTE prophylaxis - continue accuchecks with glycemic control for SSI (While critically ill target blood glucose of 140-180 mg/dL; avoid hypoglycemia) - Continue mobility protocol for pressure ulcer prevention - Monitor electrolyte profile closely and replete as indicated - continue other care per attending / other consultants Updated sister at the bedside Discharge planning CONDITION: FAIR PROGNOSIS: FAIR CODE STATUS: FULL CODE Subjective Date of service: 02/02/19 Principal diagnosis: Ac Hypoxemic and Hypercapnic Resp failure; Anemia; Cerebral palsy Interval history: Patient is seen today for: Acute Hypoxemic and Hypercapnic Respiratory failure; Anemia; Acute Encephalopathy; Cerebral palsy; Fecal impaction Seen and examined at bedside; 24hour events reviewed; nursing and respiratory care staff consulted; no adverse overnight events reported to me; resting in bed; off supplemental oxygen, no fevers, no vomiting, tolerating tube feeding via PEG Vitals, labs, medications, chart reviewed Sister at the bedside, states she has looked at [facility]Nursing homes Objective Vital Signs - 12hr 02/02/19 02/02/19 02/02/19 02:00 07:24 07:42 Temperature 98.6 F 98.7 F Pulse Rate 128 H 120 H Pulse Rate [ 114 H Bilateral Throughout] Respiratory 18 19 Rate Respiratory 16 Rate [Bilateral Throughout] Blood Pressure 139/82 Blood Pressure 140/75 [Right] O2 Sat by Pulse 100 Oximetry 02/02/19 10:00 Temperature Pulse Rate Pulse Rate [ Bilateral Throughout] Respiratory Rate Respiratory Rate [Bilateral Throughout] Blood Pressure Blood Pressure [Right] O2 Sat by Pulse 100 Oximetry Constitutional: no acute distress, alert, other (elderly petite AAF, normocephalic with normal respiratory effort at rest) Eyes: non-icteric ENT: oropharynx moist Neck: supple, no lymphadenopathy, no JVD Effort: normal Ascultation: Bilateral: clear, rales, rhonchi, other (referred upper airway sounds) Percussion: Bilateral: not dull Cardiovascular: regular rate and rhythm, other (S1,S2) Gastrointestinal: normoactive bowel sounds, soft, non-tender, non-distended Integumentary: rash Extremities: no cyanosis, no edema, pulses normal, no ischemia or petechiae Neurologic: non-focal exam (grossly), pupils equal and round, other (+ cognitive defect re: cerebral Palsy) Psychiatric: anxious CBC and BMP: 01/31/19 21:06 02/03/19 04:26 ABG, PT/INR, D-dimer: ABG POC ABG pH 7.518 (7.35-7.45) H 01/20/19 16:07 POC ABG pCO2 37.5 (35-45) 01/20/19 16:07 POC ABG pO2 210 (80-105) H 01/20/19 16:07 POC ABG HCO3 30.4 (22-26 mml/L) 01/20/19 16:07 POC ABG Total CO2 32 (23-27mmol/L) 01/20/19 16:07 POC ABG O2 Sat 100 01/20/19 16:07 PT/INR, D-dimer PT 12.9 Sec. (12.2-14.9) 01/26/19 04:12 INR 0.98 (0.87-1.13) 01/26/19 04:12 D-Dimer 135.00 ng/mlDDU (0-234) 01/13/19 00:27 Abnormal lab findings: Abnormal Labs 01/13/19 01/13/19 01/13/19 00:27 00:27 00:27 WBC RBC 3.36 L Hgb Hct Plt Count Lymph % (Auto) 4.2 L [place] % (Auto) Lymph # 0.3 L Seg Neutrophils % 89.1 H Seg Neuts % (Manual) Lymphocytes % (Manual) Seg Neutrophils # Seg Neutrophils # Man Lymphocytes # (Manual) APTT POC ABG pH POC ABG pCO2 POC ABG pO2 VBG pH 7.178 L* Sodium Potassium Chloride 109.1 H Carbon Dioxide 20 L BUN 29 H Creatinine Glucose 175 H POC Glucose Lactic Acid Calcium 7.8 L Phosphorus AST ALT CK-MB (CK-2) 7.7 H CK-MB (CK-2) Rel Index 7.2 H Total Protein 6.0 L Albumin 3.3 L Ur Specific [place] 01/13/19 01/13/19 01/13/19 00:27 02:14 02:22 WBC RBC Hgb Hct Plt Count Lymph % (Auto) [place] % (Auto) Lymph # Seg Neutrophils % Seg Neuts % (Manual) Lymphocytes % (Manual) Seg Neutrophils # Seg Neutrophils # Man Lymphocytes # (Manual) APTT POC ABG pH 7.276 L POC ABG pCO2 49.4 H POC ABG pO2 156 H VBG pH Sodium Potassium Chloride Carbon Dioxide BUN Creatinine Glucose POC Glucose Lactic Acid 2.90 H* 0.30 L Calcium Phosphorus AST ALT CK-MB (CK-2) CK-MB (CK-2) Rel Index Total Protein Albumin Ur Specific [place] 01/13/19 01/13/19 01/14/19 02:22 02:34 05:13 WBC RBC 2.96 L Hgb 9.3 L Hct 27.4 L Plt Count Lymph % (Auto) [place] % (Auto) 11.9 H Lymph # Seg Neutrophils % Seg Neuts % (Manual) Lymphocytes % (Manual) Seg Neutrophils # Seg Neutrophils # Man Lymphocytes # (Manual) APTT 39.4 H POC ABG pH POC ABG pCO2 POC ABG pO2 VBG pH Sodium Potassium Chloride Carbon Dioxide BUN Creatinine Glucose POC Glucose Lactic Acid Calcium Phosphorus AST ALT CK-MB (CK-2) CK-MB (CK-2) Rel Index Total Protein Albumin Ur Specific [place] 1.051 H 01/14/19 01/14/19 01/15/19 05:13 06:06 04:31 WBC RBC Hgb Hct Plt Count Lymph % (Auto) [place] % (Auto) Lymph # Seg Neutrophils % Seg Neuts % (Manual) Lymphocytes % (Manual) Seg Neutrophils # Seg Neutrophils # Man Lymphocytes # (Manual) APTT POC ABG pH POC ABG pCO2 33.7 L POC ABG pO2 121 H 114 H VBG pH Sodium Potassium Chloride Carbon Dioxide 21 L BUN 22 H Creatinine 0.6 L Glucose 62 L POC Glucose Lactic Acid Calcium 8.0 L Phosphorus AST ALT CK-MB (CK-2) CK-MB (CK-2) Rel Index Total Protein Albumin Ur Specific [place] 01/15/19 01/15/1919 08:51 10:07 02:56 WBC RBC Hgb Hct Plt Count Lymph % (Auto) [place] % (Auto) Lymph # Seg Neutrophils % Seg Neuts % (Manual) Lymphocytes % (Manual) Seg Neutrophils # Seg Neutrophils # Man Lymphocytes # (Manual) APTT POC ABG pH POC ABG pCO2 POC ABG pO2 VBG pH Sodium Potassium Chloride Carbon Dioxide BUN Creatinine Glucose POC Glucose < 40 L 158 H 142 H Lactic Acid Calcium Phosphorus AST ALT CK-MB (CK-2) CK-MB (CK-2) Rel Index Total Protein Albumin Ur Specific [place] 01/16/19 01/17/19 01/17/19 17:54 04:06 04:23 WBC RBC Hgb Hct Plt Count Lymph % (Auto) [place] % (Auto) Lymph # Seg Neutrophils % Seg Neuts % (Manual) Lymphocytes % (Manual) Seg Neutrophils # Seg Neutrophils # Man Lymphocytes # (Manual) APTT POC ABG pH POC ABG pCO2 33.7 L POC ABG pO2 VBG pH Sodium Potassium Chloride Carbon Dioxide BUN Creatinine Glucose POC Glucose 123 H 161 H Lactic Acid Calcium Phosphorus AST ALT CK-MB (CK-2) CK-MB (CK-2) Rel Index Total Protein Albumin Ur Specific [place] 01/17/19 01/18/19 01/19/19 11:20 04:34 11:55 WBC RBC Hgb Hct Plt Count Lymph % (Auto) [place] % (Auto) Lymph # Seg Neutrophils % Seg Neuts % (Manual) Lymphocytes % (Manual) Seg Neutrophils # Seg Neutrophils # Man Lymphocytes # (Manual) APTT POC ABG pH 7.498 H 7.484 H POC ABG pCO2 32.1 L POC ABG pO2 121 H 52 L VBG pH Sodium Potassium Chloride Carbon Dioxide BUN Creatinine Glucose POC Glucose Lactic Acid Calcium Phosphorus AST ALT CK-MB (CK-2) CK-MB (CK-2) Rel Index Total Protein Albumin Ur Specific [place] 01/19/19 01/20/19 01/20/19 23:45 06:30 13:22 WBC RBC Hgb Hct Plt Count Lymph % (Auto) [place] % (Auto) Lymph # Seg Neutrophils % Seg Neuts % (Manual) Lymphocytes % (Manual) Seg Neutrophils # Seg Neutrophils # Man Lymphocytes # (Manual) APTT POC ABG pH POC ABG pCO2 POC ABG pO2 VBG pH Sodium Potassium Chloride Carbon Dioxide BUN Creatinine Glucose POC Glucose 128 H 107 H 149 H Lactic Acid Calcium Phosphorus AST ALT CK-MB (CK-2) CK-MB (CK-2) Rel Index Total Protein Albumin Ur Specific [place] 01/20/19 01/20/19 01/20/19 16:07 18:11 22:53 WBC RBC Hgb Hct Plt Count Lymph % (Auto) [place] % (Auto) Lymph # Seg Neutrophils % Seg Neuts % (Manual) Lymphocytes % (Manual) Seg Neutrophils # Seg Neutrophils # Man Lymphocytes # (Manual) APTT POC ABG pH 7.518 H POC ABG pCO2 POC ABG pO2 210 H VBG pH Sodium Potassium Chloride Carbon Dioxide BUN Creatinine Glucose POC Glucose 139 H 166 H Lactic Acid Calcium Phosphorus AST ALT CK-MB (CK-2) CK-MB (CK-2) Rel Index Total Protein Albumin Ur Specific [place] 01/21/19 01/21/19 01/21/19 04:36 04:47 04:47 WBC RBC 2.89 L Hgb 8.9 L Hct 26.7 L Plt Count Lymph % (Auto) 13.0 L [place] % (Auto) 9.6 H Lymph # 0.7 L Seg Neutrophils % 77.0 H Seg Neuts % (Manual) Lymphocytes % (Manual) Seg Neutrophils # Seg Neutrophils # Man Lymphocytes # (Manual) APTT POC ABG pH POC ABG pCO2 POC ABG pO2 VBG pH Sodium 134 L Potassium Chloride 96.9 L Carbon Dioxide BUN 18 H Creatinine 0.4 L Glucose 138 H POC Glucose 138 H Lactic Acid Calcium 8.0 L Phosphorus AST 171 H ALT 102 H CK-MB (CK-2) CK-MB (CK-2) Rel Index Total Protein 5.6 L Albumin 2.2 L Ur Specific [place] 01/22/19 01/22/19 01/22/19 00:31 05:27 12:16 WBC RBC Hgb Hct Plt Count Lymph % (Auto) [place] % (Auto) Lymph # Seg Neutrophils % Seg Neuts % (Manual) Lymphocytes % (Manual) Seg Neutrophils # Seg Neutrophils # Man Lymphocytes # (Manual) APTT POC ABG pH POC ABG pCO2 POC ABG pO2 VBG pH Sodium Potassium Chloride Carbon Dioxide BUN Creatinine Glucose POC Glucose 113 H 106 H 113 H Lactic Acid Calcium Phosphorus AST ALT CK-MB (CK-2) CK-MB (CK-2) Rel Index Total Protein Albumin Ur Specific [place] 01/23/19 01/23/19 01/23/19 00:35 05:43 11:55 WBC RBC Hgb Hct Plt Count Lymph % (Auto) [place] % (Auto) Lymph # Seg Neutrophils % Seg Neuts % (Manual) Lymphocytes % (Manual) Seg Neutrophils # Seg Neutrophils # Man Lymphocytes # (Manual) APTT POC ABG pH POC ABG pCO2 POC ABG pO2 VBG pH Sodium Potassium Chloride Carbon Dioxide BUN Creatinine Glucose POC Glucose 120 H 139 H 119 H Lactic Acid Calcium Phosphorus AST ALT CK-MB (CK-2) CK-MB (CK-2) Rel Index Total Protein Albumin Ur Specific [place] 01/23/19 01/24/19 01/24/19 18:34 00:40 05:42 WBC RBC Hgb Hct Plt Count Lymph % (Auto) [place] % (Auto) Lymph # Seg Neutrophils % Seg Neuts % (Manual) Lymphocytes % (Manual) Seg Neutrophils # Seg Neutrophils # Man Lymphocytes # (Manual) APTT POC ABG pH POC ABG pCO2 POC ABG pO2 VBG pH Sodium Potassium Chloride Carbon Dioxide BUN Creatinine Glucose POC Glucose 146 H 136 H 119 H Lactic Acid Calcium Phosphorus AST ALT CK-MB (CK-2) CK-MB (CK-2) Rel Index Total Protein Albumin Ur Specific [place] 01/24/19 01/25/19 01/25/19 11:35 00:09 06:30 WBC RBC Hgb Hct Plt Count Lymph % (Auto) [place] % (Auto) Lymph # Seg Neutrophils % Seg Neuts % (Manual) Lymphocytes % (Manual) Seg Neutrophils # Seg Neutrophils # Man Lymphocytes # (Manual) APTT POC ABG pH POC ABG pCO2 POC ABG pO2 VBG pH Sodium Potassium Chloride Carbon Dioxide BUN Creatinine Glucose POC Glucose 117 H 119 H 127 H Lactic Acid Calcium Phosphorus AST ALT CK-MB (CK-2) CK-MB (CK-2) Rel Index Total Protein Albumin Ur Specific [place] 01/25/19 01/26/19 01/26/19 12:10 00:21 04:12 WBC RBC 3.05 L Hgb 9.3 L Hct 27.5 L Plt Count Lymph % (Auto) [place] % (Auto) 10.0 H Lymph # 0.9 L Seg Neutrophils % 73.9 H Seg Neuts % (Manual) Lymphocytes % (Manual) Seg Neutrophils # Seg Neutrophils # Man Lymphocytes # (Manual) APTT POC ABG pH POC ABG pCO2 POC ABG pO2 VBG pH Sodium Potassium Chloride Carbon Dioxide BUN Creatinine Glucose POC Glucose 109 H 125 H Lactic Acid Calcium Phosphorus AST ALT CK-MB (CK-2) CK-MB (CK-2) Rel Index Total Protein Albumin Ur Specific [place] 01/26/19 01/27/19 01/27/19 04:12 04:49 04:49 WBC RBC 3.11 L Hgb 9.5 L Hct 28.0 L Plt Count 477 H Lymph % (Auto) 7.4 L [place] % (Auto) Lymph # 0.8 L Seg Neutrophils % 87.7 H Seg Neuts % (Manual) Lymphocytes % (Manual) Seg Neutrophils # 9.0 H Seg Neutrophils # Man Lymphocytes # (Manual) APTT POC ABG pH POC ABG pCO2 POC ABG pO2 VBG pH Sodium 133 L 131 L Potassium 5.4 H D Chloride Carbon Dioxide 20 L BUN 26 H 28 H Creatinine 0.5 L 0.5 L Glucose POC Glucose Lactic Acid Calcium Phosphorus 4.60 H AST 161 H 82 H ALT 208 H 122 H CK-MB (CK-2) CK-MB (CK-2) Rel Index Total Protein 6.2 L Albumin 2.8 L 2.7 L Ur Specific [place] 01/28/19 01/28/19 01/28/19 04:13 04:13 06:14 WBC 14.9 H RBC 2.94 L Hgb 8.9 L Hct 26.5 L Plt Count 514 H Lymph % (Auto) [place] % (Auto) Lymph # Seg Neutrophils % Seg Neuts % (Manual) 93.0 H Lymphocytes % (Manual) 2.0 L Seg Neutrophils # Seg Neutrophils # Man 13.9 H Lymphocytes # (Manual) 0.3 L APTT POC ABG pH POC ABG pCO2 POC ABG pO2 VBG pH Sodium Potassium Chloride Carbon Dioxide 19 L BUN 42 H Creatinine 0.5 L Glucose 134 H POC Glucose 159 H Lactic Acid Calcium Phosphorus AST 91 H ALT 108 H CK-MB (CK-2) CK-MB (CK-2) Rel Index Total Protein 6.1 L Albumin 2.7 L Ur Specific [place] 01/28/19 01/28/19 01/29/19 12:43 17:49 00:13 WBC RBC Hgb Hct Plt Count Lymph % (Auto) [place] % (Auto) Lymph # Seg Neutrophils % Seg Neuts % (Manual) Lymphocytes % (Manual) Seg Neutrophils # Seg Neutrophils # Man Lymphocytes # (Manual) APTT POC ABG pH POC ABG pCO2 POC ABG pO2 VBG pH Sodium Potassium Chloride Carbon Dioxide BUN Creatinine Glucose POC Glucose 159 H 151 H 148 H Lactic Acid Calcium Phosphorus AST ALT CK-MB (CK-2) CK-MB (CK-2) Rel Index Total Protein Albumin Ur Specific [place] 01/29/19 01/29/19 01/29/19 07:00 07:43 08:47 WBC RBC Hgb Hct Plt Count Lymph % (Auto) [place] % (Auto) Lymph # Seg Neutrophils % Seg Neuts % (Manual) Lymphocytes % (Manual) Seg Neutrophils # Seg Neutrophils # Man Lymphocytes # (Manual) APTT POC ABG pH POC ABG pCO2 POC ABG pO2 VBG pH Sodium Potassium 3.4 L Chloride Carbon Dioxide 21 L BUN 46 H Creatinine 0.3 L Glucose 117 H POC Glucose 130 H 144 H Lactic Acid Calcium Phosphorus AST ALT CK-MB (CK-2) CK-MB (CK-2) Rel Index Total Protein Albumin Ur Specific [place] 01/29/19 01/29/19 01/30/19 11:31 16:21 00:33 WBC RBC Hgb Hct Plt Count Lymph % (Auto) [place] % (Auto) Lymph # Seg Neutrophils % Seg Neuts % (Manual) Lymphocytes % (Manual) Seg Neutrophils # Seg Neutrophils # Man Lymphocytes # (Manual) APTT POC ABG pH POC ABG pCO2 POC ABG pO2 VBG pH Sodium Potassium Chloride Carbon Dioxide BUN Creatinine Glucose POC Glucose 133 H 138 H 159 H Lactic Acid Calcium Phosphorus AST ALT CK-MB (CK-2) CK-MB (CK-2) Rel Index Total Protein Albumin Ur Specific [place] 01/30/19 01/30/19 01/30/19 04:13 06:04 07:34 WBC RBC Hgb Hct Plt Count Lymph % (Auto) [place] % (Auto) Lymph # Seg Neutrophils % Seg Neuts % (Manual) Lymphocytes % (Manual) Seg Neutrophils # Seg Neutrophils # Man Lymphocytes # (Manual) APTT POC ABG pH POC ABG pCO2 POC ABG pO2 VBG pH Sodium Potassium 3.3 L Chloride Carbon Dioxide BUN 34 H Creatinine 0.3 L Glucose 156 H POC Glucose 136 H 130 H Lactic Acid Calcium Phosphorus AST ALT CK-MB (CK-2) CK-MB (CK-2) Rel Index Total Protein Albumin Ur Specific [place] 1201/30/19 01/31/19 12:36 18:55 05:16 WBC RBC Hgb Hct Plt Count Lymph % (Auto) [place] % (Auto) Lymph # Seg Neutrophils % Seg Neuts % (Manual) Lymphocytes % (Manual) Seg Neutrophils # Seg Neutrophils # Man Lymphocytes # (Manual) APTT POC ABG pH POC ABG pCO2 POC ABG pO2 VBG pH Sodium Potassium Chloride Carbon Dioxide BUN 29 H Creatinine 0.3 L Glucose 129 H POC Glucose 134 H 114 H Lactic Acid Calcium Phosphorus AST ALT CK-MB (CK-2) CK-MB (CK-2) Rel Index Total Protein Albumin Ur Specific [place] 01/31/19 01/31/19 01/31/19 11:32 16:58 21:06 WBC RBC 2.76 L Hgb 8.6 L Hct 25.0 L Plt Count 478 H Lymph % (Auto) 9.7 L [place] % (Auto) Lymph # 0.6 L Seg Neutrophils % 85.3 H Seg Neuts % (Manual) Lymphocytes % (Manual) Seg Neutrophils # Seg Neutrophils # Man Lymphocytes # (Manual) APTT POC ABG pH POC ABG pCO2 POC ABG pO2 VBG pH Sodium Potassium Chloride Carbon Dioxide BUN Creatinine Glucose POC Glucose 127 H 141 H Lactic Acid Calcium Phosphorus AST ALT CK-MB (CK-2) CK-MB (CK-2) Rel Index Total Protein Albumin Ur Specific [place] 01/31/19 02/01/19 02/01/19 21:06 00:22 04:56 WBC RBC Hgb Hct Plt Count Lymph % (Auto) [place] % (Auto) Lymph # Seg Neutrophils % Seg Neuts % (Manual) Lymphocytes % (Manual) Seg Neutrophils # Seg Neutrophils # Man Lymphocytes # (Manual) APTT POC ABG pH POC ABG pCO2 POC ABG pO2 VBG pH Sodium Potassium Chloride Carbon Dioxide BUN 32 H 27 H Creatinine 0.3 L 0.3 L Glucose 122 H 117 H POC Glucose 133 H Lactic Acid Calcium 8.1 L Phosphorus AST 77 H ALT 85 H CK-MB (CK-2) CK-MB (CK-2) Rel Index Total Protein 5.3 L Albumin 2.2 L Ur Specific [place] 02/01/19 02/01/19 02/01/19 06:35 11:54 18:10 WBC RBC Hgb Hct Plt Count Lymph % (Auto) [place] % (Auto) Lymph # Seg Neutrophils % Seg Neuts % (Manual) Lymphocytes % (Manual) Seg Neutrophils # Seg Neutrophils # Man Lymphocytes # (Manual) APTT POC ABG pH POC ABG pCO2 POC ABG pO2 VBG pH Sodium Potassium Chloride Carbon Dioxide BUN Creatinine Glucose POC Glucose 112 H 139 H 120 H Lactic Acid Calcium Phosphorus AST ALT CK-MB (CK-2) CK-MB (CK-2) Rel Index Total Protein Albumin Ur Specific [place] 02/02/19 02/02/19 02/02/19 00:42 05:01 05:51 WBC RBC Hgb Hct Plt Count Lymph % (Auto) [place] % (Auto) Lymph # Seg Neutrophils % Seg Neuts % (Manual) Lymphocytes % (Manual) Seg Neutrophils # Seg Neutrophils # Man Lymphocytes # (Manual) APTT POC ABG pH POC ABG pCO2 POC ABG pO2 VBG pH Sodium 133 L Potassium Chloride Carbon Dioxide BUN 24 H Creatinine 0.3 L Glucose 130 H POC Glucose 157 H 126 H Lactic Acid Calcium 8.1 L Phosphorus AST ALT CK-MB (CK-2) CK-MB (CK-2) Rel Index Total Protein Albumin Ur Specific [place] Allied health notes reviewed: nursing
[2019-02-02] MEDS: HALOPERIDOL 5 MG TAB PO SCH (21:59)
[2019-02-02] MEDS: QUEtiapine 200 MG TAB PO SCH (22:00)
[2019-02-03 05:45] LABS: BUN/Creatinine Ratio 60; Blood Urea Nitrogen 18 mg/dL (7-17); Calcium 7.8 mg/dL (8.4-10.2); Hemolysis Index 4
[2019-02-03] MEDS: IPRATROPIUM/ALBUTEROL SULFATE 3 ML AMPUL.NEB IH SCH ×2 (07:26→13:44)
[2019-02-03] MEDS: SENNOSIDES ORAL LIQD 8.8 MG/5 ML ORAL LIQD FEEDTUBE SCH (09:37)
[2019-02-03] MEDS: HEPARIN 5,000 UNIT/1 ML VIAL SUB-Q SCH ×2 (09:37→22:14)
[2019-02-03] MEDS: POLYETHYLENE GLYCOL 3350 17 GM POWDER FEEDTUBE SCH (09:37)
[2019-02-03] MEDS: LORazepam 1 MG TAB PO SCH ×2 (09:37→22:13)
--- NOTE | 2019-02-03 09:37 | Progress Note ---
Assessment and Plan - Patient Problems (1) Foreign body alimentary tract Current Visit: Yes Status: Acute Qualifiers: Encounter type: initial encounter Qualified Code(s): T18.9XXA - Foreign body of alimentary tract, part unspecified, initial encounter Plan to address problem: Pt stable. s/p foreign body removal from cecum and Gastro-Jejunal feeding tube placement - 01/27 - POD#7. No apparent complications. I believe she has chronic bowel dysfunction which causes her to have persistent bowel distention. Hopefully the bowel regimen will a help a little. Not sure what to make of this elevated HR. She clinically appears no different than in previous days. TF intolerance? Some other issue? Will discuss with hospitalist. Rec: 1) Check residuals from Gastric port 4 times a day 2) may stop PPN 3) Continue tube feeds at goal rate 4) ok for d/c from my standpoint 5) f/u in office in 2 weeks. 6) adjust bowel regimen as needed to maintain daily movements. Please call with questions. Subjective Date of service: 02/03/19 Patient Reports: Positive: other (no events o/n. Pt tolerating TF at goal) Objective Vital Signs - 12hr 02/02/19 02/03/19 02/03/19 23:50 02:08 02:09 Temperature 97.5 F L Pulse Rate 111 H 124 H 123 H Pulse Rate [ Bilateral Throughout] Respiratory 16 Rate Respiratory Rate [Bilateral Throughout] Blood Pressure 111/72 O2 Sat by Pulse 100 100 Oximetry 02/03/19 02/03/19 07:44 07:59 Temperature 98.9 F Pulse Rate 110 H Pulse Rate [ 104 H Bilateral Throughout] Respiratory 18 Rate Respiratory 16 Rate [Bilateral Throughout] Blood Pressure 118/68 O2 Sat by Pulse 98 Oximetry - General physical appearance no distress, no pain - Respiratory normal expansion, normal respiratory effort - Abdomen soft, distended (mild), other (G-j tube in place. Incision C/D/I) - Integumentary no rash, no growths, no abnormal pigmentation - Labs 01/31/19 21:06 02/03/19 04:26 Diabetes panel 02/03/19 Range/Units 04:26 Sodium 135 L (137-145) mmol/L Potassium 4.2 (3.6-5.0) mmol/L Chloride 100.6 (98-107) mmol/L Carbon Dioxide 21 L (22-30) mmol/L BUN 18 H (7-17) mg/dL Creatinine 0.3 L (0.7-1.2) mg/dL Glucose 109 H (65-100) mg/dL Calcium 7.8 L (8.4-10.2) mg/dL Calcium panel 02/03/19 Range/Units 04:26 Calcium 7.8 L (8.4-10.2) mg/dL Phosphorus 3.10 (2.5-4.5) mg/dL Pituitary panel 02/03/19 Range/Units 04:26 Sodium 135 L (137-145) mmol/L Potassium 4.2 (3.6-5.0) mmol/L Chloride 100.6 (98-107) mmol/L Carbon Dioxide 21 L (22-30) mmol/L BUN 18 H (7-17) mg/dL Creatinine 0.3 L (0.7-1.2) mg/dL Glucose 109 H (65-100) mg/dL Calcium 7.8 L (8.4-10.2) mg/dL Adrenal panel 02/03/19 Range/Units 04:26 Sodium 135 L (137-145) mmol/L Potassium 4.2 (3.6-5.0) mmol/L Chloride 100.6 (98-107) mmol/L Carbon Dioxide 21 L (22-30) mmol/L BUN 18 H (7-17) mg/dL Creatinine 0.3 L (0.7-1.2) mg/dL Glucose 109 H (65-100) mg/dL Calcium 7.8 L (8.4-10.2) mg/dL
--- NOTE | 2019-02-03 13:18 | Progress Note ---
Assessment and Plan Assessment and plan: Patient is a 68-year-old woman with a history of cerebral palsy, mental retardation, unspecified mental disorder and chronic constipation who presented to [facility] ED on 01/12/19 with SOB, respiratory distress, constipation and increasing swelling of the abdomen. Patient's sister Angelique Meza is her caregiver/roommate noticed that patient abdomen was more distended than usual. It was discovered thru collateral history from Ms. Meza that patient has a well-established history of Pica-like behavior. Pt had a PEG tube placed 15 years ago but she pulled out. Since then she has been able to eat without any difficulties until recently. Patient went to the bathroom and had a large hard bowel movement followed by an acute episode of severe shortness of breath and respiratory distress. Upon arrival to the ED, patient was on 100% O2 NRB mask with agonal respirations. She was confused and unresponsive; therefore, she was intubated via ETT. Abdomen was noted to be hard and distended. Of note, Patient's only previous abdominal surgical history was the PEG tube placement which is no longer present. CT of the abdomen shows fecal impaction. She was admitted to ICU. She was extubated on 01/18/19. However, the abdominal distension persisted after multiple bowel treatments, the fecal impaction was felt to be resolved. Nonetheless, she failed her swallow study and was subsequently set up for PEG tube placement by GI. Then on 01/26/[address] Bruce found foreign bodies (pieces of plastic) in the stomach. Dr. Bruce felt they may be contributing to her bowel issues. He was unable to remove them due to the large size. Therefore, he requested general surgery consult. Then on 01/27/19, She underwent exploratory laparatomy and plastic glove was found in the cecum.. It was removed and Gastro-Jejunostomy tube was place. She was started on PPN and re-feeding via tube feeding has been very gradual. 01/26/2019 EGD with attempted foreign body removal Pre-op diagnosis: Neurogenic Dysphagia Post-op diagnosis: other (Foreign Body Stomach) Findings: 1. Large pieces of plastic in stomach; unable to remove through GE junction despite rat tooth forceps, snare, or Gunn net, 2. Able to traverse pylorus (once plastic pushed to side), 3. Small hiatal hernia, 4. LA Grade A esophagitis Date of procedure: 01/27/19 (dictation: [id number]) Pre-op diagnosis: foreign body ingestion Post-op diagnosis: same Findings: plastic glove found in cecum. Procedure: Ex Lap, Gastro-Jejunostomy tube placement, removal of foreign body from cecum Diagnoses: Acute combined respiratory failure s/p MV > 96 hours; stable on nasal canula Dyphagia and Foreign body removal s/p Ex-lap: General Surgery following SBO/ileus: TPN ,monitor electrolytes Acute metabolic encephalopathy as above Hyperkalemia; monitor bmp closely calcium chloride Transaminitis; Monitor LFTs closely, consult GI if needed Cerebral palsy history of cerebral palsy. Fecal impaction: Resolved, stool softeners as needed. Severe malnutrition, bmi 15.3: Transit Mechanic following new issue is tachycardia, get ekg and start remote monitoring, re-feeding syndrome, improving DVT prophylaxis On Heparin SQ. Disposition: continue inpatient care, await placement, PPN stopped and tube feeding at goal, ready for discharge today D/W sister Angelique Meza History Interval history: Patient was seen and examined. Follow-up on current diagnosis. No overnight events reported to me. Not cooperative today. Nonverbal. Imaging, nursing note, chart, labs and old chart reviewed. Hospitalist Physical - Physical exam Narrative exam: Gen: cachetic, bmi 15.3, nonverbal CVS/Heart: Regular tachycardia, normal S1S2, pulses present bilaterally Chest/Lungs: Symmetrical chest expansion, good air entry bilaterally GI/Abdomen: soft, PEG and binder in place /Bladder: no suprapubic tenderness, no CVA or paraspinal tenderness Extermity/Skin: atrophic limbs MSK: contracted limbs Neuro: CN 2-12 grossly intact, doesn't follow commands Psych: calm but confused - Constitutional Vitals: Temp Pulse Resp BP Pulse Ox 98.9 F 104 H 16 118/68 98 02/03/19 07:44 02/03/19 10:00 02/03/19 07:59 02/03/19 07:44 02/03/19 07:44 General appearance: Present: no acute distress. Absent: well-nourished Results - Labs CBC & Chem 7: 01/31/19 21:06 02/03/19 04:26 Labs: Laboratory Last Values WBC 6.0 K/mm3 (4.5-11.0) 01/31/19 21:06 RBC 2.76 M/mm3 (3.65-5.03) L 01/31/19 21:06 Hgb 8.6 gm/dl (10.1-14.3) L 01/31/19 21:06 Hct 25.0 % (30.3-42.9) L 01/31/19 21:06 MCV 91 fl (79-97) 01/31/19 21:06 MCH 31 pg (28-32) 01/31/19 21:06 MCHC 34 % (30-34) 01/31/19 21:06 RDW 13.7 % (13.2-15.2) 01/31/19 21:06 Plt Count 478 K/mm3 (140-440) H 01/31/19 21:06 Lymph % (Auto) 9.7 % (13.4-35.0) L 01/31/19 21:06 Ector % (Auto) 4.4 % (0.0-7.3) 01/31/19 21:06 Eos % (Auto) 0.2 % (0.0-4.3) 01/31/19 21:06 Baso % (Auto) 0.4 % (0.0-1.8) 01/31/19 21:06 Lymph # 0.6 K/mm3 (1.2-5.4) L 01/31/19 21:06 Ector # 0.3 K/mm3 (0.0-0.8) 01/31/19 21:06 Eos # 0.0 K/mm3 (0.0-0.4) 01/31/19 21:06 Baso # 0.0 K/mm3 (0.0-0.1) 01/31/19 21:06 Add Manual Diff Complete 01/28/19 04:13 Total Counted 100 01/28/19 04:13 Seg Neutrophils % 85.3 % (40.0-70.0) H 01/31/19 21:06 Seg Neuts % (Manual) 93.0 % (40.0-70.0) H 01/28/19 04:13 Band Neutrophils % 2.0 % 01/28/19 04:13 Lymphocytes % (Manual) 2.0 % (13.4-35.0) L 01/28/19 04:13 Reactive Lymphs % (Man) 0 % 01/28/19 04:13 Monocytes % (Manual) 3.0 % (0.0-7.3) 01/28/19 04:13 Eosinophils % (Manual) 0 % (0.0-4.3) 01/28/19 04:13 Basophils % (Manual) 0 % (0.0-1.8) 01/28/19 04:13 Metamyelocytes % 0 % 01/28/19 04:13 Myelocytes % 0 % 01/28/19 04:13 Promyelocytes % 0 % 01/28/19 04:13 Blast Cells % 0 % 01/28/19 04:13 Nucleated RBC % Not Reportable 01/28/19 04:13 Seg Neutrophils # 5.1 K/mm3 (1.8-7.7) 01/31/19 21:06 Seg Neutrophils # Man 13.9 K/mm3 (1.8-7.7) H 01/28/19 04:13 Band Neutrophils # 0.3 K/mm3 01/28/19 04:13 Lymphocytes # (Manual) 0.3 K/mm3 (1.2-5.4) L 01/28/19 04:13 Abs React Lymphs (Man) 0.0 K/mm3 01/28/19 04:13 Monocytes # (Manual) 0.4 K/mm3 (0.0-0.8) 01/28/19 04:13 Eosinophils # (Manual) 0.0 K/mm3 (0.0-0.4) 01/28/19 04:13 Basophils # (Manual) 0.0 K/mm3 (0.0-0.1) 01/28/19 04:13 Metamyelocytes # 0.0 K/mm3 01/28/19 04:13 Myelocytes # 0.0 K/mm3 01/28/19 04:13 Promyelocytes # 0.0 K/mm3 01/28/19 04:13 Blast Cells # 0.0 K/mm3 01/28/19 04:13 WBC Morphology Not Reportable 01/28/19 04:13 Hypersegmented Neuts Not Reportable 01/28/19 04:13 Hyposegmented Neuts Not Reportable 01/28/19 04:13 Hypogranular Neuts Not Reportable 01/28/19 04:13 Smudge Cells Not Reportable 01/28/19 04:13 Toxic Granulation Not Reportable 01/28/19 04:13 Toxic Vacuolation Not Reportable 01/28/19 04:13 Dohle Bodies Not Reportable 01/28/19 04:13 Pelger-Huet Anomaly Not Reportable 01/28/19 04:13 Shivani Rods Not Reportable 01/28/19 04:13 Platelet Estimate Consistent w auto 01/28/19 04:13 Clumped Platelets Not Reportable 01/28/19 04:13 Plt Clumps, EDTA Not Reportable 01/28/19 04:13 Large Platelets Not Reportable 01/28/19 04:13 Giant Platelets Not Reportable 01/28/19 04:13 Platelet Satelliting Not Reportable 01/28/19 04:13 Plt Morphology Comment Not Reportable 01/28/19 04:13 RBC Morphology Not Reportable 01/28/19 04:13 Dimorphic RBCs Not Reportable 01/28/19 04:13 Polychromasia Not Reportable 01/28/19 04:13 Hypochromasia Not Reportable 01/28/19 04:13 Poikilocytosis Not Reportable 01/28/19 04:13 Anisocytosis 1+ 01/28/19 04:13 Microcytosis Not Reportable 01/28/19 04:13 Macrocytosis Not Reportable 01/28/19 04:13 Spherocytes Not Reportable 01/28/19 04:13 Pappenheimer Bodies Not Reportable 01/28/19 04:13 Sickle Cells Not Reportable 01/28/19 04:13 Target Cells Not Reportable 01/28/19 04:13 Tear Drop Cells Not Reportable 01/28/19 04:13 Ovalocytes Not Reportable 01/28/19 04:13 Helmet Cells Not Reportable 01/28/19 04:13 [place] Bodies Not Reportable 01/28/19 04:13 [place] Rings Not Reportable 01/28/19 04:13 [place] Cells Not Reportable 01/28/19 04:13 Bite Cells Not Reportable 01/28/19 04:13 Crenated Cell Not Reportable 01/28/19 04:13 Elliptocytes Not Reportable 01/28/19 04:13 Acanthocytes (Spur) Not Reportable 01/28/19 04:13 Rouleaux Not Reportable 01/28/19 04:13 Hemoglobin C Crystals Not Reportable 01/28/19 04:13 Schistocytes Not Reportable 01/28/19 04:13 Malaria parasites Not Reportable 01/28/19 04:13 Sebas Bodies Not Reportable 01/28/19 04:13 Hem Pathologist Commnt No 01/28/19 04:13 PT 12.9 Sec. (12.2-14.9) 01/26/19 04:12 INR 0.98 (0.87-1.13) 01/26/19 04:12 APTT 31.9 Sec. (24.2-36.6) 01/14/19 05:13 D-Dimer 135.00 ng/mlDDU (0-234) 01/13/19 00:27 POC ABG pH 7.518 (7.35-7.45) H 01/20/19 16:07 POC ABG pCO2 37.5 (35-45) 01/20/19 16:07 POC ABG pO2 210 (80-105) H 01/20/19 16:07 POC ABG HCO3 30.4 (22-26 mml/L) 01/20/19 16:07 POC ABG Total CO2 32 (23-27mmol/L) 01/20/19 16:07 POC ABG O2 Sat 100 01/20/19 16:07 POC ABG Base Excess 8 ((-2) - (+3)mmol/L) 01/20/19 16:07 VBG pH 7.178 (7.320-7.420) L* 01/13/19 00:27 FiO2 50 % 01/20/19 16:07 Sodium 135 mmol/L (137-145) L 02/03/19 04:26 Potassium 4.2 mmol/L (3.6-5.0) 02/03/19 04:26 Chloride 100.6 mmol/L (98-107) 02/03/19 04:26 Carbon Dioxide 21 mmol/L (22-30) L 02/03/19 04:26 Anion Gap 18 mmol/L 02/03/19 04:26 BUN 18 mg/dL (7-17) H 02/03/19 04:26 Creatinine 0.3 mg/dL (0.7-1.2) L 02/03/19 04:26 Estimated GFR > 60 ml/min 02/03/19 04:26 BUN/Creatinine Ratio 60 % 02/03/19 04:26 Glucose 109 mg/dL (65-100) H 02/03/19 04:26 POC Glucose 115 (70-105) H 02/03/19 11:29 Lactic Acid 0.30 mmol/L (0.7-2.0) L 01/13/19 02:22 Calcium 7.8 mg/dL (8.4-10.2) L 02/03/19 04:26 Phosphorus 3.10 mg/dL (2.5-4.5) 02/03/19 04:26 Magnesium 1.90 mg/dL (1.7-2.3) 02/03/19 04:26 Total Bilirubin 0.20 mg/dL (0.1-1.2) 01/31/19 21:06 AST 77 units/L (5-40) H 01/31/19 21:06 ALT 85 units/L (7-56) H 01/31/19 21:06 Alkaline Phosphatase 72 units/L (35-129) 01/31/19 21:06 Ammonia 25.0 umol/L (25-60) 01/13/19 00:27 Total Creatine Kinase 106 units/L (30-135) 01/13/19 00:27 CK-MB (CK-2) 7.7 ng/mL (0.0-4.0) H 01/13/19 00:27 CK-MB (CK-2) Rel Index 7.2 (0-4) H 01/13/19 00:27 Troponin T < 0.010 ng/mL (0.00-0.029) 01/13/19 00:27 NT-Pro-B Natriuret Pep 52.36 pg/mL (0-900) 01/13/19 00:27 Total Protein 5.3 g/dL (6.3-8.2) L 01/31/19 21:06 Albumin 2.2 g/dL (3.9-5) L 01/31/19 21:06 Albumin/Globulin Ratio 0.7 % 01/31/19 21:06 Urine Color Yellow (Yellow) 01/13/19 02:34 Urine Turbidity Slightly-cloudy (Clear) 01/13/19 02:34 Urine pH 5.0 (5.0-7.0) 01/13/19 02:34 Ur Specific [place] 1.051 (1.003-1.030) H 01/13/19 02:34 Urine Protein <15 mg/dl mg/dL (Negative) 01/13/19 02:34 Urine Glucose (UA) 50 mg/dL (Negative) 01/13/19 02:34 Urine Ketones Neg mg/dL (Negative) 01/13/19 02:34 Urine Blood Neg (Negative) 01/13/19 02:34 Urine Nitrite Neg (Negative) 01/13/19 02:34 Urine Bilirubin Neg (Negative) 01/13/19 02:34 Urine Urobilinogen < 2.0 mg/dL (<2.0) 01/13/19 02:34 Ur Leukocyte Esterase Neg (Negative) 01/13/19 02:34 Urine WBC (Auto) < 1.0 /HPF (0.0-6.0) 01/13/19 02:34 Urine RBC (Auto) < 1.0 /HPF (0.0-6.0) 01/13/19 02:34 U Epithel Cells (Auto) < 1.0 /HPF (0-13.0) 01/13/19 02:34 Urine Bacteria (Auto) 1+ /HPF (Negative) 01/13/19 02:34 Urine Mucus 1+ /HPF 01/13/19 02:34 Blood Type O POSITIVE 01/27/19 16:00 Antibody Screen Negative 01/27/19 16:00 Active Medications - Current Medications Current Medications: Generic Name Dose Route Start Last Admin Trade Name Freq PRN Reason Stop Dose Admin Acetaminophen 650 mg 01/13/19 04:55 02/01/19 17:52 Tylenol AR 650 mg Q6H PRN Administration Pain MILD(1-3)/Fever >100.5/WOOD Albuterol/Ipratropium 1 ampul 02/02/19 08:00 02/03/19 07:26 Duoneb *Not For Prn Use* IH 1 ampul TIDRT JOAN Administration Lipase/Protease/Amylase 1 each 01/31/19 09:[address] 10,500 Unit FEEDTUBE PRN PRN For Clogged Feeding Tube Bisacodyl 10 mg 01/13/19 04:55 01/16/19 11:30 Dulcolax AR 10 mg QDAY PRN Administration constipation unrelieved by MOM Dextrose 25 ml 01/15/19 08:51 01/15/19 09:00 D50w (25gm) Syringe IV 25 ml Q30MIN PRN Administration Hypoglycemia Protocol Haloperidol 5 mg 01/15/19 22:00 02/02/19 21:59 Haldol PO 5 mg QHS JOAN Administration Heparin Sodium (Porcine) 5,000 unit 01/15/19 22:00 02/03/19 09:37 Heparin SUB-Q 5,000 unit Q12HR JOAN Administration Hydralazine HCl 10 mg 01/18/19 18:48 01/18/19 19:36 Apresoline IV 10 mg Q3HR PRN Administration SBP >/=160 Hydrophilic Ointment 1 applic 01/12/19 23:54 Vaseline Lip Therapy TP Q2HR PRN Dry Lips Lorazepam 1 mg 01/20/19 22:00 02/03/19 09:37 Ativan PO 1 mg BID JOAN Administration Multi-Ingred Cream/Lotion/Oil/Oint 1 applic 01/12/19 23:54 Artificial Tears Ophth Oint OU Q4HR PRN Dry Eye(s) Ondansetron HCl 4 mg 01/13/19 04:55 Zofran IV Q8H PRN Nausea And Vomiting Polyethylene Glycol 17 gm 02/01/19 10:00 02/03/19 09:37 Miralax 3350 FEEDTUBE 17 gm QDAY JOAN Administration Quetiapine Fumarate 400 mg 01/22/19 22:00 02/02/19 22:00 Seroquel PO 400 mg QHS JOAN Administration Senna 17.6 mg 02/01/19 10:00 02/03/19 09:37 Senokot FEEDTUBE 17.6 mg Q12HR JOAN Administration Simple Syrup 15 ml 01/31/19 09:41 Simple Syrup FEEDTUBE PRN PRN Hypoglycemia Simple Syrup 30 ml 01/31/19 09:41 Simple Syrup FEEDTUBE PRN PRN Hypoglycemia Sodium Bicarbonate 325 mg 01/31/19 09:41 Sodium Bicarbonate FEEDTUBE PRN PRN For Clogged Feeding Tube Sodium Chloride 10 ml 01/13/19 10:00 02/03/19 09:37 Sodium Chloride Flush Syringe 10 Ml IV 10 ml BID JOAN Administration Sodium Chloride 10 ml 01/13/19 04:55 01/26/19 17:15 Sodium Chloride Flush Syringe 10 Ml IV 10 ml PRN PRN Administration LINE FLUSH Nutrition/Malnutrition Assess - Dietary Evaluation Nutrition/Malnutrition Findings: Nutrition Notes Start: 01/13/19 12:10 Freq: Status: Active Protocol: Document 02/03/19 10:13 LP (Rec: 02/03/19 10:19 LP [id number]) Nutrition Notes Initial or Follow up Reassessment Current Diagnosis Respiratory Failure Other Pertinent Diagnosis Cerebral palsy, Seizure, fecal impaction, dehydration Current Diet Jevity 1.2 at 50ml/hr Labs/Tests Na 135 Pertinent Medications Reviewed Height 5 ft 2 in Weight 38.1 kg [place] Body Weight (kg) 50.00 BMI 15.3 Subjective/Other Information PPN not ordered yesterday. Pt tolerating TF at 50ml/hr (goal rate). Percent of energy/protein needs met: 90%/100% Burn Absent Trauma Absent GI Symptoms None Current % PO Negligible Minimum of two criteria Yes Interpretation of Weight Loss (non- 7.5% in 3 months severe) Body Fat Depletion Moderate depletion (severe) Muscle Mass Moderate Depletion (severe) #2 Nutrition Diagnosis Malnutrition Diagnosis Progress(for reassessment Continues documentation) #1 Nutrition Diagnosis Inadequate oral intake Diagnosis Progress(for reassessment Continues documentation) Is patient on ventilator? No Is Patient Ambulatory and/or Out of Bed No REE-([facility]-confined to bed) 1043.172 Kcal/Kg value to use for calculation 42 Approximate Energy Requirements Using 1600 kcal/Kg Calculation Used for Recommendations Kcal/kg Additional Notes PRO: 46-57g/day (1.2-1.5g/kg) Fluid: 1 ml/kcal Nutrition Intervention Change Diet Order: TF Nutrition Support: Jevity 1.2 at 50ml/hr. Water flush 120ml q4hr. Kcal 1,440 Protein (gm) 66 Fluid (mL) 968 Goal #1 Meet at least 80% of energy and protein needs via TF Anticipated Discharge Needs: TF Follow-Up By: 02/06/19 Additional Comments Follow for stable TF
--- NOTE | 2019-02-03 19:29 | Progress Note ---
Assessment and Plan Patient awake. Weak.Patient bruxing her teeth. Patient is on room air and O2 saturation running 98%. No acute respiratory distress. Patient afebrile. No leukocytosis.Chest xray reported poor inspiration. Probable left lower lobe infiltrate. - Patient Problems (1) Respiratory failure requiring intubation Current Visit: Yes Status: Acute Plan to address problem: Patient intubated and extubated presently on room air. [id number] running at 98% (2) Cerebral palsy Current Visit: Yes Status: Acute Plan to address problem: Aspiration precautions management as per primary care (3) Constipation Current Visit: Yes Status: Acute Plan to address problem: Management as per primary care team (4) Ileus Current Visit: Yes Status: Acute Plan to address problem: Management as per primary care team Subjective Date of service: 02/03/19 Principal diagnosis: Ac Hypoxemic and Hypercapnic Resp failure; Anemia; Cerebral palsy Interval history: Patient awake. Weak.Patient bruxing her teeth. Patient is on room air and O2 saturation 98%. No acute respiratory distress. Patient afebrile. No leukocytosis. Chest xray reported poor inspiration. Probable left lower lobe infiltrate. Objective Vital Signs - 12hr 02/03/19 02/03/19 02/03/19 07:44 07:59 10:00 Temperature 98.9 F Pulse Rate 110 H 104 H Pulse Rate [ 104 H Bilateral Throughout] Respiratory 18 Rate Respiratory 16 Rate [Bilateral Throughout] Blood Pressure 118/68 O2 Sat by Pulse 98 Oximetry 02/03/19 13:45 Temperature Pulse Rate Pulse Rate [ 104 H Bilateral Throughout] Respiratory Rate Respiratory 16 Rate [Bilateral Throughout] Blood Pressure O2 Sat by Pulse Oximetry Constitutional: no acute distress, alert Eyes: non-icteric ENT: oropharynx moist Neck: supple, no lymphadenopathy, no JVD Effort: normal Ascultation: Bilateral: rales, rhonchi, other (referred upper airway sounds) Percussion: Bilateral: not dull Cardiovascular: regular rate and rhythm, other (S1,S2) Gastrointestinal: normoactive bowel sounds, soft, non-tender, non-distended Integumentary: rash Extremities: no cyanosis, no edema, pulses normal, no ischemia or petechiae Neurologic: non-focal exam (grossly), pupils equal and round, other (+ cognitive defect re: cerebral Palsy) Psychiatric: anxious CBC and BMP: 01/31/19 21:06 12/07/19 04:26 ABG, PT/INR, D-dimer: ABG POC ABG pH 7.518 (7.35-7.45) H 01/20/19 16:07 POC ABG pCO2 37.5 (35-45) 01/20/19 16:07 POC ABG pO2 210 (80-105) H 01/20/19 16:07 POC ABG HCO3 30.4 (22-26 mml/L) 01/20/19 16:07 POC ABG Total CO2 32 (23-27mmol/L) 01/20/19 16:07 POC ABG O2 Sat 100 01/20/19 16:07 PT/INR, D-dimer PT 12.9 Sec. (12.2-14.9) 01/26/19 04:12 INR 0.98 (0.87-1.13) 01/26/19 04:12 D-Dimer 135.00 ng/mlDDU (0-234) 01/13/19 00:27 Abnormal lab findings: Abnormal Labs 01/13/19 01/13/19 01/13/19 00:27 00:27 00:27 WBC RBC 3.36 L Hgb Hct Plt Count Lymph % (Auto) 4.2 L [place] % (Auto) Lymph # 0.3 L Seg Neutrophils % 89.1 H Seg Neuts % (Manual) Lymphocytes % (Manual) Seg Neutrophils # Seg Neutrophils # Man Lymphocytes # (Manual) APTT POC ABG pH POC ABG pCO2 POC ABG pO2 VBG pH 7.178 L* Sodium Potassium Chloride 109.1 H Carbon Dioxide 20 L BUN 29 H Creatinine Glucose 175 H POC Glucose Lactic Acid Calcium 7.8 L Phosphorus AST ALT CK-MB (CK-2) 7.7 H CK-MB (CK-2) Rel Index 7.2 H Total Protein 6.0 L Albumin 3.3 L Ur Specific [place] 01/13/19 01/13/19 01/13/19 00:27 02:14 02:22 WBC RBC Hgb Hct Plt Count Lymph % (Auto) [place] % (Auto) Lymph # Seg Neutrophils % Seg Neuts % (Manual) Lymphocytes % (Manual) Seg Neutrophils # Seg Neutrophils # Man Lymphocytes # (Manual) APTT POC ABG pH 7.276 L POC ABG pCO2 49.4 H POC ABG pO2 156 H VBG pH Sodium Potassium Chloride Carbon Dioxide BUN Creatinine Glucose POC Glucose Lactic Acid 2.90 H* 0.30 L Calcium Phosphorus AST ALT CK-MB (CK-2) CK-MB (CK-2) Rel Index Total Protein Albumin Ur Specific [place] 01/13/19 01/13/19 01/14/19 02:22 02:34 05:13 WBC RBC 2.96 L Hgb 9.3 L Hct 27.4 L Plt Count Lymph % (Auto) [place] % (Auto) 11.9 H Lymph # Seg Neutrophils % Seg Neuts % (Manual) Lymphocytes % (Manual) Seg Neutrophils # Seg Neutrophils # Man Lymphocytes # (Manual) APTT 39.4 H POC ABG pH POC ABG pCO2 POC ABG pO2 VBG pH Sodium Potassium Chloride Carbon Dioxide BUN Creatinine Glucose POC Glucose Lactic Acid Calcium Phosphorus AST ALT CK-MB (CK-2) CK-MB (CK-2) Rel Index Total Protein Albumin Ur Specific [place] 1.051 H 01/14/19 01/14/19 01/15/19 05:13 06:06 04:31 WBC RBC Hgb Hct Plt Count Lymph % (Auto) [place] % (Auto) Lymph # Seg Neutrophils % Seg Neuts % (Manual) Lymphocytes % (Manual) Seg Neutrophils # Seg Neutrophils # Man Lymphocytes # (Manual) APTT POC ABG pH POC ABG pCO2 33.7 L POC ABG pO2 121 H 114 H VBG pH Sodium Potassium Chloride Carbon Dioxide 21 L BUN 22 H Creatinine 0.6 L Glucose 62 L POC Glucose Lactic Acid Calcium 8.0 L Phosphorus AST ALT CK-MB (CK-2) CK-MB (CK-2) Rel Index Total Protein Albumin Ur Specific [place] 01/15/19 01/15/19 01/16/19 08:51 10:07 02:56 WBC RBC Hgb Hct Plt Count Lymph % (Auto) [place] % (Auto) Lymph # Seg Neutrophils % Seg Neuts % (Manual) Lymphocytes % (Manual) Seg Neutrophils # Seg Neutrophils # Man Lymphocytes # (Manual) APTT POC ABG pH POC ABG pCO2 POC ABG pO2 VBG pH Sodium Potassium Chloride Carbon Dioxide BUN Creatinine Glucose POC Glucose < 40 L 158 H 142 H Lactic Acid Calcium Phosphorus AST ALT CK-MB (CK-2) CK-MB (CK-2) Rel Index Total Protein Albumin Ur Specific [place] 01/16/19 01/17/1919 17:54 04:06 04:23 WBC RBC Hgb Hct Plt Count Lymph % (Auto) [place] % (Auto) Lymph # Seg Neutrophils % Seg Neuts % (Manual) Lymphocytes % (Manual) Seg Neutrophils # Seg Neutrophils # Man Lymphocytes # (Manual) APTT POC ABG pH POC ABG pCO2 33.7 L POC ABG pO2 VBG pH Sodium Potassium Chloride Carbon Dioxide BUN Creatinine Glucose POC Glucose 123 H 161 H Lactic Acid Calcium Phosphorus AST ALT CK-MB (CK-2) CK-MB (CK-2) Rel Index Total Protein Albumin Ur Specific [place] 01/17/19 01/18/19 01/19/19 11:20 04:34 11:55 WBC RBC Hgb Hct Plt Count Lymph % (Auto) [place] % (Auto) Lymph # Seg Neutrophils % Seg Neuts % (Manual) Lymphocytes % (Manual) Seg Neutrophils # Seg Neutrophils # Man Lymphocytes # (Manual) APTT POC ABG pH 7.498 H 7.484 H POC ABG pCO2 32.1 L POC ABG pO2 121 H 52 L VBG pH Sodium Potassium Chloride Carbon Dioxide BUN Creatinine Glucose POC Glucose Lactic Acid Calcium Phosphorus AST ALT CK-MB (CK-2) CK-MB (CK-2) Rel Index Total Protein Albumin Ur Specific [place] 01/19/19 01/20/19 01/20/19 23:45 06:30 13:22 WBC RBC Hgb Hct Plt Count Lymph % (Auto) [place] % (Auto) Lymph # Seg Neutrophils % Seg Neuts % (Manual) Lymphocytes % (Manual) Seg Neutrophils # Seg Neutrophils # Man Lymphocytes # (Manual) APTT POC ABG pH POC ABG pCO2 POC ABG pO2 VBG pH Sodium Potassium Chloride Carbon Dioxide BUN Creatinine Glucose POC Glucose 128 H 107 H 149 H Lactic Acid Calcium Phosphorus AST ALT CK-MB (CK-2) CK-MB (CK-2) Rel Index Total Protein Albumin Ur Specific [place] 01/20/19 01/20/19 01/20/19 16:07 18:11 22:53 WBC RBC Hgb Hct Plt Count Lymph % (Auto) [place] % (Auto) Lymph # Seg Neutrophils % Seg Neuts % (Manual) Lymphocytes % (Manual) Seg Neutrophils # Seg Neutrophils # Man Lymphocytes # (Manual) APTT POC ABG pH 7.518 H POC ABG pCO2 POC ABG pO2 210 H VBG pH Sodium Potassium Chloride Carbon Dioxide BUN Creatinine Glucose POC Glucose 139 H 166 H Lactic Acid Calcium Phosphorus AST ALT CK-MB (CK-2) CK-MB (CK-2) Rel Index Total Protein Albumin Ur Specific [place] 01/21/19 01/21/19 01/21/19 04:36 04:47 04:47 WBC RBC 2.89 L Hgb 8.9 L Hct 26.7 L Plt Count Lymph % (Auto) 13.0 L [place] % (Auto) 9.6 H Lymph # 0.7 L Seg Neutrophils % 77.0 H Seg Neuts % (Manual) Lymphocytes % (Manual) Seg Neutrophils # Seg Neutrophils # Man Lymphocytes # (Manual) APTT POC ABG pH POC ABG pCO2 POC ABG pO2 VBG pH Sodium 134 L Potassium Chloride 96.9 L Carbon Dioxide BUN 18 H Creatinine 0.4 L Glucose 138 H POC Glucose 138 H Lactic Acid Calcium 8.0 L Phosphorus AST 171 H ALT 102 H CK-MB (CK-2) CK-MB (CK-2) Rel Index Total Protein 5.6 L Albumin 2.2 L Ur Specific [place] 01/22/19 01/22/19 01/22/19 00:31 05:27 12:16 WBC RBC Hgb Hct Plt Count Lymph % (Auto) [place] % (Auto) Lymph # Seg Neutrophils % Seg Neuts % (Manual) Lymphocytes % (Manual) Seg Neutrophils # Seg Neutrophils # Man Lymphocytes # (Manual) APTT POC ABG pH POC ABG pCO2 POC ABG pO2 VBG pH Sodium Potassium Chloride Carbon Dioxide BUN Creatinine Glucose POC Glucose 113 H 106 H 113 H Lactic Acid Calcium Phosphorus AST ALT CK-MB (CK-2) CK-MB (CK-2) Rel Index Total Protein Albumin Ur Specific [place] 01/23/19 01/23/19 01/23/19 00:35 05:43 11:55 WBC RBC Hgb Hct Plt Count Lymph % (Auto) [place] % (Auto) Lymph # Seg Neutrophils % Seg Neuts % (Manual) Lymphocytes % (Manual) Seg Neutrophils # Seg Neutrophils # Man Lymphocytes # (Manual) APTT POC ABG pH POC ABG pCO2 POC ABG pO2 VBG pH Sodium Potassium Chloride Carbon Dioxide BUN Creatinine Glucose POC Glucose 120 H 139 H 119 H Lactic Acid Calcium Phosphorus AST ALT CK-MB (CK-2) CK-MB (CK-2) Rel Index Total Protein Albumin Ur Specific [place] 01/23/19 01/24/19 01/24/19 18:34 00:40 05:42 WBC RBC Hgb Hct Plt Count Lymph % (Auto) [place] % (Auto) Lymph # Seg Neutrophils % Seg Neuts % (Manual) Lymphocytes % (Manual) Seg Neutrophils # Seg Neutrophils # Man Lymphocytes # (Manual) APTT POC ABG pH POC ABG pCO2 POC ABG pO2 VBG pH Sodium Potassium Chloride Carbon Dioxide BUN Creatinine Glucose POC Glucose 146 H 136 H 119 H Lactic Acid Calcium Phosphorus AST ALT CK-MB (CK-2) CK-MB (CK-2) Rel Index Total Protein Albumin Ur Specific [place] 01/24/19 01/25/19 01/25/19 11:35 00:09 06:30 WBC RBC Hgb Hct Plt Count Lymph % (Auto) [place] % (Auto) Lymph # Seg Neutrophils % Seg Neuts % (Manual) Lymphocytes % (Manual) Seg Neutrophils # Seg Neutrophils # Man Lymphocytes # (Manual) APTT POC ABG pH POC ABG pCO2 POC ABG pO2 VBG pH Sodium Potassium Chloride Carbon Dioxide BUN Creatinine Glucose POC Glucose 117 H 119 H 127 H Lactic Acid Calcium Phosphorus AST ALT CK-MB (CK-2) CK-MB (CK-2) Rel Index Total Protein Albumin Ur Specific [place] 01/25/19 01/26/19 01/26/19 12:10 00:21 04:12 WBC RBC 3.05 L Hgb 9.3 L Hct 27.5 L Plt Count Lymph % (Auto) [place] % (Auto) 10.0 H Lymph # 0.9 L Seg Neutrophils % 73.9 H Seg Neuts % (Manual) Lymphocytes % (Manual) Seg Neutrophils # Seg Neutrophils # Man Lymphocytes # (Manual) APTT POC ABG pH POC ABG pCO2 POC ABG pO2 VBG pH Sodium Potassium Chloride Carbon Dioxide BUN Creatinine Glucose POC Glucose 109 H 125 H Lactic Acid Calcium Phosphorus AST ALT CK-MB (CK-2) CK-MB (CK-2) Rel Index Total Protein Albumin Ur Specific [place] 01/26/19 01/27/19 01/27/19 04:12 04:49 04:49 WBC RBC 3.11 L Hgb 9.5 L Hct 28.0 L Plt Count 477 H Lymph % (Auto) 7.4 L [place] % (Auto) Lymph # 0.8 L Seg Neutrophils % 87.7 H Seg Neuts % (Manual) Lymphocytes % (Manual) Seg Neutrophils # 9.0 H Seg Neutrophils # Man Lymphocytes # (Manual) APTT POC ABG pH POC ABG pCO2 POC ABG pO2 VBG pH Sodium 133 L 131 L Potassium 5.4 H D Chloride Carbon Dioxide 20 L BUN 26 H 28 H Creatinine 0.5 L 0.5 L Glucose POC Glucose Lactic Acid Calcium Phosphorus 4.60 H AST 161 H 82 H ALT 208 H 122 H CK-MB (CK-2) CK-MB (CK-2) Rel Index Total Protein 6.2 L Albumin 2.8 L 2.7 L Ur Specific [place] 01/28/19 01/28/19 01/28/19 04:13 04:13 06:14 WBC 14.9 H RBC 2.94 L Hgb 8.9 L Hct 26.5 L Plt Count 514 H Lymph % (Auto) [place] % (Auto) Lymph # Seg Neutrophils % Seg Neuts % (Manual) 93.0 H Lymphocytes % (Manual) 2.0 L Seg Neutrophils # Seg Neutrophils # Man 13.9 H Lymphocytes # (Manual) 0.3 L APTT POC ABG pH POC ABG pCO2 POC ABG pO2 VBG pH Sodium Potassium Chloride Carbon Dioxide 19 L BUN 42 H Creatinine 0.5 L Glucose 134 H POC Glucose 159 H Lactic Acid Calcium Phosphorus AST 91 H ALT 108 H CK-MB (CK-2) CK-MB (CK-2) Rel Index Total Protein 6.1 L Albumin 2.7 L Ur Specific [place] 01/28/19 01/28/19 01/29/19 12:43 17:49 00:13 WBC RBC Hgb Hct Plt Count Lymph % (Auto) [place] % (Auto) Lymph # Seg Neutrophils % Seg Neuts % (Manual) Lymphocytes % (Manual) Seg Neutrophils # Seg Neutrophils # Man Lymphocytes # (Manual) APTT POC ABG pH POC ABG pCO2 POC ABG pO2 VBG pH Sodium Potassium Chloride Carbon Dioxide BUN Creatinine Glucose POC Glucose 159 H 151 H 148 H Lactic Acid Calcium Phosphorus AST ALT CK-MB (CK-2) CK-MB (CK-2) Rel Index Total Protein Albumin Ur Specific [place] 01/29/19 01/29/19 01/29/19 07:00 07:43 08:47 WBC RBC Hgb Hct Plt Count Lymph % (Auto) [place] % (Auto) Lymph # Seg Neutrophils % Seg Neuts % (Manual) Lymphocytes % (Manual) Seg Neutrophils # Seg Neutrophils # Man Lymphocytes # (Manual) APTT POC ABG pH POC ABG pCO2 POC ABG pO2 VBG pH Sodium Potassium 3.4 L Chloride Carbon Dioxide 21 L BUN 46 H Creatinine 0.3 L Glucose 117 H POC Glucose 130 H 144 H Lactic Acid Calcium Phosphorus AST ALT CK-MB (CK-2) CK-MB (CK-2) Rel Index Total Protein Albumin Ur Specific [place] 01/29/19 01/29/19 01/30/19 11:31 16:21 00:33 WBC RBC Hgb Hct Plt Count Lymph % (Auto) [place] % (Auto) Lymph # Seg Neutrophils % Seg Neuts % (Manual) Lymphocytes % (Manual) Seg Neutrophils # Seg Neutrophils # Man Lymphocytes # (Manual) APTT POC ABG pH POC ABG pCO2 POC ABG pO2 VBG pH Sodium Potassium Chloride Carbon Dioxide BUN Creatinine Glucose POC Glucose 133 H 138 H 159 H Lactic Acid Calcium Phosphorus AST ALT CK-MB (CK-2) CK-MB (CK-2) Rel Index Total Protein Albumin Ur Specific [place] 01/30/19 01/30/19 01/30/19 04:13 06:04 07:34 WBC RBC Hgb Hct Plt Count Lymph % (Auto) [place] % (Auto) Lymph # Seg Neutrophils % Seg Neuts % (Manual) Lymphocytes % (Manual) Seg Neutrophils # Seg Neutrophils # Man Lymphocytes # (Manual) APTT POC ABG pH POC ABG pCO2 POC ABG pO2 VBG pH Sodium Potassium 3.3 L Chloride Carbon Dioxide BUN 34 H Creatinine 0.3 L Glucose 156 H POC Glucose 136 H 130 H Lactic Acid Calcium Phosphorus AST ALT CK-MB (CK-2) CK-MB (CK-2) Rel Index Total Protein Albumin Ur Specific [place] 01/30/19 01/30/19 01/31/19 12:36 18:55 05:16 WBC RBC Hgb Hct Plt Count Lymph % (Auto) [place] % (Auto) Lymph # Seg Neutrophils % Seg Neuts % (Manual) Lymphocytes % (Manual) Seg Neutrophils # Seg Neutrophils # Man Lymphocytes # (Manual) APTT POC ABG pH POC ABG pCO2 POC ABG pO2 VBG pH Sodium Potassium Chloride Carbon Dioxide BUN 29 H Creatinine 0.3 L Glucose 129 H POC Glucose 134 H 114 H Lactic Acid Calcium Phosphorus AST ALT CK-MB (CK-2) CK-MB (CK-2) Rel Index Total Protein Albumin Ur Specific [place] 01/31/19 01/31/19 01/31/19 11:32 16:58 21:06 WBC RBC 2.76 L Hgb 8.6 L Hct 25.0 L Plt Count 478 H Lymph % (Auto) 9.7 L [place] % (Auto) Lymph # 0.6 L Seg Neutrophils % 85.3 H Seg Neuts % (Manual) Lymphocytes % (Manual) Seg Neutrophils # Seg Neutrophils # Man Lymphocytes # (Manual) APTT POC ABG pH POC ABG pCO2 POC ABG pO2 VBG pH Sodium Potassium Chloride Carbon Dioxide BUN Creatinine Glucose POC Glucose 127 H 141 H Lactic Acid Calcium Phosphorus AST ALT CK-MB (CK-2) CK-MB (CK-2) Rel Index Total Protein Albumin Ur Specific [place] 01/31/19 02/01/19 02/01/19 21:06 00:22 04:56 WBC RBC Hgb Hct Plt Count Lymph % (Auto) [place] % (Auto) Lymph # Seg Neutrophils % Seg Neuts % (Manual) Lymphocytes % (Manual) Seg Neutrophils # Seg Neutrophils # Man Lymphocytes # (Manual) APTT POC ABG pH POC ABG pCO2 POC ABG pO2 VBG pH Sodium Potassium Chloride Carbon Dioxide BUN 32 H 27 H Creatinine 0.3 L 0.3 L Glucose 122 H 117 H POC Glucose 133 H Lactic Acid Calcium 8.1 L Phosphorus AST 77 H ALT 85 H CK-MB (CK-2) CK-MB (CK-2) Rel Index Total Protein 5.3 L Albumin 2.2 L Ur Specific [place] 02/01/19 02/01/19 02/01/19 06:35 11:54 18:10 WBC RBC Hgb Hct Plt Count Lymph % (Auto) [place] % (Auto) Lymph # Seg Neutrophils % Seg Neuts % (Manual) Lymphocytes % (Manual) Seg Neutrophils # Seg Neutrophils # Man Lymphocytes # (Manual) APTT POC ABG pH POC ABG pCO2 POC ABG pO2 VBG pH Sodium Potassium Chloride Carbon Dioxide BUN Creatinine Glucose POC Glucose 112 H 139 H 120 H Lactic Acid Calcium Phosphorus AST ALT CK-MB (CK-2) CK-MB (CK-2) Rel Index Total Protein Albumin Ur Specific [place] 02/02/19 02/02/19 02/02/19 00:42 05:01 05:51 WBC RBC Hgb Hct Plt Count Lymph % (Auto) [place] % (Auto) Lymph # Seg Neutrophils % Seg Neuts % (Manual) Lymphocytes % (Manual) Seg Neutrophils # Seg Neutrophils # Man Lymphocytes # (Manual) APTT POC ABG pH POC ABG pCO2 POC ABG pO2 VBG pH Sodium 133 L Potassium Chloride Carbon Dioxide BUN 24 H Creatinine 0.3 L Glucose 130 H POC Glucose 157 H 126 H Lactic Acid Calcium 8.1 L Phosphorus AST ALT CK-MB (CK-2) CK-MB (CK-2) Rel Index Total Protein Albumin Ur Specific [place] 02/02/19 02/02/19 02/03/19 11:57 18:46 04:26 WBC RBC Hgb Hct Plt Count Lymph % (Auto) [place] % (Auto) Lymph # Seg Neutrophils % Seg Neuts % (Manual) Lymphocytes % (Manual) Seg Neutrophils # Seg Neutrophils # Man Lymphocytes # (Manual) APTT POC ABG pH POC ABG pCO2 POC ABG pO2 VBG pH Sodium 135 L Potassium Chloride Carbon Dioxide 21 L BUN 18 H Creatinine 0.3 L Glucose 109 H POC Glucose 130 H 115 H Lactic Acid Calcium 7.8 L Phosphorus AST ALT CK-MB (CK-2) CK-MB (CK-2) Rel Index Total Protein Albumin Ur Specific [place] 02/03/19 02/03/19 02/03/19 06:46 11:29 18:19 WBC RBC Hgb Hct Plt Count Lymph % (Auto) [place] % (Auto) Lymph # Seg Neutrophils % Seg Neuts % (Manual) Lymphocytes % (Manual) Seg Neutrophils # Seg Neutrophils # Man Lymphocytes # (Manual) APTT POC ABG pH POC ABG pCO2 POC ABG pO2 VBG pH Sodium Potassium Chloride Carbon Dioxide BUN Creatinine Glucose POC Glucose 115 H 115 H 124 H Lactic Acid Calcium Phosphorus AST ALT CK-MB (CK-2) CK-MB (CK-2) Rel Index Total Protein Albumin Ur Specific [place] Chest x-ray: report reviewed (Poor inspiration, Probable left lower lobe infiltrate.), image reviewed Allied health notes reviewed: nursing
[2019-02-03] MEDS: QUEtiapine 200 MG TAB PO SCH (22:13)
[2019-02-03] MEDS: HALOPERIDOL 5 MG TAB PO SCH (22:13)
[2019-02-04] MEDS: IPRATROPIUM/ALBUTEROL SULFATE 3 ML AMPUL.NEB IH SCH ×3 (00:05→13:14)
[2019-02-04] MEDS: LORazepam 1 MG TAB PO SCH ×2 (09:10→23:05)
[2019-02-04] MEDS: HEPARIN 5,000 UNIT/1 ML VIAL SUB-Q SCH ×2 (09:10→23:06)
--- NOTE | 2019-02-04 17:13 | Progress Note ---
Assessment and Plan Assessment and plan: Patient is a 68-year-old woman with a history of cerebral palsy, mental retardation, unspecified mental disorder and chronic constipation who presented to [facility] ED on 01/12/19 with SOB, respiratory distress, constipation and increasing swelling of the abdomen. Patient's sister Angelique Meza is her caregiver/roommate noticed that patient abdomen was more distended than usual. It was discovered thru collateral history from Ms. Meza that patient has a well-established history of Pica-like behavior. Pt had a PEG tube placed 15 years ago but she pulled out. Since then she has been able to eat without any difficulties until recently. Patient went to the bathroom and had a large hard bowel movement followed by an acute episode of severe shortness of breath and respiratory distress. Upon arrival to the ED, patient was on 100% O2 NRB mask with agonal respirations. She was confused and unresponsive; therefore, she was intubated via ETT. Abdomen was noted to be hard and distended. Of note, Patient's only previous abdominal surgical history was the PEG tube placement which is no longer present. CT of the abdomen shows fecal impaction. She was admitted to ICU. She was extubated on 01/18/19. However, the abdominal distension persisted after multiple bowel treatments, the fecal impaction was felt to be resolved. Nonetheless, she failed her swallow study and was subsequently set up for PEG tube placement by GI. Then on 01/26/[address] Bruce found foreign bodies (pieces of plastic) in the stomach. Dr. Bruce felt they may be contributing to her bowel issues. He was unable to remove them due to the large size. Therefore, he requested general surgery consult. Then on 01/27/19, She underwent exploratory laparatomy and plastic glove was found in the cecum.. It was removed and Gastro-Jejunostomy tube was place. She was started on PPN and re-feeding via tube feeding has been very gradual. 01/26/2019 EGD with attempted foreign body removal Pre-op diagnosis: Neurogenic Dysphagia Post-op diagnosis: other (Foreign Body Stomach) Findings: 1. Large pieces of plastic in stomach; unable to remove through GE junction despite rat tooth forceps, snare, or Gunn net, 2. Able to traverse pylorus (once plastic pushed to side), 3. Small hiatal hernia, 4. LA Grade A esophagitis Date of procedure: 01/27/19 (dictation: [id number]) Pre-op diagnosis: foreign body ingestion Post-op diagnosis: same Findings: plastic glove found in cecum. Procedure: Ex Lap, Gastro-Jejunostomy tube placement, removal of foreign body from cecum Diagnoses: Acute combined respiratory failure s/p MV > 96 hours; stable on nasal canula Dyphagia and Foreign body removal s/p Ex-lap: General Surgery following SBO/ileus: TPN ,monitor electrolytes Acute metabolic encephalopathy as above Hyperkalemia; monitor bmp closely calcium chloride Transaminitis; Monitor LFTs closely, consult GI if needed Cerebral palsy history of cerebral palsy. Fecal impaction: Resolved, stool softeners as needed. Severe malnutrition, bmi 15.3: [employer] following new issue is tachycardia, get ekg and start remote monitoring, re-feeding syndrome, improving DVT prophylaxis On Heparin SQ. Disposition: continue inpatient care, await placement, PPN stopped and tube feeding at goal, ready for discharge today D/W sister Angelique Meza History Interval history: Patient was seen and examined. Follow-up on current diagnosis. No overnight events reported to me. Not cooperative today. Nonverbal. Imaging, nursing note, chart, labs and old chart reviewed. Hospitalist Physical - Physical exam Narrative exam: Gen: cachetic, bmi 15.3, nonverbal CVS/Heart: Regular tachycardia, normal S1S2, pulses present bilaterally Chest/Lungs: Symmetrical chest expansion, good air entry bilaterally GI/Abdomen: soft, PEG and binder in place /Bladder: no suprapubic tenderness, no CVA or paraspinal tenderness Extermity/Skin: atrophic limbs MSK: contracted limbs Neuro: CN 2-12 grossly intact, doesn't follow commands Psych: calm but confused - Constitutional Vitals: Temp Pulse Resp BP Pulse Ox 98.7 F 106 H 16 118/77 100 02/03/19 19:28 02/04/19 13:15 02/04/19 13:15 02/03/19 19:27 02/03/19 22:00 General appearance: Present: no acute distress. Absent: well-nourished Results - Labs CBC & Chem 7: 01/31/19 21:06 02/03/19 04:26 Labs: Laboratory Last Values WBC 6.0 K/mm3 (4.5-11.0) 01/31/19 21:06 RBC 2.76 M/mm3 (3.65-5.03) L 01/31/19 21:06 Hgb 8.6 gm/dl (10.1-14.3) L 01/31/19 21:06 Hct 25.0 % (30.3-42.9) L 01/31/19 21:06 MCV 91 fl (79-97) 01/31/19 21:06 MCH 31 pg (28-32) 01/31/19 21:06 MCHC 34 % (30-34) 01/31/19 21:06 RDW 13.7 % (13.2-15.2) 01/31/19 21:06 Plt Count 478 K/mm3 (140-440) H 01/31/19 21:06 Lymph % (Auto) 9.7 % (13.4-35.0) L 01/31/19 21:06 [place] % (Auto) 4.4 % (0.0-7.3) 01/31/19 21:06 Eos % (Auto) 0.2 % (0.0-4.3) 01/31/19 21:06 Baso % (Auto) 0.4 % (0.0-1.8) 01/31/19 21:06 Lymph # 0.6 K/mm3 (1.2-5.4) L 01/31/19 21:06 Carolina # 0.3 K/mm3 (0.0-0.8) 01/31/19 21:06 Eos # 0.0 K/mm3 (0.0-0.4) 01/31/19 21:06 Baso # 0.0 K/mm3 (0.0-0.1) 01/31/19 21:06 Add Manual Diff Complete 01/28/19 04:13 Total Counted 100 01/28/19 04:13 Seg Neutrophils % 85.3 % (40.0-70.0) H 01/31/19 21:06 Seg Neuts % (Manual) 93.0 % (40.0-70.0) H 01/28/19 04:13 Band Neutrophils % 2.0 % 01/28/19 04:13 Lymphocytes % (Manual) 2.0 % (13.4-35.0) L 01/28/19 04:13 Reactive Lymphs % (Man) 0 % 01/28/19 04:13 Monocytes % (Manual) 3.0 % (0.0-7.3) 01/28/19 04:13 Eosinophils % (Manual) 0 % (0.0-4.3) 01/28/19 04:13 Basophils % (Manual) 0 % (0.0-1.8) 01/28/19 04:13 Metamyelocytes % 0 % 01/28/19 04:13 Myelocytes % 0 % 01/28/19 04:13 Promyelocytes % 0 % 01/28/19 04:13 Blast Cells % 0 % 01/28/19 04:13 Nucleated RBC % Not Reportable 01/28/19 04:13 Seg Neutrophils # 5.1 K/mm3 (1.8-7.7) 01/31/19 21:06 Seg Neutrophils # Man 13.9 K/mm3 (1.8-7.7) H 01/28/19 04:13 Band Neutrophils # 0.3 K/mm3 01/28/19 04:13 Lymphocytes # (Manual) 0.3 K/mm3 (1.2-5.4) L 01/28/19 04:13 Abs React Lymphs (Man) 0.0 K/mm3 01/28/19 04:13 Monocytes # (Manual) 0.4 K/mm3 (0.0-0.8) 01/28/19 04:13 Eosinophils # (Manual) 0.0 K/mm3 (0.0-0.4) 01/28/19 04:13 Basophils # (Manual) 0.0 K/mm3 (0.0-0.1) 01/28/19 04:13 Metamyelocytes # 0.0 K/mm3 01/28/19 04:13 Myelocytes # 0.0 K/mm3 01/28/19 04:13 Promyelocytes # 0.0 K/mm3 01/28/19 04:13 Blast Cells # 0.0 K/mm3 01/28/19 04:13 WBC Morphology Not Reportable 01/28/19 04:13 Hypersegmented Neuts Not Reportable 01/28/19 04:13 Hyposegmented Neuts Not Reportable 01/28/19 04:13 Hypogranular Neuts Not Reportable 01/28/19 04:13 Smudge Cells Not Reportable 01/28/19 04:13 Toxic Granulation Not Reportable 01/28/19 04:13 Toxic Vacuolation Not Reportable 01/28/19 04:13 Dohle Bodies Not Reportable 01/28/19 04:13 Pelger-Huet Anomaly Not Reportable 01/28/19 04:13 Shivani Rods Not Reportable 01/28/19 04:13 Platelet Estimate Consistent w auto 01/28/19 04:13 Clumped Platelets Not Reportable 01/28/19 04:13 Plt Clumps, EDTA Not Reportable 01/28/19 04:13 Large Platelets Not Reportable 01/28/19 04:13 Giant Platelets Not Reportable 01/28/19 04:13 Platelet Satelliting Not Reportable 01/28/19 04:13 Plt Morphology Comment Not Reportable 01/28/19 04:13 RBC Morphology Not Reportable 01/28/19 04:13 Dimorphic RBCs Not Reportable 01/28/19 04:13 Polychromasia Not Reportable 01/28/19 04:13 Hypochromasia Not Reportable 01/28/19 04:13 Poikilocytosis Not Reportable 01/28/19 04:13 Anisocytosis 1+ 01/28/19 04:13 Microcytosis Not Reportable 01/28/19 04:13 Macrocytosis Not Reportable 01/28/19 04:13 Spherocytes Not Reportable 01/28/19 04:13 Pappenheimer Bodies Not Reportable 01/28/19 04:13 Sickle Cells Not Reportable 01/28/19 04:13 Target Cells Not Reportable 01/28/19 04:13 Tear Drop Cells Not Reportable 01/28/19 04:13 Ovalocytes Not Reportable 01/28/19 04:13 Helmet Cells Not Reportable 01/28/19 04:13 Ragsdale-Manlius Bodies Not Reportable 01/28/19 04:13 Ivanhoe Rings Not Reportable 01/28/19 04:13 Mize Cells Not Reportable 01/28/19 04:13 Bite Cells Not Reportable 01/28/19 04:13 Crenated Cell Not Reportable 01/28/19 04:13 Elliptocytes Not Reportable 01/28/19 04:13 Acanthocytes (Spur) Not Reportable 01/28/19 04:13 Rouleaux Not Reportable 01/28/19 04:13 Hemoglobin C Crystals Not Reportable 01/28/19 04:13 Schistocytes Not Reportable 01/28/19 04:13 Malaria parasites Not Reportable 01/28/19 04:13 Sebas Bodies Not Reportable 01/28/19 04:13 Hem Pathologist Commnt No 01/28/19 04:13 PT 12.9 Sec. (12.2-14.9) 01/26/19 04:12 INR 0.98 (0.87-1.13) 01/26/19 04:12 APTT 31.9 Sec. (24.2-36.6) 01/14/19 05:13 D-Dimer 135.00 ng/mlDDU (0-234) 01/13/19 00:27 POC ABG pH 7.518 (7.35-7.45) H 01/20/19 16:07 POC ABG pCO2 37.5 (35-45) 01/20/19 16:07 POC ABG pO2 210 (80-105) H 01/20/19 16:07 POC ABG HCO3 30.4 (22-26 mml/L) 01/20/19 16:07 POC ABG Total CO2 32 (23-27mmol/L) 01/20/19 16:07 POC ABG O2 Sat 100 01/20/19 16:07 POC ABG Base Excess 8 ((-2) - (+3)mmol/L) 01/20/19 16:07 VBG pH 7.178 (7.320-7.420) L* 01/13/19 00:27 FiO2 50 % 01/20/19 16:07 Sodium 135 mmol/L (137-145) L 02/03/19 04:26 Potassium 4.2 mmol/L (3.6-5.0) 02/03/19 04:26 Chloride 100.6 mmol/L (98-107) 02/03/19 04:26 Carbon Dioxide 21 mmol/L (22-30) L 02/03/19 04:26 Anion Gap 18 mmol/L 02/03/19 04:26 BUN 18 mg/dL (7-17) H 02/03/19 04:26 Creatinine 0.3 mg/dL (0.7-1.2) L 02/03/19 04:26 Estimated GFR > 60 ml/min 02/03/19 04:26 BUN/Creatinine Ratio 60 % 02/03/19 04:26 Glucose 109 mg/dL (65-100) H 02/03/19 04:26 POC Glucose 118 (70-105) H 02/04/19 16:48 Lactic Acid 0.30 mmol/L (0.7-2.0) L 01/13/19 02:22 Calcium 7.8 mg/dL (8.4-10.2) L 02/03/19 04:26 Phosphorus 3.10 mg/dL (2.5-4.5) 02/03/19 04:26 Magnesium 1.90 mg/dL (1.7-2.3) 02/03/19 04:26 Total Bilirubin 0.20 mg/dL (0.1-1.2) 01/31/19 21:06 AST 77 units/L (5-40) H 01/31/19 21:06 ALT 85 units/L (7-56) H 01/31/19 21:06 Alkaline Phosphatase 72 units/L (35-129) 01/31/19 21:06 Ammonia 25.0 umol/L (25-60) 01/13/19 00:27 Total Creatine Kinase 106 units/L (30-135) 01/13/19 00:27 CK-MB (CK-2) 7.7 ng/mL (0.0-4.0) H 01/13/19 00:27 CK-MB (CK-2) Rel Index 7.2 (0-4) H 01/13/19 00:27 Troponin T < 0.010 ng/mL (0.00-0.029) 01/13/19 00:27 NT-Pro-B Natriuret Pep 52.36 pg/mL (0-900) 01/13/19 00:27 Total Protein 5.3 g/dL (6.3-8.2) L 01/31/19 21:06 Albumin 2.2 g/dL (3.9-5) L 01/31/19 21:06 Albumin/Globulin Ratio 0.7 % 01/31/19 21:06 Urine Color Yellow (Yellow) 01/13/19 02:34 Urine Turbidity Slightly-cloudy (Clear) 01/13/19 02:34 Urine pH 5.0 (5.0-7.0) 01/13/19 02:34 Ur Specific Bayard 1.051 (1.003-1.030) H 01/13/19 02:34 Urine Protein <15 mg/dl mg/dL (Negative) 01/13/19 02:34 Urine Glucose (UA) 50 mg/dL (Negative) 01/13/19 02:34 Urine Ketones Neg mg/dL (Negative) 01/13/19 02:34 Urine Blood Neg (Negative) 01/13/19 02:34 Urine Nitrite Neg (Negative) 01/13/19 02:34 Urine Bilirubin Neg (Negative) 01/13/19 02:34 Urine Urobilinogen < 2.0 mg/dL (<2.0) 01/13/19 02:34 Ur Leukocyte Esterase Neg (Negative) 01/13/19 02:34 Urine WBC (Auto) < 1.0 /HPF (0.0-6.0) 01/13/19 02:34 Urine RBC (Auto) < 1.0 /HPF (0.0-6.0) 01/13/19 02:34 U Epithel Cells (Auto) < 1.0 /HPF (0-13.0) 01/13/19 02:34 Urine Bacteria (Auto) 1+ /HPF (Negative) 01/13/19 02:34 Urine Mucus 1+ /HPF 01/13/19 02:34 Blood Type O POSITIVE 01/27/19 16:00 Antibody Screen Negative 01/27/19 16:00 Active Medications - Current Medications Current Medications: Generic Name Dose Route Start Last Admin Trade Name Freq PRN Reason Stop Dose Admin Acetaminophen 650 mg 01/13/19 04:55 02/01/19 17:52 Tylenol NV 650 mg Q6H PRN Administration Pain MILD(1-3)/Fever >100.5/WOOD Albuterol/Ipratropium 1 ampul 02/02/19 08:00 02/04/19 13:14 Duoneb *Not For Prn Use* IH 1 ampul TIDRT JOAN Administration Lipase/Protease/Amylase 1 each 01/31/19 09:[address] 10,500 Unit FEEDTUBE PRN PRN For Clogged Feeding Tube Bisacodyl 10 mg 01/13/19 04:55 01/16/19 11:30 Dulcolax NV 10 mg QDAY PRN Administration constipation unrelieved by MOM Dextrose 25 ml 01/15/19 08:51 01/15/19 09:00 D50w (25gm) Syringe IV 25 ml Q30MIN PRN Administration Hypoglycemia Protocol Haloperidol 5 mg 01/15/19 22:00 02/03/19 22:13 Haldol PO 5 mg QHS JOAN Administration Heparin Sodium (Porcine) 5,000 unit 01/15/19 22:00 02/04/19 09:10 Heparin SUB-Q 5,000 unit Q12HR JOAN Administration Hydralazine HCl 10 mg 01/18/19 18:48 01/18/19 19:36 Apresoline IV 10 mg Q3HR PRN Administration SBP >/=160 Hydrophilic Ointment 1 applic 01/12/19 23:54 Vaseline Lip Therapy TP Q2HR PRN Dry Lips Lorazepam 1 mg 01/20/19 22:00 02/04/19 09:10 Ativan PO 1 mg BID JOAN Administration Multi-Ingred Cream/Lotion/Oil/Oint 1 applic 01/12/19 23:54 Artificial Tears Ophth Oint OU Q4HR PRN Dry Eye(s) Ondansetron HCl 4 mg 01/13/19 04:55 Zofran IV Q8H PRN Nausea And Vomiting Quetiapine Fumarate 400 mg 01/22/19 22:00 02/03/19 22:13 Seroquel PO 400 mg QHS OJAN Administration Simple Syrup 15 ml 01/31/19 09:41 Simple Syrup FEEDTUBE PRN PRN Hypoglycemia Simple Syrup 30 ml 01/31/19 09:41 Simple Syrup FEEDTUBE PRN PRN Hypoglycemia Sodium Bicarbonate 325 mg 01/31/19 09:41 Sodium Bicarbonate FEEDTUBE PRN PRN For Clogged Feeding Tube Sodium Chloride 10 ml 01/13/19 10:00 02/04/19 09:10 Sodium Chloride Flush Syringe 10 Ml IV 10 ml BID JOAN Administration Sodium Chloride 10 ml 01/13/19 04:55 01/26/19 17:15 Sodium Chloride Flush Syringe 10 Ml IV 10 ml PRN PRN Administration LINE FLUSH Nutrition/Malnutrition Assess - Dietary Evaluation Nutrition/Malnutrition Findings: Nutrition Notes Start: 01/13/19 12:10 Freq: Status: Active Protocol: Document 02/03/19 10:13 LP (Rec: 02/03/19 10:19 LP [id number]) Nutrition Notes Initial or Follow up Reassessment Current Diagnosis Respiratory Failure Other Pertinent Diagnosis Cerebral palsy, Seizure, fecal impaction, dehydration Current Diet Jevity 1.2 at 50ml/hr Labs/Tests Na 135 Pertinent Medications Reviewed Height 5 ft 2 in Weight 38.1 kg [place] Body Weight (kg) 50.00 BMI 15.3 Subjective/Other Information PPN not ordered yesterday. Pt tolerating TF at 50ml/hr (goal rate). Percent of energy/protein needs met: 90%/100% Burn Absent Trauma Absent GI Symptoms None Current % PO Negligible Minimum of two criteria Yes Interpretation of Weight Loss (non- 7.5% in 3 months severe) Body Fat Depletion Moderate depletion (severe) Muscle Mass Moderate Depletion (severe) #2 Nutrition Diagnosis Malnutrition Diagnosis Progress(for reassessment Continues documentation) #1 Nutrition Diagnosis Inadequate oral intake Diagnosis Progress(for reassessment Continues documentation) Is patient on ventilator? No Is Patient Ambulatory and/or Out of Bed No REE-([facility]-confined to bed) 1043.172 Kcal/Kg value to use for calculation 42 Approximate Energy Requirements Using 1600 kcal/Kg Calculation Used for Recommendations Kcal/kg Additional Notes PRO: 46-57g/day (1.2-1.5g/kg) Fluid: 1 ml/kcal Nutrition Intervention Change Diet Order: TF Nutrition Support: Jevity 1.2 at 50ml/hr. Water flush 120ml q4hr. Kcal 1,440 Protein (gm) 66 Fluid (mL) 968 Goal #1 Meet at least 80% of energy and protein needs via TF Anticipated Discharge Needs: TF Follow-Up By: 02/06/19 Additional Comments Follow for stable TF
--- NOTE | 2019-02-04 19:34 | Progress Note ---
Assessment and Plan Patient awake. Weak.Patient bruxing her teeth. Patient is on room air . No acute respiratory distress. Patient afebrile. No leukocytosis.Chest xray reported poor inspiration. Probable left lower lobe infiltrate. - Patient Problems (1) Respiratory failure requiring intubation Current Visit: Yes Status: Acute Plan to address problem: Patient intubated and extubated presently on room air. [id number] running at 98% (2) Cerebral palsy Current Visit: Yes Status: Acute Plan to address problem: Aspiration precautions management as per primary care (3) Constipation Current Visit: Yes Status: Acute Plan to address problem: Management as per primary care team (4) Ileus Current Visit: Yes Status: Acute Plan to address problem: Management as per primary care team Subjective Date of service: 02/04/19 Principal diagnosis: Ac Hypoxemic and Hypercapnic Resp failure; Anemia; Cerebral palsy Interval history: Patient awake. Weak.Patient bruxing her teeth. Patient is on room air No acute respiratory distress. Patient afebrile. No leukocytosis. Chest xray reported poor inspiration. Probable left lower lobe infiltrate. Objective Vital Signs - 12hr 02/04/19 02/04/19 02/04/19 09:17 10:00 13:15 Pulse Rate 125 H Pulse Rate [ 103 H 106 H Bilateral Throughout] Respiratory 16 16 Rate [Bilateral Throughout] Constitutional: no acute distress, alert Eyes: non-icteric ENT: oropharynx moist Neck: supple, no lymphadenopathy, no JVD Effort: normal Ascultation: Bilateral: rales, rhonchi, other (referred upper airway sounds) Percussion: Bilateral: not dull Cardiovascular: regular rate and rhythm, other (S1,S2) Gastrointestinal: normoactive bowel sounds, soft, non-tender, non-distended Integumentary: rash Extremities: no cyanosis, no edema, pulses normal, no ischemia or petechiae Neurologic: non-focal exam (grossly), pupils equal and round, other (+ cognitive defect re: cerebral Palsy) Psychiatric: anxious CBC and BMP: 01/31/19 21:06 02/03/19 04:26 ABG, PT/INR, D-dimer: ABG POC ABG pH 7.518 (7.35-7.45) H 01/20/19 16:07 POC ABG pCO2 37.5 (35-45) 01/20/19 16:07 POC ABG pO2 210 (80-105) H 01/20/19 16:07 POC ABG HCO3 30.4 (22-26 mml/L) 01/20/19 16:07 POC ABG Total CO2 32 (23-27mmol/L) 01/20/19 16:07 POC ABG O2 Sat 100 01/20/19 16:07 PT/INR, D-dimer PT 12.9 Sec. (12.2-14.9) 01/26/19 04:12 INR 0.98 (0.87-1.13) 01/26/19 04:12 D-Dimer 135.00 ng/mlDDU (0-234) 01/13/19 00:27 Abnormal lab findings: Abnormal Labs 01/13/19 01/13/19 01/13/19 00:27 00:27 00:27 WBC RBC 3.36 L Hgb Hct Plt Count Lymph % (Auto) 4.2 L [place] % (Auto) Lymph # 0.3 L Seg Neutrophils % 89.1 H Seg Neuts % (Manual) Lymphocytes % (Manual) Seg Neutrophils # Seg Neutrophils # Man Lymphocytes # (Manual) APTT POC ABG pH POC ABG pCO2 POC ABG pO2 VBG pH 7.178 L* Sodium Potassium Chloride 109.1 H Carbon Dioxide 20 L BUN 29 H Creatinine Glucose 175 H POC Glucose Lactic Acid Calcium 7.8 L Phosphorus AST ALT CK-MB (CK-2) 7.7 H CK-MB (CK-2) Rel Index 7.2 H Total Protein 6.0 L Albumin 3.3 L Ur Specific [place] 01/13/19 01/13/19 01/13/19 00:27 02:14 02:22 WBC RBC Hgb Hct Plt Count Lymph % (Auto) [place] % (Auto) Lymph # Seg Neutrophils % Seg Neuts % (Manual) Lymphocytes % (Manual) Seg Neutrophils # Seg Neutrophils # Man Lymphocytes # (Manual) APTT POC ABG pH 7.276 L POC ABG pCO2 49.4 H POC ABG pO2 156 H VBG pH Sodium Potassium Chloride Carbon Dioxide BUN Creatinine Glucose POC Glucose Lactic Acid 2.90 H* 0.30 L Calcium Phosphorus AST ALT CK-MB (CK-2) CK-MB (CK-2) Rel Index Total Protein Albumin Ur Specific [place] 01/13/19 01/13/19 01/14/19 02:22 02:34 05:13 WBC RBC 2.96 L Hgb 9.3 L Hct 27.4 L Plt Count Lymph % (Auto) [place] % (Auto) 11.9 H Lymph # Seg Neutrophils % Seg Neuts % (Manual) Lymphocytes % (Manual) Seg Neutrophils # Seg Neutrophils # Man Lymphocytes # (Manual) APTT 39.4 H POC ABG pH POC ABG pCO2 POC ABG pO2 VBG pH Sodium Potassium Chloride Carbon Dioxide BUN Creatinine Glucose POC Glucose Lactic Acid Calcium Phosphorus AST ALT CK-MB (CK-2) CK-MB (CK-2) Rel Index Total Protein Albumin Ur Specific [place] 1.051 H 01/14/19 01/14/19 01/15/19 05:13 06:06 04:31 WBC RBC Hgb Hct Plt Count Lymph % (Auto) [place] % (Auto) Lymph # Seg Neutrophils % Seg Neuts % (Manual) Lymphocytes % (Manual) Seg Neutrophils # Seg Neutrophils # Man Lymphocytes # (Manual) APTT POC ABG pH POC ABG pCO2 33.7 L POC ABG pO2 121 H 114 H VBG pH Sodium Potassium Chloride Carbon Dioxide 21 L BUN 22 H Creatinine 0.6 L Glucose 62 L POC Glucose Lactic Acid Calcium 8.0 L Phosphorus AST ALT CK-MB (CK-2) CK-MB (CK-2) Rel Index Total Protein Albumin Ur Specific [place] 01/15/19 01/15/19 01/16/19 08:51 10:07 02:56 WBC RBC Hgb Hct Plt Count Lymph % (Auto) [place] % (Auto) Lymph # Seg Neutrophils % Seg Neuts % (Manual) Lymphocytes % (Manual) Seg Neutrophils # Seg Neutrophils # Man Lymphocytes # (Manual) APTT POC ABG pH POC ABG pCO2 POC ABG pO2 VBG pH Sodium Potassium Chloride Carbon Dioxide BUN Creatinine Glucose POC Glucose < 40 L 158 H 142 H Lactic Acid Calcium Phosphorus AST ALT CK-MB (CK-2) CK-MB (CK-2) Rel Index Total Protein Albumin Ur Specific [place] 01/16/19 01/17/19 01/17/19 17:54 04:06 04:23 WBC RBC Hgb Hct Plt Count Lymph % (Auto) [place] % (Auto) Lymph # Seg Neutrophils % Seg Neuts % (Manual) Lymphocytes % (Manual) Seg Neutrophils # Seg Neutrophils # Man Lymphocytes # (Manual) APTT POC ABG pH POC ABG pCO2 33.7 L POC ABG pO2 VBG pH Sodium Potassium Chloride Carbon Dioxide BUN Creatinine Glucose POC Glucose 123 H 161 H Lactic Acid Calcium Phosphorus AST ALT CK-MB (CK-2) CK-MB (CK-2) Rel Index Total Protein Albumin Ur Specific [place] 01/17/19 01/18/19 01/19/19 11:20 04:34 11:55 WBC RBC Hgb Hct Plt Count Lymph % (Auto) [place] % (Auto) Lymph # Seg Neutrophils % Seg Neuts % (Manual) Lymphocytes % (Manual) Seg Neutrophils # Seg Neutrophils # Man Lymphocytes # (Manual) APTT POC ABG pH 7.498 H 7.484 H POC ABG pCO2 32.1 L POC ABG pO2 121 H 52 L VBG pH Sodium Potassium Chloride Carbon Dioxide BUN Creatinine Glucose POC Glucose Lactic Acid Calcium Phosphorus AST ALT CK-MB (CK-2) CK-MB (CK-2) Rel Index Total Protein Albumin Ur Specific [place] 01/19/19 01/20/19 01/20/19 23:45 06:30 13:22 WBC RBC Hgb Hct Plt Count Lymph % (Auto) [place] % (Auto) Lymph # Seg Neutrophils % Seg Neuts % (Manual) Lymphocytes % (Manual) Seg Neutrophils # Seg Neutrophils # Man Lymphocytes # (Manual) APTT POC ABG pH POC ABG pCO2 POC ABG pO2 VBG pH Sodium Potassium Chloride Carbon Dioxide BUN Creatinine Glucose POC Glucose 128 H 107 H 149 H Lactic Acid Calcium Phosphorus AST ALT CK-MB (CK-2) CK-MB (CK-2) Rel Index Total Protein Albumin Ur Specific [place] 01/20/19 01/20/19 01/20/19 16:07 18:11 22:53 WBC RBC Hgb Hct Plt Count Lymph % (Auto) [place] % (Auto) Lymph # Seg Neutrophils % Seg Neuts % (Manual) Lymphocytes % (Manual) Seg Neutrophils # Seg Neutrophils # Man Lymphocytes # (Manual) APTT POC ABG pH 7.518 H POC ABG pCO2 POC ABG pO2 210 H VBG pH Sodium Potassium Chloride Carbon Dioxide BUN Creatinine Glucose POC Glucose 139 H 166 H Lactic Acid Calcium Phosphorus AST ALT CK-MB (CK-2) CK-MB (CK-2) Rel Index Total Protein Albumin Ur Specific [place] 01/21/19 01/21/19 01/21/19 04:36 04:47 04:47 WBC RBC 2.89 L Hgb 8.9 L Hct 26.7 L Plt Count Lymph % (Auto) 13.0 L [place] % (Auto) 9.6 H Lymph # 0.7 L Seg Neutrophils % 77.0 H Seg Neuts % (Manual) Lymphocytes % (Manual) Seg Neutrophils # Seg Neutrophils # Man Lymphocytes # (Manual) APTT POC ABG pH POC ABG pCO2 POC ABG pO2 VBG pH Sodium 134 L Potassium Chloride 96.9 L Carbon Dioxide BUN 18 H Creatinine 0.4 L Glucose 138 H POC Glucose 138 H Lactic Acid Calcium 8.0 L Phosphorus AST 171 H ALT 102 H CK-MB (CK-2) CK-MB (CK-2) Rel Index Total Protein 5.6 L Albumin 2.2 L Ur Specific [place] 01/22/19 01/22/19 01/22/19 00:31 05:27 12:16 WBC RBC Hgb Hct Plt Count Lymph % (Auto) [place] % (Auto) Lymph # Seg Neutrophils % Seg Neuts % (Manual) Lymphocytes % (Manual) Seg Neutrophils # Seg Neutrophils # Man Lymphocytes # (Manual) APTT POC ABG pH POC ABG pCO2 POC ABG pO2 VBG pH Sodium Potassium Chloride Carbon Dioxide BUN Creatinine Glucose POC Glucose 113 H 106 H 113 H Lactic Acid Calcium Phosphorus AST ALT CK-MB (CK-2) CK-MB (CK-2) Rel Index Total Protein Albumin Ur Specific [place] 01/23/19 01/23/19 01/23/19 00:35 05:43 11:55 WBC RBC Hgb Hct Plt Count Lymph % (Auto) [place] % (Auto) Lymph # Seg Neutrophils % Seg Neuts % (Manual) Lymphocytes % (Manual) Seg Neutrophils # Seg Neutrophils # Man Lymphocytes # (Manual) APTT POC ABG pH POC ABG pCO2 POC ABG pO2 VBG pH Sodium Potassium Chloride Carbon Dioxide BUN Creatinine Glucose POC Glucose 120 H 139 H 119 H Lactic Acid Calcium Phosphorus AST ALT CK-MB (CK-2) CK-MB (CK-2) Rel Index Total Protein Albumin Ur Specific [place] 01/23/19 01/24/19 01/24/19 18:34 00:40 05:42 WBC RBC Hgb Hct Plt Count Lymph % (Auto) [place] % (Auto) Lymph # Seg Neutrophils % Seg Neuts % (Manual) Lymphocytes % (Manual) Seg Neutrophils # Seg Neutrophils # Man Lymphocytes # (Manual) APTT POC ABG pH POC ABG pCO2 POC ABG pO2 VBG pH Sodium Potassium Chloride Carbon Dioxide BUN Creatinine Glucose POC Glucose 146 H 136 H 119 H Lactic Acid Calcium Phosphorus AST ALT CK-MB (CK-2) CK-MB (CK-2) Rel Index Total Protein Albumin Ur Specific [place] 01/24/19 01/25/19 01/25/19 11:35 00:09 06:30 WBC RBC Hgb Hct Plt Count Lymph % (Auto) [place] % (Auto) Lymph # Seg Neutrophils % Seg Neuts % (Manual) Lymphocytes % (Manual) Seg Neutrophils # Seg Neutrophils # Man Lymphocytes # (Manual) APTT POC ABG pH POC ABG pCO2 POC ABG pO2 VBG pH Sodium Potassium Chloride Carbon Dioxide BUN Creatinine Glucose POC Glucose 117 H 119 H 127 H Lactic Acid Calcium Phosphorus AST ALT CK-MB (CK-2) CK-MB (CK-2) Rel Index Total Protein Albumin Ur Specific [place] 01/25/19 01/26/19 01/26/19 12:10 00:21 04:12 WBC RBC 3.05 L Hgb 9.3 L Hct 27.5 L Plt Count Lymph % (Auto) [place] % (Auto) 10.0 H Lymph # 0.9 L Seg Neutrophils % 73.9 H Seg Neuts % (Manual) Lymphocytes % (Manual) Seg Neutrophils # Seg Neutrophils # Man Lymphocytes # (Manual) APTT POC ABG pH POC ABG pCO2 POC ABG pO2 VBG pH Sodium Potassium Chloride Carbon Dioxide BUN Creatinine Glucose POC Glucose 109 H 125 H Lactic Acid Calcium Phosphorus AST ALT CK-MB (CK-2) CK-MB (CK-2) Rel Index Total Protein Albumin Ur Specific [place] 01/26/19 01/27/19 01/27/19 04:12 04:49 04:49 WBC RBC 3.11 L Hgb 9.5 L Hct 28.0 L Plt Count 477 H Lymph % (Auto) 7.4 L [place] % (Auto) Lymph # 0.8 L Seg Neutrophils % 87.7 H Seg Neuts % (Manual) Lymphocytes % (Manual) Seg Neutrophils # 9.0 H Seg Neutrophils # Man Lymphocytes # (Manual) APTT POC ABG pH POC ABG pCO2 POC ABG pO2 VBG pH Sodium 133 L 131 L Potassium 5.4 H D Chloride Carbon Dioxide 20 L BUN 26 H 28 H Creatinine 0.5 L 0.5 L Glucose POC Glucose Lactic Acid Calcium Phosphorus 4.60 H AST 161 H 82 H ALT 208 H 122 H CK-MB (CK-2) CK-MB (CK-2) Rel Index Total Protein 6.2 L Albumin 2.8 L 2.7 L Ur Specific [place] 01/28/19 01/28/19 01/28/19 04:13 04:13 06:14 WBC 14.9 H RBC 2.94 L Hgb 8.9 L Hct 26.5 L Plt Count 514 H Lymph % (Auto) [place] % (Auto) Lymph # Seg Neutrophils % Seg Neuts % (Manual) 93.0 H Lymphocytes % (Manual) 2.0 L Seg Neutrophils # Seg Neutrophils # Man 13.9 H Lymphocytes # (Manual) 0.3 L APTT POC ABG pH POC ABG pCO2 POC ABG pO2 VBG pH Sodium Potassium Chloride Carbon Dioxide 19 L BUN 42 H Creatinine 0.5 L Glucose 134 H POC Glucose 159 H Lactic Acid Calcium Phosphorus AST 91 H ALT 108 H CK-MB (CK-2) CK-MB (CK-2) Rel Index Total Protein 6.1 L Albumin 2.7 L Ur Specific [place] 01/28/19 01/28/19 01/29/19 12:43 17:49 00:13 WBC RBC Hgb Hct Plt Count Lymph % (Auto) [place] % (Auto) Lymph # Seg Neutrophils % Seg Neuts % (Manual) Lymphocytes % (Manual) Seg Neutrophils # Seg Neutrophils # Man Lymphocytes # (Manual) APTT POC ABG pH POC ABG pCO2 POC ABG pO2 VBG pH Sodium Potassium Chloride Carbon Dioxide BUN Creatinine Glucose POC Glucose 159 H 151 H 148 H Lactic Acid Calcium Phosphorus AST ALT CK-MB (CK-2) CK-MB (CK-2) Rel Index Total Protein Albumin Ur Specific [place] 01/29/19 01/29/19 01/29/19 07:00 07:43 08:47 WBC RBC Hgb Hct Plt Count Lymph % (Auto) [place] % (Auto) Lymph # Seg Neutrophils % Seg Neuts % (Manual) Lymphocytes % (Manual) Seg Neutrophils # Seg Neutrophils # Man Lymphocytes # (Manual) APTT POC ABG pH POC ABG pCO2 POC ABG pO2 VBG pH Sodium Potassium 3.4 L Chloride Carbon Dioxide 21 L BUN 46 H Creatinine 0.3 L Glucose 117 H POC Glucose 130 H 144 H Lactic Acid Calcium Phosphorus AST ALT CK-MB (CK-2) CK-MB (CK-2) Rel Index Total Protein Albumin Ur Specific [place] 01/29/19 01/29/19 01/30/19 11:31 16:21 00:33 WBC RBC Hgb Hct Plt Count Lymph % (Auto) [place] % (Auto) Lymph # Seg Neutrophils % Seg Neuts % (Manual) Lymphocytes % (Manual) Seg Neutrophils # Seg Neutrophils # Man Lymphocytes # (Manual) APTT POC ABG pH POC ABG pCO2 POC ABG pO2 VBG pH Sodium Potassium Chloride Carbon Dioxide BUN Creatinine Glucose POC Glucose 133 H 138 H 159 H Lactic Acid Calcium Phosphorus AST ALT CK-MB (CK-2) CK-MB (CK-2) Rel Index Total Protein Albumin Ur Specific [place] 01/30/19 01/30/19 01/30/19 04:13 06:04 07:34 WBC RBC Hgb Hct Plt Count Lymph % (Auto) [place] % (Auto) Lymph # Seg Neutrophils % Seg Neuts % (Manual) Lymphocytes % (Manual) Seg Neutrophils # Seg Neutrophils # Man Lymphocytes # (Manual) APTT POC ABG pH POC ABG pCO2 POC ABG pO2 VBG pH Sodium Potassium 3.3 L Chloride Carbon Dioxide BUN 34 H Creatinine 0.3 L Glucose 156 H POC Glucose 136 H 130 H Lactic Acid Calcium Phosphorus AST ALT CK-MB (CK-2) CK-MB (CK-2) Rel Index Total Protein Albumin Ur Specific [place] 01/30/19 01/30/19 01/31/19 12:36 18:55 05:16 WBC RBC Hgb Hct Plt Count Lymph % (Auto) [place] % (Auto) Lymph # Seg Neutrophils % Seg Neuts % (Manual) Lymphocytes % (Manual) Seg Neutrophils # Seg Neutrophils # Man Lymphocytes # (Manual) APTT POC ABG pH POC ABG pCO2 POC ABG pO2 VBG pH Sodium Potassium Chloride Carbon Dioxide BUN 29 H Creatinine 0.3 L Glucose 129 H POC Glucose 134 H 114 H Lactic Acid Calcium Phosphorus AST ALT CK-MB (CK-2) CK-MB (CK-2) Rel Index Total Protein Albumin Ur Specific [place] 01/31/19 01/31/19 01/31/19 11:32 16:58 21:06 WBC RBC 2.76 L Hgb 8.6 L Hct 25.0 L Plt Count 478 H Lymph % (Auto) 9.7 L [place] % (Auto) Lymph # 0.6 L Seg Neutrophils % 85.3 H Seg Neuts % (Manual) Lymphocytes % (Manual) Seg Neutrophils # Seg Neutrophils # Man Lymphocytes # (Manual) APTT POC ABG pH POC ABG pCO2 POC ABG pO2 VBG pH Sodium Potassium Chloride Carbon Dioxide BUN Creatinine Glucose POC Glucose 127 H 141 H Lactic Acid Calcium Phosphorus AST ALT CK-MB (CK-2) CK-MB (CK-2) Rel Index Total Protein Albumin Ur Specific [place] 01/31/19 02/01/19 02/01/19 21:06 00:22 04:56 WBC RBC Hgb Hct Plt Count Lymph % (Auto) [place] % (Auto) Lymph # Seg Neutrophils % Seg Neuts % (Manual) Lymphocytes % (Manual) Seg Neutrophils # Seg Neutrophils # Man Lymphocytes # (Manual) APTT POC ABG pH POC ABG pCO2 POC ABG pO2 VBG pH Sodium Potassium Chloride Carbon Dioxide BUN 32 H 27 H Creatinine 0.3 L 0.3 L Glucose 122 H 117 H POC Glucose 133 H Lactic Acid Calcium 8.1 L Phosphorus AST 77 H ALT 85 H CK-MB (CK-2) CK-MB (CK-2) Rel Index Total Protein 5.3 L Albumin 2.2 L Ur Specific [place] 02/01/19 02/01/19 02/01/19 06:35 11:54 18:10 WBC RBC Hgb Hct Plt Count Lymph % (Auto) [place] % (Auto) Lymph # Seg Neutrophils % Seg Neuts % (Manual) Lymphocytes % (Manual) Seg Neutrophils # Seg Neutrophils # Man Lymphocytes # (Manual) APTT POC ABG pH POC ABG pCO2 POC ABG pO2 VBG pH Sodium Potassium Chloride Carbon Dioxide BUN Creatinine Glucose POC Glucose 112 H 139 H 120 H Lactic Acid Calcium Phosphorus AST ALT CK-MB (CK-2) CK-MB (CK-2) Rel Index Total Protein Albumin Ur Specific [place] 02/02/19 02/02/19 02/02/19 00:42 05:01 05:51 WBC RBC Hgb Hct Plt Count Lymph % (Auto) [place] % (Auto) Lymph # Seg Neutrophils % Seg Neuts % (Manual) Lymphocytes % (Manual) Seg Neutrophils # Seg Neutrophils # Man Lymphocytes # (Manual) APTT POC ABG pH POC ABG pCO2 POC ABG pO2 VBG pH Sodium 133 L Potassium Chloride Carbon Dioxide BUN 24 H Creatinine 0.3 L Glucose 130 H POC Glucose 157 H 126 H Lactic Acid Calcium 8.1 L Phosphorus AST ALT CK-MB (CK-2) CK-MB (CK-2) Rel Index Total Protein Albumin Ur Specific [place] 02/02/19 02/02/19 02/03/19 11:57 18:46 04:26 WBC RBC Hgb Hct Plt Count Lymph % (Auto) [place] % (Auto) Lymph # Seg Neutrophils % Seg Neuts % (Manual) Lymphocytes % (Manual) Seg Neutrophils # Seg Neutrophils # Man Lymphocytes # (Manual) APTT POC ABG pH POC ABG pCO2 POC ABG pO2 VBG pH Sodium 135 L Potassium Chloride Carbon Dioxide 21 L BUN 18 H Creatinine 0.3 L Glucose 109 H POC Glucose 130 H 115 H Lactic Acid Calcium 7.8 L Phosphorus AST ALT CK-MB (CK-2) CK-MB (CK-2) Rel Index Total Protein Albumin Ur Specific [place] 02/03/19 02/03/19 02/03/19 06:46 11:29 18:19 WBC RBC Hgb Hct Plt Count Lymph % (Auto) [place] % (Auto) Lymph # Seg Neutrophils % Seg Neuts % (Manual) Lymphocytes % (Manual) Seg Neutrophils # Seg Neutrophils # Man Lymphocytes # (Manual) APTT POC ABG pH POC ABG pCO2 POC ABG pO2 VBG pH Sodium Potassium Chloride Carbon Dioxide BUN Creatinine Glucose POC Glucose 115 H 115 H 124 H Lactic Acid Calcium Phosphorus AST ALT CK-MB (CK-2) CK-MB (CK-2) Rel Index Total Protein Albumin Ur Specific [place] 02/03/19 02/04/19 02/04/19 23:39 06:07 11:35 WBC RBC Hgb Hct Plt Count Lymph % (Auto) [place] % (Auto) Lymph # Seg Neutrophils % Seg Neuts % (Manual) Lymphocytes % (Manual) Seg Neutrophils # Seg Neutrophils # Man Lymphocytes # (Manual) APTT POC ABG pH POC ABG pCO2 POC ABG pO2 VBG pH Sodium Potassium Chloride Carbon Dioxide BUN Creatinine Glucose POC Glucose 128 H 149 H 122 H Lactic Acid Calcium Phosphorus AST ALT CK-MB (CK-2) CK-MB (CK-2) Rel Index Total Protein Albumin Ur Specific [place] 02/04/19 16:48 WBC RBC Hgb Hct Plt Count Lymph % (Auto) [place] % (Auto) Lymph # Seg Neutrophils % Seg Neuts % (Manual) Lymphocytes % (Manual) Seg Neutrophils # Seg Neutrophils # Man Lymphocytes # (Manual) APTT POC ABG pH POC ABG pCO2 POC ABG pO2 VBG pH Sodium Potassium Chloride Carbon Dioxide BUN Creatinine Glucose POC Glucose 118 H Lactic Acid Calcium Phosphorus AST ALT CK-MB (CK-2) CK-MB (CK-2) Rel Index Total Protein Albumin Ur Specific [place] Allied health notes reviewed: nursing
[2019-02-04] MEDS: QUEtiapine 200 MG TAB PO SCH (23:05)
[2019-02-04] MEDS: HALOPERIDOL 5 MG TAB PO SCH (23:14)
[2019-02-05] MEDS: IPRATROPIUM/ALBUTEROL SULFATE 3 ML AMPUL.NEB IH SCH ×3 (00:13→13:23)
[2019-02-05] MEDS: HEPARIN 5,000 UNIT/1 ML VIAL SUB-Q SCH (10:31)
[2019-02-05] MEDS: LORazepam 1 MG TAB PO SCH (10:31)
--- NOTE | 2019-02-05 13:36 | Progress Note ---
Assessment and Plan atient awake. Weak.Patient bruxing her teeth. Patient is on room air . O2 saturation 97%. No acute respiratory distress. Patient afebrile. No leukocytosis. Chest xray reported poor inspiration. Probable left lower lobe infiltrate. - Patient Problems (1) Respiratory failure requiring intubation Current Visit: Yes Status: Acute Plan to address problem: Patient intubated and extubated presently on room air. [id number] running at 97% (2) Cerebral palsy Current Visit: Yes Status: Acute Plan to address problem: Aspiration precautions management as per primary care (3) Constipation Current Visit: Yes Status: Acute Plan to address problem: Management as per primary care team (4) Ileus Current Visit: Yes Status: Acute Plan to address problem: Management as per primary care team Subjective Date of service: 02/05/19 Principal diagnosis: Ac Hypoxemic and Hypercapnic Resp failure; Anemia; Cerebral palsy Interval history: Patient awake. Weak.Patient bruxing her teeth. Patient is on room air . O2 saturation 97%. No acute respiratory distress. Patient afebrile. No leukocytosis. Chest xray reported poor inspiration. Probable left lower lobe infiltrate. Objective Vital Signs - 12hr 02/05/19 02/05/19 02/05/19 07:57 08:05 10:00 Temperature 99.1 F Pulse Rate 112 H 114 H Pulse Rate [ 117 H Bilateral Throughout] Pulse Rate [ 114 H From Monitor] Respiratory 16 16 Rate Respiratory 20 Rate [Bilateral Throughout] Blood Pressure 151/90 O2 Sat by Pulse 96 96 Oximetry Constitutional: no acute distress, alert Eyes: non-icteric ENT: oropharynx moist Neck: supple, no lymphadenopathy, no JVD Effort: normal Ascultation: Bilateral: rales, rhonchi, other (referred upper airway sounds) Percussion: Bilateral: not dull Cardiovascular: regular rate and rhythm, other (S1,S2) Gastrointestinal: normoactive bowel sounds, soft, non-tender, non-distended Integumentary: rash Extremities: no cyanosis, no edema, pulses normal, no ischemia or petechiae Neurologic: non-focal exam (grossly), pupils equal and round, other (+ cognitive defect re: cerebral Palsy) Psychiatric: anxious CBC and BMP: 01/31/19 21:06 02/03/19 04:26 ABG, PT/INR, D-dimer: ABG POC ABG pH 7.518 (7.35-7.45) H 01/20/19 16:07 POC ABG pCO2 37.5 (35-45) 01/20/19 16:07 POC ABG pO2 210 (80-105) H 01/20/19 16:07 POC ABG HCO3 30.4 (22-26 mml/L) 01/20/19 16:07 POC ABG Total CO2 32 (23-27mmol/L) 01/20/19 16:07 POC ABG O2 Sat 100 01/20/19 16:07 PT/INR, D-dimer PT 12.9 Sec. (12.2-14.9) 01/26/19 04:12 INR 0.98 (0.87-1.13) 01/26/19 04:12 D-Dimer 135.00 ng/mlDDU (0-234) 01/13/19 00:27 Abnormal lab findings: Abnormal Labs 01/13/19 01/13/19 01/13/19 00:27 00:27 00:27 WBC RBC 3.36 L Hgb Hct Plt Count Lymph % (Auto) 4.2 L [place] % (Auto) Lymph # 0.3 L Seg Neutrophils % 89.1 H Seg Neuts % (Manual) Lymphocytes % (Manual) Seg Neutrophils # Seg Neutrophils # Man Lymphocytes # (Manual) APTT POC ABG pH POC ABG pCO2 POC ABG pO2 VBG pH 7.178 L* Sodium Potassium Chloride 109.1 H Carbon Dioxide 20 L BUN 29 H Creatinine Glucose 175 H POC Glucose Lactic Acid Calcium 7.8 L Phosphorus AST ALT CK-MB (CK-2) 7.7 H CK-MB (CK-2) Rel Index 7.2 H Total Protein 6.0 L Albumin 3.3 L Ur Specific [place] 01/13/19 01/13/19 01/13/19 00:27 02:14 02:22 WBC RBC Hgb Hct Plt Count Lymph % (Auto) [place] % (Auto) Lymph # Seg Neutrophils % Seg Neuts % (Manual) Lymphocytes % (Manual) Seg Neutrophils # Seg Neutrophils # Man Lymphocytes # (Manual) APTT POC ABG pH 7.276 L POC ABG pCO2 49.4 H POC ABG pO2 156 H VBG pH Sodium Potassium Chloride Carbon Dioxide BUN Creatinine Glucose POC Glucose Lactic Acid 2.90 H* 0.30 L Calcium Phosphorus AST ALT CK-MB (CK-2) CK-MB (CK-2) Rel Index Total Protein Albumin Ur Specific [place] 01/13/19 01/13/19 01/14/19 02:22 02:34 05:13 WBC RBC 2.96 L Hgb 9.3 L Hct 27.4 L Plt Count Lymph % (Auto) [place] % (Auto) 11.9 H Lymph # Seg Neutrophils % Seg Neuts % (Manual) Lymphocytes % (Manual) Seg Neutrophils # Seg Neutrophils # Man Lymphocytes # (Manual) APTT 39.4 H POC ABG pH POC ABG pCO2 POC ABG pO2 VBG pH Sodium Potassium Chloride Carbon Dioxide BUN Creatinine Glucose POC Glucose Lactic Acid Calcium Phosphorus AST ALT CK-MB (CK-2) CK-MB (CK-2) Rel Index Total Protein Albumin Ur Specific [place] 1.051 H 01/14/19 01/14/19 01/15/19 05:13 06:06 04:31 WBC RBC Hgb Hct Plt Count Lymph % (Auto) [place] % (Auto) Lymph # Seg Neutrophils % Seg Neuts % (Manual) Lymphocytes % (Manual) Seg Neutrophils # Seg Neutrophils # Man Lymphocytes # (Manual) APTT POC ABG pH POC ABG pCO2 33.7 L POC ABG pO2 121 H 114 H VBG pH Sodium Potassium Chloride Carbon Dioxide 21 L BUN 22 H Creatinine 0.6 L Glucose 62 L POC Glucose Lactic Acid Calcium 8.0 L Phosphorus AST ALT CK-MB (CK-2) CK-MB (CK-2) Rel Index Total Protein Albumin Ur Specific [place] 01/15/19 01/15/19 01/16/19 08:51 10:07 02:56 WBC RBC Hgb Hct Plt Count Lymph % (Auto) [place] % (Auto) Lymph # Seg Neutrophils % Seg Neuts % (Manual) Lymphocytes % (Manual) Seg Neutrophils # Seg Neutrophils # Man Lymphocytes # (Manual) APTT POC ABG pH POC ABG pCO2 POC ABG pO2 VBG pH Sodium Potassium Chloride Carbon Dioxide BUN Creatinine Glucose POC Glucose < 40 L 158 H 142 H Lactic Acid Calcium Phosphorus AST ALT CK-MB (CK-2) CK-MB (CK-2) Rel Index Total Protein Albumin Ur Specific [place] 01/16/19 01/17/19 01/17/19 17:54 04:06 04:23 WBC RBC Hgb Hct Plt Count Lymph % (Auto) [place] % (Auto) Lymph # Seg Neutrophils % Seg Neuts % (Manual) Lymphocytes % (Manual) Seg Neutrophils # Seg Neutrophils # Man Lymphocytes # (Manual) APTT POC ABG pH POC ABG pCO2 33.7 L POC ABG pO2 VBG pH Sodium Potassium Chloride Carbon Dioxide BUN Creatinine Glucose POC Glucose 123 H 161 H Lactic Acid Calcium Phosphorus AST ALT CK-MB (CK-2) CK-MB (CK-2) Rel Index Total Protein Albumin Ur Specific [place] 01/17/19 01/18/19 01/19/19 11:20 04:34 11:55 WBC RBC Hgb Hct Plt Count Lymph % (Auto) [place] % (Auto) Lymph # Seg Neutrophils % Seg Neuts % (Manual) Lymphocytes % (Manual) Seg Neutrophils # Seg Neutrophils # Man Lymphocytes # (Manual) APTT POC ABG pH 7.498 H 7.484 H POC ABG pCO2 32.1 L POC ABG pO2 121 H 52 L VBG pH Sodium Potassium Chloride Carbon Dioxide BUN Creatinine Glucose POC Glucose Lactic Acid Calcium Phosphorus AST ALT CK-MB (CK-2) CK-MB (CK-2) Rel Index Total Protein Albumin Ur Specific [place] 01/19/19 01/20/19 01/20/19 23:45 06:30 13:22 WBC RBC Hgb Hct Plt Count Lymph % (Auto) [place] % (Auto) Lymph # Seg Neutrophils % Seg Neuts % (Manual) Lymphocytes % (Manual) Seg Neutrophils # Seg Neutrophils # Man Lymphocytes # (Manual) APTT POC ABG pH POC ABG pCO2 POC ABG pO2 VBG pH Sodium Potassium Chloride Carbon Dioxide BUN Creatinine Glucose POC Glucose 128 H 107 H 149 H Lactic Acid Calcium Phosphorus AST ALT CK-MB (CK-2) CK-MB (CK-2) Rel Index Total Protein Albumin Ur Specific [place] 01/20/19 01/20/19 01/20/19 16:07 18:11 22:53 WBC RBC Hgb Hct Plt Count Lymph % (Auto) [place] % (Auto) Lymph # Seg Neutrophils % Seg Neuts % (Manual) Lymphocytes % (Manual) Seg Neutrophils # Seg Neutrophils # Man Lymphocytes # (Manual) APTT POC ABG pH 7.518 H POC ABG pCO2 POC ABG pO2 210 H VBG pH Sodium Potassium Chloride Carbon Dioxide BUN Creatinine Glucose POC Glucose 139 H 166 H Lactic Acid Calcium Phosphorus AST ALT CK-MB (CK-2) CK-MB (CK-2) Rel Index Total Protein Albumin Ur Specific [place] 01/21/19 01/21/19 01/21/19 04:36 04:47 04:47 WBC RBC 2.89 L Hgb 8.9 L Hct 26.7 L Plt Count Lymph % (Auto) 13.0 L [place] % (Auto) 9.6 H Lymph # 0.7 L Seg Neutrophils % 77.0 H Seg Neuts % (Manual) Lymphocytes % (Manual) Seg Neutrophils # Seg Neutrophils # Man Lymphocytes # (Manual) APTT POC ABG pH POC ABG pCO2 POC ABG pO2 VBG pH Sodium 134 L Potassium Chloride 96.9 L Carbon Dioxide BUN 18 H Creatinine 0.4 L Glucose 138 H POC Glucose 138 H Lactic Acid Calcium 8.0 L Phosphorus AST 171 H ALT 102 H CK-MB (CK-2) CK-MB (CK-2) Rel Index Total Protein 5.6 L Albumin 2.2 L Ur Specific [place] 01/22/19 01/22/19 01/22/19 00:31 05:27 12:16 WBC RBC Hgb Hct Plt Count Lymph % (Auto) [place] % (Auto) Lymph # Seg Neutrophils % Seg Neuts % (Manual) Lymphocytes % (Manual) Seg Neutrophils # Seg Neutrophils # Man Lymphocytes # (Manual) APTT POC ABG pH POC ABG pCO2 POC ABG pO2 VBG pH Sodium Potassium Chloride Carbon Dioxide BUN Creatinine Glucose POC Glucose 113 H 106 H 113 H Lactic Acid Calcium Phosphorus AST ALT CK-MB (CK-2) CK-MB (CK-2) Rel Index Total Protein Albumin Ur Specific [place] 01/23/19 01/23/19 01/23/19 00:35 05:43 11:55 WBC RBC Hgb Hct Plt Count Lymph % (Auto) [place] % (Auto) Lymph # Seg Neutrophils % Seg Neuts % (Manual) Lymphocytes % (Manual) Seg Neutrophils # Seg Neutrophils # Man Lymphocytes # (Manual) APTT POC ABG pH POC ABG pCO2 POC ABG pO2 VBG pH Sodium Potassium Chloride Carbon Dioxide BUN Creatinine Glucose POC Glucose 120 H 139 H 119 H Lactic Acid Calcium Phosphorus AST ALT CK-MB (CK-2) CK-MB (CK-2) Rel Index Total Protein Albumin Ur Specific [place] 01/23/19 01/24/19 01/24/19 18:34 00:40 05:42 WBC RBC Hgb Hct Plt Count Lymph % (Auto) [place] % (Auto) Lymph # Seg Neutrophils % Seg Neuts % (Manual) Lymphocytes % (Manual) Seg Neutrophils # Seg Neutrophils # Man Lymphocytes # (Manual) APTT POC ABG pH POC ABG pCO2 POC ABG pO2 VBG pH Sodium Potassium Chloride Carbon Dioxide BUN Creatinine Glucose POC Glucose 146 H 136 H 119 H Lactic Acid Calcium Phosphorus AST ALT CK-MB (CK-2) CK-MB (CK-2) Rel Index Total Protein Albumin Ur Specific [place] 01/24/19 01/25/19 01/25/19 11:35 00:09 06:30 WBC RBC Hgb Hct Plt Count Lymph % (Auto) [place] % (Auto) Lymph # Seg Neutrophils % Seg Neuts % (Manual) Lymphocytes % (Manual) Seg Neutrophils # Seg Neutrophils # Man Lymphocytes # (Manual) APTT POC ABG pH POC ABG pCO2 POC ABG pO2 VBG pH Sodium Potassium Chloride Carbon Dioxide BUN Creatinine Glucose POC Glucose 117 H 119 H 127 H Lactic Acid Calcium Phosphorus AST ALT CK-MB (CK-2) CK-MB (CK-2) Rel Index Total Protein Albumin Ur Specific [place] 01/25/19 01/26/19 01/26/19 12:10 00:21 04:12 WBC RBC 3.05 L Hgb 9.3 L Hct 27.5 L Plt Count Lymph % (Auto) [place] % (Auto) 10.0 H Lymph # 0.9 L Seg Neutrophils % 73.9 H Seg Neuts % (Manual) Lymphocytes % (Manual) Seg Neutrophils # Seg Neutrophils # Man Lymphocytes # (Manual) APTT POC ABG pH POC ABG pCO2 POC ABG pO2 VBG pH Sodium Potassium Chloride Carbon Dioxide BUN Creatinine Glucose POC Glucose 109 H 125 H Lactic Acid Calcium Phosphorus AST ALT CK-MB (CK-2) CK-MB (CK-2) Rel Index Total Protein Albumin Ur Specific [place] 01/26/19 01/27/19 01/27/19 04:12 04:49 04:49 WBC RBC 3.11 L Hgb 9.5 L Hct 28.0 L Plt Count 477 H Lymph % (Auto) 7.4 L [place] % (Auto) Lymph # 0.8 L Seg Neutrophils % 87.7 H Seg Neuts % (Manual) Lymphocytes % (Manual) Seg Neutrophils # 9.0 H Seg Neutrophils # Man Lymphocytes # (Manual) APTT POC ABG pH POC ABG pCO2 POC ABG pO2 VBG pH Sodium 133 L 131 L Potassium 5.4 H D Chloride Carbon Dioxide 20 L BUN 26 H 28 H Creatinine 0.5 L 0.5 L Glucose POC Glucose Lactic Acid Calcium Phosphorus 4.60 H AST 161 H 82 H ALT 208 H 122 H CK-MB (CK-2) CK-MB (CK-2) Rel Index Total Protein 6.2 L Albumin 2.8 L 2.7 L Ur Specific [place] 01/28/19 01/28/19 01/28/19 04:13 04:13 06:14 WBC 14.9 H RBC 2.94 L Hgb 8.9 L Hct 26.5 L Plt Count 514 H Lymph % (Auto) [place] % (Auto) Lymph # Seg Neutrophils % Seg Neuts % (Manual) 93.0 H Lymphocytes % (Manual) 2.0 L Seg Neutrophils # Seg Neutrophils # Man 13.9 H Lymphocytes # (Manual) 0.3 L APTT POC ABG pH POC ABG pCO2 POC ABG pO2 VBG pH Sodium Potassium Chloride Carbon Dioxide 19 L BUN 42 H Creatinine 0.5 L Glucose 134 H POC Glucose 159 H Lactic Acid Calcium Phosphorus AST 91 H ALT 108 H CK-MB (CK-2) CK-MB (CK-2) Rel Index Total Protein 6.1 L Albumin 2.7 L Ur Specific [place] 01/28/19 01/28/19 01/29/19 12:43 17:49 00:13 WBC RBC Hgb Hct Plt Count Lymph % (Auto) [place] % (Auto) Lymph # Seg Neutrophils % Seg Neuts % (Manual) Lymphocytes % (Manual) Seg Neutrophils # Seg Neutrophils # Man Lymphocytes # (Manual) APTT POC ABG pH POC ABG pCO2 POC ABG pO2 VBG pH Sodium Potassium Chloride Carbon Dioxide BUN Creatinine Glucose POC Glucose 159 H 151 H 148 H Lactic Acid Calcium Phosphorus AST ALT CK-MB (CK-2) CK-MB (CK-2) Rel Index Total Protein Albumin Ur Specific [place] 01/29/19 01/29/19 01/29/19 07:00 07:43 08:47 WBC RBC Hgb Hct Plt Count Lymph % (Auto) [place] % (Auto) Lymph # Seg Neutrophils % Seg Neuts % (Manual) Lymphocytes % (Manual) Seg Neutrophils # Seg Neutrophils # Man Lymphocytes # (Manual) APTT POC ABG pH POC ABG pCO2 POC ABG pO2 VBG pH Sodium Potassium 3.4 L Chloride Carbon Dioxide 21 L BUN 46 H Creatinine 0.3 L Glucose 117 H POC Glucose 130 H 144 H Lactic Acid Calcium Phosphorus AST ALT CK-MB (CK-2) CK-MB (CK-2) Rel Index Total Protein Albumin Ur Specific [place] 01/29/19 01/29/19 01/30/19 11:31 16:21 00:33 WBC RBC Hgb Hct Plt Count Lymph % (Auto) [place] % (Auto) Lymph # Seg Neutrophils % Seg Neuts % (Manual) Lymphocytes % (Manual) Seg Neutrophils # Seg Neutrophils # Man Lymphocytes # (Manual) APTT POC ABG pH POC ABG pCO2 POC ABG pO2 VBG pH Sodium Potassium Chloride Carbon Dioxide BUN Creatinine Glucose POC Glucose 133 H 138 H 159 H Lactic Acid Calcium Phosphorus AST ALT CK-MB (CK-2) CK-MB (CK-2) Rel Index Total Protein Albumin Ur Specific [place] 01/30/19 01/30/19 01/30/19 04:13 06:04 07:34 WBC RBC Hgb Hct Plt Count Lymph % (Auto) [place] % (Auto) Lymph # Seg Neutrophils % Seg Neuts % (Manual) Lymphocytes % (Manual) Seg Neutrophils # Seg Neutrophils # Man Lymphocytes # (Manual) APTT POC ABG pH POC ABG pCO2 POC ABG pO2 VBG pH Sodium Potassium 3.3 L Chloride Carbon Dioxide BUN 34 H Creatinine 0.3 L Glucose 156 H POC Glucose 136 H 130 H Lactic Acid Calcium Phosphorus AST ALT CK-MB (CK-2) CK-MB (CK-2) Rel Index Total Protein Albumin Ur Specific [place] 01/30/19 01/30/19 01/31/19 12:36 18:55 05:16 WBC RBC Hgb Hct Plt Count Lymph % (Auto) [place] % (Auto) Lymph # Seg Neutrophils % Seg Neuts % (Manual) Lymphocytes % (Manual) Seg Neutrophils # Seg Neutrophils # Man Lymphocytes # (Manual) APTT POC ABG pH POC ABG pCO2 POC ABG pO2 VBG pH Sodium Potassium Chloride Carbon Dioxide BUN 29 H Creatinine 0.3 L Glucose 129 H POC Glucose 134 H 114 H Lactic Acid Calcium Phosphorus AST ALT CK-MB (CK-2) CK-MB (CK-2) Rel Index Total Protein Albumin Ur Specific [place] 01/31/19 01/31/19 01/31/19 11:32 16:58 21:06 WBC RBC 2.76 L Hgb 8.6 L Hct 25.0 L Plt Count 478 H Lymph % (Auto) 9.7 L [place] % (Auto) Lymph # 0.6 L Seg Neutrophils % 85.3 H Seg Neuts % (Manual) Lymphocytes % (Manual) Seg Neutrophils # Seg Neutrophils # Man Lymphocytes # (Manual) APTT POC ABG pH POC ABG pCO2 POC ABG pO2 VBG pH Sodium Potassium Chloride Carbon Dioxide BUN Creatinine Glucose POC Glucose 127 H 141 H Lactic Acid Calcium Phosphorus AST ALT CK-MB (CK-2) CK-MB (CK-2) Rel Index Total Protein Albumin Ur Specific [place] 01/31/19 02/01/19 02/01/19 21:06 00:22 04:56 WBC RBC Hgb Hct Plt Count Lymph % (Auto) [place] % (Auto) Lymph # Seg Neutrophils % Seg Neuts % (Manual) Lymphocytes % (Manual) Seg Neutrophils # Seg Neutrophils # Man Lymphocytes # (Manual) APTT POC ABG pH POC ABG pCO2 POC ABG pO2 VBG pH Sodium Potassium Chloride Carbon Dioxide BUN 32 H 27 H Creatinine 0.3 L 0.3 L Glucose 122 H 117 H POC Glucose 133 H Lactic Acid Calcium 8.1 L Phosphorus AST 77 H ALT 85 H CK-MB (CK-2) CK-MB (CK-2) Rel Index Total Protein 5.3 L Albumin 2.2 L Ur Specific [place] 02/01/19 02/01/19 02/01/19 06:35 11:54 18:10 WBC RBC Hgb Hct Plt Count Lymph % (Auto) [place] % (Auto) Lymph # Seg Neutrophils % Seg Neuts % (Manual) Lymphocytes % (Manual) Seg Neutrophils # Seg Neutrophils # Man Lymphocytes # (Manual) APTT POC ABG pH POC ABG pCO2 POC ABG pO2 VBG pH Sodium Potassium Chloride Carbon Dioxide BUN Creatinine Glucose POC Glucose 112 H 139 H 120 H Lactic Acid Calcium Phosphorus AST ALT CK-MB (CK-2) CK-MB (CK-2) Rel Index Total Protein Albumin Ur Specific [place] 02/02/19 02/02/19 02/02/19 00:42 05:01 05:51 WBC RBC Hgb Hct Plt Count Lymph % (Auto) [place] % (Auto) Lymph # Seg Neutrophils % Seg Neuts % (Manual) Lymphocytes % (Manual) Seg Neutrophils # Seg Neutrophils # Man Lymphocytes # (Manual) APTT POC ABG pH POC ABG pCO2 POC ABG pO2 VBG pH Sodium 133 L Potassium Chloride Carbon Dioxide BUN 24 H Creatinine 0.3 L Glucose 130 H POC Glucose 157 H 126 H Lactic Acid Calcium 8.1 L Phosphorus AST ALT CK-MB (CK-2) CK-MB (CK-2) Rel Index Total Protein Albumin Ur Specific [place] 02/02/19 02/02/19 02/03/19 11:57 18:46 04:26 WBC RBC Hgb Hct Plt Count Lymph % (Auto) [place] % (Auto) Lymph # Seg Neutrophils % Seg Neuts % (Manual) Lymphocytes % (Manual) Seg Neutrophils # Seg Neutrophils # Man Lymphocytes # (Manual) APTT POC ABG pH POC ABG pCO2 POC ABG pO2 VBG pH Sodium 135 L Potassium Chloride Carbon Dioxide 21 L BUN 18 H Creatinine 0.3 L Glucose 109 H POC Glucose 130 H 115 H Lactic Acid Calcium 7.8 L Phosphorus AST ALT CK-MB (CK-2) CK-MB (CK-2) Rel Index Total Protein Albumin Ur Specific [place] 02/03/19 02/03/19 02/03/19 06:46 11:29 18:19 WBC RBC Hgb Hct Plt Count Lymph % (Auto) [place] % (Auto) Lymph # Seg Neutrophils % Seg Neuts % (Manual) Lymphocytes % (Manual) Seg Neutrophils # Seg Neutrophils # Man Lymphocytes # (Manual) APTT POC ABG pH POC ABG pCO2 POC ABG pO2 VBG pH Sodium Potassium Chloride Carbon Dioxide BUN Creatinine Glucose POC Glucose 115 H 115 H 124 H Lactic Acid Calcium Phosphorus AST ALT CK-MB (CK-2) CK-MB (CK-2) Rel Index Total Protein Albumin Ur Specific [place] 02/03/19 02/04/19 02/04/19 23:39 06:07 11:35 WBC RBC Hgb Hct Plt Count Lymph % (Auto) [place] % (Auto) Lymph # Seg Neutrophils % Seg Neuts % (Manual) Lymphocytes % (Manual) Seg Neutrophils # Seg Neutrophils # Man Lymphocytes # (Manual) APTT POC ABG pH POC ABG pCO2 POC ABG pO2 VBG pH Sodium Potassium Chloride Carbon Dioxide BUN Creatinine Glucose POC Glucose 128 H 149 H 122 H Lactic Acid Calcium Phosphorus AST ALT CK-MB (CK-2) CK-MB (CK-2) Rel Index Total Protein Albumin Ur Specific [place] 02/04/19 02/05/19 02/05/19 16:48 06:04 11:43 WBC RBC Hgb Hct Plt Count Lymph % (Auto) [place] % (Auto) Lymph # Seg Neutrophils % Seg Neuts % (Manual) Lymphocytes % (Manual) Seg Neutrophils # Seg Neutrophils # Man Lymphocytes # (Manual) APTT POC ABG pH POC ABG pCO2 POC ABG pO2 VBG pH Sodium Potassium Chloride Carbon Dioxide BUN Creatinine Glucose POC Glucose 118 H 114 H 123 H Lactic Acid Calcium Phosphorus AST ALT CK-MB (CK-2) CK-MB (CK-2) Rel Index Total Protein Albumin Ur Specific [place] Allied health notes reviewed: nursing
[2019-02-05 13:57] VITALS: BP 114/75
--- NOTE | 2019-02-05 16:34 | Discharge Summary ---
Providers - Providers Date of Admission: 01/13/19 02:34 Date of discharge: 02/05/19 Attending physician: KEKE BRAVO 01/12/19 23:54 Consult to Dietitian/Nutrition [CONS] Routine Physician Instructions: Reason For Exam: Reason for Consult: Evaluate nutritional intake 01/13/19 02:35 Consult to Physician [CONS] Urgent Comment: Consulting Provider: JULES COHEN Physician Instructions: Reason For Exam: severe constipation, ileus, resp failure 01/13/19 05:45 Consult to Physician [CONS] Routine Comment: Consulting Provider: CLAU CLARKE Physician Instructions: Reason For Exam: fecal impaction 01/16/19 13:22 Consult to Dietitian/Nutrition [CONS] Routine Physician Instructions: Reason For Exam: NGT feeding Reason for Consult: Write/Manage Tube Feeding 01/19/19 08:13 Speech Therapy Evaluation and Treat [CONS] Routine Reason For Exam: failed swallowing screen 01/20/19 10:28 Physical Therapy Evaluation and Treat [CONS] Routine Comment: Reason For Exam: deconditioning 01/20/19 10:30 Occupational Therapy Evaluate and Treat [CONS] Routine Comment: Reason For Exam: deconditioning 01/23/19 11:28 Consult to Physician [CONS] Stat Comment: Consulting Provider: CLAU CLARKE Physician Instructions: Reason For Exam: failed modified swallow test/PEG placement 01/26/19 10:44 Consult to Physician [CONS] Routine Comment: Consulting Provider: IRAIDA FRIEDMAN Physician Instructions: Reason For Exam: Foreign Body 01/26/19 16:37 Consult to Dietitian/Nutrition [CONS] Routine Physician Instructions: Reason For Exam: Reason for Consult: Write/Manage TPN/PPN 01/29/19 03:17 Consult to Wound/ET Nurse [CONS] Routine Reason For Exam: wound eval 01/31/19 09:42 Consult to Dietitian/Nutrition [CONS] Routine Physician Instructions: Assess nutrtn needs, initiate, modify, manage TF Reason For Exam: Reason for Consult: Write/Manage Tube Feeding Reason for Consult: Write/Manage Tube Feeding Primary care physician: CLINICAL TRIAL ASSOCIATE Hospitalization Condition: Stable Hospital course: Patient is a 68-year-old woman with a history of cerebral palsy, mental retardation, unspecified mental disorder and chronic constipation who presented to [facility] ED on 01/12/19 with SOB, respiratory distress, constipation and increasing swelling of the abdomen. Patient's sister Angelique Meza is her caregiver/roommate noticed that patient abdomen was more distended than usual. It was discovered thru collateral history from Ms. Meza that patient has a well-established history of Pica-like behavior. Pt had a PEG tube placed 15 years ago but she pulled out. Since then she has been able to eat without any difficulties until recently. Patient went to the bathroom and had a large hard bowel movement followed by an acute episode of severe shortness of breath and respiratory distress. Upon arrival to the ED, patient was on 100% O2 NRB mask with agonal respirations. She was confused and unresponsive; therefore, she was intubated via ETT. Abdomen was noted to be hard and distended. Of note, Patient's only previous abdominal surgical history was the PEG tube placement which is no longer present. CT of the abdomen shows fecal impaction. She was admitted to ICU. She was extubated on 01/18/19. However, the abdominal distension persisted after multiple bowel treatments, the fecal impaction was felt to be resolved. Nonetheless, she failed her swallow study and was subsequently set up for PEG tube placement by GI. Then on 01/26/[address] Clarke found foreign bodies (pieces of plastic) in the stomach. Dr. Clarke felt they may be contributing to her bowel issues. He was unable to remove them due to the large size. Therefore, he requested general surgery consult. Then on 01/27/19, She underwent exploratory laparatomy and plastic glove was found in the cecum. It was removed and Gastro-Jejunostomy tube was place. She was started on PPN and re-feeding via tube feeding has been very gradual. 01/26/2019 EGD with attempted foreign body removal Pre-op diagnosis: Neurogenic Dysphagia Post-op diagnosis: other (Foreign Body Stomach) Findings: 1. Large pieces of plastic in stomach; unable to remove through GE junction despite rat tooth forceps, snare, or Gunn net, 2. Able to traverse pylorus (once plastic pushed to side), 3. Small hiatal hernia, 4. LA Grade A esophagitis Date of procedure: 01/27/19 (dictation: [id number]) Pre-op diagnosis: foreign body ingestion Post-op diagnosis: same Findings: plastic glove found in cecum. Procedure: Ex Lap, Gastro-Jejunostomy tube placement, removal of foreign body from cecum Diagnoses: Acute combined respiratory failure s/p MV > 96 hours; stable on nasal canula Dyphagia and Foreign body removal s/p Ex-lap: General Surgery following SBO/ileus: TPN ,monitor electrolytes Acute metabolic encephalopathy as above Hyperkalemia; monitor bmp closely calcium chloride Transaminitis; Monitor LFTs closely, consult GI if needed Cerebral palsy history of cerebral palsy. Fecal impaction: Resolved, stool softeners as needed. Severe malnutrition, bmi 15.3: Instrumentation Designer following new issue is tachycardia, get ekg and start remote monitoring, re-feeding syndrome, improving DVT prophylaxis On Heparin SQ. Disposition: continue inpatient care, await placement, PPN stopped and tube feeding at goal, ready for discharge today D/W sister Angelique Meza Disposition: [id number]/[place]-03 [facility] Time spent for discharge: 33 minutes Core Measure Documentation - Palliative Care Palliative Care/ Comfort Measures: Not Applicable - Core Measures Any of the following diagnoses?: none - VTE Discharge Requirements Deep Vein Thrombosis/Pulmonary Embolism Present on Admission: No Has pt received <5 days of overlap therapy or INR<2.0: No Anticoagulant overlap therapy prescribed at discharge: No Contraindication No Overlap Therapy order at DC: Not Indicated Exam - Physical Exam Narrative exam: Gen: cachetic, bmi 15.3, nonverbal CVS/Heart: Regular tachycardia, normal S1S2, pulses present bilaterally Chest/Lungs: Symmetrical chest expansion, good air entry bilaterally GI/Abdomen: soft, PEG and binder in place /Bladder: no suprapubic tenderness, no CVA or paraspinal tenderness Extermity/Skin: atrophic limbs MSK: contracted limbs Neuro: CN 2-12 grossly intact, doesn't follow commands Psych: calm but confused - Constitutional Vitals: Temp Pulse Resp BP Pulse Ox 98.2 F 119 H 18 114/75 96 02/05/19 13:45 02/05/19 13:45 02/05/19 13:45 02/05/19 13:45 02/05/19 13:45 Plan Activity: up only with assistance, fall precautions Diet: other (Jevity 1.2 at 50ml/hr (goal rate)) Follow up with: PRIMARY CARE, [Primary Care Provider] - 7 Days
--- NOTE | 2019-02-05 16:34 | Progress Note ---
Assessment and Plan Assessment and plan: Patient is a 68-year-old woman with a history of cerebral palsy, mental retardation, unspecified mental disorder and chronic constipation who presented to [facility] ED on 01/12/19 with SOB, respiratory distress, constipation and increasing swelling of the abdomen. Patient's sister Angelique Meza is her caregiver/roommate noticed that patient abdomen was more distended than usual. It was discovered thru collateral history from Ms. Meza that patient has a well-established history of Pica-like behavior. Pt had a PEG tube placed 15 years ago but she pulled out. Since then she has been able to eat without any difficulties until recently. Patient went to the bathroom and had a large hard bowel movement followed by an acute episode of severe shortness of breath and respiratory distress. Upon arrival to the ED, patient was on 100% O2 NRB mask with agonal respirations. She was confused and unresponsive; therefore, she was intubated via ETT. Abdomen was noted to be hard and distended. Of note, Patient's only previous abdominal surgical history was the PEG tube placement which is no longer present. CT of the abdomen shows fecal impaction. She was admitted to ICU. She was extubated on 01/18/19. However, the abdominal distension persisted after multiple bowel treatments, the fecal impaction was felt to be resolved. Nonetheless, she failed her swallow study and was subsequently set up for PEG tube placement by GI. Then on 01/26/[address] Bruce found foreign bodies (pieces of plastic) in the stomach. Dr. Bruce felt they may be contributing to her bowel issues. He was unable to remove them due to the large size. Therefore, he requested general surgery consult. Then on 01/27/19, She underwent exploratory laparatomy and plastic glove was found in the cecum.. It was removed and Gastro-Jejunostomy tube was place. She was started on PPN and re-feeding via tube feeding has been very gradual. 01/26/2019 EGD with attempted foreign body removal Pre-op diagnosis: Neurogenic Dysphagia Post-op diagnosis: other (Foreign Body Stomach) Findings: 1. Large pieces of plastic in stomach; unable to remove through GE junction despite rat tooth forceps, snare, or Gunn net, 2. Able to traverse pylorus (once plastic pushed to side), 3. Small hiatal hernia, 4. LA Grade A esophagitis Date of procedure: 01/27/19 (dictation: [id number]) Pre-op diagnosis: foreign body ingestion Post-op diagnosis: same Findings: plastic glove found in cecum. Procedure: Ex Lap, Gastro-Jejunostomy tube placement, removal of foreign body from cecum Diagnoses: Acute combined respiratory failure s/p MV > 96 hours; stable on nasal canula Dyphagia and Foreign body removal s/p Ex-lap: General Surgery following SBO/ileus: TPN ,monitor electrolytes Acute metabolic encephalopathy as above Hyperkalemia; monitor bmp closely calcium chloride Transaminitis; Monitor LFTs closely, consult GI if needed Cerebral palsy history of cerebral palsy. Fecal impaction: Resolved, stool softeners as needed. Severe malnutrition, bmi 15.3: Tablet Machine Operator following new issue is tachycardia, get ekg and start remote monitoring, re-feeding syndrome, improving DVT prophylaxis On Heparin SQ. Disposition: continue inpatient care, await placement, PPN stopped and tube feeding at goal, ready for discharge today D/W sister Angelique Meza History Interval history: Patient was seen and examined. Follow-up on current diagnosis. No overnight events reported to me. Not cooperative today. Nonverbal. Imaging, nursing note, chart, labs and old chart reviewed. Hospitalist Physical - Physical exam Narrative exam: Gen: cachetic, bmi 15.3, nonverbal CVS/Heart: Regular tachycardia, normal S1S2, pulses present bilaterally Chest/Lungs: Symmetrical chest expansion, good air entry bilaterally GI/Abdomen: soft, PEG and binder in place /Bladder: no suprapubic tenderness, no CVA or paraspinal tenderness Extermity/Skin: atrophic limbs MSK: contracted limbs Neuro: CN 2-12 grossly intact, doesn't follow commands Psych: calm but confused - Constitutional Vitals: Temp Pulse Resp BP Pulse Ox 98.2 F 119 H 18 114/75 96 02/05/19 13:45 02/05/19 13:45 02/05/19 13:45 02/05/19 13:45 02/05/19 13:45 General appearance: Present: no acute distress. Absent: well-nourished Results - Labs CBC & Chem 7: 01/31/19 21:06 02/03/19 04:26 Labs: Laboratory Last Values WBC 6.0 K/mm3 (4.5-11.0) 01/31/19 21:06 RBC 2.76 M/mm3 (3.65-5.03) L 01/31/19 21:06 Hgb 8.6 gm/dl (10.1-14.3) L 01/31/19 21:06 Hct 25.0 % (30.3-42.9) L 01/31/19 21:06 MCV 91 fl (79-97) 01/31/19 21:06 MCH 31 pg (28-32) 01/31/19 21:06 MCHC 34 % (30-34) 01/31/19 21:06 RDW 13.7 % (13.2-15.2) 01/31/19 21:06 Plt Count 478 K/mm3 (140-440) H 01/31/19 21:06 Lymph % (Auto) 9.7 % (13.4-35.0) L 01/31/19 21:06 [place] % (Auto) 4.4 % (0.0-7.3) 01/31/19 21:06 Eos % (Auto) 0.2 % (0.0-4.3) 01/31/19 21:06 Baso % (Auto) 0.4 % (0.0-1.8) 01/31/19 21:06 Lymph # 0.6 K/mm3 (1.2-5.4) L 01/31/19 21:06 [place] # 0.3 K/mm3 (0.0-0.8) 01/31/19 21:06 Eos # 0.0 K/mm3 (0.0-0.4) 01/31/19 21:06 Baso # 0.0 K/mm3 (0.0-0.1) 01/31/19 21:06 Add Manual Diff Complete 01/28/19 04:13 Total Counted 100 01/28/19 04:13 Seg Neutrophils % 85.3 % (40.0-70.0) H 01/31/19 21:06 Seg Neuts % (Manual) 93.0 % (40.0-70.0) H 01/28/19 04:13 Band Neutrophils % 2.0 % 01/28/19 04:13 Lymphocytes % (Manual) 2.0 % (13.4-35.0) L 01/28/19 04:13 Reactive Lymphs % (Man) 0 % 01/28/19 04:13 Monocytes % (Manual) 3.0 % (0.0-7.3) 01/28/19 04:13 Eosinophils % (Manual) 0 % (0.0-4.3) 01/28/19 04:13 Basophils % (Manual) 0 % (0.0-1.8) 01/28/19 04:13 Metamyelocytes % 0 % 01/28/19 04:13 Myelocytes % 0 % 01/28/19 04:13 Promyelocytes % 0 % 01/28/19 04:13 Blast Cells % 0 % 01/28/19 04:13 Nucleated RBC % Not Reportable 01/28/19 04:13 Seg Neutrophils # 5.1 K/mm3 (1.8-7.7) 01/31/19 21:06 Seg Neutrophils # Man 13.9 K/mm3 (1.8-7.7) H 01/28/19 04:13 Band Neutrophils # 0.3 K/mm3 01/28/19 04:13 Lymphocytes # (Manual) 0.3 K/mm3 (1.2-5.4) L 01/28/19 04:13 Abs React Lymphs (Man) 0.0 K/mm3 01/28/19 04:13 Monocytes # (Manual) 0.4 K/mm3 (0.0-0.8) 01/28/19 04:13 Eosinophils # (Manual) 0.0 K/mm3 (0.0-0.4) 01/28/19 04:13 Basophils # (Manual) 0.0 K/mm3 (0.0-0.1) 01/28/19 04:13 Metamyelocytes # 0.0 K/mm3 01/28/19 04:13 Myelocytes # 0.0 K/mm3 01/28/19 04:13 Promyelocytes # 0.0 K/mm3 01/28/19 04:13 Blast Cells # 0.0 K/mm3 01/28/19 04:13 WBC Morphology Not Reportable 01/28/19 04:13 Hypersegmented Neuts Not Reportable 01/28/19 04:13 Hyposegmented Neuts Not Reportable 01/28/19 04:13 Hypogranular Neuts Not Reportable 01/28/19 04:13 Smudge Cells Not Reportable 01/28/19 04:13 Toxic Granulation Not Reportable 01/28/19 04:13 Toxic Vacuolation Not Reportable 01/28/19 04:13 Dohle Bodies Not Reportable 01/28/19 04:13 Pelger-Huet Anomaly Not Reportable 01/28/19 04:13 Shivani Rods Not Reportable 01/28/19 04:13 Platelet Estimate Consistent w auto 01/28/19 04:13 Clumped Platelets Not Reportable 01/28/19 04:13 Plt Clumps, EDTA Not Reportable 01/28/19 04:13 Large Platelets Not Reportable 01/28/19 04:13 Giant Platelets Not Reportable 01/28/19 04:13 Platelet Satelliting Not Reportable 01/28/19 04:13 Plt Morphology Comment Not Reportable 01/28/19 04:13 RBC Morphology Not Reportable 01/28/19 04:13 Dimorphic RBCs Not Reportable 01/28/19 04:13 Polychromasia Not Reportable 01/28/19 04:13 Hypochromasia Not Reportable 01/28/19 04:13 Poikilocytosis Not Reportable 01/28/19 04:13 Anisocytosis 1+ 01/28/19 04:13 Microcytosis Not Reportable 01/28/19 04:13 Macrocytosis Not Reportable 01/28/19 04:13 Spherocytes Not Reportable 01/28/19 04:13 Pappenheimer Bodies Not Reportable 01/28/19 04:13 Sickle Cells Not Reportable 01/28/19 04:13 Target Cells Not Reportable 01/28/19 04:13 Tear Drop Cells Not Reportable 01/28/19 04:13 Ovalocytes Not Reportable 01/28/19 04:13 Helmet Cells Not Reportable 01/28/19 04:13 [place] Bodies Not Reportable 01/28/19 04:13 [place] Rings Not Reportable 01/28/19 04:13 [place] Cells Not Reportable 01/28/19 04:13 Bite Cells Not Reportable 01/28/19 04:13 Crenated Cell Not Reportable 01/28/19 04:13 Elliptocytes Not Reportable 01/28/19 04:13 Acanthocytes (Spur) Not Reportable 01/28/19 04:13 Rouleaux Not Reportable 01/28/19 04:13 Hemoglobin C Crystals Not Reportable 01/28/19 04:13 Schistocytes Not Reportable 01/28/19 04:13 Malaria parasites Not Reportable 01/28/19 04:13 Sebas Bodies Not Reportable 01/28/19 04:13 Hem Pathologist Commnt No 01/28/19 04:13 PT 12.9 Sec. (12.2-14.9) 01/26/19 04:12 INR 0.98 (0.87-1.13) 01/26/19 04:12 APTT 31.9 Sec. (24.2-36.6) 01/14/19 05:13 D-Dimer 135.00 ng/mlDDU (0-234) 01/13/19 00:27 POC ABG pH 7.518 (7.35-7.45) H 01/20/19 16:07 POC ABG pCO2 37.5 (35-45) 01/20/19 16:07 POC ABG pO2 210 (80-105) H 01/20/19 16:07 POC ABG HCO3 30.4 (22-26 mml/L) 01/20/19 16:07 POC ABG Total CO2 32 (23-27mmol/L) 01/20/19 16:07 POC ABG O2 Sat 100 01/20/19 16:07 POC ABG Base Excess 8 ((-2) - (+3)mmol/L) 01/20/19 16:07 VBG pH 7.178 (7.320-7.420) L* 01/13/19 00:27 FiO2 50 % 01/20/19 16:07 Sodium 135 mmol/L (137-145) L 02/03/19 04:26 Potassium 4.2 mmol/L (3.6-5.0) 02/03/19 04:26 Chloride 100.6 mmol/L (98-107) 02/03/19 04:26 Carbon Dioxide 21 mmol/L (22-30) L 02/03/19 04:26 Anion Gap 18 mmol/L 02/03/19 04:26 BUN 18 mg/dL (7-17) H 02/03/19 04:26 Creatinine 0.3 mg/dL (0.7-1.2) L 02/03/19 04:26 Estimated GFR > 60 ml/min 02/03/19 04:26 BUN/Creatinine Ratio 60 % 02/03/19 04:26 Glucose 109 mg/dL (65-100) H 02/03/19 04:26 POC Glucose 123 (70-105) H 02/05/19 11:43 Lactic Acid 0.30 mmol/L (0.7-2.0) L 01/13/19 02:22 Calcium 7.8 mg/dL (8.4-10.2) L 02/03/19 04:26 Phosphorus 3.10 mg/dL (2.5-4.5) 02/03/19 04:26 Magnesium 1.90 mg/dL (1.7-2.3) 02/03/19 04:26 Total Bilirubin 0.20 mg/dL (0.1-1.2) 01/31/19 21:06 AST 77 units/L (5-40) H 01/31/19 21:06 ALT 85 units/L (7-56) H 01/31/19 21:06 Alkaline Phosphatase 72 units/L (35-129) 01/31/19 21:06 Ammonia 25.0 umol/L (25-60) 01/13/19 00:27 Total Creatine Kinase 106 units/L (30-135) 01/13/19 00:27 CK-MB (CK-2) 7.7 ng/mL (0.0-4.0) H 01/13/19 00:27 CK-MB (CK-2) Rel Index 7.2 (0-4) H 01/13/19 00:27 Troponin T < 0.010 ng/mL (0.00-0.029) 01/13/19 00:27 NT-Pro-B Natriuret Pep 52.36 pg/mL (0-900) 01/13/19 00:27 Total Protein 5.3 g/dL (6.3-8.2) L 01/31/19 21:06 Albumin 2.2 g/dL (3.9-5) L 01/31/19 21:06 Albumin/Globulin Ratio 0.7 % 01/31/19 21:06 Urine Color Yellow (Yellow) 01/13/19 02:34 Urine Turbidity Slightly-cloudy (Clear) 01/13/19 02:34 Urine pH 5.0 (5.0-7.0) 01/13/19 02:34 Ur Specific [place] 1.051 (1.003-1.030) H 01/13/19 02:34 Urine Protein <15 mg/dl mg/dL (Negative) 01/13/19 02:34 Urine Glucose (UA) 50 mg/dL (Negative) 01/13/19 02:34 Urine Ketones Neg mg/dL (Negative) 01/13/19 02:34 Urine Blood Neg (Negative) 01/13/19 02:34 Urine Nitrite Neg (Negative) 01/13/19 02:34 Urine Bilirubin Neg (Negative) 01/13/19 02:34 Urine Urobilinogen < 2.0 mg/dL (<2.0) 01/13/19 02:34 Ur Leukocyte Esterase Neg (Negative) 01/13/19 02:34 Urine WBC (Auto) < 1.0 /HPF (0.0-6.0) 01/13/19 02:34 Urine RBC (Auto) < 1.0 /HPF (0.0-6.0) 01/13/19 02:34 U Epithel Cells (Auto) < 1.0 /HPF (0-13.0) 01/13/19 02:34 Urine Bacteria (Auto) 1+ /HPF (Negative) 01/13/19 02:34 Urine Mucus 1+ /HPF 01/13/19 02:34 Blood Type O POSITIVE 01/27/19 16:00 Antibody Screen Negative 01/27/19 16:00 Active Medications - Current Medications Current Medications: Generic Name Dose Route Start Last Admin Trade Name Freq PRN Reason Stop Dose Admin Acetaminophen 650 mg 01/13/19 04:55 02/01/19 17:[address] 650 mg Q6H PRN Administration Pain MILD(1-3)/Fever >100.5/WOOD Albuterol/Ipratropium 1 ampul 02/02/19 08:00 02/05/19 13:23 Duoneb *Not For Prn Use* IH 1 ampul TIDRT JOAN Administration Lipase/Protease/Amylase 1 each 01/31/19 09:[address] 10,500 Unit FEEDTUBE PRN PRN For Clogged Feeding Tube Bisacodyl 10 mg 01/13/19 04:55 01/16/19 11:[address] 10 mg QDAY PRN Administration constipation unrelieved by MOM Dextrose 25 ml 01/15/19 08:51 01/15/19 09:00 D50w (25gm) Syringe IV 25 ml Q30MIN PRN Administration Hypoglycemia Protocol Haloperidol 5 mg 01/15/19 22:00 02/04/19 23:14 Haldol PO 5 mg QHS JOAN Administration Heparin Sodium (Porcine) 5,000 unit 01/15/19 22:00 02/05/19 10:31 Heparin SUB-Q 5,000 unit Q12HR JOAN Administration Hydralazine HCl 10 mg 01/18/19 18:48 01/18/19 19:36 Apresoline IV 10 mg Q3HR PRN Administration SBP >/=160 Hydrophilic Ointment 1 applic 01/12/19 23:54 Vaseline Lip Therapy TP Q2HR PRN Dry Lips Lorazepam 1 mg 01/20/19 22:00 02/05/19 10:31 Ativan PO 1 mg BID JOAN Administration Multi-Ingred Cream/Lotion/Oil/Oint 1 applic 01/12/19 23:54 Artificial Tears Ophth Oint OU Q4HR PRN Dry Eye(s) Ondansetron HCl 4 mg 01/13/19 04:55 Zofran IV Q8H PRN Nausea And Vomiting Quetiapine Fumarate 400 mg 01/22/19 22:00 02/04/19 23:05 Seroquel PO 400 mg QHS JOAN Administration Simple Syrup 15 ml 01/31/19 09:41 Simple Syrup FEEDTUBE PRN PRN Hypoglycemia Simple Syrup 30 ml 01/31/19 09:41 Simple Syrup FEEDTUBE PRN PRN Hypoglycemia Sodium Bicarbonate 325 mg 01/31/19 09:41 Sodium Bicarbonate FEEDTUBE PRN PRN For Clogged Feeding Tube Sodium Chloride 10 ml 01/13/19 10:00 02/05/19 10:31 Sodium Chloride Flush Syringe 10 Ml IV 10 ml BID JOAN Administration Sodium Chloride 10 ml 01/13/19 04:55 01/26/19 17:15 Sodium Chloride Flush Syringe 10 Ml IV 10 ml PRN PRN Administration LINE FLUSH Nutrition/Malnutrition Assess - Dietary Evaluation Nutrition/Malnutrition Findings: Nutrition Notes Start: 01/13/19 12:10 Freq: Status: Active Protocol: Document 02/03/19 10:13 LP (Rec: 02/03/19 10:19 LP [id number]) Nutrition Notes Initial or Follow up Reassessment Current Diagnosis Respiratory Failure Other Pertinent Diagnosis Cerebral palsy, Seizure, fecal impaction, dehydration Current Diet Jevity 1.2 at 50ml/hr Labs/Tests Na 135 Pertinent Medications Reviewed Height 5 ft 2 in Weight 38.1 kg [place] Body Weight (kg) 50.00 BMI 15.3 Subjective/Other Information PPN not ordered yesterday. Pt tolerating TF at 50ml/hr (goal rate). Percent of energy/protein needs met: 90%/100% Burn Absent Trauma Absent GI Symptoms None Current % PO Negligible Minimum of two criteria Yes Interpretation of Weight Loss (non- 7.5% in 3 months severe) Body Fat Depletion Moderate depletion (severe) Muscle Mass Moderate Depletion (severe) #2 Nutrition Diagnosis Malnutrition Diagnosis Progress(for reassessment Continues documentation) #1 Nutrition Diagnosis Inadequate oral intake Diagnosis Progress(for reassessment Continues documentation) Is patient on ventilator? No Is Patient Ambulatory and/or Out of Bed No REE-([facility]-confined to bed) 1043.172 Kcal/Kg value to use for calculation 42 Approximate Energy Requirements Using 1600 kcal/Kg Calculation Used for Recommendations Kcal/kg Additional Notes PRO: 46-57g/day (1.2-1.5g/kg) Fluid: 1 ml/kcal Nutrition Intervention Change Diet Order: TF Nutrition Support: Jevity 1.2 at 50ml/hr. Water flush 120ml q4hr. Kcal 1,440 Protein (gm) 66 Fluid (mL) 968 Goal #1 Meet at least 80% of energy and protein needs via TF Anticipated Discharge Needs: TF Follow-Up By: 02/06/19 Additional Comments Follow for stable TF
== END 2019-02-05 17:30 | DRG 981 ==
LOC: ED 23:29 → CC1 01-13 02:34 → 2B-ACE 01-22 13:12
PROVIDERS: ADMIT Internal Medicine Geriatric Medicine; ATTEND Internal Medicine
PROC: 5A1955Z Respiratory Ventilation, Greater than 96 Consecutive Hours (ICD-10-PCS; principal; 2019-01-13)
PROC: 0BH18EZ Insertion of Endotracheal Airway into Trachea, Via Natural or Artificial Opening Endoscopic (ICD-10-PCS; 2019-01-13)
PROC: 4A033R1 Measurement of Arterial Saturation, Peripheral, Percutaneous Approach (ICD-10-PCS; 2019-01-13)
PROC: 5A09357 Assistance with Respiratory Ventilation, Less than 24 Consecutive Hours, Continuous Positive Airway Pressure (ICD-10-PCS; 2019-01-18)
PROC: 5A09357 Assistance with Respiratory Ventilation, Less than 24 Consecutive Hours, Continuous Positive Airway Pressure (ICD-10-PCS; 2019-01-19)
PROC: 5A09357 Assistance with Respiratory Ventilation, Less than 24 Consecutive Hours, Continuous Positive Airway Pressure (ICD-10-PCS; 2019-01-20)
PROC: 5A09357 Assistance with Respiratory Ventilation, Less than 24 Consecutive Hours, Continuous Positive Airway Pressure (ICD-10-PCS; 2019-01-21)
PROC: 5A09357 Assistance with Respiratory Ventilation, Less than 24 Consecutive Hours, Continuous Positive Airway Pressure (ICD-10-PCS; 2019-01-22)
PROC: 5A09357 Assistance with Respiratory Ventilation, Less than 24 Consecutive Hours, Continuous Positive Airway Pressure (ICD-10-PCS; 2019-01-23)
PROC: 5A09357 Assistance with Respiratory Ventilation, Less than 24 Consecutive Hours, Continuous Positive Airway Pressure (ICD-10-PCS; 2019-01-24)
PROC: 0DC68ZZ Extirpation of Matter from Stomach, Via Natural or Artificial Opening Endoscopic (ICD-10-PCS; 2019-01-26)
PROC: 0DCH0ZZ Extirpation of Matter from Cecum, Open Approach (ICD-10-PCS; 2019-01-27)
PROC: 0DHA3UZ Insertion of Feeding Device into Jejunum, Percutaneous Approach (ICD-10-PCS; 2019-01-27)
DX: J96.01 Acute respiratory failure with hypoxia (principal); G93.41 Metabolic encephalopathy; E43 Unspecified severe protein-calorie malnutrition; K56.7 Ileus, unspecified; K56.609 Unspecified intestinal obstruction, unspecified as to partial versus complete obstruction; D62 Acute posthemorrhagic anemia; Z68.1 Body mass index [BMI] 19.9 or less, adult; T18.9XXA Foreign body of alimentary tract, part unspecified, initial encounter; J96.02 Acute respiratory failure with hypercapnia; K56.41 Fecal impaction; K44.9 Diaphragmatic hernia without obstruction or gangrene; R13.19 Other dysphagia; G80.9 Cerebral palsy, unspecified; E86.0 Dehydration; E87.5 Hyperkalemia; K20.8 Other esophagitis; R74.0 Nonspecific elevation of levels of transaminase and lactic acid dehydrogenase [LDH]; R00.0 Tachycardia, unspecified; Z79.899 Other long term (current) drug therapy; Z93.1 Gastrostomy status
CPT/HCPCS: 31500; 36415; 36600; 70450; 71045; 71275; 74018; 74176; 74177; 74230; 80048; 80053; 81001; 82140; 82550; 82553; 82803; 82805; 82962; 83735; 83880; 84100; 84484; 85007; 85025; 85379; 85610; 85730; 86850; 86900; 86901; 87070; 87205; 88302; 93005; 93010; 94002; 94003; 94640; 94660; 94760; G0378; J0330; J0360; J0690; J1100; J1644; J1885; J2060; J2250; J2370; J2405; J2704; J2710; J3010; J7030; J7042; Q9967

== ENCOUNTER 2019-02-19 12:28 | Observation (INO) | payer MEDICARE ==
--- NOTE | 2019-02-19 15:00 | Emergency Department Report ---
ED General Adult HPI - General Chief complaint: Tube Replacement Stated complaint: G TUBE Time Seen by Provider: 02/19/19 14:17 Source: EMS Mode of arrival: Stretcher Limitations: Physical Limitation - History of Present Illness Initial comments: 68-year-old female with history of cerebral palsy, sent from [facility] for a clogged G-tube. Note states they were unable to unclog at prison. -: This afternoon Location: abdomen Severity scale (0 -10): 0 Consistency: constant Improves with: none Worsens with: none Associated Symptoms: denies other symptoms - Related Data Previous Rx's Medication Instructions Recorded Last Taken Type Acetaminophen [Acetaminophen 2 tab [place] Q6H PRN #15 supp.rect 02/05/19 Unknown Rx SUPPOS] Ipratropium/Albuterol Sulfate 1 ampul IH TIDRT #30 ampul.neb 02/05/19 Unknown Rx [DUONEB *Not for PRN Use*] LORazepam [Ativan] 1 mg PO BID #30 tablet 02/05/19 Unknown Rx Lipase/Protease/Amylase [Pancreaze 1 each FEEDTUBE PRN PRN #30 capsule 02/05/19 Unknown Rx 10,500 Unit] QUEtiapine [SEROquel] 400 mg PO QHS #30 tablet 02/05/19 Unknown Rx Simple Syrup 15 ml FEEDTUBE PRN PRN #30 02/05/19 Unknown Rx oral.liqd Simple Syrup 30 ml FEEDTUBE PRN PRN #30 02/05/19 Unknown Rx oral.liqd Sodium Bicarbonate 325 mg FEEDTUBE PRN PRN #30 tablet 02/05/19 Unknown Rx haloperidoL [Haldol] 5 mg PO QHS #30 tablet 02/05/19 Unknown Rx Allergies Allergy/AdvReac Type Severity Reaction Status Date / Time No Known Allergies Allergy Unverified 12/07/13 17:18 ED Review of Systems ROS: Stated complaint: G TUBE Other details as noted in HPI Comment: Unobtainable due to pts medical conditions ED Past Medical Hx - Past Medical History Previous Medical History?: Yes Hx Hypertension: No Hx Heart Attack/AMI: No Hx Liver Disease: No Hx Renal Disease: No Hx Sickle Cell Disease: No Hx Seizures: Yes (childhood) Hx Psychiatric Treatment: Yes (schizophrenia) Hx Asthma: No Hx COPD: No Additional medical history: Chronic Constipation. cerbral palsy - Surgical History Past Surgical History?: Yes Hx Pacemaker: No Hx Internal Defibrillator: No Additional Surgical History: PEG tube placement in the past - Social History Smoking Status: Never Smoker - Medications Home Medications: Home Medications Medication Instructions Recorded Confirmed Last Taken Type Acetaminophen [Acetaminophen 2 tab [place] Q6H PRN #15 supp.rect 02/05/19 Unknown Rx SUPPOS] Ipratropium/Albuterol Sulfate 1 ampul IH TIDRT #30 ampul.neb 02/05/19 Unknown Rx [DUONEB *Not for PRN Use*] LORazepam [Ativan] 1 mg PO BID #30 tablet 02/05/19 Unknown Rx Lipase/Protease/Amylase [Pancreaze 1 each FEEDTUBE PRN PRN #30 capsule 02/05/19 Unknown Rx 10,500 Unit] QUEtiapine [SEROquel] 400 mg PO QHS #30 tablet 02/05/19 Unknown Rx Simple Syrup 15 ml FEEDTUBE PRN PRN #30 02/05/19 Unknown Rx oral.liqd Simple Syrup 30 ml FEEDTUBE PRN PRN #30 02/05/19 Unknown Rx oral.liqd Sodium Bicarbonate 325 mg FEEDTUBE PRN PRN #30 tablet 02/05/19 Unknown Rx haloperidoL [Haldol] 5 mg PO QHS #30 tablet 02/05/19 Unknown Rx ED Physical Exam - General Limitations: Physical Limitation General appearance: alert, in no apparent distress - Head Head exam: Present: atraumatic, normocephalic - Eye Eye exam: Present: normal appearance - ENT ENT exam: Present: mucous membranes moist - Neck Neck exam: Present: normal inspection - Respiratory Respiratory exam: Present: normal lung sounds bilaterally. Absent: respiratory distress - Cardiovascular Cardiovascular Exam: Present: regular rate, normal rhythm - GI/Abdominal GI/Abdominal exam: Present: soft, other (G-tube in place). Absent: distended - Extremities Exam Extremities exam: Present: normal inspection - Neurological Exam Neurological exam: Present: alert, other (at baseline per family; pt is nonverbal) - Psychiatric Psychiatric exam: Present: normal affect, normal mood - Skin Skin exam: Present: warm, dry, intact, normal color ED Course Vital Signs 02/19/19 02/19/19 02/19/19 13:09 15:36 15:47 Temperature 98.1 F Pulse Rate 62 Respiratory 20 Rate Blood Pressure 148/82 Blood Pressure 139/88 [Left] O2 Sat by Pulse 100 94 Oximetry 02/19/19 02/19/19 02/19/19 16:16 16:30 16:46 Temperature Pulse Rate Respiratory Rate Blood Pressure 148/82 148/82 147/72 Blood Pressure [Left] O2 Sat by Pulse 93 100 100 Oximetry 02/19/19 02/19/19 02/19/19 17:00 17:16 17:30 Temperature Pulse Rate Respiratory Rate Blood Pressure 147/72 127/85 134/92 Blood Pressure [Left] O2 Sat by Pulse 99 100 99 Oximetry 02/19/19 02/19/19 02/19/19 17:46 18:00 18:16 Temperature Pulse Rate Respiratory Rate Blood Pressure 134/92 122/74 122/74 Blood Pressure [Left] O2 Sat by Pulse 99 100 98 Oximetry 02/19/19 02/19/19 19:36 19:40 Temperature 98.2 F Pulse Rate 81 Respiratory 16 Rate Blood Pressure 117/81 Blood Pressure 101/83 [Left] O2 Sat by Pulse 98 100 Oximetry - Consultations Consultation #1: 02/19/19 17:31 Spoke w/ Dr Bruce. States last time, G-tube placed by surgery b/c she had swallowed a glove and had resulting bowel obstruction. Suggests obtaining CT and speaking w/ gen surgery since it was placed by them. Consultation #2: 02/19/19 19:58 Pt had J-G tube placed by Dr Feliciano 01/27/19. Spoke w/ Dr Gibbons, recommends admit to hospitalist. Pt can possibly have it replaced by IR tomorrow. ED Medical Decision Making - Lab Data Result diagrams: 02/19/19 17:46 02/19/19 17:46 - Radiology Data Radiology results: report reviewed, image reviewed - Medical Decision Making 68-year-old female with gastrojejunostomy tube placed less than a month ago. Patient sent from prison due to tube being clogged. Unable to flush or unclog at prison or here in ED. Spoke with GI, who recommended a CT abdo men and pelvis. It does not show a bowel obstruction, however it does show an ileus with tube in correct place. I spoke with Dr. Gibbons, general surgeon, states admit hospitalist, will attempt tube replacement via IR tomorrow. - Differential Diagnosis feeding tube malfunction Critical care attestation.: If time is entered above; I have spent that time in minutes in the direct care of this critically ill patient, excluding procedure time. ED Disposition Clinical Impression: Clogged feeding tube Disposition: OP ADMIT IP TO THIS HOSP Is pt being admited?: Yes Condition: Stable Referrals: SULIAMAN INIGUEZ MD [Primary Care Provider] - 3-5 Days Time of Disposition: 20:00
[2019-02-19 18:08] LABS: Basophils % (Auto) 0.9 % (0.0-1.8); Hematocrit 30.8 % (30.3-42.9); Hemoglobin 10.1 gm/dl (10.1-14.3); Lymphocytes # (Auto) 1.6 K/mm3 (1.2-5.4); Lymphocytes % (Auto) 42.2 % (13.4-35.0); Mean Corpuscular HGB Conc 33 % (30-34); Mean Corpuscular Volume 89 fl (79-97); Monocytes # (Auto) 0.3 K/mm3 (0.0-0.8); Platelet Count 321 K/mm3 (140-440); Red Blood Count 3.48 M/mm3 (3.65-5.03)
[2019-02-19 18:23] LABS: BUN/Creatinine Ratio 103; Blood Urea Nitrogen 31 mg/dL (7-17); Calcium 8.8 mg/dL (8.4-10.2); Hemolysis Index 2
--- NOTE | 2019-02-19 19:13 | Cat Scan Report ---
CT abdomen pelvis wo con INDICATION: r/o obstruction; PEG placement. TECHNIQUE: All CT scans at this location are performed using the following dose modulation technique: Automated exposure control. Helical slices were obtained through the abdomen and pelvis. No contrast is adminis tered. COMPARISON: CT scan dated 01/26/2019 FINDINGS: Abdomen: There is improved aeration in the lung bases when compared to the prior exam. There is some persistent opacity in the right base likely representing atelectasis. There has been interval placeme nt of a gastrojejunostomy tube. No acute abnormality is seen in the liver or spleen. Lack of contrast and fat limits this study limitations of tissue definition. No acute renal abnormalities identified. Bowel is distended. There is moderate amount of stool in the colon. Gaseous distention of small carlos eduardo l and colon appear similar to the prior study. Pelvis: Rectal tube is been removed in the interval. Urinary bladder is grossly unremarkable. No infl ammatory changes identified. On review of bone windows, no acute osseous abnormalities are seen. IMPRESSION: 1. There has been interval placement of a gastrojejunostomy tube. No free air is seen. There is gaseo us distention of the bowel which appears similar to the prior study. The appearance is most consisten t with adynamic ileus. There is a moderate amount of stool in colon. Signer Name: Terry Bueno MD Signed: 02/19/2019 7:08 PM Workstation Name: [id number]
[2019-02-19] MEDS ORDERED: SODIUM CHLORIDE 0.9% 1000 ML 1,000 ML IV SCH (21:45)
[2019-02-19] MEDS ORDERED: ACETAMINOPHEN 325 MG TAB PO PRN (21:45)
[2019-02-19] MEDS ORDERED: MORPHINE 2 MG/1 ML INJ IV PRN (21:45)
[2019-02-19] MEDS ORDERED: ONDANSETRON 4 MG/2 ML INJ IV PRN (21:45)
--- NOTE | 2019-02-19 22:15 | History and Physical Report ---
History of Present Illness Date of examination: 02/19/19 Date of admission: 02/19/19 21:33 Chief complaint: Malfunctioning JG tube History of present illness: 68-year-old female with known history of cerebral palsy brought into the emergency room today because of a malfunctioning JG tube. Patient is nonverbal most of the history was gotten from sister who was by the bedside. JG tube is said to have been clogged up and general surgeon on-call has been consulted by the ER physician. Patient will be scheduled for evaluation in the a.m. He has been no history of diarrhea, no nausea vomiting and no fever. Patient is said to have been sent from a intermediate where the JG tube could not be unclogged. Past History Past Medical History: other (Cerebral palsy, history of schizophrenia and chronic constipation) Past Surgical History: Other (JG tube placement) Social history: no significant social history Family history: no significant family history Medications and Allergies Allergies Allergy/AdvReac Type Severity Reaction Status Date / Time No Known Allergies Allergy Unverified 12/07/13 17:18 Home Medications Medication Instructions Recorded Confirmed Last Taken Type Acetaminophen [Acetaminophen 2 tab [place] Q6H PRN #15 supp.rect 02/05/19 Unknown Rx SUPPOS] Ipratropium/Albuterol Sulfate 1 ampul IH TIDRT #30 ampul.neb 02/05/19 Unknown Rx [DUONEB *Not for PRN Use*] LORazepam [Ativan] 1 mg PO BID #30 tablet 02/05/19 Unknown Rx Lipase/Protease/Amylase [Pancreaze 1 each FEEDTUBE PRN PRN #30 capsule 02/05/19 Unknown Rx 10,500 Unit] QUEtiapine [SEROquel] 400 mg PO QHS #30 tablet 02/05/19 Unknown Rx Simple Syrup 15 ml FEEDTUBE PRN PRN #30 02/05/19 Unknown Rx oral.liqd Simple Syrup 30 ml FEEDTUBE PRN PRN #30 02/05/19 Unknown Rx oral.liqd Sodium Bicarbonate 325 mg FEEDTUBE PRN PRN #30 tablet 02/05/19 Unknown Rx haloperidoL [Haldol] 5 mg PO QHS #30 tablet 02/05/19 Unknown Rx Active Meds: Active Medications Acetaminophen (Tylenol) 650 mg PO Q4H PRN PRN Reason: Pain MILD(1-3)/Fever >100.5/WOOD Sodium Chloride (Nacl 0.9% 1000 Ml) 1,000 mls @ 75 mls/hr IV DIRECT [facility] Last Admin: 02/19/19 22:10 Dose: 75 mls/hr Documented by: Morphine Sulfate (Morphine) 2 mg IV Q4H PRN PRN Reason: Pain, Moderate (4-6) Ondansetron HCl (Zofran) 4 mg IV Q8H PRN PRN Reason: Nausea And Vomiting Sodium Chloride (Sodium Chloride Flush Syringe 10 Ml) 10 ml IV BID [facility] Last Admin: 02/19/19 22:08 Dose: 10 ml Documented by: Sodium Chloride (Sodium Chloride Flush Syringe 10 Ml) 10 ml IV PRN PRN PRN Reason: LINE FLUSH Review of Systems ROS unobtainable: due to mental status Exam - Constitutional Vitals: Temp Pulse Resp BP Pulse Ox 98.2 F 81 16 114/79 100 02/19/19 19:40 02/19/19 19:40 02/19/19 19:40 02/19/19 22:00 02/19/19 22:00 General appearance: Present: no acute distress, cachectic - EENT Eyes: Present: PERRL, EOM intact ENT: hearing intact, clear oral mucosa, poor dentition - Neck Neck: Present: supple, normal ROM - Respiratory Respiratory effort: normal Respiratory: bilateral: CTA - Cardiovascular Rhythm: regular Heart Sounds: Present: S1 & S2 - Extremities Extremities: no ischemia, pulses intact, No edema, abnormal (Upper and lower extremities slightly contracted) Peripheral Pulses: within normal limits - Abdominal General gastrointestinal: Present: soft, non-tender, non-distended - Integumentary Integumentary: Present: clear (Dressing over decubitus on the sacrum), warm, dry - Musculoskeletal Musculoskeletal: strength equal bilaterally - Psychiatric Psychiatric: appropriate mood/affect, cooperative - Neurologic Neurologic: CNII-XII intact, other (Patient has cerebral palsy and slightly co ntracted in the upper and lower extremities) Results - Labs CBC & Chem 7: 02/19/19 17:46 02/19/19 17:46 Labs: Abnormal lab results 02/19/19 02/19/19 Range/Units 17:46 17:46 WBC 3.7 L (4.5-11.0) K/mm3 RBC 3.48 L (3.65-5.03) M/mm3 Lymph % (Auto) 42.2 H (13.4-35.0) % [place] % (Auto) 9.0 H (0.0-7.3) % BUN 31 H (7-17) mg/dL Creatinine 0.3 L (0.7-1.2) mg/dL Assessment and Plan - Patient Problems (1) Clogged feeding tube Current Visit: Yes Status: Acute Plan to address problem: Patient to be evaluated by general surgery and possibly interventional radiology in the a.m. (2) Cerebral palsy Current Visit: No Status: Acute Plan to address problem: Patient is at baseline. She is nonverbal. (3) DVT prophylaxis Current Visit: No Status: Acute Plan to address problem: We will place on sequential compression device. (4) Full code status Current Visit: No Status: Acute
[2019-02-19] MEDS ORDERED: SODIUM CHLORIDE 0.9% 1000 ML 1,000 ML ONE (22:16)
[2019-02-20 05:27] LABS: Basophils % (Auto) 0.8 % (0.0-1.8); Eosinophils % (Auto) 1.2 % (0.0-4.3); Hematocrit 28.5 % (30.3-42.9); Hemoglobin 9.4 gm/dl (10.1-14.3); Lymphocytes # (Auto) 1.6 K/mm3 (1.2-5.4); Mean Corpuscular HGB Conc 33 % (30-34); Mean Corpuscular Volume 88 fl (79-97); Monocytes # (Auto) 0.4 K/mm3 (0.0-0.8); Platelet Count 314 K/mm3 (140-440); Red Blood Count 3.25 M/mm3 (3.65-5.03); Red Cell Distribution Width 13.8 % (13.2-15.2)
[2019-02-20 05:31] LABS: Partial Thromboplastin Time 27.3 Sec. (24.2-36.6)
[2019-02-20 05:46] LABS: BUN/Creatinine Ratio 73; Blood Urea Nitrogen 29 mg/dL (7-17); Calcium 8.6 mg/dL (8.4-10.2); Hemolysis Index 5
--- NOTE | 2019-02-20 07:45 | Event Note ---
Date: 02/20/19 consult placed for malfunctioning G-J tube to GI; tube was placed by surgery 01/27/19. Surgery has already been consulted for management of the device. Therefore GI input does not appear to be required at this juncture. Please feel free to call me back for any questions or if I can be of any assistance
--- NOTE | 2019-02-20 09:39 | Event Note ---
Date: 02/20/19 Patient is well known to me as I recently performed an exploratory laparotomy to remove a foreign body and place a GJ feeding tube. We are being asked to see the patient due to a clogged gastric port. I was able to flush the port with [employer]. The nurse confirmed that the port has been unclogged. The tube is functioning normally. The jejunal limb also functions normally. I have communicated with Dr. Alvarez that patient may be discharged back to the group home if there are no other medical issues. Of note, the dilated bowel on CT is a chronic issue for her. Please call with any questions.
--- NOTE | 2019-02-20 11:08 | Discharge Summary ---
Providers - Providers Date of Admission: 02/19/19 21:33 Date of discharge: 02/20/19 Attending physician: GREGORIO CHEN 02/19/19 17:36 Consult to Physician [CONS] Stat Comment: Dr. Martinez spoke with Dr. Clarke @ [id number] Consulting Provider: CLAU CLARKE Physician Instructions: Reason For Exam: g-tube malfunct 02/19/19 19:58 Consult to Physician [CONS] Stat Comment: Dr. Martinez spoke with Dr. Pastrana @ [id number] Consulting Provider: LEO PASTRANA Physician Instructions: Reason For Exam: feeding tube 02/19/19 21:49 Consult to Dietitian/Nutrition [CONS] Routine Physician Instructions: Reason For Exam: Reason for Consult: Write/Manage Tube Feeding 02/20/19 10:03 Consult to Wound/ET Nurse [CONS] Routine Reason For Exam: wound eval [facility] Reason for admission: Malfunctioning JG tube Condition: Stable Hospital course: 68-year-old female with known history of cerebral palsy brought into the emergency room because of a malfunctioning GJ tube. Patient is nonverbal most of the history was gotten from sister who was by the bedside and ER record. GJ tube is said to have been clogged up and general surgeon on-call, Dr. Feliciano, was consulted by the ER physician. General surgery is familiar with the patient and recently performed an exploratory laparotomy to remove a foreign body and place a GJ feeding tube. Dr. Feliciano was able to flush the port with [employer]. The nurse confirmed that the port was unclogged. The tube is functioning normally. The jejunal limb also functions normally. Therefore, patient is felt to have received maximal hospital benefit and will be discharged. Dedicated discharge time 32 minutes. Disposition: DC/TX-03 [facility] Time spent for discharge: 32 - Discharge Diagnoses (1) Clogged feeding tube Status: Acute (2) Cerebral palsy Status: Acute Core Measure Documentation - Palliative Care Palliative Care/ Comfort Measures: Not Applicable - Core Measures Any of the following diagnoses?: none Exam - Constitutional Vitals: Temp Pulse Resp BP Pulse Ox 97.9 F 89 18 106/78 98 02/20/19 08:02 02/20/19 08:02 02/20/19 08:02 02/20/19 08:02 02/20/19 08:02 General appearance: Present: no acute distress, well-nourished - EENT Eyes: Present: PERRL ENT: hearing intact, clear oral mucosa - Neck Neck: Present: supple, normal ROM - Respiratory Respiratory effort: normal Respiratory: bilateral: CTA - Cardiovascular Heart Sounds: Present: S1 & S2. Absent: rub, click - Extremities Extremities: pulses symmetrical, No edema Peripheral Pulses: within normal limits - Abdominal General gastrointestinal: Present: soft, non-tender, non-distended, normal bowel sounds Female genitourinary: Present: normal - Integumentary Integumentary: Present: clear, warm, dry - Musculoskeletal Musculoskeletal: gait normal, strength equal bilaterally - Psychiatric Psychiatric: appropriate mood/affect, intact judgment & insight - Neurologic Neurologic: CNII-XII intact, moves all extremities Plan Activity: advance as tolerated Weight Bearing Status: Weight Bear as Tolerated Diet: per dietitian instruction Follow up with: SULAIMAN INIGUEZ MD [Primary Care Provider] - 3-5 Days IRAIDA FELICIANO MD [Staff Physician] - 7 Days
[2019-02-20] MEDS ORDERED: SODIUM BICARBONATE 325 MG TAB FEEDTUBE PRN (13:12)
[2019-02-20] MEDS ORDERED: SIMPLE SYRUP 15 ML FEEDTUBE PRN ×2 (13:12)
[2019-02-20] MEDS ORDERED: LIPASE 10,500/PROTEASE 25,000/AMYLASE 43,750 (UNITS) DR CAP FEEDTUBE PRN (13:12)
[2019-02-20 13:18] VITALS: BP 127/79
== END 2019-02-20 15:30 ==
LOC: ED 12:28 → 2B-ACE 21:33
PROVIDERS: ADMIT Internal Medicine Geriatric Medicine; ATTEND Hospitalist
DX: T85.598A Other mechanical complication of other gastrointestinal prosthetic devices, implants and grafts, initial encounter (principal); K94.23 Gastrostomy malfunction; G80.9 Cerebral palsy, unspecified; F20.9 Schizophrenia, unspecified; Z86.73 Personal history of transient ischemic attack (TIA), and cerebral infarction without residual deficits
CPT/HCPCS: 36415; 74176; 80048; 85025; 85610; 85730; 99284; G0378; J7030

== ENCOUNTER 2019-04-13 12:46 | Emergency (ER) | payer MEDICARE ==
--- NOTE | 2019-04-13 13:10 | Event Note ---
ED Screening Note ED Screening Note: Ms. Hill presents with dislodged feeding tube since 8:[address] Feliciano placed G-J tube last fall. Sister caregiver has 22 Mongolian tube in bag. This initial assessment/diagnostic orders/clinical plan/treatment(s) is/are subject to change based on patients health status, clinical progression and re- assessment by fellow clinical providers in the ED. Further treatment and workup at subsequent clinical providers discretion. Patient/guardian urged not to elope from the ED as their condition may be serious if not clinically assessed and managed. Initial orders include: labs ordered
[2019-04-13 13:12] VITALS: BP 137/86
--- NOTE | 2019-04-13 15:52 | Emergency Department Report ---
ED General Adult HPI - General Chief complaint: Medical Clearance Stated complaint: TUBE OUT OF STOMACH Time Seen by Provider: 04/13/19 14:57 Source: family Mode of arrival: Wheelchair Limitations: Other - History of Present Illness Initial comments: 68-year-old female with a past medical history of schizophrenia, cerebral palsy, co chronic consultation and PEG tube dependence presents to the hospital with complaints of his place a feeding tube. Patient has a 22 Australian feeding tube that has been out since 8:30 PM. Patient's commercial review appraiser/family member accidentally pulled the tube out and was under the impression that the visiting nurse will be able to replace it. Today they tell them that they are unable to replace the feeding tube pain recommended patient to come to the ER. - Related Data Previous Rx's Medication Instructions Recorded Last Taken Type Acetaminophen [Acetaminophen 2 tab [place] Q6H PRN #15 supp.rect 02/05/19 Unknown Rx SUPPOS] Ipratropium/Albuterol Sulfate 1 ampul IH TIDRT #30 ampul.neb 02/05/19 Unknown Rx [DUONEB *Not for PRN Use*] LORazepam [Ativan] 1 mg PO BID #30 tablet 02/05/19 Unknown Rx Lipase/Protease/Amylase [Pancreaze 1 each FEEDTUBE PRN PRN #30 capsule 02/05/19 Unknown Rx 10,500 Unit] QUEtiapine [SEROquel] 400 mg PO QHS #30 tablet 02/05/19 Unknown Rx Simple Syrup 15 ml FEEDTUBE PRN PRN #30 02/05/19 Unknown Rx oral.liqd Simple Syrup 30 ml FEEDTUBE PRN PRN #30 02/05/19 Unknown Rx oral.liqd Sodium Bicarbonate 325 mg FEEDTUBE PRN PRN #30 tablet 02/05/19 Unknown Rx haloperidoL [Haldol] 5 mg PO QHS #30 tablet 02/05/19 Unknown Rx Acetaminophen [Acetaminophen TAB] 650 mg PO Q4H PRN tablet 02/20/19 Unknown Rx Allergies Allergy/AdvReac Type Severity Reaction Status Date / Time No Known Allergies Allergy Verified 04/13/19 13:01 ED Review of Systems ROS: Stated complaint: TUBE OUT OF STOMACH Other details as noted in HPI Comment: Unobtainable due to pts medical conditions (Cerebral palsy) ED Past Medical Hx - Past Medical History Hx Hypertension: No Hx Heart Attack/AMI: No Hx Liver Disease: No Hx Renal Disease: No Hx Sickle Cell Disease: No Hx Seizures: Yes (childhood) Hx Psychiatric Treatment: Yes (schizophrenia) Hx Asthma: No Hx COPD: No Additional medical history: Chronic Constipation. cerbral palsy - Surgical History Hx Pacemaker: No Hx Internal Defibrillator: No Additional Surgical History: PEG tube placement in the past - Social History Smoking Status: Never Smoker Substance Use Type: None - Medications Home Medications: Home Medications Medication Instructions Recorded Confirmed Last Taken Type Acetaminophen [Acetaminophen 2 tab [place] Q6H PRN #15 supp.rect 02/05/19 Unknown Rx SUPPOS] Ipratropium/Albuterol Sulfate 1 ampul IH TIDRT #30 ampul.neb 02/05/19 Unknown Rx [DUONEB *Not for PRN Use*] LORazepam [Ativan] 1 mg PO BID #30 tablet 02/05/19 Unknown Rx Lipase/Protease/Amylase [Pancreaze 1 each FEEDTUBE PRN PRN #30 capsule 02/05/19 Unknown Rx 10,500 Unit] QUEtiapine [SEROquel] 400 mg PO QHS #30 tablet 02/05/19 Unknown Rx Simple Syrup 15 ml FEEDTUBE PRN PRN #30 02/05/19 Unknown Rx oral.liqd Simple Syrup 30 ml FEEDTUBE PRN PRN #30 02/05/19 Unknown Rx oral.liqd Sodium Bicarbonate 325 mg FEEDTUBE PRN PRN #30 tablet 02/05/19 Unknown Rx haloperidoL [Haldol] 5 mg PO QHS #30 tablet 02/05/19 Unknown Rx Acetaminophen [Acetaminophen TAB] 650 mg PO Q4H PRN tablet 02/20/19 Unknown Rx ED Physical Exam - General Limitations: Other - Other Other exam information: General: No acute distress Head: Atraumatic Eyes: normal appearance ENT: Moist mucous membranes Neck: Normal appearance, no midline tenderness Chest: Clear to auscultation bilaterally CV: Regular rate and rhythm Abdomen: Soft, normal bowel sounds, nontender, nondistended, no rebound or guarding. Opening to G-tube stoma appeared to be closed but was able to be probed open with a Q-tip. S stoma is not big enough for insertion a 22 Australian G-tube. Gel loop was placed and 14 Australian G-tube was placed through stoma site. Back: Normal inspection Extremity: Normal inspection, full range of motion Neuro: Alert O x 3, no facial asymmetry, speech clear, no gross motor sensory deficit Psych: Appropriate behavior Skin: No rash ED Course Vital Signs 04/13/19 13:10 Pulse Rate 74 Respiratory 75 H Rate Blood Pressure 137/86 O2 Sat by Pulse 100 Oximetry - Procedure Description Procedures done: G-tube insertion: Stoma site probed with Q-tip and lube. Lube placed and 14 Australian G tube placed into stoma site. Balloon filled with 5 mL of normal saline. X-ray G-tube study obtained. ED Medical Decision Making - Radiology Data Radiology results: report reviewed SPOT FILM OF ABDOMEN INDICATION / CLINICAL INFORMATION: g tube placement in ed. COMPARISON: None available. FINDINGS: Contrast injected through the gastric tube is demonstrated within the stomach, indicating proper positioning of the tube. - Medical Decision Making Case was discussed with the surgeon Dr. Feliciano who is very familiar with the patient. Initially a GJ tube was placed due to possible aspiration risk given speech/swallowing issues which improved. G-tube reinsertion only is acceptable and patient does not require emergent GJ-tube placement at this time. G-tube placed in the ED without difficulty and confirmed with G-tube study prior to discharge. - Differential Diagnosis G-tube displacement Critical Care Time: No Critical care attestation.: If time is entered above; I have spent that time in minutes in the direct care of this critically ill patient, excluding procedure time. ED Disposition Clinical Impression: Encounter for feeding tube placement Disposition: DC-01 TO HOME OR SELFCARE Is pt being admited?: No Does the pt Need Aspirin: No Condition: Stable Instructions: How to Use and Care for Your PEG Tube (ED) Additional Instructions: Follow-up with your doctor or doctor/clinic provided. You may need placement of a larger size tube. Your primary care doctor can coordinate follow-up with the appropriate physician. You have also been provided follow-up with a GI d juan. Return if symptoms worsen as indicated by your discharge instructions. Referrals: ROBERTO AVILES MD [Staff Physician] - 3-5 Days (GI doctor) SHANTI RAMOS MD [Primary Care Provider] - 3-5 Days Time of Disposition: 17:27
--- NOTE | 2019-04-13 17:21 | XRay Report ---
SPOT FILM OF ABDOMEN INDICATION / CLINICAL INFORMATION: g tube placement in ed. COMPARISON: None available. FINDINGS: Contrast injected through the gastric tube is demonstrated within the stomach, indicating proper posi tioning of the tube. Signer Name: Isidro Mackenzie MD Signed: 04/13/2019 5:17 PM Workstation Name: [id number]
== END 2019-04-13 18:17 | disposition home or self-care (01) ==
LOC: ED 12:46
DX: G40.909 Epilepsy, unspecified, not intractable, without status epilepticus (principal); F20.9 Schizophrenia, unspecified; Z43.1 Encounter for attention to gastrostomy; Z98.890 Other specified postprocedural states; Z79.899 Other long term (current) drug therapy
CPT/HCPCS: 43762; 74018; 99282; Q9967

== ENCOUNTER 2019-05-29 08:46 | Emergency (ER) | payer MEDICARE ==
--- NOTE | 2019-05-29 10:13 | Emergency Department Report ---
ED Abdominal Pain HPI - General Chief Complaint: Tube Replacement Stated Complaint: G TUBE/STOMACH PAIN Time Seen by Provider: 05/29/19 10:01 Source: patient, family Mode of arrival: Ambulatory Limitations: Physical Limitation, Other (Chronic communication difficult) - History of Present Illness Initial Comments: 69-year-old female with a past medical history of schizophrenia, cerebral palsy, and PEG tube dependence presents to the hospital with complaints of his place a feeding tube. [employer]/family member states that patient pulled out her PEG t ube. She noticed it was out since 7:30 AM. Patient was at [facility] last night with the same complaint and had PEG tube replaced was discharged at 2 AM. Patient received all her meds and nutrition via PEG tube. - Related Data Previous Rx's Medication Instructions Recorded Last Taken Type Acetaminophen [Acetaminophen 2 tab W[place] Q6H PRN #15 supp.rect 02/05/19 Unknown Rx SUPPOS] Ipratropium/Albuterol Sulfate 1 ampul IH TIDRT #30 ampul.neb 02/05/19 Unknown Rx [DUONEB *Not for PRN Use*] LORazepam [Ativan] 1 mg PO BID #30 tablet 02/05/19 Unknown Rx Lipase/Protease/Amylase [Pancreaze 1 each FEEDTUBE PRN PRN #30 capsule 02/05/19 Unknown Rx 10,500 Unit] QUEtiapine [SEROquel] 400 mg PO QHS #30 tablet 02/05/19 Unknown Rx Simple Syrup 15 ml FEEDTUBE PRN PRN #30 02/05/19 Unknown Rx oral.liqd Simple Syrup 30 ml FEEDTUBE PRN PRN #30 02/05/19 Unknown Rx oral.liqd Sodium Bicarbonate 325 mg FEEDTUBE PRN PRN #30 tablet 02/05/19 Unknown Rx haloperidoL [Haldol] 5 mg PO QHS #30 tablet 02/05/19 Unknown Rx Acetaminophen [Acetaminophen TAB] 650 mg PO Q4H PRN tablet 02/20/19 Unknown Rx Allergies Allergy/AdvReac Type Severity Reaction Status Date / Time No Known Allergies Allergy Verified 04/13/19 13:01 ED Review of Systems ROS: Stated complaint: G TUBE/STOMACH PAIN Other details as noted in HPI Comment: All other systems reviewed and negative (As per experiential therapist since patient is nonverbal) ED Past Medical Hx - Past Medical History Hx Hypertension: No Hx Heart Attack/AMI: No Hx Liver Disease: No Hx Renal Disease: No Hx Sickle Cell Disease: No Hx Seizures: Yes (childhood) Hx Psychiatric Treatment: Yes (schizophrenia) Hx Asthma: No Hx COPD: No Additional medical history: Chronic Constipation. cerbral palsy - Surgical History Hx Pacemaker: No Hx Internal Defibrillator: No Additional Surgical History: PEG tube placement in the past - Social History Smoking Status: Never Smoker Substance Use Type: None - Medications Home Medications: Home Medications Medication Instructions Recorded Confirmed Last Taken Type Acetaminophen [Acetaminophen 2 tab WV Q6H PRN #15 supp.rect 02/05/19 Unknown Rx SUPPOS] Ipratropium/Albuterol Sulfate 1 ampul IH TIDRT #30 ampul.neb 02/05/19 Unknown Rx [DUONEB *Not for PRN Use*] LORazepam [Ativan] 1 mg PO BID #30 tablet 02/05/19 Unknown Rx Lipase/Protease/Amylase [Pancreaze 1 each FEEDTUBE PRN PRN #30 capsule 02/05/19 Unknown Rx 10,500 Unit] QUEtiapine [SEROquel] 400 mg PO QHS #30 tablet 02/05/19 Unknown Rx Simple Syrup 15 ml FEEDTUBE PRN PRN #30 02/05/19 Unknown Rx oral.liqd Simple Syrup 30 ml FEEDTUBE PRN PRN #30 02/05/19 Unknown Rx oral.liqd Sodium Bicarbonate 325 mg FEEDTUBE PRN PRN #30 tablet 02/05/19 Unknown Rx haloperidoL [Haldol] 5 mg PO QHS #30 tablet 02/05/19 Unknown Rx Acetaminophen [Acetaminophen TAB] 650 mg PO Q4H PRN tablet 02/20/19 Unknown Rx ED Physical Exam - General Limitations: No Limitations - Other Other exam information: General: No acute distress Head: Atraumatic Eyes: normal appearance ENT: Moist mucous membranes Neck: Normal appearance, no midline tenderness Chest: Clear to auscultation bilaterally CV: Regular rate and rhythm Abdomen: Soft, normal bowel sounds, nontender, nondistended, no rebound or guarding. Left upper quadrant stoma Back: Normal inspection Extremity: Normal inspection, full range of motion Neuro: Alert Psych: Appropriate behavior Skin: No rash ED Course Vital Signs 05/29/19 09:12 Pulse Rate 92 H Respiratory 18 Rate Blood Pressure 114/86 O2 Sat by Pulse 100 Oximetry - Procedure Description Procedures done: G-tube placement. Lube placed and 14 [place] PEG tube inserted and 5 mL normal saline placed in balloon. ED Medical Decision Making - Radiology Data Radiology results: report reviewed (g tube xray: g tube in stomach, contast from previous study noted) - Medical Decision Making 14 [place] Critical Care Time: No Critical care attestation.: If time is entered above; I have spent that time in minutes in the direct care of this critically ill patient, excluding procedure time. ED Disposition Clinical Impression: Cerebral palsy, Gastrojejunostomy tube dislodgement, Gastrostomy tube in place Disposition: DC-01 TO HOME OR SELFCARE Is pt being admited?: No Does the pt Need Aspirin: No Condition: Stable Instructions: How to Use and Care for Your PEG Tube (ED) Additional Instructions: Follow-up with your doctor or doctor/clinic provided. Return if symptoms worsen as indicated by your discharge instructions. Referrals: BROCK FAGAN MD [Primary Care Provider] - 3-5 Days [facility] [Provider Group] - 3-5 Days Time of Disposition: 11:43
--- NOTE | 2019-05-29 11:38 | XRay Report ---
ABDOMEN 1 VIEW(S) INDICATION / CLINICAL INFORMATION: s/p g tube placement. COMPARISON: 04/13/2019 FINDINGS: TUBES / LINES: Gastrostomy tube is noted. Contrast injected exam is noted in the stomach and duodenum . Tube appears appropriately positioned stomach. BOWEL GAS PATTERN/EXTRALUMINAL GAS: On the airframe and power plant mechanic image, there is contrast media throughout the colon indicating recent barium study No pneumatosis or secondary signs of free air. ADDITIONAL FINDINGS: No significant additional findings. IMPRESSION: 1. Gastrostomy tube is in stomach. There is contrast media throughout the colon indicating recent bar ium study performed elsewhere Signer Name: Terry Bueno MD Signed: 05/29/2019 11:33 AM Workstation Name: [id number]
[2019-05-29 12:35] VITALS: BP 154/99
== END 2019-05-29 12:04 | disposition home or self-care (01) ==
LOC: ED 08:46
DX: K94.29 Other complications of gastrostomy (principal); F20.9 Schizophrenia, unspecified; G80.9 Cerebral palsy, unspecified
CPT/HCPCS: 43762; 74018; 99283; Q9967

== ENCOUNTER 2021-10-17 19:58 | Emergency (ER) | payer MEDICARE ==
[2021-10-17 20:01] VITALS: BP 112/71
[2021-10-17] MEDS ORDERED: SODIUM CHLORIDE 0.9% 1000 ML 1,000 ML IV ONE (20:52)
[2021-10-17 21:46] LABS: Basophils % (Auto) 0.6 % (0.0-1.8); Eosinophils % (Auto) 0.9 % (0.0-4.3); Hematocrit 34.5 % (30.3-42.9); Hemoglobin 11.1 gm/dl (10.1-14.3); Lymphocytes # (Auto) 1.5 K/mm3 (1.2-5.4); Lymphocytes % (Auto) 34.7 % (13.4-35.0); Mean Corpuscular HGB Conc 32 % (30-34); Mean Corpuscular Volume 87 fl (79-97); Monocytes # (Auto) 0.3 K/mm3 (0.0-0.8); Monocytes % (Auto) 7.7 % (0.0-7.3); Platelet Count 220 K/mm3 (140-440); Red Blood Count 3.95 M/mm3 (3.65-5.03); Red Cell Distribution Width 16.8 % (13.2-15.2)
[2021-10-17 21:50] LABS: Amphetamine Screen,Urine PRESUMPTIVE NEGATIVE; Benzodiazepines Screen,Urine PRESUMPTIVE NEGATIVE; Cannabinoid Screen,Urine PRESUMPTIVE NEGATIVE; Cocaine Screen,Urine PRESUMPTIVE NEGATIVE; Methadone Screen,Urine PRESUMPTIVE NEGATIVE; Opiate Screen,Urine PRESUMPTIVE NEGATIVE
[2021-10-17 21:57] LABS: Bacteria,Urine 1+ /HPF (Negative)
--- NOTE | 2021-10-17 22:04 | Cat Scan Report ---
CT HEAD WITHOUT CONTRAST INDICATION / CLINICAL INFORMATION: ams. TECHNIQUE: All CT scans at this location are performed using CT dose reduction for ALARA by means of automated exposure control. COMPARISON: 01/13/2019 FINDINGS: HEMORRHAGE: None. EXTRA-AXIAL SPACES: Normal in size and morphology for the patient's age. VENTRICULAR SYSTEM: Normal in size and morphology for the patient's age. CEREBRAL PARENCHYMA: No significant abnormality. No acute territorial infarct. MIDLINE SHIFT / HERNIATION: None. CEREBELLUM / BRAINSTEM: No significant abnormality. ORBITS: Normal as visualized. SOFT TISSUES: No significant abnormality. SKULL: No significant abnormality. PARANASAL SINUSES / MASTOID AIR CELLS: Normal as visualized. ADDITIONAL FINDINGS: None. IMPRESSION: 1. No acute intracranial abnormality. Signer Name: Alexandro Gray MD Signed: 10/17/2021 9:59 PM Workstation Name: [id number]
--- NOTE | 2021-10-17 22:06 | XRay Report ---
CHEST 1 VIEW 10/17/2021 9:10 PM INDICATION / CLINICAL INFORMATION: Altered Mental Status. COMPARISON: 02/01/2019 FINDINGS: SUPPORT DEVICES: None. HEART / MEDIASTINUM: No significant abnormality. LUNGS / PLEURA: No significant pulmonary or pleural abnormality. No pneumothorax. ADDITIONAL FINDINGS: Large amount of fecal material in the colon with fecalization of small bowel con tents. IMPRESSION: 1. No acute cardiopulmonary abnormality. 2. Large fecal burden. Signer Name: Alexandro Gray MD Signed: 10/17/2021 10:02 PM Workstation Name: [email or web address]
[2021-10-17 22:07] LABS: INR 0.86 (0.87-1.13)
[2021-10-17 22:14] LABS: Color,Urine Yellow (Yellow)
[2021-10-17 22:16] LABS: BUN/Creatinine Ratio 33; Blood Urea Nitrogen 23 mg/dL (7-17)
[2021-10-17 22:17] LABS: Alanine Aminotransferase 38 units/L (7-56); Albumin 3.9 g/dL (3.9-5); Calcium 9.1 mg/dL (8.4-10.2)
[2021-10-17] MEDS ORDERED: SODIUM POLYSTYRENE 15 GM/60 ML ORAL LIQD PR ONE (22:18)
[2021-10-18 02:43] LABS: BUN/Creatinine Ratio 30; Blood Urea Nitrogen 21 mg/dL (7-17)
[2021-10-18 02:44] LABS: Calcium 8.7 mg/dL (8.4-10.2)
[2021-10-18] MEDS ORDERED: DEXTROSE 50% IN WATER (25GM) 50 ML SYRINGE IV ONE (02:45)
[2021-10-18] MEDS ORDERED: SODIUM CHLORIDE 0.9% 1000 ML 1,000 ML IV ONE (02:46)
[2021-10-18] MEDS ORDERED: INSULIN REGULAR, HUMAN 100 UNITS/1 ML IV ONE ×2 (02:46→02:47)
--- NOTE | 2021-10-18 03:05 | Emergency Department Report ---
ED General Adult HPI - General Chief complaint: Altered Mental Status Stated complaint: AMSS Time Seen by Provider: 10/17/21 21:14 Source: EMS Mode of arrival: Stretcher Limitations: Altered Mental Status - History of Present Illness Initial comments: Patient is 71-year-old female sent from nursing for home for decreased responsiveness. She reportedly took a nap around 3 PM and was unarousable afterwards. History of cerebral palsy and does not speak. Vital signs stable on arrival. - Related Data Previous Rx's Medication Instructions Recorded Last Taken Type Acetaminophen [Acetaminophen 2 tab MD Q6H PRN #15 supp.rect 02/05/19 Unknown Rx SUPPOS] Ipratropium/Albuterol Sulfate 1 ampul IH TIDRT #30 ampul.neb 02/05/19 Unknown Rx [DUONEB *Not for PRN Use*] LORazepam [Ativan] 1 mg PO BID #30 tablet 02/05/19 Unknown Rx Lipase/Protease/Amylase [Pancreaze 1 each FEEDTUBE PRN PRN #30 capsule 02/05/19 Unknown Rx 10,500 Unit] QUEtiapine [SEROquel] 400 mg PO QHS #30 tablet 02/05/19 Unknown Rx Simple Syrup 15 ml FEEDTUBE PRN PRN #30 02/05/19 Unknown Rx oral.liqd Simple Syrup 30 ml FEEDTUBE PRN PRN #30 02/05/19 Unknown Rx oral.liqd Sodium Bicarbonate 325 mg FEEDTUBE PRN PRN #30 tablet 02/05/19 Unknown Rx haloperidoL [Haldol] 5 mg PO QHS #30 tablet 02/05/19 Unknown Rx Acetaminophen [Acetaminophen TAB] 650 mg PO Q4H PRN tablet 02/20/19 Unknown Rx Allergies Allergy/AdvReac Type Severity Reaction Status Date / Time No Known Allergies Allergy Verified 04/13/19 13:01 ED Review of Systems ROS: Stated complaint: AMSS Other details as noted in HPI Comment: Unobtainable due to pts medical conditions ED Past Medical Hx - Past Medical History Previous Medical History?: Yes Hx Hypertension: No Hx CVA: No Hx Heart Attack/AMI: No Hx Diabetes: No Hx Liver Disease: No Hx Renal Disease: No Hx Sickle Cell Disease: No Hx Arthritis: No Hx Seizures: No Hx Psychiatric Treatment: Yes (schizophrenia) Hx Asthma: No Hx COPD: No Additional medical history: Chronic Constipation. cerbral palsy - Surgical History Past Surgical History?: Yes Hx Pacemaker: No Hx Internal Defibrillator: No Additional Surgical History: PEG tube placement in the past - Social History Smoking Status: Never Smoker Substance Use Type: None - Medications Home Medications: Home Medications Medication Instructions Recorded Confirmed Last Taken Type Acetaminophen [Acetaminophen 2 tab MD Q6H PRN #15 supp.rect 02/05/19 Unknown Rx SUPPOS] Ipratropium/Albuterol Sulfate 1 ampul IH TIDRT #30 ampul.neb 02/05/19 Unknown Rx [DUONEB *Not for PRN Use*] LORazepam [Ativan] 1 mg PO BID #30 tablet 02/05/19 Unknown Rx Lipase/Protease/Amylase [Pancreaze 1 each FEEDTUBE PRN PRN #30 capsule 02/05/19 Unknown Rx 10,500 Unit] QUEtiapine [SEROquel] 400 mg PO QHS #30 tablet 02/05/19 Unknown Rx Simple Syrup 15 ml FEEDTUBE PRN PRN #30 02/05/19 Unknown Rx oral.liqd Simple Syrup 30 ml FEEDTUBE PRN PRN #30 02/05/19 Unknown Rx oral.liqd Sodium Bicarbonate 325 mg FEEDTUBE PRN PRN #30 tablet 02/05/19 Unknown Rx haloperidoL [Haldol] 5 mg PO QHS #30 tablet 02/05/19 Unknown Rx Acetaminophen [Acetaminophen TAB] 650 mg PO Q4H PRN tablet 02/20/19 Unknown Rx ED Physical Exam - General Limitations: Altered Mental Status General appearance: alert, in no apparent distress - Head Head exam: Present: atraumatic, normocephalic - Respiratory Respiratory exam: Present: normal lung sounds bilaterally. Absent: respiratory distress - Cardiovascular Cardiovascular Exam: Present: regular rate, normal rhythm, normal heart sounds - GI/Abdominal GI/Abdominal exam: Present: soft. Absent: distended, tenderness - Neurological Exam Neurological exam: Present: alert (Patient is awake and making purposeful movements.) - Skin Skin exam: Present: warm, dry, intact, normal color ED Course Vital Signs 10/17/21 19:59 Temperature 98 F Pulse Rate 70 Respiratory 17 Rate Blood Pressure 112/71 [Left] O2 Sat by Pulse 98 Oximetry ED Medical Decision Making - Lab Data Result diagrams: 10/17/21 21:14 10/18/21 01:31 - Medical Decision Making CT head unremarkable. Chest x-ray is also unremarkable. Labs are grossly unremarkable except for mild hyperkalemia of 5.4. Patient given rectal Kayexalate. Repeat potassium trending downward (5.2). On reassessment patient is awake, alert and making sounds. Will discharge back to nursing facility with instructions to follow-up for repeat potassium level in 3-5 days. Critical care attestation.: If time is entered above; I have spent that time in minutes in the direct care of this critically ill patient, excluding procedure time. ED Disposition Clinical Impression: Decreased responsiveness, Hyperkalemia Disposition: 03 [facility] FACILITY Is pt being admited?: No Condition: Stable Instructions: Hyperkalemia Additional Instructions: Please follow-up with your PCP in 3 to 5 days to recheck your potassium level. Time of Disposition: 03:11
[2021-10-18 03:18] LABS: Hemolysis Index 25
--- NOTE | 2021-10-20 13:49 | Electrocardiograph Report ---
[facility] Test Date: 2021-10-17 Test Time: 20:46:10 Pat Name: TEJAL JAMES Department: Room: Gender: F Implement Mechanic: ERNIE : 1950 Requested By: MIKE EDWARDS Order Number: [id number] Reading MD: Cathie Pascual Measurements Intervals [place] Rate: 59 P: 80 MS: 145 QRS: 63 QRSD: 97 T: 68 QT: 433 QTc: 430 Interpretive Statements Sinus bradycardia No previous ECG available for comparison Electronically Signed On 10-20-2021 13:49:36 EDT by Cathie Pascual
== END 2021-10-18 04:55 ==
LOC: ED 19:58
DX: R46.4 Slowness and poor responsiveness (principal); E87.6 Hypokalemia
CPT/HCPCS: 36415; 70450; 71045; 80048; 80053; 80307; 81001; 82140; 82550; 84484; 85025; 85610; 93005; 96360; 96361; 99285; J7030; 80320; Q9967; G0480; J1815

== ENCOUNTER 2021-10-30 13:16 | Emergency (ER) | payer MEDICARE ==
--- NOTE | 2021-10-30 15:32 | XRay Report ---
ABDOMEN 1 VIEW(S) INDICATION / CLINICAL INFORMATION: Abdominal Pain. COMPARISON: None available. FINDINGS: TUBES / LINES: None. BOWEL GAS PATTERN/EXTRALUMINAL GAS: No acute findings. Moderate constipation. No pneumatosis or secon maricarmen signs of free air. ADDITIONAL FINDINGS: No significant additional findings. IMPRESSION: 1. No acute findings. Moderate constipation. Signer Name: Rufus Olivier MD Signed: 10/30/2021 3:28 PM Workstation Name: [employer]
[2021-10-30 15:58] LABS: Blood Urea Nitrogen 18 mg/dL (7-17); Hemolysis Index 12
[2021-10-30 15:59] LABS: Basophils % (Auto) 0.6 % (0.0-1.8); Eosinophils # (Auto) 0.1 K/mm3 (0.0-0.4); Eosinophils % (Auto) 2.2 % (0.0-4.3); Hematocrit 29.1 % (30.3-42.9); Hemoglobin 9.7 gm/dl (10.1-14.3); Lymphocytes # (Auto) 1.3 K/mm3 (1.2-5.4); Mean Corpuscular HGB Conc 33 % (30-34); Mean Corpuscular Volume 87 fl (79-97); Monocytes # (Auto) 0.3 K/mm3 (0.0-0.8); Monocytes % (Auto) 8.1 % (0.0-7.3); Platelet Count 226 K/mm3 (140-440); Red Blood Count 3.34 M/mm3 (3.65-5.03); Red Cell Distribution Width 17.2 % (13.2-15.2)
[2021-10-30 16:03] LABS: BUN/Creatinine Ratio 30
--- NOTE | 2021-10-30 17:56 | Emergency Department Report ---
ED General Adult HPI - General Chief complaint: Abdominal Pain Stated complaint: CONSTIPATION Time Seen by Provider: 10/30/21 14:18 Source: EMS Mode of arrival: Stretcher Limitations: Physical Limitation - History of Present Illness Severity scale (0 -10): 0 - Related Data Previous Rx's Medication Instructions Recorded Last Taken Type Acetaminophen [Acetaminophen 2 tab [place] Q6H PRN #15 supp.rect 02/05/19 Unknown Rx SUPPOS] Ipratropium/Albuterol Sulfate 1 ampul IH TIDRT #30 ampul.neb 02/05/19 Unknown Rx [DUONEB *Not for PRN Use*] LORazepam [Ativan] 1 mg PO BID #30 tablet 02/05/19 Unknown Rx Lipase/Protease/Amylase [Pancreaze 1 each FEEDTUBE PRN PRN #30 capsule 02/05/19 Unknown Rx 10,500 Unit] QUEtiapine [SEROquel] 400 mg PO QHS #30 tablet 02/05/19 Unknown Rx Simple Syrup 15 ml FEEDTUBE PRN PRN #30 02/05/19 Unknown Rx oral.liqd Simple Syrup 30 ml FEEDTUBE PRN PRN #30 02/05/19 Unknown Rx oral.liqd Sodium Bicarbonate 325 mg FEEDTUBE PRN PRN #30 tablet 02/05/19 Unknown Rx haloperidoL [Haldol] 5 mg PO QHS #30 tablet 02/05/19 Unknown Rx Acetaminophen [Acetaminophen TAB] 650 mg PO Q4H PRN tablet 02/20/19 Unknown Rx Polyethylene Glycol 3350 [Miralax] 119 gm PO DAILY #7 10/30/21 Unknown Rx Allergies Allergy/AdvReac Type Severity Reaction Status Date / Time No Known Allergies Allergy Verified 10/30/21 13:27 ED Review of Systems ROS: Stated complaint: CONSTIPATION Other details as noted in HPI ED Past Medical Hx - Past Medical History Previous Medical History?: Yes Hx Hypertension: No Hx CVA: No Hx Heart Attack/AMI: No Hx Diabetes: No Hx Liver Disease: No Hx Renal Disease: No Hx Sickle Cell Disease: No Hx Arthritis: No Hx Seizures: No Hx Psychiatric Treatment: Yes (schizophrenia) Hx Asthma: No Hx COPD: No Additional medical history: Chronic Constipation. cerbral palsy - Surgical History Hx Pacemaker: No Hx Internal Defibrillator: No Additional Surgical History: PEG tube placement in the past - Social History Smoking Status: Never Smoker Substance Use Type: None - Medications Home Medications: Home Medications Medication Instructions Recorded Confirmed Last Taken Type Acetaminophen [Acetaminophen 2 tab [place] Q6H PRN #15 supp.rect 02/05/19 Unknown Rx SUPPOS] Ipratropium/Albuterol Sulfate 1 ampul IH TIDRT #30 ampul.neb 02/05/19 Unknown Rx [DUONEB *Not for PRN Use*] LORazepam [Ativan] 1 mg PO BID #30 tablet 02/05/19 Unknown Rx Lipase/Protease/Amylase [Pancreaze 1 each FEEDTUBE PRN PRN #30 capsule 02/05/19 Unknown Rx 10,500 Unit] QUEtiapine [SEROquel] 400 mg PO QHS #30 tablet 02/05/19 Unknown Rx Simple Syrup 15 ml FEEDTUBE PRN PRN #30 02/05/19 Unknown Rx oral.liqd Simple Syrup 30 ml FEEDTUBE PRN PRN #30 02/05/19 Unknown Rx oral.liqd Sodium Bicarbonate 325 mg FEEDTUBE PRN PRN #30 tablet 02/05/19 Unknown Rx haloperidoL [Haldol] 5 mg PO QHS #30 tablet 02/05/19 Unknown Rx Acetaminophen [Acetaminophen TAB] 650 mg PO Q4H PRN tablet 02/20/19 Unknown Rx Polyethylene Glycol 3350 [Miralax] 119 gm PO DAILY #7 10/30/21 Unknown Rx ED Physical Exam - General Limitations: Physical Limitation General appearance: alert, in no apparent distress - Head Head exam: Present: atraumatic, normocephalic - Eye Eye exam: Present: normal appearance - ENT ENT exam: Present: mucous membranes moist - Neck Neck exam: Present: normal inspection - Respiratory Respiratory exam: Present: normal lung sounds bilaterally. Absent: respiratory distress - Cardiovascular Cardiovascular Exam: Present: regular rate, normal rhythm. Absent: systolic murmur, diastolic murmur, rubs, gallop - GI/Abdominal GI/Abdominal exam: Present: soft, normal bowel sounds - Extremities Exam Extremities exam: Present: normal inspection - Back Exam Back exam: Present: normal inspection - Neurological Exam Neurological exam: Present: alert, oriented X3 - Psychiatric Psychiatric exam: Present: normal affect, normal mood - Skin Skin exam: Present: warm, dry, intact, normal color. Absent: rash ED Course Vital Signs 10/30/21 10/30/21 13:23 13:40 Temperature 98.2 F Pulse Rate 83 88 Respiratory 18 17 Rate Blood Pressure 144/88 151/93 [Left] O2 Sat by Pulse 98 97 Oximetry ED Medical Decision Making - Lab Data Result diagrams: 10/30/21 15:13 10/30/21 15:13 - Medical Decision Making constipation noted Critical care attestation.: If time is entered above; I have spent that time in minutes in the direct care of this critically ill patient, excluding procedure time. ED Disposition Clinical Impression: Constipation Disposition: 01 HOME / SELF CARE / HOMELESS Is pt being admited?: No Does the pt Need Aspirin: No Condition: Stable Instructions: Abdominal Pain (ED), Constipation, Adult, [id number]
[2021-10-30 23:44] VITALS: BP 166/99
== END 2021-10-31 00:15 | disposition home or self-care (01) ==
LOC: ED 13:16
DX: K59.00 Constipation, unspecified (principal)
CPT/HCPCS: 36415; 74018; 80048; 85025; 99284

== ENCOUNTER 2021-11-18 04:23 | Emergency (ER) | payer MEDICARE ==
--- NOTE | 2021-11-18 06:49 | Emergency Department Report ---
HPI - General Chief Complaint: Extremity Injury, Upper PUI?: No Time Seen by Provider: 11/18/21 06:37 - HPI HPI: 71-year-old female with multiple medical comorbidities, sent from half-way for right hand swelling. Patient is nonverbal. There is no documented paperwork that accompanies the patient clarifying onset of swelling, duration of swelling, or if the patient appeared to be in pain. This patient given that she is non verbal cannot provide HPI. And so remainder of ROS is unable to be obtained. ED Past Medical Hx - Past Medical History Previous Medical History?: Yes Hx Hypertension: No Hx CVA: No Hx Heart Attack/AMI: No Hx Diabetes: No Hx Liver Disease: No Hx Renal Disease: No Hx Sickle Cell Disease: No Hx Arthritis: No Hx Seizures: No Hx Psychiatric Treatment: Yes (schizophrenia) Hx Asthma: No Hx COPD: No Additional medical history: Chronic Constipation. cerbral palsy - Surgical History Hx Pacemaker: No Hx Internal Defibrillator: No Additional Surgical History: PEG tube placement in the past - Social History Smoking Status: Unknown if ever smoked - Medications Home Medications: Home Medications Medication Instructions Recorded Confirmed Last Taken Type Acetaminophen [Acetaminophen 2 tab [place] Q6H PRN #15 supp.rect 02/05/19 Unknown Rx SUPPOS] Ipratropium/Albuterol Sulfate 1 ampul IH TIDRT #30 ampul.neb 02/05/19 Unknown Rx [DUONEB *Not for PRN Use*] LORazepam [Ativan] 1 mg PO BID #30 tablet 02/05/19 Unknown Rx Lipase/Protease/Amylase [Pancreaze 1 each FEEDTUBE PRN PRN #30 capsule 02/05/19 Unknown Rx 10,500 Unit] QUEtiapine [SEROquel] 400 mg PO QHS #30 tablet 02/05/19 Unknown Rx Simple Syrup 15 ml FEEDTUBE PRN PRN #30 02/05/19 Unknown Rx oral.liqd Simple Syrup 30 ml FEEDTUBE PRN PRN #30 02/05/19 Unknown Rx oral.liqd Sodium Bicarbonate 325 mg FEEDTUBE PRN PRN #30 tablet 02/05/19 Unknown Rx haloperidoL [Haldol] 5 mg PO QHS #30 tablet 02/05/19 Unknown Rx Acetaminophen [Acetaminophen TAB] 650 mg PO Q4H PRN tablet 02/20/19 Unknown Rx Polyethylene Glycol 3350 [Miralax] 119 gm PO DAILY #7 10/30/21 Unknown Rx ED Review of Systems ROS: Stated complaint: SWELLING IN HANDS Other details as noted in HPI Comment: Unobtainable due to pts medical conditions Physical Exam - Physical Exam Vital Signs: Vital Signs 11/18/21 06:09 O2 Sat by Pulse 98 Oximetry General: Gen: pt is well appearing, no acute distress; nonverbal HEENT: Normocephalic atraumatic pupils equally round and reactive to light extraocular muscles intact sclera anicteric Neck: Full range of motion, no midline spinal tenderness palpation, no JVD, no carotid bruits, no nuchal rigidity CVS: S1-S2 regular rate and rhythm with no gallops rubs or murmurs, chest wall nontender Pulmonary: Clear to auscultation bilaterally, no wheezes rales or rhonchi Abdomen: Soft nondistended nontender no guarding or rebound tenderness, no palpable deformities or step-offs, normal active bowel sounds, no hepatosplenomegaly, no pulsatile masses; : Deferred Extremities: RUE: No cyanosis mild nonpitting edema to R hand; no warm, no erythema, <2 cap refill in fingers of R hand; no bony ttp on exam; pt has FROM (active) of entire RUE: intact distal peripheral pulses, LUE: wnl Integumentary: Skin normal, no petechia no purpura no abscess no lacerations no evidence of trauma no evidence of infection Neuro: Pt nonverbal, moving extremities Psych: Calm cooperative, nonverbal ED Course Vital Signs 11/18/21 06:09 O2 Sat by Pulse 98 Oximetry ED Medical Decision Making - Radiology Data Radiology results: report reviewed - Medical Decision Making 71yo F sent from half-way for evaluation of R hand swellng, duration unknown. VSS. XRay of hand results reviewed. No gas, no acute bony pathology appreciated. On exam, the pt's compartments in her hand are soft. There is no overt evidence of trauma/infection, and no evidence of compartment syndrome or neurovascular compromise. Pt stable for discharge back to half-way. Critical care attestation.: If time is entered above; I have spent that time in minutes in the direct care of this critically ill patient, excluding procedure time. ED Disposition Clinical Impression: Hand edema Disposition: 01 HOME / SELF CARE / HOMELESS Is pt being admited?: No Does the pt Need Aspirin: No Condition: Stable Instructions: Edema Additional Instructions: The cause of the hand swelling is unclear. There is no evidence of infection and no evidence of a bone fracture or other bone abnormality. Keep her hand elevated as often as possible. Also, apply cool compresses to her hand, for approximately 20 minutes, 2-3 times a day. Have her seen by a primary care doctor if her symptoms do not improve. She may return to the nearest emergency department as soon as possible if she develops spreading redness, worsening hand swelling, any fever of 100.4F or higher, or if any other new worrisome symptoms develop.
--- NOTE | 2021-11-18 07:40 | XRay Report ---
RIGHT HAND, 3 VIEWS INDICATION / CLINICAL INFORMATION: R hand swelling. COMPARISON: None available. FINDINGS: No fracture or dislocation. Mild degenerative changes are present throughout the wrist There is diffuse soft tissue swelling, nonspecific. There is a benign corticated calcification measuring 5 mm along the ventral aspect of the radiocarpal joint. This could represent an osteochondral loose body, but is unlikely the cause of the patient's hand swelling. IMPRESSION:: Nonspecific soft tissue edema throughout the hand. No acute osseous abnormality. Signer Name: Connie Back MD Signed: 11/18/2021 7:36 AM Workstation Name: [id number]
[2021-11-18 13:07] VITALS: BP 154/94
== END 2021-11-18 13:10 | disposition home or self-care (01) ==
LOC: ED 04:23
DX: R60.0 Localized edema (principal); F20.9 Schizophrenia, unspecified; Z98.890 Other specified postprocedural states; Z79.899 Other long term (current) drug therapy
CPT/HCPCS: 99283